=== PATIENT | male | born 1965 | race Caucasian/White ===

== ENCOUNTER 2018-01-28 21:07 | Emergency (ER) | payer OTHER, SELFPAY ==
[2018-01-28 21:07] VITALS: BP 160/81; PULSE 94; RESP 16; TEMP 36.8; O2SAT 97; BMI 34.6
--- NOTE | 2018-01-28 21:35 | CT_ITS ---
STUDY: CT ABDOMEN AND PELVIS WITHOUT CONTRAST REASON FOR EXAM: Male, 53 years old. RIGHT GROIN PAIN RADIATES TO BACK X 2 DAYS, PAINFUL URINATION, PT HAS NERVE STIMULATOR, HX MUSCLE REMOVED FROM ABDOMEN TO PLACE IN LEG RADIATION DOSAGE (If Supplied By Facility): CTDIvol = ( 15.16 ) mGy, DLP = ( 783.99 ) mGycm TECHNIQUE: Transaxial images were obtained from the dome of the diaphragm to the symphysis pubis without oral contrast, and without intravenous contrast. Sagittal and coronal images were reconstructed. Individualized dose optimization techniques were used for this CT. COMPARISON: 03.12.09. FINDINGS: The visualized lung bases are unremarkable. The visualized portions of the heart are within normal limits. There is decreased attenuation of the liver consistent with steatosis. There are multiple gallstones. Normal spleen. There is diffuse atrophy of the pancreas. Normal bilateral adrenal glands. Normal right kidney. Normal left kidney. Normal visualized stomach. Normal small intestine. Stool throughout the colon. The appendix is visualized and appears normal. Normal abdominal aorta. Normal inferior vena cava. Normal retroperitoneum. Normal urinary bladder. There are prostatic calcifications. There is a left sided subcutaneous implanted electronic device with leads extending into the spinal canal. This is likely an SCS (spinal cord stimulator). Normal osseous structures. There is an umbilical hernia containing fat. There is no bowel involvement. There is no incarceration. There is no findings suggesting that this is causing a bowel obstruction. CT/Abdomen/Pelvis without Cont IMPRESSION: There are multiple gallstones. FATTY LIVER. Constipation Electronically Signed: Tommie Schulz MD at 22:32 EDT , Service support ,
[2018-01-28 21:48] LABS: Bacteria 0 SEEN /hpf (None Seen); Color, Urine Yellow (Yellow); Glucose, Dipstick 1000 mg/dl (Normal); Ketone-Dipstick Negative (Negative); Leukocyte Esterase-Dipstick Negative /ul (Negative); Mucous, Urine 0 SEEN /hpf (<or=2+); Nitrite-Dipstick Positive (Negative); Occult Blood-Urine Negative /ul (Negative); Protein-Dipstick 15 mg/dl (Negative); Red Blood Cells-Urine 0 SEEN /hpf (0-5); Specific Gravity, Urine 1.015 (1.002-1.030); Squamous Epithelial Cells - UA 0 SEEN /hpf (0-5); Urine Bilirubin Dipstick Negative (Negative); Urine Clarity Clear (Clear); Urine Urobilinogen Normal (Normal); Urine pH 6.5 (5.0 - 8.0); White Blood Cells 0 SEEN /hpf (0-5)
[2018-01-28 21:59] LABS: Absolute Lymphocyte Count 2.53 X10^3/ul (0.83-4.51); Absolute Neutrophil Count 8.3 X10^3/uL (2.0-7.7); Basophil# 0.05 X10^3/uL; Basophil% 0.4 % (0-1); Eosinophil# 0.13 X10^3/uL; Eosinophils% 1.1 % (0-5); Hematocrit 47.3 % (40-54); Hemoglobin 16.1 g/dl (13.0-16.5); Lymphocyte # 2.53 X10^3/ul (4.0); Lymphocyte % 21.2 % (19-41); Mean Corpuscular Hgb 28.9 pg (27.0-32.0); Mean Corpuscular Volume 84.8 fL (80-94); Mean Platelet Vol. 9.9 fl (6.2-12.0); Monocyte# 0.92 X10^3/uL; Monocyte% 7.7 % (0-10); Neutrophil # 8.29 X10^3/uL (2.7-7.7); Neutrophil % 69.3 % (47-70); Platelet Count 384 K/mm3 (150-450); RBC Distribution Width SD 39.9 fl (35.1-43.9); Red Blood Count 5.58 M/mm3 (4.6-6.2)
[2018-01-28 22:02] LABS: POSITIVE COUNT NO; POSITIVE DIFFERENTIAL NO; POSITIVE MORPHOLOGY NO
[2018-01-28 22:15] LABS: ALB/GLOB Ratio 0.8 RATIO (0.9-2.4); AST(SGOT) 33 U/L (15-37); Alanine Aminotransfer ALT/SGPT 54 U/L (16-61); Albumin, Serum 3.7 g/dL (3.2-5.0); Alkaline Phosphatase 174 U/L (45-117); Anion Gap 8 (5-15); BUN 15 mg/dL (7-18); BUN/Creat Ratio 15.6 RATIO (10-20); Calcium,Total 9.4 mg/dL (8.5-10.1); Chloride 98 mmol/L (98-107); Creatinine, Serum 0.96 mg/dL (0.70-1.30); EST Glomerular Filtration Rate 87 mL/min (>60); Est Glom Filt Rate - Afr Amer 106 mL/min (>60); Estimated Creatinine Clearance 84.16 ml/min; Globulin 4.6 g/dL (2.2-4.2); Glucose 449 mg/dL (74-106); Lipase 104 U/L (73-393); Potassium 4.6 mmol/L (3.5-5.1); Protein, Total 8.3 g/dL (6.4-8.2); Sodium Level 133 mmol/L (136-145)
--- NOTE | 2018-01-28 23:06 | ED.DCSUM_ITS ---
- ER Visit Summary Date of Service: 01/28/18 Chief Complaint: Abdominal pain and back pain History of Present Illness: The patient is a 53 M presenting for evaluation secondary to back pain and abdominal pain. Patient states that he had a gradual onset of right-sided abdomen, right-sided groin, and back pain that goes around his back in a bandlike fashion. Patient states that there was no inciting factor no recent injury, lifting pushing pulling or fall. Pain is sharp and continuous seems to be worse with movement. There is no radiation to the leg. No numbness or weakness. No bowel or bladder incontinence, but the patient does endorse that he has some dysuria and frequency. Urinary frequency is old, the dysuria is new. Patient denies any presence of fevers. Denies any nausea vomiting or diarrhea. Review of systems otherwise negative. Physical Examination: Vital signs within normal limits. Well-nourished obese male no acute distress. Head normocephalic. Moist mucous membranes. No JVD. Heart regular rate and rhythm, lungs sounds clear to auscultation bilaterally. Abdomen was tender in the right lower quadrant with some voluntary guarding. No evidence of masses, hernia, no evidence of pulsatile mass and no rebound tenderness. Patient does have some extension of his pain up into his right upper quadrant. He also has some reproducible pain going around his back in the paraspinal region on the right as well as on the left. 5 out of 5 strength of the patient's right lower extremity. 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 2+ patellar and Achilles reflexes negative clonus and Babinski. Test Results: CBC shows leukocytosis of 12, chemistry unremarkable, liver panel shows mildly elevated alkaline phosphatase of 170 negative lipase urinalysis normal. CT abdomen and pelvis shows gallstones and constipation no evidence of kidney stones, diverticulitis, appendicitis. Emergency Department Course and Treatment: Patient presented for evaluation secondary to abdominal pain and back pain. Physical exam was relatively nonrevealing as the patient seems to has both diffuse abdominal and back pain so workup was obtained. Patient declined pain medication in the ER stating he took some prior to arriving. Patient's workup shows leukocytosis that was mild and likely associated with patient's level of pain. Chemistry liver lipase and urinalysis negative, CT abdomen and pelvis shows gallstones and constipation. Went back and reevaluated the patient, he does have a mild amount of right upper quadrant tenderness so I performed a bedside ultrasound which showed gallstones and a 2 mm gallbladder wall without pericholecystic fluid. Patient continues to have this reproducible pain over the right side of his abdomen that is worse with movement and palpation. He has no overlying vesicular rash. This point patient likely has an element of musculoskeletal pain. Patient was offered muscle relaxant, which she was given. He will be discharged with a course of the same. Patient was recommended signs and symptoms which to return. Disposition: Discharge Impression: 1. Abdominal wall strain This note was generated with [employer] dictation software. It may contain incorrect words, spelling, and punctuation that were not noted in review of the chart prior to signing ED Disposition - Plan for ED Patient: Disposition: Home or Assisted Living Chief Complaint: Back Diagnosis: Abdominal wall strain Instructions: ED Strain Groin Prescriptions: Cyclobenzaprine [Flexeril] 10 mg PO TID PRN #20 tab PRN Reason: Muscle Spasm Referrals: Afsaneh Krause DO [Primary Care Provider] - 1 Week if not improving
--- NOTE | 2018-01-28 23:25 | ED.RN ---
IV DC'ED, CATHETER INTACT, SMALL GAUZE DRESSING PLACED. DISCHARGE INSTRUCTIONS GIVEN TO AND REVIEWED WITH PATIENT, PATIENT DENIES QUESTIONS OR CONCERNS AND VOICES UNDERSTANDING OF DISCHARGE INSTRUCTIONS. PT AMBULATES OUT OF ROOM WITHOUT DIFFICULTY.
== END 2018-01-28 23:26 | disposition home or self-care (01) ==
PROVIDERS: Emergency Provider Emergency Medicine; Family Provider Internal Medicine; PCP Internal Medicine
DX: S39.011A Strain of muscle, fascia and tendon of abdomen, initial encounter (principal); X58.XXXA Exposure to other specified factors, initial encounter; Y93.9 Activity, unspecified; Y92.9 Unspecified place or not applicable; Y99.9 Unspecified external cause status; K80.20 Calculus of gallbladder without cholecystitis without obstruction; K59.00 Constipation, unspecified; R74.8 Abnormal levels of other serum enzymes; M54.9 Dorsalgia, unspecified; G89.29 Other chronic pain; R30.0 Dysuria; K21.9 Gastro-esophageal reflux disease without esophagitis; E66.9 Obesity, unspecified; Z79.899 Other long term (current) drug therapy; Z89.512 Acquired absence of left leg below knee
CPT/HCPCS: 74176; 80053; 81001; 83690; 85025; 99284; A4216

== ENCOUNTER 2020-05-22 11:00 | Outpatient (RCR) | payer OTHER, SELFPAY ==
--- NOTE | 2020-04-23 15:06 | HP.PTEVAL_ITS ---
Patient's Visit Information CONG STEVENS is a 55 year old M referred to Physical Therapy by Dr. Patrice aPck MD with a diagnosis of R knee pain. Date of Evaluation: 04/23/20 Physical Therapist: Tommie Moyer, PT, ATC - Visit Plan Frequency: 3x /Week Duration: 4 Weeks Plan: R LE strengthening, balance and proprio, core stab ex's, nustep, and HEP - Subjective Pt reports R knee pain for approximately one year. Pt reports he had a partial R TKA 5 years ago, and pt notes that really helped take away the pain. However, pain has returned and pt is sore today. Pt enters the clinic today with L LE BTK prosthesis from an injury that occurred in 2003. Pt reports most of his pain is on the inside of his R knee. Sleep difficulty secondary to pain. Pt reports increased pain with stair negotiation, prolonged walking, and with weather quinteros es. Pt uses a CP for pain control. No tingling or numbness in R LE with the exception of tingling from his RSD. Pt had recent xrays which revealed no significant findings. 6/10 pain at rest, 10/10 pain at worst - Pain R knee pain Pain Intensity (Out of 10): 6 Pain Intensity Range: 10 - Objective Neuro: B LE sensation is WNL where appropriate. R achilles reflex= 1/3. ROM: R knee 0-5-118 degrees; L knee 0-90. MMT: R knee is 4/5 and painful. L knee 5/5 throughout. Special testing: Pos apley compression test - Goals Goal 1:: Decrease R knee pain x 50% to aid with sleep Goal Time Frame: 4-6 Weeks Goal 2:: Increase R knee strength x 1 grade to aid stair negotiation Goal Time Frame: 4-6 Weeks Goal 3:: Increase R knee ROM x 10 degrees to aid with IADL's Goal Time Frame: 4-6 Weeks Goal 4:: I with HEP Goal Time Frame: 4-6 Weeks - Rehabilitation Potential Physical Therapy Diagnosis: Pt has R knee pain, weakness, and limited ROM secondary to deg changes in R knee Rehabilitation Potential: Good - Anticipated Interventions Patient/Client Instruction: Educate patient on: Condition, Plan of Care For the Purpose of:: To improve self management Therapeutic Exercise to Include: Strength training, Balance training, Flexibilty training, Active ROM, Dynamic Lumbar Stabilization For the Purpose of:: To decrease pain, To increase ROM, To improve muscle performance and motor function Cryotherapy (ice pack, ice massage): Yes For the Purpose of:: To decrease pain Thank you for the opportunity to evaluate your patient. For Medicare and Medicare HMO plans, please review the plan of care and approve it. It will need to be FAXED BACK to us at [phone] for Medicare purposes. For Medicare only, by signing this I certify the plan of care. Please let me know if there are questions or concerns regarding this plan of care. Physician Signature: Date:
--- NOTE | 2020-05-22 11:22 | HP.PTDCSUM ---
It has been my pleasure to treat CONG STEVENS referred by Dr. Patrice Pack MD, with the diagnosis of R knee pain for a total of 11 visit(s). Discharge Date: Please see the following information for a summary of their discharge status. Subjective: Pt reports the pain is still the same. He is very sore today R knee pain Pain Intensity (Out of 10): 10 % Improvement: 0 Objective/Function: R knee pain 10/10 today. R knee MMT: 4+/5. R knee ROM: 0-4-115. R knee girth: 39 cm Goal 1:: Decrease R knee pain x 50% to aid with sleep Goal Progress: Not Progressing Goal 2:: Increase R knee strength x 1 grade to aid stair negotiation Goal Progress: Progressing Goal 3:: Increase R knee ROM x 10 degrees to aid with IADL's Goal Progress: Not Progressing Goal 4:: I with HEP Goal Progress: Goal Met Plan: Discontinue, RTD If there are questions or concerns regarding this patient's physical therapy, please feel free to call me at [phone]. Thank you for the referral of this patient. Sincerely, Tommie Moyer, PT, ATC
== END 2020-05-22 19:00 | disposition home or self-care (01) ==
LOC: PT 11:00
PROVIDERS: PCP Internal Medicine; Referring Provider Orthopaedic Surgery; Visit Provider Orthopaedic Surgery
DX: S83.91XD Sprain of unspecified site of right knee, subsequent encounter (principal); M17.11 Unilateral primary osteoarthritis, right knee; Z96.651 Presence of right artificial knee joint
CPT/HCPCS: 97110; 97161; 97164

== ENCOUNTER 2023-09-30 07:39 | Outpatient (RCR) | payer OTHER, SELFPAY ==
--- NOTE | 2023-09-30 08:48 | HP.PTEVAL ---
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 Date of Evaluation: 09/30/23 Physical Therapist: Christophe Boston, PT, Cert MDT, OCS Visit Plan Frequency: 1 visit Plan: This patient will benefit from Power wheelchair to optimize functional [place] due to CRPS in lower extremity and along with decrease endurance with pain affects ability for the patient to walk thus PMD will be recommended Subjective Subjective: This 58 y/o male presents to physical therapy for power w/c. Patient 2003 Work injury 1800# steel roll crushed lower leg. Patient had had ORIF left ankle. Patient developed infection left had over 20 surgery to repair infection skin flaps ,wound vac and debridement's and biatric chamber wound . Patient developed complex regional syndrome. Patient eventually BKA 2010. Patient had extensive PT. Patient had training with Prothesis. Patient DR recommended Power w/c due to pain left leg and left CRS. Patient is unable to walk > 5 MINS and unable to stand < 5 mins due to pain. Patient has paresthesia/tingling legs and and hands. Patient has 1 story home 3 steps. Patient has Tub shower set up. Patient is and is currently disable from BKA and developing CRS. Patient has implant pain stimulator. Patient is on pain medication .Patient condition will warrant PMD. Pain Bilateral Knee: Pain Intensity (Out of 10): 8 Pain Intensity Range: 10 Bilateral Hand: Pain Intensity (Out of 10): 7 Pain Intensity Range: 10 Objective Objective: POSTURE: mild forward posture GAIT: reciprocal pattern with prothesis LEFT < 4mins then needs to rest from pain and endurance BALANCE: good- MMT: quads /hams 4-/5 ,hip flexion 3+/5 ,hip abduction 3+/5 ,ankle 4/5 AROM: Supine knee flexion 110 degrees ,hip flexion 100 degrres STAIRS: one step at time 3 steps, Goals Goal 1:: Patient to recommend power wheelchair to optimize functional [place] Goal Time Frame: 1 visit Rehabilitation Potential Physical Therapy Diagnosis: This patient will benefit from Power wheelchair to optimize functional [place] due to CRPS in lower extremity and along with decrease endurance with pain affects ability for the patient to walk thus PMD will be recommended Rehabilitation Potential: Good Anticipated Interventions Patient/Client Instruction: Educate patient on: Condition For the Purpose of:: Other Other: pnd Text: Thank you for the opportunity to evaluate your patient. For Medicare and Medicare HMO plans, please review the plan of care and approve it. It will need to be FAXED BACK to us at [phone] for Medicare purposes. For Medicare only, by signing this I certify the plan of care. Please let me know if there are questions or concerns regarding this plan of care. Physician Signature: Date:
== END 2023-09-30 19:00 | disposition home or self-care (01) ==
LOC: PT 07:39
PROVIDERS: PCP Internal Medicine; Referring Provider Physician Assistant; Visit Provider Physician Assistant
DX: M17.5 Other unilateral secondary osteoarthritis of knee; G90.523 Complex regional pain syndrome I of lower limb, bilateral
CPT/HCPCS: 97162

== ENCOUNTER → 2024-06-15 | Outpatient (CLI) | payer OTHER, SELFPAY ==
[2024-06-15 08:12] LABS: Absolute Lymphocyte Count 2.17 X10^3/uL (0.83-4.51); Absolute Neutrophil Count 7.4 X10^3/uL (2.0-7.7); Basophil# 0.07 X10^3/uL; Basophil% 0.7 % (0-1); Eosinophils% 0.9 % (0-5); Hematocrit 42.9 % (40-54); Hemoglobin 14.3 g/dL (13.0-16.5); Lymphocyte # 2.17 X10^3/ul (0.83-4.51); Lymphocyte % 20.6 % (19-41); Mean Corp Hgb Conc 33.3 g/dL (32-36); Mean Corpuscular Hgb 29.1 pg (27.0-32.0); Mean Corpuscular Volume 87.4 fL (80-94); Mean Platelet Vol. 9.6 fl (6.2-12.0); Monocyte# 0.72 X10^3/uL; Monocyte% 6.8 % (0-10); NRBC Flagged by Analyzer 0 % (0-5); Neutrophil # 7.43 X10^3/uL (2.7-7.7); Neutrophil % 70.6 % (47-70); Platelet Count 378 K/mm3 (150-450); RBC Distribution Width CV 12.8 % (11.6-14.6); RBC Distribution Width SD 40.5 fl (35.1-43.9); Red Blood Count 4.91 M/mm3 (4.6-6.2); White Blood Count 10.5 K/mm3 (4.4-11.0)
[2024-06-15 08:27] LABS: Hemoglobin A1c 10.5 % (3.8-5.6)
[2024-06-15 08:53] LABS: Vitamin B12 1740 pg/mL (211-911); Vitamin D,25 Hydroxy 37.4 ng/mL
[2024-06-15 09:08] LABS: ALB/GLOB Ratio 0.9 RATIO (0.9-2.4); AST(SGOT) 14 U/L (15-37); Alanine Aminotransfer ALT/SGPT 28 U/L (16-61); Albumin, Serum 3.5 g/dL (3.2-5.0); Alkaline Phosphatase 117 U/L (45-117); Anion Gap 6 (5-15); BUN 13 mg/dL (7-18); BUN/Creat Ratio 14.8 RATIO (10-20); Calcium,Total 8.8 mg/dL (8.5-10.1); Chloride 101 mmol/L (98-107); Cholesterol 134 mg/dL (200); Creatinine, Serum 0.88 mg/dL (0.70-1.30); EST Glomerular Filtration Rate 95 mL/min (>60); Est Glom Filt Rate - Afr Amer 114 mL/min (>60); Globulin 3.8 g/dL (2.2-4.2); Glucose 286 mg/dL (74-106); High Density Lipoprotein 44 mg/dL; Potassium 4.1 mmol/L (3.5-5.1); Protein, Total 7.3 g/dL (6.4-8.2); Sodium Level 135 mmol/L (136-145); Triglycerides 65 mg/dL; Very Low Density Lipoprotein 13 mg/dL (5-40)
== END | disposition home or self-care (01) ==
LOC: LAB 07:47
PROVIDERS: PCP Internal Medicine; Referring Provider Internal Medicine; Visit Provider Internal Medicine
DX: Z00.01 Encounter for general adult medical examination with abnormal findings (principal); Z51.81 Encounter for therapeutic drug level monitoring; E53.8 Deficiency of other specified B group vitamins; E55.9 Vitamin D deficiency, unspecified
CPT/HCPCS: 36415; 80053; 80061; 82306; 82607; 83036; 84443; 85025

== ENCOUNTER → 2024-12-21 | Outpatient (CLI) | payer OTHER, SELFPAY ==
[2024-12-21 08:05] LABS: Bacteria 0 SEEN /hpf (None Seen); Mucous, Urine 0 SEEN /hpf (<or=2+); Squamous Epithelial Cells - UA 0 SEEN /hpf (0-5); White Blood Cells 0 SEEN /hpf (0-5)
[2024-12-21 08:27] LABS: Absolute Lymphocyte Count 2.12 X10^3/uL (0.83-4.51); Absolute Neutrophil Count 7.3 X10^3/uL (2.0-7.7); Basophil# 0.08 X10^3/uL; Basophil% 0.8 % (0-1); Eosinophil# 0.17 X10^3/uL; Eosinophils% 1.6 % (0-5); Hematocrit 41.1 % (40-54); Hemoglobin 13.4 g/dL (13.0-16.5); Lymphocyte # 2.12 X10^3/ul (0.83-4.51); Lymphocyte % 20.4 % (19-41); Mean Corp Hgb Conc 32.6 g/dL (32-36); Mean Corpuscular Hgb 28.9 pg (27.0-32.0); Mean Corpuscular Volume 88.8 fL (80-94); Mean Platelet Vol. 9.2 fl (6.2-12.0); Monocyte# 0.71 X10^3/uL; Monocyte% 6.8 % (0-10); NRBC Flagged by Analyzer 0 % (0-5); Neutrophil # 7.26 X10^3/uL (2.7-7.7); Neutrophil % 69.8 % (47-70); Platelet Count 368 K/mm3 (150-450); RBC Distribution Width CV 12.8 % (11.6-14.6); RBC Distribution Width SD 41.6 fl (35.1-43.9); Red Blood Count 4.63 M/mm3 (4.6-6.2); White Blood Count 10.4 K/mm3 (4.4-11.0)
[2024-12-21 08:38] LABS: Color, Urine Yellow (Yellow); Glucose, Dipstick Normal (Normal); Ketone-Dipstick 5 mg/dl (Negative); Leukocyte Esterase-Dipstick 25 /ul (Negative); Nitrite-Dipstick Negative (Negative); Occult Blood-Urine Negative /ul (Negative); Protein-Dipstick 15 mg/dl (Negative); Specific Gravity, Urine 1.015 (1.002-1.030); Urine Bilirubin Dipstick Negative (Negative); Urine Clarity Clear (Clear); Urine Urobilinogen Normal (Normal)
[2024-12-21 09:01] LABS: Vitamin B12 405 pg/mL (211-911); Vitamin D,25 Hydroxy 65.4 ng/mL
[2024-12-21 09:02] LABS: Red Blood Cells-Urine 0-5 SEEN /hpf (0-5)
[2024-12-21 09:09] LABS: ALB/GLOB Ratio 0.9 RATIO (0.9-2.4); AST(SGOT) 12 U/L (15-37); Alanine Aminotransfer ALT/SGPT 34 U/L (16-61); Albumin, Serum 3.7 g/dL (3.2-5.0); Alkaline Phosphatase 70 U/L (45-117); Anion Gap 5 (5-15); BUN 16 mg/dL (7-18); Calcium,Total 9.8 mg/dL (8.5-10.1); Chloride 105 mmol/L (98-107); Cholesterol 145 mg/dL (200); Creatinine, Serum 0.84 mg/dL (0.70-1.30); EST Glomerular Filtration Rate 99 mL/min (>60); Est Glom Filt Rate - Afr Amer 120 mL/min (>60); Globulin 3.9 g/dL (2.2-4.2); Glucose 111 mg/dL (74-106); High Density Lipoprotein 50 mg/dL; Potassium 4.1 mmol/L (3.5-5.1); Protein, Total 7.6 g/dL (6.4-8.2); Sodium Level 139 mmol/L (136-145); Triglycerides 69 mg/dL; Very Low Density Lipoprotein 14 mg/dL (5-40)
== END | disposition home or self-care (01) ==
LOC: LAB 07:56
PROVIDERS: PCP Internal Medicine; Referring Provider Internal Medicine; Visit Provider Internal Medicine
DX: E11.65 Type 2 diabetes mellitus with hyperglycemia (principal); E55.9 Vitamin D deficiency, unspecified; E53.8 Deficiency of other specified B group vitamins
CPT/HCPCS: 36415; 80053; 80061; 81001; 82043; 82306; 82570; 82607; 84443; 85025

== ENCOUNTER → 2025-04-17 | Outpatient (CLI) | payer OTHER, SELFPAY ==
[2025-04-17 11:04] LABS: Amphetamine Urine NEGATIVE (<1000 ng/mL); Barbiturate Urine NEGATIVE (< 200 ng/mL); Benzodiazepine Urine NEGATIVE (< 200 ng/mL); Buprenorphine Urine NEGATIVE (< 200 ng/mL); Cocaine Urine NEGATIVE (< 300 ng/mL); Fentanyl, Urine NEGATIVE; Methadone Urine NEGATIVE (< 300 ng/mL); Opiates Urine NEGATIVE (< 300 ng/mL); Oxycodone, Urine NEGATIVE (< 100 ng/mL); PCP Urine NEGATIVE (< 25 ng/mL); THC Urine NEGATIVE (< 50 ng/mL)
== END | disposition home or self-care (01) ==
PROVIDERS: PCP Internal Medicine; Referring Provider Anesthesiology; Visit Provider Anesthesiology
DX: F11.20 Opioid dependence, uncomplicated (principal)
CPT/HCPCS: 80307

== ENCOUNTER → 2025-06-10 | Outpatient (CLI) | payer OTHER, SELFPAY ==
--- OUTSIDE RECORDS SUMMARY | 2025-06-10 07:22 | XMS RPT_ITS | CCD ---
Author Organization [facility] Care Team Providers Care Flatwork Assembler Name Role Phone Afsaneh Green Unavailable Afsaneh Green Unavailable Patricia Ash Unavailable Unavailable Josette Hoffman Unavailable Unavailable Burnisher, System Unavailable Unavailable Unavailable Unavailable Unavailable Primary Care Provider UnavailDanna Basilio Primary Care Provider Danna Barrera Primary Care Provider [phone] Danna Barrera Primary Care Provider Danna Barrera Primary Care Provider [phone] Danna Barrera Primary Care Provider [phone] ASHUTOSH HENNESSY Referring Unavailable DANNA BARRERA Primary Care Unavailable DANNA BARRERA Primary Care Unavailable Afsaneh Green DO Primary Care Provider [phone] AFSANEH GREEN Referring Unavailable AFSANEH GREEN Primary Care Unavailable ESTELA DAY Attending Unavailable ARIAN, ESTELA Montiel Referring Unavailable DANNA BARRERA Primary Care Unavailable ESTELA DAY Attending Unavailable ARIAN, ESTELA R Referring Unavailable DANNA BARRERA Primary Care Unavailable ESTELA DAY Attending Unavailable DAY, ESTELA R Referring Unavailable DANNA BARRERA Primary Care Unavailable ARIAN, ESTELA Montiel Attending Unavailable ARIAN, ESTELA Montiel Referring Unavailable DANNA BARRERA Primary Care Unavailable DAWIT HERNANDEZ Attending Unavail able ESTELA DAY Referring Unavailable DANNA BARRERA Primary Care Unavailable ESTELA DAY Attending Unavailable ARIAN, ESTELA Montiel Referring Unavailable DANNA BARRERA Primary Care Unavailable Dr. Afsaneh Green DO Primary Care Provider Bethany ROLLINS, Dr. Valadez Attending Provider [phone] Dr. Rory Sims MD Referring Provider [phone] Nelida, Afsaneh Attending Unavailable Nelida, Afsaneh Referring Unavailable Nelida, Afsaneh Primary Care Unavailable Nelida, Afsaneh Referring Unavailable Nelida, Afsaneh Primary Care Unavailable Nelida, Afsaneh Attending Unavailable Nelida, Afsaneh Referring Unavailable Nelida, Afsaneh Primary Care Unavailable Nelida, Afsaneh Attending Unavailable Nelida, Afsaneh Primary Care Unavailable Prayson, Rory Attending Unavailable Prayson, Rory Referring Unavailable Allergies Allergy Classification Reported Allergen(s) Allergy Type Date of Onset Reaction(s) Facility Adhesive Tape (2 sources) Adhesive Tape Substance Allergy 8 [facility] Work Phone: (2 sources) Adhesive Tape allergy to substance [facility] Work Phone: Comment on above: blisters (20 sources) Adhesive Tape; Translations: [ADHESIVE TAPE (ROSINS)] Propensity to adverse reactions 8 [facility] Work Phone: (1 source) ALLERGIES NOT ON FILE; Translations: [ALLERGIES NOT ON FILE] Propensity to adverse reactions (disorder) [facility] 2 Repository (1 source) Adhesive Tape Drug allergy (disorder) 4 [facility] Repository Medications Current Medications Medication Drug Class(es) Dates Sig (Normalized) Sig (Original) ALPRAZolam 0.5 mg oral tablet (14 sources) Benzodiazepine Start: 10-11-2016 End: 06-28-2022 take 1 tablet by mouth once daily Alprazolam 0.5 MG tablet Active 0.5 mg PO DAILY January 28, 2018 12:00am Comment on above: Take 0.5 mg by mouth once daily as needed. ascorbic acid 1000 mg oral tablet (20 sources) Vitamin C Start: 01-28-2018 take 1 tablet by mouth once daily Ascorbic Acid (Vitamin C) (Vitamin C) 1,000 MG tablet Active 1000 mg PO DAILY January 28, 2018 12:00am take 1 tablet by mouth once aguilar y Ascorbic Acid 100 mg chew Take 1 tablet by mouth once daily. Active Comment on above: Take 1 tablet by nash th once daily. benzonatate 100 mg oral capsule (20 sources) Non-narcotic Antitussive Start: 4 End: 4 take 1 capsule by mouth every eight hours as needed benzonatate (TESSALON PERLES) 100 mg capsule Take 1 capsule by mouth three times a day as needed for cough. 12 capsule 05/02/2024 Active Start: 11-18-2017 End: 06-28-2022 take 2 capsules by mouth every eight hours as needed benzonatate (TESSALON PERLES) 100 mg capsule Take 2 capsules by mouth three times daily as needed for Cough. 30 capsule 0 11/18/2017 06/28/2022 Discontinued (Duplicate Entry) Start: 11-09-2016 End: 06-28-2022 take 1 capsule by mouth three times daily as needed benzonatate (TESSALON PERLE) 100 mg capsule Indications: Acute bronchitis, unspecified organism Take 1 capsule by mouth three times daily as needed. 30 capsule 0 11/09/2016 06/28/2022 Discontinued Comment on above: Take 1 capsule by mo uth three times daily as needed. Take 2 capsules by m outh three times daily as needed for Cough. citalopram 10 mg oral tablet (12 sources) Serotonin Reuptake Inhibitor Start: 11-17-2007 End: 06-28-2022 CITALOPRAM 10 MG TAB Take by mouth. 0 11/17/2007 06/28/2022 Discontinued Start: 11-17-2007 CITALOPRAM 10 MG TAB 30mg bid 0 11/17/2007 Active Start: 08-16-2007 End: 03-10-2011 take 1 tablet by mouth twice daily CELEXA, 20MG (Oral Tablet) 1 Tablet bid for 0 days Refills: 0 Ordered: 10-Mar-2011 Patricia Ash RN Start : 16-Aug-2007 End : 10-Mar-2011 Inactive Comment on above: 30mg bid Take by mouth. cyclobenzaprine hydrochloride 10 mg oral tablet (2 sources) Muscle Relaxant Start: 01-29-20 take 1 tablet by mouth three times daily as needed for muscle spasms Cyclobenzaprine 10 MG tablet Active 10 mg PO THREE TIMES A DAY as needed for Muscle Spasm January 28, 2018 12:00am doxycycline hyclate 100 mg oral tablet (9 sources) Tetracycline-cla ss Drug Start: 05-02-20 End: 05-09-20 take 1 tablet by mouth twice daily doxycycline (VIBRA-TABS) 100 mg tablet Take 1 tablet by mouth two times a day for 7 days. 14 tablet 0 05/02/2024 05/09/2024 Active Start: 09-15-2007 End: 12-21-2007 take 1 capsule by mouth twice daily DOXYCYCLINE HYCLATE, 100MG (Oral Capsule) 1 (one) Capsule Twice daily for 0 days Refills: 0 Ordered: 15-Sep-2007 Patricia Ash RN Start : 15-Sep-2007 End : 21-Dec-2007 Inactive Start: 04-22-2007 End: 07-24-2007 take 1 tablet by mouth twice daily DOXYCYCLINE MONOHYDRATE, 100MG (Oral Tablet) 1 (one) Tablet BID for 0 days Quantity: 60 {Tablet} Refills: 0 Ordered: 22-Apr-2007 Danna Miller Start : 22-Apr-2007 End : 24-Jul-2007 Inactive Start: 04-21-2007 End: 07-24-2007 take 1 tablet by mouth twice daily DOXYCYCLINE HYCLATE, 100MG (Oral Tablet) 1 (one) Tablet Twice daily for 0 days Refills: 0 Ordered: 15-Sep-2007 Danna Miller Start : 21-Apr-2007 End : 24-Jul-2007 Inactive DULoxetine 60 mg delayed release oral capsule (20 sources) Serotonin and Norepinephrine Reuptake Inhibitor Start: 11-03-2016 End: 10-23-2024 take 1 capsule by mouth twice daily Duloxetine 60 MG capsule,delayed release(DR/EC) Active 60 mg PO TWICE A DAY January 28, 2018 12:00am Comment on above: Take 60 mg by mouth twice daily. Take 1 capsule by mo ut twice daily. Take 1 capsule by mo [facility] two times a day. eszopiclone 3 mg oral tablet (20 sources) Start: 11-03-2016 take 1 tablet by mouth at bedtime Eszopiclone 3 MG tablet Active 3 mg PO AT BEDTIME January 28, 2018 12:00am Comment on above: Take 3 mg by mouth a t bedtime as needed. 24 hr morphine sulfate 60 mg extended release oral capsule (12 sources) Opioid Agonist Start: 09-06-2007 End: 06-28-2022 morphine sulfate(AVINZA 60 MG 24 HR CAP) Take by mouth. 0 11/17/2007 06/28/2022 Discontinued (Other) Comment on above: Take one(1) tablet d aily at bedtime. Take by mouth. Multivitamin (Daily Multiple Vitamin) 1 EACH tablet (2 sources) Start: 01-28-2018 take 1 tablet by mouth once daily Multivitamin (Daily Multiple Vitamin) 1 EACH tablet Active 1 NMA PO DAILY January 28, 2018 12:00am Start: 01-28-2018 take 1 tablet by nash th once daily Multivitamin (Daily Multiple Vitamin) 1 EACH tablet Active 1 EACH PO DAILY January 28, 2018 12:00am MULTIVITAMIN ORAL (20 sources) take 1 tablet by nash th once daily MULTIVITAMIN ORAL Take 1 tablet by mouth once daily. Active take 1 tablet by mouth once aguilar y MULTIVITAMIN ORAL Take 1 tablet by mouth once daily. 0 Active Comment on above: Take 1 tablet by nash th once daily. naloxegol 25 mg oral tablet (20 sources) Opioid Antagonist Start: 10-19-20 End: 10-24-20 24 take 1 tablet by mouth once daily as needed for constipation Naloxegol (Movantik) 25 MG tablet Active 25 mg PO DAILY as needed for Constipation January 28, 2018 12:00am Comment on above: Take 25 mg by mouth once daily as needed. Take 1 tablet by nash once daily as needed. naloxone 4 mg/actuation nasal spray (NARCAN) (13 sources) Start: 03-10-20 naloxone 4 mg/actuation nasal spray (NARCAN) Use 1 spray in one nostril as needed for overdose. May repeat every 2 to 3 min in alternating nostrils until medical assistance is available 1 Each 03/10/2023 Active Start: 03-10-2023 naloxone 4 mg/ actuation nasal spray (NARCAN) Use 1 spray in one nostril as needed for overdose. May repeat every 2 to 3 min in alternating nostrils until medical assistance is available 1 Each 0 03/10/2023 Active omeprazole 40 mg delayed release oral capsule (20 sources) Proton Pump Inhibitor Start: 11-03-2016 End: 10-23-2024 take 1 capsule by mouth twice daily Omeprazole 40 MG capsule,delayed release(DR/EC) Active 40 mg PO TWICE A DAY January 28, 2018 12:00am Comment on above: Take 40 mg by mouth twice daily. Take 1 capsule by [facility] twice daily. Take 1 capsule by [facility] two times a day. oxyCODONE hydrochloride 5 mg oral capsule (14 sources) Opioid Agonist Start: 11-17-2007 End: 06-28-2022 OXYCODONE 5 MG CAP Take by mouth. 0 11/17/2007 06/28/2022 Discontinued (Other) End: 03-10-2011 take 1 tablet by mouth twice daily OXYCONTIN, 30MG (Oral Tablet Extended Release 12 Hour) 1 bid for 0 days Refills: 0 Ordered: 10-Mar-2011 Patricia Ash RN End : 10-Mar-2011 Inactive End: 03-10-2011 OXYCODONE HCL, 5MG (Oral Cap nikolas) 1-2 q6hrs prn for 0 days Refills: 0 Ordered: 10-Mar-2011 Patricia Ash RN End : 10-Mar-2011 Inactive Comment on above: 1-2 every 8 hours Take by mouth. 12 hr oxyMORphone hydrochloride 40 mg extended release oral tablet (20 sources) Opioid Agonist Start: 7 take 1 tablet by mouth every twelve hours Oxymorphone 40 MG tablet extended release 12 hr Active 40 mg PO Q12H January 28, 2018 12:00am pregabalin 100 mg oral capsule (12 sources) Start: 8 End: 2 pregabalin(LYRICA 100 MG CAP) Take by mouth. 0 11/17/2007 06/28/2022 Discontinued (Other) Start: 11-17-2007 pregabalin(LYR ICA 100 MG CAP) take 3 cap bid 0 11/17/2007 Active Start: 05-25-2007 End: 03-10-2011 take 1 capsule by mouth twice daily LYRICA, 300MG (Oral Capsule) 1 Capsule BID for 0 days Quantity: 180 {Capsule} Refills: 3 Ordered: 10-Mar-2011 Patricia Ash RN Start : 25-May-2007 End : 10-Mar-2011 Inactive Comment on above: take 3 cap bid Take by mouth. sildenafil 50 mg oral tablet (1 source) Phosphodiesterase 5 Inhibitor Start: 10-05-20 23 End: 02-02-20 24 sildenafil (VIAGRA) 50 mg tablet Take 1 tablet by mouth as needed (30-60 minutes before sexual intercourse). TAKE 30-60 MINUTES BEFORE SEXUAL INTERCOURSE NEEDED. 10 tablet 3 10/05/2023 02/02/2024 Active Comment on above: Take 1 tablet by nash as needed (30-60 minutes before sexual intercourse). TAKE 30-60 MINUTES BEFORE SEXUAL INTERCOURSE NEEDED. tadalafil 10 mg oral tablet (20 sources) Phosphodiesterase 5 Inhibitor Start: 11-15-19 End: 03-14-20 take 1 tablet by mouth once daily as needed, then take 1 tablet by mouth every twenty-four hours as needed Tadalafil (CIALIS) 10 mg tablet Take 1 tablet by mouth once daily as needed (intercourse). No more than one pill in 24 hours 10 tablet 3 11/15/2023 Active Comment on above: Take 1 tablet by nash th once daily as needed (intercourse). No more than one pill in 24 hours tapentadol 100 mg oral tablet (20 sources) Opioid Agonist Start: 03-24-20 take 1 tablet by mouth four times daily Tapentadol (Nucynta) 100 mg tablet Active 100 mg PO 4 TIMES DAILY March 24, 2024 12:00am Start: 11-15-2023 End: 06-24-2024 take 1 tablet by mouth every six hours as needed tapentadol (NUCYNTA) 100 mg tab Indications: Complex regional pain syndrome type 1 of left lower extremity Take 1 tablet by mouth every 6 hours as needed for up to 30 days. 120 tablet 0 01/12/2024 02/11/2024 Active Start: 03-23-2023 End: 05-15-2023 take 1 tablet by mouth twice daily tapentadol (NUCYNTA ER) 250 mg tab ER 12 hr Indications: Complex regional pain syndrome type 1 of left lower extremity Take 1 tablet by mouth twice daily for 30 days. 60 tablet 0 04/15/2023 04/19/2023 Discontinued (Other) Start: 04-20-2022 End: 10-26-2023 take 1 tablet by mouth every six hours as needed tapentadol (NUCYNTA) 100 mg tab Indications: Complex regional pain syndrome type 1 of left lower extremity Take 1 tablet by mouth every 6 hours as needed for up to 30 days. 120 tablet 0 09/26/2023 10/26/2023 Active Comment on above: Take 100 mg by mouth every 6 hours as needed. Take 1 tablet by nash th every 6 hours as needed for up to 30 days. Take 1 tablet by nash th twice daily for 30 days. Do not start before March 23, 2023. Take 1 tablet by nash th twice daily for 30 days. Take 1 tablet by [facility] every 6 hours as needed for up to 30 days. Do not start before June 29, 2023. terazosin 1 mg oral capsule (20 sources) alpha-Adrenergic [place] Start: 11-03-2016 End: 07-18-2024 take 1 capsule by mouth once daily terazosin (HYTRIN) 1 mg capsule Take 1 capsule by mouth once daily. 90 capsule 1 01/20/2024 07/18/2024 Active Start: 11-17-2007 End: 06-28-2022 terazosin hcl(HYTRIN 2 MG CA P) Take by mouth. 0 11/17/2007 06/28/2022 Discontinued (Duplicate Entry) Comment on above: take 1/2 cap qd Take 1 mg by mouth o nce daily. Take by mouth. Take 1 capsule by mo [facility] once daily. traZODone (20 sources) Serotonin Reuptake Inhibitor TRA ZODONE HCL (TRAZODONE ORAL) Take by mouth. Active TRAZODONE HCL (T RAZODONE ORAL) Take by mouth. 0 Active Comment on above: Take by mouth. vitamin e 268 mg oral capsule (10 sources) Start: 11-17-2007 End: 06-28-2022 VITAMIN E 400 UNIT CAP Take one(1) daily 0 11/17/2007 06/28/2022 Discontinued Start: 11-17-2007 VITAMIN E 400 UNIT CAP Take one(1) daily 0 11/17/2007 Active Comment on above: Take one(1) daily Completed/Discontinued Medications Medication Drug Class(es) Dates Sig (Normalized) Sig (Original) amoxicillin 875 mg / clavulanate 125 mg oral tablet (3 sources) Penicillin-class Antibacterial Start: 03-24-2024 End: 03-29-2024 Amoxicillin-Pot Clavulanate 875-125 mg tablet Discontinued 1 {tbl} PO TWICE A DAY 10 March 24, 2024 12:00am March 28, 2024 12:00am March 29, 2024 12:05am Start: 03-14-2011 End: 07-19-2011 take 1 tablet by mouth twice daily AUGMENTIN, 875-125MG (Oral Tablet) 1 Tablet bid for 0 days Quantity: 20 {Tablet} Refills: 0 Ordered: 19-Jul-2011 Patricia Ash RN Start : 14-Mar-2011 End : 19-Jul-2011 Inactive azithromycin 500 mg oral tablet (2 sources) Macrolide Antimicrobial Start: 08-10-2007 End: 10-05-2007 take 1 tablet by mouth once daily AZITHROMYCIN, 500MG (Oral Tablet) 1 (one) Tablet Daily for 0 days Quantity: 5 {Tablet} Refills: 0 Ordered: 10-Aug-2007 Patricia Ash RN Start : 10-Aug-2007 End : 05-Oct-2007 Inactive betamethasone 0.5 mg/ml / clotrimazole 10 mg/ml topical cream (2 sources) Azole Antifungal, Corticosteroid Start: 2007 End: 09-25-2007 LOTRISONE, 1-0.05% (External Cream) 1 (one) Cream BID for 0 days Quantity: 1 {Cream} Refills: 0 Ordered: 23-Jan-2007 Patricia Ash RN Start : 23-Jan-2007 End : 25-Sep-2007 Inactive Comments: MED TUBE Comment on above: MED TUBE 12 hr buPROPion hydrochloride 200 mg extended release oral tablet (12 sources) Aminoketone Start: 01-16-2008 End: 03-10-2009 WELLBUTRIN SR, 200MG (Oral Tablet Extended Release 12 Hour) 1 (one) Tablet ER 12HR Twice daily for 0 days Quantity: 60 {Tablet_ER_12HR} Refills: 4 Ordered: 16-Jan-2008 Tuyet Kyle Start : 16-Jan-2008 End : 10-Mar-2009 Inactive Start: 11-17-2007 End: 06-28-2022 bupropion hcl(WELLBUTRIN 100 MG TAB) take 2 tabs bid 0 11/17/2007 06/28/2022 Discontinued Comment on above: take 2 tabs bid Clindamycin (2 sources) Lincosamide Antibacterial Clindamycin HCl 1 qi d Active ferrous sulfate 325 mg oral tablet (2 sources) Start: 03-10-20 End: 04-09-20 11 take 1 tablet by mouth once daily IRON, 325 (65 Fe)MG (Oral Tablet) 1 Tablet qd for 30 days Quantity: 30 {Tablet} Refills: 0 Ordered: 10-Mar-2011 Patricia Ash RN Start : 10-Mar-2011 End : 09-Apr-2011 Inactive gabapentin 800 mg oral tablet (2 sources) Anti-epileptic Agent End: 04-19-20 07 take 1 tablet by mouth every eight hours NEURONTIN, 800MG (Oral Tablet) 1 q8hr for 0 days Refills: 0 Ordered: 15-Sep-2007 Danna Miller End : 19-Apr-2007 Inactive HYDROmorphone hydrochloride 4 mg oral tablet (20 sources) Opioid Agonist Start: 01-29-20 18 End: 03-24-20 take 2 mg by mouth every eight hours as needed for pain Hydromorphone (Dilaudid) 4 MG tablet Discontinued 2 mg PO EVERY 8 HOURS NEEDED as needed for Pain January 28, 2018 12:00am March 24, 2024 11:12am Start: 10-04-2016 End: 04-20-2023 HYDROmorphone (DILAUDID) 2 m g tablet End: 04-20-2023 HYDROMORPHONE HCL (DILAUDID ORAL) Take by mouth. 0 04/20/2023 Discontinued HYDROMORPHONE HC L (DILAUDID ORAL) Take by mouth. 0 Active take 1 tablet by nash th every twenty-four hours EXALGO, 12MG (Oral Tablet Extended Release 24 Hour) 1 bid (12 MG) Active Comment on above: Take by mouth. lactobacillus acidophilus 16 mg oral capsule (2 sources) End: 03-10-2011 take 1 capsule by mouth once daily ACIDOPHILUS, 10MG (Oral Capsule) 1 qd for 0 days Refills: 0 Ordered: 10-Mar-2011 Patricia Ash RN End : 10-Mar-2011 Inactive methadone hydrochloride 5 mg oral tablet (6 sources) Opioid Agonist Start: 04-19-2023 End: 05-19-2023 take 1 tablet by mouth every twelve hours methadone (DOLOPHINE) 5 mg tablet Indications: Reflex sympathetic dystrophy of right leg Take 1 tablet by mouth every 12 hours for 30 days. 60 tablet 0 04/19/2023 04/21/2023 Discontinued (Clinical Decision) Start: 08-16-2007 End: 08-16-2007 METHADONE HCL, 5MG (Oral Tab let) 1 Tablet q 6 hr to 12 hr prn for 0 days Refills: 0 Ordered: 15-Sep-2007 Danna Miller Start : 16-Aug-2007 End : 16-Aug-2007 Discontinued Comments: need short term rx with rsd per og Comment on above: need short term rx w ith rsd per og Take 1 tablet by nash th every 12 hours for 30 days. metroNIDAZOLE 500 mg oral tablet (2 sources) Nitroimidazole Antimicrobial Start: 9 End: 9 take 1 tablet by mouth three times daily FLAGYL, 500MG (Oral Tablet) 1 (one) Tablet tid for 0 days Quantity: 30 {Tablet} Refills: 0 Ordered: 12-Mar-2009 Patricia Ash RN Start : 12-Mar-2009 End : 30-Jul-2009 Inactive Comments: avoid with etoh Comment on above: avoid with etoh Multivitamin preparation (2 sources) take 1 tablet by mouth once daily MULTI-VITAMIN (Oral Tablet) 1 qd for 0 days Refills: 0 Ordered: 30-Jul-2009 Patricia Ash RN Active take 1 tablet by mouth once aguilar y MULTI-VITAMIN (Oral Tablet) 1 qd for 0 days Refills: 0 Ordered: 30-Jul-2009 Patricia Ash C[employer] Active naloxone hydrochloride 40 mg/ml nasal spray (20 sources) Opioid Antagonist Start: 03-09-2023 End: 03-10-2023 naloxone 4 mg/actuation nasal spray (NARCAN) Use 1 spray in one nostril as needed for overdose. May repeat every 2 to 3 min in alternating nostrils until medical assistance is available 1 Each 0 03/10/2023 Active Comment on above: Use 1 spray in one n ostril as needed for overdose. May repeat every 2 to 3 min in alternating nostrils until medical assistance is available omeprazole 20 mg / sodium bicarbonate 1100 mg oral capsule (2 sources) Proton Pump Inhibitor take 1 capsule by mouth once daily ZEGERID, 20-1100MG (Oral Capsule) 1 cap qd for 0 days Refills: 0 Ordered: 30-Jul-2009 Patricia Ash RN Active promethazine hydrochloride 25 mg oral tablet (2 sources) Phenothiazine Start: 03-12-2009 End: 07-30-2009 take 1 tablet by mouth every six hours as needed PHENERGAN, 25MG (Oral Tablet) 1 (one) Tablet q6h prn for nause for 0 days Quantity: 15 {Tablet} Refills: 0 Ordered: 12-Mar-2009 Patricia Ahs RN Start : 12-Mar-2009 End : 30-Jul-2009 Inactive sulfamethoxazole 800 mg / trimethoprim 160 mg oral tablet (2 sources) Dihydrofolate Reductase Inhibitor Antibacterial, Sulfonamide Antimicrobial End: 03-10-2011 take 1 tablet by mouth twice daily BACTRIM DS, 800-160MG (Oral Tablet) 1 bid for 0 days Refills: 0 Ordered: 10-Mar-2011 Patricia Ash RN End : 10-Mar-2011 Inactive VANCOCIN HCL, 1GM/200ML (Intravenous Solution) (1 source) Start: 09-05-2007 End: 09-25-2007 VANCOCIN HCL, 1GM/200ML (Intravenous Solution) Solution for 0 days Refills: 0 Ordered: 05-Sep-2007 Patricia Ash [employer] Start : 05-Sep-2007 End : 25-Sep-2007 Inactive Comments: 1g mixed and given through pic line by [employer]. Lot [id number] [id number] 04-10-09 Comment on above: 1g mixed and given t hrough pic line by [employer]. Lot [id number] DDdd 04-10-09 vancomycin 1000 mg injection (2 sources) Glycopeptide Antibacterial Start: 03-13-2011 End: 03-14-2011 VANCOMYCIN HCL, 1000MG (Intravenous Solution Reconstituted) 1g For Solution qd for 1 days Quantity: 1 {For_Solution} Refills: 0 Ordered: 13-Mar-2011 Afsaneh Green DO, DO, Kathleen Start : 13-Mar-2011 End : 14-Mar-2011 Inactive Comments: lot [id number] 05/11 Start: 09-05-2007 End: 09-25-2007 VANCOCIN HCL, 1GM/200ML (Int ravenous Solution) Solution for 0 days Refills: 0 Ordered: 05-Sep-2007 Patricia Ash RN Start : 05-Sep-2007 End : 25-Sep-2007 Inactive Comments: 1g mixed and given through pic line by [employer]. Lot [id number] [id number] 04-10-09 Comment on above: 1g mixed and given t hrough pic line by [employer]. Lot [id number] DDdd 04-10-09 lot [id number] 05/11 VANCOMYCIN HCL, 1000MG (Intravenous Solution Reconstituted) (1 source) Start: 03-13-2011 End: 03-14-2011 VANCOMYCIN HCL, 1000MG (Intravenous Solution Reconstituted) 1g For Solution qd for 1 days Quantity: 1 {For_Solution} Refills: 0 Ordered: 13-Mar-2011 Afsaneh Green DO, DO, Kathleen Start : 13-Mar-2011 End : 14-Mar-2011 Inactive Comments: lot [id number] 05/11 Comment on above: lot [id number] exp 05/11 VITAMIN C CR, 1000-100MG (Oral Tablet Extended Release) (2 sources) take 1 tablet by mouth once daily VITAMIN C CR, 1000-100MG (Oral Tablet Extended Release) 1 qd (1000-100 MG) Active zolpidem tartrate 10 mg oral tablet (20 sources) gamma-Aminobutyric Acid-ergic Agonist zolpidem (AMBIEN) 10 mg Take by mouth at bedtime as needed. 0 Active take 1 tablet by nash th once daily at bedtime AMBIEN CR, 12.5MG (Oral Tablet Extended Release) 1 qhs (12.5 MG) Active Comment on above: Take by mouth at bed time as needed. Problems Active Problems Problem Classification Problem Date Documented Date Episodic/Chronic Chronic obstructive pulmonary disease and bronchiectasis (1 source) Chronic obstructive pulmonary disease and bronchiectasis Diabetes mellitus with complications (6 sources) Hyperglycemia due to type 2 diabetes mellitus; Translations: [Type 2 diabetes mellitus with hyperglycemia] Onset: 07-04-2024 08-15-2024 Chronic Esophageal disorders (1 source) Erosive esophagitis 07-19-2011 Chronic Esophageal disorders (1 source) Erosive esophagitis 07-19-2011 Episodic Fracture of lower limb (4 sources) Fracture of medial malleolus, closed; Translations: [Trimalleolar fracture, closed] 07-19-2011 Episodic Headache; including migraine (2 sources) Headache; Translations: [Headache] 08-05-2015 Episodic Infective arthritis and osteomyelitis (except that caused by tuberculosis or sexually transmitted disease) (4 sources) Unspecified osteomyelitis, ankle and foot; Translations: [Unspecified osteomyelitis, lower leg] 07-19-2011 Chronic Intestinal infection (6 sources) Diarrhea of presumed infectious origin; Translations: [Diarrhea of presumed infectious origin] Resolved: 03-27-2009 03-27-2009 Episodic Joint disorders and dislocations; trauma-related (4 sources) Closed dislocation of ankle; Translations: [Tear of medial cartilage or meniscus of knee, current] 07-19-2011 Episodic Miscellaneous mental health disorders (20 sources) Other pain disorders related to psychological factors; Translations: [PAIN, PSYCHOGENIC NEC] Onset: 03-09-2023 07-19-2011 Chronic Mood disorders (8 sources) Depressive disorder; Translations: [Depressive disorder] 08-05-2015 Chronic Nausea and vomiting (4 sources) Nausea and vomiting; Translations: [Nausea & vomiting] Resolved: 03-27-2009 10-02-2015 Episodic Open wounds of extremities (2 sources) Traumatic amputation of leg(s) (complete) (partial), unilateral, below knee, without mention of complication; Translations: [AMPUT TRAUM LEG BELOW KNEE UNILT W/O COMPL] 07-19-2011 Chronic Osteoarthritis (20 sources) Osteoarthritis of right knee joint; Translations: [Unilateral primary osteoarthritis, right knee] Onset: 05-15-2022 Chronic Other aftercare (1 source) Patient encounter status; Translations: [Other snf (current) drug therapy] Episodic Other ear and sense organ disorders (2 sources) Sensorineural hearing loss, bilateral; Translations: [LOSS, SENSORINEURAL HEARING, BILAT] 07-19-2011 Chronic Other lower respiratory disease (2 sources) Cough; Translations: [Subacute cough] 05-02-2024 Episodic Other nervous system disorders (20 sources) Reflex sympathetic dystrophy of the lower limb; Translations: [Reflex sympathetic dystrophy of the lower limb] 07-19-2011 Chronic Comment on above: B/L lower extemities now Other nervous system disorders (20 sources) Complex regional pain syndrome of lower limb; Translations: [Complex regional pain syndrome I of right lower limb] Onset: 05-15-2022 Chronic Other nervous system disorders (20 sources) Complex regional pain syndrome type I of left lower limb; Translations: [Complex regional pain syndrome I of left lower limb] Chronic Other nervous system disorders (20 sources) Complex regional pain syndrome type I of right lower limb; Translations: [Complex regional pain syndrome I of right lower limb] Onset: 05-15-2022 Chronic Other nervous system disorders (1 source) Complex regional pain syndrome I of left lower limb; Translations: [Complex regional pain syndrome type 1 of left lower extremity] Onset: 04-04-2024 Chronic Other nervous system disorders (1 source) Complex regional pain syndrome I of right lower limb; Translations: [Complex regional pain syndrome type 1 of right lower extremity] Onset: 04-04-2024 Chronic Other upper respiratory infections (1 source) Sinusitis; Translations: [Chronic sinusitis, unspecified] 03-24-2024 Chronic Residual codes; unclassified (2 sources) Insomnia; Translations: [Insomnia, unspecified] 09-17-2015 Episodic Residual codes; unclassified (2 sources) Insomnia, unspecified Episodic Skin and subcutaneous tissue infections (8 sources) Cellulitis of trunk; Translations: [Cellulitis and abscess of lower limb] Resolved: 03-27-2009 12-11-2015 Episodic Comment on above: incisional - s/p fla p prod on abdomen related to RSD R Sprains and strains (2 sources) Injury of abdominal wall; Translations: [Strain of muscle, fascia and tendon of abdomen, initial encounter] 01-29-2018 Episodic Substance-related disorders (1 source) Opioid dependence, uncomplicated; Translations: [Opioid dependence, uncomplicated] Onset: 05-15-2025 Chronic Unclassified (20 sources) CELLULITIS OF LEG, NOS, EXCEPT FOOT (682.6) Unclassified (20 sources) Unclassified (20 sources) Cellulitis and abscess of leg, except foot (682.6) Unclassified (20 sources) Leg/Lower Extremity (707.10) Unclassified (1 source) BRONCHITIS, NOT SPECIFIED ACUTE OR CHRONIC (490.) Unclassified (1 source) Subacute cough; Translations: [Subacute cough] Onset: 05-02-2024 Past or Other Problems Problem Classification Problem Date Documented Da te Episodic/Chronic Abdominal pain (2 sources) Left upper quadrant pain; Translations: [Abdominal pain, acute, left upper quadrant] Resolved: 03-27-2009 09-16-2015 Episodic Chronic obstructive pulmonary disease and bronchiectasis (2 sources) Bronchitis; Translations: [Bronchitis] Resolved: 03-27-2009 08-05-2015 Episodic Comment on above: azithromycin will co mpliment iv rocephen since still sick despite iv rochephen Chronic ulcer of skin (2 sources) Ulcer of lower limb, unspecified; Translations: [Leg/Lower Extremity] Resolved: 03-27-2009 03-27-2009 Chronic Influenza (1 source) Influenza 07-19-2011 Mood disorders (2 sources) Mood disorders Other aftercare (20 sources) Long-term current use of drug therapy; Translations: [Other ocean transportation intermediary (current) drug therapy] Onset: 07-31-2020 03-29-2022 Episodic Other skin disorders (2 sources) Eruption; Translations: [Rash] Resolved: 03-27-2009 03-27-2009 Episodic Comment on above: contact dermititis v s fungus. If does not improve will get biopsy. Unclassified (4 sources) abdominal wound drainage 07-19-2011 Unclassified (2 sources) Well Male Exam (V70.0) Unclassified (2 sources) Rash (782.1) Unclassified (1 source) Patient encounter status; Translations: [Encounter for routine history and physical exam for male] 08-05-2015 Unclassified (2 sources) FEMUR, NOS 07-19-2011 Comment on above: Surgery lt Unclassified (2 sources) Leg sx and skin graphs 07-19-2011 Comment on above: January 24 and February 28 left leg Unclassified (2 sources) plastic sx on ab wher he had the muscle flap 07-19-2011 Unclassified (6 sources) AMPUT TRAUM LEG BELOW KNEE UNILT W/O COMPL (897.0) Unclassified (2 sources) Unspecified Diagnosis Unclassified (2 sources) Abdominal Pain,LUQ (789.02) Unclassified (2 sources) ANKLE, NOS 07-19-2011 Comment on above: Reduction, Lt Unclassified (1 source) Reflux, sympathetic dystrophy 07-19-2011 Results Test Name Value Interpretation Reference Range Facility L3410.9992on 04-28-2025 [facility] Misc. COMMENT Normal . [facility] Comment on above: Order Comment: [id number] TAPENTADOL URINE Result Comment: Test Ordered: [id number] Tapentadol, Urine Tapentadol, Urine Note: ng/mL UI See Final Results Reference Range: Chgwib=749 This test was developed and its performance characteristics determined by [facility]. It has not been cleared or approved by the Food and Drug Administration. Tapentadol Positive [A ] UI Reference Range: Bhpohy=305 Tapentadol Conf, MS, UR >92564 ng/mL UI Reference Range: Vbmpgt=743 Tapentadol detected; this finding is consistent with use of medication Nucynta, or generic formulations. Performed at: [facility] [address] [place], [place] [id number] Financial Management Consultant: Nicolas Griffin PhD, Phone: [phone] Performed at: [facility] [address] [id number] Financial Management Consultant: Catrachito Armas PhD, Phone: [phone] Performed By: #### L 505.5000, L3410.9992 #### [facility] [address] [place], [place], [id number] Amphetamine detection with 1 000 ng/mL as cutoffOrdered By: Rory Sims on 04-17-2025 Amphetamines Screen method >1000 ng/mL Ql (U) Negative < 200 ng/mL [facility] No Panel InformationOrdered By: Rory Sims on 04-17-2025 Urine Buprenorphine Qualitative Negative < 200 ng/mL [facility] Urine Oxycodone Screen Negative < 100 ng/mL [facility] Quantitative urine opiates m easurementOrdered By: Rory Sims on 04-17-2025 Opiates Ql (U) Negative < 300 ng/mL [facility] Screening urine fentanyl roberth surementOrdered By: Rory Sims on 04-17-2025 fentaNYL Screen Ql (U) Negative [facility] Urine Drug Screen (VISTA)on 04-17-2025 AMPHETAMINES Negative Normal <1000 ng/mL [facility] Comment on above: Order Comment: PAIN MANAGMENT Performed By: #### L 505.5000, L3410.9992 #### [facility] [address] [place], [place], [id number] BARBITIURATES Negative Normal < 200 ng/mL [facility] Comment on above: Order Comment: PAIN MANAGMENT Performed By: #### L 505.5000, L3410.9992 #### [facility] [address] [facility] [id number] BENZODIAZIPINE Negative Normal < 200 ng/mL [facility] Comment on above: Order Comment: PAIN MANAGMENT Performed By: #### L 505.5000, L3410.9992 #### [facility] [address] [place], [place], [id number] BUP Ur Drug Scr Negative Normal < 200 ng/mL [facility] Comment on above: Order Comment: PAIN MANAGMENT Performed By: #### L 505.5000, L3410.9992 #### [facility] [address] [place], [address] COCAINE Negative Normal < 300 ng/mL [facility] Comment on above: Order Comment: PAIN MANAGMENT Performed By: #### L 505.5000, L3410.9992 #### [facility] [address] [place], [address] Fentanyl Negative Normal [facility] Comment on above: Order Comment: PAIN MANAGMENT Performed By: #### L 505.5000, L3410.9992 #### [facility] [address] [place], [address] METHADONE Negative Normal < 300 ng/mL [facility] Comment on above: Order Comment: PAIN MANAGMENT Performed By: #### L 505.5000, L3410.9992 #### [facility] [address] [place], [address] OPIATES Negative Normal < 300 ng/mL [facility] Comment on above: Order Comment: PAIN MANAGMENT Performed By: #### L 505.5000, L3410.9992 #### [facility] [address] [place], [address] OXYCODONE Negative Normal < 100 ng/mL [facility] Comment on above: Order Comment: PAIN MANAGMENT Performed By: #### L 505.5000, L3410.9992 #### [facility] [address] [place], [address] PCP Negative Normal < 25 ng/mL [facility] Comment on above: Order Comment: PAIN MANAGMENT Performed By: #### L 505.5000, L3410.9992 #### [facility] [address] [place], [address] THC Negative Normal < 50 ng/mL [facility] Comment on above: Order Comment: PAIN MANAGMENT Performed By: #### L 505.5000, L3410.9992 #### [facility] [address] [place], [place], [id number] Urine benzodiazepine levelOr dered By: Rory Sims on 04-17-2025 Benzodiazepines Ql (U) Negative < 200 ng/mL [facility] Urine cocaine levelOrdered B y: Rory Sims on 04-17-2025 Cocaine Ql (U) Negative < 300 ng/mL [facility] Urine kxzzm-1-sgzogkdbkzppad abinol (THC) measurementOrdered By: Rory Bethany on 04-17-2025 Cannabinoids Screen Ql (U) Negative < 50 ng/mL [facility] Urine phencyclidine (PCP) de tectionOrdered By: Rory Sims on 04-17-2025 Phencyclidine Ql (U) Negative < 25 ng/mL [facility] CBC W/Diff, Automatedon - Absolute Lymph 2.12 X10 3/uL Normal 0.83-4.51 [facility] Comment on above: Performed By: #### L 506.1000, L500.4050, L500.4100, L400.0001, L501.9520, L502.0250, L100.0100, L503.0105 #### [facility] [address] [place], [place], [id number] Absolute Neut 7.3 X10 3/uL Normal 2.0-7.7 [facility] Comment on above: Performed By: #### L 506.1000, L500.4050, L500.4100, L400.0001, L501.9520, L502.0250, L100.0100, L503.0105 #### [facility] [address] [place], [address] Basophils/100 WBC (Bld) 0.8 % Normal 0-1 [facility] Comment on above: Performed By: #### L 506.1000, L500.4050, L500.4100, L400.0001, L501.9520, L502.0250, L100.0100, L503.0105 #### [facility] [address] [place], [address] Eosinophils/100 WBC (Bld) 1.6 % Normal 0-5 [facility] Comment on above: Performed By: #### L 506.1000, L500.4050, L500.4100, L400.0001, L501.9520, L502.0250, L100.0100, L503.0105 #### [facility] [address] [place], [address] Erythrocyte distribution width (RBC) [Ratio] 12.8 % Normal 11.6-14.6 [facility] Comment on above: Performed By: #### L 506.1000, L500.4050, L500.4100, L400.0001, L501.9520, L502.0250, L100.0100, L503.0105 #### [facility] [address] [place], [address] Hematocrit (Bld) [Volume fraction] 41.1 % Normal 40-54 [facility] Comment on above: Performed By: #### L 506.1000, L500.4050, L500.4100, L400.0001, L501.9520, L502.0250, L100.0100, L503.0105 #### [facility] [address] [place], [address] Hemoglobin (Bld) [Mass/Vol] 13.4 g/dL Normal 13.0-16.5 [facility] Comment on above: Performed By: #### L 506.1000, L500.4050, L500.4100, L400.0001, L501.9520, L502.0250, L100.0100, L503.0105 #### [facility] [address] [place], [address] IG% 0.600 Normal 0.0-0.9 [facility] Comment on above: Result Comment: IG% - Immature Granulocytes (promyelocytes, myelocytes and metamyelocytes) > 1% indicates that a LEFT SHIFT is Present. Performed By: #### L 506.1000, L500.4050, L500.4100, L400.0001, L501.9520, L502.0250, L100.0100, L503.0105 #### [facility] [address] [place], [address] Lymphocytes/100 WBC (Bld) 20.4 % Normal 19-41 [facility] Comment on above: Performed By: #### L 506.1000, L500.4050, L500.4100, L400.0001, L501.9520, L502.0250, L100.0100, L503.0105 #### [facility] [address] [facility] [place], [address] MCH (RBC) [Entitic mass] 28.9 pg Normal 27.0-32.0 [facility] Comment on above: Performed By: #### L 506.1000, L500.4050, L500.4100, L400.0001, L501.9520, L502.0250, L100.0100, L503.0105 #### [facility] [address] [place], [address] MCHC (RBC) [Mass/Vol] 32.6 g/dL Normal 32-36 [facility] Comment on above: Performed By: #### L 506.1000, L500.4050, L500.4100, L400.0001, L501.9520, L502.0250, L100.0100, L503.0105 #### [facility] [address] [place], [address] MCV (RBC) [Entitic vol] 88.8 fL Normal 80-94 [facility] Comment on above: Performed By: #### L 506.1000, L500.4050, L500.4100, L400.0001, L501.9520, L502.0250, L100.0100, L503.0105 #### [facility] [address] [place], [address] Monocytes/100 WBC (Bld) 6.8 % Normal 0-10 [facility] Comment on above: Performed By: #### L 506.1000, L500.4050, L500.4100, L400.0001, L501.9520, L502.0250, L100.0100, L503.0105 #### [facility] [address] [place], [address] Neutrophils/100 WBC (Bld) 69.8 % Normal 47-70 [facility] Comment on above: Performed By: #### L 506.1000, L500.4050, L500.4100, L400.0001, L501.9520, L502.0250, L100.0100, L503.0105 #### [facility] [address] [place], [address] Nucleated RBC (Bld) [#/Vol] 0 10*3/uL Normal 0-5 [facility] Comment on above: Performed By: #### L 506.1000, L500.4050, L500.4100, L400.0001, L501.9520, L502.0250, L100.0100, L503.0105 #### [facility] [address] [place], [address] Platelet mean volume (Bld) [Entitic vol] 9.2 fL Normal 6.2-12.0 [facility] Comment on above: Performed By: #### L 506.1000, L500.4050, L500.4100, L400.0001, L501.9520, L502.0250, L100.0100, L503.0105 #### [facility] [address] [place], [address] Platelets (Bld) [#/Vol] 368 10*3/uL Normal 150-450 [facility] Comment on above: Performed By: #### L 506.1000, L500.4050, L500.4100, L400.0001, L501.9520, L502.0250, L100.0100, L503.0105 #### [facility] [address] [place], [address] RBC (Bld) [#/Vol] 4.63 10*6/uL Normal 4.6-6.2 [facility] Comment on above: Performed By: #### L 506.1000, L500.4050, L500.4100, L400.0001, L501.9520, L502.0250, L100.0100, L503.0105 #### [facility] [address] [place], [address] RDW SD 41.6 fl Normal 35.1-43.9 [facility] Comment on above: Performed By: #### L 506.1000, L500.4050, L500.4100, L400.0001, L501.9520, L502.0250, L100.0100, L503.0105 #### [facility] [address] [place], [address] WBC (Bld) [#/Vol] 10.4 10*3/uL Normal 4.4-11.0 [facility] Comment on above: Performed By: #### L 506.1000, L500.4050, L500.4100, L400.0001, L501.9520, L502.0250, L100.0100, L503.0105 #### [facility] [address] [place], [address] Comprehensive Metabolic Prof [facility] 12-21-2024 Albumin [Mass/Vol] 3.7 g/dL Normal 3.2-5.0 [facility] Comment on above: Performed By: #### L 505.5000, L3410.9992 #### [facility] [address] [place], [address] Albumin/Globulin [Mass ratio] 0.9 {ratio} Normal 0.9-2.4 [facility] Comment on above: Performed By: #### L 505.5000, L3410.9992 #### [facility] [address] [place], [address] ALK P 70 U/L Normal 45-117 [facility] Comment on above: Performed By: #### L 505.5000, L3410.9992 #### [facility] [address] [place], [address] ALT [Catalytic activity/Vol] 34 U/L Normal 16-61 [facility] Comment on above: Performed By: #### L 505.5000, L3410.9992 #### [facility] [address] [place], [address] AST [Catalytic activity/Vol] 12 U/L Low 15-37 [facility] Comment on above: Performed By: #### L 505.5000, L3410.9992 #### [facility] [address] [place], [address] Bilirubin [Mass/Vol] 0.50 mg/dL Normal 0.20-1.00 [facility] Comment on above: Result Comment: For patients on eltrombopag therapy, use of Dimension [place] TBIL is not recommended. Performed By: #### L 505.5000, L3410.9992 #### [facility] [address] [place], [address] BUN/CRE 19.0 RATIO Normal 10-20 [facility] Comment on above: Performed By: #### L 505.5000, L3410.9992 #### [facility] [address] [place], [address] CA,Total 9.8 mg/dL Normal 8.5-10.1 [facility] Comment on above: Performed By: #### L 505.5000, L3410.9992 #### [facility] [address] [place], [address] Chloride [Moles/Vol] 105 mmol/L Normal 98-107 [facility] Comment on above: Performed By: #### L 505.5000, L3410.9992 #### [facility] [address] [place], [address] CO2 [Moles/Vol] 29.0 mmol/L Normal 21.0-32.0 [facility] Comment on above: Performed By: #### L 505.5000, L3410.9992 #### [facility] [address] [place], [address] Creatinine [Mass/Vol] 0.84 mg/dL Normal 0.70-1.30 [facility] Comment on above: Result Comment: The validity of the calculated GFR GFRAA in patients over 70 years has not been determined. Clinical correlation is essential. Performed By: #### L 505.5000, L3410.9992 #### [facility] [address] [place], [address] EST GFR - AA 120 mL/min Normal >60 [facility] Comment on above: Result Comment: Afri can Uzbek GFR Calc Performed By: #### L 505.5000, L3410.9992 #### [facility] [address] [place], [address] GAP 5 Normal 5-15 [facility] Comment on above: Performed By: #### L 505.5000, L3410.9992 #### [facility] [address] [place], [address] GFR/1.73 sq M.predicted among non-blacks MDRD (S/P/Bld) [Vol rate/Area] 99 mL/min/{1.73_m2} Normal >60 [facility] Comment on above: Result Comment: Non- GFR Calc Performed By: #### L 505.5000, L3410.9992 #### [facility] [address] [place], [address] Globulin (S) [Mass/Vol] 3.9 g/dL Normal 2.2-4.2 [facility] Comment on above: Performed By: #### L 505.5000, L3410.9992 #### [facility] [address] [place], [address] Glucose [Mass/Vol] 111 mg/dL High 74-106 [facility] Comment on above: Result Comment: Fast ing Glucose result from 100 to 125 mg/dL suggests IMPAIRED HOMEOSTASIS per A.D.A. criteria. Performed By: #### L 505.5000, L3410.9992 #### [facility] [address] [place], [address] Potassium [Moles/Vol] 4.1 mmol/L Normal 3.5-5.1 [facility] Comment on above: Performed By: #### L 505.5000, L3410.9992 #### [facility] [address] [place], [address] Sodium [Moles/Vol] 139 mmol/L Normal 136-145 [facility] Comment on above: Performed By: #### L 505.5000, L3410.9992 #### [facility] [address] [place], [address] T PROT 7.6 g/dL Normal 6.4-8.2 [facility] Comment on above: Performed By: #### L 505.5000, L3410.9992 #### [facility] [address] [place], [address] Urea nitrogen [Mass/Vol] 16 mg/dL Normal 7-18 [facility] Comment on above: Performed By: #### L 505.5000, L3410.9992 #### [facility] [address] [place], [address] Lipid Profileon 12-21-2024 Cholesterol [Mass/Vol] 145 mg/dL Normal 200 [facility] Comment on above: Result Comment: <200 mg/dL Desirable 200-240 mg/dL Borderline >240 mg/dL High Risk Performed By: #### L 505.5000, L3410.9992 #### [facility] [address] [place], [address] Cholesterol in HDL [Mass/Vol] 50 mg/dL Normal [facility] Comment on above: Result Comment: The drugs N-Acetylcysteine and Metamizole may falsely depress this assay. Reference Range HDL <40 mg/dL Low HDL Cholesterol HDL >or= 60 mg/dL High HDL Cholesterol Performed By: #### L 505.5000, L3410.9992 #### [facility] [address] [place], [address] Cholesterol in LDL [Mass/Vol] 81 mg/dL Normal 0-130 [facility] Comment on above: Performed By: #### L 505.5000, L3410.9992 #### [facility] [address] [place], [address] Cholesterol in VLDL [Mass/Vol] 14 mg/dL Normal 5-40 [facility] Comment on above: Performed By: #### L 505.5000, L3410.9992 #### [facility] [address] [place], [address] Triglyceride [Mass/Vol] 69 mg/dL Normal [facility] Comment on above: Result Comment: The drugs N-Acetylcysteine and Metamizole may falsely depress this assay. Serum Triglycerides Reference Interval Normal <150 mg/dL Borderline high 150 - 199 mg/dL High 200 - 499 mg/dL Very High > or = 500 mg/dL Performed By: #### L 505.5000, L3410.9992 #### [facility] [address] [place], [address] Microalb:Creat Ratio,Random URon 12-21-2024 Creatinine [Mass/Vol] 108.00 mg/dL Normal NO RAN GE EST. [facility] Comment on above: Performed By: #### L 505.5000, L3410.9992 #### [facility] [address] [place], [address] MALB:CRE 13.0 mg/g CRE Normal <30 mg/g CRE [facility] Comment on above: Performed By: #### L 505.5000, L3410.9992 #### [facility] [address] [place], [address] MICROALBUMIN,UR 14.0 mg/L Normal NO RANGE EST. [facility] Comment on above: Performed By: #### L 505.5000, L3410.9992 #### [facility] [address] [place], [address] Thyroid Stim Hormone (TSH)on 12-21-2024 TSH 2.010 uIU/mL Normal 0.358-3.740 [facility] Comment on above: Performed By: #### L 505.5000, L3410.9992 #### [facility] [address] [place], [address] Urinalysis, Completeon 12-21 RBC 0-5 SEEN Normal 0-5 [facility] Comment on above: Order Comment: 11268 0 TAPENTADOL URINE Performed By: #### L 505.5000, L3410.9992 #### [facility] [address] [place], [address] BACTERIA 0 SEEN Normal None Seen [facility] Comment on above: Order Comment: [id number] 0 TAPENTADOL URINE Performed By: #### L 505.5000, L3410.9992 #### [facility] [address] [place], [address] EPI,SQUAMOUS 0 SEEN Normal 0-5 [facility] Comment on above: Order Comment: 10146 0 TAPENTADOL URINE Performed By: #### L 505.5000, L3410.9992 #### [facility] [address] [place], [address] Mucus Ql (Urine sed) 0 SEEN Normal [facility] Comment on above: Order Comment: [id number] 0 TAPENTADOL URINE Performed By: #### L 505.5000, L3410.9992 #### [facility] [address] [place], [address] WBC 0 SEEN Normal 0-5 [facility] Comment on above: Order Comment: 34153 0 TAPENTADOL URINE Performed By: #### L 505.5000, L3410.9992 #### [facility] [address] [place], [address] Vitamin B12on 12-21-2024 Cobalamin (Vitamin B12) [Mass/Vol] 405 pg/mL Normal 211-911 [facility] Comment on above: Performed By: #### L 505.5000, L3410.9992 #### [facility] [address] [place], [address] Vitamin D,25 Hydroxyon 12-21 Vitamin D 25-OH 65.4 ng/mL Normal [facility] Comment on above: Result Comment: Juliann min D 25(OH) Status Range Deficiency <20 ng/mL (50nmol/L) Insufficiency 20 - 30 ng/mL (50 - 75 nmol/L) Sufficiency 30 - 100 ng/mL (75 - 250 nmol/L) Toxicity >100 ng/mL (>250 nmol/L) Performed By: #### L 505.5000, L3410.9992 #### [facility] [address] [place], [address] [facility] Telephone (CHRISTIE) CONG HARRISON ([id number]) 1965 M Date Time Provider Department 08/23/24 ESTELA DAY During your visit today, we recorded the following information about you: Tova Juarez LPN 08/23/2024 9:30 AM Signed Stated I already had my appt with Dr Negron, so I am cx the FU for next week at . Confirmed that we will do that. Allergies As of Date: 08/23/2024 Noted Allergy Reaction ADHESIVE TAPE (ROSINS) 11/17/2007 Date Reviewed: 05/25/2024 Reviewed by: Estela Day, MONSTER - Fully Assessed Reason for Visit: Appointment [186] Cmt: Cx Prescriptions as of 08/23/2024 - MOVANTIK 25 mg tablet Take 1 tablet by mouth once daily as needed. - DULoxetine (CYMBALTA) 60 mg capsule Take 1 capsule by mouth two times a day. - omeprazole (PRILOSEC) 40 mg capsule Take 1 capsule by mouth two times a day. - tapentadol (NUCYNTA) 100 mg tab Take 1 tablet by mouth every 6 hours as needed for up to 30 days. - benzonatate (TESSALON PERLES) 100 mg capsule Take 1 capsule by mouth three times a day as needed for cough. - terazosin (HYTRIN) 1 mg capsule Take 1 capsule by mouth once daily. - Tadalafil (CIALIS) 10 mg tablet Take 1 tablet by mouth once daily as needed (intercourse). No more than one pill in 24 hours - naloxone 4 mg/actuation nasal spray (NARCAN) Use 1 spray in one nostril as needed for overdose. May repeat every 2 to 3 min in alternating nostrils until medical assistance is available - Ascorbic Acid 100 mg chew Take 1 tablet by mouth once daily. - MULTIVITAMIN ORAL Take 1 tablet by mouth once daily. - TRAZODONE HCL (TRAZODONE ORAL) Take by mouth. - eszopiclone (LUNESTA) 3 mg tab Take 3 mg by mouth at bedtime as needed. Problem List As Of Date 08/23/2024 Noted Resolved Other ocean transportation intermediary (current) drug therapy [Z79.899]07/31/2020 Reflex sympathetic dystrophy of right leg - [facility]*05/15/2022 Complex regional pain syndrome type 1 of right *05/15/2022 Osteoarthritis of right knee - [facility] [M17.11] 05/15/2022 Psychogenic pain - [facility] [F45.42] 03/09/2023 Encounter Status:Closed by TOVA JUAREZ on 08/23/24 Normal [facility] CT CARDIAC SCORING WO IV CON TRASTon 08-15-2024 CT CARDIAC SCORING WO IV CONTRAST Interpreted By: Boubacar Barrett, STUDY: CT CARDIAC SCORING WO IV CONTRAST; 08/15/2024 5:01 pm INDICATION: Signs/Symptoms:CARDIAC SCREENING HIGH RISK CAD DM 2 W/ HYPERGLYCEMIA. ,E11.65 Type 2 diabetes mellitus with hyperglycemia (Multi) COMPARISON: None. ACCESSION NUMBER(S): [id number] ORDERING CLINICIAN: AFSANEH GREEN TECHNIQUE: Using prospective ECG gating, CT scan of the coronary arteries was performed without intravenous contrast. Coronary calcium scoring was performed according to the method of Agatston. FINDINGS: The score and distribution of calcium in the coronary arteries is as follows: LM 0 LAD 0 LCx 0 RCA 0 Total 0 The visualized mid/lower ascending thoracic aorta measures 3.1 cm in diameter. The heart is normal in size. No pericardial effusion is present. No gross evidence of mediastinal or hilar lymphadenopathy or masses is identified. The visualized segments of the lungs are normally expanded. The visualized subdiaphragmatic structures appear intact. IMPRESSION: 1. Coronary artery calcium score of 0*. *Coronary artery calcium scoring may be helpful in predicting the risk for future coronary heart disease events. According to the [employer] Clinical Expert Consensus Task Force, such testing provides important prognostic information in patients with more than one coronary heart disease risk factor. The coronary artery calcium score correlates with the annual risk of a non-fatal myocardial infarction or coronary heart disease . Coronary artery score Annual Risk 0-99 0.4% 100-399 1.3% >400 2.4% These three breakpoints correspond to lower, intermediate and high risk states for future coronary events. Such information should be used, along with appropriate clinical judgment, to make decisions regarding the intensity of risk factor management strategies to treat blood lipids and to modify other non-lipid coronary risk factors. Reference: Ángela P et al. Circulation. 2007; 115:402-426 MACRO: None Signed by: Boubacar Barrett 08/20/2024 1:54 PM Dictation workstation: [id number] [facility] CNPNon 07-20-2024 CNPN Telephone (CHRISTIE) CONG HARRISON ([id number]) 1965 M Date Time Provider Department 07/20/24 ESTELA DAY During your visit today, we recorded the following information about you: Tova Juarez LPN 07/20/2024 2:30 PM Signed Spoke with pt re: need for new Pain Management Dr that will provide POR status and stated he would like to go to Dr. Roblero - Pain Management [facility]. Referral created and sent to [facility] ([facility]) team. Allergies As of Date: 07/20/2024 Noted Allergy Reaction ADHESIVE TAPE (ROSINS) 11/17/2007 Date Reviewed: 05/25/2024 Reviewed by: Estela Day PA-C - Fully Assessed Reason for Visit: New POR referral [Other] Prescriptions as of 07/20/2024 - MOVANTIK 25 mg tablet Take 1 tablet by mouth once daily as needed. - DULoxetine (CYMBALTA) 60 mg capsule Take 1 capsule by mouth two times a day. - omeprazole (PRILOSEC) 40 mg capsule Take 1 capsule by mouth two times a day. - tapentadol (NUCYNTA) 100 mg tab Take 1 tablet by mouth every 6 hours as needed for up to 30 days. - benzonatate (TESSALON PERLES) 100 mg capsule Take 1 capsule by mouth three times a day as needed for cough. - terazosin (HYTRIN) 1 mg capsule Take 1 capsule by mouth once daily. - Tadalafil (CIALIS) 10 mg tablet Take 1 tablet by mouth once daily as needed (intercourse). No more than one pill in 24 hours - naloxone 4 mg/actuation nasal spray (NARCAN) Use 1 spray in one nostril as needed for overdose. May repeat every 2 to 3 min in alternating nostrils until medical assistance is available - Ascorbic Acid 100 mg chew Take 1 tablet by mouth once daily. - MULTIVITAMIN ORAL Take 1 tablet by mouth once daily. - TRAZODONE HCL (TRAZODONE ORAL) Take by mouth. - eszopiclone (LUNESTA) 3 mg tab Take 3 mg by mouth at bedtime as needed. Problem List As Of Date 07/20/2024 Noted Resolved Other ocean transportation intermediary (current) drug therapy [Z79.899]07/31/2020 Reflex sympathetic dystrophy of right leg - [facility]*05/15/2022 Complex regional pain syndrome type 1 of right *05/15/2022 Osteoarthritis of right knee - [facility] [M17.11] 05/15/2022 Psychogenic pain - [facility] [F45.42] 03/09/2023 Encounter Status:Closed by TOVA JUAREZ on 07/20/24 [facility] 06-28-2024 GARTH Telephone (CHRISTIE) CONG HARRISON ([id number]) 1965 M Date Time Provider Department 06/28/24 ESTELA DAY During your visit today, we recorded the following information about you: Tova Juarez LPN 06/28/2024 10:41 AM Signed Renewal PA for cynthiaantik submitted on CMM to [facility] . Tova Juarez LPN 06/28/2024 3:30 PM Signed Movantik approved, pt and pharmacy were informed. Allergies As of Date: 06/28/2024 Noted Allergy Reaction ADHESIVE TAPE (ROSINS) 11/17/2007 Date Reviewed: 05/25/2024 Reviewed by: Estela Day PA-C - Fully Assessed Reason for Visit: Kendrick PEPE [Other] Prescriptions as of 06/28/2024 - MOVANTIK 25 mg tablet Take 1 tablet by mouth once daily as needed. - DULoxetine (CYMBALTA) 60 mg capsule Take 1 capsule by mouth two times a day. - omeprazole (PRILOSEC) 40 mg capsule Take 1 capsule by mouth two times a day. - tapentadol (NUCYNTA) 100 mg tab Take 1 tablet by mouth every 6 hours as needed for up to 30 days. - benzonatate (TESSALON PERLES) 100 mg capsule Take 1 capsule by mouth three times a day as needed for cough. - terazosin (HYTRIN) 1 mg capsule Take 1 capsule by mouth once daily. - Tadalafil (CIALIS) 10 mg tablet Take 1 tablet by mouth once daily as needed (intercourse). No more than one pill in 24 hours - naloxone 4 mg/actuation nasal spray (NARCAN) Use 1 spray in one nostril as needed for overdose. May repeat every 2 to 3 min in alternating nostrils until medical assistance is available - Ascorbic Acid 100 mg chew Take 1 tablet by mouth once daily. - MULTIVITAMIN ORAL Take 1 tablet by mouth once daily. - TRAZODONE HCL (TRAZODONE ORAL) Take by mouth. - eszopiclone (LUNESTA) 3 mg tab Take 3 mg by mouth at bedtime as needed. Problem List As Of Date 06/28/2024 Noted Resolved Other snf (current) drug therapy [Z79.899]07/31/2020 Reflex sympathetic dystrophy of right leg - [facility]*05/15/2022 Complex regional pain syndrome type 1 of right *05/15/2022 Osteoarthritis of right knee - [facility] [M17.11] 05/15/2022 Psychogenic pain - [facility] [F45.42] 03/09/2023 Encounter Status:Closed by TOVA JUAREZ on 06/28/24 [facility] 06-25-2024 GARTH Telephone (PAIMER) CONG HARRISON ([id number]) 1965 M Date Time Provider Department 06/25/24 RORY SCHULTZ During your visit today, we recorded the following information about you: Fred Jean RN 06/25/2024 11:13 AM Signed LM on regarding form being mailed out to change POR with [facility]. Fred Jean RN June 25, 2024 11:13 AM Allergies As of Date: 06/25/2024 Noted Allergy Reaction ADHESIVE TAPE (ROSINS) 11/17/2007 Date Reviewed: 05/25/2024 Reviewed by: Estela Day PA-C - Fully Assessed Reason for Visit: Change in POR for [facility] [Other] Prescriptions as of 06/25/2024 - tapentadol (NUCYNTA) 100 mg tab Take 1 tablet by mouth every 6 hours as needed for up to 30 days. - benzonatate (TESSALON PERLES) 100 mg capsule Take 1 capsule by mouth three times a day as needed for cough. - DULoxetine (CYMBALTA) 60 mg capsule Take 1 capsule by mouth two times a day. - omeprazole (PRILOSEC) 40 mg capsule Take 1 capsule by mouth two times a day. - MOVANTIK 25 mg tablet Take 1 tablet by mouth once daily as needed. - terazosin (HYTRIN) 1 mg capsule Take 1 capsule by mouth once daily. - Tadalafil (CIALIS) 10 mg tablet Take 1 tablet by mouth once daily as needed (intercourse). No more than one pill in 24 hours - naloxone 4 mg/actuation nasal spray (NARCAN) Use 1 spray in one nostril as needed for overdose. May repeat every 2 to 3 min in alternating nostrils until medical assistance is available - Ascorbic Acid 100 mg chew Take 1 tablet by mouth once daily. - MULTIVITAMIN ORAL Take 1 tablet by mouth once daily. - TRAZODONE HCL (TRAZODONE ORAL) Take by mouth. - eszopiclone (LUNESTA) 3 mg tab Take 3 mg by mouth at bedtime as needed. Problem List As Of Date 06/25/2024 Noted Resolved Other ocean transportation intermediary (current) drug therapy [Z79.899]07/31/2020 Reflex sympathetic dystrophy of right leg - [facility]*05/15/2022 Complex regional pain syndrome type 1 of right *05/15/2022 Osteoarthritis of right knee - [facility] [M17.11] 05/15/2022 Psychogenic pain - [facility] [F45.42] 03/09/2023 Encounter Status:Closed by FRED JEAN on 06/25/24 Normal [facility] CBC W/Diff, Automatedon 05-31 Absolute Lymph 2.17 X10 3/uL Normal 0.83-4.51 [facility] Comment on above: Performed By: #### L 503.0105, L501.9520, L500.4100, L500.4050, L501.9985, L506.1000, L100.0100 #### [facility] [address] [place], [address] Absolute Neut 7.4 X10 3/uL Normal 2.0-7.7 [facility] Comment on above: Performed By: #### L 503.0105, L501.9520, L500.4100, L500.4050, L501.9985, L506.1000, L100.0100 #### [facility] [address] [place], [address] Basophils/100 WBC (Bld) 0.7 % Normal 0-1 [facility] Comment on above: Performed By: #### L 503.0105, L501.9520, L500.4100, L500.4050, L501.9985, L506.1000, L100.0100 #### [facility] [address] [place], [address] Eosinophils/100 WBC (Bld) 0.9 % Normal 0-5 [facility] Comment on above: Performed By: #### L 503.0105, L501.9520, L500.4100, L500.4050, L501.9985, L506.1000, L100.0100 #### [facility] [address] [place], [address] Erythrocyte distribution width (RBC) [Ratio] 12.8 % Normal 11.6-14.6 [facility] Comment on above: Performed By: #### L 503.0105, L501.9520, L500.4100, L500.4050, L501.9985, L506.1000, L100.0100 #### [facility] [address] [place], [address] Hematocrit (Bld) [Volume fraction] 42.9 % Normal 40-54 [facility] Comment on above: Performed By: #### L 503.0105, L501.9520, L500.4100, L500.4050, L501.9985, L506.1000, L100.0100 #### [facility] [address] [place], [address] Hemoglobin (Bld) [Mass/Vol] 14.3 g/dL Normal 13.0-16.5 [facility] Comment on above: Performed By: #### L 503.0105, L501.9520, L500.4100, L500.4050, L501.9985, L506.1000, L100.0100 #### [facility] [address] [place], [address] IG% 0.400 Normal 0.0-0.9 [facility] Comment on above: Result Comment: IG% - Immature Granulocytes (promyelocytes, myelocytes and metamyelocytes) > 1% indicates that a LEFT SHIFT is Present. Performed By: #### L 503.0105, L501.9520, L500.4100, L500.4050, L501.9985, L506.1000, L100.0100 #### [facility] [address] [place], [address] Lymphocytes/100 WBC (Bld) 20.6 % Normal 19-41 [facility] Comment on above: Performed By: #### L 503.0105, L501.9520, L500.4100, L500.4050, L501.9985, L506.1000, L100.0100 #### [facility] [address] [place], [address] MCH (RBC) [Entitic mass] 29.1 pg Normal 27.0-32.0 [facility] Comment on above: Performed By: #### L 503.0105, L501.9520, L500.4100, L500.4050, L501.9985, L506.1000, L100.0100 #### [facility] [address] [place], [address] MCHC (RBC) [Mass/Vol] 33.3 g/dL Normal 32-36 [facility] Comment on above: Performed By: #### L 503.0105, L501.9520, L500.4100, L500.4050, L501.9985, L506.1000, L100.0100 #### [facility] [address] [place], [address] MCV (RBC) [Entitic vol] 87.4 fL Normal 80-94 [facility] Comment on above: Performed By: #### L 503.0105, L501.9520, L500.4100, L500.4050, L501.9985, L506.1000, L100.0100 #### [facility] [address] [place], [address] Monocytes/100 WBC (Bld) 6.8 % Normal 0-10 [facility] Comment on above: Performed By: #### L 503.0105, L501.9520, L500.4100, L500.4050, L501.9985, L506.1000, L100.0100 #### [facility] [address] [place], [address] Neutrophils/100 WBC (Bld) 70.6 % High 47-70 [facility] Comment on above: Performed By: #### L 503.0105, L501.9520, L500.4100, L500.4050, L501.9985, L506.1000, L100.0100 #### [facility] [address] [place], [address] Nucleated RBC (Bld) [#/Vol] 0 10*3/uL Normal 0-5 [facility] Comment on above: Performed By: #### L 503.0105, L501.9520, L500.4100, L500.4050, L501.9985, L506.1000, L100.0100 #### [facility] [address] [place], [address] Platelet mean volume (Bld) [Entitic vol] 9.6 fL Normal 6.2-12.0 [facility] Comment on above: Performed By: #### L 503.0105, L501.9520, L500.4100, L500.4050, L501.9985, L506.1000, L100.0100 #### [facility] [address] [place], [address] Platelets (Bld) [#/Vol] 378 10*3/uL Normal 150-450 [facility] Comment on above: Performed By: #### L 503.0105, L501.9520, L500.4100, L500.4050, L501.9985, L506.1000, L100.0100 #### [facility] [address] [place], [address] RBC (Bld) [#/Vol] 4.91 10*6/uL Normal 4.6-6.2 [facility] Comment on above: Performed By: #### L 503.0105, L501.9520, L500.4100, L500.4050, L501.9985, L506.1000, L100.0100 #### [facility] [address] [place], [address] RDW SD 40.5 fl Normal 35.1-43.9 [facility] Comment on above: Performed By: #### L 503.0105, L501.9520, L500.4100, L500.4050, L501.9985, L506.1000, L100.0100 #### [facility] [address] [place], [address] WBC (Bld) [#/Vol] 10.5 10*3/uL Normal 4.4-11.0 [facility] Comment on above: Performed By: #### L 503.0105, L501.9520, L500.4100, L500.4050, L501.9985, L506.1000, L100.0100 #### [facility] [address] [place], [address] Comprehensive Metabolic Prof [facility] 06-15-2024 Albumin [Mass/Vol] 3.5 g/dL Normal 3.2-5.0 [facility] Comment on above: Performed By: #### L 503.0105, L501.9520, L500.4100, L500.4050, L501.9985, L506.1000, L100.0100 #### [facility] [address] [place], [address] Albumin/Globulin [Mass ratio] 0.9 {ratio} Normal 0.9-2.4 [facility] Comment on above: Performed By: #### L 503.0105, L501.9520, L500.4100, L500.4050, L501.9985, L506.1000, L100.0100 #### [facility] [address] [place], [address] ALK P 117 U/L Normal 45-117 [facility] Comment on above: Performed By: #### L 503.0105, L501.9520, L500.4100, L500.4050, L501.9985, L506.1000, L100.0100 #### [facility] [address] [place], [address] ALT [Catalytic activity/Vol] 28 U/L Normal 16-61 [facility] Comment on above: Performed By: #### L 503.0105, L501.9520, L500.4100, L500.4050, L501.9985, L506.1000, L100.0100 #### [facility] [address] [place], [address] AST [Catalytic activity/Vol] 14 U/L Low 15-37 [facility] Comment on above: Performed By: #### L 503.0105, L501.9520, L500.4100, L500.4050, L501.9985, L506.1000, L100.0100 #### [facility] [address] [place], [address] Bilirubin [Mass/Vol] 0.60 mg/dL Normal 0.20-1.00 [facility] Comment on above: Result Comment: For patients on eltrombopag therapy, use of Dimension [place] TBIL is not recommended. Performed By: #### L 503.0105, L501.9520, L500.4100, L500.4050, L501.9985, L506.1000, L100.0100 #### [facility] [address] [place], [address] BUN/CRE 14.8 RATIO Normal 10-20 [facility] Comment on above: Performed By: #### L 503.0105, L501.9520, L500.4100, L500.4050, L501.9985, L506.1000, L100.0100 #### [facility] [address] [place], [address] CA,Total 8.8 mg/dL Normal 8.5-10.1 [facility] Comment on above: Performed By: #### L 503.0105, L501.9520, L500.4100, L500.4050, L501.9985, L506.1000, L100.0100 #### [facility] [address] [place], [address] Chloride [Moles/Vol] 101 mmol/L Normal 98-107 [facility] Comment on above: Performed By: #### L 503.0105, L501.9520, L500.4100, L500.4050, L501.9985, L506.1000, L100.0100 #### [facility] [address] [place], [address] CO2 [Moles/Vol] 28.0 mmol/L Normal 21.0-32.0 [facility] Comment on above: Performed By: #### L 503.0105, L501.9520, L500.4100, L500.4050, L501.9985, L506.1000, L100.0100 #### [facility] [address] [place], [address] Creatinine [Mass/Vol] 0.88 mg/dL Normal 0.70-1.30 [facility] Comment on above: Result Comment: The validity of the calculated GFR GFRAA in patients over 70 years has not been determined. Clinical correlation is essential. Performed By: #### L 503.0105, L501.9520, L500.4100, L500.4050, L501.9985, L506.1000, L100.0100 #### [facility] [address] [place], [address] EST GFR - AA 114 mL/min Normal >60 [facility] Comment on above: Result Comment: Afri can [employer] GFR Calc Performed By: #### L 503.0105, L501.9520, L500.4100, L500.4050, L501.9985, L506.1000, L100.0100 #### [facility] [address] [place], [address] GAP 6 Normal 5-15 [facility] Comment on above: Performed By: #### L 503.0105, L501.9520, L500.4100, L500.4050, L501.9985, L506.1000, L100.0100 #### [facility] [address] [place], [address] GFR/1.73 sq M.predicted among non-blacks MDRD (S/P/Bld) [Vol rate/Area] 95 mL/min/{1.73_m2} Normal >60 [facility] Comment on above: Result Comment: Non- GFR Calc Performed By: #### L 503.0105, L501.9520, L500.4100, L500.4050, L501.9985, L506.1000, L100.0100 #### [facility] [address] [place], [address] Globulin (S) [Mass/Vol] 3.8 g/dL Normal 2.2-4.2 [facility] Comment on above: Performed By: #### L 503.0105, L501.9520, L500.4100, L500.4050, L501.9985, L506.1000, L100.0100 #### [facility] [address] [place], [address] Glucose [Mass/Vol] 286 mg/dL High 74-106 [facility] Comment on above: Result Comment: Gluc ose result greater than or equal to 200 mg/dL suggests DIABETES MELLITUS per A.D.A. criteria. Performed By: #### L 503.0105, L501.9520, L500.4100, L500.4050, L501.9985, L506.1000, L100.0100 #### [facility] [address] [place], [address] Potassium [Moles/Vol] 4.1 mmol/L Normal 3.5-5.1 [facility] Comment on above: Performed By: #### L 503.0105, L501.9520, L500.4100, L500.4050, L501.9985, L506.1000, L100.0100 #### [facility] [address] [place], [address] Sodium [Moles/Vol] 135 mmol/L Low 136-145 [facility] Comment on above: Performed By: #### L 503.0105, L501.9520, L500.4100, L500.4050, L501.9985, L506.1000, L100.0100 #### [facility] [address] [place], [address] T PROT 7.3 g/dL Normal 6.4-8.2 [facility] Comment on above: Performed By: #### L 503.0105, L501.9520, L500.4100, L500.4050, L501.9985, L506.1000, L100.0100 #### [facility] [address] [place], [address] Urea nitrogen [Mass/Vol] 13 mg/dL Normal 7-18 [facility] Comment on above: Performed By: #### L 503.0105, L501.9520, L500.4100, L500.4050, L501.9985, L506.1000, L100.0100 #### [facility] [address] [place], [address] Hemoglobin A1con 06-15-2024 HbA1c (Bld) [Mass fraction] 10.5 % High 3.8-5.6 [facility] Comment on above: Result Comment: Norm al < 5.7 % Prediabetic 5.7 - 6.4 % Diabetic >or= 6.5 % Please note range changes. Performed By: #### L 503.0105, L501.9520, L500.4100, L500.4050, L501.9985, L506.1000, L100.0100 #### [facility] [address] [place], [address] Lipid Profileon 06-15-2024 Cholesterol [Mass/Vol] 134 mg/dL Normal 200 [facility] Comment on above: Result Comment: <200 mg/dL Desirable 200-240 mg/dL Borderline >240 mg/dL High Risk Performed By: #### L 503.0105, L501.9520, L500.4100, L500.4050, L501.9985, L506.1000, L100.0100 #### [facility] [address] [place], [address] Cholesterol in HDL [Mass/Vol] 44 mg/dL Normal [facility] Comment on above: Result Comment: The drugs N-Acetylcysteine and Metamizole may falsely depress this assay. Reference Range HDL <40 mg/dL Low HDL Cholesterol HDL >or= 60 mg/dL High HDL Cholesterol Performed By: #### L 503.0105, L501.9520, L500.4100, L500.4050, L501.9985, L506.1000, L100.0100 #### [facility] [address] [place], [address] Cholesterol in LDL [Mass/Vol] 77 mg/dL Normal 0-130 [facility] Comment on above: Performed By: #### L 503.0105, L501.9520, L500.4100, L500.4050, L501.9985, L506.1000, L100.0100 #### [facility] [address] [place], [address] Cholesterol in VLDL [Mass/Vol] 13 mg/dL Normal 5-40 [facility] Comment on above: Performed By: #### L 503.0105, L501.9520, L500.4100, L500.4050, L501.9985, L506.1000, L100.0100 #### [facility] [address] [place], [address] Triglyceride [Mass/Vol] 65 mg/dL Normal [facility] Comment on above: Result Comment: The drugs N-Acetylcysteine and Metamizole may falsely depress this assay. Serum Triglycerides Reference Interval Normal <150 mg/dL Borderline high 150 - 199 mg/dL High 200 - 499 mg/dL Very High > or = 500 mg/dL Performed By: #### L 503.0105, L501.9520, L500.4100, L500.4050, L501.9985, L506.1000, L100.0100 #### [facility] [address] [place], [place], [id number] (263) Thyroid Stim Hormone (TSH)on 06-15-2024 TSH 1.610 uIU/mL Normal 0.358-3.740 [facility] Comment on above: Performed By: #### L 503.0105, L501.9520, L500.4100, L500.4050, L501.9985, L506.1000, L100.0100 #### [facility] [address] [place], [address] Vitamin B12on 06-15-2024 Cobalamin (Vitamin B12) [Mass/Vol] 1740 pg/mL High 211-911 [facility] Comment on above: Performed By: #### L 503.0105, L501.9520, L500.4100, L500.4050, L501.9985, L506.1000, L100.0100 #### [facility] [address] [place], [address] Vitamin D,25 Hydroxyon 06-15 Vitamin D 25-OH 37.4 ng/mL Normal [facility] Comment on above: Result Comment: Juliann min D 25(OH) Status Range Deficiency <20 ng/mL (50nmol/L) Insufficiency 20 - 30 ng/mL (50 - 75 nmol/L) Sufficiency 30 - 100 ng/mL (75 - 250 nmol/L) Toxicity >100 ng/mL (>250 nmol/L) Performed By: #### L 503.0105, L501.9520, L500.4100, L500.4050, L501.9985, L506.1000, L100.0100 #### [facility] [address] [place], [address] CNOVon 05-25-2024 CNOV Office Visit (CHRISTIE ) CONG HARRISON ([id number]) 1965 M Date Time Provider Department 05/25/24 8:00 AM ESTELA DAY During your visit today, we recorded the following information about you: Pulse Respiration Blood pressure Weight 101/minute 18/minute 123/70 88 kg Brenden Tena RN 05/25/2024 8:11 AM Signed Nucynta this am/ Cymbalta this am/ Prilosec this am/ Hytrin last pm/ Movantik am Meds help pain Denies side effects SCS, 23/05-helpful Last uds-04/04/24 Estela Day PA-C 05/25/2024 8:26 AM Signed This note was created using NoteWriter. Subjective Cong Harrison is a 59 year old male. The patient primarily being seen for left leg pain - [facility] Patient was last seen on: 04/04/24 At that time, the treatment plan was: see notes Current Meds: nucynta - am, duloxetine - am, prilosec - am, hytrin - pm, movantik - am Efficacy: help Side effects: constipation TENS unit: SCS How often used: 23/05 Benefit: helps Physical Therapy: years ago Last UDS: 04/04/24 Last injection: OARRS reviewed At the present time, the patient reports benefit with his present analgesic therapy. He uses movantik for his constipation. Since his previous visit, he denies any hospitalizations or ER visits. He states that the spinal cord stimulator helps and covers his areas of pain. The last couple weeks his pain has been elevated. Next week he is having his prosthesis checked to make sure it is still fitting correctly. 05/02/2024 05/25/2024 INTAKE PAIN ASSESSMENT Are you having pain associated with your visit today? No Yes, Provider notified Pain Scales Verbal (Numeric Rating or Visual Analog Scale) Pain Level 10 Pain Location Leg-Left Description Burning;Aching;Stabbing Frequency Continuous Intervention/Comfort measure Medication;Relaxation;S wm Cord Stimulator Leg Pain Pertinent negatives include no fever. PAST MEDICAL HISTORY Diagnosis Date Amputated left leg (HCC) 2003 GERD (gastroesophageal reflux disease) PAST SURGICAL HISTORY Procedure Laterality Date ARTHROPLASTY HEMIARTHROPLASTY total knee ORTHOPEDICS SURGERY HX N/A 20 srg on left leg PRQ IMPLTJ NSTIM ELECTRODE ARRAY EPIDURAL SCS WRIST SURGERY HX right Social History Tobacco Use Smoking status: Never Smokeless tobacco: Never Substance Use Topics Alcohol use: Not Currently Drug use: Never Review of Systems Constitutional: Negative for fever and unexpected weight change. Gastrointestinal: Positive for constipation. Musculoskeletal: + back pain, joint pain/swelling, numbness, tingling, muscle cramps/weakness, stiffness, arthritis, sciatica, restless legs, leg pain at night and leg pain with exertion. Objective BP 123/70 (BP Site: Left Arm, BP Position: Sitting, BP Cuff Size: Regular Adult) Pulse 101 Resp 18 Wt 88 kg (194 lb) SpO2 99% BMI 30.38 kg/m? Physical Exam Vitals and nursing note reviewed. Constitutional: Appearance: Normal appearance. He is well-developed and well-groomed. He is obese. HENT: Head: Normocephalic and atraumatic. Right Ear: Decreased hearing noted. Left Ear: Decreased hearing noted. Ears: Comments: Wearing hearing aids. Eyes: Conjunctiva/sclera: Conjunctivae normal. Comments: Wearing glasses Musculoskeletal: Comments: He walks with a limp but is not using any assistive devices. The patient has tenderness to palpation in the thoracic and lumbar region with spasms noted in the paraspinal muscles. There is allodynia and hyperpathia noted in the BLE, right > left. Strength is 5/5 throughout. SLR is negative. He has tenderness to palpation in his right knee with crepitus noted. There is decreased hair growth and a reddish discoloration noted in the distal RLE. He has a prosthetic device noted in the distal LLE. There is allodynia noted in the left hand. Neurological: Mental Status: He is alert and oriented to person, place, and time. Psychiatric: Attention and Perception: Attention and perception normal. Mood and Affect: Mood and affect normal. Speech: Speech normal. Behavior: Behavior normal. Behavior is cooperative. Thought Content: Thought content normal. Judgment: Judgment normal. Assessment and Plan ASSESSMENT/PLAN: 1. Complex regional pain syndrome type 1 of left lower extremity - [facility] - ICD9: 337.22, ICD10: G90.522 (primary diagnosis) The OARRS report has been reviewed and is consistent with the patients medical history and medication intake. The patient's most recent drug screen has been reviewed and is appropriate and consistent with current therapy. He will continue with Nucynta, duloxetine, terazosin, omeprazole, eszopiclone, Movantik, tadalafil, and MiraLAX. Patient was encouraged to increase fluid and fiber intake. He will continue using his spinal cord stimulator. Call Maggy if you need to have this reprogrammed (more content not included)... [facility] CONG HARRISON ([id number]) 1965 M Date Time Provider Department 05/02/24 5:30 PM ASHUTOSH HENNESSY [facility] During your visit today, we recorded the following information about you: Temperature Pulse Respiration Blood pressure 97.6 degrees 96/minute 18/minute 160/88 Weight 87.4 kg Ashutosh Hennessy, DAVION.ENGINEER FIRST ASSISTANT 05/02/2024 6:50 PM Signed Subjective HPI Nontoxic-appearing male presents urgent care chief complaint runny nose cough. Duration of symptoms 1 month. Associated symptoms listed above. States was seen at a [facility] placed on amoxicillin. This did not help. States cough is becoming more productive. No OTC medications. Denies any fever body aches chills productive cough chest pain shortness of breath pleuritic pain hemoptysis nausea vomiting abdominal pain change in bowel or bladder habits. Past medical history prescription medication use and allergies reviewed. .Patient presents with: Cough: Runny nose x1 mth PAST MEDICAL HISTORY Diagnosis Date Amputated left leg (HCC) 2003 GERD (gastroesophageal reflux disease) PAST SURGICAL HISTORY Procedure Laterality Date ARTHROPLASTY HEMIARTHROPLASTY total knee ORTHOPEDICS SURGERY HX N/A 20 srg on left leg PRQ IMPLTJ NSTIM ELECTRODE ARRAY EPIDURAL SCS WRIST SURGERY HX right ALLERGIES Adhesive Tape (Rosins) MEDICATIONS DULoxetine (CYMBALTA) 60 mg capsule Take 1 capsule by mouth two times a day. omeprazole (PRILOSEC) 40 mg capsule Take 1 capsule by mouth two times a day. MOVANTIK 25 mg tablet Take 1 tablet by mouth once daily as needed. terazosin (HYTRIN) 1 mg capsule Take 1 capsule by mouth once daily. naloxone 4 mg/actuation nasal spray (NARCAN) Use 1 spray in one nostril as needed for overdose. May repeat every 2 to 3 min in alternating nostrils until medical assistance is available Ascorbic Acid 100 mg chew Take 1 tablet by mouth once daily. MULTIVITAMIN ORAL Take 1 tablet by mouth once daily. TRAZODONE HCL (TRAZODONE ORAL) Take by mouth. eszopiclone (LUNESTA) 3 mg tab Take 3 mg by mouth at bedtime as needed. tapentadol (NUCYNTA) 100 mg tab Take 1 tablet by mouth every 6 hours as needed for up to 30 days. Tadalafil (CIALIS) 10 mg tablet Take 1 tablet by mouth once daily as needed (intercourse). No more than one pill in 24 hours FAMILY HISTORY Problem Relation Age of Onset Heart disease Father Hypertension Father Stroke Father Diabetes Mother Hypertension Mother Uterine Cancer Mother Social History Tobacco Use Smoking status: Never Smokeless tobacco: Never Substance Use Topics Alcohol use: Not Currently Drug use: Never BP 160/88 Pulse 96 Temp 36.4 ?C (97.6 ?F) Resp 18 Wt 87.4 kg (192 lb 10.9 oz) SpO2 98% BMI 30.18 kg/m? Review of Systems Constitutional: Negative for chills, fever and malaise/fatigue. HENT: Positive for congestion. Negative for ear discharge, ear pain, sinus pain and sore throat. Eyes: Negative for blurred vision, pain, discharge and redness. Respiratory: Positive for cough and sputum production. Negative for hemoptysis, shortness of breath, wheezing and stridor. Cardiovascular: Negative for chest pain. Gastrointestinal: Negative for abdominal pain, diarrhea, nausea and vomiting. Musculoskeletal: Negative for myalgias. Skin: Negative for itching and rash. Neurological: Negative for dizziness and headaches. Objective Physical Exam Constitutional: General: He is not in acute distress. Appearance: He is not diaphoretic. HENT: Head: Normocephalic. Jaw: No trismus, tenderness, swelling or pain on movement. Nose: Congestion present. Mouth/Throat: Mouth: Mucous membranes are moist. Pharynx: Oropharynx is clear. Uvula midline. No pharyngeal swelling, oropharyngeal exudate, posterior oropharyngeal erythema or uvula swelling. Eyes: Conjunctiva/sclera: Conjunctivae normal. Pupils: Pupils are equal, round, and reactive to light. Cardiovascular: Rate and Rhythm: Normal rate and regular rhythm. Heart sounds: Normal heart sounds. Pulmonary: Effort: Pulmonary effort is normal. No tachypnea, accessory muscle usage or respiratory distress. Breath sounds: Normal breath sounds. No stridor. No wheezing, rhonchi or rales. Abdominal: General: There is no distension. Palpations: Abdomen is soft. Tenderness: There is no abdominal tenderness. There is no guarding or rebound. Musculoskeletal: Cervical back: Normal range of motion and neck supple. No edema, erythema, rigidity or tenderness. No pain with movement. Normal range of motion. Lymphadenopathy: Cervical: No cervical adenopathy. Skin: General: Skin is warm and dry. Neurological: Mental Status: He is alert and oriented to person, place, and time. ASSESSMENT/PLAN: 1. Subacute cough - ICD9: 786.2, ICD10: R05.2 - XR CHEST 2V FRONTAL/LAT Diagnosis subacute cough. Due (more content not included)... Normal [facility] Keith 05-02-2024 [facility] ([id number]) 1965 M Date Time Provider Department 05/02/24 ASHUTOSH HENNESSY [facility] During your visit today, we recorded the following information about you: Ashutosh Hennessy APRN.CNP 05/02/2024 6:09 PM Signed Please inform patient that chest x-ray is unremarkable. Prescription sent to [facility]. Ashutosh Hennessy APRN.Joselito Lugo 05/02/2024 6:43 PM Signed Talked to patient and he verbally understands his chest xray was remarkable. Joselito Ruffin Allergies As of Date: 05/02/2024 Noted Allergy Reaction ADHESIVE TAPE (ROSINS) 11/17/2007 Date Reviewed: 05/02/2024 Reviewed by: Ashutosh Hennessy APRN.BRET - Fully Assessed Reason for Visit: Results [95] Prescriptions as of 05/02/2024 - doxycycline (VIBRA-TABS) 100 mg tablet Take 1 tablet by mouth two times a day for 7 days. - benzonatate (TESSALON PERLES) 100 mg capsule Take 1 capsule by mouth three times a day as needed for cough. - tapentadol (NUCYNTA) 100 mg tab Take 1 tablet by mouth every 6 hours as needed for up to 30 days. - DULoxetine (CYMBALTA) 60 mg capsule Take 1 capsule by mouth two times a day. - omeprazole (PRILOSEC) 40 mg capsule Take 1 capsule by mouth two times a day. - MOVANTIK 25 mg tablet Take 1 tablet by mouth once daily as needed. - terazosin (HYTRIN) 1 mg capsule Take 1 capsule by mouth once daily. - Tadalafil (CIALIS) 10 mg tablet Take 1 tablet by mouth once daily as needed (intercourse). No more than one pill in 24 hours - naloxone 4 mg/actuation nasal spray (NARCAN) Use 1 spray in one nostril as needed for overdose. May repeat every 2 to 3 min in alternating nostrils until medical assistance is available - Ascorbic Acid 100 mg chew Take 1 tablet by mouth once daily. - MULTIVITAMIN ORAL Take 1 tablet by mouth once daily. - TRAZODONE HCL (TRAZODONE ORAL) Take by mouth. - eszopiclone (LUNESTA) 3 mg tab Take 3 mg by mouth at bedtime as needed. Problem List As Of Date 05/02/2024 Noted Resolved Other snf (current) drug therapy [Z79.899]07/31/2020 Reflex sympathetic dystrophy of right leg - [facility]*05/15/2022 Complex regional pain syndrome type 1 of right *05/15/2022 Osteoarthritis of right knee - [facility] [M17.11] 05/15/2022 Psychogenic pain - [facility] [F45.42] 03/09/2023 Encounter Status:Closed by JOSELITO RUFFIN on 05/02/24 Normal [facility] XR CHEST 2V FRONTAL/LATon XR CHEST 2V FRONTAL/LAT * * *Final Report* * * DATE OF EXAM: May 02 2024 6:02PM WOX [id number] - XR CHEST 2V FRONTAL/LAT / PROCEDURE REASON: Subacute cough * * * * Physician Interpretation * * * * EXAMINATION: CHEST RADIOGRAPH (2 VIEW FRONTAL and LATERAL) CLINICAL HISTORY: Subacute cough MQ: XC2_6 EXAM DATE/TIME: 05/02/2024 6:02 PM COMPARISON: No relevant prior studies available. RESULT: Lines, tubes, and devices: None. Lungs and pleura: No consolidation. No lung mass. No pleural effusion. No pneumothorax. Cardiomediastinal silhouette: Normal cardiomediastinal silhouette. Bones and soft tissues: Neural stimulator wires overlie the lower thoracic/upper lumbar region. Multilevel degenerative change throughout the thoracic spine.. IMPRESSION: No acute radiographic abnormality. Napkin Machine Operator: HARJIT Transcribe Date/Time: May 02 2024 6:02P Dictated by : SIDNEY RUSSO MD This examination was interpreted and the report reviewed and electronically signed by: SIDNEY RUSSO MD on May 02 2024 6:03PM EST [id number] Normal [facility] XR Chest PA and Lateralon IMPRESSION: No acute radiographic abnormality. Napkin Machine Operator: HARJIT Transcribe Date/Time: May 02 2024 6:02P Dictated by : SIDNEY RUSSO MD This examination was interpreted and the report reviewed and electronically signed by: SIDNEY RUSSO MD on May 02 2024 6:03PM [facility] DIVISION OF RADIOLOGY * * *Final Report* * * DATE OF EXAM: May 02 2024 6:02PM WOX [id number] - XR CHEST 2V FRONTAL/LAT / PROCEDURE REASON: Subacute cough * * * * Physician Interpretation * * * * EXAMINATION: CHEST RADIOGRAPH (2 VIEW FRONTAL & LATERAL) CLINICAL HISTORY: Subacute cough MQ: XC2_6 EXAM DATE/TIME: 05/02/2024 6:02 PM COMPARISON: No relevant prior studies available. RESULT: Lines, tubes, and devices: None. Lungs and pleura: No consolidation. No lung mass. No pleural effusion. No pneumothorax. Cardiomediastinal silhouette: Normal cardiomediastinal silhouette. Bones and soft tissues: Neural stimulator wires overlie the lower thoracic/upper lumbar region. Multilevel degenerative change throughout the thoracic spine.. DIVISION OF RADIOLOGY Provider, [facility] Johanna eflix [place] - 05/02/2024 * * *Final Report* * * DATE OF EXAM: May 02 2024 6:02PM WOX [id number] - XR CHEST 2V FRONTAL/LAT / PROCEDURE REASON: Subacute cough * * * * Physician Interpretation * * * * EXAMINATION: CHEST RADIOGRAPH (2 VIEW FRONTAL & LATERAL) CLINICAL HISTORY: Subacute cough MQ: XC2_6 EXAM DATE/TIME: 05/02/2024 6:02 PM COMPARISON: No relevant prior studies available. RESULT: Lines, tubes, and devices: None. Lungs and pleura: No consolidation. No lung mass. No pleural effusion. No pneumothorax. Cardiomediastinal silhouette: Normal cardiomediastinal silhouette. Bones and soft tissues: Neural stimulator wires overlie the lower thoracic/upper lumbar region. Multilevel degenerative change throughout the thoracic spine.. IMPRESSION IMPRESSION: No acute radiographic abnormality. Napkin Machine Operator: HARJIT Transcribe Date/Time: May 02 2024 6:02P Dictated by : SIDNEY RUSSO MD This examination was interpreted and the report reviewed and electronically signed by: SIDNEY RUSSO MD on May 02 2024 6:03PM EST [facility] Radiology Study observation (narrative) [facility] XR Chest PA and LateralOrder ed By: [facility] Provider on 05-02-2024 [facility] 04-26-2024 CNPN Telephone (CHRISTIE) CONG HARRISON ([id number]) 1965 M Date Time Provider Department 04/26/24 ESTELA DAY During your visit today, we recorded the following information about you: Tova Juarez LPN 04/26/2024 11:16 AM Signed VM received from pt requesting a C9 for the (approved) scooter carrier and cover. Spoke with Juanis Morton who suggested calling [employer] for actual equipment code. Called [employer], left message for Rep to send the codes or call back with information to fill out C9. Tova Juarez LPN 05/08/2024 5:28 PM Signed Spoke with @ [employer] after not hearing from them, asked if there was a decision made on what car carrier and cover were needed for the scooter, stated they were not sure, will look into this and return the call. Direct number given. Tova Juarez LPN 05/23/2024 11:16 AM Signed No response from [employer] or pt to proceed with C9 for car carrier for scooter. Spoke with pt who stated I haven't heard anything from them either Called and spoke with [employer] Burgess, stated pt told us he is almost done with the lease on his car and will be getting another one soon, so we didn't want to proceed until this until pt has his next car, to make sure of getting the correct carrier. Explained pt never told us this was the holdup. Discussed that [employer] will generate a C9 and send it to us when he has his new car. Spoke with pt and updated on process of getting the carrier. Stated I understand. Allergies As of Date: 04/26/2024 Noted Allergy Reaction ADHESIVE TAPE (ROSINS) 11/17/2007 Date Reviewed: 04/04/2024 Reviewed by: Dawit Hernandez MD - Fully Assessed Reason for Visit: Request for C9 - scooter left AND cover [Other] Prescriptions as of 05/23/2024 - benzonatate (TESSALON PERLES) 100 mg capsule Take 1 capsule by mouth three times a day as needed for cough. - tapentadol (NUCYNTA) 100 mg tab Take 1 tablet by mouth every 6 hours as needed for up to 30 days. - DULoxetine (CYMBALTA) 60 mg capsule Take 1 capsule by mouth two times a day. - omeprazole (PRILOSEC) 40 mg capsule Take 1 capsule by mouth two times a day. - MOVANTIK 25 mg tablet Take 1 tablet by mouth once daily as needed. - terazosin (HYTRIN) 1 mg capsule Take 1 capsule by mouth once daily. - Tadalafil (CIALIS) 10 mg tablet Take 1 tablet by mouth once daily as needed (intercourse). No more than one pill in 24 hours - naloxone 4 mg/actuation nasal spray (NARCAN) Use 1 spray in one nostril as needed for overdose. May repeat every 2 to 3 min in alternating nostrils until medical assistance is available - Ascorbic Acid 100 mg chew Take 1 tablet by mouth once daily. - MULTIVITAMIN ORAL Take 1 tablet by mouth once daily. - TRAZODONE HCL (TRAZODONE ORAL) Take by mouth. - eszopiclone (LUNESTA) 3 mg tab Take 3 mg by mouth at bedtime as needed. Problem List As Of Date 04/26/2024 Noted Resolved Other ocean transportation intermediary (current) drug therapy [Z79.899]07/31/2020 Reflex sympathetic dystrophy of right leg - [facility]*05/15/2022 Complex regional pain syndrome type 1 of right *05/15/2022 Osteoarthritis of right knee - [facility] [M17.11] 05/15/2022 [facility] [facility] [F45.42] 03/09/2023 Encounter Status:Closed by TOVA JUAREZ on 05/23/24 [facility] CNOVon 04-04-2024 CNOV Office Visit (PAMMJK ) CONG HARRISON ([id number]) 1965 M Date Time Provider Department 04/04/24 8:15 AM DAWIT HERNANDEZ During your visit today, we recorded the following information about you: Temperature Pulse Respiration Blood pressure 97.4 degrees 101/minute 20/minute 124/74 Weight Height 88.5 kg 1.702 m Dawit Hernandez MD 04/05/2024 7:43 AM Signed This note was created using NoteWriter. Subjective Cong Harrison is a 59 year old male. The patient primarily being seen for left leg pain - [facility] Patient was last seen on: 02/07/24 At that time, the treatment plan was: see notes Current Meds: Nucynta - last dose this am, Cymbalta - this am, Prilosec - this am, Hytrin - last pm, Movantik - this am Efficacy: help to a certain degree Side effects: none TENS unit: has SCS How often used: 23/05 Benefit: helps Physical Therapy: years ago Last UDS: 04/04/24 Last injection: none OARRS reviewed 02/07/2024 04/04/2024 INTAKE PAIN ASSESSMENT Are you having pain associated with your visit today? Yes, Provider notified Yes, Provider notified Pain Scales Verbal (Numeric Rating or Visual Analog Scale) Verbal (Numeric Rating or Visual Analog Scale) Pain Level 7 9 Pain Location Leg-Left Leg-Right Description Aching;Dull;Burning;Num bness;Sharp;Stabbing Aching;Dull;Sharp;Stabb ing;Tingling Frequency Continuous Continuous Intervention/Comfort measure Medication Medication HPI Patient is getting adequate relief from the present regimen and denies any side effect from it except for constipation that is relieved by Movantik and MiraLAX. This has improved the patient?s level of functionality and has been able to perform activities of daily living. The patient exhibits no aberrant behavior. The PDMP report and last UDS are both consistent with prescribed medications and are unremarkable. Patient is no longer taking Lunesta and Cialis Review of Systems Constitutional: Negative for fever and unexpected weight change. Gastrointestinal: Positive for constipation. Musculoskeletal: + back pain, joint pain/swelling, numbness, tingling, muscle cramps/weakness, stiffness, arthritis, sciatica, restless legs, leg pain at night and leg pain with exertion. Objective BP 124/74 (BP Site: Left Arm, BP Position: Sitting, BP Cuff Size: Large Adult) Pulse 101 Temp 36.3 ?C (97.4 ?F) (Temporal) Resp 20 Ht 170.2 cm (5' 7) Wt 88.5 kg (195 lb) SpO2 99% BMI 30.54 kg/m? Physical Exam Vitals and nursing note reviewed. Constitutional: General: He is not in acute distress. Appearance: Normal appearance. He is well-developed and well-groomed. He is obese. HENT: Head: Normocephalic and atraumatic. Right Ear: External ear normal. Decreased hearing noted. Left Ear: External ear normal. Decreased hearing noted. Ears: Comments: Wearing hearing aids. Nose: Nose normal. Eyes: General: No scleral icterus. Extraocular Movements: Extraocular movements intact. Conjunctiva/sclera: Conjunctivae normal. Comments: Wearing glasses Musculoskeletal: Comments: He walks with a limp but is not using any assistive devices. The patient has tenderness to palpation in the thoracic and lumbar region with spasms noted in the paraspinal muscles. There is allodynia and hyperpathia noted in the BLE, right > left. Strength is 5/5 throughout. SLR is negative. He has tenderness to palpation in his right knee with crepitus noted. There is decreased hair growth and a reddish discoloration noted in the distal RLE. He has a prosthetic device noted in the distal LLE. There is allodynia noted in the left hand. Skin: General: Skin is warm and dry. Neurological: Mental Status: He is alert and oriented to person, place, and time. Psychiatric: Attention and Perception: Attention and perception normal. Mood and Affect: Mood and affect normal. Speech: Speech normal. Behavior: Behavior normal. Behavior is cooperative. Thought Content: Thought content normal. Judgment: Judgment normal. Assessment and Plan ASSESSMENT/PLAN: 1. Complex regional pain syndrome type 1 of left lower extremity - C - ICD9: 337.22, ICD10: G90.522 (primary diagnosis) - TOXASSURE? FLEX 23, URINE 2. Complex regional pain syndrome type 1 of right lower extremity - BWC - ICD9: 337.22, ICD10: G90.521 3. Osteoarthritis of right knee, unspecified osteoarthritis type - BWC - ICD9: 715.96, ICD10: M17.11 4. Psychogenic pain - C - ICD9: 307.80, ICD10: F45.42 PLAN: Repeat urine drug screen this visit. The patient will continue with Nucynta, duloxetine, terazosin, omeprazole, Movantik, and MiraLAX. He was encouraged to increase fluid and fiber intake. He will continue using his spinal cord stimulator. Patient will continue with core strengthening and range of motion exercises. He was encouraged to lose weight. F (more content not included)... [facility] Keith 04-04-2024 GARTH Telephone (CHRISTIE) CONG HARRISON ([id number]) 1965 M Date Time Provider Department 04/04/24 DAWIT HERNANDEZ During your visit today, we recorded the following information about you: Tova Juarez LPN 04/04/2024 9:38 AM Sigrid Frank here today for FUOV asking if we heard from [employer] or the [employer] about his WC. Spoke with Juanis ([facility]) who stated we are trying to come to an agreement with the [employer] on the correct type of chair for him, so I am waiting to hear back from them (some of this was delayed due to her time off and the holiday), and then I will give him a call. Spoke with pt and informed of update. Allergies As of Date: 04/04/2024 Noted Allergy Reaction ADHESIVE TAPE (ROSINS) 11/17/2007 Date Reviewed: 04/04/2024 Reviewed by: Dawit Hernandez MD - Fully Assessed Reason for Visit: Update on [facility] [Other] Prescriptions as of 04/04/2024 - tapentadol (NUCYNTA) 100 mg tab Take 1 tablet by mouth every 6 hours as needed for up to 30 days. - DULoxetine (CYMBALTA) 60 mg capsule Take 1 capsule by mouth two times a day. - omeprazole (PRILOSEC) 40 mg capsule Take 1 capsule by mouth two times a day. - MOVANTIK 25 mg tablet Take 1 tablet by mouth once daily as needed. - terazosin (HYTRIN) 1 mg capsule Take 1 capsule by mouth once daily. - Tadalafil (CIALIS) 10 mg tablet Take 1 tablet by mouth once daily as needed (intercourse). No more than one pill in 24 hours - naloxone 4 mg/actuation nasal spray (NARCAN) Use 1 spray in one nostril as needed for overdose. May repeat every 2 to 3 min in alternating nostrils until medical assistance is available - Ascorbic Acid 100 mg chew Take 1 tablet by mouth once daily. - MULTIVITAMIN ORAL Take 1 tablet by mouth once daily. - TRAZODONE HCL (TRAZODONE ORAL) Take by mouth. - eszopiclone (LUNESTA) 3 mg tab Take 3 mg by mouth at bedtime as needed. Problem List As Of Date 04/04/2024 Noted Resolved Other ocean transportation intermediary (current) drug therapy [Z79.899]07/31/2020 Reflex sympathetic dystrophy of right leg - [facility]*05/15/2022 Complex regional pain syndrome type 1 of right *05/15/2022 Osteoarthritis of right knee - [facility] [M17.11] 05/15/2022 Psychogenic pain - [facility] [F45.42] 03/09/2023 Encounter Status:Closed by TOVA JUAREZ on 04/04/24 [facility] Keith 03-19-2024 BRETN Telephone (VICENTE) CONG HARRISON ([id number]) 1965 M Date Time Provider Department 03/19/24 ESTELA DAY During your visit today, we recorded the following information about you: Tuyet Randolph RN 03/19/2024 1:13 PM Signed Patient called and stated that nucynta script was sent to the wrong pharmacy. Called and cancelled script [facility] pharmacy. New script attached to go to [facility]. SANKET Billy Michael R, PA-C 03/19/2024 1:38 PM Signed The following approved medication requests have been transmitted electronically. Requested Prescriptions Signed Prescriptions Disp Refills tapentadol (NUCYNTA) 100 mg tab 120 tablet 0 Sig: Take 1 tablet by mouth every 6 hours as needed for up to 30 days. Authorizing Provider: ESTELA DAY PA-C Allergies As of Date: 03/19/2024 Noted Allergy Reaction ADHESIVE TAPE (ROSINS) 11/17/2007 Date Reviewed: 02/07/2024 Reviewed by: Estela Day PA-C - Fully Assessed Reason for Visit: Medication Problem [65] Visit Diagnosis:Complex regional pain syndrome type 1 of left lower extremity [G90.522] Order(s):tapentadol (NUCYNTA) 100 mg tabTake 1 tablet by mouth every 6 hours as needed for up to 30 days.Disp: 120 tabletRfl: 0 Prescriptions as of 03/19/2024 - tapentadol (NUCYNTA) 100 mg tab Take 1 tablet by mouth every 6 hours as needed for up to 30 days. - DULoxetine (CYMBALTA) 60 mg capsule Take 1 capsule by mouth two times a day. - omeprazole (PRILOSEC) 40 mg capsule Take 1 capsule by mouth two times a day. - MOVANTIK 25 mg tablet Take 1 tablet by mouth once daily as needed. - terazosin (HYTRIN) 1 mg capsule Take 1 capsule by mouth once daily. - Tadalafil (CIALIS) 10 mg tablet Take 1 tablet by mouth once daily as needed (intercourse). No more than one pill in 24 hours - naloxone 4 mg/actuation nasal spray (NARCAN) Use 1 spray in one nostril as needed for overdose. May repeat every 2 to 3 min in alternating nostrils until medical assistance is available - Ascorbic Acid 100 mg chew Take 1 tablet by mouth once daily. - MULTIVITAMIN ORAL Take 1 tablet by mouth once daily. - TRAZODONE HCL (TRAZODONE ORAL) Take by mouth. - eszopiclone (LUNESTA) 3 mg tab Take 3 mg by mouth at bedtime as needed. Problem List As Of Date 03/19/2024 Noted Resolved Other snf (current) drug therapy [Z79.899]07/31/2020 Reflex sympathetic dystrophy of right leg - [facility]*05/15/2022 Complex regional pain syndrome of left lower ex*05/15/2022 Osteoarthritis of right knee - [facility] [M17.11] 05/15/2022 Psychogenic pain - [facility] [F45.42] 03/09/2023 Prescriptions ordered this encounter Disp Refills Start End TAPENTADOL 100 MG TABLET 120 * 0 03/19/2024 04/18/2024 Cmt: [id number] Route: ORAL Sig: Take 1 tablet by mouth every 6 hours as needed for up to 30 days. Medications Discontinued During This Encounter Prescriptions - tapentadol (NUCYNTA) 100 mg tab (Discontinued) Take 1 tablet by mouth every 6 hours as needed for up to 30 days. Encounter Status:Closed by ESTELA DAY on 03/19/24 [facility] Zachary 02-07-2024 [facility] Office Visit (CHRISTIE ) CONG HARRISON ([id number]) 1965 M Date Time Provider Department 02/07/24 8:30 AM ESTELA DAY During your visit today, we recorded the following information about you: Temperature Pulse Respiration Blood pressure 97.3 degrees 84/minute 20/minute 139/73 Weight Height 88.9 kg 1.702 m Estela Day PA-C 02/07/2024 8:41 AM Signed This note was created using Q-Senseiriter. Subjective Cong Harrison is a 59 year old male. The patient primarily being seen for left leg pain - [facility] Patient was last seen on: 12/27/23 At that time, the treatment plan was: see notes Current Meds: Nucynta - last dose this am, Cymbalta - this am, Prilosec - this am, Hytrin - last pm, Movantik- this am Efficacy: help somewhat Side effects: constipation - relieved with Miralax and Movantik TENS unit: has SCS How often used: 23/05 Benefit: helps Physical Therapy: years ago Last UDS: 10/05/23 Last injection: none OARRS reviewed At the present time, the patient reports some benefit with his present analgesic therapy. He is using movantik and miralax for his constipation. Since his previous visit, he denies any hospitalizations or ER visits. He states that the spinal cord stimulator helps and covers his areas of pain. 12/27/2023 02/07/2024 INTAKE PAIN ASSESSMENT Are you having pain associated with your visit today? Yes, Provider notified Yes, Provider notified Pain Scales Verbal (Numeric Rating or Visual Analog Scale) Verbal (Numeric Rating or Visual Analog Scale) Pain Level 7 7 Pain Location Leg-Left Leg-Left Description Aching;Dull;Burning;Sha rp;Shooting Aching;Dull;Burning;Num bness;Sharp;Stabbing Frequency Continuous Continuous Intervention/Comfort measure Medication Medication HPI PAST MEDICAL HISTORY Diagnosis Date Amputated left leg (HCC) 2003 GERD (gastroesophageal reflux disease) PAST SURGICAL HISTORY Procedure Laterality Date ARTHROPLASTY HEMIARTHROPLASTY total knee ORTHOPEDICS SURGERY HX N/A 20 srg on left leg PRQ IMPLTJ NSTIM ELECTRODE ARRAY EPIDURAL SCS WRIST SURGERY HX right Social History Tobacco Use Smoking status: Never Smokeless tobacco: Never Substance Use Topics Alcohol use: Not Currently Drug use: Never Review of Systems Constitutional: Negative for fever and unexpected weight change. Gastrointestinal: Positive for constipation. Musculoskeletal: + back pain, joint pain/swelling, numbness, tingling, muscle cramps/weakness, stiffness, arthritis, sciatica, restless legs, leg pain at night and leg pain with exertion. Objective BP 139/73 (BP Site: Left Arm, BP Position: Sitting, BP Cuff Size: Large Adult) Pulse 84 Temp 36.3 ?C (97.3 ?F) (Temporal) Resp 20 Ht 170.2 cm (5' 7) Wt 88.9 kg (196 lb) SpO2 99% BMI 30.70 kg/m? Physical Exam Vitals and nursing note reviewed. Constitutional: Appearance: Normal appearance. He is well-developed and well-groomed. He is obese. HENT: Head: Normocephalic and atraumatic. Right Ear: Decreased hearing noted. Left Ear: Decreased hearing noted. Ears: Comments: Wearing hearing aids. Eyes: Conjunctiva/sclera: Conjunctivae normal. Comments: Wearing glasses Musculoskeletal: Comments: He walks with a limp but is not using any assistive devices. The patient has tenderness to palpation in the thoracic and lumbar region with spasms noted in the paraspinal muscles. There is allodynia and hyperpathia noted in the BLE, right > left. Strength is 5/5 throughout. SLR is negative. He has tenderness to palpation in his right knee with crepitus noted. There is decreased hair growth and a reddish discoloration noted in the distal RLE. He has a prosthetic device noted in the distal LLE. There is allodynia noted in the left hand. Neurological: Mental Status: He is alert and oriented to person, place, and time. Psychiatric: Attention and Perception: Attention and perception normal. Mood and Affect: Mood and affect normal. Speech: Speech normal. Behavior: Behavior normal. Behavior is cooperative. Thought Content: Thought content normal. Judgment: Judgment normal. Assessment and Plan ASSESSMENT/PLAN: 1. Complex regional pain syndrome type 1 of left lower extremity - ICD9: 337.22, ICD10: G90.522 (primary diagnosis) The OARRS report has been reviewed and is consistent with the patients medical history and medication intake. He will continue with Nucynta, duloxetine, terazosin, omeprazole, eszopiclone, Movantik, tadalafil, and MiraLAX. Patient was encouraged to increase fluid and fiber intake. He will continue using his spinal cord stimulator. Call Maggy if you need to have this reprogrammed [phone]. He will continue with core strengthening and range of motion exercises. Follow-up in the office in [address] Hernandez 2. Complex regional pain syndrome type 1 (more content not included)... [facility] CNOVon 12-27-2023 CNOV Office Visit (PAMMJK ) CONG HARRISON ([id number]) 1965 M Date Time Provider Department 12/27/23 8:30 AM ESTELA DAY During your visit today, we recorded the following information about you: Temperature Pulse Respiration Blood pressure 97.5 degrees 93/minute 20/minute 125/76 Weight Height 88.9 kg 1.702 m Estela Day PA-C 12/27/2023 8:56 AM Signed This note was created using Q-Senseiriter. Subjective Cong Harrison is a 58 year old male. The patient primarily being seen for left leg pain - [facility] Patient was last seen on: 11/15/23 At that time, the treatment plan was: see notes Current Meds: Nucynta - last dose this am, Cymbalta - this am, Prilosec - this am, Hytrin - last pm, Movantik - this am Efficacy: help Side effects: none TENS unit: has SCS How often used: 23/05 Benefit: helps Physical Therapy: years ago Last UDS: 10/05/23 Last injection: none OARRS reviewed At the present time, the patient reports benefit with his present analgesic therapy. He uses movantik for his constipation. He is worried about his medications because [facility]'s payment system is currently down and he can not afford to pay reyes for his movantik or nucynta and then get reimbursed. Since his previous visit, he denies any hospitalizations or ER visits. He states that the spinal cord stimulator helps and covers his areas of pain. He is working on getting a motorized wheelchair for when he wants to go to places that would require him to cover longer distances. He states he does not need a walker or cane when coming in to our office for his appointments due to it being a shorter distance. When he walks for longer distances he uses a cane but even with the cane he is limited in how long he can walk before he has to stop to rest. He also has issues with the leg giving out when he is on it for longer periods of time. He is worried that he would not have the arm strength to use a manual wheelchair all day which would limit him to only going out when he has someone else to assist him, which limits his independence. INTAKE PAIN ASSESSMENT 11/15/2023 12/27/2023 Are you having pain associated with your visit today? Yes, Provider notified Yes, Provider notified Pain Scales Verbal (Numeric Rating or Visual Analog Scale) Verbal (Numeric Rating or Visual Analog Scale) Pain Level 7 7 Pain Location Leg-Left Leg-Left Description Stabbing;Aching;Burning Aching;Dull;Burning;Sha rp;Shooting Duration Amount of Time - - Duration Units - - Frequency Continuous Continuous Intervention/Comfort measure Medication;Other: See comment Medication Comments - - HPI PAST MEDICAL HISTORY Diagnosis Date Amputated left leg (HCC) 2003 GERD (gastroesophageal reflux disease) PAST SURGICAL HISTORY Procedure Laterality Date ARTHROPLASTY HEMIARTHROPLASTY total knee ORTHOPEDICS SURGERY HX N/A 20 srg on left leg PRQ IMPLTJ NSTIM ELECTRODE ARRAY EPIDURAL SCS WRIST SURGERY HX right Social History Tobacco Use Smoking status: Never Smokeless tobacco: Never Substance Use Topics Alcohol use: Not Currently Drug use: Never Review of Systems Constitutional: Negative for fever and unexpected weight change. Gastrointestinal: Positive for constipation. Musculoskeletal: + back pain, joint pain/swelling, numbness, tingling, muscle cramps/weakness, stiffness, arthritis, sciatica, restless legs, leg pain at night and leg pain with exertion. Objective BP 125/76 (BP Site: Left Arm, BP Position: Sitting, BP Cuff Size: Large Adult) Pulse 93 Temp 36.4 ?C (97.5 ?F) (Temporal) Resp 20 Ht 170.2 cm (5' 7) Wt 88.9 kg (196 lb) SpO2 97% BMI 30.70 kg/m? Physical Exam Vitals and nursing note reviewed. Constitutional: Appearance: Normal appearance. He is well-developed and well-groomed. He is obese. HENT: Head: Normocephalic and atraumatic. Right Ear: Hearing normal. Left Ear: Hearing normal. Eyes: Conjunctiva/sclera: Conjunctivae normal. Comments: Wearing glasses Musculoskeletal: Comments: He walks with a limp but is not using any assistive devices. The patient has tenderness to palpation in the thoracic and lumbar region with spasms noted in the paraspinal muscles. There is allodynia and hyperpathia noted in the BLE, right > left. Strength is 5/5 throughout. SLR is negative. He has tenderness to palpation in his right knee with crepitus noted. There is decreased hair growth and a reddish discoloration noted in the distal RLE. He has a prosthetic device noted in the distal LLE. There is allodynia noted in the left hand. Neurological: Mental Status: He is alert and oriented to person, place, and time. Psychiatric: Attention and Perception: Attention and perception normal. Mood and Affect: Mood and affect normal. Speech: Speech normal. Behavior: Behavior normal. Behavior is cooperati (more content not included)... [facility] CNOVon 11-15-2023 [facility] Office Visit (CHRISTIE ) CONG HARRISON ([id number]) 1965 M Date Time Provider Department 11/15/23 8:30 AM ESTELA DAY During your visit today, we recorded the following information about you: Temperature Pulse Respiration Blood pressure 97.6 degrees 108/minute 18/minute 135/84 Estela Day PA-C 11/15/2023 9:00 AM Signed This note was created using Q-Senseiriter. Subjective Cong Harrison is a 58 year old male. The patient primarily being seen for left leg pain [facility] Patient was last seen on: 10/05/23 At that time, the treatment plan was: see notes Current Meds: Nucynta last dose this am,Cymbalta last dose this am, Prilosec last dose this am, hytrin last dose last pm, Movantik last dose this am Efficacy: med help somewhat Side effects: constipation TENS unit: SCS How often used: Benefit: Physical Therapy: Last UDS: 04/22 Last injection:none OARRS reviewed yes At the present time, the patient reports some benefit with his present analgesic therapy. He uses movantik for his constipation. He tried the sildenafil but states this was not effective and he would like to try something different. Since his previous visit, he denies any hospitalizations or ER visits. He states that the spinal cord stimulator helps and covers his areas of pain. INTAKE PAIN ASSESSMENT 10/05/2023 11/15/2023 Are you having pain associated with your visit today? Yes, Provider notified Yes, Provider notified Pain Scales Verbal (Numeric Rating or Visual Analog Scale) Verbal (Numeric Rating or Visual Analog Scale) Pain Level 7 7 Pain Location Leg-Left Leg-Left Description Burning;Aching;Stabbing Stabbing;Aching;Burning Duration Amount of Time - - Duration Units - - Frequency Continuous Continuous Intervention/Comfort measure Medication;Relaxation;S wm Cord Stimulator Medication;Other: See comment Comments - - HPI PAST MEDICAL HISTORY Diagnosis Date Amputated left leg (HCC) 2003 GERD (gastroesophageal reflux disease) PAST SURGICAL HISTORY Procedure Laterality Date ARTHROPLASTY HEMIARTHROPLASTY total knee ORTHOPEDICS SURGERY HX N/A 20 srg on left leg PRQ IMPLTJ NSTIM ELECTRODE ARRAY EPIDURAL SCS WRIST SURGERY HX right Social History Tobacco Use Smoking status: Never Smokeless tobacco: Never Substance Use Topics Alcohol use: Not Currently Drug use: Never Review of Systems Constitutional: Negative for fever and unexpected weight change. Gastrointestinal: Positive for constipation. Musculoskeletal: + back pain, joint pain/swelling, numbness, tingling, muscle cramps/weakness, stiffness, arthritis, sciatica, restless legs, leg pain at night and leg pain with exertion. Objective BP 135/84 (BP Site: Left Arm, BP Position: Sitting, BP Cuff Size: Large Adult) Pulse 108 Temp 36.4 ?C (97.6 ?F) Resp 18 SpO2 100% Physical Exam Vitals and nursing note reviewed. Constitutional: Appearance: Normal appearance. He is well-developed and well-groomed. He is obese. HENT: Head: Normocephalic and atraumatic. Right Ear: Hearing normal. Left Ear: Hearing normal. Eyes: Conjunctiva/sclera: Conjunctivae normal. Comments: Wearing glasses Musculoskeletal: Comments: He walks with a limp but is not using any assistive devices. The patient has tenderness to palpation in the thoracic and lumbar region with spasms noted in the paraspinal muscles. There is allodynia and hyperpathia noted in the BLE, right > left. Strength is 5/5 throughout. SLR is negative. He has tenderness to palpation in his right knee with crepitus noted. There is decreased hair growth and a reddish discoloration noted in the distal RLE. He has a prosthetic device noted in the distal LLE. There is allodynia noted in the left hand. Neurological: Mental Status: He is alert and oriented to person, place, and time. Psychiatric: Attention and Perception: Attention and perception normal. Mood and Affect: Mood and affect normal. Speech: Speech normal. Behavior: Behavior normal. Behavior is cooperative. Thought Content: Thought content normal. Judgment: Judgment normal. Assessment and Plan ASSESSMENT/PLAN: 1. Complex regional pain syndrome type 1 of left lower extremity - ICD9: 337.22, ICD10: G90.522 (primary diagnosis) The OARRS report has been reviewed and is consistent with the patients medical history and medication intake. The patient underwent a random drug screen at today's office visit. He will continue with Nucynta, duloxetine, terazosin, omeprazole, eszopiclone, Movantik, and MiraLAX. Stop the sildenafil and start tadalafil 10 mg once every 24 hours as needed before activity. Patient was encouraged to increase fluid and fiber intake. He will continue using his spinal cord stimulator. Call Maggy if you need to have this reprogrammed [phone]. He will continue with (more content not included)... [facility] (PAMMJK ) CONG HARRISON ([id number]) 1965 M Date Time Provider Department 10/05/23 8:15 AM ESTELA DAY During your visit today, we recorded the following information about you: Temperature Pulse Respiration Blood pressure 97.2 degrees 120/minute 18/minute 120/77 Estela Day, KALIC 10/05/2023 8:25 AM Signed This note was created using Q-Senseiriter. Subjective Cong Harrison is a 58 year old male. The patient primarily being seen for left leg pain-[facility] Patient was last seen on: 08/24/23 At that time, the treatment plan was: see notes Current Meds: Nucynta am/ Cymbalta am/ Prilosec am/ Hytrin last pm/ Movantik am Efficacy: helpful Side effects: constipation, ED TENS unit: SCS How often used: 23/05 Benefit: helpful Physical Therapy: Last UDS: 10/05/23 Last injection: OARRS reviewed At the present time, the patient reports benefit with his present analgesic therapy. He uses movantik for his constipation. He has been having issues with ED and believes this is related to the medication. Since his previous visit, he denies any hospitalizations or ER visits. He states that the spinal cord stimulator helps and covers his areas of pain. He had a wheelchair evaluation done last week regarding getting a power wheelchair to help him with getting around longer distances. INTAKE PAIN ASSESSMENT 08/24/2023 10/05/2023 Are you having pain associated with your visit today? Yes, Provider notified Yes, Provider notified Pain Scales Verbal (Numeric Rating or Visual Analog Scale) Verbal (Numeric Rating or Visual Analog Scale) Pain Level 7 7 Pain Location Leg-Left Leg-Left Description Stabbing;Numbness;Tingl ing Burning;Aching;Stabbing Duration Amount of Time - - Duration Units - - Frequency Continuous Continuous Intervention/Comfort measure Medication;Relaxation;S wm Cord Stimulator Medication;Relaxation;S wm Cord Stimulator Comments - - OPIOID RISK TOOL Family History of Substance Abuse None 0 Personal History of Substance Abuse None 0 Age ([place] if 16-45) No 0 History of Preadolescent Sexual Abuse No 0 Psychological Disease None 0 TOTAL 0 Total Score Risk Category Low Risk 0 - 3 Moderate Risk 4 - 7 High Risk > or = 8 HPI PAST MEDICAL HISTORY Diagnosis Date Amputated left leg (HCC) 2003 GERD (gastroesophageal reflux disease) PAST SURGICAL HISTORY Procedure Laterality Date ARTHROPLASTY HEMIARTHROPLASTY total knee ORTHOPEDICS SURGERY HX N/A 20 srg on left leg PRQ IMPLTJ NSTIM ELECTRODE ARRAY EPIDURAL SCS WRIST SURGERY HX right Social History Tobacco Use Smoking status: Never Smokeless tobacco: Never Substance Use Topics Alcohol use: Not Currently Drug use: Never Review of Systems Constitutional: Negative for fever and unexpected weight change. Gastrointestinal: Positive for constipation. Musculoskeletal: + back pain, joint pain/swelling, numbness, tingling, muscle cramps/weakness, stiffness, arthritis, sciatica, restless legs, leg pain at night and leg pain with exertion. Objective BP 120/77 (BP Site: Left Arm, BP Position: Sitting, BP Cuff Size: Large Adult) Pulse 120 Temp 36.2 ?C (97.2 ?F) (Temporal) Resp 18 SpO2 98% Physical Exam Vitals and nursing note reviewed. Constitutional: Appearance: Normal appearance. He is well-developed and well-groomed. He is obese. HENT: Head: Normocephalic and atraumatic. Right Ear: Hearing normal. Left Ear: Hearing normal. Eyes: Conjunctiva/sclera: Conjunctivae normal. Comments: Wearing glasses Musculoskeletal: Comments: He walks with a limp but is not using any assistive devices. The patient has tenderness to palpation in the thoracic and lumbar region with spasms noted in the paraspinal muscles. There is allodynia and hyperpathia noted in the BLE, right > left. Strength is 5/5 throughout. SLR is negative. He has tenderness to palpation in his right knee with crepitus noted. There is decreased hair growth and a reddish discoloration noted in the distal RLE. He has a prosthetic device noted in the distal LLE. There is allodynia noted in the left hand. Neurological: Mental Status: He is alert and oriented to person, place, and time. Psychiatric: Attention and Perception: Attention and perception normal. Mood and Affect: Mood and affect normal. Speech: Speech normal. Behavior: Behavior normal. Behavior is cooperative. Thought Content: Thought content normal. Judgment: Judgment normal. Assessment and Plan ASSESSMENT/PLAN: 1. Complex regional pain syndrome type 1 of left lower extremity - ICD9: 337.22, ICD10: G90.522 (primary diagnosis) The OARRS report has been reviewed and is consistent with the patients medical history and medication intake. The patient underwent a random drug screen at today's office visit. He will continue with (more content not included)... [facility] Keith 09-16-2023 CNPN Telephone (CHRISTIE) CONG HARRISON ([id number]) 1965 M Date Time Provider Department 09/16/23 ESTELA DAY During your visit today, we recorded the following information about you: Tova Juarez LPN 09/16/2023 2:14 PM Signed Process for [facility] coverage of powerchair request started and per [facility], needs a OT Eval 1st before request can be made for powerchair. Also stated [facility] will decide on powerchair company once request is made. Explained to pt who requested OT Eval be done at [facility] (fax for order [phone]). Just needs order signed. Estela Day PA-C 09/16/2023 2:22 PM Signed Noted, and signed. Tova Juarez LPN 09/20/2023 11:11 AM Signed Order with approval was faxed to [facility] per pt request, 09/16/23 @ 1552. Pt informed. Estela Day PA-C 09/20/2023 12:41 PM Signed Call was received from [facility] that they need an order for PT for the wheelchair evaluation, not OT. The order was changed and faxed to [phone]. 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 - terazosin (HYTRIN) 1 mg capsule Take 1 capsule by mouth once daily. - DULoxetine (CYMBALTA) 60 mg capsule Take 1 capsule by mouth twice daily. - omeprazole (PRILOSEC) 40 mg capsule Take 1 capsule by mouth twice daily. - MOVANTIK 25 mg tablet Take 1 tablet by mouth once daily as needed. - naloxone 4 mg/actuation nasal spray (NARCAN) Use 1 spray in one nostril as needed for overdose. May repeat every 2 to 3 min in alternating nostrils until medical assistance is available - Ascorbic Acid 100 mg chew Take 1 tablet by mouth once daily. - MULTIVITAMIN ORAL Take 1 tablet by mouth once daily. - OPANA ER 40 mg TR12 - TRAZODONE HCL (TRAZODONE ORAL) Take by mouth. - zolpidem (AMBIEN) 10 mg Take by mouth at bedtime as needed. - eszopiclone (LUNESTA) 3 mg tab Take 3 mg by mouth at bedtime as needed. Problem List As Of Date 09/16/2023 Noted Resolved Other ocean transportation intermediary (current) drug therapy [Z79.899]07/31/2020 Reflex sympathetic dystrophy of right leg - [facility]*05/15/2022 Complex regional pain syndrome of left lower ex*05/15/2022 Osteoarthritis of right knee - [facility] [M17.11] 05/15/2022 Psychogenic pain - [facility] [F45.42] 03/09/2023 Encounter Status:Closed by TOVA JUAREZ on 09/20/23 Normal [facility] FLUOROSCOPY IN OR/PAIN MGTon 12-24-2019 FLUOROSCOPY IN OR/PAIN MGT FLUOROSCOPY IN OR/PAIN MGT Ordering Physician: Ashutosh Hopkins DO 12/24/2019 9:30 AM SPINAL FLUOROSCOPY Clinical Statement: Reflex sympathetic dystrophy lower extremities FINDINGS: Four seconds fluoroscopy time was utilized by Dr. Hopkins. Three C-arm images of the spine were obtained. IMPRESSION: Four seconds fluoroscopy time utilized by Dr. Hopkins. ---- Electronic Signature on File ---- Signed By: Clark De Los Santos MD FACR [email or web address] Dictated: 12/24/2019 11:05 AM Signed: 12/24/2019 11:06 AM Reported By: CLARK DE LOS SANTOS M.D. Signed By: CLARK DE LOS SANTOS M.D. Normal [facility] MRSA PCRon 12-24-2019 MRSA PCR Negative Normal NEGATIVE [facility] Comment on above: Order Comment: Campu s: M Result Comment: PLEA SE NOTE: TESTING DONE BY PCR TECHNOLOGY. Performed By: #### L [id number] #### [facility] [address] [place] [address] SA PCR Negative Normal NEGATIVE [facility] Comment on above: Order Comment: Ibrahimau s: M Result Comment: PLEA SE NOTE: TESTING DONE BY [employer]CHN[employer]. Performed By: #### L [id number] #### [facility] [address] [place] [address] OR.OPRPTon 12-24-2019 Operative Report Normal [facility] OR.OPRPT [facility] Patient Name: CONG HARRISON [address] [place] [address] Date of : [address] [address] Unit Number: [id number] Operative Report Patient Status: [facility] Attending Doctor: Ashutosh Hopkins DO Service Date: 12/24/19 1228 Operative Report Procedure Date: 12/24/19 Attending Physician: Ashutosh Hopkins DO Procedure: Preoperative Diagnosis: 1. Nonfunctioning spinal cord stimulator system 2. Reflect sympathetic dystrophy Postoperative Diagnosis: Same Procedure Type: 1. T12 partial laminectomy for removal of spinal cord stimulator lead 2. Implant Tripole 16 spinal cord stimulator lead ([employer]) 3. Program and activate spinal cord stimulator system 4. Fluoroscopic guidance and interpretation Anesthesia: Local with sedation Estimated Blood Loss: 10 mL IV Fluids: See anesthesia record Urine Output: Not measured Complications: None apparent Findings/Specimens: The preoperative elevated impedance were found when I tested the lead interoperatively. This confirmed my decision to replace the lead with a new Tripole 16- lead. Procedure Details: This is a 54-year-old male who is well-known to me. He has RSD status post lower extremity amputation. He has had a spinal cord stimulator system for many years. In May 2019 he had a new generator implanted. He did well for period of time until approximately 2 months ago when the stimulator stopped working completely. Interrogation of the system demonstrated elevated impedances in all contexts except 1. In an effort to restore function of the spinal cord stimulator system he was brought to surgery today for exploration and repair or replacement of the spinal cord stimulator lead. Informed consent was obtained prior to the procedure. Surgical site was identified and marked in the preop holding area. The patient was brought to the operating room and placed in the prone position on the operating table with bony prominences well-padded. The skin in the lumbar region and left flank were then prepped using ChloraPrep and draped in a sterile fashion. The skin subcutaneous tissue and the paraspinal musculature in the region of the previous thoracic incision was anesthetized with a local anesthetic solution containing equal parts of 0.5% bupivacaine with epinephrine and 1% Xylocaine without epinephrine. The surgical scar overlying the extension lead connection in the left flank was also anesthetized with the same local anesthetic solution. Once satisfactory local anesthetic had been obtained, the left flank incision was opened. I dissected down and identified the extension lead. This old lead was a single lead and therefore had a single extension. I released the suture and the set screw that connected the 2 segments. The spinal segment was then connected to the testing extension. The system was tested and the impedances were noted to be elevated through all contacts except 1. At this point and made the decision that the lead needed to be replaced. The skin was incised through the old surgical scar in the thoracic region. Preprocedure x -ray showed the lead was inserted from the top down at the T12 level. I dissected along the lead down to the level of the lamina. I performed a partial superior T12 laminectomy in order to gain access to the lead and remove it from the epidural space. It was indeed removed intact. With the patient fully awake and talking to me I then inserted a new Tripole 16 lead into the dorsal epidural space. It was connected to the testing extensions and we confirmed that we were able to stimulate down both legs and get good coverage of his painful areas. #2 Ethibond sutures were then passed through the T11 spinous process. Silastic lead anchors were passed over the leads down to the level of the T11 spinous process. The sutures were then used to secure the lead and lead anchors to the T11 spinous process. I then retested again and found continued good coverage of his painful areas down the legs. This wound was then copiously irrigated with saline solution. It was a subsequently irrigated with Irrisept that was left in the wound for a full minute. It was then reirrigated with saline solution. Approximately 1/2 g of vancomycin powder was placed in the wound. The deep fascia was closed with #1 Vicryl suture. The tunneling device was then passed from the flank incision and delivered out through the thoracic incision and subcutaneous plane. The lead was passed down through the tunneling device and delivered out through the flank incision. A stress relief loop was left in the thoracic region. 0 Vicryl suture was used to close the subcutaneous tissue followed by final skin approximation with 3-0 nylon sutures. A sterile compression dressing was applied to this incision. The flank wound was closed with 0 Vicryl suture and covered with a Bioclusive dressing. The sterile drapes were then removed. The patient was then rolled up into the right lateral decubitus position with bony prominences well-padded. The left flank and left abdominal region was then prepped using ChloraPrep and draped in a sterile fashion. The subcutaneous tissue and the skin overlying the generator and left abdominal region was then anesthetized with the same local anesthetic solution. A subcutaneous pathway between the flank incision of the abdominal incision was also anesthetized with the same local anesthetic solution. Once satisfactory local anesthetic had been obtained, the skin was incised to the surgical scar overlying the generator. I dissected down through the subcutaneous tissue and opened the pseudocapsule around the generator. The extension lead was then pulled out through the abdominal incision. The tunneling device was passed from the abdominal incision out through the flank incision. The new leads were then delivered through the tunneling device out through the abdominal incision. The leads were thoroughly dried and placed in the receptacles on the generator and the setscrews were tightened. The impedance of the system was tested and found to be within normal limits. The abdominal incision was then irrigated with Irricept which was left in the wound for a full minute. I then removed it and irrigated with saline solution. The generator was delivered back into the wound. Vancomycin powder was placed in the generator pocket. The pseudocapsule surrounding the generator was then closed with 0 Vicryl suture followed by final skin approximation with 3 -0 nylon suture in a vertical mattress technique. The flank incision was irrigated with the Irrricept which was left in place for a minute and then irrigated. A small amount of vancomycin powder was placed in this wound. 0 Vicryl suture was used to close the subcutaneous tissue followed by final skin approximation with vertical mattress nylon sutures. Sterile dressings were applied to both incisions. The patient was then carefully rolled off the operating table onto the transfer cart. He was taken to postanesthetic care unit. He was transferred to the outpatient surgery department. He was at this point that the spinal cord stimulator system was programmed and activated. Discharge summary: Following recovery in the PACU he was taken to the outpatient surgery department. Upon meeting the criteria for discharge she was discharged home in the care of his family. They were instructed to change the dressing daily with a dry sterile dressing. He may shower in 4 days if there is no drainage from the incisions. I will see him back in my office January 08, 2020 at 8 AM. He will use Nucynta which has been prescribed by pain management for his postoperative pain. His condition on discharge is stable. His prognosis is good. Disclaimer This dictation was created using voice recognition software. Phonetic and/or minor grammatical errors may exist. eSign Date and Time Ashutosh Hopkins DO Verified/Reviewed by 12/24/19 1245 [facility] AMYLASE ([id number])Ordered By: Chavez Sultana on 03-12-2009 Amylase [Catalytic activity/Vol] 49 U/L Normal 31-124 [facility] Work Phone: Comment on above: Please note refere nce interval change PATIENT NOT FASTINGP ERFORMED BY: [facility] HospitalZuzeav2198 [facility] [id number] CBC with manual diff ([id number]) Ordered By: Hollie Macdonaldstephani on 03-12-2009 Basophils (Bld) [#/Vol] 0.1 {x10E3/uL} Normal 0.0-0.2 [facility] Work Phone: Comment on above: PATIENT NOT FASTINGC linical Information: ADD DRAW FEE [id number] ADD J 72619 PERFORMED BY: MINE LabChrist[place] [id number] [facility] [id number] Basophils (Bld) [#/Vol] 0.1 10*3/uL Normal 0.0-0.2 [facility]; [facility] Work Phone: Comment on above: PATIENT NOT FASTINGC linical Information: ADD DRAW FEE [id number] ADD J 43299 PERFORMED BY: [facility]6370 [facility] [id number] Basophils/100 WBC (Bld) 1 % Normal 0-3 [facility] Work Phone: Comment on above: PATIENT NOT FASTINGC linical Information: ADD DRAW FEE [id number] ADD J 64320 PERFORMED BY: [facility] [id number] Eosinophils (Bld) [#/Vol] 0.0 {x10E3/uL} Normal 0.0-0.4 [facility] Work Phone: Comment on above: PATIENT NOT FASTINGC linical Information: ADD DRAW FEE [id number] ADD J 42208 PERFORMED BY: [facility] [id number] Eosinophils (Bld) [#/Vol] 0.0 10*3/uL Normal 0.0-0.4 [facility]; [facility] Work Phone: Comment on above: PATIENT NOT FASTINGC linical Information: ADD DRAW FEE [id number] ADD J 97449 PERFORMED BY: [facility] [id number] Eosinophils/100 WBC (Bld) 0 % Normal 0-7 [facility] Work Phone: Comment on above: PATIENT NOT FASTINGC linical Information: ADD DRAW FEE 636195 ADD J 04493 PERFORMED BY: [address] [id number] Erythrocyte distribution width (RBC) [Ratio] 15.9 % Abnormal 11.7-15.0 [facility] Work Phone: Comment on above: PATIENT NOT FASTINGC linical Information: ADD DRAW FEE [id number] ADD J 18410 PERFORMED BY: [address] [id number] Hematocrit (Bld) [Volume fraction] 42.3 % Normal 36.0-50.0 [facility] Work Phone: Comment on above: PATIENT NOT FASTINGC linical Information: ADD DRAW FEE [id number] ADD J 77774 PERFORMED BY: [place] [id number] [facility] [id number] Hemoglobin (Bld) [Mass/Vol] 14.4 g/dL Normal 12.5-17.0 [facility] Work Phone: Comment on above: PATIENT NOT FASTINGC linical Information: ADD DRAW FEE [id number] ADD J 77924 PERFORMED BY: [place] [id number] [facility] [id number] Lymphocytes (Bld) [#/Vol] 1.6 {x10E3/uL} Normal 0.7-4.5 [facility] Work Phone: Comment on above: PATIENT NOT FASTINGC linical Information: ADD DRAW FEE [id number] [place] J 74405 PERFORMED BY: [address] [id number] Lymphocytes (Bld) [#/Vol] 1.6 10*3/uL Normal 0.7-4.5 [facility]; [facility] Work Phone: Comment on above: PATIENT NOT FASTINGC linical Information: ADD DRAW FEE [id number] ADD J 67306 PERFORMED BY: MINE [place] [id number] [facility] [id number] Lymphocytes/100 WBC (Bld) 14 % Normal 14-46 [facility] Work Phone: Comment on above: PATIENT NOT FASTINGC linical Information: ADD DRAW FEE 274434 ADD J 60364 PERFORMED BY: MINE [address] [id number] MCH (RBC) [Entitic mass] 28.3 pg Normal 27.0-34.0 [facility] Work Phone: Comment on above: PATIENT NOT FASTINGC linical Information: ADD DRAW FEE [id number] ADD J 58326 PERFORMED BY: MINE [address] [id number] MCHC (RBC) [Mass/Vol] 34.1 g/dL Normal 32.0-36.0 [facility] Work Phone: Comment on above: PATIENT NOT FASTINGC linical Information: ADD DRAW FEE [id number] ADD J 21710 PERFORMED BY: MINE [address] [id number] MCV (RBC) [Entitic vol] 83 fL Normal 80-98 [facility] Work Phone: Comment on above: PATIENT NOT FASTINGC linical Information: ADD DRAW FEE [id number] ADD J 67457 PERFORMED BY: MINE [address] [id number] Monocytes (Bld) [#/Vol] 0.9 {x10E3/uL} Normal 0.1-1.0 [facility] Work Phone: Comment on above: PATIENT NOT FASTINGC linical Information: ADD DRAW FEE 120910 ADD J 99602 PERFORMED BY: [address] [id number] Monocytes (Bld) [#/Vol] 0.9 10*3/uL Normal 0.1-1.0 [facility]; [facility] Work Phone: Comment on above: PATIENT NOT FASTINGC linical Information: ADD DRAW FEE 315390 ADD J 19176 PERFORMED BY: [facility]6370 [facility] [id number] Monocytes/100 WBC (Bld) 8 % Normal 4-13 [facility] Work Phone: Comment on above: PATIENT NOT FASTINGC linical Information: ADD DRAW FEE [id number] ADD J 27996 PERFORMED BY: [place] [id number] [facility] [id number] Neutrophils (Bld) [#/Vol] 8.7 {x10E3/uL} Abnormal 1.8-7.8 [facility] Work Phone: Comment on above: PATIENT NOT FASTINGC linical Information: ADD DRAW FEE 228084 ADD J 20427 PERFORMED BY: [place] [id number] [facility] [id number] Neutrophils (Bld) [#/Vol] 8.7 10*3/uL Abnormal 1.8-7.8 [facility]; [facility] Work Phone: Comment on above: PATIENT NOT FASTINGC linical Information: ADD DRAW FEE 158355 ADD J [id number] PERFORMED BY: [place] [id number] [facility] [id number] Neutrophils/100 WBC (Bld) 77 % Abnormal 40-74 [facility] Work Phone: Comment on above: PATIENT NOT FASTINGC linical Information: ADD DRAW FEE [id number] ADD J [id number] PERFORMED BY: [facility] [id number] Platelets (Bld) [#/Vol] 342 {x10E3/uL} Normal 140-415 [facility] Work Phone: Comment on above: Effective March 17, 2009, the reference interval for Platelet Count, will be changing to: . 0 - 7 days 150 - 381 8 - 30 days 150 - 477 31- 90 days 150 - 579 91 days - up 1 year 150 - 496 1 - 7 years 150 - 440 8 - 17 years 150 - 349 Adult 140 - 415 PATIENT NOT FASTINGC linical Information: ADD DRAW FEE [id number] ADD J [id number] PERFORMED BY: [facility]6[address] [facility] [id number] Platelets (Bld) [#/Vol] 342 10*3/uL Normal 140-415 [facility]; [facility] Work Phone: Comment on above: Effective March 17, 2009, the reference interval for Platelet Count, will be changing to: . 0 - 7 days 150 - 381 8 - 30 days 150 - 477 31- 90 days 150 - 579 91 days - up 1 year 150 - 496 1 - 7 years 150 - 440 8 - 17 years 150 - 349 Adult 140 - 415 PATIENT NOT FASTINGC linical Information: ADD DRAW FEE [id number] ADD J [id number] PERFORMED BY: [facility]6[address] [facility] [id number] RBC (Bld) [#/Vol] 5.11 {x10E6/uL} Normal 4.10-5.60 [facility] Internal Medicine Work Phone: Comment on above: PATIENT NOT FASTINGC linical Information: ADD DRAW FEE [id number] ADD J [id number] PERFORMED BY: [facility]6370 [facility] [id number] RBC (Bld) [#/Vol] 5.11 10*6/uL Normal 4.10-5.60 [facility] Internal Medicine; [facility] Work Phone: Comment on above: PATIENT NOT FASTINGC linical Information: ADD DRAW FEE [id number] ADD J [id number] PERFORMED BY: [facility]6[address] [facility] [id number] WBC (Bld) [#/Vol] 11.3 {x10E3/uL} Abnormal 4.0-10.5 [facility] Internal Medicine Work Phone: Comment on above: PATIENT NOT FASTINGC linical Information: ADD DRAW FEE [id number] ADD J [id number] PERFORMED BY: [facility]6[address] [facility] [id number] WBC (Bld) [#/Vol] 11.3 10*3/uL Abnormal 4.0-10.5 [facility] ensive Internal Medicine; [facility] Work Phone: Comment on above: PATIENT NOT FASTINGC linical Information: ADD DRAW FEE [id number] ADD J 30064 PERFORMED BY: MINE Mac[address]Dublin [place] [id number] LIPASE (10006)Ordered By: Jaclyn Sultana on 03-12-2009 Lipase [Catalytic activity/Vol] 30 U/L Normal 0-59 [facility] Work Phone: Comment on above: PATIENT NOT FASTINGP ERFORMED BY: MINE LabKelsi OrrTyfkum5324 [address] Roadblin [place] [id number] Metabolic Panel, Comprehensi ve (97997)Ordered By: Hollie Sultana on 03-12-2009 Albumin [Mass/Vol] 4.5 g/dL Normal 3.5-5.5 [facility] Internal Medicine Work Phone: Comment on above: PATIENT NOT FASTINGP ERFORMED BY: MINE Orrlin[address] [facility] [id number] Albumin/Globulin [Mass ratio] 1.5 {ratio} Normal 1.1-2.5 [facility] Work Phone: Comment on above: PATIENT NOT FASTINGP ERFORMED BY: MINE Orrlin[address] [facility] [place] [id number] ALP [Catalytic activity/Vol] 102 [iU]/L Normal 25-150 [facility] Work Phone: Comment on above: PATIENT NOT FASTINGP ERFORMED BY: MINE LabKelsi OrrSuwvkj[address] [facility] [id number] ALP [Catalytic activity/Vol] 102 U/L Normal 25-150 [facility]; [facility] Work Phone: Comment on above: PATIENT NOT FASTINGP ERFORMED BY: MINE LabKelsi OrrOpaftu[address] [facility] [place] [id number] ALT [Catalytic activity/Vol] 39 [iU]/L Normal 0-55 [facility] Work Phone: Comment on above: PATIENT NOT FASTINGP ERFORMED BY: MINE Orrlin[address] RoadDublin [place] [id number] ALT [Catalytic activity/Vol] 39 U/L Normal 0-55 [facility]; [facility] Work Phone: Comment on above: PATIENT NOT FASTINGP ERFORMED BY: CB [facility] Ncquxk1057 [address] RoadDublin [place] [id number] AST [Catalytic activity/Vol] 23 [iU]/L Normal 0-40 [facility] Work Phone: Comment on above: PATIENT NOT FASTINGP ERFORMED BY: CB [facility] Unorib4477 [address] RoadDublin [place] [id number] AST [Catalytic activity/Vol] 23 U/L Normal 0-40 [facility]; [facility] Work Phone: Comment on above: PATIENT NOT FASTINGP ERFORMED BY: Lab[facility] Fuiaky58[address] RoadDublin [place] [id number] Bilirubin [Mass/Vol] 0.5 mg/dL Normal 0.1-1.2 Comp rehensive Internal Medicine Work Phone: Comment on above: PATIENT NOT FASTINGP ERFORMED BY: [facility] Mkrlxk6745 [address] RoadDublin [place] [id number] Calcium [Mass/Vol] 10.5 mg/dL Normal 8.5-10.6 [facility] Internal Medicine Work Phone: Comment on above: PATIENT NOT FASTINGP ERFORMED BY: [facility] Rpcbze6541 [address] RoadDublin [place] [id number] Chloride [Moles/Vol] 101 mmol/L Normal 97-108 [facility] Work Phone: Comment on above: PATIENT NOT FASTINGP ERFORMED BY: CB [facility] Cmezsd2993 [address] RoadDublin [place] [id number] CO2 [Moles/Vol] 26 mmol/L Normal 20-32 Comprehen [facility] Internal Medicine Work Phone: Comment on above: PATIENT NOT FASTINGP ERFORMED BY: CB [facility] Ktwlgs0911 [address] RoadDublin [place] [id number] Creatinine [Mass/Vol] 0.90 mg/dL Normal 0.76-1.27 [facility] Work Phone: Comment on above: PATIENT NOT FASTINGP ERFORMED BY: MINE Patrick Mac6370 [facility] [id number] GFR/1.73 sq M predicted among blacks MDRD (S/P/Bld) [Vol rate/Area] mL/min/{1.73_m2} Normal [facility] Work Phone: Comment on above: Note: Persistent red uction for 3 months or more in an eGFR<60 mL/min/1.73 m2 defines CKD. Patients with eGFR values>/=60 mL/min/1.73 m2 may also have CKD if evidence of persistentproteinuria is present. Additional information may be found [email or web address]. PATIENT NOT FASTINGP ERFORMED BY: MINE Maryam Ddhuyc6652 [facility] [id number] GFR/1.73 sq M.predicted MDRD (S/P/Bld) [Vol rate/Area] mL/min/{1.73_m2} Normal [facility] Work Phone: Comment on above: PATIENT NOT FASTINGP ERFORMED BY: MINE Maryamdayton Hlnunp9219 [facility] [id number] Globulin (S) [Mass/Vol] 3.1 g/dL Normal 1.5-4.5 [facility] Internal Medicine Work Phone: Comment on above: PATIENT NOT FASTINGP ERFORMED BY: MINE LabCo Toxzol0455 [facility] [id number] Glucose [Mass/Vol] 94 mg/dL Normal 65-99 [facility] Internal Medicine Work Phone: Comment on above: PATIENT NOT FASTINGP ERFORMED BY: MINE [facility] Jxipsf9049 [facility] [id number] Potassium [Moles/Vol] 4.0 mmol/L Normal 3.5-5.2 [facility] Internal Medicine Work Phone: Comment on above: PATIENT NOT FASTINGP ERFORMED BY: MINE [facility] [id number] [address] RoadDublin [place] [id number] Protein [Mass/Vol] 7.6 g/dL Normal 6.0-8.5 [facility] Internal Medicine Work Phone: Comment on above: PATIENT NOT FASTINGP ERFORMED BY: CB [facility] Uosplv4886 [address] RoadDublin [place] [id number] Sodium [Moles/Vol] 139 mmol/L Normal 135-145 [facility] Internal Medicine Work Phone: Comment on above: PATIENT NOT FASTINGP ERFORMED BY: CB [facility] Fabgwm0409 [address] RoadDublin [place] [id number] Urea nitrogen [Mass/Vol] 13 mg/dL Normal 5- [facility] Work Phone: Comment on above: PATIENT NOT FASTINGP ERFORMED BY: CB [facility] Ecgctl6103 [address] RoadDublin [place] [id number] Urea nitrogen/Creatinine [Mass ratio] 14 mg/mg Normal 8- [facility] Work Phone: Comment on above: PATIENT NOT FASTINGP ERFORMED BY: CB [facility] Rmdlxm5891 [address] RoadDublin [place] [id number] Urinalysis, Office ([id number])Or dered By: Danna Miller on 03-12-2009 Bilirubin Ql (U) Small Normal Comprehe nsive Internal Medicine Work Phone: Glucose Test strip (U) [Mass/Vol] Negative Normal [facility] Work Phone: Glucose Test strip (U) [Mass/Vol] Negative Normal [facility]; [facility] Work Phone: Hemoglobin Ql (U) Negative Normal Compreh ensive Internal Medicine Work Phone: Hemoglobin Ql (U) Negative Normal Compreh ensive Internal Medicine; [facility] Work Phone: Ketones Ql (U) Small Normal Comprehens [facility] Work Phone: Leukocyte esterase Test strip Ql (U) Trace Normal [facility] Work Phone: Comment on above: aw Nitrite Ql (U) Negative Normal Comprehens [facility] Work Phone: Nitrite Ql (U) Negative Normal Comprehens [facility]; [facility] Work Phone: pH (U) 6.0 [pH] Normal [facility] Work Phone: Protein Ql (U) 30 mg/dL Normal Comprehens [facility] Work Phone: Specific gravity (U) [Rel density] 1.025 1 Normal [facility] Work Phone: Urobilinogen (24H U) [Mass/Time] Normal Normal [facility] Work Phone: Rapid Flu (16544 x 2)Ordered By: Tuyet Kyle on 03-10-2009 FLUAV Ag IA Ql (Throat) Negative Normal [facility] Work Phone: FLUAV Ag IA Ql (Throat) Negative Normal [facility]; [facility] Work Phone: Vital Signs Date Time Vital Sign Value Performing Clinician Facility 05-25-2024 08:09-0400 Body mass index (BMI) [Ratio] 30.38 kg/m2 Estela Day PA-C Work Phone: [facility] 05-25-2024 08:09-0400 Body weight 88 kg Estela Day PA-C Work Phone: [facility] 05-25-2024 08:09-0400 Diastolic blood pressure 70 mm[Hg] Estela Day PA-C Work Phone: [facility] 05-25-2024 08:09-0400 Heart rate 101 /min Estela Day PA-C Work Phone: [facility] 05-25-2024 08:09-0400 Respiratory rate 18 /min Estela Day PA-C Work Phone: [facility] 05-25-2024 08:09-0400 SaO2% (BldA) [Mass fraction] 99 % Estela Day PA-C Work Phone: [facility] 05-25-2024 08:09-0400 Systolic blood pressure 123 mm[Hg] Estela Day PA-C Work Phone: [facility] 05-02-2024 17:37-0400 Body mass index (BMI) [Ratio] 30.18 kg/m2 [facility] SANDBLASTING SUPERVISOR.ENGINEER FIRST ASSISTANT Work Phone: [facility] 05-02-2024 17:37-0400 Body temperature 97.59 [degF] [facility] SANDBLASTING SUPERVISOR.ENGINEER FIRST ASSISTANT Work Phone: [facility] 05-02-2024 17:37-0400 Body weight 87.4 kg [facility] SANDBLASTING SUPERVISOR.ENGINEER FIRST ASSISTANT Work Phone: [facility] 05-02-2024 17:37-0400 Diastolic blood pressure 88 mm[Hg] [facility] SANDBLASTING SUPERVISOR.ENGINEER FIRST ASSISTANT Work Phone: [facility] 05-02-2024 17:37-0400 Heart rate 96 /min [facility] SANDBLASTING SUPERVISOR.ENGINEER FIRST ASSISTANT Work Phone: [facility] 05-02-2024 17:37-0400 Respiratory rate 18 /min [facility] SANDBLASTING SUPERVISOR.ENGINEER FIRST ASSISTANT Work Phone: [facility] 05-02-2024 17:37-0400 SaO2% (BldA) [Mass fraction] 98 % [facility] SANDBLASTING SUPERVISOR.ENGINEER FIRST ASSISTANT Work Phone: [facility] 05-02-2024 17:37-0400 Systolic blood pressure 160 mm[Hg] [facility] SANDBLASTING SUPERVISOR.ENGINEER FIRST ASSISTANT Work Phone: [facility] 04-04-2024 08:05-0400 Body height 170.2 cm Dawit Hernandez MD Work Phone: [facility] 04-04-2024 08:05-0400 Body mass index (BMI) [Ratio] 30.54 kg/m2 Dawit Hernandez MD Work Phone: [facility] 04-04-2024 08:05-0400 Body temperature 97.39 [degF] Dawit Hernandez MD Work Phone: [facility] 04-04-2024 08:05-0400 Body weight 88.45 kg Dawit Hernandez MD Work Phone: [facility] 04-04-2024 08:05-0400 Diastolic blood pressure 74 mm[Hg] Dawit Hernandez MD Work Phone: [facility] 04-04-2024 08:05-0400 Heart rate 101 /min Dawit Hernandez MD Work Phone: [facility] 04-04-2024 08:05-0400 Respiratory rate 20 /min Dawit Hernandez MD Work Phone: [facility] 04-04-2024 08:05-0400 SaO2% (BldA) [Mass fraction] 99 % Dawit Hernandez MD Work Phone: [facility] 04-04-2024 08:05-0400 Systolic blood pressure 124 mm[Hg] Dawit Hernandez MD Work Phone: [facility] 02-07-2024 08:17-0400 Body height 170.2 cm Estela PEPE-C Work Phone: [facility] 02-07-2024 08:17-0400 Body temperature 97.3 [degF] Estela Day PA-C Work Phone: [facility] 02-07-2024 08:17-0400 Body weight 88.91 kg Estela PEPE-C Work Phone: [facility] 02-07-2024 08:17-0400 Diastolic blood pressure 73 mm[Hg] Estela Day PA-C Work Phone: [facility] 02-07-2024 08:17-0400 Heart rate 84 /min Estela Day PA-C Work Phone: [facility] 02-07-2024 08:17-0400 Respiratory rate 20 /min Estela Day PA-C Work Phone: [facility] 02-07-2024 08:17-0400 SaO2% (BldA) [Mass fraction] 99 % Estela Day PA-C Work Phone: [facility] 02-07-2024 08:17-0400 Systolic blood pressure 139 mm[Hg] Estela Day PA-C Work Phone: [facility] 12-27-2023 08:26-0500 Body height 170.2 cm Estela PEPE-C Work Phone: [facility] 12-27-2023 08:26-0500 Body temperature 97.5 [degF] Estela Day PA-C Work Phone: [facility] 12-27-2023 08:26-0500 Body weight 88.91 kg Estela Day PA-C Work Phone: [facility] 12-27-2023 08:26-0500 Diastolic blood pressure 76 mm[Hg] Estela Day PA-C Work Phone: [facility] 12-27-2023 08:26-0500 Heart rate 93 /min Estela Day PA-C Work Phone: [facility] 12-27-2023 08:26-0500 Respiratory rate 20 /min Estela Day PA-C Work Phone: [facility] 12-27-2023 08:26-0500 SaO2% (BldA) [Mass fraction] 97 % Estela Day PA-C Work Phone: [facility] 12-27-2023 08:26-0500 Systolic blood pressure 125 mm[Hg] Estela Day PA-C Work Phone: [facility] 10-05-2023 08:03-0500 Body temperature 97.2 [degF] Estela Day PA-C Work Phone: [facility] 10-05-2023 08:03-0500 Diastolic blood pressure 77 mm[Hg] Estela Day PA-C Work Phone: [facility] 10-05-2023 08:03-0500 Heart rate 120 /min Estela Day PA-C Work Phone: [facility] 10-05-2023 08:03-0500 Respiratory rate 18 /min Estela Day PA-C Work Phone: [facility] 10-05-2023 08:03-0500 SaO2% (BldA) [Mass fraction] 98 % Estela Day PA-C Work Phone: [facility] 10-05-2023 08:03-0500 Systolic blood pressure 120 mm[Hg] Estela Day PA-C Work Phone: [facility] 07-13-2023 08:23-0400 Body temperature 97.81 [degF] Estela Day PA-C Work Phone: [facility] 07-13-2023 08:23-0400 Diastolic blood pressure 79 mm[Hg] Estela Day PA-C Work Phone: [facility] 07-13-2023 08:23-0400 Heart rate 108 /min Estela Day PA-C Work Phone: [facility] 07-13-2023 08:23-0400 Respiratory rate 18 /min Estela Day PA-C Work Phone: [facility] 07-13-2023 08:23-0400 SaO2% (BldA) [Mass fraction] 98 % Estela Day PA-C Work Phone: [facility] 07-13-2023 08:23-0400 Systolic blood pressure 114 mm[Hg] Estela Day PA-C Work Phone: [facility] 06-01-2023 08:10-0400 Body temperature 96.6 [degF] Estela Day PA-C Work Phone: [facility] 06-01-2023 08:10-0400 Diastolic blood pressure 74 mm[Hg] Estela Day PA-C Work Phone: [facility] 06-01-2023 08:10-0400 Heart rate 90 /min Estela Day PA-C Work Phone: [facility] 06-01-2023 08:10-0400 Respiratory rate 18 /min Estela Day PA-C Work Phone: [facility] 06-01-2023 08:10-0400 SaO2% (BldA) [Mass fraction] 98 % Estela Day PA-C Work Phone: [facility] 06-01-2023 08:10-0400 Systolic blood pressure 121 mm[Hg] Estela Day PA-C Work Phone: [facility] 04-20-2023 08:33-0400 Body height 170.2 cm Dawit Hernandez MD Work Phone: [facility] 04-20-2023 08:33-0400 Body temperature 97.11 [degF] Dawit Hernandez MD Work Phone: [facility] 04-20-2023 08:33-0400 Body weight 85.28 kg Dawit Hernandez MD Work Phone: [facility] 04-20-2023 08:33-0400 Diastolic blood pressure 69 mm[Hg] Dawit Henrandez MD Work Phone: [facility] 04-20-2023 08:33-0400 Heart rate 98 /min Dawit Hernandez MD Work Phone: [facility] 04-20-2023 08:33-0400 SaO2% (BldA) [Mass fraction] 98 % Dawit Hernandez MD Work Phone: [facility] 04-20-2023 08:33-0400 Systolic blood pressure 104 mm[Hg] Dawit Hernandez MD Work Phone: [facility] 03-09-2023 08:07-0400 Body height 170.2 cm Dawit Hernandez MD Work Phone: [facility] 03-09-2023 08:07-0400 Body temperature 97.81 [degF] Dawit Hernandez MD Work Phone: [facility] 03-09-2023 08:07-0400 Body weight 85.28 kg Dawit Hernandez MD Work Phone: [facility] 03-09-2023 08:07-0400 Diastolic blood pressure 70 mm[Hg] Dawit Hernandez MD Work Phone: [facility] 03-09-2023 08:07-0400 Heart rate 98 /min Dawit Hernandez MD Work Phone: [facility] 03-09-2023 08:07-0400 Respiratory rate 20 /min Dawit Hernandez MD Work Phone: [facility] 03-09-2023 08:07-0400 SaO2% (BldA) [Mass fraction] 99 % Dawit Hernandez MD Work Phone: [facility] 03-09-2023 08:07-0400 Systolic blood pressure 117 mm[Hg] Dawit Hernandez MD Work Phone: [facility] 01-26-2023 08:04-0400 Diastolic blood pressure 68 mm[Hg] Dawit Hernandez MD Work Phone: [facility] 01-26-2023 08:04-0400 Heart rate 116 /min Dawit Hernandez MD Work Phone: [facility] 01-26-2023 08:04-0400 Systolic blood pressure 121 mm[Hg] Dawit Hernandez MD Work Phone: [facility] 01-26-2023 08:01-0400 Body height 170.2 cm Dawit Hernandez MD Work Phone: [facility] 01-26-2023 08:01-0400 Body temperature 97.2 [degF] Dawit Hernandez MD Work Phone: [facility] 01-26-2023 08:01-0400 Body weight 89.36 kg Dawit Hernandez MD Work Phone: [facility] 01-26-2023 08:01-0400 Respiratory rate 20 /min Dawit Hernandez MD Work Phone: [facility] 01-26-2023 08:01-0400 SaO2% (BldA) [Mass fraction] 97 % Dawit Hernandez MD Work Phone: [facility] 12-14-2022 08:14-0500 Body height 170.2 cm Estela Day PA-C Work Phone: [facility] 12-14-2022 08:14-0500 Body temperature 97 [degF] Estela Day PA-C Work Phone: [facility] 12-14-2022 08:14-0500 Body weight 89.81 kg Estela Day PA-C Work Phone: [facility] 12-14-2022 08:14-0500 Diastolic blood pressure 75 mm[Hg] Estela Day PA-C Work Phone: [facility] 12-14-2022 08:14-0500 Heart rate 128 /min Estela Day PA-C Work Phone: [facility] 12-14-2022 08:14-0500 Respiratory rate 20 /min Estela Day PA-C Work Phone: [facility] 12-14-2022 08:14-0500 SaO2% (BldA) [Mass fraction] 97 % Estela Day PA-C Work Phone: [facility] 12-14-2022 08:14-0500 Systolic blood pressure 126 mm[Hg] Estela Day PA-C Work Phone: [facility] 11-02-2022 08:01-0500 Body height 170.2 cm Estela Day PA-C Work Phone: [facility] 11-02-2022 08:01-0500 Body temperature 97.7 [degF] Estela Day PA-C Work Phone: [facility] 11-02-2022 08:01-0500 Body weight 89.36 kg Estela Day PA-C Work Phone: [facility] 11-02-2022 08:01-0500 Diastolic blood pressure 75 mm[Hg] Estela Day PA-C Work Phone: [facility] 11-02-2022 08:01-0500 Heart rate 103 /min Estela Day PA-C Work Phone: [facility] 11-02-2022 08:01-0500 Respiratory rate 20 /min Estela Day PA-C Work Phone: [facility] 11-02-2022 08:01-0500 SaO2% (BldA) [Mass fraction] 98 % Estela Day PA-C Work Phone: [facility] 11-02-2022 08:01-0500 Systolic blood pressure 127 mm[Hg] Estela Day PA-C Work Phone: [facility] 06-28-2022 08:22-0400 Body height 170.2 cm Estela Day PA-C Work Phone: [facility] 06-28-2022 08:22-0400 Body temperature 97.3 [degF] Estela Day PA-C Work Phone: [facility] 06-28-2022 08:22-0400 Body weight 90.27 kg Estela Day PA-C Work Phone: [facility] 06-28-2022 08:22-0400 Diastolic blood pressure 73 mm[Hg] Estela Day PA-C Work Phone: [facility] 06-28-2022 08:22-0400 Heart rate 109 /min Estela Day PA-C Work Phone: [facility] 06-28-2022 08:22-0400 Respiratory rate 20 /min Estela Day PA-C Work Phone: [facility] 06-28-2022 08:22-0400 SaO2% (BldA) [Mass fraction] 96 % Estela Day PA-C Work Phone: [facility] 06-28-2022 08:22-0400 Systolic blood pressure 112 mm[Hg] Estela Day PA-C Work Phone: [facility] 05-17-2022 08:52-0400 Body height 170.2 cm Estela Day PA-C Work Phone: [facility] 05-17-2022 08:52-0400 Body temperature 97.3 [degF] Estela Day PA-C Work Phone: [facility] 05-17-2022 08:52-0400 Body weight 89.81 kg Estela Day PA-C Work Phone: [facility] 05-17-2022 08:52-0400 Diastolic blood pressure 81 mm[Hg] Estela Day PA-C Work Phone: [facility] 05-17-2022 08:52-0400 Heart rate 96 /min Estela Day PA-C Work Phone: [facility] 05-17-2022 08:52-0400 Respiratory rate 20 /min Estela Day PA-C Work Phone: [facility] 05-17-2022 08:52-0400 SaO2% (BldA) [Mass fraction] 97 % Estela Day PA-C Work Phone: [facility] 05-17-2022 08:52-0400 Systolic blood pressure 128 mm[Hg] Estela Day PA-C Work Phone: [facility] 03-08-2022 08:20-0400 Body height 170.2 cm Dawit Hernandez MD Work Phone: [facility] 03-08-2022 08:20-0400 Body temperature 97.7 [degF] Dawit Hernandez MD Work Phone: [facility] 03-08-2022 08:20-0400 Body weight 88.45 kg Dawit Hernandez MD Work Phone: [facility] 03-08-2022 08:20-0400 Diastolic blood pressure 71 mm[Hg] Dawit Hernandez MD Work Phone: [facility] 03-08-2022 08:20-0400 Heart rate 100 /min Dawit Hernandez MD Work Phone: [facility] 03-08-2022 08:20-0400 Respiratory rate 18 /min Dawit Hernandez MD Work Phone: [facility] 03-08-2022 08:20-0400 Systolic blood pressure 129 mm[Hg] Dawit Hernandez MD Work Phone: [facility] 07-19-2011 11:55-0400 BMI (Body Mass Index) 33.56 kg/m2 Patricia Ash RN [facility] Work Phone: 07-19-2011 11:55-0400 Body Temperature 97.8 [degF] Patricia Ash RN [facility] Work Phone: Comment on above: Method: Oral 07-19-2011 11:55-0400 Body weight 98.66 kg Patricia Ash RN [facility] Work Phone: 07-19-2011 11:55-0400 BP Diastolic 80 mm[Hg] Patricia Ash RN [facility] Work Phone: Comment on above: Patient Position: Sitting; Cuff Location : Left Arm; Cuff Size: Large 07-19-2011 11:55-0400 BP Systolic 120 mm[Hg] Patricia Ash RN [facility] Work Phone: Comment on above: Patient Position: Sitting; Cuff Location : Left Arm; Cuff Size: Large 07-19-2011 11:55-0400 BSA (Body Surface Area) 2.11 m2 Patricia Ash RN [facility] Work Phone: 07-19-2011 11:55-0400 Height 171.45 cm Patricia Ash RN [facility] Work Phone: 07-19-2011 11:55-0400 Pulse (Heart Rate) 80 /min Patricia sAh RN [facility] Work Phone: Comment on above: Pattern: Regular 07-19-2011 11:55-0400 Respiratory Rate 20 /min Patricia Ash RN [facility] Work Phone: Comment on above: Pattern: Unlabored 03-14-2011 09:20-0400 BMI (Body Mass Index) 34.16 kg/m2 Manisha iRbera RN [facility] Work Phone: 03-14-2011 09:20-0400 Body Temperature 97.8 [degF] Manisha Ribera RN [facility] Work Phone: Comment on above: Method: Oral 03-14-2011 09:20-0400 Body weight 100.42 kg Manisha Ribera RN [facility] Work Phone: 03-14-2011 09:20-0400 BP Diastolic 72 mm[Hg] Manisha Ribera RN [facility] Work Phone: Comment on above: Patient Position: Sitting; Cuff Location : Left Arm; Cuff Size: Standard 03-14-2011 09:20-0400 BP Systolic 114 mm[Hg] Manisha Ribera RN [facility] Work Phone: Comment on above: Patient Position: Sitting; Cuff Location : Left Arm; Cuff Size: Standard 03-14-2011 09:20-0400 BSA (Body Surface Area) 2.12 m2 Manisha Ribera RN [facility] Work Phone: 03-14-2011 09:20-0400 Height 171.45 cm Manisha Ribera RN [facility] Work Phone: 03-14-2011 09:20-0400 Pulse (Heart Rate) 68 /min Manisha Ribera RN [facility] Work Phone: Comment on above: Pattern: Regular 03-14-2011 09:20-0400 Respiratory Rate 16 /min Manisha Ribera RN [facility] Work Phone: Comment on above: Pattern: Unlabored 03-13-2011 13:43-0400 BMI (Body Mass Index) 34.16 kg/m2 Afsaneh Nelida DO Work Phone: [facility] Work Phone: 03-13-2011 13:43-0400 Body Temperature 98 [degF] Afsaneh Nelida DO Work Phone: [facility] Work Phone: Comment on above: Method: Oral 03-13-2011 13:43-0400 Body weight 100.42 kg Afsaneh Nelida DO Work Phone: [facility] Work Phone: 03-13-2011 13:43-0400 BP Diastolic 84 mm[Hg] Afsaneh Nelida DO Work Phone: [facility] Work Phone: Comment on above: Patient Position: Sitting 03-13-2011 13:43-0400 BP Systolic 116 mm[Hg] Afsaneh Nelida DO Work Phone: [facility] Work Phone: Comment on above: Patient Position: Sitting 03-13-2011 13:43-0400 BSA (Body Surface Area) 2.12 m2 Afsaneh Nelida DO Work Phone: [facility] Work Phone: 03-13-2011 13:43-0400 Height 171.45 cm Afsaneh Nelida DO Work Phone: [facility] Work Phone: 03-13-2011 13:43-0400 Pulse (Heart Rate) 72 /min Afsaneh Nelida DO Work Phone: [facility] Work Phone: Comment on above: Pattern: Regular 03-13-2011 13:43-0400 Respiratory Rate 15 /min Afsaneh Nelida DO Work Phone: [facility] Work Phone: Comment on above: Pattern: Unlabored 03-12-2011 09:27-0400 BMI (Body Mass Index) 34.16 kg/m2 Patricia Ash RN [facility] Work Phone: 03-12-2011 09:27-0400 Body weight 100.42 kg Patricia Ash RN [facility] Work Phone: 03-12-2011 09:27-0400 BP Diastolic 78 mm[Hg] Patricia Ash RN [facility] Work Phone: Comment on above: Patient Position: Sitting; Cuff Location : Left Arm; Cuff Size: Large 03-12-2011 09:27-0400 BP Systolic 122 mm[Hg] Patricia Ash RN [facility] Work Phone: Comment on above: Patient Position: Sitting; Cuff Location : Left Arm; Cuff Size: Large 03-12-2011 09:27-0400 BSA (Body Surface Area) 2.12 m2 Patricia Ash RN [facility] Work Phone: 03-12-2011 09:27-0400 Height 171.45 cm Patricia Ash RN [facility] Work Phone: 03-12-2011 09:27-0400 Pulse (Heart Rate) 64 /min Patricia Ash RN [facility] Work Phone: Comment on above: Pattern: Regular 03-12-2011 09:27-0400 Respiratory Rate 20 /min Patricia Ash RN [facility] Work Phone: Comment on above: Pattern: Unlabored 03-11-2011 09:48-0400 BMI (Body Mass Index) 34.16 kg/m2 Patricia Ash RN [facility] Work Phone: 03-11-2011 09:48-0400 Body weight 100.42 kg Patricia Ash RN [facility] Work Phone: 03-11-2011 09:48-0400 BP Diastolic 78 mm[Hg] Patricia Ash RN [facility] Work Phone: Comment on above: Patient Position: Sitting; Cuff Location : Left Arm; Cuff Size: Large 03-11-2011 09:48-0400 BP Systolic 122 mm[Hg] Patricia Ash RN [facility] Work Phone: Comment on above: Patient Position: Sitting; Cuff Location : Left Arm; Cuff Size: Large 03-11-2011 09:48-0400 BSA (Body Surface Area) 2.12 m2 Patricia Ash RN [facility] Work Phone: 03-11-2011 09:48-0400 Height 171.45 cm Patricia Ash RN [facility] Work Phone: 03-11-2011 09:48-0400 Pulse (Heart Rate) 68 /min Patricia Ash RN [facility] Work Phone: Comment on above: Pattern: Regular 03-11-2011 09:48-0400 Respiratory Rate 20 /min Patricia Ash RN [facility] Work Phone: Comment on above: Pattern: Unlabored 03-10-2011 12:02-0400 BMI (Body Mass Index) 34.16 kg/m2 Patricia Ash RN [facility] Work Phone: 03-10-2011 12:02-0400 Body weight 100.42 kg Patricia Ash RN [facility] Work Phone: 03-10-2011 12:02-0400 BP Diastolic 72 mm[Hg] Patricia Ash RN [facility] Work Phone: Comment on above: Patient Position: Sitting; Cuff Location : Left Arm; Cuff Size: Standard 03-10-2011 12:02-0400 BP Systolic 122 mm[Hg] Patricia Ash RN [facility] Work Phone: Comment on above: Patient Position: Sitting; Cuff Location : Left Arm; Cuff Size: Standard 03-10-2011 12:02-0400 BSA (Body Surface Area) 2.12 m2 Patricia Ash RN [facility] Work Phone: 03-10-2011 12:02-0400 Height 171.45 cm Patricia Ash RN [facility] Work Phone: 03-10-2011 12:02-0400 Pulse (Heart Rate) 68 /min Patricia Ash RN [facility] Work Phone: Comment on above: Pattern: Regular 03-10-2011 12:02-0400 Respiratory Rate 20 /min Patricia Ash RN [facility] Work Phone: Comment on above: Pattern: Unlabored 07-30-2009 15:27-0400 BMI (Body Mass Index) 33.79 kg/m2 Patricia Ash RN [facility] Work Phone: 07-30-2009 15:27-0400 Body weight 99.34 kg Patricia Ash RN [facility] Work Phone: 07-30-2009 15:27-0400 BP Diastolic 86 mm[Hg] Patricia Ash RN [facility] Work Phone: Comment on above: Patient Position: Sitting; Cuff Location : Left Arm; Cuff Size: Large 07-30-2009 15:27-0400 BP Systolic 138 mm[Hg] Patricia Ash RN [facility] Work Phone: Comment on above: Patient Position: Sitting; Cuff Location : Left Arm; Cuff Size: Large 07-30-2009 15:27-0400 BSA (Body Surface Area) 2.11 m2 Patricia Ash RN [facility] Work Phone: 07-30-2009 15:27-0400 Head Circumference 0 cm Afsaneh Green [facility] Work Phone: 07-30-2009 15:27-0400 Head Occipital-frontal circumference 0 cm Patricia Ash RN [facility]; [facility] Work Phone: 07-30-2009 15:27-0400 Height 171.45 cm Patricia Ash RN [facility] Work Phone: 07-30-2009 15:27-0400 Pulse (Heart Rate) 72 /min Patricia Ash RN [facility] Work Phone: Comment on above: Pattern: Regular 07-30-2009 15:27-0400 Respiratory Rate 20 /min Patricia Ash RN [facility] Work Phone: Comment on above: Pattern: Unlabored 03-12-2009 15:06-0400 BMI (Body Mass Index) 33.79 kg/m2 Fred Karlosyoselin [facility] Work Phone: 03-12-2009 15:06-0400 Body Temperature 98.2 [degF] [facility] Work Phone: Comment on above: Method: Oral 03-12-2009 15:06-0400 Body weight 99.34 kg Fred [facility] Work Phone: 03-12-2009 15:06-0400 BP Diastolic 78 mm[Hg] Fred [facility] Work Phone: Comment on above: Patient Position: Sitting; Cuff Location : Left Arm; Cuff Size: Standard 03-12-2009 15:06-0400 BP Systolic 112 mm[Hg] Fred [facility] Work Phone: Comment on above: Patient Position: Sitting; Cuff Location : Left Arm; Cuff Size: Standard 03-12-2009 15:06-0400 BSA (Body Surface Area) 2.11 m2 Fred [facility] Work Phone: 03-12-2009 15:06-0400 Head Circumference 0 cm Afsaneh Green [facility] Work Phone: 03-12-2009 15:06-0400 Head Occipital-frontal circumference 0 cm Fred [facility]; [facility] Work Phone: 03-12-2009 15:06-0400 Height 171.45 cm Fred [facility] Work Phone: 03-12-2009 15:06-0400 Pulse (Heart Rate) 82 /min [facility] Work Phone: Comment on above: Pattern: Regular 03-12-2009 15:06-0400 Respiratory Rate 18 /min [facility] Work Phone: Comment on above: Pattern: Unlabored 03-10-2009 08:10-0400 Body Temperature 98.5 [degF] Tuyet [facility] Work Phone: Comment on above: Method: Undefined 03-10-2009 08:10-0400 Body weight 0 kg Tuyet [facility] Work Phone: 03-10-2009 08:10-0400 BP Diastolic 76 mm[Hg] Tuyet [facility] Work Phone: Comment on above: Patient Position: Sitting; Cuff Location : Left Arm; Cuff Size: Large 03-10-2009 08:10-0400 BP Systolic 114 mm[Hg] Tuyet [facility] Work Phone: Comment on above: Patient Position: Sitting; Cuff Location : Left Arm; Cuff Size: Large 03-10-2009 08:10-0400 Head Circumference 0 cm Afsaneh Green [facility] Work Phone: 03-10-2009 08:10-0400 Head Occipital-frontal circumference 0 cm Tuyet Saroj [facility]; [facility] Work Phone: 03-10-2009 08:10-0400 Height 0 cm Tuyet Kyle [facility] Work Phone: 03-10-2009 08:10-0400 Pulse (Heart Rate) 88 /min Tuyet [facility] Work Phone: Comment on above: Pattern: Regular 03-10-2009 08:10-0400 Respiratory Rate 18 /min Tuyet Torresedmund [facility] Work Phone: Comment on above: Pattern: Undefined 03-20-2008 15:47-0400 BMI (Body Mass Index) 33.79 kg/m2 Patricia Ash RN [facility] Work Phone: 03-20-2008 15:47-0400 Body weight 99.34 kg Patricia Ash RN [facility] Work Phone: 03-20-2008 15:47-0400 BP Diastolic 76 mm[Hg] Patricia Ash RN [facility] Work Phone: Comment on above: Patient Position: Sitting; Cuff Location : Right Arm; Cuff Size: Standard 03-20-2008 15:47-0400 BP Systolic 132 mm[Hg] Patricia Ash RN [facility] Work Phone: Comment on above: Patient Position: Sitting; Cuff Location : Right Arm; Cuff Size: Standard 03-20-2008 15:47-0400 BSA (Body Surface Area) 2.11 m2 Patricia Ash RN [facility] Work Phone: 03-20-2008 15:47-0400 Head Circumference 0 cm Afsaneh Green [facility] Work Phone: 03-20-2008 15:47-0400 Head Occipital-frontal circumference 0 cm Patricia Ash RN [facility]; [facility] Work Phone: 03-20-2008 15:47-0400 Height 171.45 cm Patricia Ash RN [facility] Work Phone: 03-20-2008 15:47-0400 Pulse (Heart Rate) 80 /min Patricia Ash RN [facility] Work Phone: Comment on above: Pattern: Regular 03-20-2008 15:47-0400 Respiratory Rate 20 /min Patricia Ash RN [facility] Work Phone: Comment on above: Pattern: Unlabored 12-21-2007 15:42-0500 BMI (Body Mass Index) 33.79 kg/m2 Patricia Ash RN [facility] Work Phone: 12-21-2007 15:42-0500 Body weight 99.34 kg Patricia Ash RN [facility] Work Phone: 12-21-2007 15:42-0500 BP Diastolic 68 mm[Hg] Patricia Ash RN [facility] Work Phone: Comment on above: Patient Position: Sitting; Cuff Location : Left Arm; Cuff Size: Large 12-21-2007 15:42-0500 BP Systolic 118 mm[Hg] Patricia Ash RN [facility] Work Phone: Comment on above: Patient Position: Sitting; Cuff Location : Left Arm; Cuff Size: Large 12-21-2007 15:42-0500 BSA (Body Surface Area) 2.11 m2 Patricia Ash RN [facility] Work Phone: 12-21-2007 15:42-0500 Head Circumference 0 cm Afsaneh Green [facility] Work Phone: 12-21-2007 15:42-0500 Head Occipital-frontal circumference 0 cm Patricia Ash RN [facility]; [facility] Work Phone: 12-21-2007 15:42-0500 Height 171.45 cm Patricia Ash RN [facility] Work Phone: 12-21-2007 15:42-0500 Pulse (Heart Rate) 72 /min Patricia Ash RN [facility] Work Phone: Comment on above: Pattern: Regular 12-21-2007 15:42-0500 Respiratory Rate 20 /min Patricia Ash RN [facility] Work Phone: Comment on above: Pattern: Unlabored 11-15-2007 16:12-0500 BMI (Body Mass Index) 32.47 kg/m2 Patricia Ash RN [facility] Work Phone: 11-15-2007 16:12-0500 Body Temperature 97.3 [degF] Patricia Ash RN [facility] Work Phone: Comment on above: Method: Oral 11-15-2007 16:12-0500 Body weight 95.45 kg Patricia Ash RN [facility] Work Phone: 11-15-2007 16:12-0500 BP Diastolic 82 mm[Hg] Patricia Ash RN [facility] Work Phone: Comment on above: Patient Position: Sitting; Cuff Location : Left Arm; Cuff Size: Standard 11-15-2007 16:12-0500 BP Systolic 120 mm[Hg] Patricia Ash RN [facility] Work Phone: Comment on above: Patient Position: Sitting; Cuff Location : Left Arm; Cuff Size: Standard 11-15-2007 16:12-0500 BSA (Body Surface Area) 2.08 m2 Patricia Ash RN [facility] Work Phone: 11-15-2007 16:12-0500 Head Circumference 0 cm Afsaneh Green [facility] Work Phone: 11-15-2007 16:12-0500 Head Occipital-frontal circumference 0 cm Patricia Ash RN [facility]; [facility] Work Phone: 11-15-2007 16:12-0500 Height 171.45 cm Patricia Ash RN [facility] Work Phone: 11-15-2007 16:12-0500 Pulse (Heart Rate) 74 /min Patricia Ash RN [facility] Work Phone: Comment on above: Pattern: Regular 11-15-2007 16:12-0500 Respiratory Rate 16 /min Patricia Ash RN [facility] Work Phone: Comment on above: Pattern: Unlabored 10-18-2007 15:34-0500 BMI (Body Mass Index) 32.47 kg/m2 Patricia Ash RN [facility] Work Phone: 10-18-2007 15:34-0500 Body weight 95.45 kg Patricia Ash RN [facility] Work Phone: 10-18-2007 15:34-0500 BP Diastolic 62 mm[Hg] Patricia Ash RN [facility] Work Phone: Comment on above: Patient Position: Sitting; Cuff Location : Left Arm; Cuff Size: Standard 10-18-2007 15:34-0500 BP Systolic 118 mm[Hg] Patricia Ash RN [facility] Work Phone: Comment on above: Patient Position: Sitting; Cuff Location : Left Arm; Cuff Size: Standard 10-18-2007 15:34-0500 BSA (Body Surface Area) 2.08 m2 Patricia Ash RN [facility] Work Phone: 10-18-2007 15:34-0500 Head Circumference 0 cm Afsaneh Green [facility] Work Phone: 10-18-2007 15:34-0500 Head Occipital-frontal circumference 0 cm Patricia Ash RN [facility]; [facility] Work Phone: 10-18-2007 15:34-0500 Height 171.45 cm Patricia Ash RN [facility] Work Phone: 10-18-2007 15:34-0500 Pulse (Heart Rate) 80 /min Patricia Ash RN [facility] Work Phone: Comment on above: Pattern: Regular 10-18-2007 15:34-0500 Respiratory Rate 20 /min Patricia Ash RN [facility] Work Phone: Comment on above: Pattern: Unlabored 10-05-2007 11:34-0500 BMI (Body Mass Index) 32.64 kg/m2 Patricia Ash RN [facility] Work Phone: 10-05-2007 11:34-0500 Body weight 95.94 kg Patricia Ash RN [facility] Work Phone: 10-05-2007 11:34-0500 BP Diastolic 78 mm[Hg] Patricia Ash RN [facility] Work Phone: Comment on above: Patient Position: Sitting; Cuff Location : Left Arm; Cuff Size: Standard 10-05-2007 11:34-0500 BP Systolic 118 mm[Hg] Patricia Ash RN [facility] Work Phone: Comment on above: Patient Position: Sitting; Cuff Location : Left Arm; Cuff Size: Standard 10-05-2007 11:34-0500 BSA (Body Surface Area) 2.08 m2 Patricia Ash RN [facility] Work Phone: 10-05-2007 11:34-0500 Head Circumference 0 cm Afsaneh Green [facility] Work Phone: 10-05-2007 11:34-0500 Head Occipital-frontal circumference 0 cm Patricia Ash RN [facility]; [facility] Work Phone: 10-05-2007 11:34-0500 Height 171.45 cm Patricia Ash RN [facility] Work Phone: 10-05-2007 11:34-0500 Pulse (Heart Rate) 80 /min Patricia Ash RN [facility] Work Phone: Comment on above: Pattern: Regular 10-05-2007 11:34-0500 Respiratory Rate 20 /min Patricia Ash RN [facility] Work Phone: Comment on above: Pattern: Unlabored 09-25-2007 12:20-0500 BMI (Body Mass Index) 31.82 kg/m2 Patricia Ash RN [facility] Work Phone: 09-25-2007 12:20-0500 Body weight 93.53 kg Patricia Ash RN [facility] Work Phone: 09-25-2007 12:20-0500 BP Diastolic 62 mm[Hg] Patricia Ash RN [facility] Work Phone: Comment on above: Patient Position: Sitting; Cuff Location : Right Arm; Cuff Size: Standard 09-25-2007 12:20-0500 BP Systolic 118 mm[Hg] Patricia Ash RN [facility] Work Phone: Comment on above: Patient Position: Sitting; Cuff Location : Right Arm; Cuff Size: Standard 09-25-2007 12:20-0500 BSA (Body Surface Area) 2.06 m2 Patricia Ash RN [facility] Work Phone: 09-25-2007 12:20-0500 Head Circumference 0 cm Afsaneh Green [facility] Work Phone: 09-25-2007 12:20-0500 Head Occipital-frontal circumference 0 cm Patricia Ash RN [facility]; [facility] Work Phone: 09-25-2007 12:20-0500 Height 171.45 cm Patricia Ash RN [facility] Work Phone: 09-25-2007 12:20-0500 Pulse (Heart Rate) 80 /min Patricia Ash RN [facility] Work Phone: Comment on above: Pattern: Regular 09-25-2007 12:20-0500 Respiratory Rate 20 /min Patricia Ash RN [facility] Work Phone: Comment on above: Pattern: Unlabored 09-15-2007 09:16-0500 BMI (Body Mass Index) 32.1 kg/m2 [facility] Work Phone: 09-15-2007 09:16-0500 Body Temperature 98.9 [degF] [facility] Work Phone: Comment on above: Method: Oral 09-15-2007 09:16-0500 Body weight 94.35 kg [facility] Work Phone: 09-15-2007 09:16-0500 BP Diastolic 68 mm[Hg] [facility] Work Phone: Comment on above: Patient Position: Sitting; Cuff Location : Right Arm; Cuff Size: Standard 09-15-2007 09:16-0500 BP Systolic 130 mm[Hg] [facility] Work Phone: Comment on above: Patient Position: Sitting; Cuff Location : Right Arm; Cuff Size: Standard 09-15-2007 09:16-0500 BSA (Body Surface Area) 2.07 m2 [facility] Work Phone: 09-15-2007 09:16-0500 Head [facility]umference 0 [facility]: 09-15-2007 09:16-0500 Head Occipital-frontal circumference 0 cm [facility]; [facility] Work Phone: 09-15-2007 09:16-0500 Height 171.45 cm [facility] Work Phone: 09-15-2007 09:16-0500 Pulse (Heart Rate) 84 /min [facility] Work Phone: Comment on above: Pattern: Regular 09-15-2007 09:16-0500 Respiratory Rate 18 /min [facility] Work Phone: Comment on above: Pattern: Unlabored 09-14-2007 11:51-0500 BMI (Body Mass Index) 32.1 kg/m2 Patricia Ash RN [facility] Work Phone: 09-14-2007 11:51-0500 Body weight 94.35 kg Patricia Ash RN [facility] Work Phone: 09-14-2007 11:51-0500 BP Diastolic 70 mm[Hg] Patricia Ash RN [facility] Work Phone: Comment on above: Patient Position: Sitting; Cuff Location : Right Arm; Cuff Size: Standard 09-14-2007 11:51-0500 BP Systolic 118 mm[Hg] Patricia Ash RN [facility] Work Phone: Comment on above: Patient Position: Sitting; Cuff Location : Right Arm; Cuff Size: Standard 09-14-2007 11:51-0500 BSA (Body Surface Area) 2.07 m2 Patricia Ash RN [facility] Work Phone: 09-14-2007 11:51-0500 Head Circumference 0 cm Afsaneh Nelida [facility] Work Phone: 09-14-2007 11:51-0500 Head Occipital-frontal circumference 0 cm Patricia Ash RN [facility]; [facility] Work Phone: 09-14-2007 11:51-0500 Height 171.45 cm Patricia Ash RN [facility] Work Phone: 09-14-2007 11:51-0500 Pulse (Heart Rate) 88 /min Patricia Ash RN [facility] Work Phone: Comment on above: Pattern: Regular 09-14-2007 11:51-0500 Respiratory Rate 16 /min Patricia Ash RN [facility] Work Phone: Comment on above: Pattern: Unlabored 09-13-2007 11:45-0500 Body Temperature 98.2 [degF] [facility] Comment on above: Method: Oral 09-13-2007 11:45-0500 Body weight 0 kg Patti Ambrocio [facility] Work Phone: 09-13-2007 11:45-0500 BP Diastolic 76 mm[Hg] Patti Ambrocio [facility] Work Phone: Comment on above: Patient Position: Sitting; Cuff Location : Right Arm; Cuff Size: Standard 09-13-2007 11:45-0500 BP Systolic 104 mm[Hg] [facility]: Comment on above: Patient Position: Sitting; Cuff Location : Right Arm; Cuff Size: Standard 09-13-2007 11:45-0500 Head Circumference 0 cm Afsaneh Green [facility] Work Phone: 09-13-2007 11:45-0500 Head Occipital-frontal circumference 0 cm Patti Ambrocio [facility]; [facility] Work Phone: 09-13-2007 11:45-0500 Height 0 cm Patti Ambrocio [facility] Work Phone: 09-13-2007 11:45-0500 Pulse (Heart Rate) 84 /min [facility] Comment on above: Pattern: Regular 09-13-2007 11:45-0500 Respiratory Rate 18 /min Patti Ambrocio [facility] Work Phone: Comment on above: Pattern: Unlabored 09-12-2007 12:04-0500 BMI (Body Mass Index) 32.1 kg/m2 Danna Miller [facility] Work Phone: 09-12-2007 12:04-0500 Body Temperature 98.1 [degF] Danna Miller [facility] Work Phone: Comment on above: Method: Oral 09-12-2007 12:04-0500 Body weight 94.35 kg [facility] Medicine Work Phone: 09-12-2007 12:04-0500 BP Diastolic 60 mm[Hg] [facility] Work Phone: Comment on above: Patient Position: Sitting; Cuff Location : Right Arm; Cuff Size: Standard 09-12-2007 12:04-0500 BP Systolic 110 mm[Hg] [facility] Work Phone: Comment on above: Patient Position: Sitting; Cuff Location : Right Arm; Cuff Size: Standard 09-12-2007 12:04-0500 BSA (Body Surface Area) 2.07 m2 [facility] Work Phone: 09-12-2007 12:04-0500 Head Circumference 0 cm Afsaneh Green [facility] Work Phone: 09-12-2007 12:04-0500 Head Occipital-frontal circumference 0 cm [facility]; [facility] Work Phone: 09-12-2007 12:04-0500 Height 171.45 cm [facility] Work Phone: 09-12-2007 12:04-0500 Pulse (Heart Rate) 112 /min [facility] Work Phone: Comment on above: Pattern: Regular 09-12-2007 12:04-0500 Respiratory Rate 18 /min [facility] Work Phone: Comment on above: Pattern: Unlabored 09-11-2007 10:16-0500 BMI (Body Mass Index) 32.1 kg/m2 Patricia Ash RN [facility] Work Phone: 09-11-2007 10:16-0500 Body weight 94.35 kg Patricia Ash RN [facility] Work Phone: 09-11-2007 10:16-0500 BP Diastolic 60 mm[Hg] Patricia Ash RN [facility] Work Phone: Comment on above: Patient Position: Sitting; Cuff Location : Left Arm; Cuff Size: Standard 09-11-2007 10:16-0500 BP Systolic 108 mm[Hg] Patricia Ash RN [facility] Work Phone: Comment on above: Patient Position: Sitting; Cuff Location : Left Arm; Cuff Size: Standard 09-11-2007 10:16-0500 BSA (Body Surface Area) 2.07 m2 Patricia Ash RN [facility] Work Phone: 09-11-2007 10:16-0500 Head Circumference 0 cm Afsaneh Green [facility] Work Phone: 09-11-2007 10:16-0500 Head Occipital-frontal circumference 0 cm Patricia Ash RN [facility]; [facility] Work Phone: 09-11-2007 10:16-0500 Height 171.45 cm Patricia Ash RN [facility] Work Phone: 09-11-2007 10:16-0500 Pulse (Heart Rate) 64 /min Patricia Ash RN [facility] Work Phone: Comment on above: Pattern: Regular 09-11-2007 10:16-0500 Respiratory Rate 16 /min Patricia Ash RN [facility] Work Phone: Comment on above: Pattern: Unlabored 09-08-2007 08:59-0500 BMI (Body Mass Index) 32.1 kg/m2 Patricia Ash RN [facility] Work Phone: 09-08-2007 08:59-0500 Body weight 94.35 kg Patricia Ash RN [facility] Work Phone: 09-08-2007 08:59-0500 BP Diastolic 60 mm[Hg] Patricia Ash RN [facility] Work Phone: Comment on above: Patient Position: Sitting; Cuff Location : Left Arm; Cuff Size: Standard 09-08-2007 08:59-0500 BP Systolic 110 mm[Hg] Patricia Ash RN [facility] Work Phone: Comment on above: Patient Position: Sitting; Cuff Location : Left Arm; Cuff Size: Standard 09-08-2007 08:59-0500 BSA (Body Surface Area) 2.07 m2 Patricia Ash RN [facility] Work Phone: 09-08-2007 08:59-0500 Head Circumference 0 cm Afsaneh Green [facility] Work Phone: 09-08-2007 08:59-0500 Head Occipital-frontal circumference 0 cm Patricia Ash RN [facility]; [facility] Work Phone: 09-08-2007 08:59-0500 Height 171.45 cm Patricia Ash RN [facility] Work Phone: 09-08-2007 08:59-0500 Pulse (Heart Rate) 68 /min Patricia Ash RN [facility] Work Phone: Comment on above: Pattern: Regular 09-08-2007 08:59-0500 Respiratory Rate 16 /min Patricia Ash RN [facility] Work Phone: Comment on above: Pattern: Unlabored 09-07-2007 09:44-0500 BMI (Body Mass Index) 32.1 kg/m2 Patricia Ash RN [facility] Work Phone: 09-07-2007 09:44-0500 Body Temperature 98.3 [degF] Patricia Ash RN [facility] Work Phone: Comment on above: Method: Oral 09-07-2007 09:44-0500 Body weight 94.35 kg Patricia Ash RN [facility] Work Phone: 09-07-2007 09:44-0500 BP Diastolic 58 mm[Hg] Patricia Ash RN [facility] Work Phone: Comment on above: Patient Position: Sitting; Cuff Location : Left Arm; Cuff Size: Standard 09-07-2007 09:44-0500 BP Systolic 110 mm[Hg] Patricia Ash RN [facility] Work Phone: Comment on above: Patient Position: Sitting; Cuff Location : Left Arm; Cuff Size: Standard 09-07-2007 09:44-0500 BSA (Body Surface Area) 2.07 m2 Patricia Ash RN [facility] Work Phone: 09-07-2007 09:44-0500 Head Circumference 0 cm Afsaneh Nelida [facility] Work Phone: 09-07-2007 09:44-0500 Head Occipital-frontal circumference 0 cm Patricia Ash RN [facility]; [facility] Work Phone: 09-07-2007 09:44-0500 Height 171.45 cm Patricia Ash RN [facility] Work Phone: 09-07-2007 09:44-0500 Pulse (Heart Rate) 68 /min Patricia Ash RN [facility] Work Phone: Comment on above: Pattern: Regular 09-07-2007 09:44-0500 Respiratory Rate 16 /min Patricia Ash RN [facility] Work Phone: Comment on above: Pattern: Unlabored 09-06-2007 08:23-0500 BMI (Body Mass Index) 32.1 kg/m2 Patricia Ash RN [facility] Work Phone: 09-06-2007 08:23-0500 Body weight 94.35 kg Patricia Ash RN [facility] Work Phone: 09-06-2007 08:23-0500 BP Diastolic 62 mm[Hg] Patricia Ash RN [facility] Work Phone: Comment on above: Patient Position: Sitting; Cuff Location : Left Arm; Cuff Size: Standard 09-06-2007 08:23-0500 BP Systolic 128 mm[Hg] Patricia Ash RN [facility] Work Phone: Comment on above: Patient Position: Sitting; Cuff Location : Left Arm; Cuff Size: Standard 09-06-2007 08:23-0500 BSA (Body Surface Area) 2.07 m2 Patricia Ash RN [facility] Work Phone: 09-06-2007 08:23-0500 Head Circumference 0 cm Afsaneh Green [facility] Work Phone: 09-06-2007 08:23-0500 Head Occipital-frontal circumference 0 cm Patricia Ash RN [facility]; [facility] Work Phone: 09-06-2007 08:23-0500 Height 171.45 cm Patricia Ash RN [facility] Work Phone: 09-06-2007 08:23-0500 Pulse (Heart Rate) 80 /min Patricia Ash RN [facility] Work Phone: Comment on above: Pattern: Regular 09-06-2007 08:23-0500 Respiratory Rate 16 /min Patricia Ash RN [facility] Work Phone: Comment on above: Pattern: Unlabored 09-05-2007 11:44-0500 Body Temperature 98.4 [degF] Patti Ambrocio [facility] Work Phone: Comment on above: Method: Oral 09-05-2007 11:44-0500 Body weight 0 kg Patti Ambrocio [facility] Work Phone: 09-05-2007 11:44-0500 BP Diastolic 62 mm[Hg] [facility]: Comment on above: Patient Position: Sitting; Cuff Location : Left Arm; Cuff Size: Standard 09-05-2007 11:44-0500 BP Systolic 100 mm[Hg] [facility]: Comment on above: Patient Position: Sitting; Cuff Location : Left Arm; Cuff Size: Standard 09-05-2007 11:44-0500 Head Circumference 0 cm Afsaneh Green [facility] Work Phone: 09-05-2007 11:44-0500 Head Occipital-frontal circumference 0 cm Patti Ambrocio [facility]; [facility] Work Phone: 09-05-2007 11:44-0500 Height 0 [facility]: 09-05-2007 11:44-0500 Pulse (Heart Rate) 64 /min [facility]: Comment on above: Pattern: Regular 09-05-2007 11:44-0500 Respiratory Rate 18 /[facility]: Comment on above: Pattern: Unlabored 09-04-2007 09:27-0500 BMI (Body Mass Index) 32.1 kg/m2 Patricia Ash RN [facility] Work Phone: 09-04-2007 09:27-0500 Body weight 94.35 kg Patricia Ash RN [facility] Work Phone: 09-04-2007 09:27-0500 BP Diastolic 60 mm[Hg] Patricia Ash RN [facility] Work Phone: Comment on above: Patient Position: Sitting; Cuff Location : Left Arm; Cuff Size: Standard 09-04-2007 09:27-0500 BP Systolic 122 mm[Hg] Patricia Ash RN [facility] Work Phone: Comment on above: Patient Position: Sitting; Cuff Location : Left Arm; Cuff Size: Standard 09-04-2007 09:27-0500 BSA (Body Surface Area) 2.07 m2 Patricia Ash RN [facility] Work Phone: 09-04-2007 09:27-0500 Head Circumference 0 cm Afsaneh Green [facility] Work Phone: 09-04-2007 09:27-0500 Head Occipital-frontal circumference 0 cm Patricia Ash RN [facility]; [facility] Work Phone: 09-04-2007 09:27-0500 Height 171.45 cm Patricia Ash RN [facility] Work Phone: 09-04-2007 09:27-0500 Pulse (Heart Rate) 80 /min Patricia Ash RN [facility] Work Phone: Comment on above: Pattern: Regular 09-04-2007 09:27-0500 Respiratory Rate 16 /min Patricia Ash RN [facility] Work Phone: Comment on above: Pattern: Unlabored 09-01-2007 09:38-0400 BMI (Body Mass Index) 32.1 kg/m2 Patricia Ash RN [facility] Work Phone: 09-01-2007 09:38-0400 Body weight 94.35 kg Patricia Ash RN [facility] Work Phone: 09-01-2007 09:38-0400 BP Diastolic 78 mm[Hg] Patricia Ash RN [facility] Work Phone: Comment on above: Patient Position: Sitting; Cuff Location : Left Arm; Cuff Size: Standard 09-01-2007 09:38-0400 BP Systolic 118 mm[Hg] Patricia Ash RN [facility] Work Phone: Comment on above: Patient Position: Sitting; Cuff Location : Left Arm; Cuff Size: Standard 09-01-2007 09:38-0400 BSA (Body Surface Area) 2.07 m2 Patricia Ash RN [facility] Work Phone: 09-01-2007 09:38-0400 Head Circumference 0 cm Afsaneh Green [facility] Work Phone: 09-01-2007 09:38-0400 Head Occipital-frontal circumference 0 cm Patricia Ash RN [facility]; [facility] Work Phone: 09-01-2007 09:38-0400 Height 171.45 cm Patricia Ash RN [facility] Work Phone: 09-01-2007 09:38-0400 Pulse (Heart Rate) 72 /min Patricia Ash RN [facility] Work Phone: Comment on above: Pattern: Regular 09-01-2007 09:38-0400 Respiratory Rate 16 /min Patricia Ash RN [facility] Work Phone: Comment on above: Pattern: Unlabored 08-31-2007 09:58-0400 BMI (Body Mass Index) 32.1 kg/m2 Patricia Ash RN [facility] Work Phone: 08-31-2007 09:58-0400 Body weight 94.35 kg Patricia Ash RN [facility] Work Phone: 08-31-2007 09:58-0400 BP Diastolic 60 mm[Hg] Patricia Ash RN [facility] Work Phone: Comment on above: Patient Position: Sitting; Cuff Location : Left Arm; Cuff Size: Standard 08-31-2007 09:58-0400 BP Systolic 122 mm[Hg] Patricia Ash RN [facility] Work Phone: Comment on above: Patient Position: Sitting; Cuff Location : Left Arm; Cuff Size: Standard 08-31-2007 09:58-0400 BSA (Body Surface Area) 2.07 m2 Patricia Ash RN [facility] Work Phone: 08-31-2007 09:58-0400 Head Circumference 0 cm Afsaneh Green [facility] Work Phone: 08-31-2007 09:58-0400 Head Occipital-frontal circumference 0 cm Patricia Ash RN [facility]; [facility] Work Phone: 08-31-2007 09:58-0400 Height 171.45 cm Patricia Ash RN [facility] Work Phone: 08-31-2007 09:58-0400 Pulse (Heart Rate) 64 /min Patricia Ash RN [facility] Work Phone: Comment on above: Pattern: Regular 08-31-2007 09:58-0400 Respiratory Rate 20 /min Patricia Ash RN [facility] Work Phone: Comment on above: Pattern: Unlabored 08-30-2007 15:39-0400 BMI (Body Mass Index) 32.1 kg/m2 Patricia Ash RN [facility] Work Phone: 08-30-2007 15:39-0400 Body weight 94.35 kg Patricia Ash RN [facility] Work Phone: 08-30-2007 15:39-0400 BP Diastolic 70 mm[Hg] Patricia Ash RN [facility] Work Phone: Comment on above: Patient Position: Sitting; Cuff Location : Left Arm; Cuff Size: Standard 08-30-2007 15:39-0400 BP Systolic 118 mm[Hg] Patricia Ash RN [facility] Work Phone: Comment on above: Patient Position: Sitting; Cuff Location : Left Arm; Cuff Size: Standard 08-30-2007 15:39-0400 BSA (Body Surface Area) 2.07 m2 Patricia Ash RN [facility] Work Phone: 08-30-2007 15:39-0400 Head Circumference 0 cm Afsaneh Green [facility] Work Phone: 08-30-2007 15:39-0400 Head Occipital-frontal circumference 0 cm Patricia Ash RN [facility]; [facility] Work Phone: 08-30-2007 15:39-0400 Height 171.45 cm Patricia Ash RN [facility] Work Phone: 08-30-2007 15:39-0400 Pulse (Heart Rate) 64 /min Patricia Ash RN [facility] Work Phone: Comment on above: Pattern: Regular 08-30-2007 15:39-0400 Respiratory Rate 20 /min Patricia Ash RN [facility] Work Phone: Comment on above: Pattern: Unlabored 08-29-2007 09:59-0400 BMI (Body Mass Index) 32.1 kg/m2 Patricia Ash RN [facility] Work Phone: 08-29-2007 09:59-0400 Body weight 94.35 kg Patricia Ash RN [facility] Work Phone: 08-29-2007 09:59-0400 BP Diastolic 68 mm[Hg] Patricia Ash RN [facility] Work Phone: Comment on above: Patient Position: Sitting; Cuff Location : Left Arm; Cuff Size: Large 08-29-2007 09:59-0400 BP Systolic 110 mm[Hg] Patricia Ash RN [facility] Work Phone: Comment on above: Patient Position: Sitting; Cuff Location : Left Arm; Cuff Size: Large 08-29-2007 09:59-0400 BSA (Body Surface Area) 2.07 m2 Patricia Ash RN [facility] Work Phone: 08-29-2007 09:59-0400 Head Circumference 0 cm Afsaneh Green [facility] Work Phone: 08-29-2007 09:59-0400 Head Occipital-frontal circumference 0 cm Patricia Ash RN [facility]; [facility] Work Phone: 08-29-2007 09:59-0400 Height 171.45 cm Patricia Ash RN [facility] Work Phone: 08-29-2007 09:59-0400 Pulse (Heart Rate) 64 /min Patricia Ash RN [facility] Work Phone: Comment on above: Pattern: Regular 08-29-2007 09:59-0400 Respiratory Rate 16 /min Patricia Ash RN [facility] Work Phone: Comment on above: Pattern: Unlabored 08-28-2007 10:05-0400 BMI (Body Mass Index) 32.1 kg/m2 Patricia Ash RN [facility] Work Phone: 08-28-2007 10:05-0400 Body weight 94.35 kg Patricia Ash RN [facility] Work Phone: 08-28-2007 10:05-0400 BP Diastolic 68 mm[Hg] Patricia Ash RN [facility] Work Phone: Comment on above: Patient Position: Sitting; Cuff Location : Right Arm; Cuff Size: Standard 08-28-2007 10:05-0400 BP Systolic 118 mm[Hg] Patricia Ash RN [facility] Work Phone: Comment on above: Patient Position: Sitting; Cuff Location : Right Arm; Cuff Size: Standard 08-28-2007 10:05-0400 BSA (Body Surface Area) 2.07 m2 Patricia Ash RN [facility] Work Phone: 08-28-2007 10:05-0400 Head Circumference 0 cm Afsaneh Green [facility] Work Phone: 08-28-2007 10:05-0400 Head Occipital-frontal circumference 0 cm Patricia Ash RN [facility]; [facility] Work Phone: 08-28-2007 10:05-0400 Height 171.45 cm Patricia Ash RN [facility] Work Phone: 08-28-2007 10:05-0400 Pulse (Heart Rate) 64 /min Patricia Ash RN [facility] Work Phone: Comment on above: Pattern: Regular 08-28-2007 10:05-0400 Respiratory Rate 20 /min Patricia Ash RN [facility] Work Phone: Comment on above: Pattern: Unlabored 08-25-2007 09:29-0400 BMI (Body Mass Index) 32.1 kg/m2 Patricia Ash RN [facility] Work Phone: 08-25-2007 09:29-0400 Body weight 94.35 kg Patricia Ash RN [facility] Work Phone: 08-25-2007 09:29-0400 BP Diastolic 62 mm[Hg] Patricia Ash RN [facility] Work Phone: Comment on above: Patient Position: Sitting; Cuff Location : Left Arm; Cuff Size: Standard 08-25-2007 09:29-0400 BP Systolic 118 mm[Hg] Patricia Ash RN [facility] Work Phone: Comment on above: Patient Position: Sitting; Cuff Location : Left Arm; Cuff Size: Standard 08-25-2007 09:29-0400 BSA (Body Surface Area) 2.07 m2 Patricia Ash RN [facility] Work Phone: 08-25-2007 09:29-0400 Head Circumference 0 cm Afsaneh Green [facility] Work Phone: 08-25-2007 09:29-0400 Head Occipital-frontal circumference 0 cm Patricia Ash RN [facility]; [facility] Work Phone: 08-25-2007 09:29-0400 Height 171.45 cm Patricia Ash RN [facility] Work Phone: 08-25-2007 09:29-0400 Pulse (Heart Rate) 68 /min Patricia Ash RN [facility] Work Phone: Comment on above: Pattern: Regular 08-25-2007 09:29-0400 Respiratory Rate 20 /min Patricia Ash RN [facility] Work Phone: Comment on above: Pattern: Unlabored 08-24-2007 10:12-0400 BMI (Body Mass Index) 32.1 kg/m2 Patricia Ash RN [facility] Work Phone: 08-24-2007 10:12-0400 Body weight 94.35 kg Patricia Ash RN [facility] Work Phone: 08-24-2007 10:12-0400 BP Diastolic 60 mm[Hg] Patricia Ash RN [facility] Work Phone: Comment on above: Patient Position: Sitting; Cuff Location : Left Arm; Cuff Size: Large 08-24-2007 10:12-0400 BP Systolic 120 mm[Hg] Patricia Ash RN [facility] Work Phone: Comment on above: Patient Position: Sitting; Cuff Location : Left Arm; Cuff Size: Large 08-24-2007 10:12-0400 BSA (Body Surface Area) 2.07 m2 Patricia Ash RN [facility] Work Phone: 08-24-2007 10:120400 Head Circumference 0 cm Afsaneh Nelida [facility] Work Phone: 08-24-2007 10:120400 Head Occipital-frontal circumference 0 cm Patricia Ash RN [facility]; [facility] Work Phone: 08-24-2007 10:12-0400 Height 171.45 cm Patricia Ash RN [facility] Work Phone: 08-24-2007 10:12-0400 Pulse (Heart Rate) 64 /min Patricia Ash RN [facility] Work Phone: Comment on above: Pattern: Regular 08-24-2007 10:12-0400 Respiratory Rate 20 /min Patricia Ash RN [facility] Work Phone: Comment on above: Pattern: Unlabored 08-23-2007 11:56-0400 BMI (Body Mass Index) 32.1 kg/m2 Patricia Ash RN [facility] Work Phone: 08-23-2007 11:56-0400 Body Temperature 98.5 [degF] Patricia Ash RN [facility] Work Phone: Comment on above: Method: Oral 08-23-2007 11:56-0400 Body weight 94.35 kg Patricia Ash RN [facility] Work Phone: 08-23-2007 11:56-0400 BP Diastolic 68 mm[Hg] Patricia Ash RN [facility] Work Phone: Comment on above: Patient Position: Sitting; Cuff Location : Left Arm; Cuff Size: Standard 08-23-2007 11:56-0400 BP Systolic 114 mm[Hg] Patricia Ash RN [facility] Work Phone: Comment on above: Patient Position: Sitting; Cuff Location : Left Arm; Cuff Size: Standard 08-23-2007 11:56-0400 BSA (Body Surface Area) 2.07 m2 Patricia Ash RN [facility] Work Phone: 08-23-2007 11:56-0400 Head Circumference 0 cm Afsaneh Green [facility] Work Phone: 08-23-2007 11:56-0400 Head Occipital-frontal circumference 0 cm Patricia Ash RN [facility]; [facility] Work Phone: 08-23-2007 11:56-0400 Height 171.45 cm Patricia Ash RN [facility] Work Phone: 08-23-2007 11:56-0400 Pulse (Heart Rate) 72 /min Patricia Ash RN [facility] Work Phone: Comment on above: Pattern: Regular 08-23-2007 11:56-0400 Respiratory Rate 16 /min Patricia Ash RN [facility] Work Phone: Comment on above: Pattern: Unlabored 08-22-2007 09:01-0400 BMI (Body Mass Index) 32.1 kg/m2 Carey [facility] Work Phone: 08-22-2007 09:01-0400 Body Temperature 98.8 [degF] Carey Neff [facility] Work Phone: Comment on above: Method: Oral 08-22-2007 09:01-0400 Body weight 94.35 kg Carey Neff [employer] [facility] Work Phone: 08-22-2007 09:01-0400 BP Diastolic 80 mm[Hg] Carey Neff [facility] Work Phone: Comment on above: Patient Position: Sitting; Cuff Location : Left Arm; Cuff Size: Standard 08-22-2007 09:01-0400 BP Systolic 120 mm[Hg] Carey Neff [facility] Work Phone: Comment on above: Patient Position: Sitting; Cuff Location : Left Arm; Cuff Size: Standard 08-22-2007 09:01-0400 BSA (Body Surface Area) 2.07 m2 Carey Neff [facility] Work Phone: 08-22-2007 09:01-0400 Head Circumference 0 cm Afsaneh Green [facility] Work Phone: 08-22-2007 09:01-0400 Head Occipital-frontal circumference 0 cm Carey Neff [facility]; [facility] Work Phone: 08-22-2007 09:0400 Height 171.45 cm Carey Neff [facility] Work Phone: 08-22-2007 09:01-0400 Pulse (Heart Rate) 70 /min Carey Neff [facility] Work Phone: Comment on above: Pattern: Regular 08-22-2007 09:01-0400 Respiratory Rate 17 /min Carey Neff [facility] Work Phone: Comment on above: Pattern: Unlabored 08-21-2007 16:10-0400 BMI (Body Mass Index) 32.1 kg/m2 Patricia Ash RN [facility] Work Phone: 08-21-2007 16:10-0400 Body weight 94.35 kg Patricia Ash RN [facility] Work Phone: 08-21-2007 16:10-0400 BP Diastolic 78 mm[Hg] Patricia Ash RN [facility] Work Phone: Comment on above: Patient Position: Sitting; Cuff Location : Left Arm; Cuff Size: Standard 08-21-2007 16:10-0400 BP Systolic 118 mm[Hg] Patricia Ash RN [facility] Work Phone: Comment on above: Patient Position: Sitting; Cuff Location : Left Arm; Cuff Size: Standard 08-21-2007 16:10-0400 BSA (Body Surface Area) 2.07 m2 Patricia Ash RN [facility] Work Phone: 08-21-2007 16:10-0400 Head Circumference 0 cm Afsaneh Green [facility] Work Phone: 08-21-2007 16:10-0400 Head Occipital-frontal circumference 0 cm Patricia Ash RN [facility]; [facility] Work Phone: 08-21-2007 16:10-0400 Height 171.45 cm Patricia Ash RN [facility] Work Phone: 08-21-2007 16:10-0400 Pulse (Heart Rate) 64 /min Patricia Ash RN [facility] Work Phone: Comment on above: Pattern: Regular 08-21-2007 16:10-0400 Respiratory Rate 20 /min Patricia Ash RN [facility] Work Phone: Comment on above: Pattern: Unlabored 08-18-2007 09:42-0400 Body Temperature 98.8 [degF] Afsaneh Green [facility] Work Phone: Comment on above: Method: Oral 08-18-2007 09:42-0400 Body weight 0 kg Afsaneh Green [facility] Work Phone: 08-18-2007 09:42-0400 BP Diastolic 58 mm[Hg] Afsaneh Green [facility] Work Phone: Comment on above: Patient Position: Sitting; Cuff Location : Right Arm; Cuff Size: Standard 08-18-2007 09:42-0400 BP Systolic 102 mm[Hg] Afsaneh Green [facility] Work Phone: Comment on above: Patient Position: Sitting; Cuff Location : Right Arm; Cuff Size: Standard 08-18-2007 09:42-0400 Head Circumference 0 cm Afsaneh Green [facility] Work Phone: 08-18-2007 09:42-0400 Head Occipital-frontal circumference 0 cm Afsaneh Green DO Work Phone: [facility]; [facility] Work Phone: 08-18-2007 09:42-0400 Height 0 cm Afsaneh Green [facility] Work Phone: 08-18-2007 09:42-0400 Pulse (Heart Rate) 68 /min Afsaneh Green [facility] Work Phone: Comment on above: Pattern: Regular 08-18-2007 09:42-0400 Respiratory Rate 16 /min Afsaneh Green [facility] Work Phone: Comment on above: Pattern: Unlabored 08-17-2007 10:57-0400 Body Temperature 97.8 [degF] Patti Ambrocio [facility] Work Phone: Comment on above: Method: Oral 08-17-2007 10:57-0400 Body weight 0 kg Patti Ambrocio [facility] Work Phone: 08-17-2007 10:57-0400 BP Diastolic 76 mm[Hg] [facility] Work [facility]: Comment on above: Patient Position: Sitting; Cuff Location : Right Arm; Cuff Size: Standard 08-17-2007 10:57-0400 BP Systolic 124 mm[Hg] [facility] Work Phone: Comment on above: Patient Position: Sitting; Cuff Location : Right Arm; Cuff Size: Standard 08-17-2007 10:57-0400 Head Circumference 0 cm Afsaneh Green [facility] Work Phone: 08-17-2007 10:57-0400 Head Occipital-frontal circumference 0 cm Patti Ambrocio [facility]; [facility] Work Phone: 08-17-2007 10:57-0400 Height 0 cm Patti Ambrocio [facility] Work Phone: 08-17-2007 10:57-0400 Pulse (Heart Rate) 78 /min [facility] Work [facility]: Comment on above: Pattern: Regular 08-17-2007 10:57-0400 Respiratory Rate 18 /min [facility] Work Phone: Comment on above: Pattern: Unlabored 08-16-2007 10:09-0400 Body Temperature 98.6 [degF] SOFIE Zamora LPN [facility] Work Phone: Comment on above: Method: Oral 08-16-2007 10:09-0400 Body weight 0 kg SOFIE Zamora [employer] [facility] Work Phone: 08-16-2007 10:09-0400 BP Diastolic 78 mm[Hg] SOFIE Zamora [employer] [facility] Work Phone: Comment on above: Patient Position: Sitting; Cuff Location : Left Arm; Cuff Size: Standard 08-16-2007 10:09-0400 BP Systolic 122 mm[Hg] SOFIE Zamora [employer] [facility] Work Phone: Comment on above: Patient Position: Sitting; Cuff Location : Left Arm; Cuff Size: Standard 08-16-2007 10:09-0400 Head Circumference 0 cm Afsaneh Green [facility] Work Phone: 08-16-2007 10:09-0400 Head Occipital-frontal circumference 0 cm SOFIE Zamora [facility]; [facility] Work Phone: 08-16-2007 10:-0400 Height 0 cm SOFIE Zamora [employer] [facility] Work Phone: 08-16-2007 10:09-0400 Pulse (Heart Rate) 70 /min SOFIE Zamora [employer] [facility] Work Phone: Comment on above: Pattern: Regular 08-16-2007 10:-0400 Respiratory Rate 18 /min SOFIE Zamora [employer] [facility] Work Phone: Comment on above: Pattern: Unlabored 08-15-2007 11:26-0400 BMI (Body Mass Index) 32.1 kg/m2 Carey Neff [facility] Work Phone: 08-15-2007 11:26-0400 Body weight 94.35 kg Carey Neff [facility] Work Phone: 08-15-2007 11:26-0400 BP Diastolic 72 mm[Hg] Carey Neff [facility] Work Phone: Comment on above: Patient Position: Sitting; Cuff Location : Left Arm; Cuff Size: Standard 08-15-2007 11:26-0400 BP Systolic 122 mm[Hg] Carey Neff [facility] Work Phone: Comment on above: Patient Position: Sitting; Cuff Location : Left Arm; Cuff Size: Standard 08-15-2007 11:26-0400 BSA (Body Surface Area) 2.07 m2 Carey Neff [facility] Work Phone: 08-15-2007 11:26-0400 Head Circumference 0 cm Afsaneh Green [facility] Work Phone: 08-15-2007 11:26-0400 Head Occipital-frontal circumference 0 cm Carey Tyler DENIA [facility]; [facility] Work Phone: 08-15-2007 11:26-0400 Height 171.45 cm Carey Neff DENIA [facility] Work Phone: 08-15-2007 11:26-0400 Pulse (Heart Rate) 82 /min Carey Neff LPN [facility] Work Phone: Comment on above: Pattern: Regular 08-15-2007 11:26-0400 Respiratory Rate 17 /min Carey Neff DENIA [facility] Work Phone: Comment on above: Pattern: Unlabored 08-14-2007 16:07-0400 BMI (Body Mass Index) 32.1 kg/m2 Patricia Ash RN [facility] Work Phone: 08-14-2007 16:07-0400 Body weight 94.35 kg Patricia Ash RN [facility] Work Phone: 08-14-2007 16:07-0400 BP Diastolic 70 mm[Hg] Patricia Ash RN [facility] Work Phone: Comment on above: Patient Position: Sitting; Cuff Location : Right Arm; Cuff Size: Standard 08-14-2007 16:07-0400 BP Systolic 118 mm[Hg] Patricia Ash RN [facility] Work Phone: Comment on above: Patient Position: Sitting; Cuff Location : Right Arm; Cuff Size: Standard 08-14-2007 16:07-0400 BSA (Body Surface Area) 2.07 m2 Patricia Ash RN [facility] Work Phone: 08-14-2007 16:07-0400 Head Circumference 0 cm Afsaneh Renaeon [facility] Work Phone: 08-14-2007 16:07-0400 Head Occipital-frontal circumference 0 cm Patricia Ash RN [facility]; [facility] Work Phone: 08-14-2007 16:07-0400 Height 171.45 cm Patricia Ash RN [facility] Work Phone: 08-14-2007 16:07-0400 Pulse (Heart Rate) 80 /min Patricia Ash RN [facility] Work Phone: Comment on above: Pattern: Regular 08-14-2007 16:07-0400 Respiratory Rate 16 /min Patricia Ash RN [facility] Work Phone: Comment on above: Pattern: Unlabored 08-11-2007 09:58-0400 BMI (Body Mass Index) 32.1 kg/m2 Patricia Ash RN [facility] Work Phone: 08-11-2007 09:58-0400 Body Temperature 98 [degF] Patricia Ash RN [facility] Work Phone: Comment on above: Method: Oral 08-11-2007 09:58-0400 Body weight 94.35 kg Patricia Ash RN [facility] Work Phone: 08-11-2007 09:58-0400 BP Diastolic 62 mm[Hg] Patricia Ash RN [facility] Work Phone: Comment on above: Patient Position: Sitting; Cuff Location : Left Arm; Cuff Size: Standard 08-11-2007 09:58-0400 BP Systolic 98 mm[Hg] Patricia Ash RN [facility] Work Phone: Comment on above: Patient Position: Sitting; Cuff Location : Left Arm; Cuff Size: Standard 08-11-2007 09:58-0400 BSA (Body Surface Area) 2.07 m2 Patricia Ash RN [facility] Work Phone: 08-11-2007 09:58-0400 Head Circumference 0 cm Afsaneh Green [facility] Work Phone: 08-11-2007 09:58-0400 Head Occipital-frontal circumference 0 cm Patricia Ash RN [facility]; [facility] Work Phone: 08-11-2007 09:58-0400 Height 171.45 cm Patricia Ash RN [facility] Work Phone: 08-11-2007 09:58-0400 Pulse (Heart Rate) 60 /min Patricia Ash RN [facility] Work Phone: Comment on above: Pattern: Regular 08-11-2007 09:58-0400 Respiratory Rate 16 /min Patricia Ash RN [facility] Work Phone: Comment on above: Pattern: Unlabored 08-10-2007 12:19-0400 BMI (Body Mass Index) 32.1 kg/m2 Patricia Ash RN [facility] Work Phone: 08-10-2007 12:19-0400 Body weight 94.35 kg Patricia Ash RN [facility] Work Phone: 08-10-2007 12:19-0400 BP Diastolic 60 mm[Hg] Patricia Ash RN [facility] Work Phone: Comment on above: Patient Position: Sitting; Cuff Location : Right Arm; Cuff Size: Standard 08-10-2007 12:19-0400 BP Systolic 110 mm[Hg] Patricia Ash RN [facility] Work Phone: Comment on above: Patient Position: Sitting; Cuff Location : Right Arm; Cuff Size: Standard 08-10-2007 12:19-0400 BSA (Body Surface Area) 2.07 m2 Patricia Ash RN [facility] Work Phone: 08-10-2007 12:19-0400 Head Circumference 0 cm Afsaneh Green [facility] Work Phone: 08-10-2007 12:19-0400 Head Occipital-frontal circumference 0 cm Patricia Ash RN [facility]; [facility] Work Phone: 08-10-2007 12:19-0400 Height 171.45 cm Patricia Ash RN [facility] Work Phone: 08-10-2007 12:19-0400 Pulse (Heart Rate) 88 /min Patricia Ash RN [facility] Work Phone: Comment on above: Pattern: Regular 08-10-2007 12:19-0400 Respiratory Rate 20 /min Patricia Ash RN [facility] Work Phone: Comment on above: Pattern: Unlabored 08-09-2007 09:33-0400 BMI (Body Mass Index) 32.1 kg/m2 Patricia Ash RN [facility] Work Phone: 08-09-2007 09:33-0400 Body Temperature 97.7 [degF] Patricia Ash RN [facility] Work Phone: Comment on above: Method: Oral 08-09-2007 09:33-0400 Body weight 94.35 kg Patricia Ash RN [facility] Work Phone: 08-09-2007 09:33-0400 BP Diastolic 70 mm[Hg] Patricia Ash RN [facility] Work Phone: Comment on above: Patient Position: Sitting; Cuff Location : Left Arm; Cuff Size: Standard 08-09-2007 09:33-0400 BP Systolic 118 mm[Hg] Patricia Ash RN [facility] Work Phone: Comment on above: Patient Position: Sitting; Cuff Location : Left Arm; Cuff Size: Standard 08-09-2007 09:33-0400 BSA (Body Surface Area) 2.07 m2 Patricia Ash RN [facility] Work Phone: 08-09-2007 09:33-0400 Head Circumference 0 cm Afsaneh Green [facility] Work Phone: 08-09-2007 09:33-0400 Head Occipital-frontal circumference 0 cm Patricia Ash RN [facility]; [facility] Work Phone: 08-09-2007 09:33-0400 Height 171.45 cm Patricia Ash RN [facility] Work Phone: 08-09-2007 09:33-0400 Pulse (Heart Rate) 72 /min Patricia Ash RN [facility] Work Phone: Comment on above: Pattern: Regular 08-09-2007 09:33-0400 Respiratory Rate 18 /min Patricia Ash RN [facility] Work Phone: Comment on above: Pattern: Unlabored 08-08-2007 10:27-0400 BMI (Body Mass Index) 32.1 kg/m2 Carey Neff LPN [facility] Work Phone: 08-08-2007 10:27-0400 Body Temperature 98.2 [degF] Carey Neff LPN [facility] Work Phone: Comment on above: Method: Oral 08-08-2007 10:27-0400 Body weight 94.35 kg Carey Neff LPN [facility] Work Phone: 08-08-2007 10:27-0400 BP Diastolic 68 mm[Hg] Carey Neff LPN [facility] Work Phone: Comment on above: Patient Position: Sitting; Cuff Location : Left Arm; Cuff Size: Standard 08-08-2007 10:27-0400 BP Systolic 110 mm[Hg] Carey Neff LPN [facility] Work Phone: Comment on above: Patient Position: Sitting; Cuff Location : Left Arm; Cuff Size: Standard 08-08-2007 10:27-0400 BSA (Body Surface Area) 2.07 m2 Carey Neff LPN [facility] Work Phone: 08-08-2007 10:27-0400 Head Circumference 0 cm Afsaneh Green [facility] Work Phone: 08-08-2007 10:27-0400 Head Occipital-frontal circumference 0 cm Carey Neff LPN [facility]; [facility] Work Phone: 08-08-2007 10:27-0400 Height 171.45 cm Carey Neff LPN [facility] Work Phone: 08-08-2007 10:27-0400 Pulse (Heart Rate) 78 /min Carey Neff LPN [facility] Work Phone: Comment on above: Pattern: Regular 08-08-2007 10:27-0400 Respiratory Rate 17 /min Carey Neff LPN [facility] Work Phone: Comment on above: Pattern: Unlabored 08-07-2007 09:28-0400 Body Temperature 99.2 [degF] Afsaneh Green [facility] Work Phone: Comment on above: Method: Oral 08-07-2007 09:28-0400 Body weight 0 kg Afsaneh Green [facility] Work Phone: 08-07-2007 09:28-0400 BP Diastolic 68 mm[Hg] Afsaneh Green [facility] Work Phone: Comment on above: Patient Position: Sitting; Cuff Location : Left Arm; Cuff Size: Standard 08-07-2007 09:28-0400 BP Systolic 112 mm[Hg] Afsaneh Green [facility] Work Phone: Comment on above: Patient Position: Sitting; Cuff Location : Left Arm; Cuff Size: Standard 08-07-2007 09:28-0400 Head Circumference 0 cm Afsaneh Green [facility] Work Phone: 08-07-2007 09:28-0400 Head Occipital-frontal circumference 0 cm Afsaneh Green DO Work Phone: [facility]; [facility] Work Phone: 08-07-2007 09:28-0400 Height 0 cm Afsaneh Green [facility] Work Phone: 08-07-2007 09:28-0400 Pulse (Heart Rate) 76 /min Afsaneh Green [facility] Work Phone: Comment on above: Pattern: Regular 08-07-2007 09:28-0400 Respiratory Rate 16 /min Afsaneh Green [facility] Work Phone: Comment on above: Pattern: Unlabored 08-06-2007 12:33-0400 Body Temperature 97.1 [degF] Afsaneh Green DO Work Phone: [facility] Work Phone: Comment on above: Method: Oral 08-06-2007 12:33-0400 Body weight 0 kg Afsaneh Green DO Work Phone: [facility] Work Phone: 08-06-2007 12:33-0400 BP Diastolic 70 mm[Hg] Afsaneh Green DO Work Phone: [facility] Work Phone: Comment on above: Patient Position: Sitting; Cuff Location : Undefined; Cuff Size: Undefined 08-06-2007 12:33-0400 BP Systolic 118 mm[Hg] Afsaneh Nelida DO Work Phone: [facility] Work Phone: Comment on above: Patient Position: Sitting; Cuff Location : Undefined; Cuff Size: Undefined 08-06-2007 12:33-0400 Head Circumference 0 cm Afsaneh Renaeon [facility] Work Phone: 08-06-2007 12:33-0400 Head Occipital-frontal circumference 0 cm Afsaneh Nelida DO Work Phone: [facility]; [facility] Work Phone: 08-06-2007 12:33-0400 Height 0 cm Afsaneh Nelida DO Work Phone: [facility] Work Phone: 08-06-2007 12:33-0400 Pulse (Heart Rate) 72 /min Afsaneh Nelida DO Work Phone: [facility] Work Phone: Comment on above: Pattern: Regular 08-06-2007 12:33-0400 Respiratory Rate 12 /min Afsaneh Nelida DO Work Phone: [facility] Work Phone: Comment on above: Pattern: Unlabored 08-05-2007 09:25-0400 Body Temperature 97.9 [degF] ALLAN SUN CNP Work Phone: [facility] Work Phone: Comment on above: Method: Oral 08-05-2007 09:25-0400 Body weight 0 kg ALLAN SUN [employer] Work Phone: [facility] Work Phone: 08-05-2007 09:25-0400 BP Diastolic 72 mm[Hg] ALLAN SUN [employer] Work Phone: [facility] Work Phone: Comment on above: Patient Position: Sitting; Cuff Location : Undefined; Cuff Size: Undefined 08-05-2007 09:25-0400 BP Systolic 122 mm[Hg] ALLAN SUN [employer] Work Phone: [facility] Work Phone: Comment on above: Patient Position: Sitting; Cuff Location : Undefined; Cuff Size: Undefined 08-05-2007 09:25-0400 Head Circumference 0 cm Afsaneh Green [facility] Work Phone: 08-05-2007 09:25-0400 Head Occipital-frontal circumference 0 cm ALLAN SUN [employer] Work Phone: [facility]; [facility] Work Phone: 08-05-2007 09:25-0400 Height 0 cm ALLAN SUN [employer] Work Phone: [facility] Work Phone: 08-04-2007 11:35-0400 BMI (Body Mass Index) 32.1 kg/m2 Patricia Ash RN [facility] Work Phone: 08-04-2007 11:35-0400 Body weight 94.35 kg Patricia Ash RN [facility] Work Phone: 08-04-2007 11:35-0400 BP Diastolic 62 mm[Hg] Patricia Ash RN [facility] Work Phone: Comment on above: Patient Position: Sitting; Cuff Location : Left Arm; Cuff Size: Standard 08-04-2007 11:35-0400 BP Systolic 106 mm[Hg] Patricia Ash RN [facility] Work Phone: Comment on above: Patient Position: Sitting; Cuff Location : Left Arm; Cuff Size: Standard 08-04-2007 11:35-0400 BSA (Body Surface Area) 2.07 m2 Patricia Ash RN [facility] Work Phone: 08-04-2007 11:35-0400 Head Circumference 0 cm Afsaneh Green [facility] Work Phone: 08-04-2007 11:35-0400 Head Occipital-frontal circumference 0 cm Patricia Ash RN [facility]; [facility] Work Phone: 08-04-2007 11:35-0400 Height 171.45 cm Patricia Ash RN [facility] Work Phone: 08-04-2007 11:35-0400 Pulse (Heart Rate) 64 /min Patricia Ash RN [facility] Work Phone: Comment on above: Pattern: Regular 08-04-2007 11:35-0400 Respiratory Rate 16 /min Patricia Ash RN [facility] Work Phone: Comment on above: Pattern: Unlabored 08-03-2007 11:54-0400 Body Temperature 97.1 [degF] [facility] Work [facility]: Comment on above: Method: Oral 08-03-2007 11:54-0400 Body weight 0 kg Patti Ambrocio [facility] Work Phone: 08-03-2007 11:54-0400 BP Diastolic 70 mm[Hg] [facility] Work Phone: Comment on above: Patient Position: Sitting; Cuff Location : Left Arm; Cuff Size: Standard 08-03-2007 11:54-0400 BP Systolic 122 mm[Hg] [facility] Work Phone: Comment on above: Patient Position: Sitting; Cuff Location : Left Arm; Cuff Size: Standard 08-03-2007 11:54-0400 Head Circumference 0 cm Afsaneh Green [facility] Work Phone: 08-03-2007 11:54-0400 Head Occipital-frontal circumference 0 cm [facility] Work Phone: 08-03-2007 11:54-0400 Height 0 cm [facility] Work Phone: 08-03-2007 11:54-0400 Pulse (Heart Rate) 74 /min [facility] Work Phone: Comment on above: Pattern: Regular 08-03-2007 11:54-0400 Respiratory Rate 16 /min [facility] Work Phone: Comment on above: Pattern: Unlabored 08-02-2007 12:44-0400 BMI (Body Mass Index) 32.1 kg/m2 Carey Neff LPN [facility] Work Phone: 08-02-2007 12:44-0400 Body weight 94.35 kg Carey Neff LPN [facility] Work Phone: 08-02-2007 12:44-0400 BP Diastolic 66 mm[Hg] Carey Neff LPN [facility] Work Phone: Comment on above: Patient Position: Sitting; Cuff Location : Left Arm; Cuff Size: Standard 08-02-2007 12:44-0400 BP Systolic 120 mm[Hg] Carey Neff LPN [facility] Work Phone: Comment on above: Patient Position: Sitting; Cuff Location : Left Arm; Cuff Size: Standard 08-02-2007 12:44-0400 BSA (Body Surface Area) 2.07 m2 Carey Neff LPN [facility] Work Phone: 08-02-2007 12:44-0400 Head Circumference 0 cm Afsaneh Nelida [facility] Work Phone: 08-02-2007 12:44-0400 Head Occipital-frontal circumference 0 cm Carey Neff LPN [facility]; [facility] Work Phone: 08-02-2007 12:44-0400 Height 171.45 cm Craey Neff LPN [facility] Work Phone: 08-02-2007 12:44-0400 Pulse (Heart Rate) 76 /min Carey Neff LPN [facility] Work Phone: Comment on above: Pattern: Regular 08-02-2007 12:44-0400 Respiratory Rate 16 /min Carey Neff LPN [facility] Work Phone: Comment on above: Pattern: Unlabored 08-01-2007 11:21-0400 BMI (Body Mass Index) 32.1 kg/m2 Carey Neff LPN [facility] Work Phone: 08-01-2007 11:21-0400 Body Temperature 98.4 [degF] Carey Neff LPN [facility] Work Phone: Comment on above: Method: Oral 08-01-2007 11:21-0400 Body weight 94.35 kg Carey Neff LPN [facility] Work Phone: 08-01-2007 11:21-0400 BP Diastolic 68 mm[Hg] Carey Neff LPN [facility] Work Phone: Comment on above: Patient Position: Sitting; Cuff Location : Left Arm; Cuff Size: Standard 08-01-2007 11:21-0400 BP Systolic 120 mm[Hg] Carey Neff LPN [facility] Work Phone: Comment on above: Patient Position: Sitting; Cuff Location : Left Arm; Cuff Size: Standard 08-01-2007 11:21-0400 BSA (Body Surface Area) 2.07 m2 Carey Neff LPN [facility] Work Phone: 08-01-2007 11:21-0400 Head Circumference 0 cm Afsaneh Green [facility] Work Phone: 08-01-2007 11:21-0400 Head Occipital-frontal circumference 0 cm Carey Neff LPN [facility]; [facility] Work Phone: 08-01-2007 11:21-0400 Height 171.45 cm Carey Neff LPN [facility] Work Phone: 08-01-2007 11:21-0400 Pulse (Heart Rate) 78 /min Carey Neff LPN [facility] Work Phone: Comment on above: Pattern: Regular 08-01-2007 11:21-0400 Respiratory Rate 17 /min Carey Neff LPN [facility] Work Phone: Comment on above: Pattern: Unlabored 07-31-2007 16:52-0400 BMI (Body Mass Index) 32.1 kg/m2 Patricia Ash RN [facility] Work Phone: 07-31-2007 16:52-0400 Body weight 94.35 kg Patricia Ash RN [facility] Work Phone: 07-31-2007 16:52-0400 BP Diastolic 62 mm[Hg] Patricia Ash RN [facility] Work Phone: Comment on above: Patient Position: Sitting; Cuff Location : Right Arm; Cuff Size: Standard 07-31-2007 16:52-0400 BP Systolic 124 mm[Hg] Patricia Ash RN [facility] Work Phone: Comment on above: Patient Position: Sitting; Cuff Location : Right Arm; Cuff Size: Standard 07-31-2007 16:52-0400 BSA (Body Surface Area) 2.07 m2 Patricia Ash RN [facility] Work Phone: 07-31-2007 16:52-0400 Head Circumference 0 cm Afsaneh Green [facility] Work Phone: 07-31-2007 16:52-0400 Head Occipital-frontal circumference 0 cm Patricia Ash RN [facility]; [facility] Work Phone: 07-31-2007 16:52-0400 Height 171.45 cm Patricia Ash RN [facility] Work Phone: 07-31-2007 16:52-0400 Pulse (Heart Rate) 80 /min Patricia Ash RN [facility] Work Phone: Comment on above: Pattern: Regular 07-31-2007 16:52-0400 Respiratory Rate 20 /min Patricia Ash RN [facility] Work Phone: Comment on above: Pattern: Unlabored 07-27-2007 09:33-0400 BMI (Body Mass Index) 32.1 kg/m2 Patricia Ash RN [facility] Work Phone: 07-27-2007 09:33-0400 Body Temperature 98.3 [degF] Patricia Ash RN [facility] Work Phone: Comment on above: Method: Oral 07-27-2007 09:33-0400 Body weight 94.35 kg Patricia Ash RN [facility] Work Phone: 07-27-2007 09:33-0400 BP Diastolic 50 mm[Hg] Patricia Ash RN [facility] Work Phone: Comment on above: Patient Position: Sitting; Cuff Location : Right Arm; Cuff Size: Standard 07-27-2007 09:33-0400 BP Systolic 98 mm[Hg] Patricia Ash RN [facility] Work Phone: Comment on above: Patient Position: Sitting; Cuff Location : Right Arm; Cuff Size: Standard 07-27-2007 09:33-0400 BSA (Body Surface Area) 2.07 m2 Patricia Ash RN [facility] Work Phone: 07-27-2007 09:33-0400 Head Circumference 0 cm Afsaneh Green [facility] Work Phone: 07-27-2007 09:33-0400 Head Occipital-frontal circumference 0 cm Patricia Ash RN [facility]; [facility] Work Phone: 07-27-2007 09:33-0400 Height 171.45 cm Patricia Ash RN [facility] Work Phone: 07-27-2007 09:33-0400 Pulse (Heart Rate) 76 /min Patricia Ash RN [facility] Work Phone: Comment on above: Pattern: Regular 07-27-2007 09:33-0400 Respiratory Rate 18 /min Patricia Ash RN [facility] Work Phone: Comment on above: Pattern: Unlabored 07-26-2007 14:24-0400 BMI (Body Mass Index) 32.1 kg/m2 Patricia Ash RN [facility] Work Phone: 07-26-2007 14:24-0400 Body Temperature 98.3 [degF] Patricia Ash RN [facility] Work Phone: Comment on above: Method: Oral 07-26-2007 14:24-0400 Body weight 94.35 kg Patricia Ash RN [facility] Work Phone: 07-26-2007 14:24-0400 BP Diastolic 68 mm[Hg] Patricia Ash RN [facility] Work Phone: Comment on above: Patient Position: Sitting; Cuff Location : Right Arm; Cuff Size: Standard 07-26-2007 14:24-0400 BP Systolic 116 mm[Hg] Patricia Ash RN [facility] Work Phone: Comment on above: Patient Position: Sitting; Cuff Location : Right Arm; Cuff Size: Standard 07-26-2007 14:24-0400 BSA (Body Surface Area) 2.07 m2 Patricia Ash RN [facility] Work Phone: 07-26-2007 14:24-0400 Head Circumference 0 cm Afsaneh Green [facility] Work Phone: 07-26-2007 14:24-0400 Head Occipital-frontal circumference 0 cm Patricia Ash RN [facility]; [facility] Work Phone: 07-26-2007 14:24-0400 Height 171.45 cm Patricia Ash RN [facility] Work Phone: 07-26-2007 14:24-0400 Pulse (Heart Rate) 72 /min Patricia Ash RN [facility] Work Phone: Comment on above: Pattern: Regular 07-26-2007 14:24-0400 Respiratory Rate 16 /min Patricia Ash RN [facility] Work Phone: Comment on above: Pattern: Unlabored 07-25-2007 10:54-0400 BMI (Body Mass Index) 32.1 kg/m2 Carey Tawanda LOZA [facility] Work Phone: 07-25-2007 10:54-0400 Body Temperature 98.4 [degF] Carey Tawanda LOZA [facility] Work Phone: Comment on above: Method: Oral 07-25-2007 10:54-0400 Body weight 94.35 kg Carey Tawanda LOZA [facility] Work Phone: 07-25-2007 10:54-0400 BP Diastolic 68 mm[Hg] Carey Tawanda LOZA [facility] Work Phone: Comment on above: Patient Position: Sitting; Cuff Location : Left Arm; Cuff Size: Standard 07-25-2007 10:54-0400 BP Systolic 116 mm[Hg] Carey Tawanda DENIA [facility] Work Phone: Comment on above: Patient Position: Sitting; Cuff Location : Left Arm; Cuff Size: Standard 07-25-2007 10:54-0400 BSA (Body Surface Area) 2.07 m2 Carey Tawanda LOZA [facility] Work Phone: 07-25-2007 10:54-0400 Head Circumference 0 cm Afsaneh Green [facility] Work Phone: 07-25-2007 10:54-0400 Head Occipital-frontal circumference 0 cm Carey Neff LPN [facility]; [facility] Work Phone: 07-25-2007 10:54-0400 Height 171.45 cm Carey Neff LPN [facility] Work Phone: 07-25-2007 10:54-0400 Pulse (Heart Rate) 66 /min Carey Neff LPN [facility] Work Phone: Comment on above: Pattern: Regular 07-25-2007 10:54-0400 Respiratory Rate 16 /min Carey Neff LPN [facility] Work Phone: Comment on above: Pattern: Unlabored 07-24-2007 14:23-0400 BMI (Body Mass Index) 32.1 kg/m2 Patricia Ash RN [facility] Work Phone: 07-24-2007 14:23-0400 Body Temperature 98.2 [degF] Patricia Ash RN [facility] Work Phone: Comment on above: Method: Oral 07-24-2007 14:23-0400 Body weight 94.35 kg Patricia Ash RN [facility] Work Phone: 07-24-2007 14:23-0400 BP Diastolic 66 mm[Hg] Patricia Ash RN [facility] Work Phone: Comment on above: Patient Position: Sitting; Cuff Location : Left Arm; Cuff Size: Standard 07-24-2007 14:23-0400 BP Systolic 118 mm[Hg] Patricia Ash RN [facility] Work Phone: Comment on above: Patient Position: Sitting; Cuff Location : Left Arm; Cuff Size: Standard 07-24-2007 14:23-0400 BSA (Body Surface Area) 2.07 m2 Patricia Ash RN [facility] Work Phone: 07-24-2007 14:23-0400 Head Circumference 0 cm Afsaneh Green [facility] Work Phone: 07-24-2007 14:23-0400 Head Occipital-frontal circumference 0 cm Patricia Ash RN [facility]; [facility] Work Phone: 07-24-2007 14:23-0400 Height 171.45 cm Patricia Ash RN [facility] Work Phone: 07-24-2007 14:23-0400 Pulse (Heart Rate) 64 /min Patricia Ash RN [facility] Work Phone: Comment on above: Pattern: Regular 07-24-2007 14:23-0400 Respiratory Rate 16 /min Patricia Ash RN [facility] Work Phone: Comment on above: Pattern: Unlabored 07-20-2007 09:24-0400 BMI (Body Mass Index) 32.1 kg/m2 [facility] Work Phone: 07-20-2007 09:24-0400 Body Temperature 97.3 [degF] [facility] Work Phone: Comment on above: Method: Oral 07-20-2007 09:24-0400 Body weight 94.35 kg [facility] Work Phone: 07-20-2007 09:24-0400 BP Diastolic 80 mm[Hg] [facility] Work Phone: Comment on above: Patient Position: Sitting; Cuff Location : Left Arm; Cuff Size: Standard 07-20-2007 09:24-0400 BP Systolic 130 mm[Hg] [facility] Work Phone: Comment on above: Patient Position: Sitting; Cuff Location : Left Arm; Cuff Size: Standard 07-20-2007 09:24-0400 BSA (Body Surface Area) 2.07 m2 [facility] Work Phone: 07-20-2007 09:24-0400 [facility]um[facility]: 07-20-2007 09:24-0400 Head Occipital-frontal circumference 0 cm [facility]; [facility] Work Phone: 07-20-2007 09:24-0400 Height 171.45 cm [facility] Work Phone: 07-20-2007 09:24-0400 Pulse (Heart Rate) 80 /min [facility] Work Phone: Comment on above: Pattern: Regular 07-20-2007 09:24-0400 Respiratory Rate 18 /min [facility] Work Phone: Comment on above: Pattern: Unlabored 07-19-2007 09:29-0400 Body Temperature 97.6 [degF] SOFIE Zamora [facility] Work Phone: Comment on above: Method: Oral 07-19-2007 09:29-0400 Body weight 0 kg SOFIE Zamora DENIA [facility] Work Phone: 07-19-2007 09:29-0400 BP Diastolic 78 mm[Hg] SOFIEGEOFFREY Zamora [facility] Work Phone: Comment on above: Patient Position: Sitting; Cuff Location : Left Arm; Cuff Size: Standard 07-19-2007 09:29-0400 BP Systolic 116 mm[Hg] SOFIE Noah [facility] Work Phone: Comment on above: Patient Position: Sitting; Cuff Location : Left Arm; Cuff Size: Standard 07-19-2007 09:29-0400 Head Circumference 0 cm Afsaneh Renaeon [facility] Work Phone: 07-19-2007 09:29-0400 Head Occipital-frontal circumference 0 cm SOFIE Zamora LPN [facility]; [facility] Work Phone: 07-19-2007 09:29-0400 Height 0 cm SOFIEGEOFFREY Zamora [employer] [facility] Work Phone: 07-19-2007 09:29-0400 Pulse (Heart Rate) 70 /min SOFIE Noah [employer] [facility] Work Phone: Comment on above: Pattern: Regular 07-19-2007 09:29-0400 Respiratory Rate 20 /min SOFIE Noah [facility] Work Phone: Comment on above: Pattern: Unlabored 07-18-2007 09:44-0400 Body Temperature 98.8 [degF] SOFIE Zamora LPN [facility] Work Phone: Comment on above: Method: Oral 07-18-2007 09:44-0400 Body weight 0 kg SOFIE Zamora LPN [facility] Work Phone: 07-18-2007 09:44-0400 BP Diastolic 74 mm[Hg] SOFIE Zamora [employer] [facility] Work Phone: Comment on above: Patient Position: Sitting; Cuff Location : Left Arm; Cuff Size: Standard 07-18-2007 09:44-0400 BP Systolic 118 mm[Hg] SOFIE Zamora LPN [facility] Work Phone: Comment on above: Patient Position: Sitting; Cuff Location : Left Arm; Cuff Size: Standard 07-18-2007 09:44-0400 Head Circumference 0 cm Afsaneh Green [facility] Work Phone: 07-18-2007 09:44-0400 Head Occipital-frontal circumference 0 cm SOFIE Zamora [employer] [facility]; [facility] Work Phone: 07-18-2007 09:44-0400 Height 0 cm SOFIE Zamora [employer] [facility] Work Phone: 07-18-2007 09:44-0400 Pulse (Heart Rate) 74 /min SOFIE Zamora [employer] [facility] Work Phone: Comment on above: Pattern: Regular 07-18-2007 09:44-0400 Respiratory Rate 20 /min SOFIE Zamora LPN [facility] Work Phone: Comment on above: Pattern: Unlabored 07-17-2007 16:03-0400 BMI (Body Mass Index) 32.1 kg/m2 Carey Neff [facility] Work Phone: 07-17-2007 16:03-0400 Body Temperature 98.5 [degF] Carey Neff [facility] Work Phone: Comment on above: Method: Oral 07-17-2007 16:03-0400 Body weight 94.35 kg Carey Neff LPN [facility] Work Phone: 07-17-2007 16:03-0400 BP Diastolic 72 mm[Hg] Carey Neff LPN [facility] Work Phone: Comment on above: Patient Position: Sitting; Cuff Location : Left Arm; Cuff Size: Standard 07-17-2007 16:03-0400 BP Systolic 115 mm[Hg] Carey Neff LPN [facility] Work Phone: Comment on above: Patient Position: Sitting; Cuff Location : Left Arm; Cuff Size: Standard 07-17-2007 16:03-0400 BSA (Body Surface Area) 2.07 m2 Carey Neff LPN [facility] Work Phone: 07-17-2007 16:03-0400 Head Circumference 0 cm Afsaneh Green [facility] Work Phone: 07-17-2007 16:03-0400 Head Occipital-frontal circumference 0 cm Carey Neff LPN [facility]; [facility] Work Phone: 07-17-2007 16:03-0400 Height 171.45 cm Carey Neff LPN [facility] Work Phone: 07-17-2007 16:03-0400 Pulse (Heart Rate) 76 /min Carey Neff LPN [facility] Work Phone: Comment on above: Pattern: Regular 07-17-2007 16:03-0400 Respiratory Rate 20 /min Carey Neff LPN [facility] Work Phone: Comment on above: Pattern: Unlabored 04-28-2007 07:54-0400 Body Temperature 98.1 [degF] Leticia Navarro [facility] Work Phone: Comment on above: Method: Oral 04-28-2007 07:54-0400 Body weight 0 kg Leticia Navarro [facility] Work Phone: 04-28-2007 07:54-0400 Head Circumference 0 cm Afsanehomari Green [facility] Work Phone: 04-28-2007 07:54-0400 Head Occipital-frontal circumference 0 cm Leticia Navarro [facility]; [facility] Work Phone: 04-28-2007 07:54-0400 Height 0 cm Leticia Navarro [facility] Work Phone: 04-28-2007 07:54-0400 Pulse (Heart Rate) 78 /min Leticia Navarro [facility] Work Phone: Comment on above: Pattern: Regular 04-28-2007 07:54-0400 Respiratory Rate 16 /min Leticia Navarro [facility] Work Phone: Comment on above: Pattern: Unlabored 04-27-2007 08:41-0400 Body Temperature 98.3 [degF] Patricia Ash [facility] Work Phone: Comment on above: Method: Oral 04-27-2007 08:41-0400 Body weight 0 kg Patricia Ash [facility] Work Phone: 04-27-2007 08:41-0400 BP Diastolic 64 mm[Hg] Patricia Ash [facility] Work Phone: Comment on above: Patient Position: Sitting; Cuff Location : Right Arm; Cuff Size: Standard 04-27-2007 08:41-0400 BP Systolic 118 mm[Hg] Patricia Ash [facility] Work Phone: Comment on above: Patient Position: Sitting; Cuff Location : Right Arm; Cuff Size: Standard 04-27-2007 08:41-0400 Head Circumference 0 cm Afsaneh Green [facility] Work Phone: 04-27-2007 08:41-0400 Head Occipital-frontal circumference 0 cm Patricia Ash [facility]; [facility] Work Phone: 04-27-2007 08:41-0400 Height 0 cm Patricia Ash [facility] Work Phone: 04-27-2007 08:41-0400 Pulse (Heart Rate) 72 /min Patricia Ash [facility] Work Phone: Comment on above: Pattern: Regular 04-27-2007 08:41-0400 Respiratory Rate 20 /min Patricia Ash [facility] Work Phone: Comment on above: Pattern: Unlabored 04-26-2007 08:22-0400 Body Temperature 97.9 [degF] Patricia Ash [facility] Work Phone: Comment on above: Method: Oral 04-26-2007 08:22-0400 Body weight 0 kg Patricia Ash [facility] Work Phone: 04-26-2007 08:22-0400 BP Diastolic 70 mm[Hg] Patricia Ash [facility] Work Phone: Comment on above: Patient Position: Sitting; Cuff Location : Right Arm; Cuff Size: Standard 04-26-2007 08:22-0400 BP Systolic 124 mm[Hg] Patricia Ash [facility] Work Phone: Comment on above: Patient Position: Sitting; Cuff Location : Right Arm; Cuff Size: Standard 04-26-2007 08:22-0400 Head Circumference 0 cm Afsaneh Nelida [facility] Work Phone: 04-26-2007 08:22-0400 Head Occipital-frontal circumference 0 cm Patricia Ash [facility]; [facility] Work Phone: 04-26-2007 08:22-0400 Height 0 cm Patricia Ash [facility] Work Phone: 04-26-2007 08:22-0400 Pulse (Heart Rate) 84 /min Patricia Ash [facility] Work Phone: Comment on above: Pattern: Regular 04-26-2007 08:22-0400 Respiratory Rate 20 /min Patricia Ash [facility] Work Phone: Comment on above: Pattern: Unlabored 04-25-2007 08:27-0400 Body Temperature 98.1 [degF] Leticia Navarro [facility] Work Phone: Comment on above: Method: Oral 04-25-2007 08:27-0400 Body weight 0 kg Leticia Navarro [facility] Work Phone: 04-25-2007 08:27-0400 BP Diastolic 60 mm[Hg] Leticia Navarro [facility] Work Phone: Comment on above: Patient Position: Sitting; Cuff Location : Left Arm; Cuff Size: Standard 04-25-2007 08:27-0400 BP Systolic 124 mm[Hg] Leticia [facility] Work Phone: Comment on above: Patient Position: Sitting; Cuff Location : Left Arm; Cuff Size: Standard 04-25-2007 08:27-0400 Head Circumference 0 cm Afsaneh Green [facility] Work Phone: 04-25-2007 08:27-0400 Head Occipital-frontal circumference 0 cm Leticia Navarro [facility]; [facility] Work Phone: 04-25-2007 08:27-0400 Height 0 cm Leticia [facility] Work Phone: 04-25-2007 08:27-0400 Pulse (Heart Rate) 80 /min Leticia [facility] Work Phone: Comment on above: Pattern: Regular 04-25-2007 08:27-0400 Respiratory Rate 16 /min Leticia [facility] Work Phone: Comment on above: Pattern: Unlabored 04-24-2007 10:39-0400 Body Temperature 97.5 [degF] Leticia [facility] Work Phone: Comment on above: Method: Oral 04-24-2007 10:39-0400 Body weight 0 kg Leticia [facility] Work Phone: 04-24-2007 10:39-0400 Head Circumference 0 cm Afsaneh [facility] Work Phone: 04-24-2007 10:39-0400 Head Occipital-frontal circumference 0 cm Leticia [facility]; [facility] Work Phone: 04-24-2007 10:39-0400 Height 0 cm Leticia [facility] Work Phone: 04-24-2007 10:39-0400 Pulse (Heart Rate) 68 /min Leticia [facility] Work Phone: Comment on above: Pattern: Regular 04-24-2007 10:39-0400 Respiratory Rate 16 /min Leticia [facility] Work Phone: Comment on above: Pattern: Unlabored 04-23-2007 08:56-0400 Body weight 0 kg Afsaneh Nelida DO Work Phone: [facility] Work Phone: 04-23-2007 08:56-0400 BP Diastolic 72 mm[Hg] Afsaneh Nelida DO Work Phone: [facility] Work Phone: Comment on above: Patient Position: Sitting; Cuff Location : Undefined; Cuff Size: Undefined 04-23-2007 08:56-0400 BP Systolic 122 mm[Hg] Afsaneh Nelida DO Work Phone: [facility] Work Phone: Comment on above: Patient Position: Sitting; Cuff Location : Undefined; Cuff Size: Undefined 04-23-2007 08:56-0400 Head Circumference 0 cm Afsaneh Nelida [facility] Work Phone: 04-23-2007 08:56-0400 Head Occipital-frontal circumference 0 cm Afsaneh Nelida DO Work Phone: [facility]; [facility] Work Phone: 04-23-2007 08:56-0400 Height 0 cm Afsaneh Nelida DO Work Phone: [facility] Work Phone: 04-23-2007 08:56-0400 Pulse (Heart Rate) 74 /min Afsaneh Nelida DO Work Phone: [facility] Work Phone: Comment on above: Pattern: Regular 04-23-2007 08:56-0400 Respiratory Rate 12 /min Afsaneh Nelida DO Work Phone: [facility] Work Phone: Comment on above: Pattern: Unlabored 04-22-2007 08:47-0400 Body weight 0 kg Afsaneh Nelida DO Work Phone: [facility] Work Phone: 04-22-2007 08:47-0400 BP Diastolic 76 mm[Hg] Afsaneh Nelida DO Work Phone: [facility] Work Phone: Comment on above: Patient Position: Sitting; Cuff Location : Undefined; Cuff Size: Undefined 04-22-2007 08:47-0400 BP Systolic 128 mm[Hg] Afsaneh Nelida DO Work Phone: [facility] Work Phone: Comment on above: Patient Position: Sitting; Cuff Location : Undefined; Cuff Size: Undefined 04-22-2007 08:47-0400 Head Circumference 0 cm Afsaneh Nelida [facility] Work Phone: 04-22-2007 08:47-0400 Head Occipital-frontal circumference 0 cm Afsaneh Nelida DO Work Phone: [facility]; [facility] Work Phone: 04-22-2007 08:47-0400 Height 0 cm Afsaneh Nelida DO Work Phone: [facility] Work Phone: 04-22-2007 08:47-0400 Pulse (Heart Rate) 77 /min Afsaneh Nelida DO Work Phone: [facility] Work Phone: Comment on above: Pattern: Regular 04-22-2007 08:47-0400 Respiratory Rate 10 /min Afsaneh Nelida DO Work Phone: [facility] Work Phone: Comment on above: Pattern: Unlabored 04-21-2007 08:18-0400 Body Temperature 97 [degF] Leticia Navarro [facility] Work Phone: Comment on above: Method: Oral 04-21-2007 08:18-0400 Body weight 0 kg Leticia Navarro [facility] Work Phone: 04-21-2007 08:18-0400 BP Diastolic 62 mm[Hg] Leticia Navarro [facility] Work Phone: Comment on above: Patient Position: Sitting; Cuff Location : Right Arm; Cuff Size: Standard 04-21-2007 08:18-0400 BP Systolic 110 mm[Hg] Leticia Navarro [facility] Work Phone: Comment on above: Patient Position: Sitting; Cuff Location : Right Arm; Cuff Size: Standard 04-21-2007 08:18-0400 Head Circumference 0 cm Afsanehomari Green [facility] Work Phone: 04-21-2007 08:18-0400 Head Occipital-frontal circumference 0 cm Leticia Navarro [facility]; [facility] Work Phone: 04-21-2007 08:18-0400 Height 0 cm Leticia [facility] Work Phone: 04-21-2007 08:18-0400 Pulse (Heart Rate) 64 /min Leticia [facility] Work Phone: Comment on above: Pattern: Regular 04-21-2007 08:18-0400 Respiratory Rate 16 /min Leticia [facility] Work Phone: Comment on above: Pattern: Unlabored 04-20-2007 09:16-0400 BMI (Body Mass Index) 32.1 kg/m2 Patricia Ash [facility] Work Phone: 04-20-2007 09:16-0400 Body Temperature 98.5 [degF] Patricia Ash [facility] Work Phone: Comment on above: Method: Oral 04-20-2007 09:16-0400 Body weight 94.35 kg Patricia Ash [facility] Work Phone: 04-20-2007 09:16-0400 BP Diastolic 60 mm[Hg] Patricia Ash [facility] Work Phone: Comment on above: Patient Position: Sitting; Cuff Location : Left Arm; Cuff Size: Standard 04-20-2007 09:16-0400 BP Systolic 120 mm[Hg] Patricia Ash [facility] Work Phone: Comment on above: Patient Position: Sitting; Cuff Location : Left Arm; Cuff Size: Standard 04-20-2007 09:16-0400 BSA (Body Surface Area) 2.07 m2 Patricia Ash [facility] Work Phone: 04-20-2007 09:16-0400 Head Circumference 0 cm Afsanehomari Green [facility] Work Phone: 04-20-2007 09:16-0400 Head Occipital-frontal circumference 0 cm Patricia Ash [facility]; [facility] Work Phone: 04-20-2007 09:16-0400 Height 171.45 cm Patricia Ash [facility] Work Phone: 04-20-2007 09:16-0400 Pulse (Heart Rate) 64 /min Patricia Ash [facility] Work Phone: Comment on above: Pattern: Regular 04-20-2007 09:16-0400 Respiratory Rate 16 /min Patricia Ash [facility] Work Phone: Comment on above: Pattern: Unlabored 04-19-2007 08:13-0400 BMI (Body Mass Index) 33.33 kg/m2 Carey Neff DENIA [facility] Work Phone: 04-19-2007 08:13-0400 Body Temperature 98.6 [degF] Carey Tawanda LOZA [facility] Work Phone: Comment on above: Method: Oral 04-19-2007 08:13-0400 Body weight 97.98 kg Carey Neff DENIA [facility] Work Phone: 04-19-2007 08:13-0400 BP Diastolic 74 mm[Hg] Carey Tawanda [facility] Work Phone: Comment on above: Patient Position: Sitting; Cuff Location : Left Arm; Cuff Size: Standard 04-19-2007 08:13-0400 BP Systolic 122 mm[Hg] Carey Neff DENIA [facility] Work Phone: Comment on above: Patient Position: Sitting; Cuff Location : Left Arm; Cuff Size: Standard 04-19-2007 08:13-0400 BSA (Body Surface Area) 2.1 m2 Carey Neff DENIA [facility] Work Phone: 04-19-2007 08:13-0400 Head Circumference 0 cm Afsaneh Green [facility] Work Phone: 04-19-2007 08:13-0400 Head Occipital-frontal circumference 0 cm Carey Neff LPN [facility]; [facility] Work Phone: 04-19-2007 08:13-0400 Height 171.45 cm Carey Neff LPN [facility] Work Phone: 04-19-2007 08:13-0400 Pulse (Heart Rate) 74 /min Carey Neff LPN [facility] Work Phone: Comment on above: Pattern: Regular 04-19-2007 08:13-0400 Respiratory Rate 19 /min Carey Neff LPN [facility] Work Phone: Comment on above: Pattern: Unlabored 01-31-2007 10:11-0400 Body Temperature 97.6 [degF] SOFIE Zamora LPN [facility] Work Phone: Comment on above: Method: Oral 01-31-2007 [id number]:[id number] Body weight 0 kg SOFIE Zamora LPN [facility] Work Phone: 01-31-2007 10:11-0400 BP Diastolic 74 mm[Hg] SOFIE Zamora [employer] [facility] Work Phone: Comment on above: Patient Position: Sitting; Cuff Location : Left Arm; Cuff Size: Standard 01-31-2007 10:11-0400 BP Systolic 124 mm[Hg] SOFIE Zamora LPN [facility] Work Phone: Comment on above: Patient Position: Sitting; Cuff Location : Left Arm; Cuff Size: Standard 01-31-2007 10:110400 Head Circumference 0 cm Afsaneh Green [facility] Work Phone: 01-31-2007 10:11-0400 Head Occipital-frontal circumference 0 cm SOFIE Zamora [employer] [facility] Work Phone: 01-31-2007 10:110400 Height 0 cm SOFIE Zamora LPN [facility] Work Phone: 01-31-2007 10:11-0400 Pulse (Heart Rate) 76 /min SOFIE Zamora [employer] [facility] Work Phone: Comment on above: Pattern: Regular 01-31-2007 10:11-0400 Respiratory Rate 20 /min SOFIE Zamora LPN [facility] Work Phone: Comment on above: Pattern: Unlabored 01-30-2007 09:44-0400 Body Temperature 97.7 [degF] SOFIE Zamora LPN [facility] Work Phone: Comment on above: Method: Oral 01-30-2007 09:44-0400 Body weight 0 kg SOFIE Zamora LPN [facility] Work Phone: 01-30-2007 09:44-0400 BP Diastolic 78 mm[Hg] SOFIE Zamora LPN [facility] Work Phone: Comment on above: Patient Position: Sitting; Cuff Location : Left Arm; Cuff Size: Standard 01-30-2007 09:44-0400 BP Systolic 118 mm[Hg] SOFIE Zamora LPN [facility] Work Phone: Comment on above: Patient Position: Sitting; Cuff Location : Left Arm; Cuff Size: Standard 01-30-2007 09:44-0400 Head Circumference 0 cm Afsaneh Green [facility] Work Phone: 01-30-2007 09:44-0400 Head Occipital-frontal circumference 0 cm SOFIE Zamora LPN [facility] Work Phone: 01-30-2007 09:44-0400 Height 0 cm SOFIE Zamora LPN [facility] Work Phone: 01-30-2007 09:44-0400 Pulse (Heart Rate) 70 /min SOFIE Zamora LPN [facility] Work Phone: Comment on above: Pattern: Regular 01-30-2007 09:44-0400 Respiratory Rate 20 /min SOFIE Zamora LPN [facility] Work Phone: Comment on above: Pattern: Unlabored 01-29-2007 09:05-0400 Body weight 0 kg Afsaneh Renaeon DO Work Phone: [facility] Work Phone: 01-29-2007 09:05-0400 BP Diastolic 70 mm[Hg] Afsaneh Nelida DO Work Phone: [facility] Work Phone: Comment on above: Patient Position: Sitting; Cuff Location : Undefined; Cuff Size: Undefined 01-29-2007 09:05-0400 BP Systolic 126 mm[Hg] Afsaneh Nelida DO Work Phone: [facility] Work Phone: Comment on above: Patient Position: Sitting; Cuff Location : Undefined; Cuff Size: Undefined 01-29-2007 09:05-0400 Head Circumference 0 cm Afsaneh Nelida [facility] Work Phone: 01-29-2007 09:05-0400 Head Occipital-frontal circumference 0 cm Afsaneh Nelida DO Work Phone: [facility]; [facility] Work Phone: 01-29-2007 09:05-0400 Height 0 cm Afsaneh Nelida DO Work Phone: [facility] Work Phone: 01-29-2007 09:05-0400 Pulse (Heart Rate) 72 /min Afsaneh Nelida DO Work Phone: [facility] Work Phone: Comment on above: Pattern: Regular 01-29-2007 09:05-0400 Respiratory Rate 10 /min Afsaneh Nelida DO Work Phone: [facility] Work Phone: Comment on above: Pattern: Unlabored 01-28-2007 09:33-0400 Body weight 0 kg Afsaneh Nelida DO Work Phone: [facility] Work Phone: 01-28-2007 09:33-0400 BP Diastolic 82 mm[Hg] Afsaneh Nelida DO Work Phone: [facility] Work Phone: Comment on above: Patient Position: Sitting; Cuff Location : Undefined; Cuff Size: Undefined 01-28-2007 09:33-0400 BP Systolic 119 mm[Hg] Afsaneh Nelida DO Work Phone: [facility] Work Phone: Comment on above: Patient Position: Sitting; Cuff Location : Undefined; Cuff Size: Undefined 01-28-2007 09:33-0400 Head Circumference 0 cm Afsaneh Green [facility] Work Phone: 01-28-2007 09:33-0400 Head Occipital-frontal circumference 0 cm Afsaneh Nelida DO Work Phone: [facility]; [facility] Work Phone: 01-28-2007 09:33-0400 Height 0 cm Afsaneh Renaeon DO Work Phone: [facility] Work Phone: 01-28-2007 09:33-0400 Pulse (Heart Rate) 76 /min Afsaneh Renaeon DO Work Phone: [facility] Work Phone: Comment on above: Pattern: Regular 01-28-2007 09:33-0400 Respiratory Rate 10 /min Afsaneh Green DO Work Phone: [facility] Work Phone: Comment on above: Pattern: Undefined 01-27-2007 09:41-0400 Body Temperature 97.7 [degF] SOFIE Zamora LPN [facility] Work Phone: Comment on above: Method: Oral 01-27-2007 09:41-0400 Body weight 0 kg SOFIE Zamora LPN [facility] Work Phone: 01-27-2007 09:41-0400 BP Diastolic 80 mm[Hg] SOFIE Zamora [employer] [facility] Work Phone: Comment on above: Patient Position: Sitting; Cuff Location : Left Arm; Cuff Size: Standard 01-27-2007 09:41-0400 BP Systolic 120 mm[Hg] SOFIE Zamora LPN [facility] Work Phone: Comment on above: Patient Position: Sitting; Cuff Location : Left Arm; Cuff Size: Standard 01-27-2007 09:41-0400 Head Circumference 0 cm Afsaneh Green [facility] Work Phone: 01-27-2007 09:41-0400 Head Occipital-frontal circumference 0 cm SOFIE Zamora LPN [facility]; [facility] Work Phone: 01-27-2007 09:41-0400 Height 0 cm SOFIE Zamora LPN [facility] Work Phone: 01-27-2007 09:41-0400 Pulse (Heart Rate) 80 /min SOFIE Zamora LPN [facility] Work Phone: Comment on above: Pattern: Regular 01-27-2007 09:41-0400 Respiratory Rate 20 /min SOFIE Zamora LPN [facility] Work Phone: Comment on above: Pattern: Unlabored 01-26-2007 09:43-0400 Body Temperature 97.7 [degF] SOFIE Zamora LPN [facility] Work Phone: Comment on above: Method: Oral 01-26-2007 09:43-0400 Body weight 0 kg SOFIE Zamora LPN [facility] Work Phone: 01-26-2007 09:43-0400 BP Diastolic 82 mm[Hg] SOFIE Zamora [employer] [facility] Work Phone: Comment on above: Patient Position: Sitting; Cuff Location : Left Arm; Cuff Size: Standard 01-26-2007 09:43-0400 BP Systolic 124 mm[Hg] SOFIE Zamora LPN [facility] Work Phone: Comment on above: Patient Position: Sitting; Cuff Location : Left Arm; Cuff Size: Standard 01-26-2007 09:43-0400 Head Circumference 0 cm Afsaneh Green [facility] Work Phone: 01-26-2007 09:43-0400 Head Occipital-frontal circumference 0 cm SOFIE Zamora [employer] [facility]; [facility] Work Phone: 01-26-2007 09:43-0400 Height 0 cm SOFIE Zamora LPN [facility] Work Phone: 01-26-2007 09:43-0400 Pulse (Heart Rate) 88 /min SOFIE Zamora [employer] [facility] Work Phone: Comment on above: Pattern: Regular 01-26-2007 09:43-0400 Respiratory Rate 20 /min SOFIE Zamora [facility] Work Phone: Comment on above: Pattern: Unlabored 01-25-2007 09:27-0400 BMI (Body Mass Index) 33.33 kg/m2 Carey Neff LPN [facility] Work Phone: 01-25-2007 09:27-0400 Body Temperature 97.5 [degF] Carey Neff [employer] [facility] Work Phone: Comment on above: Method: Oral 01-25-2007 09:27-0400 Body weight 97.98 kg Carey Neff LPN [facility] Work Phone: 01-25-2007 09:27-0400 BP Diastolic 74 mm[Hg] Carey Neff [employer] [facility] Work Phone: Comment on above: Patient Position: Sitting; Cuff Location : Left Arm; Cuff Size: Standard 01-25-2007 09:27-0400 BP Systolic 124 mm[Hg] Carey Neff LPN [facility] Work Phone: Comment on above: Patient Position: Sitting; Cuff Location : Left Arm; Cuff Size: Standard 01-25-2007 09:27-0400 BSA (Body Surface Area) 2.1 m2 Carey Neff LPN [facility] Work Phone: 01-25-2007 09:27-0400 Head Circumference 0 cm Afsaneh Green [facility] Work Phone: 01-25-2007 09:27-0400 Head Occipital-frontal circumference 0 cm Carey Neff [employer] [facility]; [facility] Work Phone: 01-25-2007 09:27-0400 Height 171.45 cm Carey Neff [employer] [facility] Work Phone: 01-25-2007 09:27-0400 Pulse (Heart Rate) 66 /min Carey Neff [employer] [facility] Work Phone: Comment on above: Pattern: Regular 01-25-2007 09:27-0400 Respiratory Rate 16 /min Carey Neff LPN [facility] Work Phone: Comment on above: Pattern: Unlabored 01-24-2007 09:28-0400 BMI (Body Mass Index) 33.33 kg/m2 Carey Neff LPN [facility] Work Phone: 01-24-2007 09:28-0400 Body Temperature 98.2 [degF] Carey Neff LPN [facility] Work Phone: Comment on above: Method: Oral 01-24-2007 09:280400 Body weight 97.98 kg Carey Neff LPN [facility] Work Phone: 01-24-2007 09:28-0400 BP Diastolic 72 mm[Hg] Carey Neff LPN [facility] Work Phone: Comment on above: Patient Position: Sitting; Cuff Location : Left Arm; Cuff Size: Standard 01-24-2007 09:28-0400 BP Systolic 122 mm[Hg] Carey Neff LPN [facility] Work Phone: Comment on above: Patient Position: Sitting; Cuff Location : Left Arm; Cuff Size: Standard 01-24-2007 09:280400 BSA (Body Surface Area) 2.1 m2 Carey Neff LPN [facility] Work Phone: 01-24-2007 09:28-0400 Head Circumference 0 cm Afsaneh Green [facility] Work Phone: 01-24-2007 09:28-0400 Head Occipital-frontal circumference 0 cm Carey Neff LPN [facility]; [facility] Work Phone: 01-24-2007 09:28-0400 Height 171.45 cm Carey Neff LPN [facility] Work Phone: 01-24-2007 09:28-0400 Pulse (Heart Rate) 62 /min Carey Neff LPN [facility] Work Phone: Comment on above: Pattern: Regular 01-24-2007 09:28-0400 Respiratory Rate 17 /min Carey Neff DENIA [facility] Work Phone: Comment on above: Pattern: Unlabored 2007 11:34-0400 Body Temperature 97.9 [degF] Afsaneh Green [facility] Work Phone: Comment on above: Method: Undefined 2007 11:34-0400 Body weight 0 kg Afsaneh Green [facility] Work Phone: 2007 11:34-0400 BP Diastolic 70 mm[Hg] Afsaneh Green [facility] Work Phone: Comment on above: Patient Position: Sitting; Cuff Location : Left Arm; Cuff Size: Standard 2007 11:34-0400 BP Systolic 112 mm[Hg] Afsaneh Green [facility] Work Phone: Comment on above: Patient Position: Sitting; Cuff Location : Left Arm; Cuff Size: Standard 2007 11:34-0400 Head Circumference 0 cm Afsaneh Green [facility] Work Phone: 2007 11:34-0400 Head Occipital-frontal circumference 0 cm Afsaneh Green DO Work Phone: [facility]; [facility] Work Phone: 2007 11:34-0400 Height 0 cm Afsaneh Green [facility] Work Phone: 2007 11:34-0400 Pulse (Heart Rate) 60 /min Afsaneh Green [facility] Work Phone: Comment on above: Pattern: Regular 2007 11:34-0400 Respiratory Rate 20 /min Afsaneh Green [facility] Work Phone: Comment on above: Pattern: Undefined 01-12-2007 13:05-0400 BMI (Body Mass Index) 33.33 kg/m2 Afsaneh Green [facility] Work Phone: 01-12-2007 13:05-0400 Body Temperature 98.6 [degF] Afsaneh Green [facility] Work Phone: Comment on above: Method: Undefined 01-12-2007 13:05-0400 Body weight 97.98 kg Afsaneh Green [facility] Work Phone: 01-12-2007 13:05-0400 BP Diastolic 76 mm[Hg] Afsaneh Green [facility] Work Phone: Comment on above: Patient Position: Sitting; Cuff Location : Left Arm; Cuff Size: Standard 01-12-2007 13:05-0400 BP Systolic 114 mm[Hg] Afsaneh Green [facility] Work Phone: Comment on above: Patient Position: Sitting; Cuff Location : Left Arm; Cuff Size: Standard 01-12-2007 13:05-0400 BSA (Body Surface Area) 2.1 m2 Afsaneh Renaeon [facility] Work Phone: 01-12-2007 13:05-0400 Head Circumference 0 cm Afsaneh Renaeon [facility] Work Phone: 01-12-2007 13:05-0400 Head Occipital-frontal circumference 0 cm Afsaneh Green DO Work Phone: [facility]; [facility] Work Phone: 01-12-2007 13:05-0400 Height 171.45 cm Afsaneh Nelida [facility] Work Phone: 01-12-2007 13:05-0400 Pulse (Heart Rate) 72 /min Afsaneh Green [facility] Work Phone: Comment on above: Pattern: Regular 01-12-2007 13:05-0400 Respiratory Rate 16 /min Afsaneh Green [facility] Work Phone: Comment on above: Pattern: Undefined Encounters Encounter Date Encounter Type Care Provider Facility Start: 04-17-2025 End: 04-17-[address] Afsaneh Green DO Work Phone: [facility] Work Phone: Start: 04-17-2025 End: 04-17-[address] Rory Sims MD -Laboratory Work Phone: Start: 04-17-2025 End: 04-17-2025 ambulatory Afsaneh Green Facility:[facility] Start: 12-21-2024 End: 12-21-2024 ambulatory Afsaneh Green Facility:[facility] Start: 08-23-2024 End: 08-23-2024 Telephone encounter Estela Day PA-C Work Phone: [facility] Comment on above: Appointment (Cx) Start: 08-15-2024 End: 08-15-2024 Subsequent hospital visit by physician [address] Comment on above: Type 2 diabetes antony itus with hyperglycemia (Multi) Start: 08-15-2024 End: 08-15-2024 ambulatory ALBION Mann [facility] Start: 08-09-2024 End: 08-09-2024 Patient encounter procedure [facility] Provider [facility] Start: 07-20-2024 End: 07-20-2024 Telephone encounter Estela Day PA-C Work Phone: Pain Management Comment on above: New POR referral Start: 07-16-2024 ambulatory Afsaneh Green Facilit y:[facility] Start: 07-10-2024 Encounter for genera l adult medical examination with abnormal findings Afsaneh Green [facility] Start: 06-28-2024 End: 06-28-2024 Telephone encounter Estela Day PA-C Work Phone: Pain Management Comment on above: [employer] PA Start: 06-26-2024 End: 06-26-2024 Refill Rory Schultz MD Work Phone: Pain Management Comment on above: Refill Request Start: 06-25-2024 End: 06-25-2024 Telephone encounter Rory Schultz MD Work Phone: [facility] Management Comment on above: Change in POR for BW C Refill Request Start: 06-15-2024 End: 06-15-2024 ambulatory Afsaneh Green Facility:[facility] Start: 06-06-2024 Patient encounter procedure [facility] Provider [facility] Start: 05-25-2024 End: 05-25-2024 ambulatory ESTELA Dinesh DAY Facility:[id number] Start: 05-25-2024 End: 05-25-2024 Patient encounter procedure Estela Day PA-C Work Phone: Pain Management Comment on above: 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 2] Start: 05-02-2024 End: 05-02-2024 ambulatory DANNA Chavez BARRERA Facility:[facility] Start: 05-02-2024 End: 05-02-2024 Office outpatient visit 25 minutes Ashutosh Hennessy APRN.[employer] Work Phone: [facility] Comment on above: Subacute cough (Prim arian Dx) Start: 05-02-2024 Telephone encounter Ashutosh garcia APRN.[employer] Work Phone: [facility] Comment on above: Results Start: 04-26-2024 Telephone encounter Estela Day PA-C Work Phone: Pain Management Comment on above: Request for C9 - sco oter left & cover Start: 04-04-2024 Telephone encounter Dawit Hernandez MD Work Phone: Pain Management Comment on above: Update on powerWC Start: 04-04-2024 End: 04-04-2024 Office outpatient visit 25 minutes Dawit Hernandez MD Work Phone: Pain Management Comment on above: 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); Complex regional pain syndrome type 1 of right lower extremity - BWC; Osteoarthritis of right knee, unspecified osteoarthritis type - BWC; Psychogenic pain - BWC Start: 04-04-2024 End: 04-04-2024 ambulatory DAWIT HERNANDEZ Facility:[id number] Start: 03-19-2024 Refill Estela christina PA-C Work Phone: Pain Management Comment on above: Refill Request Medication Problem Start: 02-27-2024 Refill Estela christina PA-C Work Phone: Pain Management Comment on above: Refill Request Start: 02-07-2024 End: 02-07-2024 Patient encounter procedure Estela Day PA-C Work Phone: Pain Management Comment on above: 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); Complex regional pain syndrome type 1 of right lower extremity; Osteoarthritis of right knee, unspecified osteoarthritis type - BWC; Psychogenic pain - BWC Start: 02-07-2024 End: 02-07-2024 ambulatory ESTELA DAY Facility:[id number] Start: 01-20-2024 Refill Estela christina PA-C Work Phone: Pain Management Comment on above: Refill Request Start: 01-12-2024 Refill Estela christina PA-C Work Phone: Pain Management Comment on above: Refill Request Start: 12-27-2023 End: 12-27-2023 Patient encounter procedure Estela Day PA-C Work Phone: Pain Management Comment on above: 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); Complex regional pain syndrome type 1 of right lower extremity; Osteoarthritis of right knee, unspecified osteoarthritis type - BWC; Psychogenic pain - BWC Start: 12-27-2023 End: 12-27-2023 ambulatory ESTELA DAY Facility:[id number] Start: 11-15-2023 End: 11-15-2023 ambulatory ESTELA DAY Facility:[id number] Start: 10-05-2023 End: 10-05-2023 Patient encounter procedure Estela PEPE-C Work Phone: Pain Management Comment on above: 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); Complex regional pain syndrome type 1 of right lower extremity; Osteoarthritis of right knee, unspecified osteoarthritis type - BWC; Psychogenic pain - BWC Start: 10-05-2023 End: 10-05-2023 ambulatory ESTELA DAY Facility:[id number] Start: 09-26-2023 Refill Estela christina PA-C Work Phone: Pain Management Comment on above: Refill Request Start: 09-16-2023 Telephone encounter Estela Day PA-C Work Phone: Pain Management Comment on above: Request for OT Eval Start: 07-19-2023 Refill Estela christina PA-C Work Phone: Pain Management Comment on above: Refill Request Start: 07-13-2023 End: 07-13-2023 Patient encounter procedure Estela Day PA-C Work Phone: Pain Management Comment on above: 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); Complex regional pain syndrome type 1 of right lower extremity - BWC; Osteoarthritis of right knee, unspecified osteoarthritis type - BWC; Psychogenic pain - BWC Start: 06-01-2023 End: 06-01-2023 Patient encounter procedure Estela Day PA-C Work Phone: Pain Management Comment on above: 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); Complex regional pain syndrome type 1 of right lower extremity - BWC; Osteoarthritis of right knee, unspecified osteoarthritis type - BWC; Psychogenic pain - BWC Start: 05-30-2023 Refill Estela christina PA-C Work Phone: Pain Management Comment on above: Refill Request Start: 04-22-2023 Refill Estela christina PA-C Work Phone: Pain Management Comment on above: Refill Request Start: 04-21-2023 Telephone encounter Dawit Hernandez MD Work Phone: Pain Management Comment on above: Methadone needs PA / contraindicated Refill Request Start: 04-20-2023 End: 04-20-2023 Office outpatient visit 25 minutes Dawit Hernandez MD Work Phone: Pain Management Comment on above: 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); Osteoarthritis of right knee, unspecified osteoarthritis type - BWC; Psychogenic pain - BWC Start: 04-19-2023 Telephone encounter Dawit Hernandez MD Work Phone: Pain Management Comment on above: Nucynta denied - BWC Start: 04-15-2023 Refill Estela christina PA-C Work Phone: Pain Management Comment on above: Refill Request Start: 03-10-2023 Refill Estela christina PA-C Work Phone: Pain Management Comment on above: Refill Request Start: 03-09-2023 End: 03-09-2023 Office outpatient visit 25 minutes Dawit Hernandez MD Work Phone: Pain Management Comment on above: 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); Osteoarthritis of right knee, unspecified osteoarthritis type - BWC; Psychogenic pain - BWC Start: 02-21-2023 Refill Estela christina PA-C Work Phone: Pain Management Comment on above: Refill Request Start: 01-26-2023 End: 01-26-2023 Office outpatient visit 25 minutes Dawit Hernandez MD Work Phone: Pain Management Comment on above: Reflex sympathetic d ystrophy of right leg - BWC (Primary Dx); Complex regional pain syndrome type 1 of left lower extremity - BWC; Osteoarthritis of right knee, unspecified osteoarthritis type - BWC Start: 01-12-2023 Refill Estela christina PA-C Work Phone: Pain Management Comment on above: Refill Request Start: 12-21-2022 Refill Estela christina PA-C Work Phone: Pain Management Comment on above: Refill Request Start: 12-14-2022 End: 12-14-2022 Patient encounter procedure Estela Day PA-C Work Phone: Pain Management Comment on above: 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); Reflex sympathetic dystrophy of right leg; Osteoarthritis of right knee, unspecified osteoarthritis type Start: 11-02-2022 End: 11-02-2022 Patient encounter procedure Estela Dinesh PEPE-C Work Phone: Pain Management Comment on above: 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); Reflex sympathetic dystrophy of right leg; Osteoarthritis of right knee, unspecified osteoarthritis type Start: 10-26-2022 Refill Estela christina PA-C Work Phone: Pain Management Comment on above: Refill Request Start: 10-18-2022 Refill Estela PEPE-C Work Phone: Pain Management Comment on above: Refill Request Start: 08-24-2022 Refill Estela PEPE-C Work Phone: Pain Management Comment on above: Refill Request Start: 07-12-2022 Refill Estela christina PA-C Work Phone: Pain Management Comment on above: Refill Request Start: 07-01-2022 Refill Estela christina PA-C Work Phone: Pain Management Comment on above: Refill Request Start: 06-30-2022 Refill Estela christina PA-C Work Phone: Pain Management Comment on above: Refill Request Start: 06-28-2022 End: 06-28-2022 Patient encounter procedure Estela PEPE-C Work Phone: Pain Management Comment on above: 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); Osteoarthritis of right knee, unspecified osteoarthritis type Start: 06-22-2022 Refill Estela christina PA-C Work Phone: Pain Management Comment on above: Refill Request Start: 05-17-2022 Telephone encounter Estela BASSC Work Phone: Pain Management Comment on above: Orders Start: 05-17-2022 End: 05-17-2022 Patient encounter procedure Estela Day PA-C Work Phone: Pain Management Comment on above: Reflex sympathetic d ystrophy of right leg - BWC (Primary Dx); Complex regional pain syndrome type 1 of left lower extremity; Osteoarthritis of right knee, unspecified osteoarthritis type Start: 04-27-2022 Patient encounter procedure [facility] Provider [facility] Department Start: 04-20-2022 Refill Estela christina PA-C Work Phone: Pain Management Comment on above: Refill Request Start: 03-29-2022 Chart abstracting Dawit Hernandez MD Work Phone: Pain Management Start: 03-08-2022 End: 03-08-2022 Subsequent hospital visit by physician Estela Day PA-C Work Phone: [facility] Comment on above: FOLLOW UP Start: 01-25-2022 End: 01-25-2022 Subsequent hospital visit by physician Dawit Hernandez MD Work Phone: [facility] Comment on above: FOLLOW UP Start: 12-14-2021 End: 12-14-2021 Subsequent hospital visit by physician Dawit Hernandez Work Phone: [facility] Comment on above: FOLLOW UP Start: 07-19-2011 End: 07-19-2011 Patient encounter procedure Afsaneh [facility] Start: 03-14-2011 End: 03-14-2011 Patient encounter procedure Afsaneh [facility] Start: 03-13-2011 End: 03-13-2011 Patient encounter procedure Afsaneh [facility] Start: 03-12-2011 End: 03-12-2011 Patient encounter procedure Afsaneh Green [facility] Start: 03-11-2011 End: 03-11-2011 Patient encounter procedure Afsaneh [facility] Start: 03-10-2011 End: 03-10-2011 Patient encounter procedure Afsaneh [facility] Start: 07-30-2009 End: 07-30-2009 Patient encounter procedure Afsaneh Green [facility] Start: 03-13-2009 End: 03-13-2009 Annotation/Addendum Afsaneh Green [facility] Start: 03-12-2009 End: 03-12-2009 Office outpatient visit 25 minutes Afsanehavis Green [facility] Start: 03-10-2009 End: 03-12-2009 Patient encounter procedure Afsaneh Green [facility] Start: 07-16-2008 End: 07-16-2008 Historical Summary Afsaneh Green [facility] Start: 03-20-2008 End: 03-20-2008 Patient encounter procedure Afsaneh Green [facility] Start: 12-21-2007 End: 12-21-2007 Patient encounter procedure Afsanehavis Green [facility] Start: 11-15-2007 End: 11-15-2007 Patient encounter procedure Afsanehavis Renaeon [facility] Start: 10-18-2007 End: 10-18-2007 Patient encounter procedure Afsaneh Nelida [facility] Start: 10-05-2007 End: 10-05-2007 Patient encounter procedure Afsaneh Nelida [facility] Start: 09-25-2007 End: 09-25-2007 Patient encounter procedure Afsanehavis Renaeon [facility] Start: 09-15-2007 End: 09-15-2007 Patient encounter procedure Afsanehavis Renaeon [facility] Start: 09-14-2007 End: 09-14-2007 Patient encounter procedure Afsanehavis Green [facility] Start: 09-13-2007 End: 09-13-2007 Patient encounter procedure Afsaneh Nelida [facility] Start: 09-12-2007 End: 09-13-2007 Office outpatient visit 10 minutes Afsaneh Nelida [facility] Start: 09-11-2007 End: 09-11-2007 Patient encounter procedure Afsaneh Nelida [facility] Start: 09-08-2007 End: 09-08-2007 Patient encounter procedure Afsaneh Nelida [facility] Start: 09-07-2007 End: 09-07-2007 Patient encounter procedure Afsanehavis Renaeon [facility] Start: 09-06-2007 End: 09-06-2007 Patient encounter procedure Afsaneh Nelida [facility] Start: 09-05-2007 End: 09-05-2007 Office outpatient visit 15 minutes Afsaneh Green [facility] Start: 09-04-2007 End: 09-04-2007 Patient encounter procedure Afsaneh Green [facility] Start: 09-01-2007 End: 09-01-2007 Patient encounter procedure Afsaneh Green [facility] Start: 08-31-2007 End: 08-31-2007 Office outpatient visit 15 minutes Afsaneh Green [facility] Start: 08-30-2007 End: 08-30-2007 Patient encounter procedure Afsaneh Green [facility] Start: 08-29-2007 End: 08-29-2007 Patient encounter procedure Afsaneh Green [facility] Start: 08-28-2007 End: 08-28-2007 Patient encounter procedure Afsaneh Green [facility] Start: 08-25-2007 End: 08-28-2007 Patient encounter procedure Afsaneh Green [facility] Start: 08-24-2007 End: 08-24-2007 Patient encounter procedure Afsaneh Renaeon [facility] Start: 08-23-2007 End: 08-23-2007 Patient encounter procedure Afsaneh Renaeon [facility] Start: 08-22-2007 End: 08-22-2007 Patient encounter procedure Afsaneh Renaeon [facility] Start: 08-21-2007 End: 08-21-2007 Patient encounter procedure Afsaneh Renaeon [facility] Start: 08-18-2007 End: 08-18-2007 Patient encounter procedure Afsaneh Renaeon [facility] Start: 08-17-2007 End: 08-17-2007 Patient encounter procedure Afsaneh Green [facility] Start: 08-16-2007 End: 08-16-2007 Patient encounter procedure Afsanehavis Renaeon [facility] Start: 08-15-2007 End: 08-15-2007 Patient encounter procedure Afsaneh Renaeon [facility] Start: 08-14-2007 End: 08-14-2007 Patient encounter procedure Afsaneh Green [facility] Start: 08-11-2007 End: 08-14-2007 Patient encounter procedure Afsanehavis Renaeon [facility] Start: 08-10-2007 End: 08-10-2007 Patient encounter procedure Afsaneh Green [facility] Start: 08-10-2007 End: 08-10-2007 Historical Summary Afsaneh Green [facility] Start: 08-09-2007 End: 08-09-2007 Patient encounter procedure Afsanehavis Renaeon [facility] Start: 08-08-2007 End: 08-08-2007 Patient encounter procedure Afsaneh Green [facility] Start: 08-07-2007 End: 08-07-2007 Patient encounter procedure Afsaneh Green [facility] Start: 08-06-2007 End: 08-06-2007 Patient encounter procedure Afsaneh Green [facility] Start: 08-05-2007 End: 08-06-2007 Patient encounter procedure Afsaneh Green [facility] Start: 08-04-2007 End: 08-04-2007 Patient encounter procedure Afsaneh Green [facility] Start: 08-03-2007 End: 08-03-2007 Office outpatient visit 15 minutes Afsanehavis Green [facility] Start: 08-02-2007 End: 08-02-2007 Patient encounter procedure Afsaneh Green [facility] Start: 08-01-2007 End: 08-01-2007 Patient encounter procedure Afsaneh Green [facility] Start: 07-31-2007 End: 07-31-2007 Patient encounter procedure Afsaneh Renaeon [facility] Start: 07-27-2007 End: 07-27-2007 Patient encounter procedure Afsaneh Green [facility] Start: 07-26-2007 End: 07-26-2007 Patient encounter procedure Afsaneh Green [facility] Start: 07-25-2007 End: 07-25-2007 Patient encounter procedure Afsaneh Green [facility] Start: 07-24-2007 End: 07-24-2007 Office outpatient visit 25 minutes Afsanehomari Green [facility] Start: 07-20-2007 End: 07-20-2007 Patient encounter procedure Afsaneh Green [facility] Start: 07-19-2007 End: 07-19-2007 Patient encounter procedure Afsaneh Green [facility] Start: 07-18-2007 End: 07-18-2007 Patient encounter procedure Afsaneh Green [facility] Start: 07-17-2007 End: 07-17-2007 Office outpatient visit 25 minutes Afsaneh Nelida [facility] Start: 05-25-2007 End: 05-25-2007 Historical Summary Afsaneh Green [facility] Start: 05-25-2007 End: 05-25-2007 Historical Summary Afsaneh Green [facility] Start: 04-28-2007 End: 04-28-2007 Patient encounter procedure Afsanehomari Green [facility] Start: 04-27-2007 End: 04-28-2007 Patient encounter procedure Afsaneh Green [facility] Start: 04-26-2007 End: 04-26-2007 Patient encounter procedure Afsaneh Green [facility] Start: 04-25-2007 End: 04-25-2007 Patient encounter procedure Afsaneh Green [facility] Start: 04-24-2007 End: 04-24-2007 Patient encounter procedure Afsaneh Green [facility] Start: 04-23-2007 End: 04-23-2007 Patient encounter procedure Afsaneh Green [facility] Start: 04-22-2007 End: 04-22-2007 Patient encounter procedure Afsaneh Green [facility] Start: 04-21-2007 End: 04-21-2007 Patient encounter procedure Afsaneh Green [facility] Start: 04-20-2007 End: 04-20-2007 Patient encounter procedure Afsaneh Green [facility] Start: 04-19-2007 End: 04-19-2007 Patient encounter procedure Afsaneh Green [facility] Start: 01-31-2007 End: 01-31-2007 Patient encounter procedure Afsaneh Green [facility] Start: 01-30-2007 End: 01-30-2007 Patient encounter procedure Afsaneh Green [facility] Start: 01-29-2007 End: 01-29-2007 Patient encounter procedure Afsaneh Green [facility] Start: 01-28-2007 End: 01-28-2007 Patient encounter procedure Afsaneh Green [facility] Start: 01-27-2007 End: 01-27-2007 Patient encounter procedure Afsaneh Green [facility] Start: 01-26-2007 End: 01-26-2007 Office outpatient visit 15 minutes Afsaneh Green [facility] Start: 01-25-2007 End: 01-25-2007 Patient encounter procedure Afsaneh Green [facility] Start: 01-24-2007 End: 01-24-2007 Patient encounter procedure Afsaneh Green [facility] Start: 2007 End: 01-24-2007 Patient encounter procedure Afsaneh Green [facility] Start: 01-12-2007 End: 01-12-2007 Patient encounter procedure Afsanehavis Green [facility] Physical examination Hairspring Vibrator [facility]; [facility] Work Phone: Procedures Date Procedure Procedure Detail Performing Clinician Start: 04-17-2025 Methadone measurement, urine Dr. Afsaneh Green DO Work Phone: Start: 05-02-2024 Radiologic exam chest 2 views Ashutosh Gerhard AMORENGINEER FIRST ASSISTANT Work Phone: Start: 08-27-2015 End: 08-27-2015 Echocardiogram Complete Comments: See Note; NOTES: [facility] Cardiovascular Services [address] [place] [address] Echo Complete 08/27/15 1307 MR#: [id number] Acct: [id number] Name: CONG HARRISON Rep #: [id number] : 1965 50 From: García Burger MD Attending Dr: OUT OF TOWN DOCTOR Status: REG I Ordering Dr: TIM CURRAN Date: 08/27/15 Location: [facility] Sex: M C Admitted: Procedure This was a 2D Doppler, Color Flow transthoracic echocardiogram. The study was technically difficult. Due to body habitus. Exam performed in department. Left Ventricle Normal size and thickness. The estimated ejection fraction is 65 %. Normal diastology for age. No regional wall motion abnormalities noted. Right Ventricle Normal size and thickness. Normal systolic function. Atria Normal left atrium. Normal right atrium. Normal atrial septum. Mitral Valve The mitral valve is structurally normal. No prolapse or stenosis seen. Tricuspid Valve Normal tricuspid valve. Trivial tricuspid valve insufficiency. Right ventricular systolic pressure estimated to be 22 mmHg. Aortic Valve Normal aortic valve. Trisinus/trileaflet aortic valve. Pulmonic Valve The pulmonic valve is not well visualized. Great Vessels Normal aortic root. Normal arch. Pericardium/Pleural No pericardial effusion. MMode/2D Measurements AND Calculations LVIDd: 4.4 cm IVSd: 1.3 cm Ao root diam: 3.1 cm LAV(MOD-bp): 54.6 ml LVIDs: 2.7 cm LVPWd: 1.1 cm Ao root area: 7.7 cm2 LAV(MOD-bp) Indexed: 24.6 ml /m2 RVDd: 3.2 cm FS: 38.3 % LA dimension: 4.1 cm LAV(MOD-sp2): 65.1 ml LAV(MOD-sp4): 39.7 ml LA A4 area: 17.0 cm2 RA A4 area: 17.8 cm2 Doppler Measurements AND Calculations MV E max shannan: Lat Peak E' Shannan: Med Peak E' Hsannan: Ao V2 max: 81.3 cm/sec 9.8 cm/sec 11.8 cm/sec 118.3 cm/sec MV A max shannan: Ao max P.6 mmHg 58.5 cm/sec MV E/A: 1.4 LV V1 max: 96.1 cm/sec PA V2 max: 115.2 cm/sec TR max shannan: 204.1 cm/sec E/E' lat: 8.3 LV V1 max P.7 mmHg PA max P.4 mmHg TR max P.7 mmHg E/E' med: 6.9 Interpretation Summary The study was technically difficult. The estimated ejection fraction is 65 %. Normal diastology for age. Right ventricular systolic pressure estimated to be 22 mmHg. There is no comparison study available. Ordering Physician: Tim Curran Referring Physician: OTD Performed By: Michelle Car, ANTONIO, RVT 08/27/15 1418 Date García Burger MD CC: Afsaneh Green DO; TIM CURRAN Date Dictated: 08/27/15 1307 Date Transcribed: 08/27/15 141 Napkin Machine Operator: Signed Afsaneh Green Start: 07-30-2015 End: 07-30-2015 Emergency Department Summary Comments: See Note; NOTES: [facility] Medical Records Department [address] [place] [address] Emergency Department Summary MR#: [id number] Acct: [id number] Name: CONG HARRISON Rep #: [id number] : 1965 50 From: Alvino Mcpherson MD PCP: Afsaneh Green DO Status: [facility] DATE OF SERVICE: 07/27/2015 CHIEF COMPLAINT: Kicks blackout. HISTORY OF PRESENT ILLNESS: This is a 50-year-old male, generally in good health, who states that a cow had jumped over a fence and he is kicked. He states the foot grazed the right side of his face and chest, but mostly hit his right elbow and wrist. He is most concerned with the pain in his elbow and wrist. There was no loss of consciousness or amnesia. He has been able to ambulate without difficulty. He has no chest pain or shortness of breath. No headache or vomiting. PHYSICAL EXAMINATION: VITAL SIGNS: Afebrile, slightly tachycardic at 112 on auscultation; however. HEART: Regular rate and rhythm. LUNGS: Clear. ABDOMEN: Soft. EXTREMITIES: He has active full range of motion x4 extremities. Neurovascularly intact with strong pulses. Normal distal sensation. Brisk capillary refill, but he does have some pain with active and passive range of motion in the elbow and wrist. There is no bony deformity. HEENT: He has no signs of skull fracture such as hemotympanum, mcghee sign, or raccoon eyes. There are no signs of any trauma to the face, neck or chest such as lacerations, contusions, hematomas or abrasions. EMERGENCY DEPARTMENT COURSE: It sounds like the patient's head, neck and chest injury was a very minor. He is not really concerned with this. Mostly, he is concerned about the bulk of the kick was to his elbow and wrist. X-rays of the elbow and wrist were obtained, which show no acute bony abnormalities, no fractures or dislocations. He was reassured. He was advised to rest, use ice, compression and elevation as well as anti-inflammatories and he was discharged home. IMPRESSION: 1. Right elbow contusion. 2. Right wrist contusion. DISPOSITION: Discharge. Dr. Alvino Mcpherson MD T: N[facility] JOB: [id number] 07/30/151 <Electronically signed by Alvino Mcpherson MD> Date Alvino Mcpherson MD Cosigner Signature (If Indicated): Date CC: Afsaneh Green DO Date Dictated: 07/27/152146 Date Transcribed: 07/27/152146 Napkin Machine Operator: Signed Afsaneh Green Start: 07-27-2015 End: 07-27-2015 Discharge Instruction Comments: See Note; NOTES: [facility] Medical Records Department [address] [place] [address] Discharge Instruction 07/27/152149 MR#: [id number] Acct: [id number] Name: CONG HARRISON Rep #: [id number] : 1965 50 From: Alvino Mcpherson MD PCP: Afsaneh Green DO: [facility] ER ED Disposition - Plan for ED Patient: Chief Complaint: Trauma Instructions: Contusions (Bruises) What to do if you have Problems For any increased pain, shortness of breath, bleeding, nausea or vomiting, chest pain, or any unexpected problems, contact your doctor. Call [facility] ([phone]) or report to the closest Emergency Room. Call 911 if necessary. 07/27/15 2150 <Electronically signed by Alvino Mcpherson MD> Date Alvino Mcpherson MD Cosigner Signature (If Indicated): Date CC: Afsaneh Coronado Start: 07-27-2015 End: 07-28-2015 Elbow min 3 Views Comments: See Note; NOTES: [facility] Imaging Services [address] [place] [address] Radiology Report MR#: [id number] Acct: [id number] Name: CONG HARRISON Rep #: [id number] : 1965 M 50 From: Siddharth Choudhary MD PCP: Afsaneh Green DO Status: [facility] ER Study: Elbow min 3 Views Date of Exam: 07/27/15 Exam# [id number] Ordering Dr: Alvino Mcpherson MD STUDY: X-RAY - RIGHT ELBOW REASON FOR EXAM: Male, 50 years old. Pain following injury. TECHNIQUE: 3 view(s) of the elbow. COMPARISON: None. FINDINGS: There is evidence of the degenerative spurs seen along the posterior aspect of the olecranon. There is a 1.2 cm sclerotic focus involving the radial head. This may represent a small bone island. Normal radiocapitellar and ulnotrochlear articulations. The soft tissue structures are unremarkable. IMPRESSION: The spur is seen at the level of the olecranon process of the proximal ulna. Electronically Signed: Siddharth Choudhary MD at 8:37 EDT Tel [phone], Service support [phone], RAD/Elbow min 3 Views IMPRESSION: The spur is seen at the level of the olecranon process of the proximal ulna. Electronically Signed: Siddharth Chuodhary MD at 8:37 EDT Tel [phone], Service support [phone], CC: Alvino Mcpherson MD; Afsaneh Green DO Napkin Machine Operator: Signed Afsaneh Green Start: 07-27-2015 End: 07-28-2015 Wrist min 3 Views Comments: See Note; NOTES: [facility] Imaging Services [address] [place] [address] Radiology Report MR#: [id number] Acct: [id number] Name: CONG HARRISON Rep #: [id number] : 1965 M 50 From: Siddharth Choudhary MD PCP: Afsaneh Green DO Status: [facility] Study: Wrist min 3 Views Date of Exam: 07/27/15 Exam# [id number] Ordering Dr: Alvino Mcpherson MD STUDY: X-RAY - RIGHT WRIST REASON FOR EXAM: Male, 50 years old. Pain following injury. TECHNIQUE: 3 view(s) of the wrist were obtained. COMPARISON: None. FINDINGS: Normal visualized distal radius and ulna. Normal radiocarpal articulation. Normal distal radioulnar articulation. Normal carpal bones. Normal carpal articulations. Normal carpometacarpal articulation of the thumb. Normal second through fifth carpometacarpal articulations. Normal visualized metacarpal bones. The soft tissue structures are unremarkable. IMPRESSION: Normal x-ray examination of the wrist. Electronically Signed: Siddharth Choudhary MD at 8:38 EDT Tel [phone], Service support [phone], RAD/Wrist min 3 Views IMPRESSION: Normal x-ray examination of the wrist. Electronically Signed: Siddharth Choudhary MD at 8:38 EDT Tel [phone], Service support [phone], CC: Alvino Mcpherson MD; Afsaneh Green DO Napkin Machine Operator: Signed Afsanhe Green Start: 11-05-2014 End: 11-05-2014 Emergency Department Summary Comments: See Note; NOTES: [facility] Medical Records Department [address] [place] [address] Emergency Department Summary MR#: [id number] Acct: [id number] Name: CONG HARRISON Rep #: [id number] : 1965 49 From: Estela Romero MD PCP: Afsaneh Green DO Status: [facility] ER DATE OF SERVICE: 10/31/2014 METHOD OF ARRIVAL: Private car. CHIEF COMPLAINT: Pain, right knee. PRIMARY CARE: Dr. Green. HISTORY OF PRESENT ILLNESS: A 49-year-old male with history of reflux sympathetic dystrophy, has had multiple surgeries, he has got a nerve stimulator, has had a left BKA. The patient comes in with right knee pain. States it started yesterday; however, he has had pain since 2003, but he also has had a right ACL meniscus injury in 2010 where he had surgery. The patient is in pain management. He is not aware of any new injury, denies any fever, chills, cough or otherwise symptoms. PHYSICAL EXAMINATION: VITAL SIGNS: Stable. Afebrile. HEENT: Unremarkable. NECK: Supple. LUNGS: Clear. HEART: Regular. ABDOMEN: Soft. EXTREMITIES: Left lower extremity remarkable for the left BKA. Right lower extremity, he has got some nonspecific tenderness about his knee. There is no erythema, no warmth, no effusion. His extensor mechanism is intact. I do not appreciate any laxity in the joint. He is able to move his joint well with no signs of any septic joint. Remainder of exam unremarkable. TESTS: Right knee films obtained, 5 views, does show some degenerative changes. EMERGENCY DEPARTMENT COURSE: The patient was given IM injection of Dilaudid. At this time, plan will be home. He would like to see Dr. Pickett locally. He will be referred to him. Return with any problems. CLINICAL IMPRESSION: 1. Right knee pain. 2. History of reflex sympathetic dystrophy. DISPOSITION: Home. MD Scotty Belcher C: Afsaneh Mann T: [facility] JOB: [id number] 11/05/14 0803 <Electronically signed by Estela Romero MD> Date Estela Romero MD CC: Afsaneh Green DO; Estela Pickett Date Dictated: 10/31/14 1331 Date Transcribed: 10/31/141330 Napkin Machine Operator: Signed Afsaneh Green Start: 10-31-2014 End: 10-31-2014 Discharge Instruction Comments: See Note; NOTES: [facility] Medical Records Department [address] [place] [address] Discharge Instruction 10/31/14 1328 MR#: [id number] Acct: [id number] Name: CONG HARRISON Rep #: [id number] : 1965 49 From: Estela Romero MD PCP: Afsaneh Green DO Status: REG ER ED Disposition - Plan for ED Patient: Disposition: Home Chief Complaint: Lower Extremity Injury Instructions: ED Knee Pain, Uncertain Cause Referrals: Afsaneh Green DO [Primary Care Provider] - Estela Pickett DO [STAFF PHYSICIAN] - 5-7 Days Additional Instructions: try to follow up with Dr Pickett. watch for new symptoms. What to do if you have Problems For any increased pain, shortness of breath, bleeding, nausea or vomiting, chest pain, or any unexpected problems, contact your doctor. Call [facility] ( [phone]) or report to the closest Emergency Room. Call 911 if necessary. 10/31/14 1329 <Electronically signed by Estela Romero MD> Date Estela Romero MD Cosigner Signature (If Indicated): Date CC: Afsaneh Coronado Start: 10-31-2014 End: 11-01-2014 Knee 4 or More Views Comments: See Note; NOTES: [facility] Imaging Services [address] [place] [address] Radiology Report MR#: [id number] Acct: [id number] Name: CONG HARRISON Rep #: [id number] : 1965 49 From: Susan Shaw MD PCP: Afsaneh Green DO Status: DEP ER Study: Knee 4 or More Views Date of Exam: 10/31/14 Exam# [id number] Ordering Dr: Estela Romero MD STUDY: X-RAY - RIGHT KNEE REASON FOR EXAM: Male, 49 years old. Trauma. Pain TECHNIQUE: 5 view(s) of the knee. COMPARISON: None. FINDINGS: Normal visualized distal femur. Normal visualized proximal tibia and fibula. Normal proximal tibiofibular articulation. There is severe degenerative arthrosis of the medial femorotibial compartment with severe joint space narrowing. Normal lateral femorotibial compartment. There is severe degenerative arthrosis of the patellofemoral articulation. The soft tissue structures are unremarkable. IMPRESSION: Degenerative arthrosis. Electronically Signed: Anai Shaw MD at 11:20 EST Tel , Service support [phone], CC: Afsaneh Green DO; Estela Romero MD Napkin Machine Operator: Signed Afsaneh Green Plan of Treatment Date Care Activity Detail Author Start: 04-07-2028 DTaP/Tdap/Td Vaccine s (2 - Td or Tdap) DTaP/Tdap/Td Vaccines (2 - Td or Tdap) [facility] Start: 04-07-2028 Urine microalbumin profile DTaP,Tdap,Td Vaccine (2 - Td or Tdap) [facility] Start: 04-17-[address] [facility] Start: 08-28-2024 End: 08-28-2024 Patient encounter procedure 08/28/2024 8:30 AM EDT Office Visit Pain Management [address] [place] [address] Estela Day PA-C [address] [place] [address] FU Pain Management Comment on above: FU Start: 07-01-2024 Covid-19 Vaccine ( season) Covid-19 Vaccine ( season) [facility] Start: 07-01-2024 Covid-19 Vaccine ( season) Covid-19 Vaccine ( season) [facility] Start: 07-01-2024 Influenza vaccination Influenza Vacc ine (#1) [facility] Start: 05-25-2024 End: 05-25-2024 Patient encounter procedure 05/25/2024 8:00 AM EDT Office Visit Pain Management [address] [place] [address] Estela Day, PA-C [address] [place] [address] FOLLOW UP Pain Management Comment on above: FOLLOW UP Start: 04-04-2024 End: 07-04-2024 TOXASSURE FLEX 23, URINE TOXASSURE FLEX 23, URINE Lab Routine Complex regional pain syndrome type 1 of left lower extremity - [facility] Expected: 04/04/2024, Expires: 07/04/2024 [facility] Work Phone: Comment on above: Expected: 04/04/2024 , Expires: 07/04/2024 Start: 04-04-2024 End: 04-04-2024 Patient encounter procedure 04/04/2024 8:15 AM EDT Office Visit Pain Management [address] [place] [address] Dawit Hernandez MD [address] [place] [address] FOLLOW UP Pain Management Comment on above: FOLLOW UP Start: 10-31-2023 Behavioral Health Screening Behavioral Health Screening [facility] Start: 10-31-2023 Depression Assessment Depression Ass essment [facility] Start: 10-05-2023 End: 01-04-2024 TOXASSURE FLEX 23, URINE TOXASSURE FLEX 23, URINE Lab Routine Complex regional pain syndrome type 1 of left lower extremity Complex regional pain syndrome type 1 of right lower extremity Expected: 10/05/2023, Expires: 01/04/2024 [facility] Work Phone: Comment on above: Expected: 10/05/2023 , Expires: 01/04/2024 Start: 07-01-2023 Covid-19 Vaccine () Covid-19 Vaccine () [facility] Start: 07-01-2023 Influenza vaccination [facility] Start: 04-19-2023 End: 04-19-2024 ECG COMPLETE ECG COMPLETE ECG Routine Drug therapy Expected: 04/19/2023, Expires: 04/19/2024 [facility] Work Phone: Comment on above: Expected: 04/19/2023 , Expires: 04/19/2024 Start: 03-09-2023 End: 05-09-2023 TOXASSURE FLEX 23, URINE TOXASSURE FLEX 23, URINE Lab Routine Expected: 03/09/2023, Expires: 05/09/2023 [facility] Work Phone: Comment on above: Expected: 03/09/2023 , Expires: 05/09/2023 Start: 10-31-2022 DEPRESSION ASSESSMENT DEPRESSION ASS ESSMENT [facility] Start: 07-01-2022 Influenza vaccination [facility] Start: 01-07-2022 COVID-19 VACCINE (3 - Booster for Omar series) COVID-19 VACCINE (3 - Booster for Omar series) [facility] Start: 11-04-2021 COVID-19 VACCINE (3 - Booster for Omar series) COVID-19 VACCINE (3 - Booster for Omar series) [facility] Start: 10-31-2021 DEPRESSION ASSESSMENT DEPRESSION ASS ESSMENT [facility] Start: 07-01-2021 Influenza vaccination INFLUENZA (#1) [facility] Start: 2021 PROSTATE CANCER SCREENING DISCUSSION PROSTATE CANCER SCREENING DISCUSSION [facility] Start: 2021 Prostate specific antigen measurement Prostate Cancer Screening Discussion [facility] Start: 01-24-2016 SHINGRIX VACCINE (1 of 2) SHINGRIX VACCINE (1 of 2) [facility] Start: 01-24-2016 Zoster Vaccines (1 o f 2) Zoster Vaccines (1 of 2) [facility] Start: 07-19-2011 Provider Instruction s for Treatment Continue Current Prescription(s) [facility] Work Phone: Start: 03-12-2011 Provider Instruction s for Treatment FOLLOW UP TOMORROW [facility] Work Phone: Start: 03-11-2011 Provider Instruction s for Treatment FOLLOW UP TOMORROW [facility] Work Phone: Start: 03-10-2011 Provider Instruction s for Treatment FOLLOW UP TOMORROW [facility] Work Phone: Start: 2011 COLOGUARD (FIT-DNA) COLOGUARD (FIT-D NA) [facility] Start: 2011 Colonoscopy COLONOSCOPY [facility] Start: 2011 COLORECTAL CANCER SCREENING COLORECTAL CANCER SCREENING [facility] Start: [address] COLONOGRAPHY [facility] Start: 2011 DIABETES SCREEN DIABETES SCREEN [facility] Start: 2011 Diabetes Screening Diabetes Screenin g [facility] Start: 2011 FECAL OCCULT BLOOD FECAL OCCULT BLOO D [facility] Start: 2011 Screening for malign ant neoplasm of colon [facility] Start: 2011 SIGMOIDOSCOPY SIGMOIDOSCOPY [facility] Start: 03-13-2009 Urnls dip stick/tabl et rgnt non-auto w/o micrscp Urinalysis, Office (58798) [facility] Work Phone: Start: 03-10-2009 Comprehensive metabo lic panel METABOLIC PANEL, COMPREHENSIVE (79176) [facility] Work Phone: Start: 03-10-2009 Blood count manual c ell count each CBC WITH MANUAL DIFF (88359) [facility] Work Phone: Start: 03-10-2009 Cul bact xcpt urine blood/stool aerobic isol COLIN CULTURE-OTHER (88506) [facility] Work Phone: Start: 03-10-2009 Cul bact stool aerob ic isol salmonella&shigell COLIN CULTURE-STOOL (03518) [facility] Work Phone: Start: 03-10-2009 Leukocyte assmt feca l qual/semiquantitative LEUKOCYTE COUNT, FECAL (94858) [facility] Work Phone: Start: 03-10-2009 Ova&parasites direct smears concentration & id OVA & PARASITE DIR SMEAR (59168) [facility] Work Phone: Start: 03-10-2009 Culture bacterial an y source anaerobic iso&id [facility] Work Phone: Start: 12-21-2007 Lipid panel LIPID PANEL (54146) [facility] Work Phone: Comment on above: screening Start: 11-15-2007 Provider Instruction s for Treatment CAFFEINE AVOIDANCE [facility] Work Phone: Start: 09-25-2007 Provider Instruction s for Treatment FOLLOW UP IN 1 WEEK [facility] Work Phone: Start: 08-30-2007 Provider Instruction s for Treatment FOLLOW UP TOMORROW [facility] Work Phone: Start: 08-24-2007 Blood count complete automated CBC (Auto) (20312) [facility] Work Phone: Comment on above: dx drug monitor Start: 08-24-2007 Assay of creatine Creatine (60119) [facility]; [facility] Work Phone: Comment on above: dx drug monitor Start: 08-24-2007 Creatinine [Mass/Vol] Creatine (8254 0) [facility] Work Phone: Comment on above: dx drug monitor Start: 08-16-2007 Provider Instruction s for Treatment FOLLOW UP TOMORROW [facility] Work Phone: Start: 08-14-2007 Glucose [Mass/Vol] Glucose, PP /2 Hour (28391) [facility] Work Phone: Start: 08-14-2007 Glucose quantitative blood xcpt reagent strip Glucose, PP/2 Hour (39375) [facility]; [facility] Work Phone: Start: 08-10-2007 Provider Instruction s for Treatment [facility] Work Phone: Start: 08-06-2007 Provider Instruction s for Treatment FOLLOW UP TOMORROW [facility] Work Phone: Start: 08-04-2007 Provider Instruction s for Treatment FOLLOW UP TOMORROW [facility] Work Phone: Start: 08-02-2007 Provider Instruction s for Treatment FOLLOW UP TOMORROW [facility] Work Phone: Start: 07-31-2007 Provider Instruction s for Treatment FOLLOW UP TOMORROW [facility] Work Phone: Start: 07-27-2007 Provider Instruction s for Treatment FOLLOW UP TOMORROW [facility] Work Phone: Start: 07-26-2007 Provider Instruction s for Treatment FOLLOW UP TOMORROW [facility] Work Phone: Start: 07-24-2007 Culture bacterial an y source anaerobic iso&id BACT CULTURE ANY-ANAEROBIC (25432) [facility] Work Phone: Start: 07-24-2007 Cul bact xcpt urine blood/stool aerobic isol COLIN CULTURE-OTHER (02184) [facility] Work Phone: Start: 07-18-2007 Provider Instruction s for Treatment FOLLOW UP TOMORROW [facility] Work Phone: Start: 01-28-2007 Nursing Care Education IV [facility] Work Phone: Start: 2001 Lipid 1996 panel - Serum or Plasma Lipid Screening [facility] Start: 2001 Lipid panel Lipid Screening [facility] Start: 2001 LIPID SCREEN LIPID SCREEN [facility] Start: 1985 Hepatitis B Vaccine (1 of 3 - 19+ 3-dose series) Hepatitis B Vaccine (1 of 3 - 19+ 3-dose series) [facility] Start: 1985 Hepatitis B Vaccines (1 of 3 - 19+ 3-dose series) Hepatitis B Vaccines (1 of 3 - 19+ 3-dose series) [facility] Start: 1985 Urine microalbumin profile [facility] Start: 1985 Urine screening for protein Diabetes: Urine Protein Screening [facility] Start: 01-24-1984 Anxiety Screening Anxiety Screening [facility] Start: 01-24-1984 Depression Screening Depression Scre ening [facility] Start: 01-24-1984 HEPATITIS C SCREENING HEPATITIS C [facility] Start: 01-24-1984 Hepatitis C screening Hepatitis C [facility] Start: 01-24-1984 HIV SCREENING HIV SCREENING [facility] Start: 01-24-1984 HIV screening HIV Screening [facility] Start: 1978 Adult depression screening assessment DEPRESSION SCREENING [facility] Start: 01-24-1976 Glaucoma screening Diabetes: R etinopathy Screening [facility] Start: 01-24-1972 Pneumococcal Vaccine : Pediatrics (0 to 5 Years) and At-Risk Patients (6 to 64 Years) (1 of 2 - PCV) Pneumococcal Vaccine: Pediatrics (0 to 5 Years) and At-Risk Patients (6 to 64 Years) (1 of 2 - PCV) [facility] Start: 1971 COVID-19 VACCINE (#1) COVID-19 VACCI NE (#1) [facility] Start: 1971 COVID-19 VACCINE (1) COVID-19 VACCIN E (1) [facility] Start: 1967 MMR Vaccines (1 of 1 - Standard series) MMR Vaccines (1 of 1 - Standard series) [facility] Start: 1966 Hemoglobin A1c measurement Diabetes: Hemoglobin A1C [facility] Start: 1966 HEPATITIS B (1 of 3 - 3-dose series) HEPATITIS B (1 of 3 - 3-dose series) [facility] Start: 1966 Hepatitis B Vaccine (1 of 3 - 3-dose series) Hepatitis B Vaccine (1 of 3 - 3-dose series) [facility] Start: 1966 HIV screening HIV Screening [facility] Start: 1966 Lipid panel Lipid Panel [facility] Start: 1966 Screening for malign ant neoplasm of colon [facility] Start: 1966 Yearly Adult Physical Yearly Adult P hysical [facility] End: 08-15-2024 CT for calcium scoring WO contrast and CTA W contrast IV Heart and coronary arteries [facility] Service Area Work Phone: Comment on above: Once for 1 Occurrenc es starting 08/15/2024 until 08/15/2024 [facility] Work Phone: [facility] Work Phone: [facility] Work Phone: [facility] Work Phone: [facility] Work Phone: [facility] Work Phone[facility] Work Phone: [facility] Work Phone: [facility] Work Phone: [facility] Work Phone: [facility] Work Phone: [facility] Work Phone: [facility] Work Phone: [facility] Work Phone: [facility] Work Phone: [facility] Work Phone: [facility] Work Phone: [facility] Work Phone: [facility] Work Phone: [facility] Work Phone: [facility] Work Phone: [facility] Work Phone: [facility] Work Phone: [facility] Work Phone: [facility] Work Phone: [facility] Work Phone: [facility] Work Phone: [facility] Work Phone: [facility] Work Phone: [facility] Work Phone: [facility] Work Phone: [facility] Work Phone: [facility] Work Phone: [facility] Work Phone: [facility] Work Phone: [facility] Work Phone: [facility] Work Phone: [facility] Work Phone: [facility] Work Phone: [facility] Work Phone: [facility] Work Phone[facility] Work Phone: [facility] Work Phone: [facility] Work Phone: [facility] Work Phone: [facility] Work Phone: [facility] Work Phone: [facility] Work Phone: [facility] Work Phone: [facility] Work Phone: [facility] Work Phone: [facility] Work Phone: [facility] Work Phone: [facility] Work Phone: [facility] Work Phone: [facility] Work Phone: [facility] Work Phone: [facility] Work Phone: [facility] Work Phone: [facility] Work Phone: [facility] Work Phone: [facility] Work Phone: [facility] Work Phone: [facility] Work Phone: [facility] Work Phone: [facility] Work Phone: [facility] Work Phone: [facility] Work Phone: [facility] Work Phone: [facility] Work Phone: [facility] Work Phone: [facility] Work Phone: [facility] Immunizations Immunization Date Immunization Notes Care Provider Merlin rodriguez 09-06-2023 influenza virus vaccine, unspecified formulation Ashutosh Hennessy APRN.CNP Work Phone: [facility] 08-18-2022 influenza virus vaccine, unspecified formulation Estela Day PA-C Work Phone: [facility] Payers Date Payer Category Payer Self-pay [id number] 2023 Managed Care (Private) [facility] [employer] [id number] 2023 Private Health Insurance [id number] 2021 Private Health Insurance [id number] 2011 Private Health Insurance [employer] A [employer]NA CHOICE POS II [id number] 2011-Present [phone] [address] [place] [address] POS [id number] [address] [facility] AULTCOMP O [id number] 2004-Present [facility] [id number] 03-06-2004 Unknown [id number] 1966 Unknown [id number] Private Health Insurance [employer] [id number] Unknown [facility] AULTCOMP [id number] Unknown [id number] Unknown [id number] Unknown [id number] Unknown 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 Tobacco use: Tobacco use: [facility] Work Phone: Tobacco use: Tobacco use: [facility]; [facility] Work Phone: Start: 11-09-2016 End: 01-28-2018 Tobacco smoking status NHIS Never smoked tobacco [facility] Work Phone: Start: 11-09-2016 End: 12-14-2022 Tobacco use and exposure Smokeless tobacco non-user [facility] Work Phone: Start: 1965 Sex Assigned At Not on file [facility] Start: 03-29-2022 End: 02-07-2024 Alcohol intake Ex-drinker (finding) [facility] Start: 03-29-2022 History SDOH Alcohol Frequency 1 [facility] Start: 04-10-2022 End: 08-15-2024 Exposure to SARS-CoV-2 (event) Not sure [facility] Start: 04-20-2023 End: 02-07-2024 Tobacco use panel [facility] National Score (1-100), lower number is lower risk 54 [facility] Start: 1965 Sex Assigned At Male [facility] Tobacco smoking status NCIS Tobacco smoking consumption unknown [facility] Work Phone: Clinical Notes 04-20-2022 to 08-23-2024 Telephone Encounter - Tova Juarez LPN - 08/23/2024 9:15 AM EDTTelephone Encounter - Tova Juarez LPN - 08/23/2024 9:15 AM EDTTelephone Encounter - Tova Juarez LPN - 07/20/2024 2:28 PM EDT Note Date & Type Note Facility 08-23-2024 Miscellaneous Notes Stated I already had my appt with Dr Negron, so I am cx the FU for next week at . Confirmed that we will do that. documented in this encounter [facility] 08-23-2024 Telephone encounter Note Stated I already had my appt with Dr Negron, so I am cx the FU for next week at . Confirmed that we will do that. [facility] 07-20-2024 Telephone encounter Note Spoke with pt re: need for new Pain Management Dr that will provide POR status and stated he would like to go to Dr. Roblero - [facility] [place]. Referral created and sent to [facility] ([facility]) team. [facility] 07-20-2024 Miscellaneous Notes Spoke with pt re: need for new Pain Management Dr that will provide POR status and stated he would like to go to Dr. Roblero - [facility] [place]. Referral created and sent to [facility] ([place]) team. documented in this encounter [facility] 06-28-2024 Telephone encounter Note [employer] approved, pt and pharmacy were informed. [facility] 06-28-2024 Miscellaneous Notes Movantim[employer] approved, pt and pharmacy were informed. Renewal PA for movantik submitted on CMM to [facility] . documented in this encounter [facility] 06-28-2024 Telephone encounter Note Renewal PA for movantik submitted on CMM to [facility] . [facility] 06-26-2024 Telephone encounter Note Script went to the wrong pharmacy, updated script attached, please review and send Josette Wong RN June 26, 2024 9:24 AM [facility] 06-26-2024 Miscellaneous Notes Script went to the wrong pharmacy, updated script attached, please review and send Josette Wong RN June 26, 2024 9:24 AM documented in this encounter [facility] 06-25-2024 Telephone encounter Note LM on VM regarding form being mailed out to change POR with [facility]. Fred Jean RN June 25, 2024 11:13 AM [facility] 06-25-2024 Miscellaneous Notes CARMINE on VM regarding form being mailed out to change POR with [facility]. Fred Jean RN June 25, 2024 11:13 AM documented in this encounter [facility] 06-25-2024 Telephone encounter Note Patient phones requesting refills as follows: Requested Prescriptions Pending Prescriptions Disp Refills DULoxetine (CYMBALTA) 60 mg capsule 60 capsule 3 Sig: Take 1 capsule by mouth two times a day. MOVANTIK 25 mg tablet 30 tablet 3 Sig: Take 1 tablet by mouth once daily as needed. omeprazole (PRILOSEC) 40 mg capsule 60 capsule 3 Sig: Take 1 capsule by mouth two times a day. Last UDS: Opioid/non opioid Agreement signed 11/15/23 [facility] DX 01/25/23 03/09/2023 change nucynta to er 250 mg bid due 03/23/2023 04/11/24- Outside approved (Court approved), [facility] may get through [employer] [facility] No results found for: SUMM, PREGAB No results found for: UQNOTE, OPIATEPNMGT, DRUGSCRPAIN Urine Panel: No results found for: UQCANN, UQBNZL, JWA2YUL, UQAMPH, UQMAMP, UQBUPRE, UQNORBUP, UQMTHD, UQEDDP, UQTRAM, UQDTRM, UQFNTL, UQNFTL, UQCODE, UQMORP, UQDCDN, UQHCOD, UQOXYC, UQHMOR, UQOXYM, UQCREA, UQPH, UQSPGR, UQOXID, UQSPQ @FLOW([id number])@ No results found for: SUMM Summary Report (Summary) Date Value Ref Range Status 08/11/2022 FINAL Final Comment: ==== TOXASSURE COMP DRUG ANALYSIS,UR ==== Test Result Flag Units Drug Present and Declared for Prescription Verification Tapentadol >69241 EXPECTED ng/mg creat Source of tapentadol is a scheduled prescription medication. Duloxetine PRESENT EXPECTED Drug Present not Declared for Prescription Verification Alcohol, Ethyl 0.053 UNEXPECTED g/dL Sources of ethyl alcohol include alcoholic beverages or as a fermentation product of glucose; glucose is present in this specimen. Interpret result with caution, as the presence of ethyl alcohol is likely due, at least in part, to fermentation of glucose. ==== Test Result Flag Units Ref Range Creatinine 96 mg/dL >=20 ==== Declared Medications: The flagging and interpretation on this report are based on the following declared medications. Unexpected results may arise from inaccuracies in the declared medications. Note: The testing scope of this panel includes these medications: Duloxetine (Cymbalta) Tapentadol (Nucynta) ==== For clinical consultation, please call . ==== Last Opioid agreement effective date: 11/15/2023 Please review and advise. Pam Nguyen RN [facility] 06-25-2024 Miscellaneous Notes Patient phones requesting refills as follows: Requested Prescriptions Pending Prescriptions Disp Refills DULoxetine (CYMBALTA) 60 mg capsule 60 capsule 3 Sig: Take 1 capsule by mouth two times a day. MOVANTIK 25 mg tablet 30 tablet 3 Sig: Take 1 tablet by mouth once daily as needed. omeprazole (PRILOSEC) 40 mg capsule 60 capsule 3 Sig: Take 1 capsule by mouth two times a day. Last UDS: Opioid/non opioid Agreement signed 11/15/23 [facility] DX 01/25/23 03/09/2023 change nucynta to er 250 mg bid due 03/23/2023 04/11/24- Outside approved (Court approved), per Selene, may get through [employer] [facility] SCS No results found for: SUMM, PREGAB No results found for: UQNOTE, OPIATEPNMGT, DRUGSCRPAIN Urine Panel: No results found for: UQCANN, UQBNZL, QWE5QOR, UQAMPH, UQMAMP, UQBUPRE, UQNORBUP, UQMTHD, UQEDDP, UQTRAM, UQDTRM, UQFNTL, UQNFTL, UQCODE, UQMORP, UQDCDN, UQHCOD, UQOXYC, UQHMOR, UQOXYM, UQCREA, UQPH, UQSPGR, UQOXID, UQSPQ @FLOW([id number])@ No results found for: SUMM Summary Report (Summary) Date Value Ref Range Status 08/11/2022 FINAL Final Comment: ==== TOXASSURE COMP DRUG ANALYSIS,UR ==== Test Result Flag Units Drug Present and Declared for Prescription Verification Tapentadol >47916 EXPECTED ng/mg creat Source of tapentadol is a scheduled prescription medication. Duloxetine PRESENT EXPECTED Drug Present not Declared for Prescription Verification Alcohol, Ethyl 0.053 UNEXPECTED g/dL Sources of ethyl alcohol include alcoholic beverages or as a fermentation product of glucose; glucose is present in this specimen. Interpret result with caution, as the presence of ethyl alcohol is likely due, at least in part, to fermentation of glucose. ==== Test Result Flag Units Ref Range Creatinine 96 mg/dL >=20 ==== Declared Medications: The flagging and interpretation on this report are based on the following declared medications. Unexpected results may arise from inaccuracies in the declared medications. Note: The testing scope of this panel includes these medications: Duloxetine (Cymbalta) Tapentadol (Nucynta) ==== For clinical consultation, please call . ==== Last Opioid agreement effective date: 11/15/2023 Please review and advise. Pam Nguyen RN documented in this encounter [facility] 05-25-2024 Instructions Estela Day PA-C - 05/25/2024 8:18 AM EDT The OARRS report has been reviewed and is consistent with the patients medical history and medication intake. The patient's most recent drug screen has been reviewed and is appropriate and consistent with current therapy. He will continue with Nucynta, duloxetine, terazosin, omeprazole, eszopiclone, Movantik, tadalafil, and MiraLAX. Patient was encouraged to increase fluid and fiber intake. He will continue using his spinal cord stimulator. Call Maggy if you need to have this reprogrammed [phone]. He will continue with core strengthening and range of motion exercises. Follow-up in the office in 3 months Supervising Physiciain - Dr. Rory Schultz MD documented in this encounter [facility] 05-25-2024 Note HNO ID: [id number] Author: ESTELA DAY PA-C Service: ? Author Type: Physician Freelance Designer Type: Progress Notes Filed: 05/25/2024 08:26 Note Text: This note was created using Q-Senseiriter. Subjective Cong Harrison is a 59 year old male. The patient primarily being seen for left leg pain - [facility] Patient was last seen on: 04/04/24 At that time, the treatment plan was: see notes Current Meds: nucynta - am, duloxetine - am, prilosec - am, hytrin - pm, movantik - am Efficacy: help Side effects: constipation TENS unit: SCS How often used: 23/05 Benefit: helps Physical Therapy: years ago Last UDS: 04/04/24 Last injection: OARRS reviewed At the present time, the patient reports benefit with his present analgesic therapy. He uses movantik for his constipation. Since his previous visit, he denies any hospitalizations or ER visits. He states that the spinal cord stimulator helps and covers his areas of pain. The last couple weeks his pain has been elevated. Next week he is having his prosthesis checked to make sure it is still fitting correctly. 05/02/2024 05/25/2024 INTAKE PAIN ASSESSMENT Are you having pain associated with your visit today? No Yes, Provider notified Pain Scales Verbal (Numeric Rating or Visual Analog Scale) Pain Level 10 Pain Location Leg-Left Description Burning;Aching;Stabbing Frequency Continuous Intervention/Comfort measure Medication;Relaxation;Spinal Cord Stimulator Leg Pain Pertinent negatives include no fever. PAST MEDICAL HISTORY Diagnosis Date Amputated left leg (HCC) 2003 GERD (gastroesophageal reflux disease) PAST SURGICAL HISTORY Procedure Laterality Date ARTHROPLASTY HEMIARTHROPLASTY total knee ORTHOPEDICS SURGERY HX N/A 20 srg on left leg PRQ IMPLTJ NSTIM ELECTRODE ARRAY EPIDURAL SCS WRIST SURGERY HX right Social History Tobacco Use Smoking status: Never Smokeless tobacco: Never Substance Use Topics Alcohol use: Not Currently Drug use: Never Review of Systems Constitutional: Negative for fever and unexpected weight change. Gastrointestinal: Positive for constipation. Musculoskeletal: + back pain, joint pain/swelling, numbness, tingling, muscle cramps/weakness, stiffness, arthritis, sciatica, restless legs, leg pain at night and leg pain with exertion. Objective BP 123/70 (BP Site: Left Arm, BP Position: Sitting, BP Cuff Size: Regular Adult) Pulse 101 Resp 18 Wt 88 kg (194 lb) SpO2 99% BMI 30.38 kg/m? Physical Exam Vitals and nursing note reviewed. Constitutional: Appearance: Normal appearance. He is well-developed and well-groomed. He is obese. HENT: Head: Normocephalic and atraumatic. Right Ear: Decreased hearing noted. Left Ear: Decreased hearing noted. Ears: Comments: Wearing hearing aids. Eyes: Conjunctiva/sclera: Conjunctivae normal. Comments: Wearing glasses Musculoskeletal: Comments: He walks with a limp but is not using any assistive devices. The patient has tenderness to palpation in the thoracic and lumbar region with spasms noted in the paraspinal muscles. There is allodynia and hyperpathia noted in the BLE, right > left. Strength is 5/5 throughout. SLR is negative. He has tenderness to palpation in his right knee with crepitus noted. There is decreased hair growth and a reddish discoloration noted in the distal RLE. He has a prosthetic device noted in the distal LLE. There is allodynia noted in the left hand. Neurological: Mental Status: He is alert and oriented to person, place, and time. Psychiatric: Attention and Perception: Attention and perception normal. Mood and Affect: Mood and affect normal. Speech: Speech normal. Behavior: Behavior normal. Behavior is cooperative. Thought Content: Thought content normal. Judgment: Judgment normal. Assessment and Plan ASSESSMENT/PLAN: 1. Complex regional pain syndrome type 1 of left lower extremity - BWC - ICD9: 337.22, ICD10: G90.522 (primary diagnosis) The OARRS report has been reviewed and is consistent with the patients medical history and medication intake. The patient's most recent drug screen has been reviewed and is appropriate and consistent with current therapy. He will continue with Nucynta, duloxetine, terazosin, omeprazole, eszopiclone, Movantik, tadalafil, and MiraLAX. Patient was encouraged to increase fluid and fiber intake. He will continue using his spinal cord stimulator. Call Maggy if you need to have this reprogrammed [phone]. He will continue with core strengthening and range of motion exercises. Follow-up in the office in 3 months - TAPENTADOL 100 MG TABLET (Two stable chronic illnesses/prescription drug management) 2. Complex regional pain syndrome type 1 of right lower extremity - BWC - ICD9: 337.22, ICD10: G90.521 3. Osteoarthritis of right knee, unspecified osteoarthritis type - [facility] - ICD9: 715.96, ICD10: M17.11 4. Psychogenic pain - [facility] - ICD9: 307.80, (more content not included)... [facility] 05-25-2024 History of Presen t illness Narrative This note was created using Q-Senseiriter. Subjective Cong Harrison is a 59 year old male. The patient primarily being seen for left leg pain - [facility] Patient was last seen on: 04/04/24 At that time, the treatment plan was: see notes Current Meds: nucynta - am, duloxetine - am, prilosec - am, hytrin - pm, movantik - am Efficacy: help Side effects: constipation TENS unit: SCS How often used: 23/05 Benefit: helps Physical Therapy: years ago Last UDS: 04/04/24 Last injection: OARRS reviewed At the present time, the patient reports benefit with his present analgesic therapy. He uses movantik for his constipation. Since his previous visit, he denies any hospitalizations or ER visits. He states that the spinal cord stimulator helps and covers his areas of pain. The last couple weeks his pain has been elevated. Next week he is having his prosthesis checked to make sure it is still fitting correctly. 05/02/2024 05/25/2024 INTAKE PAIN ASSESSMENT Are you having pain associated with your visit today? No Yes, Provider notified Pain Scales Verbal (Numeric Rating or Visual Analog Scale) Pain Level 10 Pain Location Leg-Left Description Burning;Aching;Stabbing Frequency Continuous Intervention/Comfort measure Medication;Relaxation;Spinal Cord Stimulator Leg Pain Pertinent negatives include no fever. PAST MEDICAL HISTORY Diagnosis Date Amputated left leg (HCC) 2003 GERD (gastroesophageal reflux disease) PAST SURGICAL HISTORY Procedure Laterality Date ARTHROPLASTY HEMIARTHROPLASTY total knee ORTHOPEDICS SURGERY HX N/A 20 srg on left leg PRQ IMPLTJ NSTIM ELECTRODE ARRAY EPIDURAL SCS WRIST SURGERY HX right Social History Tobacco Use Smoking status: Never Smokeless tobacco: Never Substance Use Topics Alcohol use: Not Currently Drug use: Never Review of Systems Constitutional: Negative for fever and unexpected weight change. Gastrointestinal: Positive for constipation. Musculoskeletal: + back pain, joint pain/swelling, numbness, tingling, muscle cramps/weakness, stiffness, arthritis, sciatica, restless legs, leg pain at night and leg pain with exertion. Objective BP 123/70 (BP Site: Left Arm, BP Position: Sitting, BP Cuff Size: Regular Adult) Pulse 101 Resp 18 Wt 88 kg (194 lb) SpO2 99% BMI 30.38 kg/m Physical Exam Vitals and nursing note reviewed. Constitutional: Appearance: Normal appearance. He is well-developed and well-groomed. He is obese. HENT: Head: Normocephalic and atraumatic. Right Ear: Decreased hearing noted. Left Ear: Decreased hearing noted. Ears: Comments: Wearing hearing aids. Eyes: Conjunctiva/sclera: Conjunctivae normal. Comments: Wearing glasses Musculoskeletal: Comments: He walks with a limp but is not using any assistive devices. The patient has tenderness to palpation in the thoracic and lumbar region with spasms noted in the paraspinal muscles. There is allodynia and hyperpathia noted in the BLE, right > left. Strength is 5/5 throughout. SLR is negative. He has tenderness to palpation in his right knee with crepitus noted. There is decreased hair growth and a reddish discoloration noted in the distal RLE. He has a prosthetic device noted in the distal LLE. There is allodynia noted in the left hand. Neurological: Mental Status: He is alert and oriented to person, place, and time. Psychiatric: Attention and Perception: Attention and perception normal. Mood and Affect: Mood and affect normal. Speech: Speech normal. Behavior: Behavior normal. Behavior is cooperative. Thought Content: Thought content normal. Judgment: Judgment normal. Assessment and Plan ASSESSMENT/PLAN: 1. Complex regional pain syndrome type 1 of left lower extremity - [facility] - ICD9: 337.22, ICD10: G90.522 (primary diagnosis) The OARRS report has been reviewed and is consistent with the patients medical history and medication intake. The patient's most recent drug screen has been reviewed and is appropriate and consistent with current therapy. He will continue with Nucynta, duloxetine, terazosin, omeprazole, eszopiclone, Movantik, tadalafil, and MiraLAX. Patient was encouraged to increase fluid and fiber intake. He will continue using his spinal cord stimulator. Call Maggy if you need to have this reprogrammed [phone]. He will continue with core strengthening and range of motion exercises. Follow-up in the office in 3 months - TAPENTADOL 100 MG TABLET (Two stable chronic illnesses/prescription drug management) 2. Complex regional pain syndrome type 1 of right lower extremity - C - ICD9: 337.22, ICD10: G90.521 3. Osteoarthritis of right knee, unspecified osteoarthritis type - [facility] - ICD9: 715.96, ICD10: M17.11 4. Psychogenic pain - [facility] - ICD9: 307.80, ICD10: F45.42 Estela Day PA-C documented in this encounter [facility] 05-25-2024 Nurse Note Nucynta this am/ Cymbalta this am/ Prilosec this am/ Hytrin last pm/ Movantik am Meds help pain Denies side effects SCS, 23/05-helpful Last uds-04/04/24 [facility] 05-25-2024 Nurse Note Nucynta this am/ Cymbalta this am/ Prilosec this am/ Hytrin last pm/ Movantik am Meds help pain Denies side effects SCS, 23/05-helpful Last uds-04/04/24 documented in this encounter [facility] 05-23-2024 Telephone encounter Note No response from [employer] or pt to proceed with C9 for car carrier for scooter. Spoke with pt who stated I haven't heard anything from them either Called and spoke with Dina- Affiliate Marketing Specialist, stated pt told us he is almost done with the lease on his car and will be getting another one soon, so we didn't want to proceed until this until pt has his next car, to make sure of getting the correct carrier. Explained pt never told us this was the holdup. Discussed that [employer] will generate a C9 and send it to us when he has his new car. Spoke with pt and updated on process of getting the carrier. Stated I understand. [facility] 05-23-2024 Miscellaneous Notes No response from [employer] or pt to proceed with C9 for car carrier for scooter. Spoke with pt who stated I haven't heard anything from them either Called and spoke with Karla Rosas Rep, stated pt told us he is almost done with the lease on his car and will be getting another one soon, so we didn't want to proceed until this until pt has his next car, to make sure of getting the correct carrier. Explained pt never told us this was the holdup. Discussed that [employer] will generate a C9 and send it to us when he has his new car. Spoke with pt and updated on process of getting the carrier. Stated I understand. Spoke with @ [employer] after not hearing from them, asked if there was a decision made on what car carrier and cover were needed for the scooter, stated they were not sure, will look into this and return the call. Direct number given. VM received from pt requesting a C9 for the (approved) scooter carrier and cover. Spoke with Juanis Morton who suggested calling [employer] for actual equipment code. Called [employer], left message for Rep to send the codes or call back with information to fill out C9. documented in this encounter [facility] 05-08-2024 Telephone encounter Note Spoke with @ [employer] after not hearing from them, asked if there was a decision made on what car carrier and cover were needed for the scooter, stated they were not sure, will look into this and return the call. Direct number given. [facility] 05-02-2024 Telephone encounter Note Talked to patient and he verbally understands his chest xray was remarkable. Joselito Ruffin [facility] 05-02-2024 Miscellaneous Notes Talked to patient and he verbally understands his chest xray was remarkable. Joselito Ruffin Please inform patient that chest x-ray is unremarkable. Prescription sent to [facility]. Ashutosh Hennessy APRN.BRET documented in this encounter [facility] 05-02-2024 Telephone encounter Note Please inform patient that chest x-ray is unremarkable. Prescription sent to [facility]. Ashutosh Hennessy APRN.CNP [facility] 05-02-2024 History of Presen t illness Narrative Radiology Service Progress Note PATIENT NAME: Cong Harrison DATE OF SERVICE: May 02, 2024 TIME: 5:53 PM PATIENT IDENTITY VERIFICATION COMPLETED USING TWO (2) IDENTIFIERS: Name and Date of confirmed by patient verbally. FALL SCREENING: Has the patient had 2 falls in the last year or 1 fall with injury or currently using an Ambulatory Assistive Device (Walker, Cane, Wheelchair, Crutches, etc.)? No PATIENT GENDER DATA: Male PATIENT RELEVANT IMPLANT DATA REVIEWED: Yes PATIENT PRESENTS WITH AN IMPLANTABLE OR ATTACHED MERCHANDISING TEAM LEAD: No RADIOLOGY DEPARTMENT: General X-ray: Exam(s) Completed: Chest X-Ray PERIPHERAL IV DATA: Not applicable SIGNED BY: RT Radha(Dinesh) May 02, 2024 5:53 PM documented in this encounter [facility] 05-02-2024 Note HNO ID: [id number] Author: BANDAR DUPREE RT(R) Service: ? Author Type: Platform Material Handling Supervisor Type: Progress Notes Filed: 05/02/2024 18:01 Note Text: Radiology Service Progress Note PATIENT NAME: Cong Harrison DATE OF SERVICE: May 02, 2024 TIME: 5:53 PM PATIENT IDENTITY VERIFICATION COMPLETED USING TWO (2) IDENTIFIERS: Name and Date of confirmed by patient verbally. FALL SCREENING: Has the patient had 2 falls in the last year or 1 fall with injury or currently using an Ambulatory Assistive Device (Walker, Cane, Wheelchair, Crutches, etc.)? No PATIENT GENDER DATA: Male PATIENT RELEVANT IMPLANT DATA REVIEWED: Yes PATIENT PRESENTS WITH AN IMPLANTABLE OR ATTACHED MERCHANDISING TEAM LEAD: No RADIOLOGY DEPARTMENT: General X-ray: Exam(s) Completed: Chest X-Ray PERIPHERAL IV DATA: Not applicable SIGNED BY: RT Radha(Dinesh) May 02, 2024 5:53 PM [facility] 05-02-2024 Note HNO ID: [id number] Author: ASHUTOSH HENNESSY APRN.ENGINEER FIRST ASSISTANT Service: ? Author Type: Nurse Practitioner Type: Progress Notes Filed: 05/02/2024 18:50 Note Text: Subjective HPI Nontoxic-appearing male presents urgent care chief complaint runny nose cough. Duration of symptoms 1 month. Associated symptoms listed above. States was seen at a [facility] placed on amoxicillin. This did not help. States cough is becoming more productive. No OTC medications. Denies any fever body aches chills productive cough chest pain shortness of breath pleuritic pain hemoptysis nausea vomiting abdominal pain change in bowel or bladder habits. Past medical history prescription medication use and allergies reviewed. .Patient presents with: Cough: Runny nose x1 mth PAST MEDICAL HISTORY Diagnosis Date Amputated left leg (HCC) 2003 GERD (gastroesophageal reflux disease) PAST SURGICAL HISTORY Procedure Laterality Date ARTHROPLASTY HEMIARTHROPLASTY total knee ORTHOPEDICS SURGERY HX N/A 20 srg on left leg PRQ IMPLTJ NSTIM ELECTRODE ARRAY EPIDURAL SCS WRIST SURGERY HX right ALLERGIES Adhesive Tape (Rosins) MEDICATIONS DULoxetine (CYMBALTA) 60 mg capsule Take 1 capsule by mouth two times a day. omeprazole (PRILOSEC) 40 mg capsule Take 1 capsule by mouth two times a day. MOVANTIK 25 mg tablet Take 1 tablet by mouth once daily as needed. terazosin (HYTRIN) 1 mg capsule Take 1 capsule by mouth once daily. naloxone 4 mg/actuation nasal spray (NARCAN) Use 1 spray in one nostril as needed for overdose. May repeat every 2 to 3 min in alternating nostrils until medical assistance is available Ascorbic Acid 100 mg chew Take 1 tablet by mouth once daily. MULTIVITAMIN ORAL Take 1 tablet by mouth once daily. TRAZODONE HCL (TRAZODONE ORAL) Take by mouth. eszopiclone (LUNESTA) 3 mg tab Take 3 mg by mouth at bedtime as needed. tapentadol (NUCYNTA) 100 mg tab Take 1 tablet by mouth every 6 hours as needed for up to 30 days. Tadalafil (CIALIS) 10 mg tablet Take 1 tablet by mouth once daily as needed (intercourse). No more than one pill in 24 hours FAMILY HISTORY Problem Relation Age of Onset Heart disease Father Hypertension Father Stroke Father Diabetes Mother Hypertension Mother Uterine Cancer Mother Social History Tobacco Use Smoking status: Never Smokeless tobacco: Never Substance Use Topics Alcohol use: Not Currently Drug use: Never BP 160/88 Pulse 96 Temp 36.4 ?C (97.6 ?F) Resp 18 Wt 87.4 kg (192 lb 10.9 oz) SpO2 98% BMI 30.18 kg/m? Review of Systems Constitutional: Negative for chills, fever and malaise/fatigue. HENT: Positive for congestion. Negative for ear discharge, ear pain, sinus pain and sore throat. Eyes: Negative for blurred vision, pain, discharge and redness. Respiratory: Positive for cough and sputum production. Negative for hemoptysis, shortness of breath, wheezing and stridor. Cardiovascular: Negative for chest pain. Gastrointestinal: Negative for abdominal pain, diarrhea, nausea and vomiting. Musculoskeletal: Negative for myalgias. Skin: Negative for itching and rash. Neurological: Negative for dizziness and headaches. Objective Physical Exam Constitutional: General: He is not in acute distress. Appearance: He is not diaphoretic. HENT: Head: Normocephalic. Jaw: No trismus, tenderness, swelling or pain on movement. Nose: Congestion present. Mouth/Throat: Mouth: Mucous membranes are moist. Pharynx: Oropharynx is clear. Uvula midline. No pharyngeal swelling, oropharyngeal exudate, posterior oropharyngeal erythema or uvula swelling. Eyes: Conjunctiva/sclera: Conjunctivae normal. Pupils: Pupils are equal, round, and reactive to light. Cardiovascular: Rate and Rhythm: Normal rate and regular rhythm. Heart sounds: Normal heart sounds. Pulmonary: Effort: Pulmonary effort is normal. No tachypnea, accessory muscle usage or respiratory distress. Breath sounds: Normal breath sounds. No stridor. No wheezing, rhonchi or rales. Abdominal: General: There is no distension. Palpations: Abdomen is soft. Tenderness: There is no abdominal tenderness. There is no guarding or rebound. Musculoskeletal: Cervical back: Normal range of motion and neck supple. No edema, erythema, rigidity or tenderness. No pain with movement. Normal range of motion. Lymphadenopathy: Cervical: No cervical adenopathy. Skin: General: Skin is warm and dry. Neurological: Mental Status: He is alert and oriented to person, place, and time. ASSESSMENT/PLAN: 1. Subacute cough - ICD9: 786.2, ICD10: R05.2 - XR CHEST 2V FRONTAL/LAT Diagnosis subacute cough. Due to duration of cough we will try doxycycline. Cough suppressant sent to pharmacy. Symptoms do not improve in 3 to 5 days follow-up with PCP. Patient was educated on supportive therapies. Patient was instructed to immediately proceed to emergency room for any new, worsening, or sympt (more content not included)... [facility] 05-02-2024 History of Presen t illness Narrative Subjective HPI Nontoxic-appearing male presents urgent care chief complaint runny nose cough. Duration of symptoms 1 month. Associated symptoms listed above. States was seen at a [facility] placed on amoxicillin. This did not help. States cough is becoming more productive. No OTC medications. Denies any fever body aches chills productive cough chest pain shortness of breath pleuritic pain hemoptysis nausea vomiting abdominal pain change in bowel or bladder habits. Past medical history prescription medication use and allergies reviewed. .Patient presents with: Cough: Runny nose x1 mth PAST MEDICAL HISTORY Diagnosis Date Amputated left leg (HCC) 2003 GERD (gastroesophageal reflux disease) PAST SURGICAL HISTORY Procedure Laterality Date ARTHROPLASTY HEMIARTHROPLASTY total knee ORTHOPEDICS SURGERY HX N/A 20 srg on left leg PRQ IMPLTJ NSTIM ELECTRODE ARRAY EPIDURAL SCS WRIST SURGERY HX right ALLERGIES Adhesive Tape (Rosins) MEDICATIONS DULoxetine (CYMBALTA) 60 mg capsule Take 1 capsule by mouth two times a day. omeprazole (PRILOSEC) 40 mg capsule Take 1 capsule by mouth two times a day. MOVANTIK 25 mg tablet Take 1 tablet by mouth once daily as needed. terazosin (HYTRIN) 1 mg capsule Take 1 capsule by mouth once daily. naloxone 4 mg/actuation nasal spray (NARCAN) Use 1 spray in one nostril as needed for overdose. May repeat every 2 to 3 min in alternating nostrils until medical assistance is available Ascorbic Acid 100 mg chew Take 1 tablet by mouth once daily. MULTIVITAMIN ORAL Take 1 tablet by mouth once daily. TRAZODONE HCL (TRAZODONE ORAL) Take by mouth. eszopiclone (LUNESTA) 3 mg tab Take 3 mg by mouth at bedtime as needed. tapentadol (NUCYNTA) 100 mg tab Take 1 tablet by mouth every 6 hours as needed for up to 30 days. Tadalafil (CIALIS) 10 mg tablet Take 1 tablet by mouth once daily as needed (intercourse). No more than one pill in 24 hours FAMILY HISTORY Problem Relation Age of Onset Heart disease Father Hypertension Father Stroke Father Diabetes Mother Hypertension Mother Uterine Cancer Mother Social History Tobacco Use Smoking status: Never Smokeless tobacco: Never Substance Use Topics Alcohol use: Not Currently Drug use: Never BP 160/88 Pulse 96 Temp 36.4 C (97.6 F) Resp 18 Wt 87.4 kg (192 lb 10.9 oz) SpO2 98% BMI 30.18 kg/m Review of Systems Constitutional: Negative for chills, fever and malaise/fatigue. HENT: Positive for congestion. Negative for ear discharge, ear pain, sinus pain and sore throat. Eyes: Negative for blurred vision, pain, discharge and redness. Respiratory: Positive for cough and sputum production. Negative for hemoptysis, shortness of breath, wheezing and stridor. Cardiovascular: Negative for chest pain. Gastrointestinal: Negative for abdominal pain, diarrhea, nausea and vomiting. Musculoskeletal: Negative for myalgias. Skin: Negative for itching and rash. Neurological: Negative for dizziness and headaches. Objective Physical Exam Constitutional: General: He is not in acute distress. Appearance: He is not diaphoretic. HENT: Head: Normocephalic. Jaw: No trismus, tenderness, swelling or pain on movement. Nose: Congestion present. Mouth/Throat: Mouth: Mucous membranes are moist. Pharynx: Oropharynx is clear. Uvula midline. No pharyngeal swelling, oropharyngeal exudate, posterior oropharyngeal erythema or uvula swelling. Eyes: Conjunctiva/sclera: Conjunctivae normal. Pupils: Pupils are equal, round, and reactive to light. Cardiovascular: Rate and Rhythm: Normal rate and regular rhythm. Heart sounds: Normal heart sounds. Pulmonary: Effort: Pulmonary effort is normal. No tachypnea, accessory muscle usage or respiratory distress. Breath sounds: Normal breath sounds. No stridor. No wheezing, rhonchi or rales. Abdominal: General: There is no distension. Palpations: Abdomen is soft. Tenderness: There is no abdominal tenderness. There is no guarding or rebound. Musculoskeletal: Cervical back: Normal range of motion and neck supple. No edema, erythema, rigidity or tenderness. No pain with movement. Normal range of motion. Lymphadenopathy: Cervical: No cervical adenopathy. Skin: General: Skin is warm and dry. Neurological: Mental Status: He is alert and oriented to person, place, and time. ASSESSMENT/PLAN: 1. Subacute cough - ICD9: 786.2, ICD10: R05.2 - XR CHEST 2V FRONTAL/LAT Diagnosis subacute cough. Due to duration of cough we will try doxycycline. Cough suppressant sent to pharmacy. Symptoms do not improve in 3 to 5 days follow-up with PCP. Patient was educated on supportive therapies. Patient was instructed to immediately proceed to emergency room for any new, worsening, or symptoms lasting longer than anticipated. The patient's clinical presentation is otherwise unremarkable at this time. Based on exam and clinical finding, the patient is stable for discharge. Plan of care was discussed with patient. Patient verbalizes understanding and agrees to plan of care. This note was generated using [employer] software. It may contain errors in wording, punctuation, or spelling. Ashutosh Hennessy APRN.BRET documented in this encounter [facility] 04-26-2024 Telephone encounter Note VM received from pt requesting a C9 for the (approved) scooter carrier and cover. Spoke with Juanis / Selene who suggested calling [employer] for actual equipment code. Called [employer], left message for Rep to send the codes or call back with information to fill out C9. [facility] 04-04-2024 Telephone encounter Note Cong here today for FUOV asking if we heard from [employer] or the [employer] company about his WC. Spoke with Juanis ANDERSON) who stated we are trying to come to an agreement with the [employer]ME Co[employer] on the correct type of chair for him, so I am waiting to hear back from them (some of this was delayed due to her time off and the holiday), and then I will give him a call. Spoke with pt and informed of update. [facility] 04-04-2024 Miscellaneous Notes Cong here today for FUOV asking if we heard from [employer] or the [employer] company about his WC. Spoke with Juanis ANDERSON) who stated we are trying to come to an agreement with the DME Co[employer] on the correct type of chair for him, so I am waiting to hear back from them (some of this was delayed due to her time off and the holiday), and then I will give him a call. Spoke with pt and informed of update. documented in this encounter [facility] 04-04-2024 Dawit Regalado MD - 04/04/2024 8:19 AM EDT Repeat urine drug screen this visit. The patient will continue with Nucynta, duloxetine, terazosin, omeprazole, Movantik, and MiraLAX. He was encouraged to increase fluid and fiber intake. He will continue using his spinal cord stimulator. Patient will continue with core strengthening and range of motion exercises. He was encouraged to lose weight. Follow-up in office in 6 weeks time. documented in this encounter [facility] 04-04-2024 History of Presen t illness Narrative This note was created using [employer]. Subjective Cong Harrison is a 59 year old male. The patient primarily being seen for left leg pain - [facility] Patient was last seen on: 02/07/24 At that time, the treatment plan was: see notes Current Meds: Nucynta - last dose this am, Cymbalta - this am, Prilosec - this am, Hytrin - last pm, Movantik - this am Efficacy: help to a certain degree Side effects: none TENS unit: has SCS How often used: 23/05 Benefit: helps Physical Therapy: years ago Last UDS: 04/04/24 Last injection: none OARRS reviewed 02/07/2024 04/04/2024 INTAKE PAIN ASSESSMENT Are you having pain associated with your visit today? Yes, Provider notified Yes, Provider notified Pain Scales Verbal (Numeric Rating or Visual Analog Scale) Verbal (Numeric Rating or Visual Analog Scale) Pain Level 7 9 Pain Location Leg-Left Leg-Right Description Aching;Dull;Burning;Numbness;Sha rp;Stabbing Aching;Dull;Sharp;Stabbing;Tingl ing Frequency Continuous Continuous Intervention/Comfort measure Medication Medication HPI Patient is getting adequate relief from the present regimen and denies any side effect from it except for constipation that is relieved by Movantik and MiraLAX. This has improved the patient s level of functionality and has been able to perform activities of daily living. The patient exhibits no aberrant behavior. The PDMP report and last UDS are both consistent with prescribed medications and are unremarkable. Patient is no longer taking Lunesta and Cialis Review of Systems Constitutional: Negative for fever and unexpected weight change. Gastrointestinal: Positive for constipation. Musculoskeletal: + back pain, joint pain/swelling, numbness, tingling, muscle cramps/weakness, stiffness, arthritis, sciatica, restless legs, leg pain at night and leg pain with exertion. Objective BP 124/74 (BP Site: Left Arm, BP Position: Sitting, BP Cuff Size: Large Adult) Pulse 101 Temp 36.3 C (97.4 F) (Temporal) Resp 20 Ht 170.2 cm (5' 7) Wt 88.5 kg (195 lb) SpO2 99% BMI 30.54 kg/m Physical Exam Vitals and nursing note reviewed. Constitutional: General: He is not in acute distress. Appearance: Normal appearance. He is well-developed and well-groomed. He is obese. HENT: Head: Normocephalic and atraumatic. Right Ear: External ear normal. Decreased hearing noted. Left Ear: External ear normal. Decreased hearing noted. Ears: Comments: Wearing hearing aids. Nose: Nose normal. Eyes: General: No scleral icterus. Extraocular Movements: Extraocular movements intact. Conjunctiva/sclera: Conjunctivae normal. Comments: Wearing glasses Musculoskeletal: Comments: He walks with a limp but is not using any assistive devices. The patient has tenderness to palpation in the thoracic and lumbar region with spasms noted in the paraspinal muscles. There is allodynia and hyperpathia noted in the BLE, right > left. Strength is 5/5 throughout. SLR is negative. He has tenderness to palpation in his right knee with crepitus noted. There is decreased hair growth and a reddish discoloration noted in the distal RLE. He has a prosthetic device noted in the distal LLE. There is allodynia noted in the left hand. Skin: General: Skin is warm and dry. Neurological: Mental Status: He is alert and oriented to person, place, and time. Psychiatric: Attention and Perception: Attention and perception normal. Mood and Affect: Mood and affect normal. Speech: Speech normal. Behavior: Behavior normal. Behavior is cooperative. Thought Content: Thought content normal. Judgment: Judgment normal. Assessment and Plan ASSESSMENT/PLAN: 1. Complex regional pain syndrome type 1 of left lower extremity - [facility] - ICD9: 337.22, ICD10: G90.522 (primary diagnosis) - TOXASSURE FLEX 23, URINE 2. Complex regional pain syndrome type 1 of right lower extremity - [facility] - ICD9: 337.22, ICD10: G90.521 3. Osteoarthritis of right knee, unspecified osteoarthritis type - [facility] - ICD9: 715.96, ICD10: M17.11 4. Psychogenic pain - [facility] - ICD9: 307.80, ICD10: F45.42 PLAN: Repeat urine drug screen this visit. The patient will continue with Nucynta, duloxetine, terazosin, omeprazole, Movantik, and MiraLAX. He was encouraged to increase fluid and fiber intake. He will continue using his spinal cord stimulator. Patient will continue with core strengthening and range of motion exercises. He was encouraged to lose weight. Follow-up in office in 6 weeks time. 30 minutes spent for chronic pain management distinct from evaluation and management Two or more stable chronic illness and prescription medication management This document was transcribed using a voice recognition software and may contain minor errors. Dawit Hernandez MD documented in this encounter [facility] 04-04-2024 Note HNO ID: [id number] Author: DAWIT HERNANDEZ MD Service: ? Author Type: Anesthesiologist Type: Progress Notes Filed: 04/05/2024 07:43 Note Text: This note was created using [employer]. Subjective Cong Harrison is a 59 year old male. The patient primarily being seen for left leg pain - [facility] Patient was last seen on: 02/07/24 At that time, the treatment plan was: see notes Current Meds: Nucynta - last dose this am, Cymbalta - this am, Prilosec - this am, Hytrin - last pm, Movantik - this am Efficacy: help to a certain degree Side effects: none TENS unit: has SCS How often used: 23/05 Benefit: helps Physical Therapy: years ago Last UDS: 04/04/24 Last injection: none OARRS reviewed 02/07/2024 04/04/2024 INTAKE PAIN ASSESSMENT Are you having pain associated with your visit today? Yes, Provider notified Yes, Provider notified Pain Scales Verbal (Numeric Rating or Visual Analog Scale) Verbal (Numeric Rating or Visual Analog Scale) Pain Level 7 9 Pain Location Leg-Left Leg-Right Description Aching;Dull;Burning;Numbness;Sha rp;Stabbing Aching;Dull;Sharp;Stabbing;Tingl ing Frequency Continuous Continuous Intervention/Comfort measure Medication Medication HPI Patient is getting adequate relief from the present regimen and denies any side effect from it except for constipation that is relieved by Movantik and MiraLAX. This has improved the patient?s level of functionality and has been able to perform activities of daily living. The patient exhibits no aberrant behavior. The PDMP report and last UDS are both consistent with prescribed medications and are unremarkable. Patient is no longer taking Lunesta and Cialis Review of Systems Constitutional: Negative for fever and unexpected weight change. Gastrointestinal: Positive for constipation. Musculoskeletal: + back pain, joint pain/swelling, numbness, tingling, muscle cramps/weakness, stiffness, arthritis, sciatica, restless legs, leg pain at night and leg pain with exertion. Objective BP 124/74 (BP Site: Left Arm, BP Position: Sitting, BP Cuff Size: Large Adult) Pulse 101 Temp 36.3 ?C (97.4 ?F) (Temporal) Resp 20 Ht 170.2 cm (5' 7) Wt 88.5 kg (195 lb) SpO2 99% BMI 30.54 kg/m? Physical Exam Vitals and nursing note reviewed. Constitutional: General: He is not in acute distress. Appearance: Normal appearance. He is well-developed and well-groomed. He is obese. HENT: Head: Normocephalic and atraumatic. Right Ear: External ear normal. Decreased hearing noted. Left Ear: External ear normal. Decreased hearing noted. Ears: Comments: Wearing hearing aids. Nose: Nose normal. Eyes: General: No scleral icterus. Extraocular Movements: Extraocular movements intact. Conjunctiva/sclera: Conjunctivae normal. Comments: Wearing glasses Musculoskeletal: Comments: He walks with a limp but is not using any assistive devices. The patient has tenderness to palpation in the thoracic and lumbar region with spasms noted in the paraspinal muscles. There is allodynia and hyperpathia noted in the BLE, right > left. Strength is 5/5 throughout. SLR is negative. He has tenderness to palpation in his right knee with crepitus noted. There is decreased hair growth and a reddish discoloration noted in the distal RLE. He has a prosthetic device noted in the distal LLE. There is allodynia noted in the left hand. Skin: General: Skin is warm and dry. Neurological: Mental Status: He is alert and oriented to person, place, and time. Psychiatric: Attention and Perception: Attention and perception normal. Mood and Affect: Mood and affect normal. Speech: Speech normal. Behavior: Behavior normal. Behavior is cooperative. Thought Content: Thought content normal. Judgment: Judgment normal. Assessment and Plan ASSESSMENT/PLAN: 1. Complex regional pain syndrome type 1 of left lower extremity - [facility] - ICD9: 337.22, ICD10: G90.522 (primary diagnosis) - TOXASSURE? FLEX 23, URINE 2. Complex regional pain syndrome type 1 of right lower extremity - [facility] - ICD9: 337.22, ICD10: G90.521 3. Osteoarthritis of right knee, unspecified osteoarthritis type - [facility] - ICD9: 715.96, ICD10: M17.11 4. Psychogenic pain - C - ICD9: 307.80, ICD10: F45.42 PLAN: Repeat urine drug screen this visit. The patient will continue with Nucynta, duloxetine, terazosin, omeprazole, Movantik, and MiraLAX. He was encouraged to increase fluid and fiber intake. He will continue using his spinal cord stimulator. Patient will continue with core strengthening and range of motion exercises. He was encouraged to lose weight. Follow-up in office in 6 weeks time. 30 minutes spent for chronic pain management distinct from evaluation and management Two or more stable chronic illness and prescription medication management This document was transcribed using a voice recognition software and may contain minor errors. Chavez Stinson (more content not included)... [facility] 03-19-2024 Telephone encounter Note The following approved medication requests have been transmitted electronically. Requested Prescriptions Signed Prescriptions Disp Refills tapentadol (NUCYNTA) 100 mg tab 120 tablet 0 Sig: Take 1 tablet by mouth every 6 hours as needed for up to 30 days. Authorizing Provider: ESTELA DAY PA-C [facility] 03-19-2024 Miscellaneous Notes The following approved medication requests have been transmitted electronically. Requested Prescriptions Signed Prescriptions Disp Refills tapentadol (NUCYNTA) 100 mg tab 120 tablet 0 Sig: Take 1 tablet by mouth every 6 hours as needed for up to 30 days. Authorizing Provider: ESTELA DAY PA-C Patient called and stated that nucynta script was sent to the wrong pharmacy. Called and cancelled script t [facility] pharmacy. New script attached to go to [facility]. Tuyet Randolph RN documented in this encounter [facility] 03-19-2024 Telephone encounter Note Patient called and stated that nucynta script was sent to the wrong pharmacy. Called and cancelled script aqt [facility] pharmacy. New script attached to go to [facility]. Tuyet Randolph RN [facility] 03-19-2024 Telephone encounter Note The following approved medication requests have been transmitted electronically. Requested Prescriptions Signed Prescriptions Disp Refills tapentadol (NUCYNTA) 100 mg tab 120 tablet 0 Sig: Take 1 tablet by mouth every 6 hours as needed for up to 30 days. Authorizing Provider: ESTELA DAY PA-C [facility] 03-19-2024 Miscellaneous Notes The following approved medication requests have been transmitted electronically. Requested Prescriptions Signed Prescriptions Disp Refills tapentadol (NUCYNTA) 100 mg tab 120 tablet 0 Sig: Take 1 tablet by mouth every 6 hours as needed for up to 30 days. Authorizing Provider: ESTELA DAY PA-C Patient phones requesting refills as follows: Requested Prescriptions Pending Prescriptions Disp Refills tapentadol (NUCYNTA) 100 mg tab 120 tablet 0 Sig: Take 1 tablet by mouth every 6 hours as needed for up to 30 days. Last UDS: Opioid/non opioid Agreement signed 11/15/23 BWC DX 01/25/23 03/09/2023 change nucynta to er 250 mg bid due 03/23/2023 12/27/23 - See tree doctor letter (imported 12/26) for support of power WC 01/25/24 Power wheelchair was denied. No results found for: SUMM, PREGAB No results found for: UQNOTE, OPIATEPNMGT, DRUGSCRPAIN Urine Panel: No results found for: UQCANN, UQBNZL, JAV9MQK, UQAMPH, UQMAMP, UQBUPRE, UQNORBUP, UQMTHD, UQEDDP, UQTRAM, UQDTRM, UQFNTL, UQNFTL, UQCODE, UQMORP, UQDCDN, UQHCOD, UQOXYC, UQHMOR, UQOXYM, UQCREA, UQPH, UQSPGR, UQOXID, UQSPQ @FLOW([id number])@ No results found for: SUMM Summary Report (Summary) Date Value Ref Range Status 08/11/2022 FINAL Final Comment: ==== TOXASSURE COMP DRUG ANALYSIS,UR ==== Test Result Flag Units Drug Present and Declared for Prescription Verification Tapentadol >43794 EXPECTED ng/mg creat Source of tapentadol is a scheduled prescription medication. Duloxetine PRESENT EXPECTED Drug Present not Declared for Prescription Verification Alcohol, Ethyl 0.053 UNEXPECTED g/dL Sources of ethyl alcohol include alcoholic beverages or as a fermentation product of glucose; glucose is present in this specimen. Interpret result with caution, as the presence of ethyl alcohol is likely due, at least in part, to fermentation of glucose. ==== Test Result Flag Units Ref Range Creatinine 96 mg/dL >=20 ==== Declared Medications: The flagging and interpretation on this report are based on the following declared medications. Unexpected results may arise from inaccuracies in the declared medications. Note: The testing scope of this panel includes these medications: Duloxetine (Cymbalta) Tapentadol (Nucynta) ==== For clinical consultation, please call . ==== Last Opioid agreement effective date: 11/15/2023 Please review and advise. Tuyet Randolph RN documented in this encounter [facility] 03-19-2024 Telephone encounter Note Patient phones requesting refills as follows: Requested Prescriptions Pending Prescriptions Disp Refills tapentadol (NUCYNTA) 100 mg tab 120 tablet 0 Sig: Take 1 tablet by mouth every 6 hours as needed for up to 30 days. Last UDS: Opioid/non opioid Agreement signed 11/15/23 BWC DX 01/25/23 03/09/2023 change nucynta to er 250 mg bid due 03/23/2023 12/27/23 - See tree doctor letter (imported 12/26) for support of power WC 01/25/24 Power wheelchair was denied. No results found for: SUMM, PREGAB No results found for: UQNOTE, OPIATEPNMGT, DRUGSCRPAIN Urine Panel: No results found for: UQCANN, UQBNZL, BAH8HOC, UQAMPH, UQMAMP, UQBUPRE, UQNORBUP, UQMTHD, UQEDDP, UQTRAM, UQDTRM, UQFNTL, UQNFTL, UQCODE, UQMORP, UQDCDN, UQHCOD, UQOXYC, UQHMOR, UQOXYM, UQCREA, UQPH, UQSPGR, UQOXID, UQSPQ @FLOW([id number])@ No results found for: SUMM Summary Report (Summary) Date Value Ref Range Status 08/11/2022 FINAL Final Comment: ==== TOXASSURE COMP DRUG ANALYSIS,UR ==== Test Result Flag Units Drug Present and Declared for Prescription Verification Tapentadol >32222 EXPECTED ng/mg creat Source of tapentadol is a scheduled prescription medication. Duloxetine PRESENT EXPECTED Drug Present not Declared for Prescription Verification Alcohol, Ethyl 0.053 UNEXPECTED g/dL Sources of ethyl alcohol include alcoholic beverages or as a fermentation product of glucose; glucose is present in this specimen. Interpret result with caution, as the presence of ethyl alcohol is likely due, at least in part, to fermentation of glucose. ==== Test Result Flag Units Ref Range Creatinine 96 mg/dL >=20 ==== Declared Medications: The flagging and interpretation on this report are based on the following declared medications. Unexpected results may arise from inaccuracies in the declared medications. Note: The testing scope of this panel includes these medications: Duloxetine (Cymbalta) Tapentadol (Nucynta) ==== For clinical consultation, please call . ==== Last Opioid agreement effective date: 11/15/2023 Please review and advise. Tuyet Randolph RN [facility] 02-27-2024 Telephone encounter Note The following approved medication requests have been transmitted electronically. Requested Prescriptions Pending Prescriptions Disp Refills DULoxetine (CYMBALTA) 60 mg capsule 60 capsule 3 Sig: Take 1 capsule by mouth two times a day. omeprazole (PRILOSEC) 40 mg capsule 60 capsule 3 Sig: Take 1 capsule by mouth two times a day. MOVANTIK 25 mg tablet 30 tablet 3 Sig: Take 1 tablet by mouth once daily as needed. Estela Day PA-C [facility] 02-27-2024 Miscellaneous Notes The following approved medication requests have been transmitted electronically. Requested Prescriptions Pending Prescriptions Disp Refills DULoxetine (CYMBALTA) 60 mg capsule 60 capsule 3 Sig: Take 1 capsule by mouth two times a day. omeprazole (PRILOSEC) 40 mg capsule 60 capsule 3 Sig: Take 1 capsule by mouth two times a day. MOVANTIK 25 mg tablet 30 tablet 3 Sig: Take 1 tablet by mouth once daily as needed. Estela Day PA-C Patient phones requesting refills as follows: Requested Prescriptions Pending Prescriptions Disp Refills DULoxetine (CYMBALTA) 60 mg capsule 60 capsule 3 Sig: Take 1 capsule by mouth two times a day. omeprazole (PRILOSEC) 40 mg capsule 60 capsule 3 Sig: Take 1 capsule by mouth two times a day. MOVANTIK 25 mg tablet 30 tablet 3 Sig: Take 1 tablet by mouth once daily as needed. Last UDS: Opioid/non opioid Agreement signed 11/15/23 BWC DX 01/25/23 03/09/2023 change nucynta to er 250 mg bid due 03/23/2023 12/27/23 - See tree doctor letter (imported 12/26) for support of power WC 01/25/24 Power wheelchair was denied. No results found for: SUMM, PREGAB No results found for: UQNOTE, OPIATEPNMGT, DRUGSCRPAIN Urine Panel: No results found for: UQCANN, UQBNZL, OAB4NIE, UQAMPH, UQMAMP, UQBUPRE, UQNORBUP, UQMTHD, UQEDDP, UQTRAM, UQDTRM, UQFNTL, UQNFTL, UQCODE, UQMORP, UQDCDN, UQHCOD, UQOXYC, UQHMOR, UQOXYM, UQCREA, UQPH, UQSPGR, UQOXID, UQSPQ @FLOW([id number])@ No results found for: SUMM Summary Report (Summary) Date Value Ref Range Status 08/11/2022 FINAL Final Comment: ==== TOXASSURE COMP DRUG ANALYSIS,UR ==== Test Result Flag Units Drug Present and Declared for Prescription Verification Tapentadol >23420 EXPECTED ng/mg creat Source of tapentadol is a scheduled prescription medication. Duloxetine PRESENT EXPECTED Drug Present not Declared for Prescription Verification Alcohol, Ethyl 0.053 UNEXPECTED g/dL Sources of ethyl alcohol include alcoholic beverages or as a fermentation product of glucose; glucose is present in this specimen. Interpret result with caution, as the presence of ethyl alcohol is likely due, at least in part, to fermentation of glucose. ==== Test Result Flag Units Ref Range Creatinine 96 mg/dL >=20 ==== Declared Medications: The flagging and interpretation on this report are based on the following declared medications. Unexpected results may arise from inaccuracies in the declared medications. Note: The testing scope of this panel includes these medications: Duloxetine (Cymbalta) Tapentadol (Nucynta) ==== For clinical consultation, please call . ==== Last Opioid agreement effective date: 11/15/2023 Please review and advise. Pam Nguyen RN documented in this encounter [facility] 02-27-2024 Telephone encounter Note Patient phones requesting refills as follows: Requested Prescriptions Pending Prescriptions Disp Refills DULoxetine (CYMBALTA) 60 mg capsule 60 capsule 3 Sig: Take 1 capsule by mouth two times a day. omeprazole (PRILOSEC) 40 mg capsule 60 capsule 3 Sig: Take 1 capsule by mouth two times a day. MOVANTIK 25 mg tablet 30 tablet 3 Sig: Take 1 tablet by mouth once daily as needed. Last UDS: Opioid/non opioid Agreement signed 11/15/23 BWC DX 01/25/23 03/09/2023 change nucynta to er 250 mg bid due 03/23/2023 2/27/24 - See tree doctor letter (imported 12/26) for support of power WC 01/25/24 Power wheelchair was denied. No results found for: SUMM, PREGAB No results found for: UQNOTE, OPIATEPNMGT, DRUGSCRPAIN Urine Panel: No results found for: UQCANN, UQBNZL, HBL1MTE, UQAMPH, UQMAMP, UQBUPRE, UQNORBUP, UQMTHD, UQEDDP, UQTRAM, UQDTRM, UQFNTL, UQNFTL, UQCODE, UQMORP, UQDCDN, UQHCOD, UQOXYC, UQHMOR, UQOXYM, UQCREA, UQPH, UQSPGR, UQOXID, UQSPQ @FLOW([id number])@ No results found for: SUMM Summary Report (Summary) Date Value Ref Range Status 08/11/2022 FINAL Final Comment: ==== TOXASSURE COMP DRUG ANALYSIS,UR ==== Test Result Flag Units Drug Present and Declared for Prescription Verification Tapentadol >02391 EXPECTED ng/mg creat Source of tapentadol is a scheduled prescription medication. Duloxetine PRESENT EXPECTED Drug Present not Declared for Prescription Verification Alcohol, Ethyl 0.053 UNEXPECTED g/dL Sources of ethyl alcohol include alcoholic beverages or as a fermentation product of glucose; glucose is present in this specimen. Interpret result with caution, as the presence of ethyl alcohol is likely due, at least in part, to fermentation of glucose. ==== Test Result Flag Units Ref Range Creatinine 96 mg/dL >=20 ==== Declared Medications: The flagging and interpretation on this report are based on the following declared medications. Unexpected results may arise from inaccuracies in the declared medications. Note: The testing scope of this panel includes these medications: Duloxetine (Cymbalta) Tapentadol (Nucynta) ==== For clinical consultation, please call . ==== Last Opioid agreement effective date: 11/15/2023 Please review and advise. Pam Nguyen RN [facility] 02-07-2024 Instructions Estela Day PA-C - 02/07/2024 8:31 AM EDT The OARRS report has been reviewed and is consistent with the patients medical history and medication intake. He will continue with Nucynta, duloxetine, terazosin, omeprazole, eszopiclone, Movantik, tadalafil, and MiraLAX. Patient was encouraged to increase fluid and fiber intake. He will continue using his spinal cord stimulator. Call Maggy if you need to have this reprogrammed [phone]. He will continue with core strengthening and range of motion exercises. Follow-up in the office in [address] Hernandez I discussed the patient with Dr. Hernandez who agrees with my assessment and plan. All of the above is to improve functionality and quality of life. No evidence of drug abuse or diversion is seen at this time. documented in this encounter [facility] 02-07-2024 History of Presen t illness Narrative This note was created using Promote[employer]. Subjective Cong Harrison is a 59 year old male. The patient primarily being seen for left leg pain - [facility] Patient was last seen on: 12/27/23 At that time, the treatment plan was: see notes Current Meds: Nucynta - last dose this am, Cymbalta - this am, Prilosec - this am, Hytrin - last pm, Movantik- this am Efficacy: help somewhat Side effects: constipation - relieved with Miralax and Movantik TENS unit: has SCS How often used: 23/05 Benefit: helps Physical Therapy: years ago Last UDS: 10/05/23 Last injection: none OARRS reviewed At the present time, the patient reports some benefit with his present analgesic therapy. He is using movantik and miralax for his constipation. Since his previous visit, he denies any hospitalizations or ER visits. He states that the spinal cord stimulator helps and covers his areas of pain. 12/27/2023 02/07/2024 INTAKE PAIN ASSESSMENT Are you having pain associated with your visit today? Yes, Provider notified Yes, Provider notified Pain Scales Verbal (Numeric Rating or Visual Analog Scale) Verbal (Numeric Rating or Visual Analog Scale) Pain Level 7 7 Pain Location Leg-Left Leg-Left Description Aching;Dull;Burning;Sharp;Shooti ng Aching;Dull;Burning;Numbness;Sha rp;Stabbing Frequency Continuous Continuous Intervention/Comfort measure Medication Medication HPI PAST MEDICAL HISTORY Diagnosis Date Amputated left leg (HCC) 2004 GERD (gastroesophageal reflux disease) PAST SURGICAL HISTORY Procedure Laterality Date ARTHROPLASTY HEMIARTHROPLASTY total knee ORTHOPEDICS SURGERY HX N/A 20 srg on left leg PRQ IMPLTJ NSTIM ELECTRODE ARRAY EPIDURAL SCS WRIST SURGERY HX right Social History Tobacco Use Smoking status: Never Smokeless tobacco: Never Substance Use Topics Alcohol use: Not Currently Drug use: Never Review of Systems Constitutional: Negative for fever and unexpected weight change. Gastrointestinal: Positive for constipation. Musculoskeletal: + back pain, joint pain/swelling, numbness, tingling, muscle cramps/weakness, stiffness, arthritis, sciatica, restless legs, leg pain at night and leg pain with exertion. Objective BP 139/73 (BP Site: Left Arm, BP Position: Sitting, BP Cuff Size: Large Adult) Pulse 84 Temp 36.3 C (97.3 F) (Temporal) Resp 20 Ht 170.2 cm (5' 7) Wt 88.9 kg (196 lb) SpO2 99% BMI 30.70 kg/m Physical Exam Vitals and nursing note reviewed. Constitutional: Appearance: Normal appearance. He is well-developed and well-groomed. He is obese. HENT: Head: Normocephalic and atraumatic. Right Ear: Decreased hearing noted. Left Ear: Decreased hearing noted. Ears: Comments: Wearing hearing aids. Eyes: Conjunctiva/sclera: Conjunctivae normal. Comments: Wearing glasses Musculoskeletal: Comments: He walks with a limp but is not using any assistive devices. The patient has tenderness to palpation in the thoracic and lumbar region with spasms noted in the paraspinal muscles. There is allodynia and hyperpathia noted in the BLE, right > left. Strength is 5/5 throughout. SLR is negative. He has tenderness to palpation in his right knee with crepitus noted. There is decreased hair growth and a reddish discoloration noted in the distal RLE. He has a prosthetic device noted in the distal LLE. There is allodynia noted in the left hand. Neurological: Mental Status: He is alert and oriented to person, place, and time. Psychiatric: Attention and Perception: Attention and perception normal. Mood and Affect: Mood and affect normal. Speech: Speech normal. Behavior: Behavior normal. Behavior is cooperative. Thought Content: Thought content normal. Judgment: Judgment normal. Assessment and Plan ASSESSMENT/PLAN: 1. Complex regional pain syndrome type 1 of left lower extremity - ICD9: 337.22, ICD10: G90.522 (primary diagnosis) The OARRS report has been reviewed and is consistent with the patients medical history and medication intake. He will continue with Nucynta, duloxetine, terazosin, omeprazole, eszopiclone, Movantik, tadalafil, and MiraLAX. Patient was encouraged to increase fluid and fiber intake. He will continue using his spinal cord stimulator. Call Maggy if you need to have this reprogrammed [phone]. He will continue with core strengthening and range of motion exercises. Follow-up in the office in [address] Hernandez 2. Complex regional pain syndrome type 1 of right lower extremity - ICD9: 337.22, ICD10: G90.521 3. Osteoarthritis of right knee, unspecified osteoarthritis type - [facility] - ICD9: 715.96, ICD10: M17.11 4. Psychogenic pain - [facility] - ICD9: 307.80, ICD10: F45.42 Estela Day PA-C documented in this encounter [facility] 02-07-2024 Note HNO ID: [id number] Author: ESTELA DAY PA-C Service: ? Author Type: Physician Freelance Designer Type: Progress Notes Filed: 02/07/2024 08:41 Note Text: This note was created using NoteWriter. Subjective Cong Harrison is a 59 year old male. The patient primarily being seen for left leg pain - [facility] Patient was last seen on: 12/27/23 At that time, the treatment plan was: see notes Current Meds: Nucynta - last dose this am, Cymbalta - this am, Prilosec - this am, Hytrin - last pm, Movantik- this am Efficacy: help somewhat Side effects: constipation - relieved with Miralax and Movantik TENS unit: has SCS How often used: 23/05 Benefit: helps Physical Therapy: years ago Last UDS: 10/05/23 Last injection: none OARRS reviewed At the present time, the patient reports some benefit with his present analgesic therapy. He is using movantik and miralax for his constipation. Since his previous visit, he denies any hospitalizations or ER visits. He states that the spinal cord stimulator helps and covers his areas of pain. 12/27/2023 02/07/2024 INTAKE PAIN ASSESSMENT Are you having pain associated with your visit today? Yes, Provider notified Yes, Provider notified Pain Scales Verbal (Numeric Rating or Visual Analog Scale) Verbal (Numeric Rating or Visual Analog Scale) Pain Level 7 7 Pain Location Leg-Left Leg-Left Description Aching;Dull;Burning;Sharp;Shooti ng Aching;Dull;Burning;Numbness;Sha rp;Stabbing Frequency Continuous Continuous Intervention/Comfort measure Medication Medication HPI PAST MEDICAL HISTORY Diagnosis Date Amputated left leg (HCC) 2003 GERD (gastroesophageal reflux disease) PAST SURGICAL HISTORY Procedure Laterality Date ARTHROPLASTY HEMIARTHROPLASTY total knee ORTHOPEDICS SURGERY HX N/A 20 srg on left leg PRQ IMPLTJ NSTIM ELECTRODE ARRAY EPIDURAL SCS WRIST SURGERY HX right Social History Tobacco Use Smoking status: Never Smokeless tobacco: Never Substance Use Topics Alcohol use: Not Currently Drug use: Never Review of Systems Constitutional: Negative for fever and unexpected weight change. Gastrointestinal: Positive for constipation. Musculoskeletal: + back pain, joint pain/swelling, numbness, tingling, muscle cramps/weakness, stiffness, arthritis, sciatica, restless legs, leg pain at night and leg pain with exertion. Objective BP 139/73 (BP Site: Left Arm, BP Position: Sitting, BP Cuff Size: Large Adult) Pulse 84 Temp 36.3 ?C (97.3 ?F) (Temporal) Resp 20 Ht 170.2 cm (5' 7) Wt 88.9 kg (196 lb) SpO2 99% BMI 30.70 kg/m? Physical Exam Vitals and nursing note reviewed. Constitutional: Appearance: Normal appearance. He is well-developed and well-groomed. He is obese. HENT: Head: Normocephalic and atraumatic. Right Ear: Decreased hearing noted. Left Ear: Decreased hearing noted. Ears: Comments: Wearing hearing aids. Eyes: Conjunctiva/sclera: Conjunctivae normal. Comments: Wearing glasses Musculoskeletal: Comments: He walks with a limp but is not using any assistive devices. The patient has tenderness to palpation in the thoracic and lumbar region with spasms noted in the paraspinal muscles. There is allodynia and hyperpathia noted in the BLE, right > left. Strength is 5/5 throughout. SLR is negative. He has tenderness to palpation in his right knee with crepitus noted. There is decreased hair growth and a reddish discoloration noted in the distal RLE. He has a prosthetic device noted in the distal LLE. There is allodynia noted in the left hand. Neurological: Mental Status: He is alert and oriented to person, place, and time. Psychiatric: Attention and Perception: Attention and perception normal. Mood and Affect: Mood and affect normal. Speech: Speech normal. Behavior: Behavior normal. Behavior is cooperative. Thought Content: Thought content normal. Judgment: Judgment normal. Assessment and Plan ASSESSMENT/PLAN: 1. Complex regional pain syndrome type 1 of left lower extremity - ICD9: 337.22, ICD10: G90.522 (primary diagnosis) The OARRS report has been reviewed and is consistent with the patients medical history and medication intake. He will continue with Nucynta, duloxetine, terazosin, omeprazole, eszopiclone, Movantik, tadalafil, and MiraLAX. Patient was encouraged to increase fluid and fiber intake. He will continue using his spinal cord stimulator. Call Maggy if you need to have this reprogrammed [phone]. He will continue with core strengthening and range of motion exercises. Follow-up in the office in [address] Hernandez 2. Complex regional pain syndrome type 1 of right lower extremity - ICD9: 337.22, ICD10: G90.521 3. Osteoarthritis of right knee, unspecified osteoarthritis type - [facility] - ICD9: 715.96, ICD10: M17.11 4. Psychogenic pain - [facility] - ICD9: 307.80, ICD10: F45.42 Estela Day PA-C [facility] 01-20-2024 Miscellaneous Notes The following approved medication requests have been transmitted electronically. Requested Prescriptions Pending Prescriptions Disp Refills terazosin (HYTRIN) 1 mg capsule 90 capsule 1 Sig: Take 1 capsule by mouth once daily. Estela Day PA-C Patient phones requesting refills as follows: Requested Prescriptions No prescriptions requested or ordered in this encounter Last UDS: Opioid/non opioid Agreement signed 11/15/23 BWC DX 01/25/23 03/09/2023 change nucynta to er 250 mg bid due 03/23/2023 12/27/23 - See tree doctor letter (imported 12/26) for support of power WC No results found for: SUMM, PREGAB No results found for: UQNOTE, OPIATEPNMGT, DRUGSCRPAIN Urine Panel: No results found for: UQCANN, UQBNZL, CQD4GOH, UQAMPH, UQMAMP, UQBUPRE, UQNORBUP, UQMTHD, UQEDDP, UQTRAM, UQDTRM, UQFNTL, UQNFTL, UQCODE, UQMORP, UQDCDN, UQHCOD, UQOXYC, UQHMOR, UQOXYM, UQCREA, UQPH, UQSPGR, UQOXID, UQSPQ @FLOW([id number])@ No results found for: SUMM Summary Report (Summary) Date Value Ref Range Status 08/11/2022 FINAL Final Comment: ==== TOXASSURE COMP DRUG ANALYSIS,UR ==== Test Result Flag Units Drug Present and Declared for Prescription Verification Tapentadol >53399 EXPECTED ng/mg creat Source of tapentadol is a scheduled prescription medication. Duloxetine PRESENT EXPECTED Drug Present not Declared for Prescription Verification Alcohol, Ethyl 0.053 UNEXPECTED g/dL Sources of ethyl alcohol include alcoholic beverages or as a fermentation product of glucose; glucose is present in this specimen. Interpret result with caution, as the presence of ethyl alcohol is likely due, at least in part, to fermentation of glucose. ==== Test Result Flag Units Ref Range Creatinine 96 mg/dL >=20 ==== Declared Medications: The flagging and interpretation on this report are based on the following declared medications. Unexpected results may arise from inaccuracies in the declared medications. Note: The testing scope of this panel includes these medications: Duloxetine (Cymbalta) Tapentadol (Nucynta) ==== For clinical consultation, please call . ==== Last Opioid agreement effective date: 11/15/2023 Please review and advise. Tuyet Randolph RN documented in this encounter [facility] 01-12-2024 Miscellaneous Notes The following approved medication requests have been transmitted electronically. Requested Prescriptions Signed Prescriptions Disp Refills tapentadol (NUCYNTA) 100 mg tab 120 tablet 0 Sig: Take 1 tablet by mouth every 6 hours as needed for up to 30 days. Authorizing Provider: ESTELA DAY PA-C Patient phones requesting refills as follows: Requested Prescriptions Pending Prescriptions Disp Refills tapentadol (NUCYNTA) 100 mg tab 120 tablet 0 Sig: Take 1 tablet by mouth every 6 hours as needed for up to 30 days. Last UDS: Opioid/non opioid Agreement signed 11/15/23 BWC DX 01/25/23 03/09/2023 change nucynta to er 250 mg bid due 03/23/2023 12/27/23 - See tree doctor letter (imported 12/26) for support of power WC No results found for: SUMM, PREGAB No results found for: UQNOTE, OPIATEPNMGT, DRUGSCRPAIN Urine Panel: No results found for: UQCANN, UQBNZL, ITG5EAJ, UQAMPH, UQMAMP, UQBUPRE, UQNORBUP, UQMTHD, UQEDDP, UQTRAM, UQDTRM, UQFNTL, UQNFTL, UQCODE, UQMORP, UQDCDN, UQHCOD, UQOXYC, UQHMOR, UQOXYM, UQCREA, UQPH, UQSPGR, UQOXID, UQSPQ @FLOW([id number])@ No results found for: SUMM Summary Report (Summary) Date Value Ref Range Status 08/11/2022 FINAL Final Comment: ==== TOXASSURE COMP DRUG ANALYSIS,UR ==== Test Result Flag Units Drug Present and Declared for Prescription Verification Tapentadol >10168 EXPECTED ng/mg creat Source of tapentadol is a scheduled prescription medication. Duloxetine PRESENT EXPECTED Drug Present not Declared for Prescription Verification Alcohol, Ethyl 0.053 UNEXPECTED g/dL Sources of ethyl alcohol include alcoholic beverages or as a fermentation product of glucose; glucose is present in this specimen. Interpret result with caution, as the presence of ethyl alcohol is likely due, at least in part, to fermentation of glucose. ==== Test Result Flag Units Ref Range Creatinine 96 mg/dL >=20 ==== Declared Medications: The flagging and interpretation on this report are based on the following declared medications. Unexpected results may arise from inaccuracies in the declared medications. Note: The testing scope of this panel includes these medications: Duloxetine (Cymbalta) Tapentadol (Nucynta) ==== For clinical consultation, please call . ==== Last Opioid agreement effective date: 11/15/2023 Please review and advise. Josette Wong RN documented in this encounter [facility] 12-27-2023 Instructions Estela Day PA-C - 12/27/2023 8:35 AM EST The OARRS report has been reviewed and is consistent with the patients medical history and medication intake. The patient underwent a random drug screen at today's office visit. He will continue with Nucynta, duloxetine, terazosin, omeprazole, eszopiclone, Movantik, tadalafil, and MiraLAX. Patient was encouraged to increase fluid and fiber intake. He will continue using his spinal cord stimulator. Call Maggy if you need to have this reprogrammed [phone]. He will continue with core strengthening and range of motion exercises. Follow-up in office in 6 weeks time. We will continue to work on getting a power wheelchair to assist him when he has to walk longer distances. I discussed the patient with Dr. Hernandez who agrees with my assessment and plan. All of the above is to improve functionality and quality of life. No evidence of drug abuse or diversion is seen at this time. documented in this encounter [facility] 12-27-2023 Note HNO ID: [id number] Author: ESTELA DAY PA-C Service: ? Author Type: Physician Freelance Designer Type: Progress Notes Filed: 12/27/2023 08:56 Note Text: This note was created using NoteWriter. Subjective Cong Harrison is a 58 year old male. The patient primarily being seen for left leg pain - [facility] Patient was last seen on: 11/15/23 At that time, the treatment plan was: see notes Current Meds: Nucynta - last dose this am, Cymbalta - this am, Prilosec - this am, Hytrin - last pm, Movantik - this am Efficacy: help Side effects: none TENS unit: has SCS How often used: 23/05 Benefit: helps Physical Therapy: years ago Last UDS: 10/05/23 Last injection: none OARRS reviewed At the present time, the patient reports benefit with his present analgesic therapy. He uses movantik for his constipation. He is worried about his medications because [facility]'s payment system is currently down and he can not afford to pay reyes for his movantik or nucynta and then get reimbursed. Since his previous visit, he denies any hospitalizations or ER visits. He states that the spinal cord stimulator helps and covers his areas of pain. He is working on getting a motorized wheelchair for when he wants to go to places that would require him to cover longer distances. He states he does not need a walker or cane when coming in to our office for his appointments due to it being a shorter distance. When he walks for longer distances he uses a cane but even with the cane he is limited in how long he can walk before he has to stop to rest. He also has issues with the leg giving out when he is on it for longer periods oftime. He is worried that he would not have the arm strength to use a manual wheelchair all day which would limit him to only going out when he has someone else to assist him, which limits his independence. INTAKE PAIN ASSESSMENT 11/15/2023 12/27/2023 Are you having pain associated with your visit today? Yes, Provider notified Yes, Provider notified Pain Scales Verbal (Numeric Rating or Visual Analog Scale) Verbal (Numeric Rating or Visual Analog Scale) Pain Level 7 7 Pain Location Leg-Left Leg-Left Description Stabbing;Aching;Burning Aching;Dull;Burning;Sharp;Shooti ng Duration Amount of Time - - Duration Units - - Frequency Continuous Continuous Intervention/Comfort measure Medication;Other: See comment Medication Comments - - HPI PAST MEDICAL HISTORY Diagnosis Date Amputated left leg (HCC) 2003 GERD (gastroesophageal reflux disease) PAST SURGICAL HISTORY Procedure Laterality Date ARTHROPLASTY HEMIARTHROPLASTY total knee ORTHOPEDICS SURGERY HX N/A 20 srg on left leg PRQ IMPLTJ NSTIM ELECTRODE ARRAY EPIDURAL SCS WRIST SURGERY HX right Social History Tobacco Use Smoking status: Never Smokeless tobacco: Never Substance Use Topics Alcohol use: Not Currently Drug use: Never Review of Systems Constitutional: Negative for fever and unexpected weight change. Gastrointestinal: Positive for constipation. Musculoskeletal: + back pain, joint pain/swelling, numbness, tingling, muscle cramps/weakness, stiffness, arthritis, sciatica, restless legs, leg pain at night and leg pain with exertion. Objective BP 125/76 (BP Site: Left Arm, BP Position: Sitting, BP Cuff Size: Large Adult) Pulse 93 Temp 36.4 ?C (97.5 ?F) (Temporal) Resp 20 Ht 170.2 cm (5' 7) Wt 88.9 kg (196 lb) SpO2 97% BMI 30.70 kg/m? Physical Exam Vitals and nursing note reviewed. Constitutional: Appearance: Normal appearance. He is well-developed and well-groomed. He is obese. HENT: Head: Normocephalic and atraumatic. Right Ear: Hearing normal. Left Ear: Hearing normal. Eyes: Conjunctiva/sclera: Conjunctivae normal. Comments: Wearing glasses Musculoskeletal: Comments: He walks with a limp but is not using any assistive devices. The patient has tenderness to palpation in the thoracic and lumbar region with spasms noted in the paraspinal muscles. There is allodynia and hyperpathia noted in the BLE, right > left. Strength is 5/5 throughout. SLR is negative. He has tenderness to palpation in his right knee with crepitus noted. There is decreased hair growth and a reddish discoloration noted in the distal RLE. He has a prosthetic device noted in the distal LLE. There is allodynia noted in the left hand. Neurological: Mental Status: He is alert and oriented to person, place, and time. Psychiatric: Attention and Perception: Attention and perception normal. Mood and Affect: Mood and affect normal. Speech: Speech normal. Behavior: Behavior normal. Behavior is cooperative. Thought Content: Thought content normal. Judgment: Judgment normal. Assessment and Plan ASSESSMENT/PLAN: 1. Complex regional pain syndrome type 1 of left lower extremity - ICD9: 337.22, ICD10: G90.522 (primary diagnosis) The OARRS report has been reviewed and is consistent with the patien (more content not included)... [facility] 12-27-2023 History of Presen t illness Narrative This note was created using NoteWriter. Subjective Cong Harrison is a 58 year old male. The patient primarily being seen for left leg pain - [facility] Patient was last seen on: 11/15/23 At that time, the treatment plan was: see notes Current Meds: Nucynta - last dose this am, Cymbalta - this am, Prilosec - this am, Hytrin - last pm, Movantik - this am Efficacy: help Side effects: none TENS unit: has SCS How often used: 23/05 Benefit: helps Physical Therapy: years ago Last UDS: 10/05/23 Last injection: none OARRS reviewed At the present time, the patient reports benefit with his present analgesic therapy. He uses movantik for his constipation. He is worried about his medications because [facility]'s payment system is currently down and he can not afford to pay reyes for his movantik or nucynta and then get reimbursed. Since his previous visit, he denies any hospitalizations or ER visits. He states that the spinal cord stimulator helps and covers his areas of pain. He is working on getting a motorized wheelchair for when he wants to go to places that would require him to cover longer distances. He states he does not need a walker or cane when coming in to our office for his appointments due to it being a shorter distance. When he walks for longer distances he uses a cane but even with the cane he is limited in how long he can walk before he has to stop to rest. He also has issues with the leg giving out when he is on it for longer periods of time. He is worried that he would not have the arm strength to use a manual wheelchair all day which would limit him to only going out when he has someone else to assist him, which limits his independence. INTAKE PAIN ASSESSMENT 11/15/2023 12/27/2023 Are you having pain associated with your visit today? Yes, Provider notified Yes, Provider notified Pain Scales Verbal (Numeric Rating or Visual Analog Scale) Verbal (Numeric Rating or Visual Analog Scale) Pain Level 7 7 Pain Location Leg-Left Leg-Left Description Stabbing;Aching;Burning Aching;Dull;Burning;Sharp;Shooti ng Duration Amount of Time - - Duration Units - - Frequency Continuous Continuous Intervention/Comfort measure Medication;Other: See comment Medication Comments - - HPI PAST MEDICAL HISTORY Diagnosis Date Amputated left leg (HCC) 2003 GERD (gastroesophageal reflux disease) PAST SURGICAL HISTORY Procedure Laterality Date ARTHROPLASTY HEMIARTHROPLASTY total knee ORTHOPEDICS SURGERY HX N/A 20 srg on left leg PRQ IMPLTJ NSTIM ELECTRODE ARRAY EPIDURAL SCS WRIST SURGERY HX right Social History Tobacco Use Smoking status: Never Smokeless tobacco: Never Substance Use Topics Alcohol use: Not Currently Drug use: Never Review of Systems Constitutional: Negative for fever and unexpected weight change. Gastrointestinal: Positive for constipation. Musculoskeletal: + back pain, joint pain/swelling, numbness, tingling, muscle cramps/weakness, stiffness, arthritis, sciatica, restless legs, leg pain at night and leg pain with exertion. Objective BP 125/76 (BP Site: Left Arm, BP Position: Sitting, BP Cuff Size: Large Adult) Pulse 93 Temp 36.4 C (97.5 F) (Temporal) Resp 20 Ht 170.2 cm (5' 7) Wt 88.9 kg (196 lb) SpO2 97% BMI 30.70 kg/m Physical Exam Vitals and nursing note reviewed. Constitutional: Appearance: Normal appearance. He is well-developed and well-groomed. He is obese. HENT: Head: Normocephalic and atraumatic. Right Ear: Hearing normal. Left Ear: Hearing normal. Eyes: Conjunctiva/sclera: Conjunctivae normal. Comments: Wearing glasses Musculoskeletal: Comments: He walks with a limp but is not using any assistive devices. The patient has tenderness to palpation in the thoracic and lumbar region with spasms noted in the paraspinal muscles. There is allodynia and hyperpathia noted in the BLE, right > left. Strength is 5/5 throughout. SLR is negative. He has tenderness to palpation in his right knee with crepitus noted. There is decreased hair growth and a reddish discoloration noted in the distal RLE. He has a prosthetic device noted in the distal LLE. There is allodynia noted in the left hand. Neurological: Mental Status: He is alert and oriented to person, place, and time. Psychiatric: Attention and Perception: Attention and perception normal. Mood and Affect: Mood and affect normal. Speech: Speech normal. Behavior: Behavior normal. Behavior is cooperative. Thought Content: Thought content normal. Judgment: Judgment normal. Assessment and Plan ASSESSMENT/PLAN: 1. Complex regional pain syndrome type 1 of left lower extremity - ICD9: 337.22, ICD10: G90.522 (primary diagnosis) The OARRS report has been reviewed and is consistent with the patients medical history and medication intake. The patient underwent a random drug screen at today's office visit. He will continue with Nucynta, duloxetine, terazosin, omeprazole, eszopiclone, Movantik, tadalafil, and MiraLAX. Patient was encouraged to increase fluid and fiber intake. He will continue using his spinal cord stimulator. Call Maggy if you need to have this reprogrammed [phone]. He will continue with core strengthening and range of motion exercises. Follow-up in office in 6 weeks time. We will continue to work on getting a power wheelchair to assist him when he has to walk longer distances. 2. Complex regional pain syndrome type 1 of right lower extremity - ICD9: 337.22, ICD10: G90.521 3. Osteoarthritis of right knee, unspecified osteoarthritis type - [facility] - ICD9: 715.96, ICD10: M17.11 4. Psychogenic pain - [facility] - ICD9: 307.80, ICD10: F45.42 Estela Day PA-C documented in this encounter [facility] 11-15-2023 Note HNO ID: [id number] Author: ESTELA DAY PA-C Service: ? Author Type: Physician Freelance Designer Type: Progress Notes Filed: 11/15/2023 09:00 Note Text: This note was created using Q-Senseiriter. Subjective Cong Harrison is a 58 year old male. The patient primarily being seen for left leg pain [facility] Patient was last seen on: 10/05/23 At that time, the treatment plan was: see notes Current Meds: Nucynta last dose this am,Cymbalta last dose this am, Prilosec last dose this am, hytrin last dose last pm, Movantik last dose this am Efficacy: med help somewhat Side effects: constipation TENS unit: SCS How often used: Benefit: Physical Therapy: Last UDS: 04/22 Last injection:none OARRS reviewed yes At the present time, the patient reports some benefit with his present analgesic therapy. He uses movantik for his constipation. He tried the sildenafil but states this was not effective and he would like to try something different. Since his previous visit, he denies any hospitalizations or ER visits. He states that the spinal cord stimulator helps and covers his areas of pain. INTAKE PAIN ASSESSMENT 10/05/2023 11/15/2023 Are you having pain associated with your visit today? Yes, Provider notified Yes, Provider notified Pain Scales Verbal (Numeric Rating or Visual Analog Scale) Verbal (Numeric Rating or Visual Analog Scale) Pain Level 7 7 Pain Location Leg-Left Leg-Left Description Burning;Aching;Stabbing Stabbing;Aching;Burning Duration Amount of Time - - Duration Units - - Frequency Continuous Continuous Intervention/Comfort measure Medication;Relaxation;Spinal Cord Stimulator Medication;Other: See comment Comments - - HPI PAST MEDICAL HISTORY Diagnosis Date Amputated left leg (HCC) 2003 GERD (gastroesophageal reflux disease) PAST SURGICAL HISTORY Procedure Laterality Date ARTHROPLASTY HEMIARTHROPLASTY total knee ORTHOPEDICS SURGERY HX N/A 20 srg on left leg PRQ IMPLTJ NSTIM ELECTRODE ARRAY EPIDURAL SCS WRIST SURGERY HX right Social History Tobacco Use Smoking status: Never Smokeless tobacco: Never Substance Use Topics Alcohol use: Not Currently Drug use: Never Review of Systems Constitutional: Negative for fever and unexpected weight change. Gastrointestinal: Positive for constipation. Musculoskeletal: + back pain, joint pain/swelling, numbness, tingling, muscle cramps/weakness, stiffness, arthritis, sciatica, restless legs, leg pain at night and leg pain with exertion. Objective BP 135/84 (BP Site: Left Arm, BP Position: Sitting, BP Cuff Size: Large Adult) Pulse 108 Temp 36.4 ?C (97.6 ?F) Resp 18 SpO2 100% Physical Exam Vitals and nursing note reviewed. Constitutional: Appearance: Normal appearance. He is well-developed and well-groomed. He is obese. HENT: Head: Normocephalic and atraumatic. Right Ear: Hearing normal. Left Ear: Hearing normal. Eyes: Conjunctiva/sclera: Conjunctivae normal. Comments: Wearing glasses Musculoskeletal: Comments: He walks with a limp but is not using any assistive devices. The patient has tenderness to palpation in the thoracic and lumbar region with spasms noted in the paraspinal muscles. There is allodynia and hyperpathia noted in the BLE, right > left. Strength is 5/5 throughout. SLR is negative. He has tenderness to palpation in his right knee with crepitus noted. There is decreased hair growth and a reddish discoloration noted in the distal RLE. He has a prosthetic device noted in the distal LLE. There is allodynia noted in the left hand. Neurological: Mental Status: He is alert and oriented to person, place, and time. Psychiatric: Attention and Perception: Attention and perception normal. Mood and Affect: Mood and affect normal. Speech: Speech normal. Behavior: Behavior normal. Behavior is cooperative. Thought Content: Thought content normal. Judgment: Judgment normal. Assessment and Plan ASSESSMENT/PLAN: 1. Complex regional pain syndrome type 1 of left lower extremity - ICD9: 337.22, ICD10: G90.522 (primary diagnosis) The OARRS report has been reviewed and is consistent with the patients medical history and medication intake. The patient underwent a random drug screen at today's office visit. He will continue with Nucynta, duloxetine, terazosin, omeprazole, eszopiclone, Movantik, and MiraLAX. Stop the sildenafil and start tadalafil 10 mg once every 24 hours as needed before activity. Patient was encouraged to increase fluid and fiber intake. He will continue using his spinal cord stimulator. Call Maggy if you need to have this reprogrammed [phone]. He will continue with core strengthening and range of motion exercises. Follow-up in office in 6 weeks time. We will continue to work on getting a power wheelchair to assist him when he has to walk longer distances. - TAPENTADOL 100 MG TABLET (Two stable chronic illnesses/prescription d (more content not included)... [facility] 10-05-2023 Instructions Estela Day PA-C - 10/05/2023 8:08 AM EST The OARRS report has been reviewed and is consistent with the patients medical history and medication intake. The patient underwent a random drug screen at today's office visit. He will continue with Nucynta, duloxetine, terazosin, omeprazole, eszopiclone, Movantik, and MiraLAX. Start sildenafil 50 mg one .5 - 4 hours before activity. Patient was encouraged to increase fluid and fiber intake. He will continue using his spinal cord stimulator. Call Maggy if you need to have this reprogrammed [phone]. He will continue with core strengthening and range of motion exercises. Follow-up in office in 6 weeks time. We will continue to work on getting a power wheelchair to assist him when he has to walk longer distances. I discussed the patient with Dr. Hernandez who agrees with my assessment and plan. All of the above is to improve functionality and quality of life. No evidence of drug abuse or diversion is seen at this time. documented in this encounter [facility] 10-05-2023 Note HNO ID: [id number] Author: Estela Day PA-C Service: ? Author Type: Physician Freelance Designer Type: Progress Notes Filed: 10/05/2023 8:25 AM Note Text: This note was created using Q-Senseiriter. Subjective Cong Harrison is a 58 year old male. The patient primarily being seen for left leg pain-catholic health Patient was last seen on: 08/24/23 At that time, the treatment plan was: see notes Current Meds: Nucynta am/ Cymbalta am/ Prilosec am/ Hytrin last pm/ Movantik am Efficacy: helpful Side effects: constipation, ED TENS unit: SCS How often used: 23/05 Benefit: helpful Physical Therapy: Last UDS: 10/05/23 Last injection: OARRS reviewed At the present time, the patient reports benefit with his present analgesic therapy. He uses movantik for his constipation. He has been having issues with ED and believes this is related to the medication. Since his previous visit, he denies any hospitalizations or ER visits. He states that the spinal cord stimulator helps and covers his areas of pain. He had a wheelchair evaluation done last week regarding getting a power wheelchair to help him with getting around longer distances. INTAKE PAIN ASSESSMENT 08/24/2023 10/05/2023 Are you having pain associated with your visit today? Yes, Provider notified Yes, Provider notified Pain Scales Verbal (Numeric Rating or Visual Analog Scale) Verbal (Numeric Rating or Visual Analog Scale) Pain Level 7 7 Pain Location Leg-Left Leg-Left Description Stabbing;Numbness;Tingling Burning;Aching;Stabbing Duration Amount of Time - - Duration Units - - Frequency Continuous Continuous Intervention/Comfort measure Medication;Relaxation;Spinal Cord Stimulator Medication;Relaxation;Spinal Cord Stimulator Comments - - OPIOID RISK TOOL Family History of Substance Abuse None 0 Personal History of Substance Abuse None 0 Age ([place] if 16-45) No 0 History of Preadolescent Sexual Abuse No 0 Psychological Disease None 0 TOTAL 0 Total Score Risk Category Low Risk 0 - 3 Moderate Risk 4 - 7 High Risk > or = 8 HPI PAST MEDICAL HISTORY Diagnosis Date Amputated left leg (HCC) 2003 GERD (gastroesophageal reflux disease) PAST SURGICAL HISTORY Procedure Laterality Date ARTHROPLASTY HEMIARTHROPLASTY total knee ORTHOPEDICS SURGERY HX N/A 20 srg on left leg PRQ IMPLTJ NSTIM ELECTRODE ARRAY EPIDURAL SCS WRIST SURGERY HX right Social History Tobacco Use Smoking status: Never Smokeless tobacco: Never Substance Use Topics Alcohol use: Not Currently Drug use: Never Review of Systems Constitutional: Negative for fever and unexpected weight change. Gastrointestinal: Positive for constipation. Musculoskeletal: + back pain, joint pain/swelling, numbness, tingling, muscle cramps/weakness, stiffness, arthritis, sciatica, restless legs, leg pain at night and leg pain with exertion. Objective BP 120/77 (BP Site: Left Arm, BP Position: Sitting, BP Cuff Size: Large Adult) Pulse 120 Temp 36.2 ?C (97.2 ?F) (Temporal) Resp 18 SpO2 98% Physical Exam Vitals and nursing note reviewed. Constitutional: Appearance: Normal appearance. He is well-developed and well-groomed. He is obese. HENT: Head: Normocephalic and atraumatic. Right Ear: Hearing normal. Left Ear: Hearing normal. Eyes: Conjunctiva/sclera: Conjunctivae normal. Comments: Wearing glasses Musculoskeletal: Comments: He walks with a limp but is not using any assistive devices. The patient has tenderness to palpation in the thoracic and lumbar region with spasms noted in the paraspinal muscles. There is allodynia and hyperpathia noted in the BLE, right > left. Strength is 5/5 throughout. SLR is negative. He has tenderness to palpation in his right knee with crepitus noted. There is decreased hair growth and a reddish discoloration noted in the distal RLE. He has a prosthetic device noted in the distal LLE. There is allodynia noted in the left hand. Neurological: Mental Status: He is alert and oriented to person, place, and time. Psychiatric: Attention and Perception: Attention and perception normal. Mood and Affect: Mood and affect normal. Speech: Speech normal. Behavior: Behavior normal. Behavior is cooperative. Thought Content: Thought content normal. Judgment: Judgment normal. Assessment and Plan ASSESSMENT/PLAN: 1. Complex regional pain syndrome type 1 of left lower extremity - ICD9: 337.22, ICD10: G90.522 (primary diagnosis) The OARRS report has been reviewed and is consistent with the patients medical history and medication intake. The patient underwent a random drug screen at today's office visit. He will continue with Nucynta, duloxetine, terazosin, omeprazole, eszopiclone, Movantik, and MiraLAX. Patient was encouraged to increase fluid and fiber intake. He will continue using his spinal cord stimulator. Call Maggy if you need to have this reprogrammed [phone]. He w (more content not included)... [facility] 10-05-2023 History of Presen t illness Narrative This note was created using Q-Senseiriter. Subjective Cong Harrison is a 58 year old male. The patient primarily being seen for left leg pain-catholic health Patient was last seen on: 08/24/23 At that time, the treatment plan was: see notes Current Meds: Nucynta am/ Cymbalta am/ Prilosec am/ Hytrin last pm/ Movantik am Efficacy: helpful Side effects: constipation, ED TENS unit: SCS How often used: 23/05 Benefit: helpful Physical Therapy: Last UDS: 10/05/23 Last injection: OARRS reviewed At the present time, the patient reports benefit with his present analgesic therapy. He uses movantik for his constipation. He has been having issues with ED and believes this is related to the medication. Since his previous visit, he denies any hospitalizations or ER visits. He states that the spinal cord stimulator helps and covers his areas of pain. He had a wheelchair evaluation done last week regarding getting a power wheelchair to help him with getting around longer distances. INTAKE PAIN ASSESSMENT 08/24/2023 10/05/2023 Are you having pain associated with your visit today? Yes, Provider notified Yes, Provider notified Pain Scales Verbal (Numeric Rating or Visual Analog Scale) Verbal (Numeric Rating or Visual Analog Scale) Pain Level 7 7 Pain Location Leg-Left Leg-Left Description Stabbing;Numbness;Tingling Burning;Aching;Stabbing Duration Amount of Time - - Duration Units - - Frequency Continuous Continuous Intervention/Comfort measure Medication;Relaxation;Spinal Cord Stimulator Medication;Relaxation;Spinal Cord Stimulator Comments - - OPIOID RISK TOOL Family History of Substance Abuse None 0 Personal History of Substance Abuse None 0 Age ([place] if 16-45) No 0 History of Preadolescent Sexual Abuse No 0 Psychological Disease None 0 TOTAL 0 Total Score Risk Category Low Risk 0 - 3 Moderate Risk 4 - 7 High Risk > or = 8 HPI PAST MEDICAL HISTORY Diagnosis Date Amputated left leg (HCC) 2003 GERD (gastroesophageal reflux disease) PAST SURGICAL HISTORY Procedure Laterality Date ARTHROPLASTY HEMIARTHROPLASTY total knee ORTHOPEDICS SURGERY HX N/A 20 srg on left leg PRQ IMPLTJ NSTIM ELECTRODE ARRAY EPIDURAL SCS WRIST SURGERY HX right Social History Tobacco Use Smoking status: Never Smokeless tobacco: Never Substance Use Topics Alcohol use: Not Currently Drug use: Never Review of Systems Constitutional: Negative for fever and unexpected weight change. Gastrointestinal: Positive for constipation. Musculoskeletal: + back pain, joint pain/swelling, numbness, tingling, muscle cramps/weakness, stiffness, arthritis, sciatica, restless legs, leg pain at night and leg pain with exertion. Objective BP 120/77 (BP Site: Left Arm, BP Position: Sitting, BP Cuff Size: Large Adult) Pulse 120 Temp 36.2 C (97.2 F) (Temporal) Resp 18 SpO2 98% Physical Exam Vitals and nursing note reviewed. Constitutional: Appearance: Normal appearance. He is well-developed and well-groomed. He is obese. HENT: Head: Normocephalic and atraumatic. Right Ear: Hearing normal. Left Ear: Hearing normal. Eyes: Conjunctiva/sclera: Conjunctivae normal. Comments: Wearing glasses Musculoskeletal: Comments: He walks with a limp but is not using any assistive devices. The patient has tenderness to palpation in the thoracic and lumbar region with spasms noted in the paraspinal muscles. There is allodynia and hyperpathia noted in the BLE, right > left. Strength is 5/5 throughout. SLR is negative. He has tenderness to palpation in his right knee with crepitus noted. There is decreased hair growth and a reddish discoloration noted in the distal RLE. He has a prosthetic device noted in the distal LLE. There is allodynia noted in the left hand. Neurological: Mental Status: He is alert and oriented to person, place, and time. Psychiatric: Attention and Perception: Attention and perception normal. Mood and Affect: Mood and affect normal. Speech: Speech normal. Behavior: Behavior normal. Behavior is cooperative. Thought Content: Thought content normal. Judgment: Judgment normal. Assessment and Plan ASSESSMENT/PLAN: 1. Complex regional pain syndrome type 1 of left lower extremity - ICD9: 337.22, ICD10: G90.522 (primary diagnosis) The OARRS report has been reviewed and is consistent with the patients medical history and medication intake. The patient underwent a random drug screen at today's office visit. He will continue with Nucynta, duloxetine, terazosin, omeprazole, eszopiclone, Movantik, and MiraLAX. Patient was encouraged to increase fluid and fiber intake. He will continue using his spinal cord stimulator. Call Maggy if you need to have this reprogrammed [phone]. He will continue with core strengthening and range of motion exercises. Follow-up in office in 6 weeks time. We will continue to work on getting a power wheelchair to assist him when he has to walk longer distances. - TOXASSURE FLEX 23, URINE 2. Complex regional pain syndrome type 1 of right lower extremity - ICD9: 337.22, ICD10: G90.521 - TOXASSURE FLEX 23, URINE 3. Osteoarthritis of right knee, unspecified osteoarthritis type - C - ICD9: 715.96, ICD10: M17.11 4. Psychogenic pain - [facility] - ICD9: 307.80, ICD10: F45.42 Estela Day PA-C documented in this encounter [facility] 09-26-2023 Miscellaneous Notes The following approved medication requests have been transmitted electronically. Requested Prescriptions Pending Prescriptions Disp Refills tapentadol (NUCYNTA) 100 mg tab 120 tablet 0 Sig: Take 1 tablet by mouth every 6 hours as needed for up to 30 days. Estela Day PA-C Patient phones requesting refills as follows: Requested Prescriptions Pending Prescriptions Disp Refills tapentadol (NUCYNTA) 100 mg tab 120 tablet 0 Sig: Take 1 tablet by mouth every 6 hours as needed for up to 30 days. Norma Sharma RN documented in this encounter [facility] 09-20-2023 Miscellaneous Notes Addended by: ESTELA DAY on: 09/20/2023 12:41 PM Modules accepted: Orders Call was received from [facility] that they need an order for PT for the wheelchair evaluation, not OT. The order was changed and faxed to [phone]. Order with approval was faxed to [facility] per pt request, 09/16/23 @ 9019. Pt informed. Noted, and signed. Process for [facility] coverage of powerchair request started and per [facility], needs a OT Eval 1st before request can be made for powerchair. Also stated [facility] will decide on powerchair company once request is made. Explained to pt who requested OT Eval be done at [facility] (fax for order [phone]). Just needs order signed. documented in this encounter [facility] 07-19-2023 Miscellaneous Notes The following approved medication requests have been transmitted electronically. Requested Prescriptions Pending Prescriptions Disp Refills terazosin (HYTRIN) 1 mg capsule 90 capsule 1 Sig: Take 1 capsule by mouth once daily. Estela Day PA-C Patient phones requesting refills as follows: Requested Prescriptions Pending Prescriptions Disp Refills terazosin (HYTRIN) 1 mg capsule 90 capsule 1 Sig: Take 1 capsule by mouth once daily. Please review and advise. Ashley Stratton RN documented in this encounter [facility] 07-13-2023 Instructions Estela Day PA-C - 07/13/2023 8:34 AM EDT The OARRS report has been reviewed and is consistent with the patients medical history and medication intake. He will continue with Nucynta, duloxetine, terazosin, omeprazole, eszopiclone, Movantik, and MiraLAX. Patient was encouraged to increase fluid and fiber intake. He will continue using his spinal cord stimulator. Call Maggy if you need to have this reprogrammed [phone]. He will continue with core strengthening and range of motion exercises. Follow-up in office in 6 weeks time. Find out where you can go and what the script needs to say for a power chair to use when he goes longer distances outdoors. We will submit a C-9 for this. I discussed the patient with Dr. Hernandez who agrees with my assessment and plan. All of the above is to improve functionality and quality of life. No evidence of drug abuse or diversion is seen at this time. documented in this encounter [facility] 07-13-2023 History of Presen t illness Narrative This note was created using Q-Senseiriter. Subjective Cong Harrison is a 58 year old male. The patient primarily being seen for left leg pain-[facility] Patient was last seen on: 06/01/23 At that time, the treatment plan was: see notes Current Meds: Nucynta am/ Cymbalta am/ Prilosec am/ Hytrin last pm/ Movantik am Efficacy: helpful Side effects: constipation TENS unit: SCS How often used: 23/05 Benefit: helpful Physical Therapy: Last UDS: 03/09/23 Last injection: OARRS reviewed At the present time, the patient reports benefit with his present analgesic therapy. He is using movantik for his constipation. Since his previous visit, he denies any hospitalizations or ER visits. He states that the spinal cord stimulator helps and covers his areas of pain. INTAKE PAIN ASSESSMENT 06/01/2023 07/13/2023 Are you having pain associated with your visit today? Yes, Provider notified Yes, Provider notified Pain Scales Verbal (Numeric Rating or Visual Analog Scale) Verbal (Numeric Rating or Visual Analog Scale) Pain Level 7 7 Pain Location Leg-Left Leg-Left Description Aching;Numbness;Tingling Aching;Dull;Numbness;Sharp;Burni ng Duration Amount of Time - - Duration Units - - Frequency Continuous Continuous Intervention/Comfort measure Medication;Relaxation;Spinal Cord Stimulator Medication;Relaxation;Spinal Cord Stimulator Comments - - HPI PAST MEDICAL HISTORY Diagnosis Date Amputated left leg (HCC) 2003 GERD (gastroesophageal reflux disease) PAST SURGICAL HISTORY Procedure Laterality Date ARTHROPLASTY HEMIARTHROPLASTY total knee ORTHOPEDICS SURGERY HX N/A 20 srg on left leg PRQ IMPLTJ NSTIM ELECTRODE ARRAY EPIDURAL SCS WRIST SURGERY HX right Social History Tobacco Use Smoking status: Never Smokeless tobacco: Never Substance Use Topics Alcohol use: Not Currently Drug use: Never Review of Systems Constitutional: Negative for fever and unexpected weight change. Gastrointestinal: Positive for constipation. Musculoskeletal: + back pain, joint pain/swelling, numbness, tingling, muscle cramps/weakness, stiffness, arthritis, sciatica, restless legs, leg pain at night and leg pain with exertion. Objective BP 114/79 (BP Site: Right Arm, BP Position: Sitting, BP Cuff Size: Large Adult) Pulse 108 Temp 36.6 C (97.8 F) (Temporal) Resp 18 SpO2 98% Physical Exam Vitals and nursing note reviewed. Constitutional: Appearance: Normal appearance. He is well-developed and well-groomed. He is obese. HENT: Head: Normocephalic and atraumatic. Right Ear: Hearing normal. Left Ear: Hearing normal. Eyes: Conjunctiva/sclera: Conjunctivae normal. Comments: Wearing glasses Musculoskeletal: Comments: He walks with a limp but is not using any assistive devices. The patient has tenderness to palpation in the thoracic and lumbar region with spasms noted in the paraspinal muscles. There is allodynia and hyperpathia noted in the BLE, right > left. Strength is 5/5 throughout. SLR is negative. He has tenderness to palpation in his right knee with crepitus noted. There is decreased hair growth and a reddish discoloration noted in the distal RLE. He has a prosthetic device noted in the distal LLE. There is allodynia noted in the left hand. Neurological: Mental Status: He is alert and oriented to person, place, and time. Psychiatric: Attention and Perception: Attention and perception normal. Mood and Affect: Mood and affect normal. Speech: Speech normal. Behavior: Behavior normal. Behavior is cooperative. Thought Content: Thought content normal. Judgment: Judgment normal. Assessment and Plan ASSESSMENT/PLAN: 1. Complex regional pain syndrome type 1 of left lower extremity - ICD9: 337.22, ICD10: G90.522 (primary diagnosis) The OARRS report has been reviewed and is consistent with the patients medical history and medication intake. He will continue with Nucynta, duloxetine, terazosin, omeprazole, eszopiclone, Movantik, and MiraLAX. Patient was encouraged to increase fluid and fiber intake. He will continue using his spinal cord stimulator. Call Maggy if you need to have this reprogrammed [phone]. He will continue with core strengthening and range of motion exercises. Follow-up in office in 6 weeks time. Find out where you can go and what the script needs to say for a power chair to use when he goes longer distances outdoors. We will submit a C-9 for this. 2. Complex regional pain syndrome type 1 of right lower extremity - [facility] - ICD9: 337.22, ICD10: G90.521 3. Osteoarthritis of right knee, unspecified osteoarthritis type - [facility] - ICD9: 715.96, ICD10: M17.11 4. Psychogenic pain - C - ICD9: 307.80, ICD10: F45.42 Estela Day PA-C documented in this encounter [facility] 06-01-2023 Instructions Estela Day PA-C - 06/01/2023 8:17 AM EDT The OARRS report has been reviewed and is consistent with the patients medical history and medication intake. He will continue with Nucynta, duloxetine, terazosin, omeprazole, eszopiclone, Movantik, and MiraLAX. Patient was encouraged to increase fluid and fiber intake. He will continue using his spinal cord stimulator. Call Maggy if you need to have this reprogrammed [phone]. He will continue with core strengthening and range of motion exercises. Follow-up in office in 6 weeks time. I discussed the patient with Dr. Hernandez who agrees with my assessment and plan. All of the above is to improve functionality and quality of life. No evidence of drug abuse or diversion is seen at this time. documented in this encounter [facility] 06-01-2023 History of Presen t illness Narrative This note was created using BearTailter. Subjective Cong Harrison is a 58 year old male. The patient primarily being seen for left leg pain-c[facility] health Patient was last seen on: 04/20/23 At that time, the treatment plan was: see notes Current Meds: Nucynta am/ Cymbalta am/ Prilosec am/ Hytrin last pm/ Movantik am Efficacy: helpful Side effects: constipation TENS unit: SCS How often used: 23/05 Benefit: helpful Physical Therapy: Last UDS: 03/09/23 Last injection: OARRS reviewed At the present time, the patient reports benefit with his present analgesic therapy. He is using movantik, and miralax as needed for his constipation. Since his previous visit, he denies any hospitalizations or ER visits. He states that the spinal cord stimulator helps and covers his areas of pain. INTAKE PAIN ASSESSMENT 04/20/2023 06/01/2023 Are you having pain associated with your visit today? Yes, Provider notified Yes, Provider notified Pain Scales Verbal (Numeric Rating or Visual Analog Scale) Verbal (Numeric Rating or Visual Analog Scale) Pain Level 9 7 Pain Location Leg-Left Leg-Left Description Aching;Dull;Sharp;Stabbing;Burni ng Aching;Numbness;Tingling Duration Amount of Time - - Duration Units Years - Frequency Continuous Continuous Intervention/Comfort measure Medication Medication;Relaxation;Spinal Cord Stimulator Comments - - HPI PAST MEDICAL HISTORY Diagnosis Date Amputated left leg (HCC) 2003 GERD (gastroesophageal reflux disease) PAST SURGICAL HISTORY Procedure Laterality Date ARTHROPLASTY HEMIARTHROPLASTY total knee ORTHOPEDICS SURGERY HX N/A 20 srg on left leg PRQ IMPLTJ NSTIM ELECTRODE ARRAY EPIDURAL SCS WRIST SURGERY HX right Social History Tobacco Use Smoking status: Never Smokeless tobacco: Never Substance Use Topics Alcohol use: Not Currently Drug use: Never Review of Systems Constitutional: Negative for fever and unexpected weight change. Gastrointestinal: Positive for constipation. Musculoskeletal: + back pain, joint pain/swelling, numbness, tingling, muscle cramps/weakness, stiffness, arthritis, sciatica, restless legs, leg pain at night and leg pain with exertion. Objective BP 121/74 (BP Site: Left Arm, BP Position: Sitting, BP Cuff Size: Large Adult) Pulse 90 Temp (!) 35.9 C (96.6 F) (Temporal) Resp 18 SpO2 98% Physical Exam Vitals and nursing note reviewed. Constitutional: Appearance: Normal appearance. He is well-developed and well-groomed. He is obese. HENT: Head: Normocephalic and atraumatic. Right Ear: Hearing normal. Left Ear: Hearing normal. Eyes: Conjunctiva/sclera: Conjunctivae normal. Comments: Wearing glasses Musculoskeletal: Comments: He walks with a limp but is not using any assistive devices. The patient has tenderness to palpation in the thoracic and lumbar region with spasms noted in the paraspinal muscles. There is allodynia and hyperpathia noted in the BLE, right > left. Strength is 5/5 throughout. SLR is negative. He has tenderness to palpation in his right knee with crepitus noted. There is decreased hair growth and a reddish discoloration noted in the distal RLE. He has a prosthetic device noted in the distal LLE. There is allodynia noted in the left hand. Neurological: Mental Status: He is alert and oriented to person, place, and time. Psychiatric: Attention and Perception: Attention and perception normal. Mood and Affect: Mood and affect normal. Speech: Speech normal. Behavior: Behavior normal. Behavior is cooperative. Thought Content: Thought content normal. Judgment: Judgment normal. Assessment and Plan ASSESSMENT/PLAN: 1. Complex regional pain syndrome type 1 of left lower extremity - [facility] - ICD9: 337.22, ICD10: G90.522 (primary diagnosis) The OARRS report has been reviewed and is consistent with the patients medical history and medication intake. He will continue with Nucynta, duloxetine, terazosin, omeprazole, eszopiclone, Movantik, and MiraLAX. Patient was encouraged to increase fluid and fiber intake. He will continue using his spinal cord stimulator. Call Maggy if you need to have this reprogrammed [phone]. He will continue with core strengthening and range of motion exercises. Follow-up in office in 6 weeks time. 2. Complex regional pain syndrome type 1 of right lower extremity - [facility] - ICD9: 337.22, ICD10: G90.521 3. Osteoarthritis of right knee, unspecified osteoarthritis type - [facility] - ICD9: 715.96, ICD10: M17.11 4. Psychogenic pain - [facility] - ICD9: 307.80, ICD10: F45.42 Estela Day PA-C documented in this encounter [facility] 05-30-2023 Miscellaneous Notes The following approved medication requests have been transmitted electronically. Requested Prescriptions Pending Prescriptions Disp Refills tapentadol (NUCYNTA) 100 mg tab 120 tablet 0 Sig: Take 1 tablet by mouth every 6 hours as needed for up to 30 days. Estela Day PA-C Patient phones requesting refills as follows: Requested Prescriptions Pending Prescriptions Disp Refills tapentadol (NUCYNTA) 100 mg tab 120 tablet 0 Sig: Take 1 tablet by mouth every 6 hours as needed for up to 30 days. Norma Sharma, RN documented in this encounter [facility] 04-22-2023 Miscellaneous Notes The following approved medication requests have been transmitted electronically. Requested Prescriptions Pending Prescriptions Disp Refills tapentadol (NUCYNTA) 100 mg tab 120 tablet 0 Sig: Take 1 tablet by mouth every 6 hours as needed for up to 30 days. Estela Day PA-C Med should be at [facility] documented in this encounter [facility] 04-21-2023 Miscellaneous Notes Pt informed methadone should not be filled, switched back to nucynta IR documented in this encounter [facility] 04-21-2023 Miscellaneous Notes The following approved medication requests have been transmitted electronically. Signed Prescriptions: Disp Refills tapentadol (NUCYNTA) 100 mg tab 120 ta*0 Sig: Take 1 tablet by mouth every 6 hours as needed for up to 30 days. Authorizing Provider: ESTELA DAY PA-C Spoke with pt and informed that new nucynta order would be placed - will go back to previous dosing, and that [facility] said the nucynta ER denial would need appealed with the tree doctor, stated ok. Go back to nucynta 100 mg q 6 VM received stating I need a PA for my methadone. Explained per EKG, is now contraindicated (prolonged Q wave), cannot take this. Called [facility] pharmacy and explained this and 4 other preferred medications were tried and failed you can try the tramadol er or hysingla, per Pharmacy. Explained tramadol would not be strong enough and with Hysingla, per [facility] Pharmacist, the maufacturer only has a limited supply, is getting harder to get. Discussed this with [facility] who stated we are seeing this too, we need proof that he was on norco (this was over 10 years ago, records no longer available, this should be in their billing records) and norco didn't help him in the past, the ER would most likely not help either, who then stated he can appeal the nucynta ER with his tree doctor, the nucynta IR is still available. What should he be on next? documented in this encounter [facility] 04-20-2023 Instructions Dawit Hernandez MD - 04/20/2023 8:54 AM EDT Patient will be switched to methadone 5 mg twice daily. We are awaiting his baseline EKG report. He understands that we may need to make adjustment with methadone dosage as needed. He will continue with duloxetine, terazosin, omeprazole, eszopiclone, Movantik, and MiraLAX. Patient was encouraged to increase fluid and fiber intake. He will continue using his spinal cord stimulator. He will continue with core strengthening and range of motion exercises. Follow-up in office in 6 weeks time. documented in this encounter [facility] 04-20-2023 History of Presen t illness Narrative This note was created using Q-Senseiriter. Subjective Cong Harrison is a 58 year old male. The patient primarily being seen for left leg pain - [facility] Patient was last seen on: 03/09/23 At that time, the treatment plan was: see notes Current Meds: Nucynta - last dose 4 days ago - [facility] wants med switched to Methadone - he had EKG done this am, Cymbalta - this am, Prilosec - this am, Hytrin - last pm, Movantik - this am Efficacy: help Side effects: constipation - relieved with Movantik and Miralax TENS unit: has SCS - has increased since didn't have Nucynta How often used: Benefit: helps Physical Therapy: years ago Last UDS: 03/09/23 Last injection: none OARRS reviewed INTAKE PAIN ASSESSMENT 03/09/2023 04/20/2023 Are you having pain associated with your visit today? Yes, Provider notified Yes, Provider notified Pain Scales Verbal (Numeric Rating or Visual Analog Scale) Verbal (Numeric Rating or Visual Analog Scale) Pain Level 7 9 Pain Location Leg-Left Leg-Left Description Aching;Dull;Stabbing;Numbness;Bu rning Aching;Dull;Sharp;Stabbing;Burni ng Duration Amount of Time - - Duration Units Years Years Frequency Continuous Continuous Intervention/Comfort measure Medication Medication Comments - - HPI Patient is getting adequate relief from the present regimen and denies any side effect from it except for constipation that is relieved by Movantik and MiraLAX. This has improved the patient s level of functionality and has been able to perform activities of daily living. The patient exhibits no aberrant behavior. The PDMP report and last UDS are both consistent with prescribed medications and are unremarkable. Worker's Comp. would no longer pay for Nucynta. Review of Systems Constitutional: Negative for fever and unexpected weight change. Gastrointestinal: Positive for constipation. Musculoskeletal: +back pain, joint pain/swelling, numbness, tingling, muscle cramps/weakness, stiffness, arthritis, sciatica, restless legs, leg pain at night and leg pain with exertion. Objective BP 104/69 (BP Site: Left Arm, BP Position: Sitting, BP Cuff Size: Large Adult) Pulse 98 Temp 36.2 C (97.1 F) (Temporal) Ht 170.2 cm (5' 7) Wt 85.3 kg (188 lb) SpO2 98% BMI 29.44 kg/m Physical Exam Vitals and nursing note reviewed. Constitutional: General: He is not in acute distress. Appearance: Normal appearance. He is well-developed and well-groomed. HENT: Head: Normocephalic and atraumatic. Right Ear: Hearing and external ear normal. Left Ear: Hearing and external ear normal. Nose: Nose normal. Eyes: General: No scleral icterus. Extraocular Movements: Extraocular movements intact. Conjunctiva/sclera: Conjunctivae normal. Comments: Wearing glasses Musculoskeletal: Comments: He walks with a limp. The patient has tenderness to palpation in the thoracic and lumbar region with spasms noted in the paraspinal muscles. There is allodynia and hyperpathia noted in the BLE, right > left. Strength is 5/5 throughout. SLR is negative. He has tenderness to palpation in his right knee with crepitus noted. There is decreased hair growth and a reddish discoloration noted in the distal RLE. He has a prosthetic device on his LLE. There is allodynia noted in the left hand. Skin: General: Skin is warm and dry. Neurological: Mental Status: He is alert and oriented to person, place, and time. Psychiatric: Attention and Perception: Attention and perception normal. Mood and Affect: Mood and affect normal. Speech: Speech normal. Behavior: Behavior normal. Behavior is cooperative. Thought Content: Thought content normal. Judgment: Judgment normal. Assessment and Plan ASSESSMENT/PLAN: 1. Complex regional pain syndrome type 1 of left lower extremity - [facility] - ICD9: 337.22, ICD10: G90.522 (primary diagnosis) 2. Osteoarthritis of right knee, unspecified osteoarthritis type - [facility] - ICD9: 715.96, ICD10: M17.11 3. Psychogenic pain - [facility] - ICD9: 307.80, ICD10: F45.42 PLAN: Patient will be switched to methadone 5 mg twice daily. We are awaiting his baseline EKG report. He understands that we may need to make adjustment with methadone dosage as needed. He will continue with duloxetine, terazosin, omeprazole, eszopiclone, Movantik, and MiraLAX. Patient was encouraged to increase fluid and fiber intake. He will continue using his spinal cord stimulator. He will continue with core strengthening and range of motion exercises. Follow-up in office in 6 weeks time. 30 minutes spent for chronic pain management distinct from evaluation and management Two or more stable chronic illness and prescription medication management This document was transcribed using a voice recognition software and may contain minor errors. Dawit Hernandez MD documented in this encounter [facility] 04-19-2023 Miscellaneous Notes Pt went to [facility] to have EKG done but EKG person not there after 2pm. Suggested having it done at [facility] in the am when here for FU, stated he would do that. Spoke with pt and explained medication switch to methadone, and that EKG is needed 1st (requesting to have done @ [facility]), will send order over today, to have done 1st before starting medication. Stated I am in a lot of pain. C9 to be submitted for EKG also. May try methadone 5 mg twice daily after obtaining baseline EKG We are only able to help him as much as his insurance would allow us to Nucynta ER required a PA, sent 04/14, denied (for tried and failed medications needed), resent 04/15, no reply until today ([facility] closed 04/18), pt has been out of this med since Sat.. [facility] is still denying it saying he has to try Tramadol ER or Hysingla (after it was explained these don't have neurolytic qualities, has been on nucynta er for 5 years, tramadol or hysingla would not be strong enough. Has already tried and failed ms contin, opana, fentanyl patch). I called his pharamcy, stated Tramadol ER 100 are on backorder in general, hard to get, has 200mg in stock, 300mg would need ordered. Hysingla is not in stock (would need a day to get in), and the customer professional has a very low inventory of the 100 and 120mg). What can he be switched to? documented in this encounter [facility] 04-15-2023 Miscellaneous Notes The following approved medication requests have been transmitted electronically. Requested Prescriptions Pending Prescriptions Disp Refills tapentadol (NUCYNTA ER) 250 mg tab ER 12 hr 60 tablet 0 Sig: Take 1 tablet by mouth twice daily for 30 days. Estela Day PA-C Patient phones requesting refills as follows: Requested Prescriptions Pending Prescriptions Disp Refills tapentadol (NUCYNTA ER) 250 mg tab ER 12 hr 60 tablet 0 Sig: Take 1 tablet by mouth twice daily for 30 days. Norma Sharma RN documented in this encounter [facility] 03-10-2023 Miscellaneous Notes The following approved medication requests have been transmitted electronically. Requested Prescriptions Pending Prescriptions Disp Refills naloxone 4 mg/actuation nasal spray (NARCAN) 1 Each 0 Sig: Use 1 spray in one nostril as needed for overdose. May repeat every 2 to 3 min in alternating nostrils until medical assistance is available Estela Day PA-C Sent to [facility] pharmacy Patient phones requesting refills as follows: Requested Prescriptions Pending Prescriptions Disp Refills naloxone 4 mg/actuation nasal spray (NARCAN) 1 Each 0 Sig: Use 1 spray in one nostril as needed for overdose. May repeat every 2 to 3 min in alternating nostrils until medical assistance is available Please review and advise. Ashley Stratton RN documented in this encounter [facility] 03-09-2023 Instructions Dawit Hernandez MD - 03/09/2023 8:24 AM EDT Repeat urine drug screen this visit Nucynta will be increased to Nucynta ER to 50 mg every 12 hours on his next refill. Patient understands that this is the maximal dose of Nucynta. He will continue with duloxetine, terazosin, omeprazole, eszopiclone, and Movantik. He will continue using his spinal cord stimulator. Continue with core strengthening and range of motion exercises. Weight reduction. Follow-up in office in 6 weeks time. documented in this encounter [facility] 03-09-2023 History of Presen t illness Narrative This note was created using [employer]ote[employer]. Subjective Cong Harrison is a 58 year old male. The patient primarily being seen for left leg pain - [facility] Patient was last seen on: 01/26/23 At that time, the treatment plan was: see notes Current Meds: Nucynta - last dose this am, Cymbalta - this am, Prilosec - this am, Hytrin - last pm, Movantik - this am Efficacy: help to a degree Side effects: constipation - relieved with Movantik and Miralax TENS unit: SCS - working well How often used: 23/05 Benefit: Physical Therapy: years ago Last UDS: 03/09/23 Last injection: non OARRS reviewed INTAKE PAIN ASSESSMENT 01/26/2023 03/09/2023 Are you having pain associated with your visit today? Yes, Provider notified Yes, Provider notified Pain Scales Verbal (Numeric Rating or Visual Analog Scale) Verbal (Numeric Rating or Visual Analog Scale) Pain Level 7 7 Pain Location Leg-Left Leg-Left Description Aching;Dull;Burning;Sharp;Stabbi ng Aching;Dull;Stabbing;Numbness;Bu rning Duration Amount of Time - - Duration Units Years Years Frequency Continuous Continuous Intervention/Comfort measure - Medication Comments nothing is helping pain - HPI Patient is not getting as much relief from the present regimen and denies any side effect from it except for constipation that is relieved by Movantik and MiraLAX. This has improved the patient s level of functionality and has been able to perform activities of daily living. The patient exhibits no aberrant behavior. The PDMP report and last UDS are both consistent with prescribed medications and are unremarkable. Patient had a spinal cord stimulator reprogrammed which has helped however he is still not getting as much relief as he wanted to. Review of Systems Constitutional: Negative for fever and unexpected weight change. Gastrointestinal: Positive for constipation. Musculoskeletal: +back pain, joint pain/swelling, numbness, tingling, muscle cramps/weakness, stiffness, arthritis, sciatica, restless legs, leg pain at night and leg pain with exertion. Objective BP 117/70 (BP Site: Left Arm, BP Position: Sitting, BP Cuff Size: Large Adult) Pulse 98 Temp 36.6 C (97.8 F) (Temporal) Resp 20 Ht 170.2 cm (5' 7) Wt 85.3 kg (188 lb) SpO2 99% BMI 29.44 kg/m Physical Exam Vitals and nursing note reviewed. Constitutional: General: He is not in acute distress. Appearance: Normal appearance. He is well-developed and well-groomed. He is obese. HENT: Head: Normocephalic and atraumatic. Right Ear: Hearing and external ear normal. Left Ear: Hearing and external ear normal. Nose: Nose normal. Eyes: General: No scleral icterus. Extraocular Movements: Extraocular movements intact. Conjunctiva/sclera: Conjunctivae normal. Comments: Wearing glasses Musculoskeletal: Comments: He walks with a limp. The patient has tenderness to palpation in the thoracic and lumbar region with spasms noted in the paraspinal muscles. There is allodynia and hyperpathia noted in the BLE, right > left. Strength is 5/5 throughout. SLR is negative. He has tenderness to palpation in his right knee with crepitus noted. There is decreased hair growth and a reddish discoloration noted in the distal RLE. He has a prosthetic device on his LLE. There is allodynia noted in the left hand. Skin: General: Skin is warm and dry. Neurological: Mental Status: He is alert and oriented to person, place, and time. Psychiatric: Attention and Perception: Attention and perception normal. Mood and Affect: Mood and affect normal. Speech: Speech normal. Behavior: Behavior normal. Behavior is cooperative. Thought Content: Thought content normal. Judgment: Judgment normal. Assessment and Plan ASSESSMENT/PLAN: 1. Complex regional pain syndrome type 1 of left lower extremity - [facility] - ICD9: 337.22, ICD10: G90.522 (primary diagnosis) 2. Osteoarthritis of right knee, unspecified osteoarthritis type - [facility] - ICD9: 715.96, ICD10: M17.11 3. Psychogenic pain - [facility] - ICD9: 307.80, ICD10: F45.42 PLAN: Repeat urine drug screen this visit Nucynta will be increased to Nucynta ER to 250 mg every 12 hours on his next refill. Patient understands that this is the maximal dose of Nucynta. He will continue with duloxetine, terazosin, omeprazole, eszopiclone, and Movantik. He will continue using his spinal cord stimulator. Continue with core strengthening and range of motion exercises. Weight reduction. Follow-up in office in 6 weeks time. 30 minutes spent for chronic pain management distinct from evaluation and management Two or more stable chronic illness and prescription medication management This document was transcribed using a voice recognition software and may contain minor errors. Dawit Hernandez MD documented in this encounter [facility] 02-21-2023 Miscellaneous Notes The following approved medication requests have been transmitted electronically. Requested Prescriptions Pending Prescriptions Disp Refills tapentadol (NUCYNTA) 100 mg tab 120 tablet 0 Sig: Take 1 tablet by mouth every 6 hours as needed for up to 30 days. MOVANTIK 25 mg tablet 30 tablet 3 Sig: Take 1 tablet by mouth once daily as needed. omeprazole (PRILOSEC) 40 mg capsule 60 capsule 3 Sig: Take 1 capsule by mouth twice daily. DULoxetine (CYMBALTA) 60 mg capsule 60 capsule 3 Sig: Take 1 capsule by mouth twice daily. Estela Day PA-C Patient phones requesting refills as follows: Requested Prescriptions Pending Prescriptions Disp Refills tapentadol (NUCYNTA) 100 mg tab 120 tablet 0 Sig: Take 1 tablet by mouth every 6 hours as needed for up to 30 days. MOVANTIK 25 mg tablet 30 tablet 3 Sig: Take 1 tablet by mouth once daily as needed. omeprazole (PRILOSEC) 40 mg capsule 60 capsule 3 Sig: Take 1 capsule by mouth twice daily. DULoxetine (CYMBALTA) 60 mg capsule 60 capsule 3 Sig: Take 1 capsule by mouth twice daily. Norma Sharma RN documented in this encounter [facility] 01-26-2023 Instructions Dawit Hernandez MD - 01/26/2023 8:24 AM EDT The patient will continue with Nucynta, Cymbalta, terazosin, omeprazole, Lunesta, and Movantik. He was encouraged to increase fluid and fiber intake. Continue with core strengthening and range of motion exercises. Weight reduction. We will arrange reprogramming with [employer] representative. He would like to have his spinal cord stimulator therapy optimized before we make any changes on his medications. Follow-up in office in 6 weeks time. documented in this encounter [facility] 01-26-2023 History of Presen t illness Narrative This note was created using Q-Senseiriter. Subjective Cong Harrison is a 58 year old male. The patient primarily being seen for left leg pain - [facility] Patient was last seen on: 12/14/22 At that time, the treatment plan was: see notes Current Meds: Nucynta - last dose this am, Cymbalta - this am, Prilosec - this am, Hytrin - last pm, Movantik - this am Efficacy: not really helping Side effects: TENS unit: has SCS - keeps shutting off - is meeting rep from [employer] here today How often used: Benefit: Physical Therapy: years ago Last UDS: 08/09/22 Last injection: none OARRS reviewed INTAKE PAIN ASSESSMENT 12/14/2022 01/26/2023 Are you having pain associated with your visit today? Yes, Provider notified Yes, Provider notified Pain Scales Verbal (Numeric Rating or Visual Analog Scale) Verbal (Numeric Rating or Visual Analog Scale) Pain Level 7 7 Pain Location Leg-Left Leg-Left Description Aching;Burning;Stabbing Aching;Dull;Burning;Sharp;Stabbi ng Duration Amount of Time - - Duration Units - Years Frequency Continuous Continuous Intervention/Comfort measure Medication;Other: See comment - Comments SCS nothing is helping pain HPI Patient is not getting as much relief from the present regimen and denies any side effect from it except for constipation. This has improved the patient s level of functionality and has been able to perform activities of daily living. The patient exhibits no aberrant behavior. The PDMP report and last UDS are both consistent with prescribed medications and are unremarkable. His spinal cord stimulator has been turning off on its own. He is supposed to meet [employer] automobile rental representative for reprogramming Review of Systems Constitutional: Negative for fever and unexpected weight change. Musculoskeletal: +back pain, joint pain/swelling, numbness, tingling, muscle cramps/weakness, stiffness, arthritis, sciatica, restless legs, leg pain at night and leg pain with exertion. Objective BP 121/68 (BP Site: Left Arm, BP Position: Sitting, BP Cuff Size: Large Adult) Pulse 116 Temp 36.2 C (97.2 F) (Temporal) Resp 20 Ht 170.2 cm (5' 7) Wt 89.4 kg (197 lb) SpO2 97% BMI 30.85 kg/m Physical Exam Vitals and nursing note reviewed. Constitutional: General: He is not in acute distress. Appearance: Normal appearance. He is well-developed and well-groomed. He is obese. HENT: Head: Normocephalic and atraumatic. Right Ear: Hearing and external ear normal. Left Ear: Hearing and external ear normal. Nose: Nose normal. Eyes: General: No scleral icterus. Extraocular Movements: Extraocular movements intact. Conjunctiva/sclera: Conjunctivae normal. Comments: Wearing glasses Musculoskeletal: Comments: He walks with a limp. The patient has tenderness to palpation in the thoracic and lumbar region with spasms noted in the paraspinal muscles. There is allodynia and hyperpathia noted in the BLE, right > left. Strength is 5/5 throughout. SLR is negative. He has tenderness to palpation in his right knee with crepitus noted. There is decreased hair growth and a reddish discoloration noted in the distal RLE. He has a prosthetic device on his LLE. There is allodynia noted in the left hand. Skin: General: Skin is warm and dry. Neurological: Mental Status: He is alert and oriented to person, place, and time. Psychiatric: Attention and Perception: Attention and perception normal. Mood and Affect: Mood and affect normal. Speech: Speech normal. Behavior: Behavior normal. Behavior is cooperative. Thought Content: Thought content normal. Judgment: Judgment normal. Assessment and Plan ASSESSMENT/PLAN: 1. Reflex sympathetic dystrophy of right leg - [facility] - ICD9: 337.22, ICD10: G90.521 (primary diagnosis) The patient will continue with Nucynta, Cymbalta, terazosin, omeprazole, Lunesta, and Movantik. He was encouraged to increase fluid and fiber intake. Continue with core strengthening and range of motion exercises. Weight reduction. We will arrange reprogramming with [employer] representative. He would like to have his spinal cord stimulator therapy optimized before we make any changes on his medications. Follow-up in office in 6 weeks time. 2. Complex regional pain syndrome type 1 of left lower extremity - [facility] - ICD9: 337.22, ICD10: G90.522 3. Osteoarthritis of right knee, unspecified osteoarthritis type - [facility] - ICD9: 715.96, ICD10: M17.11 31 minute visit Greater than two stable chronic illness and prescription medication management. This document was transcribed using a voice recognition software and may contain minor errors. Dawit Hernandez MD documented in this encounter [facility] 01-12-2023 Miscellaneous Notes The following approved medication requests have been transmitted electronically. Requested Prescriptions Pending Prescriptions Disp Refills terazosin (HYTRIN) 1 mg capsule 90 capsule 1 Sig: Take 1 capsule by mouth once daily. Estela Day PA-C Patient phones requesting refills as follows: Requested Prescriptions Pending Prescriptions Disp Refills terazosin (HYTRIN) 1 mg capsule 90 capsule 1 Sig: Take 1 capsule by mouth once daily. Please review and advise. Ashley Stratton RN documented in this encounter [facility] 12-21-2022 Miscellaneous Notes The following approved medication requests have been transmitted electronically. Requested Prescriptions Pending Prescriptions Disp Refills tapentadol (NUCYNTA) 100 mg tab 120 tablet 0 Sig: Take 1 tablet by mouth every 6 hours as needed for up to 30 days. Estela Day PA-C Patient phones requesting refills as follows: Requested Prescriptions Pending Prescriptions Disp Refills tapentadol (NUCYNTA) 100 mg tab 120 tablet 0 Sig: Take 1 tablet by mouth every 6 hours as needed for up to 30 days. Please review and advise. Ashley Stratton RN documented in this encounter [facility] 12-14-2022 Instructions Estela Day PA-C - 12/14/2022 8:23 AM EST The OARRS report has been reviewed and is consistent with the patients medical history and medication intake. Continue with the nucynta, cymbalta, hytrin, prilosec, movantik, and lunesta. Continue with the spinal cord stimulator as programmed. Patient was encouraged to increase fluid and fiber intake and to take over the counter stool softeners as needed for opioid-induced constipation. Continue with core strengthening and range of motion exercises FU in the office in [address] Hernandez. I discussed the patient with Dr. Hernandez who agrees with my assessment and plan. All of the above is to improve functionality and quality of life. No evidence of drug abuse or diversion is seen at this time. documented in this encounter [facility] 12-14-2022 History of Presen t illness Narrative This note was created using Q-Senseiriter. Subjective Cong Harrison is a 57 year old male. The patient primarily being seen for [facility] left leg pain Patient was last seen on: 11/02/22 At that time, the treatment plan was: see notes Current Meds: Nucynta last dose this am,Cymbalta last dose this am,Prilosec last dose this am,Hytrin last dose last pm, Movantik last dose this am Efficacy: Helps to a certain degree Side effects:constipation relieved with Miralex and Movantik TENS unit: SCS How often used: Benefit: Physical Therapy: Last UDS: 08/09/22 Last injection:none OARRS reviewed yes At the present time, the patient reports benefit with his present analgesic therapy. He uses movantik and miralax as needed for his constipation. Since his previous visit, he denies any hospitalizations or ER visits. He states that the spinal cord stimulator helps and covers his areas of pain. INTAKE PAIN ASSESSMENT 11/02/2022 12/14/2022 Are you having pain associated with your visit today? Yes, Provider notified Yes, Provider notified Pain Scales Verbal (Numeric Rating or Visual Analog Scale) Verbal (Numeric Rating or Visual Analog Scale) Pain Level 9 7 Pain Location Leg-Left Leg-Left Description Sharp;Stabbing;Burning;Aching Aching;Burning;Stabbing Duration Amount of Time - - Duration Units Years - Frequency Continuous Continuous Intervention/Comfort measure Medication Medication;Other: See comment Comments - SCS PAST MEDICAL HISTORY Diagnosis Date Amputated left leg (HCC) 2003 GERD (gastroesophageal reflux disease) PAST SURGICAL HISTORY Procedure Laterality Date ARTHROPLASTY HEMIARTHROPLASTY total knee ORTHOPEDICS SURGERY HX N/A 20 srg on left leg PRQ IMPLTJ NSTIM ELECTRODE ARRAY EPIDURAL SCS WRIST SURGERY HX right Social History Tobacco Use Smoking status: Never Smokeless tobacco: Never Substance Use Topics Alcohol use: Not Currently Drug use: Never HPI Review of Systems Objective BP 126/75 (BP Site: Left Arm, BP Position: Sitting, BP Cuff Size: Large Adult) Pulse (!) 128 Temp 36.1 C (97 F) Resp 20 Ht 170.2 cm (5' 7) Wt 89.8 kg (198 lb) SpO2 97% BMI 31.01 kg/m Physical Exam Assessment and Plan ASSESSMENT/PLAN: 1. Complex regional pain syndrome type 1 of left lower extremity - ICD9: 337.22, ICD10: G90.522 (primary diagnosis) The OARRS report has been reviewed and is consistent with the patients medical history and medication intake. Continue with the nucynta, cymbalta, hytrin, prilosec, movantik, and lunesta. Continue with the spinal cord stimulator as programmed. Patient was encouraged to increase fluid and fiber intake and to take over the counter stool softeners as needed for opioid-induced constipation. Continue with core strengthening and range of motion exercises FU in the office in [address] Hernandez. (Two stable chronic illnesses/prescription drug management) 2. Reflex sympathetic dystrophy of right leg - ICD9: 337.22, ICD10: G90.521 3. Osteoarthritis of right knee, unspecified osteoarthritis type - ICD9: 715.96, ICD10: M17.11 Estela Day PA-C documented in this encounter [facility] 11-02-2022 Instructions Estela Day PA-C - 11/02/2022 8:11 AM EST The OARRS report has been reviewed and is consistent with the patients medical history and medication intake. Continue with the nucynta, cymbalta, hytrin, prilosec, movantik, and lunesta. Continue with the spinal cord stimulator as programmed. Patient was encouraged to increase fluid and fiber intake and to take over the counter stool softeners as needed for opioid-induced constipation. Continue with core strengthening and range of motion exercises FU in the office in 6 weeks. I discussed the patient with Dr. Hernandez who agrees with my assessment and plan. All of the above is to improve functionality and quality of life. No evidence of drug abuse or diversion is seen at this time. documented in this encounter [facility] 11-02-2022 History of Presen t illness Narrative This note was created using NoteWriter. Subjective Cong E Harrison is a 57 year old male. The patient primarily being seen for left leg pain - [facility] Patient was last seen on: At that time, the treatment plan was: see notes Current Meds: Nucynta - last dose this am, Cymbalta - this anm Prilosec - this am, Hytrin - last pm, Movantik - this am Efficacy: help to a certain degree Side effects: constipation - relieved with Miralax and Movantik TENS unit: SCS How often used: Benefit: Physical Therapy: year ago Last UDS: 08/09/22 Last injection: none OARRS reviewed At the present time, the patient reports benefit with his present analgesic therapy. He is using miralax and movantik for his constipation. Since his previous visit, he denies any hospitalizations or ER visits. He states that the spinal cord stimulator helps and covers his areas of pain. INTAKE PAIN ASSESSMENT 09/20/2022 11/02/2022 Are you having pain associated with your visit today? Yes, Provider notified Yes, Provider notified Pain Scales Verbal (Numeric Rating or Visual Analog Scale) Verbal (Numeric Rating or Visual Analog Scale) Pain Level 8 9 Pain Location Leg-Left Leg-Left Description Stabbing/Not Incision;Aching;Burning Sharp;Stabbing;Burning;Aching Duration Amount of Time - - Duration Units - Years Frequency Continuous Continuous Intervention/Comfort measure Medication;Relaxation;Spinal Cord Stimulator Medication PAST MEDICAL HISTORY Diagnosis Date Amputated left leg (HCC) 2003 GERD (gastroesophageal reflux disease) PAST SURGICAL HISTORY Procedure Laterality Date ARTHROPLASTY HEMIARTHROPLASTY total knee ORTHOPEDICS SURGERY HX N/A 20 srg on left leg PRQ IMPLTJ NSTIM ELECTRODE ARRAY EPIDURAL SCS WRIST SURGERY HX right Social History Tobacco Use Smoking status: Never Smokeless tobacco: Never Substance Use Topics Alcohol use: Not Currently Drug use: Never HPI Review of Systems Constitutional: Negative for fever and unexpected weight change. Musculoskeletal: +back pain, joint pain/swelling, numbness, tingling, muscle cramps/weakness, stiffness, arthritis, sciatica, restless legs, leg pain at night and leg pain with exertion. Objective BP 127/75 (BP Site: Left Arm, BP Position: Sitting, BP Cuff Size: Large Adult) Pulse 103 Temp 36.5 C (97.7 F) (Temporal) Resp 20 Ht 170.2 cm (5' 7) Wt 89.4 kg (197 lb) SpO2 98% BMI 30.85 kg/m Physical Exam Vitals and nursing note reviewed. Constitutional: Appearance: Normal appearance. He is well-developed and well-groomed. He is obese. HENT: Head: Normocephalic and atraumatic. Right Ear: Hearing normal. Left Ear: Hearing normal. Eyes: Conjunctiva/sclera: Conjunctivae normal. Comments: Wearing glasses Musculoskeletal: Comments: He walks with a limp. The patient has tenderness to palpation in the thoracic and lumbar region with spasms noted in the paraspinal muscles. There is allodynia and hyperpathia noted in the BLE, right > left. Strength is 5/5 throughout. SLR is negative. He has tenderness to palpation in his right knee with crepitus noted. There is decreased hair growth and a reddish discoloration noted in the distal RLE. He has a prosthetic device noted in the distal LLE. There is allodynia noted in the left hand. Neurological: Mental Status: He is alert and oriented to person, place, and time. Psychiatric: Attention and Perception: Attention and perception normal. Mood and Affect: Mood and affect normal. Speech: Speech normal. Behavior: Behavior normal. Behavior is cooperative. Thought Content: Thought content normal. Judgment: Judgment normal. Assessment and Plan ASSESSMENT/PLAN: 1. Complex regional pain syndrome type 1 of left lower extremity - ICD9: 337.22, ICD10: G90.522 (primary diagnosis) The OARRS report has been reviewed and is consistent with the patients medical history and medication intake. Continue with the nucynta, cymbalta, hytrin, prilosec, movantik, and lunesta. Continue with the spinal cord stimulator as programmed. Patient was encouraged to increase fluid and fiber intake and to take over the counter stool softeners as needed for opioid-induced constipation. Continue with core strengthening and range of motion exercises FU in the office in 6 weeks. 2. Reflex sympathetic dystrophy of right leg - ICD9: 337.22, ICD10: G90.521 3. Osteoarthritis of right knee, unspecified osteoarthritis type - ICD9: 715.96, ICD10: M17.11 Estela Day PA-C documented in this encounter [facility] 10-26-2022 Miscellaneous Notes The following approved medication requests have been transmitted electronically. Requested Prescriptions Pending Prescriptions Disp Refills omeprazole (PRILOSEC) 40 mg capsule 60 capsule 3 Sig: Take 1 capsule by mouth twice daily. DULoxetine (CYMBALTA) 60 mg capsule 60 capsule 3 Sig: Take 1 capsule by mouth twice daily. MOVANTIK 25 mg tablet 30 tablet 3 Sig: Take 1 tablet by mouth once daily as needed. Estela Day PA-C Patient phones requesting refills as follows: Requested Prescriptions Pending Prescriptions Disp Refills omeprazole (PRILOSEC) 40 mg capsule 60 capsule 3 Sig: Take 1 capsule by mouth twice daily. DULoxetine (CYMBALTA) 60 mg capsule 60 capsule 3 Sig: Take 1 capsule by mouth twice daily. MOVANTIK 25 mg tablet 30 tablet 3 Sig: Take 1 tablet by mouth once daily as needed. Norma Sharma RN documented in this encounter [facility] 10-18-2022 Miscellaneous Notes The following approved medication requests have been transmitted electronically. Requested Prescriptions Pending Prescriptions Disp Refills tapentadol (NUCYNTA) 100 mg tab 120 tablet 0 Sig: Take 1 tablet by mouth every 6 hours as needed for up to 30 days. Estela Day PA-C Patient phones requesting refills as follows: Requested Prescriptions Pending Prescriptions Disp Refills tapentadol (NUCYNTA) 100 mg tab 120 tablet 0 Sig: Take 1 tablet by mouth every 6 hours as needed for up to 30 days. Please review and advise. Ashley Stratton RN documented in this encounter [facility] 08-24-2022 Miscellaneous Notes The following approved medication requests have been transmitted electronically. Requested Prescriptions Pending Prescriptions Disp Refills tapentadol (NUCYNTA) 100 mg tab 120 tablet 0 Sig: Take 1 tablet by mouth every 6 hours as needed for up to 30 days. Estela Day PA-C Patient phones requesting refills as follows: Requested Prescriptions Pending Prescriptions Disp Refills tapentadol (NUCYNTA) 100 mg tab 120 tablet 0 Sig: Take 1 tablet by mouth every 6 hours as needed for up to 30 days. Please review and advise. Ashley Stratton RN documented in this encounter [facility] 07-12-2022 Miscellaneous Notes The following approved medication requests have been transmitted electronically. Requested Prescriptions Pending Prescriptions Disp Refills terazosin (HYTRIN) 1 mg capsule 90 capsule 1 Sig: Take 1 capsule by mouth once daily. Estela Day PA-C Patient phones requesting refills as follows: Requested Prescriptions Pending Prescriptions Disp Refills terazosin (HYTRIN) 1 mg capsule 90 capsule 1 Sig: Take 1 capsule by mouth once daily. Ashley Stratton RN documented in this encounter [facility] 07-01-2022 Miscellaneous Notes The following approved medication requests have been transmitted electronically. Requested Prescriptions Pending Prescriptions Disp Refills DULoxetine (CYMBALTA) 60 mg capsule 60 capsule 3 Sig: Take 1 capsule by mouth twice daily. omeprazole (PRILOSEC) 40 mg capsule 60 capsule 3 Sig: Take 1 capsule by mouth twice daily. MOVANTIK 25 mg tablet 30 tablet 3 Sig: Take 1 tablet by mouth once daily as needed. Estela Day PA-C Sent to [facility] 06/30/22 Requested Prescriptions Pending Prescriptions Disp Refills DULoxetine (CYMBALTA) 60 mg capsule 60 capsule 3 Sig: Take 1 capsule by mouth twice daily. omeprazole (PRILOSEC) 40 mg capsule 60 capsule 3 Sig: Take 1 capsule by mouth twice daily. MOVANTIK 25 mg tablet 30 tablet 3 Sig: Take 1 tablet by mouth once daily as needed. Ashley Stratton RN documented in this encounter [facility] 06-30-2022 Miscellaneous Notes The following approved medication requests have been transmitted electronically. Requested Prescriptions Pending Prescriptions Disp Refills DULoxetine (CYMBALTA) 60 mg capsule 60 capsule 3 Sig: Take 1 capsule by mouth twice daily. MOVANTIK 25 mg tablet 30 tablet 3 Sig: Take 1 tablet by mouth once daily as needed. omeprazole (PRILOSEC) 40 mg capsule 60 capsule 3 Sig: Take 1 capsule by mouth twice daily. Estela Day PA-C Requested Prescriptions Pending Prescriptions Disp Refills DULoxetine (CYMBALTA) 60 mg capsule 60 capsule 3 Sig: Take 1 capsule by mouth twice daily. MOVANTIK 25 mg tablet 30 tablet 3 Sig: Take 1 tablet by mouth once daily as needed. omeprazole (PRILOSEC) 40 mg capsule 60 capsule 3 Sig: Take 1 capsule by mouth twice daily. Ashley Stratton RN documented in this encounter [facility] 06-28-2022 Instructions Estela Day PA-C - 06/28/2022 8:32 AM EDT The OARRS report has been reviewed and is consistent with the patients medical history and medication intake. Continue with the nucynta, cymbalta, hytrin, prilosec, movantik, and lunesta. Continue with the spinal cord stimulator as programmed. Patient was encouraged to increase fluid and fiber intake and to take over the counter stool softeners as needed for opioid-induced constipation. Continue with core strengthening and range of motion exercises FU in the office in 6 weeks. I discussed the patient with Dr. Hernandez who agrees with my assessment and plan. All of the above is to improve functionality and quality of life. No evidence of drug abuse or diversion is seen at this time. documented in this encounter [facility] 06-28-2022 History of Presen t illness Narrative This note was created using Promote[employer]. Subjective Cong Harrison is a 57 year old male. The patient primarily being seen for left leg pain - [facility] Patient was last seen on: 05/17/22 At that time, the treatment plan was: see notes Current Meds: Nucynta - last dose this am, Cymbalta - this am, Prilosec - this am, Hytrin last pm, Movantik - this am Efficacy: help Side effects: none TENS unit: SCS How often used: Benefit: Physical Therapy: years ago Last UDS: 01/25/22 Last injection: 09/20/19 - Right knee Synvisc One injection OARRS reviewed At the present time, the patient reports benefit with his present analgesic therapy. He denies any adverse effects. Since his previous visit, he denies any hospitalizations or ER visits. Otherwise, he has nothing further to discuss at this time. INTAKE PAIN ASSESSMENT 05/17/2022 06/28/2022 Are you having pain associated with your visit today? Yes, Provider notified Yes, Provider notified Pain Scales Verbal (Numeric Rating or Visual Analog Scale) Verbal (Numeric Rating or Visual Analog Scale) Pain Level 7 7 Pain Location Leg-Left Leg-Left Description Numbness;Tingling;Aching;Burning Aching;Dull;Sharp;Stabbing/Not Incision;Burning Duration Amount of Time - - Duration Units Years Years Frequency Continuous Continuous Intervention/Comfort measure Medication;Relaxation Medication HPI Review of Systems Constitutional: Negative for fever and unexpected weight change. Musculoskeletal: +back pain, joint pain/swelling, numbness, tingling, muscle cramps/weakness, stiffness, arthritis, sciatica, restless legs, leg pain at night and leg pain with exertion. PAST MEDICAL HISTORY Diagnosis Date Amputated left leg (HCC) 2003 GERD (gastroesophageal reflux disease) PAST SURGICAL HISTORY Procedure Laterality Date ARTHROPLASTY HEMIARTHROPLASTY total knee ORTHOPEDICS SURGERY HX N/A 20 srg on left leg PRQ IMPLTJ NSTIM ELECTRODE ARRAY EPIDURAL SCS WRIST SURGERY HX right Social History Tobacco Use Smoking status: Never Smokeless tobacco: Never Substance Use Topics Alcohol use: Not Currently Drug use: Never Objective BP 112/73 (BP Site: Right Arm, BP Position: Sitting, BP Cuff Size: Large Adult) Pulse 109 Temp 36.3 C (97.3 F) (Temporal) Resp 20 Ht 170.2 cm (5' 7) Wt 90.3 kg (199 lb) SpO2 96% BMI 31.17 kg/m Physical Exam Vitals and nursing note reviewed. Constitutional: Appearance: Normal appearance. He is well-developed and well-groomed. He is obese. HENT: Head: Normocephalic and atraumatic. Right Ear: Hearing normal. Left Ear: Hearing normal. Eyes: Conjunctiva/sclera: Conjunctivae normal. Comments: Wearing glasses Musculoskeletal: Comments: He walks with a limp. The patient has tenderness to palpation in the thoracic and lumbar region with spasms noted in the paraspinal muscles. There is allodynia and hyperpathia noted in the BLE, right > left. Strength is 5/5 throughout. SLR is negative. He has tenderness to palpation in his right knee with crepitus noted. There is decreased hair growth and a reddish discoloration noted in the distal RLE. He has a prosthetic device noted in the distal LLE. There is allodynia noted in the left hand. Neurological: Mental Status: He is alert and oriented to person, place, and time. Psychiatric: Attention and Perception: Attention and perception normal. Mood and Affect: Mood and affect normal. Speech: Speech normal. Behavior: Behavior normal. Behavior is cooperative. Thought Content: Thought content normal. Judgment: Judgment normal. Assessment and Plan ASSESSMENT/PLAN: 1. Complex regional pain syndrome type 1 of left lower extremity - ICD9: 337.22, ICD10: G90.522 (primary diagnosis) The OARRS report has been reviewed and is consistent with the patients medical history and medication intake. Continue with the nucynta, cymbalta, hytrin, prilosec, movantik, and lunesta. Continue with the spinal cord stimulator as programmed. Patient was encouraged to increase fluid and fiber intake and to take over the counter stool softeners as needed for opioid-induced constipation. Continue with core strengthening and range of motion exercises FU in the office in 6 weeks. 2. Osteoarthritis of right knee, unspecified osteoarthritis type - ICD9: 715.96, ICD10: M17.11 Estela Day PA-C documented in this encounter [facility] 06-22-2022 Miscellaneous Notes The following approved medication requests have been transmitted electronically. Requested Prescriptions Pending Prescriptions Disp Refills tapentadol (NUCYNTA) 100 mg tab 120 tablet 0 Sig: Take 1 tablet by mouth every 6 hours as needed for up to 30 days. Estela Day PA-C Patient phones requesting refills as follows: Requested Prescriptions Pending Prescriptions Disp Refills tapentadol (NUCYNTA) 100 mg tab 120 tablet 0 Sig: Take 1 tablet by mouth every 6 hours as needed for up to 30 days. Ashley Stratton RN documented in this encounter [facility] 05-17-2022 Miscellaneous Notes Summary: handicap placard An order was sent for a handicap placard for the patient. Pt request order for handicap placard mailed to him Please review and advise. Ashley Stratton RN documented in this encounter [facility] 05-17-2022 Instructions Estela Day PA-C - 05/17/2022 9:07 AM EDT The OARRS report has been reviewed and is consistent with the patients medical history and medication intake. Continue with the nucynta, cymbalta, hytrin, prilosec, movantik, and lunesta. Continue with the spinal cord stimulator as programmed. Patient was encouraged to increase fluid and fiber intake and to take over the counter stool softeners as needed for opioid-induced constipation. Continue with core strengthening and range of motion exercises FU in the office in 6 weeks. I discussed the patient with Dr. Hernandez who agrees with my assessment and plan. All of the above is to improve functionality and quality of life. No evidence of drug abuse or diversion is seen at this time. documented in this encounter [facility] 05-17-2022 History of Presen t illness Narrative This note was created using Q-Senseiriter. Subjective Cong Harrison is a 57 year old male. The patient primarily being seen for left leg pain - [facility] Patient was last seen on: 03/08/22 At that time, the treatment plan was: see notes Current Meds: Nucynta - last dose this am, Cymbalta - this am, Prilosec- this am Efficacy: helps Side effects: none TENS unit: SCS How often used: Benefit: Physical Therapy: Years ago Last UDS: 01/25/22 Last injection: 09/20/19 - Right knee Synvisc One OARRS reviewed At the present time, the patient reports benefit with his present analgesic therapy. He uses movantik and diet as needed for his constipation. Since his previous visit, he denies any hospitalizations or ER visits. The spinal cord stimulator helps and covers his areas of pain. His right foot has been getting a little tingly recently. HPI Review of Systems Constitutional: Negative for fever and unexpected weight change. Musculoskeletal: +back pain, joint pain/swelling, numbness, tingling, muscle cramps/weakness, stiffness, arthritis, sciatica, restless legs, leg pain at night and leg pain with exertion. PAST MEDICAL HISTORY Diagnosis Date Amputated left leg (HCC) 2003 GERD (gastroesophageal reflux disease) PAST SURGICAL HISTORY Procedure Laterality Date ARTHROPLASTY HEMIARTHROPLASTY total knee ORTHOPEDICS SURGERY HX N/A 20 srg on left leg PRQ IMPLTJ NSTIM ELECTRODE ARRAY EPIDURAL SCS WRIST SURGERY HX right Social History Tobacco Use Smoking status: Never Smoker Smokeless tobacco: Never Used Substance Use Topics Alcohol use: Not Currently Drug use: Never Objective BP 128/81 (BP Site: Right Arm, BP Position: Sitting, BP Cuff Size: Large Adult) Pulse 96 Temp 36.3 C (97.3 F) (Temporal) Resp 20 Ht 170.2 cm (5' 7) Wt 89.8 kg (198 lb) SpO2 97% BMI 31.01 kg/m Physical Exam Vitals and nursing note reviewed. Constitutional: Appearance: Normal appearance. He is well-developed and well-groomed. He is obese. HENT: Head: Normocephalic and atraumatic. Right Ear: Hearing normal. Left Ear: Hearing normal. Eyes: Conjunctiva/sclera: Conjunctivae normal. Comments: Wearing glasses Musculoskeletal: Comments: He walks with a limp. The patient has tenderness to palpation in the thoracic and lumbar region with spasms noted in the paraspinal muscles. There is allodynia and hyperpathia noted in the BLE, right > left. Strength is 5/5 throughout. SLR is negative. He has tenderness to palpation in his right knee with crepitus noted. There is decreased hair growth and a reddish discoloration noted in the distal RLE. He has a prosthetic device noted in the distal LLE. There is allodynia noted in the left hand. Neurological: Mental Status: He is alert and oriented to person, place, and time. Psychiatric: Attention and Perception: Attention and perception normal. Mood and Affect: Mood and affect normal. Speech: Speech normal. Behavior: Behavior normal. Behavior is cooperative. Thought Content: Thought content normal. Cognition and Memory: Cognition and memory normal. Judgment: Judgment normal. Assessment and Plan ASSESSMENT/PLAN: 1. Reflex sympathetic dystrophy of right leg - [facility] - ICD9: 337.22, ICD10: G90.521 (primary diagnosis) The OARRS report has been reviewed and is consistent with the patients medical history and medication intake. Continue with the nucynta, cymbalta, hytrin, prilosec, movantik, and lunesta. Continue with the spinal cord stimulator as programmed. Patient was encouraged to increase fluid and fiber intake and to take over the counter stool softeners as needed for opioid-induced constipation. Continue with core strengthening and range of motion exercises FU in the office in 6 weeks. 2. Complex regional pain syndrome type 1 of left lower extremity - ICD9: 337.22, ICD10: G90.522 3. Osteoarthritis of right knee, unspecified osteoarthritis type - ICD9: 715.96, ICD10: M17.11 Estela Day PA-C documented in this encounter [facility] 04-20-2022 Miscellaneous Notes The following approved medication requests have been transmitted electronically. Pending Prescriptions Disp Refills TAPENTADOL 100 MG TABLET 120 tablet 0 Sig: Take 1 tablet by mouth every 6 hours as needed for up to 30 days. LYNETTE Class: C-II LYNNETTE: No Estela Day PA-C Patient phones requesting refills as follows: Pending Prescriptions Disp Refills TAPENTADOL 100 MG TABLET 120 tablet 0 Sig: Take 1 tablet by mouth every 6 hours as needed for up to 30 days. LYNETTE Class: C-II LYNNETTE: No Please review and advise. Ashley Stratton RN documented in this encounter [facility] Evaluation note Diagnosis Reflex sympathetic dystrophy of right leg- Primary Reflex sympathetic dystrophy of the lower limb [facility] Reflex sympathetic dystrophy of right leg - [facility]- Primary Reflex sympathetic dystrophy of the lower limb Complex regional pain syndrome type 1 of left lower extremity Osteoarthritis of right knee, unspecified osteoarthritis type [facility] Diagnosis Reflex sympathetic dystrophy of right leg- Primary Reflex sympathetic dystrophy of the lower limb [facility] Reflex sympathetic dystrophy of right leg Reflex sympathetic dystrophy of the lower limb [facility] Diagnosis Complex regional pain syndrome type 1 of left lower extremity- Primary Osteoarthritis of right knee, unspecified osteoarthritis type [facility] Diagnosis Reflex sympathetic dystrophy of right leg Reflex sympathetic dystrophy of the lower limb [facility] Diagnosis Complex regional pain syndrome type 1 of left lower extremity- Primary Reflex sympathetic dystrophy of right leg Reflex sympathetic dystrophy of the lower limb Osteoarthritis of right knee, unspecified osteoarthritis type [facility] Diagnosis Reflex sympathetic dystrophy of right leg Reflex sympathetic dystrophy of the lower limb [facility] Diagnosis Reflex sympathetic dystrophy of right leg - [facility]- Primary Reflex sympathetic dystrophy of the lower limb Complex regional pain syndrome type 1 of left lower extremity - [facility] Osteoarthritis of right knee, unspecified osteoarthritis type - [facility] Diagnosis Reflex sympathetic dystrophy of right leg Reflex sympathetic dystrophy of the lower limb [facility] Diagnosis Complex regional pain syndrome type 1 of left lower extremity - [facility]- Primary Osteoarthritis of right knee, unspecified osteoarthritis type - [facility] Psychogenic pain - [facility] Psychogenic pain, site unspecified [facility] Diagnosis Complex regional pain syndrome type 1 of left lower extremity- Primary Reflex sympathetic dystrophy of right leg Reflex sympathetic dystrophy of the lower limb [facility] Diagnosis Drug therapy- Primary Encounter for long-term (current) use of other medications Reflex sympathetic dystrophy of right leg Reflex sympathetic dystrophy of the lower limb [facility] Diagnosis Complex regional pain syndrome type 1 of left lower extremity - [facility]- Primary Osteoarthritis of right knee, unspecified osteoarthritis type - [facility] Psychogenic pain - [facility] Psychogenic pain, site unspecified [facility] Diagnosis Complex regional pain syndrome type 1 of right lower extremity- Primary [facility] Diagnosis Complex regional pain syndrome type 1 of right lower extremity [facility] Diagnosis Complex regional pain syndrome type 1 of left lower extremity- Primary [facility] Diagnosis Complex regional pain syndrome type 1 of left lower extremity - [facility]- Primary Complex regional pain syndrome type 1 of right lower extremity - [facility] Osteoarthritis of right knee, unspecified osteoarthritis type - [facility] Psychogenic pain - [facility] Psychogenic pain, site unspecified [facility] Diagnosis Complex regional pain syndrome type 1 of left lower extremity- Primary Complex regional pain syndrome type 1 of right lower extremity - [facility] Osteoarthritis of right knee, unspecified osteoarthritis type - [facility] Psychogenic pain - [facility] Psychogenic pain, site unspecified [facility]* Diagnosis Complex regional pain syndrome type 1 of right lower extremity- Primary Complex regional pain syndrome type 1 of left lower extremity Other secondary osteoarthritis of right knee [facility]* Diagnosis Complex regional pain syndrome type 1 of left lower extremity [facility]* Diagnosis Complex regional pain syndrome type 1 of left lower extremity- Primary Complex regional pain syndrome type 1 of right lower extremity Osteoarthritis of right knee, unspecified osteoarthritis type - [facility] Psychogenic pain - [facility] Psychogenic pain, site unspecified [facility]* Diagnosis Complex regional pain syndrome type 1 of left lower extremity- Primary Complex regional pain syndrome type 1 of right lower extremity Osteoarthritis of right knee, unspecified osteoarthritis type - [facility] Psychogenic pain - [facility] Psychogenic pain, site unspecified [facility]* Diagnosis Complex regional pain syndrome type 1 of left lower extremity documented in this encounter [facility] noteNo assessment information availableWMarion Hospital Work Phone: Evaluation note* Diagnosis Subacute cough- Primary Cough Subacute cough Cough documented in this encounter [facility] note* Diagnosis Complex regional pain syndrome type 1 of left lower extremity - [facility]- Primary Complex regional pain syndrome type 1 of right lower extremity - [facility] Osteoarthritis of right knee, unspecified osteoarthritis type - [facility] Psychogenic pain - [facility] Psychogenic pain, site unspecified [facility]* Diagnosis Subacute cough Cough documented in this encounter [facility] note* Diagnosis Type 2 diabetes mellitus with hyperglycemia (Multi) documented in this encounter [facility] Work Phone: Reason for referral (narrative)* Outpatient Procedure (Routine) - Pending Review Specialty Diagnoses / Procedures Referred By Iris carson Referred To [facility] Diagnoses Drug therapy Procedures ECG COMPLETE ECG ROUTINE ECG W/LEAST 12 LDS W/I&R Dawit Hernandez MD [address] [place] [address] [facility] [address] [place] [address] Referral ID Status Reason Start Date Expiration Date Visits Requested Visits Authorized [id number] Pending Review Auto-Generat ed Referral 04/19/2023 04/18/2024 1 1 * Medication Prior Authorization - Closed Specialty Diagnoses / Procedures Referred By Iris carson Referred To Contact Diagnoses Reflex sympathetic dystrophy of right leg Dawit Hernandez MD [address] [place] [address] Referral ID Status Reason Start Date Expiration Date Visits Re quested Visits Authorized [id number] Closed 1 1 [facility] for referral (narrative)No reason for referral information availableWMarion Hospital Work Phone: Reason for visit Narrative* Imaging (Routine) - Pending Review Specialty Diagnoses / Procedures Referred By Iris carson Referred To Contact Radiology Diagnoses Type 2 diabetes mellitus with hyperglycemia (Multi) Procedures CT cardiac scoring wo IV contrast Afsaneh Green, DO [address] [address] Phone: tel: fax: Referral ID Status Reason Start Date Expiration Date Visits Requested Visits Authorized [id number] Pending Review Perform Procedure 07/11/2024 07/11/2025 1 1 [facility] Work Phone: Family History No Family History Records FoundUnknown Family Member Name Dates Details First Degree Relatives Comments:DM, Heart/Lung, HBP , high cholesterol Status:Active Unknown Family Member Name Dates Details First Degree Relatives Comments:DM, Heart/Lung, HBP , high cholesterol Status:Active Summary Purpose Advance Directives No Advanced Directives Records FoundNo Advanced Directives Records FoundNo Advanced Directives Records FoundNo Advanced Directives Records FoundNo Advanced Directives Records Found Reason for Referral Specialty Diagnoses / Procedures Referred By Iris carson Referred To Contact Diagnoses Reflex sympathetic dystrophy of right leg Estela Day PA-C [address] [place] [address] Referral ID Status Reason Start Date Expiration Date V isits Requested Visits Authorized [id number] Pending Review 1 1 Referral ID Status Reason Start Date Expiration Date V isits Requested Visits Authorized [id number] Pending Review 1 1 Referral ID Status Reason Start Date Expiration Date V isits Requested Visits Authorized [id number] Pending Review 1 1 Referral ID Status Reason Start Date Expiration Date V isits Requested Visits Authorized [id number] Pending Review 1 1 Specialty Diagnoses / Procedures Referred By Iris t Referred To Contact [facility] Diagnoses Complex regional pain syndrome type 1 of right lower extremity Complex regional pain syndrome type 1 of left lower extremity Other secondary osteoarthritis of right knee Procedures CONSULT TO PHYSICAL THERAPY PHYSICAL THERAPY EVALUATION HIGH COMPLEX 45 MINS Estela Day PA-C [address] [place] [address] [facility] [address] [place] [id number] Referral ID Status Reason Start Date Expiration Date Visits Requested Visits Authorized [id number] Pending Review Auto-Generat ed Referral 3 09/19/2024 1 1 Specialty Diagnoses / Procedures Referred By Iris carson Referred To Contact Occupational Therapy Diagnoses Complex regional pain syndrome type 1 of right lower extremity Complex regional pain syndrome type 1 of left lower extremity Other secondary osteoarthritis of right knee Procedures CONSULT TO CONVEYOR MONITOR Estela Day PA-C [address] [place] [address] Referral ID Status Reason Start Date Expiration Date Visits Requested Visits Authorized [id number] Ref Not Required PCP Requested Referral 3 09/15/2024 1 1 Chief Complaint and Reason for Visit Chief Complaint Admit Date URINE April 17, 2025 9:52 am Additional Source Comments (unrecognized sect ion and content) No Status Records FoundNo Status Records FoundNo Status Records FoundNo Status Records FoundNo Status Records Found INFORMATION SOURCE (unrecogn ized section and content) DATE CREATED AUTHOR 12/03/2020 [facility] DATE CREATED AUTHOR AUTHOR'S ORGANIZ ATION 05/04/2024 [facility] DATE CREATED AUTHOR AUTHOR'S ORGANIZ ATION 08/22/2024 [facility] DATE CREATED AUTHOR AUTHOR'S ORGANIZ ATION 08/24/2024 [facility] DATE CREATED AUTHOR AUTHOR'S ORGANIZ ATION 05/18/2025 [facility] Source Comments (unrecognize d section and content) In the event this informatio n is protected by the Federal Confidentiality of Alcohol and Drug Abuse Patient Records regulations: The Federal rules restrict any use of the information to criminally investigate or prosecute any alcohol or drug abuse patient.[facility] the event this information is protected by the Federal Confidentiality of Alcohol and Drug Abuse Patient Records regulations: The Federal rules restrict any use of the information to criminally investigate or prosecute any alcohol or drug abuse patient.[facility] the event this information is protected by the Federal Confidentiality of Alcohol and Drug Abuse Patient Records regulations: The Federal rules restrict any use of the information to criminally investigate or prosecute any alcohol or drug abuse patient.[facility] HospitalIn the event this information is protected by the Federal Confidentiality of Alcohol and Drug Abuse Patient Records regulations: The Federal rules restrict any use of the information to criminally investigate or prosecute any alcohol or drug abuse patient.[facility] HospitalIn the event this information is protected by the Federal Confidentiality of Alcohol and Drug Abuse Patient Records regulations: The Federal rules restrict any use of the information to criminally investigate or prosecute any alcohol or drug abuse patient.[facility] HospitalIn the event this information is protected by the Federal Confidentiality of Alcohol and Drug Abuse Patient Records regulations: The Federal rules restrict any use of the information to criminally investigate or prosecute any alcohol or drug abuse patient.[facility] HospitalIn the event this information is protected by the Federal Confidentiality of Alcohol and Drug Abuse Patient Records regulations: The Federal rules restrict any use of the information to criminally investigate or prosecute any alcohol or drug abuse patient.[facility] HospitalIn the event this information is protected by the Federal Confidentiality of Alcohol and Drug Abuse Patient Records regulations: The Federal rules restrict any use of the information to criminally investigate or prosecute any alcohol or drug abuse patient.[facility] HospitalIn the event this information is protected by the Federal Confidentiality of Alcohol and Drug Abuse Patient Records regulations: The Federal rules restrict any use of the information to criminally investigate or prosecute any alcohol or drug abuse patient.[facility] HospitalIn the event this information is protected by the Federal Confidentiality of Alcohol and Drug Abuse Patient Records regulations: The Federal rules restrict any use of the information to criminally investigate or prosecute any alcohol or drug abuse patient.[facility] HospitalIn the event this information is protected by the Federal Confidentiality of Alcohol and Drug Abuse Patient Records regulations: The Federal rules restrict any use of the information to criminally investigate or prosecute any alcohol or drug abuse patient.[facility] HospitalIn the event this information is protected by the Federal Confidentiality of Alcohol and Drug Abuse Patient Records regulations: The Federal rules restrict any use of the information to criminally investigate or prosecute any alcohol or drug abuse patient.[facility] HospitalIn the event this information is protected by the Federal Confidentiality of Alcohol and Drug Abuse Patient Records regulations: The Federal rules restrict any use of the information to criminally investigate or prosecute any alcohol or drug abuse patient.[facility] HospitalIn the event this information is protected by the Federal Confidentiality of Alcohol and Drug Abuse Patient Records regulations: The Federal rules restrict any use of the information to criminally investigate or prosecute any alcohol or drug abuse patient.[facility] HospitalIn the event this information is protected by the Federal Confidentiality of Alcohol and Drug Abuse Patient Records regulations: The Federal rules restrict any use of the information to criminally investigate or prosecute any alcohol or drug abuse patient.[facility] HospitalIn the event this information is protected by the Federal Confidentiality of Alcohol and Drug Abuse Patient Records regulations: The Federal rules restrict any use of the information to criminally investigate or prosecute any alcohol or drug abuse patient.[facility] HospitalIn the event this information is protected by the Federal Confidentiality of Alcohol and Drug Abuse Patient Records regulations: The Federal rules restrict any use of the information to criminally investigate or prosecute any alcohol or drug abuse patient.[facility] HospitalIn the event this information is protected by the Federal Confidentiality of Alcohol and Drug Abuse Patient Records regulations: The Federal rules restrict any use of the information to criminally investigate or prosecute any alcohol or drug abuse patient.[facility] HospitalIn the event this information is protected by the Federal Confidentiality of Alcohol and Drug Abuse Patient Records regulations: The Federal rules restrict any use of the information to criminally investigate or prosecute any alcohol or drug abuse patient.[facility] HospitalIn the event this information is protected by the Federal Confidentiality of Alcohol and Drug Abuse Patient Records regulations: The Federal rules restrict any use of the information to criminally investigate or prosecute any alcohol or drug abuse patient.[facility] HospitalIn the event this information is protected by the Federal Confidentiality of Alcohol and Drug Abuse Patient Records regulations: The Federal rules restrict any use of the information to criminally investigate or prosecute any alcohol or drug abuse patient.[facility] HospitalIn the event this information is protected by the Federal Confidentiality of Alcohol and Drug Abuse Patient Records regulations: The Federal rules restrict any use of the information to criminally investigate or prosecute any alcohol or drug abuse patient.[facility] HospitalIn the event this information is protected by the Federal Confidentiality of Alcohol and Drug Abuse Patient Records regulations: The Federal rules restrict any use of the information to criminally investigate or prosecute any alcohol or drug abuse patient.[facility] HospitalIn the event this information is protected by the Federal Confidentiality of Alcohol and Drug Abuse Patient Records regulations: The Federal rules restrict any use of the information to criminally investigate or prosecute any alcohol or drug abuse patient.[facility] HospitalIn the event this information is protected by the Federal Confidentiality of Alcohol and Drug Abuse Patient Records regulations: The Federal rules restrict any use of the information to criminally investigate or prosecute any alcohol or drug abuse patient.[facility] HospitalIn the event this information is protected by the Federal Confidentiality of Alcohol and Drug Abuse Patient Records regulations: The Federal rules restrict any use of the information to criminally investigate or prosecute any alcohol or drug abuse patient.[facility] HospitalIn the event this information is protected by the Federal Confidentiality of Alcohol and Drug Abuse Patient Records regulations: The Federal rules restrict any use of the information to criminally investigate or prosecute any alcohol or drug abuse patient.[facility] HospitalIn the event this information is protected by the Federal Confidentiality of Alcohol and Drug Abuse Patient Records regulations: The Federal rules restrict any use of the information to criminally investigate or prosecute any alcohol or drug abuse patient.[facility] HospitalIn the event this information is protected by the Federal Confidentiality of Alcohol and Drug Abuse Patient Records regulations: The Federal rules restrict any use of the information to criminally investigate or prosecute any alcohol or drug abuse patient.[facility] HospitalIn the event this information is protected by the Federal Confidentiality of Alcohol and Drug Abuse Patient Records regulations: The Federal rules restrict any use of the information to criminally investigate or prosecute any alcohol or drug abuse patient.[facility] HospitalIn the event this information is protected by the Federal Confidentiality of Alcohol and Drug Abuse Patient Records regulations: The Federal rules restrict any use of the information to criminally investigate or prosecute any alcohol or drug abuse patient.[facility] HospitalIn the event this information is protected by the Federal Confidentiality of Alcohol and Drug Abuse Patient Records regulations: The Federal rules restrict any use of the information to criminally investigate or prosecute any alcohol or drug abuse patient.[facility] HospitalIn the event this information is protected by the Federal Confidentiality of Alcohol and Drug Abuse Patient Records regulations: The Federal rules restrict any use of the information to criminally investigate or prosecute any alcohol or drug abuse patient.[facility] HospitalIn the event this information is protected by the Federal Confidentiality of Alcohol and Drug Abuse Patient Records regulations: The Federal rules restrict any use of the information to criminally investigate or prosecute any alcohol or drug abuse patient.[facility] HospitalIn the event this information is protected by the Federal Confidentiality of Alcohol and Drug Abuse Patient Records regulations: The Federal rules restrict any use of the information to criminally investigate or prosecute any alcohol or drug abuse patient.[facility] HospitalIn the event this information is protected by the Federal Confidentiality of Alcohol and Drug Abuse Patient Records regulations: The Federal rules restrict any use of the information to criminally investigate or prosecute any alcohol or drug abuse patient.[facility] HospitalIn the event this information is protected by the Federal Confidentiality of Alcohol and Drug Abuse Patient Records regulations: The Federal rules restrict any use of the information to criminally investigate or prosecute any alcohol or drug abuse patient.[facility] HospitalIn the event this information is protected by the Federal Confidentiality of Alcohol and Drug Abuse Patient Records regulations: The Federal rules restrict any use of the information to criminally investigate or prosecute any alcohol or drug abuse patient.[facility] HospitalIn the event this information is protected by the Federal Confidentiality of Alcohol and Drug Abuse Patient Records regulations: The Federal rules restrict any use of the information to criminally investigate or prosecute any alcohol or drug abuse patient.[facility] HospitalIn the event this information is protected by the Federal Confidentiality of Alcohol and Drug Abuse Patient Records regulations: The Federal rules restrict any use of the information to criminally investigate or prosecute any alcohol or drug abuse patient.[facility] HospitalIn the event this information is protected by the Federal Confidentiality of Alcohol and Drug Abuse Patient Records regulations: The Federal rules restrict any use of the information to criminally investigate or prosecute any alcohol or drug abuse patient.[facility] HospitalIn the event this information is protected by the Federal Confidentiality of Alcohol and Drug Abuse Patient Records regulations: The Federal rules restrict any use of the information to criminally investigate or prosecute any alcohol or drug abuse patient.[facility] HospitalIn the event this information is protected by the Federal Confidentiality of Alcohol and Drug Abuse Patient Records regulations: The Federal rules restrict any use of the information to criminally investigate or prosecute any alcohol or drug abuse patient.[facility] HospitalIn the event this information is protected by the Federal Confidentiality of Alcohol and Drug Abuse Patient Records regulations: The Federal rules restrict any use of the information to criminally investigate or prosecute any alcohol or drug abuse patient.[facility] HospitalIn the event this information is protected by the Federal Confidentiality of Alcohol and Drug Abuse Patient Records regulations: The Federal rules restrict any use of the information to criminally investigate or prosecute any alcohol or drug abuse patient.[facility] HospitalIn the event this information is protected by the Federal Confidentiality of Alcohol and Drug Abuse Patient Records regulations: The Federal rules restrict any use of the information to criminally investigate or prosecute any alcohol or drug abuse patient.[facility] HospitalIn the event this information is protected by the Federal Confidentiality of Alcohol and Drug Abuse Patient Records regulations: The Federal rules restrict any use of the information to criminally investigate or prosecute any alcohol or drug abuse patient.[facility] HospitalIn the event this information is protected by the Federal Confidentiality of Alcohol and Drug Abuse Patient Records regulations: The Federal rules restrict any use of the information to criminally investigate or prosecute any alcohol or drug abuse patient.[facility] HospitalIn the event this information is protected by the Federal Confidentiality of Alcohol and Drug Abuse Patient Records regulations: The Federal rules restrict any use of the information to criminally investigate or prosecute any alcohol or drug abuse patient.[facility] HospitalIn the event this information is protected by the Federal Confidentiality of Alcohol and Drug Abuse Patient Records regulations: The Federal rules restrict any use of the information to criminally investigate or prosecute any alcohol or drug abuse patient.[facility] HospitalIn the event this information is protected by the Federal Confidentiality of Alcohol and Drug Abuse Patient Records regulations: The Federal rules restrict any use of the information to criminally investigate or prosecute any alcohol or drug abuse patient.[facility] HospitalIn the event this information is protected by the Federal Confidentiality of Alcohol and Drug Abuse Patient Records regulations: The Federal rules restrict any use of the information to criminally investigate or prosecute any alcohol or drug abuse patient.[facility] HospitalIn the event this information is protected by the Federal Confidentiality of Alcohol and Drug Abuse Patient Records regulations: The Federal rules restrict any use of the information to criminally investigate or prosecute any alcohol or drug abuse patient.[facility] HospitalIn the event this information is protected by the Federal Confidentiality of Alcohol and Drug Abuse Patient Records regulations: The Federal rules restrict any use of the information to criminally investigate or prosecute any alcohol or drug abuse patient.[facility] HospitalIn the event this information is protected by the Federal Confidentiality of Alcohol and Drug Abuse Patient Records regulations: The Federal rules restrict any use of the information to criminally investigate or prosecute any alcohol or drug abuse patient.[facility] HospitalIn the event this information is protected by the Federal Confidentiality of Alcohol and Drug Abuse Patient Records regulations: The Federal rules restrict any use of the information to criminally investigate or prosecute any alcohol or drug abuse patient.[facility] HospitalIn the event this information is protected by the Federal Confidentiality of Alcohol and Drug Abuse Patient Records regulations: The Federal rules restrict any use of the information to criminally investigate or prosecute any alcohol or drug abuse patient.[facility] HospitalIn the event this information is protected by the Federal Confidentiality of Alcohol and Drug Abuse Patient Records regulations: The Federal rules restrict any use of the information to criminally investigate or prosecute any alcohol or drug abuse patient.[facility] HospitalIn the event this information is protected by the Federal Confidentiality of Alcohol and Drug Abuse Patient Records regulations: The Federal rules restrict any use of the information to criminally investigate or prosecute any alcohol or drug abuse patient.[facility] Care Teams (unrecognized sec tion and content) Flatwork Assembler Relationship Specialty Start Date End Date Danna Barrera [facility] [address] [place] [address] [address] [place], [place] [id number] PCP - General Optometry 03/29/22 Flatwork Assembler Relationship Specialty Start Date End Date Danna Barrera [facility] [address] [place] [address] [address] [place], [place] [id number] PCP - General Optometry 03/29/22 Flatwork Assembler Relationship Specialty Start Date End Date Danna Barrera [facility] [facility] [address] [place], [place] [id number] PCP - General Optometry 03/29/22 Flatwork Assembler Relationship Specialty Start Date End Date Danna Barrera [facility] [facility] [place] [address] PCP - General Optometry 03/29/22 Flatwork Assembler Relationship Specialty Start Date End Date Danna Barrera [facility] [facility] [place] [address] PCP - General Optometry 03/29/22 Flatwork Assembler Relationship Specialty Start Date End Date Danna Barrera [facility] [facility] [place] [address] PCP - General Optometry 03/29/22 Flatwork Assembler Relationship Specialty Start Date End Date Danna Barrera [facility] [facility] [place] [address] PCP - General Optometry 03/29/22 Flatwork Assembler Relationship Specialty Start Date End Date Danna Barrera [facility] [facility] [place] [address] PCP - General Optometry 03/29/22 Flatwork Assembler Relationship Specialty Start Date End Date Danna Barrera [facility] [facility] [place] [address] PCP - General Optometry 03/29/22 Flatwork Assembler Relationship Specialty Start Date End Date Danna Barrera [facility] [facility] [place] [address] PCP - General Optometry 03/29/22 Flatwork Assembler Relationship Specialty Start Date End Date Danna Barrera [facility] [facility] [place] [address] PCP - General Optometry 03/29/22 Flatwork Assembler Relationship Specialty Start Date End Date Danna Barrera [facility] [address] [place] [address] [place] [address] PCP - General Optometry 03/29/22 Flatwork Assembler Relationship Specialty Start Date End Date Danna Barrera [facility] [address] [place] [address] [place] [address] PCP - General Optometry 03/29/22 Flatwork Assembler Relationship Specialty Start Date End Date Danna Barrera [facility] [address] [place] [address] [place] [address] PCP - General Optometry 03/29/22 Flatwork Assembler Relationship Specialty Start Date End Date Danna Barrera NPI: [facility] [address] [place] [address] [place] [address] PCP - General Optometry 03/29/22 Flatwork Assembler Relationship Specialty Start Date End Date Danna Barrera NPI: [facility] [address] [place] [address] [place] [address] PCP - General Optometry 03/29/22 Flatwork Assembler Relationship Specialty Start Date End Date Danna Barrera NPI: [facility] [address] [place] [address] [place] [address] PCP - General Optometry 03/29/22 Flatwork Assembler Relationship Specialty Start Date End Date Danna Barrera NPI: [facility] [address] [place] [address] [place] [address] PCP - General Optometry 03/29/22 Flatwork Assembler Relationship Specialty Start Date End Date Danna Barrera NPI: [facility] [address] [place] [address] [place] [address] PCP - General Optometry 03/29/22 Flatwork Assembler Relationship Specialty Start Date End Date Danna Barrera NPI: [facility] [facility] [place] [address] PCP - General Optometry 03/29/22 Flatwork Assembler Relationship Specialty Start Date End Date Danna Barrera NPI: [facility] [facility] [place] [address] PCP - General Optometry 03/29/22 Flatwork Assembler Relationship Specialty Start Date End Date Danna Barrera NPI: [facility] [facility] [place] [address] PCP - General Optometry 03/29/22 Flatwork Assembler Relationship Specialty Start Date End Date Danna Barrera NPI: [facility] [facility] [place] [address] PCP - General Optometry 03/29/22 Flatwork Assembler Relationship Specialty Start Date End Date Danna Barrera NPI: [facility] [facility] [place] [address] PCP - General Optometry 03/29/22 Flatwork Assembler Relationship Specialty Start Date End Date Danna Barrera NPI: [facility] [facility] [place] [address] PCP - General Optometry 03/29/22 Flatwork Assembler Relationship Specialty Start Date End Date Danna Barrera NPI: [facility] [facility] [place] [address] PCP - General Optometry 03/29/22 Flatwork Assembler Relationship Specialty Start Date End Date Danna Barrera NPI: [facility] [facility] [place] [address] PCP - General Optometry 03/29/22 Flatwork Assembler Relationship Specialty Start Date End Date Afsaneh Green DO [address] [address] PCP - General Internal Medicine 08/15/24 Team Status: Active Member Role Status Dates Dr. Afsaneh Green DO Family Provider Active Dr. Afsaneh Green DO Primary Care Provider Active Team Status: Inactive Member Role Status Dates Dr. Afsaneh Green DO Primary Care Provider Active Start: April 17, 2025 End: April 17, 2025 Dr. Rory Sims MD Attending Provider Active Start: April 17, 2025 End: April 17, 2025 Dr. Rory Sims MD Referring Provider Active Start: April 17, 2025 End: April 17, 2025 Reason for Visit (unrecogniz ed section and content) Reason Comments Pain Left leg pain Specialty Diagnoses / Procedures Referred By Irsi carson Referred To Contact PAIN MANAGEMENT Diagnoses S82.52XA, S82.852A, S93.05XA, F45.42, F43.23,G90.522, L03.116, T81.31XA, L97.929, T70.0XXA, T81.89XA, A49.01, A49.02, M86.8X7, H90.3, M86.8X6, S88.112A, S83.241A, L90.5, M17.11, G90.521, M23.41, M23.91 Procedures REFERRAL TO [facility] Estela Day PA-C [address] [place] [address] [facility] [address] [place] [address] Referral ID Status Reason Start Date Expiration Date Visits Re quested Visits Authorized [id number] Closed 12/27/2023 12/27/2023 1 1 Reason Comments Leg Pain Left-catholic health Specialty Diagnoses / Procedures Referred By Contac t Referred To Contact Pain Management / PAIN MANAGEMENT Diagnoses FOLLOW UP [facility] Procedures REFERRAL TO [facility] EST PATIENT Danna Barrera [facility] [address] [place] [address] DR [place] [address] Estela Day PA-C [address] [place] [address] Referral ID Status Reason Start Date Expiration Date Visits Re quested Visits Authorized [id number] Closed 06/01/2023 06/01/2023 1 1 Specialty Diagnoses / Procedures Referred By Contact Referred To Contact Anesthesiology / PAIN MANAGEMENT Diagnoses FOLLOW UP Procedures EST PATIENT Dawit Hernandez MD [address] [place] [address] Dawit Hernandez MD [address] [place] [address] Referral ID Status Reason Start Date Expiration Date V isits Requested Visits Authorized [id number] Closed Patient Cleared - Admin/Chairm an/Director advise to proceed 01/26/2023 01/26/2023 1 1 Reason Onset Date Comments Refill Request 04/20/2022 Reason Comments Pain Specialty Diagnoses / Procedures Referred By Contac t Referred To Contact Pain Management / PAIN MANAGEMENT Diagnoses follow up Procedures FOLLOW-UP/REASSESSMENT EST PATIENT Danna Barrera [facility] [address] [place] [address] [place] [address] Estela Day, PAAziza [address] [place] [address] Referral ID Status Reason Start Date Expiration Date Visits Requested Visits Authorized [id number] Pending Review OON/Self Pay Override Patient Cleared - Admin/Chair man/Directo r advise to proceed 05/17/2022 08/15/2022 1 1 Reason Comments Orders Reason Onset Date Comments Refill Request 06/22/2022 Referral ID Status Reason Start Date Expiration Date Visits Re quested Visits Authorized [id number] Closed 06/28/2022 08/27/2022 1 1 Reason Onset Date Comments Refill Request 06/30/2022 Reason Onset Date Comments Refill Request 07/01/2022 Reason Onset Date Comments Refill Request 07/12/2022 Reason Onset Date Comments Refill Request 08/24/2022 Reason Onset Date Comments Refill Request 10/18/2022 Reason Onset Date Comments Refill Request 10/26/2022 Specialty Diagnoses / Procedures Referred By Contac t Referred To Contact Pain Management / PAIN MANAGEMENT Diagnoses FOLLOW UP [facility] Procedures EST PATIENT Dawit Hernandez MD [address] [place] [address] Estela Day PA-C [address] [place] [address] Referral ID Status Reason Start Date Expiration Date Visits Re quested Visits Authorized [id number] Closed 11/02/2022 11/02/2022 1 1 Reason Comments Pain Left leg [facility] Specialty Diagnoses / Procedures Referred By Contac t Referred To Contact Pain Management / PAIN MANAGEMENT Diagnoses FOLLOW UP Procedures EST PATIENT Estela Day PA-C [address] [place] [address] Estela Day PA-C [address] [place] [address] Referral ID Status Reason Start Date Expiration Date Visits Requested Visits Authorized [id number] Pending Review Patient Cleared - Admin/Chair man/Directo r advise to proceed 12/14/2022 03/14/2023 1 1 Reason Onset Date Comments Refill Request 12/21/2022 Reason Onset Date Comments Refill Request 01/12/2023 Reason Onset Date Comments Refill Request 02/21/2023 Referral ID Status Reason Start Date Expiration Date Visits Requested Visits Authorized [id number] Pending Review Patient Cleared - Admin/Chair man/Directo r advise to proceed 01/26/2023 04/26/2023 1 1 Reason Onset Date Comments Refill Request 03/10/2023 Reason Onset Date Comments Refill Request 04/15/2023 Reason Comments Nucynta denied - [facility] Referral ID Status Reason Start Date Expiration Date V isits Requested Visits Authorized [id number] Closed Patient Cleared - Admin/Chairm an/Director advise to proceed or did not respond 04/20/2023 04/20/2023 1 1 Reason Comments Methadone needs PA / contraindicated Reason Onset Date Comments Refill Request 04/21/2023 Reason Onset Date Comments Refill Request 04/22/2023 Reason Onset Date Comments Refill Request 05/30/2023 Specialty Diagnoses / Procedures Referred By Contac t Referred To Contact Pain Management / PAIN MANAGEMENT Diagnoses FOLLOW UP [facility] Procedures EST PATIENT Estela Day PA-C [address] [place] [address] Estela Day PA-C [address] [place] [address] Referral ID Status Reason Start Date Expiration Date V isits Requested Visits Authorized [id number] Closed Patient Cleared - Admin/Chairm an/Director advise to proceed or did not respond 07/13/2023 10/11/2023 1 1 Reason Onset Date Comments Refill Request 07/19/2023 Reason Comments Request for OT Eval Reason Onset Date Comments Refill Request 09/26/2023 Specialty Diagnoses / Procedures Referred By Contac t Referred To Contact PAIN MANAGEMENT Diagnoses Follow-up exam Procedures FOLLOW-UP/REASSESSMENT Estela Day PA-C [address] [place] [address] [facility] [address] [place] [address] Referral ID Status Reason Start Date Expiration Date Visits Re quested Visits Authorized [id number] Closed 10/05/2023 10/05/2023 1 1 Reason Onset Date Comments Refill Request 01/12/2024 Reason Onset Date Comments Refill Request 01/20/2024 Reason Onset Date Comments Refill Request 02/27/2024 Reason Onset Date Comments Refill Request 03/19/2024 Reason Comments Medication Problem Reason Comments Update on powerW Reason Comments Pain Right leg pain Specialty Diagnoses / Procedures Referred By Contac t Referred To Contact PAIN MANAGEMENT Diagnoses M17.11 G90.521 F45.42 Procedures REFERRAL TO [facility] Estela Day PA-C [address] [place] [address] [address] Referral ID Status Reason Start Date Expiration Date Visits Re quested Visits Authorized [id number] Closed 04/04/2024 04/04/2024 1 1 Reason Comments Results Reason Comments Cough Runny nose x1 mth Reason Comments Request for C9 - scooter left & cover Specialty Diagnoses / Procedures Referred By Contac t Referred To Contact PAIN MANAGEMENT Diagnoses G90.522 G90.521 M17.11 F45.42 Procedures REFERRAL TO [facility] Estela Day PA-C [address] [place] [address] [address] Referral ID Status Reason Start Date Expiration Date Visits Re quested Visits Authorized [id number] Closed 05/25/2024 05/25/2024 1 1 Reason Comments Change in POR for BWC Reason Onset Date Comments Refill Request 06/25/2024 Reason Onset Date Comments Refill Request 06/26/2024 Reason Comments [employer] PA Reason Comments New POR referral Reason Comments Appointment Cx Specialty Diagnoses / Procedures Referred By Contac t Referred To Contact Pain Management / PAIN MANAGEMENT Diagnoses FOLLOW UP Procedures EST PATIENT Estela Day PA-C [address] [place] [address] Estela Day PA-C [address] [place] [address] Referral ID Status Reason Start Date Expiration Date Visits Re quested Visits Authorized [id number] Closed 02/07/2024 02/07/2024 1 1 Goals (unrecognized section and content) Goals may be documented in a n alternate sectionGoals may be documented in an alternate section FOR RECORDS PERTAINING TO PATIENTS WHO ARE OR HAVE BEEN ENROLLED IN A CHEMICAL DEPENDENCY/SUBSTANCEABUSE PROGRAM, SOME INFORMATION MAY BE OMITTED. This clinical summary was aggregated from multiple sources. Caution should be exercised in using it in the provision of clinical care. This summary normalizes information from multiple sources, and as a consequence, information in this document may materially change the coding, format and clinical context of patient data. In addition, data may be omitted in some cases. CLINICAL DECISIONS SHOULD BE BASED ON THE PRIMARY CLINICAL RECORDS. [facility] [facility]. provides no warranty or guarantee of the accuracy or completeness of information in this document.
--- OUTSIDE RECORDS SUMMARY | 2025-06-10 07:22 | XMS RPT_ITS | CCD ---
Author Organization [facility] CliniSyde Care Team Providers Care Stripper Machine Operator Name Role Phone Afsaneh Green Unavailable Afsaneh Green Unavailable Patricia Ash Unavailable Unavailable Josette Hoffman Unavailable Unavailable Contact Person, System Unavailable Unavailable Unavailable Unavailable Unavailable Primary Care Provider UnavailDanna Basilio Primary Care Provider [phone] Danna Barrera Primary Care Provider Danna Barrera Primary Care Provider [phone] Danna Barrera Primary Care Provider [phone] Danna Barrera Primary Care Provider ASHUTOSH HENNESSY Referring Unavailable DANNA BARRERA Primary Care Unavailable DANNA BARRERA Primary Care Unavailable Afsaneh Green DO Primary Care Provider [phone] AFSANEH GREEN Referring Unavailable AFSANEH GREEN Primary [...] Bethany ROLLINS, Dr. Valadez Attending Provider [phone] Dr. Rory Sims MD Referring Provider [phone] Nelida, Afsaneh Attending Unavailable Nelida, Afsaneh Referring [...] (2 sources) Adhesive Tape Substance Allergy 8 [facility] Work Phone: (2 sources) Adhesive Tape allergy to substance [facility] Work Phone: Comment on above: blisters (20 sources) Adhesive Tape; Translations: [ADHESIVE TAPE (ROSINS)] Propensity to adverse reactions 8 [facility] Work Phone: (1 source) ALLERGIES NOT ON FILE; Translations: [ALLERGIES NOT ON FILE] Propensity to adverse reactions (disorder) [facility] 2 Repository (1 source) Adhesive Tape Drug allergy (disorder) 4 [facility] Repository Medications Current Medications Medication Drug Class(es) [...] twice daily. Take 1 capsule by mo [facility] two times a day. eszopiclone 3 mg [...] mouth twice daily. Take 1 capsule by [facility] twice daily. Take 1 capsule by [facility] two times a day. oxyCODONE [...] for 30 days. Take 1 tablet by [facility] every 6 hours as needed for up [...] by mouth. Take 1 capsule by mo [facility] once daily. traZODone (20 sources) Serotonin Reuptake [...] days Refills: 0 Ordered: 30-Jul-2009 Patricia Ash [employer] Active naloxone hydrochloride 40 mg/ml nasal spray [...] 15 {Tablet} Refills: 0 Ordered: 12-Mar-2009 Patricia Ash [...] days Refills: 0 Ordered: 05-Sep-2007 Patricia Ash [employer] Start : 05-Sep-2007 End : 25-Sep-2007 Inactive Comments: 1g mixed and given through pic line by Chavez Sultana. Lot [id number] DDdd 04-10-09 Comment on above: 1g mixed and given t hrough pic line by [employer] Sultana. Lot [id number] DDdd 04-10-09 vancomycin 1000 mg injection (2 sources) Glycopeptide Antibacterial Start: 03-13-2011 End: 03-14-2011 VANCOMYCIN HCL, 1000MG (Intravenous Solution Reconstituted) 1g For Solution qd for 1 days Quantity: 1 {For_Solution} Refills: 0 Ordered: 13-Mar-2011 Afsaneh Green DO, DO, Kathleen Start : 13-Mar-2011 End : 14-Mar-2011 Inactive Comments: lot [id number] 05/11 Start: 09-05-2007 End: 09-25-2007 VANCOCIN HCL, 1GM/200ML (Int ravenous Solution) Solution for 0 days Refills: 0 Ordered: 05-Sep-2007 Patricia Ash RN Start : 05-Sep-2007 End : 25-Sep-2007 Inactive Comments: 1g mixed and given through pic line by Chavez Sultana. Lot [id number] DDdd 04-10-09 Comment on above: 1g mixed and given t hrough pic line by Chavez Sultana. Lot [id number] DDdd 04-10-09 lot [id number] 05/11 VANCOMYCIN HCL, 1000MG (Intravenous Solution Reconstituted) (1 source) Start: 03-13-2011 End: 03-14-2011 VANCOMYCIN HCL, 1000MG (Intravenous Solution Reconstituted) 1g For Solution qd for 1 days Quantity: 1 {For_Solution} Refills: 0 Ordered: 13-Mar-2011 Afsaneh Green DO, DO, Kathleen Start : 13-Mar-2011 End : 14-Mar-2011 Inactive Comments: lot [id number] exp 05/11 Comment on above: lot [id number] exp 05/11 VITAMIN C CR, 1000-100MG (Oral [...] (1 source) Patient encounter status; Translations: [Other custodial (current) drug therapy] Episodic Other ear and [...] current use of drug therapy; Translations: [Other emergency department manager (current) drug therapy] Onset: 07-31-2020 03-29-2022 Episodic [...] L3410.9992on 04-28-2025 [facility] Misc. COMMENT Normal . [facility] Comment on above: Order Comment: [id number] TAPENTADOL URINE Result Comment: Test Ordered: [id number] Tapentadol, Urine Tapentadol, Urine Note: ng/mL UI See Final Results Reference Range: Abkkjz=467 This test was developed and its performance characteristics determined by [facility]. It has not been cleared or approved by the Food and Drug Administration. Tapentadol Positive [A ] UI Reference Range: Ykpmrp=986 Tapentadol Conf, [place], [place] >[address] ng/mL UI Reference Range: Jphwzk=771 Tapentadol detected; this finding is consistent with use of medication Nucynta, or generic formulations. Performed at: [facility] [address] [place], [place] [id number] Music Therapist: Nicolas Griffin PhD, Phone: [phone] Performed at: [facility] [address] [id number] Music Therapist: Catrachito Armas PhD, Phone: [phone] Performed By: #### L 505.5000, L3410.9992 #### [facility] [address] [place], [place], [id number] Amphetamine detection with 1 000 ng/mL as cutoffOrdered By: Rory Sims on 04-17-2025 Amphetamines Screen method >1000 ng/mL Ql (U) Negative < 200 ng/mL [facility] No Panel InformationOrdered By: Rory Sims on 04-17-2025 Urine Buprenorphine Qualitative Negative < 200 ng/mL [facility] Urine Oxycodone Screen Negative < 100 ng/mL [facility] Quantitative urine opiates m easurementOrdered By: Rory Sims on 04-17-2025 Opiates Ql (U) Negative < 300 ng/mL [facility] Screening urine fentanyl roberth surementOrdered By: Rory Sims on 04-17-2025 fentaNYL Screen Ql (U) Negative [facility] Urine Drug Screen (VISTA)on 04-17-2025 AMPHETAMINES Negative Normal <1000 ng/mL [facility] Comment on above: Order Comment: PAIN MANAGMENT Performed By: #### L 505.5000, L3410.9992 #### [facility] [address] [place], [place], [id number] BARBITIURATES Negative Normal < 200 ng/mL [facility] Comment on above: Order Comment: PAIN MANAGMENT Performed By: #### L 505.5000, L3410.9992 #### [facility] [address] [facility] [id number] BENZODIAZIPINE Negative Normal < 200 ng/mL [facility] Comment on above: Order Comment: PAIN MANAGMENT Performed By: #### L 505.5000, L3410.9992 #### [facility] [address] [place], [place], [id number] BUP Ur Drug Scr Negative Normal < 200 ng/mL [facility] Comment on above: Order Comment: PAIN MANAGMENT Performed By: #### L 505.5000, L3410.9992 #### [facility] [address] [place], [address] COCAINE Negative Normal < 300 ng/mL [facility] Comment on above: Order Comment: PAIN MANAGMENT Performed By: #### L 505.5000, L3410.9992 #### [facility] [address] [place], [address] Fentanyl Negative Normal [facility] Comment on above: Order Comment: PAIN MANAGMENT Performed By: #### L 505.5000, L3410.9992 #### [facility] [address] [place], [address] METHADONE Negative Normal < 300 ng/mL [facility] Comment on above: Order Comment: PAIN MANAGMENT Performed By: #### L 505.5000, L3410.9992 #### [facility] [address] [place], [address] OPIATES Negative Normal < 300 ng/mL [facility] Comment on above: Order Comment: PAIN MANAGMENT Performed By: #### L 505.5000, L3410.9992 #### [facility] [address] [place], [address] OXYCODONE Negative Normal < 100 ng/mL [facility] Comment on above: Order Comment: PAIN MANAGMENT Performed By: #### L 505.5000, L3410.9992 #### [facility] [address] [place], [address] PCP Negative Normal < 25 ng/mL [facility] Comment on above: Order Comment: PAIN MANAGMENT Performed By: #### L 505.5000, L3410.9992 #### [facility] [address] [place], [address] THC Negative Normal < 50 ng/mL [facility] Comment on above: Order Comment: PAIN MANAGMENT Performed By: #### L 505.5000, L3410.9992 #### [facility] [address] [place], [place], [id number] Urine benzodiazepine levelOr dered By: Rory Sims on 04-17-2025 Benzodiazepines Ql (U) Negative < 200 ng/mL [facility] Urine cocaine levelOrdered B y: Rory Sims on 04-17-2025 Cocaine Ql (U) Negative < 300 ng/mL [facility] Urine nfqlw-2-qfgjjjajbbibvd abinol (THC) measurementOrdered By: Rory Bethany on 04-17-2025 Cannabinoids Screen Ql (U) Negative < 50 ng/mL [facility] Urine phencyclidine (PCP) de tectionOrdered By: Rory Sims on 04-17-2025 Phencyclidine Ql (U) Negative < 25 ng/mL [facility] CBC W/Diff, Automatedon - Absolute Lymph 2.12 X10 3/uL Normal 0.83-4.51 [facility] Comment on above: Performed By: #### L 506.1000, L500.4050, L500.4100, L400.0001, L501.9520, L502.0250, L100.0100, L503.0105 #### [facility] [address] [place], [place], [id number] Absolute Neut 7.3 X10 3/uL Normal 2.0-7.7 [facility] Comment on above: Performed By: #### L 506.1000, L500.4050, L500.4100, L400.0001, L501.9520, L502.0250, L100.0100, L503.0105 #### [facility] [address] [place], [address] Basophils/100 WBC (Bld) 0.8 % Normal 0-1 [facility] Comment on above: Performed By: #### L 506.1000, L500.4050, L500.4100, L400.0001, L501.9520, L502.0250, L100.0100, L503.0105 #### [facility] [address] [place], [address] Eosinophils/100 WBC (Bld) 1.6 % Normal 0-5 [facility] Comment on above: Performed By: #### L 506.1000, L500.4050, L500.4100, L400.0001, L501.9520, L502.0250, L100.0100, L503.0105 #### [facility] [address] [place], [address] Erythrocyte distribution width (RBC) [Ratio] 12.8 % Normal 11.6-14.6 [facility] Comment on above: Performed By: #### L 506.1000, L500.4050, L500.4100, L400.0001, L501.9520, L502.0250, L100.0100, L503.0105 #### [facility] [address] [place], [address] Hematocrit (Bld) [Volume fraction] 41.1 % Normal 40-54 [facility] Comment on above: Performed By: #### L 506.1000, L500.4050, L500.4100, L400.0001, L501.9520, L502.0250, L100.0100, L503.0105 #### [facility] [address] [place], [address] Hemoglobin (Bld) [Mass/Vol] 13.4 g/dL Normal 13.0-16.5 [facility] Comment on above: Performed By: #### L 506.1000, L500.4050, L500.4100, L400.0001, L501.9520, L502.0250, L100.0100, L503.0105 #### [facility] [address] [place], [address] IG% 0.600 Normal 0.0-0.9 [facility] Comment on above: Result Comment: IG% - Immature Granulocytes (promyelocytes, myelocytes and metamyelocytes) > 1% indicates that a LEFT SHIFT is Present. Performed By: #### L 506.1000, L500.4050, L500.4100, L400.0001, L501.9520, L502.0250, L100.0100, L503.0105 #### [facility] [address] [place], [address] Lymphocytes/100 WBC (Bld) 20.4 % Normal 19-41 [facility] Comment on above: Performed By: #### L 506.1000, L500.4050, L500.4100, L400.0001, L501.9520, L502.0250, L100.0100, L503.0105 #### [facility] [address] [facility] [place], [address] MCH (RBC) [Entitic mass] 28.9 pg Normal 27.0-32.0 [facility] Comment on above: Performed By: #### L 506.1000, L500.4050, L500.4100, L400.0001, L501.9520, L502.0250, L100.0100, L503.0105 #### [facility] [address] [place], [address] MCHC (RBC) [Mass/Vol] 32.6 g/dL Normal 32-36 [facility] Comment on above: Performed By: #### L 506.1000, L500.4050, L500.4100, L400.0001, L501.9520, L502.0250, L100.0100, L503.0105 #### [facility] [address] [place], [address] MCV (RBC) [Entitic vol] 88.8 fL Normal 80-94 [facility] Comment on above: Performed By: #### L 506.1000, L500.4050, L500.4100, L400.0001, L501.9520, L502.0250, L100.0100, L503.0105 #### [facility] [address] [place], [address] Monocytes/100 WBC (Bld) 6.8 % Normal 0-10 [facility] Comment on above: Performed By: #### L 506.1000, L500.4050, L500.4100, L400.0001, L501.9520, L502.0250, L100.0100, L503.0105 #### [facility] [address] [place], [address] Neutrophils/100 WBC (Bld) 69.8 % Normal 47-70 [facility] Comment on above: Performed By: #### L 506.1000, L500.4050, L500.4100, L400.0001, L501.9520, L502.0250, L100.0100, L503.0105 #### [facility] [address] [place], [address] Nucleated RBC (Bld) [#/Vol] 0 10*3/uL Normal 0-5 [facility] Comment on above: Performed By: #### L 506.1000, L500.4050, L500.4100, L400.0001, L501.9520, L502.0250, L100.0100, L503.0105 #### [facility] [address] [place], [address] Platelet mean volume (Bld) [Entitic vol] 9.2 fL Normal 6.2-12.0 [facility] Comment on above: Performed By: #### L 506.1000, L500.4050, L500.4100, L400.0001, L501.9520, L502.0250, L100.0100, L503.0105 #### [facility] [address] [place], [address] Platelets (Bld) [#/Vol] 368 10*3/uL Normal 150-450 [facility] Comment on above: Performed By: #### L 506.1000, L500.4050, L500.4100, L400.0001, L501.9520, L502.0250, L100.0100, L503.0105 #### [facility] [address] [place], [address] RBC (Bld) [#/Vol] 4.63 10*6/uL Normal 4.6-6.2 [facility] Comment on above: Performed By: #### L 506.1000, L500.4050, L500.4100, L400.0001, L501.9520, L502.0250, L100.0100, L503.0105 #### [facility] [address] [place], [address] RDW SD 41.6 fl Normal 35.1-43.9 [facility] Comment on above: Performed By: #### L 506.1000, L500.4050, L500.4100, L400.0001, L501.9520, L502.0250, L100.0100, L503.0105 #### [facility] [address] [place], [address] WBC (Bld) [#/Vol] 10.4 10*3/uL Normal 4.4-11.0 [facility] Comment on above: Performed By: #### L 506.1000, L500.4050, L500.4100, L400.0001, L501.9520, L502.0250, L100.0100, L503.0105 #### [facility] [address] [place], [address] [facility] 12-21-2024 Albumin [Mass/Vol] 3.7 g/dL Normal 3.2-5.0 [facility] Comment on above: Performed By: #### L 505.5000, L3410.9992 #### [facility] [address] [place], [address] Albumin/Globulin [Mass ratio] 0.9 {ratio} Normal 0.9-2.4 [facility] Comment on above: Performed By: #### L 505.5000, L3410.9992 #### [facility] [address] [place], [address] ALK P 70 U/L Normal 45-117 [facility] Comment on above: Performed By: #### L 505.5000, L3410.9992 #### [facility] [address] [place], [address] ALT [Catalytic activity/Vol] 34 U/L Normal 16-61 [facility] Comment on above: Performed By: #### L 505.5000, L3410.9992 #### [facility] [address] [place], [address] AST [Catalytic activity/Vol] 12 U/L Low 15-37 [facility] Comment on above: Performed By: #### L 505.5000, L3410.9992 #### [facility] [address] [place], [address] Bilirubin [Mass/Vol] 0.50 mg/dL Normal 0.20-1.00 [facility] Comment on above: Result Comment: For patients on eltrombopag therapy, use of Dimension [place] TBIL is not recommended. Performed By: #### L 505.5000, L3410.9992 #### [facility] [address] [place], [address] BUN/CRE 19.0 RATIO Normal 10-20 [facility] Comment on above: Performed By: #### L 505.5000, L3410.9992 #### [facility] [address] [place], [address] CA,Total 9.8 mg/dL Normal 8.5-10.1 [facility] Comment on above: Performed By: #### L 505.5000, L3410.9992 #### [facility] [address] [place], [address] Chloride [Moles/Vol] 105 mmol/L Normal 98-107 [facility] Comment on above: Performed By: #### L 505.5000, L3410.9992 #### [facility] [address] [place], [address] CO2 [Moles/Vol] 29.0 mmol/L Normal 21.0-32.0 [facility] Comment on above: Performed By: #### L 505.5000, L3410.9992 #### [facility] [address] [place], [address] Creatinine [Mass/Vol] 0.84 mg/dL Normal 0.70-1.30 [facility] Comment on above: Result Comment: The validity of the calculated GFR GFRAA in patients over 70 years has not been determined. Clinical correlation is essential. Performed By: #### L 505.5000, L3410.9992 #### [facility] [address] [place], [address] EST GFR - AA 120 mL/min Normal >60 [facility] Comment on above: Result Comment: Afri can Ivorian GFR Calc Performed By: #### L 505.5000, L3410.9992 #### [facility] [address] [place], [address] GAP 5 Normal 5-15 [facility] Comment on above: Performed By: #### L 505.5000, L3410.9992 #### [facility] [address] [place], [address] GFR/1.73 sq M.predicted among non-blacks MDRD (S/P/Bld) [Vol rate/Area] 99 mL/min/{1.73_m2} Normal >60 [facility] Comment on above: Result Comment: Non- GFR Calc Performed By: #### L 505.5000, L3410.9992 #### [facility] [address] [place], [address] Globulin (S) [Mass/Vol] 3.9 g/dL Normal 2.2-4.2 [facility] Comment on above: Performed By: #### L 505.5000, L3410.9992 #### [facility] [address] [place], [address] Glucose [Mass/Vol] 111 mg/dL High 74-106 [facility] Comment on above: Result Comment: Fast ing Glucose result from 100 to 125 mg/dL suggests IMPAIRED HOMEOSTASIS per A.D.A. criteria. Performed By: #### L 505.5000, L3410.9992 #### [facility] [address] [place], [address] Potassium [Moles/Vol] 4.1 mmol/L Normal 3.5-5.1 [facility] Comment on above: Performed By: #### L 505.5000, L3410.9992 #### [facility] [address] [place], [address] Sodium [Moles/Vol] 139 mmol/L Normal 136-145 [facility] Comment on above: Performed By: #### L 505.5000, L3410.9992 #### [facility] [address] [place], [address] T PROT 7.6 g/dL Normal 6.4-8.2 [facility] Comment on above: Performed By: #### L 505.5000, L3410.9992 #### [facility] [address] [place], [address] Urea nitrogen [Mass/Vol] 16 mg/dL Normal 7-18 [facility] Comment on above: Performed By: #### L 505.5000, L3410.9992 #### [facility] [address] [place], [address] Lipid Profileon 12-21-2024 Cholesterol [Mass/Vol] 145 mg/dL Normal 200 [facility] Comment on above: Result Comment: <200 mg/dL Desirable 200-240 mg/dL Borderline >240 mg/dL High Risk Performed By: #### L 505.5000, L3410.9992 #### [facility] [address] [place], [address] Cholesterol in HDL [Mass/Vol] 50 mg/dL Normal [facility] Comment on above: Result Comment: The drugs N-Acetylcysteine and Metamizole may falsely depress this assay. Reference Range HDL <40 mg/dL Low HDL Cholesterol HDL >or= 60 mg/dL High HDL Cholesterol Performed By: #### L 505.5000, L3410.9992 #### [facility] [address] [place], [address] Cholesterol in LDL [Mass/Vol] 81 mg/dL Normal 0-130 [facility] Comment on above: Performed By: #### L 505.5000, L3410.9992 #### [facility] [address] [place], [address] Cholesterol in VLDL [Mass/Vol] 14 mg/dL Normal 5-40 [facility] Comment on above: Performed By: #### L 505.5000, L3410.9992 #### [facility] [address] [place], [address] Triglyceride [Mass/Vol] 69 mg/dL Normal [facility] Comment on above: Result Comment: The drugs N-Acetylcysteine and Metamizole may falsely depress this assay. Serum Triglycerides Reference Interval Normal <150 mg/dL Borderline high 150 - 199 mg/dL High 200 - 499 mg/dL Very High > or = 500 mg/dL Performed By: #### L 505.5000, L3410.9992 #### [facility] [address] [place], [address] Microalb:Creat Ratio,Random URon 12-21-2024 Creatinine [Mass/Vol] 108.00 mg/dL Normal NO RAN GE EST. [facility] Comment on above: Performed By: #### L 505.5000, L3410.9992 #### [facility] [address] [place], [address] MALB:CRE 13.0 mg/g CRE Normal <30 mg/g CRE [facility] Comment on above: Performed By: #### L 505.5000, L3410.9992 #### [facility] [address] [place], [address] MICROALBUMIN,UR 14.0 mg/L Normal NO RANGE EST. [facility] Comment on above: Performed By: #### L 505.5000, L3410.9992 #### [facility] [address] [place], [address] Thyroid Stim Hormone (TSH)on 12-21-2024 TSH 2.010 uIU/mL Normal 0.358-3.740 [facility] Comment on above: Performed By: #### L 505.5000, L3410.9992 #### [facility] [address] [place], [address] Urinalysis, Completeon 12-21 RBC 0-5 SEEN Normal 0-5 [facility] Comment on above: Order Comment: 08825 0 TAPENTADOL URINE Performed By: #### L 505.5000, L3410.9992 #### [facility] [address] [place], [address] BACTERIA 0 SEEN Normal None Seen [facility] Comment on above: Order Comment: 91748 0 TAPENTADOL URINE Performed By: #### L 505.5000, L3410.9992 #### [facility] [address] [place], [address] EPI,SQUAMOUS 0 SEEN Normal 0-5 [facility] Comment on above: Order Comment: 90392 0 TAPENTADOL URINE Performed By: #### L 505.5000, L3410.9992 #### [facility] [address] [place], [address] Mucus Ql (Urine sed) 0 SEEN Normal [facility] Comment on above: Order Comment: 35346 0 TAPENTADOL URINE Performed By: #### L 505.5000, L3410.9992 #### [facility] [address] [place], [address] WBC 0 SEEN Normal 0-5 [facility] Comment on above: Order Comment: 22764 0 TAPENTADOL URINE Performed By: #### L 505.5000, L3410.9992 #### [facility] [address] [place], [address] Vitamin B12on 12-21-2024 Cobalamin (Vitamin B12) [Mass/Vol] 405 pg/mL Normal 211-911 [facility] Comment on above: Performed By: #### L 505.5000, L3410.9992 #### [facility] [address] [place], [address] Vitamin D,25 Hydroxyon 12-21 Vitamin D 25-OH 65.4 ng/mL Normal [facility] Comment on above: Result Comment: Juliann min D 25(OH) Status Range Deficiency <20 ng/mL (50nmol/L) Insufficiency 20 - 30 ng/mL (50 - 75 nmol/L) Sufficiency 30 - 100 ng/mL (75 - 250 nmol/L) Toxicity >100 ng/mL (>250 nmol/L) Performed By: #### L 505.5000, L3410.9992 #### [facility] [address] [place], [address] [facility] CNPN Telephone (CHRISTIE) CONG HARRISON ([id number]) 1965 M Date Time Provider Department 08/23/24 [...] As Of Date 08/23/2024 Noted Resolved Other emergency department manager (current) drug therapy [Z79.899]07/31/2020 Reflex sympathetic dystrophy of right leg - [facility]*05/15/2022 Complex regional pain syndrome type 1 of right *05/15/2022 Osteoarthritis of right knee - [facility] [M17.11] 05/15/2022 Psychogenic pain - [facility] [F45.42] 03/09/2023 Encounter Status:Closed by TOVA JUAREZ on 08/23/24 Normal [facility] CT CARDIAC SCORING WO IV CON TRASTon 08-15-2024 CT CARDIAC SCORING WO IV CONTRAST Interpreted By: Boubacar Barrett, STUDY: CT CARDIAC SCORING WO IV CONTRAST; 08/15/2024 5:01 pm INDICATION: Signs/Symptoms:CARDIAC SCREENING HIGH RISK CAD DM 2 W/ HYPERGLYCEMIA. ,E11.65 Type 2 diabetes mellitus with hyperglycemia (Multi) COMPARISON: None. ACCESSION NUMBER(S): [id number] ORDERING CLINICIAN: AFSANEH GREEN TECHNIQUE: Using prospective [...] coronary heart disease events. According to the [employer] Clinical Expert Consensus [...] Boubacar Barrett 08/20/2024 1:54 PM Dictation workstation: [id number] [facility] CNPNon 07-20-2024 CNPN Telephone (CHRISTIE) CONG HARRISON ([id number]) 1965 M Date Time Provider Department 07/20/24 ESTELA DAY During your visit today, we recorded the following information about you: Tova Juarez LPN 07/20/2024 2:30 PM Signed Spoke with pt re: need for new Pain Management Dr that will provide POR status and stated he would like to go to Dr. Roblero - [facility] [place] [facility]. Referral created and sent to [facility] (AFSHIN) team. Allergies As of Date: 07/20/2024 [...] As Of Date 07/20/2024 Noted Resolved Other emergency department manager (current) drug therapy [Z79.899]07/31/2020 Reflex sympathetic dystrophy of right leg - [facility]*05/15/2022 Complex regional pain syndrome type 1 of right *05/15/2022 Osteoarthritis of right knee - [facility] [M17.11] 05/15/2022 Psychogenic pain - [facility] [F45.42] 03/09/2023 Encounter Status:Closed by TOVA JUAREZ on 07/20/24 [facility] Keith 06-28-2024 GARTH Telephone (CHRISTIE) CONG HARRISON ([id number]) 1965 M Date Time Provider Department 06/28/24 ESTELA DAY During your visit today, we recorded the following information about you: Tova Juarez LPN 06/28/2024 10:41 AM Signed Renewal PA for cynthiaantik submitted on CMM to [facility] . Tova Juarez LPN 06/28/2024 3:30 PM [...] As Of Date 06/28/2024 Noted Resolved Other custodial (current) drug therapy [Z79.899]07/31/2020 Reflex sympathetic dystrophy of right leg - [facility]*05/15/2022 Complex regional pain syndrome type 1 of right *05/15/2022 Osteoarthritis of right knee - [facility] [M17.11] 05/15/2022 Psychogenic pain - [facility] [F45.42] 03/09/2023 Encounter Status:Closed by TOVA JUAREZ on 06/28/24 [facility] Keith 06-25-2024 GARTH Telephone (PAIMER) CONG HARRISON ([id number]) 1965 M Date Time Provider Department 06/25/24 RORY CSHULTZ During your visit today, we recorded the following information about you: Fred Jean RN 06/25/2024 11:13 AM Signed LM on regarding form being mailed out to change POR with [facility]. 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 [Z79.899]07/31/2020 Reflex sympathetic dystrophy of right leg - [facility]*05/15/2022 Complex regional pain syndrome type 1 of right *05/15/2022 Osteoarthritis of right knee - [facility] [M17.11] 05/15/2022 Psychogenic pain - [facility] [F45.42] 03/09/2023 Encounter Status:Closed by FRED JEAN on 06/25/24 Normal [facility] CBC W/Diff, Automatedon 05-31 Absolute Lymph 2.17 X10 3/uL Normal 0.83-4.51 [facility] Comment on above: Performed By: #### L 503.0105, L501.9520, L500.4100, L500.4050, L501.9985, L506.1000, L100.0100 #### [facility] [address] [place], [address] Absolute Neut 7.4 X10 3/uL Normal 2.0-7.7 [facility] Comment on above: Performed By: #### L 503.0105, L501.9520, L500.4100, L500.4050, L501.9985, L506.1000, L100.0100 #### [facility] [address] [place], [address] Basophils/100 WBC (Bld) 0.7 % Normal 0-1 [facility] Comment on above: Performed By: #### L 503.0105, L501.9520, L500.4100, L500.4050, L501.9985, L506.1000, L100.0100 #### [facility] [address] [place], [address] Eosinophils/100 WBC (Bld) 0.9 % Normal 0-5 [facility] Comment on above: Performed By: #### L 503.0105, L501.9520, L500.4100, L500.4050, L501.9985, L506.1000, L100.0100 #### [facility] [address] [place], [address] Erythrocyte distribution width (RBC) [Ratio] 12.8 % Normal 11.6-14.6 [facility] Comment on above: Performed By: #### L 503.0105, L501.9520, L500.4100, L500.4050, L501.9985, L506.1000, L100.0100 #### [facility] [address] [place], [address] Hematocrit (Bld) [Volume fraction] 42.9 % Normal 40-54 [facility] Comment on above: Performed By: #### L 503.0105, L501.9520, L500.4100, L500.4050, L501.9985, L506.1000, L100.0100 #### [facility] [address] [place], [address] Hemoglobin (Bld) [Mass/Vol] 14.3 g/dL Normal 13.0-16.5 [facility] Comment on above: Performed By: #### L 503.0105, L501.9520, L500.4100, L500.4050, L501.9985, L506.1000, L100.0100 #### [facility] [address] [place], [address] IG% 0.400 Normal 0.0-0.9 [facility] Comment on above: Result Comment: IG% - Immature Granulocytes (promyelocytes, myelocytes and metamyelocytes) > 1% indicates that a LEFT SHIFT is Present. Performed By: #### L 503.0105, L501.9520, L500.4100, L500.4050, L501.9985, L506.1000, L100.0100 #### [facility] [address] [place], [address] Lymphocytes/100 WBC (Bld) 20.6 % Normal 19-41 [facility] Comment on above: Performed By: #### L 503.0105, L501.9520, L500.4100, L500.4050, L501.9985, L506.1000, L100.0100 #### [facility] [address] [place], [address] MCH (RBC) [Entitic mass] 29.1 pg Normal 27.0-32.0 [facility] Comment on above: Performed By: #### L 503.0105, L501.9520, L500.4100, L500.4050, L501.9985, L506.1000, L100.0100 #### [facility] [address] [place], [address] MCHC (RBC) [Mass/Vol] 33.3 g/dL Normal 32-36 [facility] Comment on above: Performed By: #### L 503.0105, L501.9520, L500.4100, L500.4050, L501.9985, L506.1000, L100.0100 #### [facility] [address] [place], [address] MCV (RBC) [Entitic vol] 87.4 fL Normal 80-94 [facility] Comment on above: Performed By: #### L 503.0105, L501.9520, L500.4100, L500.4050, L501.9985, L506.1000, L100.0100 #### [facility] [address] [place], [address] Monocytes/100 WBC (Bld) 6.8 % Normal 0-10 [facility] Comment on above: Performed By: #### L 503.0105, L501.9520, L500.4100, L500.4050, L501.9985, L506.1000, L100.0100 #### [facility] [address] [place], [address] Neutrophils/100 WBC (Bld) 70.6 % High 47-70 [facility] Comment on above: Performed By: #### L 503.0105, L501.9520, L500.4100, L500.4050, L501.9985, L506.1000, L100.0100 #### [facility] [address] [place], [address] Nucleated RBC (Bld) [#/Vol] 0 10*3/uL Normal 0-5 [facility] Comment on above: Performed By: #### L 503.0105, L501.9520, L500.4100, L500.4050, L501.9985, L506.1000, L100.0100 #### [facility] [address] [place], [address] Platelet mean volume (Bld) [Entitic vol] 9.6 fL Normal 6.2-12.0 [facility] Comment on above: Performed By: #### L 503.0105, L501.9520, L500.4100, L500.4050, L501.9985, L506.1000, L100.0100 #### [facility] [address] [place], [address] Platelets (Bld) [#/Vol] 378 10*3/uL Normal 150-450 [facility] Comment on above: Performed By: #### L 503.0105, L501.9520, L500.4100, L500.4050, L501.9985, L506.1000, L100.0100 #### [facility] [address] [place], [address] RBC (Bld) [#/Vol] 4.91 10*6/uL Normal 4.6-6.2 [facility] Comment on above: Performed By: #### L 503.0105, L501.9520, L500.4100, L500.4050, L501.9985, L506.1000, L100.0100 #### [facility] [address] [place], [address] RDW SD 40.5 fl Normal 35.1-43.9 [facility] Comment on above: Performed By: #### L 503.0105, L501.9520, L500.4100, L500.4050, L501.9985, L506.1000, L100.0100 #### [facility] [address] [place], [address] WBC (Bld) [#/Vol] 10.5 10*3/uL Normal 4.4-11.0 [facility] Comment on above: Performed By: #### L 503.0105, L501.9520, L500.4100, L500.4050, L501.9985, L506.1000, L100.0100 #### [facility] [address] [place], [address] [facility] 06-15-2024 Albumin [Mass/Vol] 3.5 g/dL Normal 3.2-5.0 [facility] Comment on above: Performed By: #### L 503.0105, L501.9520, L500.4100, L500.4050, L501.9985, L506.1000, L100.0100 #### [facility] [address] [place], [address] Albumin/Globulin [Mass ratio] 0.9 {ratio} Normal 0.9-2.4 [facility] Comment on above: Performed By: #### L 503.0105, L501.9520, L500.4100, L500.4050, L501.9985, L506.1000, L100.0100 #### [facility] [address] [place], [address] ALK P 117 U/L Normal 45-117 [facility] Comment on above: Performed By: #### L 503.0105, L501.9520, L500.4100, L500.4050, L501.9985, L506.1000, L100.0100 #### [facility] [address] [place], [address] ALT [Catalytic activity/Vol] 28 U/L Normal 16-61 [facility] Comment on above: Performed By: #### L 503.0105, L501.9520, L500.4100, L500.4050, L501.9985, L506.1000, L100.0100 #### [facility] [address] [place], [address] AST [Catalytic activity/Vol] 14 U/L Low 15-37 [facility] Comment on above: Performed By: #### L 503.0105, L501.9520, L500.4100, L500.4050, L501.9985, L506.1000, L100.0100 #### [facility] [address] [place], [address] Bilirubin [Mass/Vol] 0.60 mg/dL Normal 0.20-1.00 [facility] Comment on above: Result Comment: For patients on eltrombopag therapy, use of Dimension [place] TBIL is not recommended. Performed By: #### L 503.0105, L501.9520, L500.4100, L500.4050, L501.9985, L506.1000, L100.0100 #### [facility] [address] [place], [address] BUN/CRE 14.8 RATIO Normal 10-20 [facility] Comment on above: Performed By: #### L 503.0105, L501.9520, L500.4100, L500.4050, L501.9985, L506.1000, L100.0100 #### [facility] [address] [place], [address] CA,Total 8.8 mg/dL Normal 8.5-10.1 [facility] Comment on above: Performed By: #### L 503.0105, L501.9520, L500.4100, L500.4050, L501.9985, L506.1000, L100.0100 #### [facility] [address] [place], [address] Chloride [Moles/Vol] 101 mmol/L Normal 98-107 [facility] Comment on above: Performed By: #### L 503.0105, L501.9520, L500.4100, L500.4050, L501.9985, L506.1000, L100.0100 #### [facility] [address] [place], [address] CO2 [Moles/Vol] 28.0 mmol/L Normal 21.0-32.0 [facility] Comment on above: Performed By: #### L 503.0105, L501.9520, L500.4100, L500.4050, L501.9985, L506.1000, L100.0100 #### [facility] [address] [place], [address] Creatinine [Mass/Vol] 0.88 mg/dL Normal 0.70-1.30 [facility] Comment on above: Result Comment: The validity of the calculated GFR GFRAA in patients over 70 years has not been determined. Clinical correlation is essential. Performed By: #### L 503.0105, L501.9520, L500.4100, L500.4050, L501.9985, L506.1000, L100.0100 #### [facility] [address] [place], [address] EST GFR - AA 114 mL/min Normal >60 [facility] Comment on above: Result Comment: Afri can Ivorian GFR Calc Performed By: #### L 503.0105, L501.9520, L500.4100, L500.4050, L501.9985, L506.1000, L100.0100 #### [facility] [address] [place], [address] GAP 6 Normal 5-15 [facility] Comment on above: Performed By: #### L 503.0105, L501.9520, L500.4100, L500.4050, L501.9985, L506.1000, L100.0100 #### [facility] [address] [place], [address] GFR/1.73 sq M.predicted among non-blacks MDRD (S/P/Bld) [Vol rate/Area] 95 mL/min/{1.73_m2} Normal >60 [facility] Comment on above: Result Comment: Non- GFR Calc Performed By: #### L 503.0105, L501.9520, L500.4100, L500.4050, L501.9985, L506.1000, L100.0100 #### [facility] [address] [place], [address] Globulin (S) [Mass/Vol] 3.8 g/dL Normal 2.2-4.2 [facility] Comment on above: Performed By: #### L 503.0105, L501.9520, L500.4100, L500.4050, L501.9985, L506.1000, L100.0100 #### [facility] [address] [place], [address] Glucose [Mass/Vol] 286 mg/dL High 74-106 [facility] Comment on above: Result Comment: Gluc ose result greater than or equal to 200 mg/dL suggests DIABETES MELLITUS per A.D.A. criteria. Performed By: #### L 503.0105, L501.9520, L500.4100, L500.4050, L501.9985, L506.1000, L100.0100 #### [facility] [address] [place], [address] Potassium [Moles/Vol] 4.1 mmol/L Normal 3.5-5.1 [facility] Comment on above: Performed By: #### L 503.0105, L501.9520, L500.4100, L500.4050, L501.9985, L506.1000, L100.0100 #### [facility] [address] [place], [address] Sodium [Moles/Vol] 135 mmol/L Low 136-145 [facility] Comment on above: Performed By: #### L 503.0105, L501.9520, L500.4100, L500.4050, L501.9985, L506.1000, L100.0100 #### [facility] [address] [place], [address] T PROT 7.3 g/dL Normal 6.4-8.2 [facility] Comment on above: Performed By: #### L 503.0105, L501.9520, L500.4100, L500.4050, L501.9985, L506.1000, L100.0100 #### [facility] [address] [place], [address] Urea nitrogen [Mass/Vol] 13 mg/dL Normal 7-18 [facility] Comment on above: Performed By: #### L 503.0105, L501.9520, L500.4100, L500.4050, L501.9985, L506.1000, L100.0100 #### [facility] [address] [place], [address] Hemoglobin A1con 06-15-2024 HbA1c (Bld) [Mass fraction] 10.5 % High 3.8-5.6 [facility] Comment on above: Result Comment: Norm al < 5.7 % Prediabetic 5.7 - 6.4 % Diabetic >or= 6.5 % Please note range changes. Performed By: #### L 503.0105, L501.9520, L500.4100, L500.4050, L501.9985, L506.1000, L100.0100 #### [facility] [address] [place], [address] Lipid Profileon 06-15-2024 Cholesterol [Mass/Vol] 134 mg/dL Normal 200 [facility] Comment on above: Result Comment: <200 mg/dL Desirable 200-240 mg/dL Borderline >240 mg/dL High Risk Performed By: #### L 503.0105, L501.9520, L500.4100, L500.4050, L501.9985, L506.1000, L100.0100 #### [facility] [address] [place], [address] Cholesterol in HDL [Mass/Vol] 44 mg/dL Normal [facility] Comment on above: Result Comment: The drugs N-Acetylcysteine and Metamizole may falsely depress this assay. Reference Range HDL <40 mg/dL Low HDL Cholesterol HDL >or= 60 mg/dL High HDL Cholesterol Performed By: #### L 503.0105, L501.9520, L500.4100, L500.4050, L501.9985, L506.1000, L100.0100 #### [facility] [address] [place], [address] Cholesterol in LDL [Mass/Vol] 77 mg/dL Normal 0-130 [facility] Comment on above: Performed By: #### L 503.0105, L501.9520, L500.4100, L500.4050, L501.9985, L506.1000, L100.0100 #### [facility] [address] [place], [address] Cholesterol in VLDL [Mass/Vol] 13 mg/dL Normal 5-40 [facility] Comment on above: Performed By: #### L 503.0105, L501.9520, L500.4100, L500.4050, L501.9985, L506.1000, L100.0100 #### [facility] [address] [place], [address] Triglyceride [Mass/Vol] 65 mg/dL Normal [facility] Comment on above: Result Comment: The drugs N-Acetylcysteine and Metamizole may falsely depress this assay. Serum Triglycerides Reference Interval Normal <150 mg/dL Borderline high 150 - 199 mg/dL High 200 - 499 mg/dL Very High > or = 500 mg/dL Performed By: #### L 503.0105, L501.9520, L500.4100, L500.4050, L501.9985, L506.1000, L100.0100 #### [facility] [address] [place], [place], [id number] (749) Thyroid Stim Hormone (TSH)on 06-15-2024 TSH 1.610 uIU/mL Normal 0.358-3.740 [facility] Comment on above: Performed By: #### L 503.0105, L501.9520, L500.4100, L500.4050, L501.9985, L506.1000, L100.0100 #### [facility] [address] [place], [address] Vitamin B12on 06-15-2024 Cobalamin (Vitamin B12) [Mass/Vol] 1740 pg/mL High 211-911 [facility] Comment on above: Performed By: #### L 503.0105, L501.9520, L500.4100, L500.4050, L501.9985, L506.1000, L100.0100 #### [facility] [address] [place], [address] Vitamin D,25 Hydroxyon 06-15 Vitamin D 25-OH 37.4 ng/mL Normal [facility] Comment on above: Result Comment: Juliann min D 25(OH) Status Range Deficiency <20 ng/mL (50nmol/L) Insufficiency 20 - 30 ng/mL (50 - 75 nmol/L) Sufficiency 30 - 100 ng/mL (75 - 250 nmol/L) Toxicity >100 ng/mL (>250 nmol/L) Performed By: #### L 503.0105, L501.9520, L500.4100, L500.4050, L501.9985, L506.1000, L100.0100 #### [facility] [address] [place], [address] CNOVon 05-25-2024 CNOV Office Visit (CHRISTIE ) CONG HARRISON ([id number]) 1965 M Date Time Provider Department 05/25/24 [...] being seen for left leg pain - [facility] Patient was last seen on: 04/04/24 At [...] type 1 of left lower extremity - [facility] - ICD9: 337.22, ICD10: G90.522 (primary diagnosis) [...] have this reprogrammed (more content not included)... [facility] CONG HARRISON ([id number]) 1965 M Date Time Provider Department 05/02/24 5:30 PM ASHUTOSH HENNESSY WSTR During your visit today, we recorded the following information about you: Temperature Pulse Respiration Blood pressure 97.6 degrees 96/minute 18/minute 160/88 Weight 87.4 kg Ashutosh Hennessy, DAVION.NUTRITION WORKER 05/02/2024 6:50 PM Signed Subjective HPI Nontoxic-appearing [...] cough. Due (more content not included)... Normal [facility] Keith 05-02-2024 [facility] ([id number]) 1965 M Date Time Provider Department 05/02/24 ASHUTOSH HENNESSY [facility] During your visit today, we recorded the following information about you: Ashutosh Hennessy APRN.CNP 05/02/2024 6:09 PM Signed Please inform patient that chest x-ray is unremarkable. Prescription sent to [facility] pharmacy. Ashutosh Hennessy APRN.Joselito Lugo 05/02/2024 6:43 [...] As Of Date 05/02/2024 Noted Resolved Other custodial (current) drug therapy [Z79.899]07/31/2020 Reflex sympathetic dystrophy of right leg - [facility]*05/15/2022 Complex regional pain syndrome type 1 of right *05/15/2022 Osteoarthritis of right knee - [facility] [M17.11] 05/15/2022 Psychogenic pain - [facility] [F45.42] 03/09/2023 Encounter Status:Closed by JOSELITO RUFFIN on 05/02/24 Normal [facility] XR CHEST 2V FRONTAL/LATon XR CHEST 2V [...] thoracic spine.. IMPRESSION: No acute radiographic abnormality. Dominatrix: HARJIT Transcribe Date/Time: May 02 2024 6:02P Dictated by : SIDNEY RUSSO MD This examination was interpreted and the report reviewed and electronically signed by: SIDNEY RUSSO MD on May 02 2024 6:03PM EST [id number] Normal [facility] XR Chest PA and Lateralon IMPRESSION: No acute radiographic abnormality. Dominatrix: HARJIT Transcribe Date/Time: May 02 2024 6:02P Dictated by : SIDNEY RUSSO MD This examination was interpreted and the report reviewed and electronically signed by: SIDNEY RUSSO MD on May 02 2024 6:03PM [facility] DIVISION OF RADIOLOGY * * *Final Report* [...] the thoracic spine.. DIVISION OF RADIOLOGY Provider, [facility] Johanna felix [place] - 05/02/2024 * * *Final Report* * [...] spine.. IMPRESSION IMPRESSION: No acute radiographic abnormality. Dominatrix: HARJIT Transcribe Date/Time: May 02 2024 6:02P Dictated by : SIDNEY RUSSO MD This examination was interpreted and the report reviewed and electronically signed by: SIDNEY RUSSO MD on May 02 2024 6:03PM EST [facility] Radiology Study observation (narrative) [facility] XR Chest PA and LateralOrder ed By: Ccf Provider on 05-02-2024 [facility] 04-26-2024 CNPN Telephone (CHRISTIE) CONG HARRISON ([id number]) 1965 M Date Time Provider Department 04/26/24 ESTELA DAY During your visit today, we recorded the following information about you: Tova Juarez LPN 04/26/2024 11:16 AM Signed VM received from pt requesting a C9 for the (approved) scooter carrier and cover. Spoke with Juanis Morton who suggested calling [employer] for actual equipment code. Called [employer], left message for Rep to send the codes or call back with information to fill out C9. Tova Juarez LPN 05/08/2024 5:28 PM Signed Spoke with @ [employer] after not hearing from them, asked if there was a decision made on what car carrier and cover were needed for the scooter, stated they were not sure, will look into this and return the call. Direct number given. Tova Juarez LPN 05/23/2024 11:16 AM Signed No response from [employer] or pt to proceed with C9 for car carrier for scooter. Spoke with pt who stated I haven't heard anything from them either Called and spoke with [employer] Ralph Burgess, stated pt told us he is almost done with the lease on his car and will be getting another one soon, so we didn't want to proceed until this until pt has his next car, to make sure of getting the correct carrier. Explained pt never told us this was the holdup. Discussed that [employer] will generate a C9 and send it [...] As Of Date 04/26/2024 Noted Resolved Other emergency department manager (current) drug therapy [Z79.899]07/31/2020 Reflex sympathetic dystrophy of right leg - [facility]*05/15/2022 Complex regional pain syndrome type 1 of right *05/15/2022 Osteoarthritis of right knee - [facility] [M17.11] 05/15/2022 Psychogenic pain - [facility] [F45.42] 03/09/2023 Encounter Status:Closed by TOVA JUAREZ on 05/23/24 [facility] CNOVon 04-04-2024 CNOV Office Visit (PAMMJK ) CONG HARRISON ([id number]) 1965 M Date Time Provider Department 04/04/24 [...] being seen for left leg pain - [facility] Patient was last seen on: 02/07/24 At [...] lose weight. F (more content not included)... [facility] Keith 04-04-2024 GARTH Telephone (CHRISTIE) CONG HARRISON ([id number]) 1965 M Date Time Provider Department 04/04/24 DAWIT HERNANDEZ During your visit today, we recorded the following information about you: Tova Juarez LPN 04/04/2024 9:38 AM Sigrid Frank here today for FUOV asking if we heard from [employer] or the [employer] about his WC. Spoke with Juanis ([facility]) who stated we are trying to come to an agreement with the [employer] [place] on the correct type of chair [...] As Of Date 04/04/2024 Noted Resolved Other emergency department manager (current) drug therapy [Z79.899]07/31/2020 Reflex sympathetic dystrophy of right leg - [facility]*05/15/2022 Complex regional pain syndrome type 1 of right *05/15/2022 Osteoarthritis of right knee - [facility] [M17.11] 05/15/2022 Psychogenic pain - [facility] [F45.42] 03/09/2023 Encounter Status:Closed by TOVA JUAREZ on 04/04/24 [facility] Keith 03-19-2024 BRETN Telephone (VICENTE) CONG HARRISON ([id number]) 1965 M Date Time Provider Department 03/19/24 ESTELA DAY During your visit today, we recorded the following information about you: Tuyet Randolph RN 03/19/2024 1:13 PM Signed Patient called and stated that nucynta script was sent to the wrong pharmacy. Called and cancelled script [facility] pharmacy. New script attached to go to [facility]. SANKET Billy Michael R, PA-C 03/19/2024 [...] As Of Date 03/19/2024 Noted Resolved Other custodial (current) drug therapy [Z79.899]07/31/2020 Reflex sympathetic dystrophy of right leg - [facility]*05/15/2022 Complex regional pain syndrome of left lower ex*05/15/2022 Osteoarthritis of right knee - [facility] [M17.11] 05/15/2022 Psychogenic pain - [facility] [F45.42] 03/09/2023 Prescriptions ordered this encounter Disp Refills Start End TAPENTADOL 100 MG TABLET 120 * 0 03/19/2024 04/18/2024 Cmt: [id number] Route: ORAL Sig: Take 1 tablet by mouth every 6 hours as needed for up to 30 days. Medications Discontinued During This Encounter Prescriptions - tapentadol (NUCYNTA) 100 mg tab (Discontinued) Take 1 tablet by mouth every 6 hours as needed for up to 30 days. Encounter Status:Closed by ESTELA DAY on 03/19/24 [facility] Zachary 02-07-2024 [facility] Office Visit (CHRISTIE ) CONG HARRISON ([id number]) 1965 M Date Time Provider Department 02/07/24 8:30 AM ESTELA DAY During your visit today, we recorded the following information about you: Temperature Pulse Respiration Blood pressure 97.3 degrees 84/minute 20/minute 139/73 Weight Height 88.9 kg 1.702 m Estela Day PA-C 02/07/2024 8:41 AM Signed This note was created using [employer]. Subjective Cong Harrison is a 59 year old male. The patient primarily being seen for left leg pain - [facility] Patient was last seen on: 12/27/23 At [...] if you need to have this reprogrammed [phone]. He will continue with core strengthening and range of motion exercises. Follow-up in the office in [address] Hernandez 2. Complex regional pain syndrome type 1 (more content not included)... [facility] CNOVon 12-27-2023 CNOV Office Visit (PAMMJK ) CONG HARRISON ([id number]) 1965 M Date Time Provider Department 12/27/23 8:30 AM ESTELA DAY During your visit today, we recorded the following information about you: Temperature Pulse Respiration Blood pressure 97.5 degrees 93/minute 20/minute 125/76 Weight Height 88.9 kg 1.702 m Estela Day PA-C 12/27/2023 8:56 AM Signed This note was created using [employer]. Subjective Cong Harrison is a 58 year old male. The patient primarily being seen for left leg pain - [facility] Patient was last seen on: 11/15/23 At [...] He is worried about his medications because [facility]'s payment system is currently down and he [...] is cooperati (more content not included)... Normal [facility] CNOVon 11-15-2023 [facility] Office Visit (CHRISTIE ) CONG HARRISON ([id number]) 1965 M Date Time Provider Department 11/15/23 8:30 AM ESTELA DAY During your visit today, we recorded the following information about you: Temperature Pulse Respiration Blood pressure 97.6 degrees 108/minute 18/minute 135/84 Estela Day PA-C 11/15/2023 9:00 AM Signed This note was created using [employer]. Subjective Cong Harrison is a 58 year old male. The patient primarily being seen for left leg pain [facility] Patient was last seen on: 10/05/23 At [...] if you need to have this reprogrammed [phone]. He will continue with (more content not included)... [facility] Office Visit (PAMMJK ) CONG HARRISON ([id number]) 1965 M Date Time Provider Department 10/05/23 8:15 AM ESTELA DAY During your visit today, we recorded the following information about you: Temperature Pulse Respiration Blood pressure 97.2 degrees 120/minute 18/minute 120/77 Estela Day, KALIC 10/05/2023 8:25 AM Signed This note was created using [employer]. Subjective Cong Harrison is a 58 year old male. The patient primarily being seen for left leg pain-[facility] Patient was last seen on: 08/24/23 [...] will continue with (more content not included)... [facility] Keith 09-16-2023 CNPN Telephone (CHRISTIE) CONG HARRISON ([id number]) 1965 M Date Time Provider Department 09/16/23 ESTELA DAY During your visit today, we recorded the following information about you: Tova Juarez LPN 09/16/2023 2:14 PM Signed Process for [facility] coverage of powerchair request started and per [facility], needs a OT Eval 1st before request can be made for powerchair. Also stated [facility] will decide on powerchair company once request is made. Explained to pt who requested OT Eval be done at [facility] (fax for order [phone]). Just needs order signed. Estela Day PA-C 09/16/2023 2:22 PM Signed Noted, and signed. Tova Juarez LPN 09/20/2023 11:11 AM Signed Order with approval was faxed to [facility] per pt request, 09/16/23 @ 1552. Pt informed. Estela Day PA-C 09/20/2023 12:41 PM Signed Call was received from [facility] that they need an order for PT for the wheelchair evaluation, not OT. The order was changed and faxed to [phone]. Estela Day PA-C 09/20/2023 12:41 PM Signed [...] osteoarthritis of right knee [M17.5] Order(s):CONSULT TO WALLPAPER HANGER [19991108] Order #: [id number]: 1 FUTURE CONSULT TO PHYSICAL THERAPY [9032] Order #: [id number]: 1 FUTURE Prescriptions as of 09/28/2023 - [...] As Of Date 09/16/2023 Noted Resolved Other emergency department manager (current) drug therapy [Z79.899]07/31/2020 Reflex sympathetic dystrophy of right leg - [facility]*05/15/2022 Complex regional pain syndrome of left lower ex*05/15/2022 Osteoarthritis of right knee - [facility] [M17.11] 05/15/2022 Psychogenic pain - [facility] [F45.42] 03/09/2023 Encounter Status:Closed by TOVA JUAREZ on 09/20/23 Normal [facility] FLUOROSCOPY IN OR/PAIN MGTon 12-24-2019 FLUOROSCOPY IN [...] By: CLARK DE LOS SANTOS M.D. Normal [facility] MRSA PCRon 12-24-2019 MRSA PCR Negative Normal NEGATIVE [facility] Comment on above: Order Comment: Campu s: M Result Comment: PLEA SE NOTE: TESTING DONE BY PCR TECHNOLOGY. Performed By: #### L [id number] #### [facility] [address] [place] [address] SA PCR Negative Normal NEGATIVE [facility] Comment on above: Order Comment: Ibrahimau s: M Result Comment: PLEA SE NOTE: TESTING DONE BY PCR TECHNOLOG[employer]. Performed By: #### L [id number] #### [facility] [address] [place] [address] OR.OPRPTon 12-24-2019 Operative Report Normal [facility] OR.OPRPT [facility] Patient Name: CONG HARRISON [address] [place] [address] Date of : [address] [address] Unit Number: [id number] Operative Report Patient Status: REG [place] Attending Doctor: Ashutosh Hopkins DO Service Date: 12/24/19 1228 Operative Report Procedure Date: 12/24/19 Attending Physician: Ashutosh Hopkins DO Procedure: Preoperative Diagnosis: 1. Nonfunctioning spinal cord stimulator system 2. Reflect sympathetic dystrophy Postoperative Diagnosis: Same Procedure Type: 1. T12 partial laminectomy for removal of spinal cord stimulator lead 2. Implant Tripole 16 spinal cord stimulator lead ([employer]) 3. Program and activate spinal cord stimulator [...] Ashutosh Hopkins DO Verified/Reviewed by 12/24/19 1245 [facility] [place]ridge AMYLASE ([id number])Ordered By: Chavez Sultana on 03-12-2009 Amylase [Catalytic activity/Vol] 49 U/L Normal 31-124 [facility] Work Phone: Comment on above: Please note refere nce interval change PATIENT NOT FASTINGP ERFORMED BY: [facility] Center[facility]izxnb4997 [facility] [id number] CBC with manual diff ([id number]) Ordered By: Hollie Macdonaldstephani on 03-12-2009 Basophils (Bld) [#/Vol] 0.1 {x10E3/uL} Normal 0.0-0.2 [facility] Work Phone: Comment on above: PATIENT NOT FASTINGC linical Information: ADD DRAW FEE 584129 ADD J 31913 PERFORMED BY: MINE LabSean [place] [id number] [facility] [id number] Basophils (Bld) [#/Vol] 0.1 10*3/uL Normal 0.0-0.2 [facility]; [facility] Work Phone: Comment on above: PATIENT NOT FASTINGC linical Information: ADD DRAW FEE 036636 ADD J 91730 PERFORMED BY: [facility]6[address] [facility] [id number] Basophils/100 WBC (Bld) 1 % Normal 0-3 [facility] Work Phone: Comment on above: PATIENT NOT FASTINGC linical Information: ADD DRAW FEE 763048 ADD J 11435 PERFORMED BY: [facility]6[address] [facility] [id number] Eosinophils (Bld) [#/Vol] 0.0 {x10E3/uL} Normal 0.0-0.4 [facility] Work Phone: Comment on above: PATIENT NOT FASTINGC linical Information: ADD DRAW FEE 101659 ADD J 09111 PERFORMED BY: [facility]6[address] [facility] [id number] Eosinophils (Bld) [#/Vol] 0.0 10*3/uL Normal 0.0-0.4 [facility]; [facility] Work Phone: Comment on above: PATIENT NOT FASTINGC linical Information: ADD DRAW FEE 244222 ADD J 52549 PERFORMED BY: [facility]6[address] [facility] [id number] Eosinophils/100 WBC (Bld) 0 % Normal 0-7 [facility] Work Phone: Comment on above: PATIENT NOT FASTINGC linical Information: ADD DRAW FEE 095103 ADD J 55086 PERFORMED BY: [address] [id number] Erythrocyte distribution width (RBC) [Ratio] 15.9 % Abnormal 11.7-15.0 [facility] Work Phone: Comment on above: PATIENT NOT FASTINGC linical Information: ADD DRAW FEE 217643 ADD J 46405 PERFORMED BY: [address] [id number] Hematocrit (Bld) [Volume fraction] 42.3 % Normal 36.0-50.0 [facility] Work Phone: Comment on above: PATIENT NOT FASTINGC linical Information: ADD DRAW FEE 885970 ADD J 87804 PERFORMED BY: [place] [id number] [facility] [id number] Hemoglobin (Bld) [Mass/Vol] 14.4 g/dL Normal 12.5-17.0 [facility] Work Phone: Comment on above: PATIENT NOT FASTINGC linical Information: ADD DRAW FEE 317599 ADD J 36869 PERFORMED BY: [place] [id number] [facility] [id number] Lymphocytes (Bld) [#/Vol] 1.6 {x10E3/uL} Normal 0.7-4.5 [facility] Work Phone: Comment on above: PATIENT NOT FASTINGC linical Information: ADD DRAW FEE 518330 ADD J 74845 PERFORMED BY: [address] [id number] Lymphocytes (Bld) [#/Vol] 1.6 10*3/uL Normal 0.7-4.5 [facility]; [facility] Work Phone: Comment on above: PATIENT NOT FASTINGC linical Information: ADD DRAW FEE 706963 ADD J 27520 PERFORMED BY: M[place] [id number] [facility] [id number] Lymphocytes/100 WBC (Bld) 14 % Normal 14-46 [facility] Work Phone: Comment on above: PATIENT NOT FASTINGC linical Information: ADD DRAW FEE 133230 [place] 91987 PERFORMED BY: MINE [address] [id number] MCH (RBC) [Entitic mass] 28.3 pg Normal 27.0-34.0 [facility] Work Phone: Comment on above: PATIENT NOT FASTINGC linical Information: ADD DRAW FEE 889706 ADD J 53406 PERFORMED BY: MINE [address] [id number] MCHC (RBC) [Mass/Vol] 34.1 g/dL Normal 32.0-36.0 [facility] Work Phone: Comment on above: PATIENT NOT FASTINGC linical Information: ADD DRAW FEE 326452 ADD J 15916 PERFORMED BY: MINE [address] [id number] MCV (RBC) [Entitic vol] 83 fL Normal 80-98 [facility] Work Phone: Comment on above: PATIENT NOT FASTINGC linical Information: ADD DRAW FEE 536688 ADD J 86509 PERFORMED BY: MINE [address] [id number] Monocytes (Bld) [#/Vol] 0.9 {x10E3/uL} Normal 0.1-1.0 [facility] Work Phone: Comment on above: PATIENT NOT FASTINGC linical Information: ADD DRAW FEE 402845 ADD J 40003 PERFORMED BY: [address] [id number] Monocytes (Bld) [#/Vol] 0.9 10*3/uL Normal 0.1-1.0 [facility]; [facility] Work Phone: Comment on above: PATIENT NOT FASTINGC linical Information: ADD DRAW FEE 438471 ADD J 27748 PERFORMED BY: [facility]6[address] [facility] [id number] Monocytes/100 WBC (Bld) 8 % Normal 4-13 [facility] Work Phone: Comment on above: PATIENT NOT FASTINGC linical Information: ADD DRAW FEE 481653 ADD J 34831 PERFORMED BY: [place] [id number] [facility] [id number] Neutrophils (Bld) [#/Vol] 8.7 {x10E3/uL} Abnormal 1.8-7.8 [facility] Work Phone: Comment on above: PATIENT NOT FASTINGC linical Information: ADD DRAW FEE 386062 ADD J 40406 PERFORMED BY: [place] [id number] [facility] [id number] Neutrophils (Bld) [#/Vol] 8.7 10*3/uL Abnormal 1.8-7.8 [facility]; [facility] Work Phone: Comment on above: PATIENT NOT FASTINGC linical Information: ADD DRAW FEE 800340 ADD J 98768 PERFORMED BY: [place] [id number] [facility] [id number] Neutrophils/100 WBC (Bld) 77 % Abnormal 40-74 [facility] Work Phone: Comment on above: PATIENT NOT FASTINGC linical Information: ADD DRAW FEE 915313 ADD J 66093 PERFORMED BY: Onzo[address] [id number] Platelets (Bld) [#/Vol] 342 {x10E3/uL} Normal 140-415 [...] NOT FASTINGC linical Information: ADD DRAW FEE 087034 ADD J 20216 PERFORMED BY: [facility]6[address] [facility] [id number] Platelets (Bld) [#/Vol] 342 10*3/uL Normal 140-415 [facility] Internal [facility]; [facility] Work Phone: Comment on [...] NOT FASTINGC linical Information: ADD DRAW FEE 535079 ADD J 28096 PERFORMED BY: [facility]6[address] [facility] [id number] RBC (Bld) [#/Vol] 5.11 {x10E6/uL} Normal 4.10-5.60 [facility] Work Phone: Comment on above: PATIENT NOT FASTINGC linical Information: ADD DRAW FEE 510885 ADD J 18895 PERFORMED BY: [facility]6[address] [facility] [id number] RBC (Bld) [#/Vol] 5.11 10*6/uL Normal 4.10-5.60 [facility] Internal Medicine; [facility] Work Phone: Comment on above: PATIENT NOT FASTINGC linical Information: ADD DRAW FEE 620179 ADD J 75099 PERFORMED BY: [facility]6[address] [facility] [id number] WBC (Bld) [#/Vol] 11.3 {x10E3/uL} Abnormal 4.0-10.5 [facility] Internal Medicine Work Phone: Comment on above: PATIENT NOT FASTINGC linical Information: ADD DRAW FEE 270397 ADD J 07216 PERFORMED BY: [facility]6[address] [facility] [id number] WBC (Bld) [#/Vol] 11.3 10*3/uL Abnormal 4.0-10.5 [facility] ensive Internal Medicine; [facility] Work Phone: Comment on above: PATIENT NOT FASTINGC linical Information: ADD DRAW FEE 698674 ADD J 07779 PERFORMED BY: MINE Mac6370 [address] RoadDublin [place] [id number] LIPASE (83113)Ordered By: Jaclyn Sultana on 03-12-2009 Lipase [Catalytic activity/Vol] 30 U/L Normal 0-59 [facility] Work Phone: Comment on above: PATIENT NOT FASTINGP ERFORMED BY: MINE LabKelsi OrrCzmyce2303 Rodas Roadblin [place] [id number] Metabolic Panel, Comprehensi ve (36437)Ordered By: Hollie Sultana on 03-12-2009 Albumin [Mass/Vol] 4.5 g/dL Normal 3.5-5.5 [facility] Work Phone: Comment on above: PATIENT NOT FASTINGP ERFORMED BY: MINE Orrlin[address] [facility] [id number] Albumin/Globulin [Mass ratio] 1.5 {ratio} Normal 1.1-2.5 [facility] Work Phone: Comment on above: PATIENT NOT FASTINGP ERFORMED BY: MINE Orrlin[address] [facility] [place] [id number] ALP [Catalytic activity/Vol] 102 [iU]/L Normal 25-150 [facility] Work Phone: Comment on above: PATIENT NOT FASTINGP ERFORMED BY: MINE LabKelsi OrrGmeksm[address] [facility] [id number] ALP [Catalytic activity/Vol] 102 U/L Normal 25-150 [facility]; [facility] Work Phone: Comment on above: PATIENT NOT FASTINGP ERFORMED BY: MINE LabKelsi OrrOgucqu[address] [facility] [place] [id number] ALT [Catalytic activity/Vol] 39 [iU]/L Normal 0-55 [facility] Work Phone: Comment on above: PATIENT NOT FASTINGP ERFORMED BY: MINE Orrlin6370 [address] RoadDublin [place] [id number] ALT [Catalytic activity/Vol] 39 U/L Normal 0-55 [facility]; [facility] Work Phone: Comment on above: PATIENT NOT FASTINGP ERFORMED BY: CB [facility] Gthjjm2654 [address] RoadDublin [place] [id number] AST [Catalytic activity/Vol] 23 [iU]/L Normal 0-40 [facility] Work Phone: Comment on above: PATIENT NOT FASTINGP ERFORMED BY: CB [facility] Rgzotq8517 [address] RoadDublin [place] [id number] AST [Catalytic activity/Vol] 23 U/L Normal 0-40 [facility]; [facility] Work Phone: Comment on above: PATIENT NOT FASTINGP ERFORMED BY: LabCo Uwaulj6908 [address] RoadDublin [place] [id number] Bilirubin [Mass/Vol] 0.5 mg/dL Normal 0.1-1.2 Comp rehensive Internal Medicine Work Phone: Comment on above: PATIENT NOT FASTINGP ERFORMED BY: LabCo Jnhhog1146 [address] RoadDublin [place] [id number] Calcium [Mass/Vol] 10.5 mg/dL Normal 8.5-10.6 [facility] Work Phone: Comment on above: PATIENT NOT FASTINGP ERFORMED BY: LabCo Lcpfpm5600 [address] RoadDublin [place] [id number] Chloride [Moles/Vol] 101 mmol/L Normal 97-108 Comp [facility] Work Phone: Comment on above: PATIENT NOT FASTINGP ERFORMED BY: CB [facility] Pssdhl7079 [address] RoadDublin [place] [id number] CO2 [Moles/Vol] 26 mmol/L Normal 20-32 [facility] Work Phone: Comment on above: PATIENT NOT FASTINGP ERFORMED BY: CB [facility] Heeuwm0325 [address] RoadDublin [place] [id number] Creatinine [Mass/Vol] 0.90 mg/dL Normal 0.76-1.27 [facility] Work Phone: Comment on above: PATIENT NOT FASTINGP ERFORMED BY: MINE Patrick Mac[address] [facility] [id number] GFR/1.73 sq M predicted among blacks MDRD [...] PATIENT NOT FASTINGP ERFORMED BY: MINE Maryam Cvyxpp9887 [facility] [id number] GFR/1.73 sq M.predicted MDRD (S/P/Bld) [Vol rate/Area] mL/min/{1.73_m2} Normal [facility] Work Phone: Comment on above: PATIENT NOT FASTINGP ERFORMED BY: MINE Maryamdayton Krokqq1554 [facility] [id number] Globulin (S) [Mass/Vol] 3.1 g/dL Normal 1.5-4.5 [facility] Work Phone: Comment on above: PATIENT NOT FASTINGP ERFORMED BY: MINE LabCo Dspnbu6805 [facility] [id number] Glucose [Mass/Vol] 94 mg/dL Normal 65-99 [facility] Work Phone: Comment on above: PATIENT NOT FASTINGP ERFORMED BY: MINE [facility] Wmtrni2758 [facility] [id number] Potassium [Moles/Vol] 4.0 mmol/L Normal 3.5-5.2 [facility] Internal [facility] Work Phone: Comment on above: PATIENT NOT FASTINGP ERFORMED BY: MINE [facility] Ivptmo1584 [address] RoadDublin [place] [id number] Protein [Mass/Vol] 7.6 g/dL Normal 6.0-8.5 [facility] Work Phone: Comment on above: PATIENT NOT FASTINGP ERFORMED BY: CB [facility] Vgofds6620 [address] RoadDublin [place] [id number] Sodium [Moles/Vol] 139 mmol/L Normal 135-145 [facility] Work Phone: Comment on above: PATIENT NOT FASTINGP ERFORMED BY: CB [facility] Izoeiv5881 [address] RoadDublin [place] [id number] Urea nitrogen [Mass/Vol] 13 mg/dL Normal 5- [facility] Work Phone: Comment on above: PATIENT NOT FASTINGP ERFORMED BY: CB [facility] Lqofaq4254 [address] RoadDublin [place] [id number] Urea nitrogen/Creatinine [Mass ratio] 14 mg/mg Normal 8- [facility] Work Phone: Comment on above: PATIENT NOT FASTINGP ERFORMED BY: CB [facility] Zpgldt7905 Rod[address] RoadDublin [place] [id number] Urinalysis, Office ([id number])Or dered By: Danna Miller on 03-12-2009 Bilirubin [...] [facility] Work Phone: Rapid Flu (13299 x 2)Ordered By: Tuyet Kyle on 03-10-2009 FLUAV Ag IA Ql (Throat) Negative Normal [facility] Work Phone: FLUAV Ag IA Ql (Throat) Negative Normal [facility]; [facility] Work Phone: Vital Signs Date Time Vital Sign Value Performing Clinician Facility 05-25-2024 08:09-0400 Body mass index (BMI) [Ratio] 30.38 kg/m2 Estela Day PA-C Work Phone: [facility] 05-25-2024 08:09-0400 Body weight 88 kg Estela Day PA-C Work Phone: [facility] 05-25-2024 08:09-0400 Diastolic blood pressure 70 mm[Hg] Estela Day PA-C Work Phone: [facility] 05-25-2024 08:09-0400 Heart rate 101 /min Estela Day PA-C Work Phone: [facility] 05-25-2024 08:09-0400 Respiratory rate 18 /min Estela Day PA-C Work Phone: [facility] 05-25-2024 08:09-0400 SaO2% (BldA) [Mass fraction] 99 % Estela Day PA-C Work Phone: [facility] 05-25-2024 08:09-0400 Systolic blood pressure 123 mm[Hg] Estela Day PA-C Work Phone: [facility] 05-02-2024 17:37-0400 Body mass index (BMI) [Ratio] 30.18 kg/m2 [facility] TEN PIN BOWLING CENTRE MANAGER.NUTRITION WORKER Work Phone: [facility] 05-02-2024 17:37-0400 Body temperature 97.59 [degF] [facility] TEN [employer] BOWL[employer] CENTRE MANAGER.NUTRITION WORKER Work Phone: [facility] 05-02-2024 17:37-0400 Body weight 87.[address] [facility] TEN PIN BOWLING CENTRE MANAGER.NUTRITION WORKER Work Phone: [facility] 05-02-2024 17:37-0400 Diastolic blood pressure 88 mm[Hg] [facility] TEN PIN BOWLING CENTRE MANAGER.NUTRITION WORKER Work Phone: [facility] 05-02-2024 17:37-0400 Heart rate 96 /min [facility] TEN PIN BOWLING CENTRE MANAGER.NUTRITION WORKER Work Phone: [facility] 05-02-2024 17:37-0400 Respiratory rate 18 /min [facility] TEN PIN BOWLING CENTRE MANAGER.NUTRITION WORKER Work Phone: [facility] 05-02-2024 17:37-0400 SaO2% (BldA) [Mass fraction] 98 % [facility] TEN PIN BOWLING CENTRE MANAGER.NUTRITION WORKER Work Phone: [facility] 05-02-2024 17:37-0400 Systolic blood pressure 160 mm[Hg] [facility] TEN PIN BOWLING CENTRE MANAGER.NUTRITION WORKER Work Phone: [facility] 04-04-2024 08:05-0400 Body height 170.2 cm Dawit Hernandez MD Work Phone: [facility] 04-04-2024 08:05-0400 Body mass index (BMI) [Ratio] 30.54 kg/m2 Dawit Hernandez MD Work Phone: [facility] 04-04-2024 08:05-0400 Body temperature 97.39 [degF] Dawit Hernandez MD Work Phone: [facility] 04-04-2024 08:05-0400 Body weight 88.45 kg Dawit Hernandez MD Work Phone: [facility] 04-04-2024 08:05-0400 Diastolic blood pressure 74 mm[Hg] Dawit Hernandez MD Work Phone: [facility] 04-04-2024 08:05-0400 Heart rate 101 /min Dawit Hernandez MD Work Phone: [facility] 04-04-2024 08:05-0400 Respiratory rate 20 /min Dawit Hernandez MD Work Phone: [facility] 04-04-2024 08:05-0400 SaO2% (BldA) [Mass fraction] 99 % Dawit Hernandez MD Work Phone: [facility] 04-04-2024 08:05-0400 Systolic blood pressure 124 mm[Hg] Dawit Hernandez MD Work Phone: [facility] 02-07-2024 08:17-0400 Body height 170.2 cm Estela PEPE-C Work Phone: [facility] 02-07-2024 08:17-0400 Body temperature 97.3 [degF] sEtela Day PA-C Work Phone: [facility] 02-07-2024 08:17-0400 Body weight 88.91 kg Estela PEPE-C Work Phone: [facility] 02-07-2024 08:17-0400 Diastolic blood pressure 73 mm[Hg] Estela Day PA-C Work Phone: [facility] 02-07-2024 08:17-0400 Heart rate 84 /min Estela Day PA-C Work Phone: [facility] 02-07-2024 08:17-0400 Respiratory rate 20 /min Estela Day PA-C Work Phone: [facility] 02-07-2024 08:17-0400 SaO2% (BldA) [Mass fraction] 99 % Estela Day PA-C Work Phone: [facility] 02-07-2024 08:17-0400 Systolic blood pressure 139 mm[Hg] Estela Day PA-C Work Phone: [facility] 12-27-2023 08:26-0500 Body height 170.2 cm Estela PEPE-C Work Phone: [facility] 12-27-2023 08:26-0500 Body temperature 97.5 [degF] Estela Day PA-C Work Phone: [facility] 12-27-2023 08:26-0500 Body weight 88.91 kg Estela Day PA-C Work Phone: [facility] 12-27-2023 08:26-0500 Diastolic blood pressure 76 mm[Hg] Estela Day PA-C Work Phone: [facility] 12-27-2023 08:26-0500 Heart rate 93 /min Estela Day PA-C Work Phone: [facility] 12-27-2023 08:26-0500 Respiratory rate 20 /min Estela Day PA-C Work Phone: [facility] 12-27-2023 08:26-0500 SaO2% (BldA) [Mass fraction] 97 % Estela Day PA-C Work Phone: [facility] 12-27-2023 08:26-0500 Systolic blood pressure 125 mm[Hg] Estela Day PA-C Work Phone: [facility] 10-05-2023 08:03-0500 Body temperature 97.2 [degF] Estela Day PA-C Work Phone: [facility] 10-05-2023 08:03-0500 Diastolic blood pressure 77 mm[Hg] Estela Day PA-C Work Phone: [facility] 10-05-2023 08:03-0500 Heart rate 120 /min Estela Day PA-C Work Phone: [facility] 10-05-2023 08:03-0500 Respiratory rate 18 /min Estela Day PA-C Work Phone: [facility] 10-05-2023 08:03-0500 SaO2% (BldA) [Mass fraction] 98 % Estela Day PA-C Work Phone: [facility] 10-05-2023 08:03-0500 Systolic blood pressure 120 mm[Hg] Estela Day PA-C Work Phone: [facility] 07-13-2023 08:23-0400 Body temperature 97.81 [degF] Estela Day PA-C Work Phone: [facility] 07-13-2023 08:23-0400 Diastolic blood pressure 79 mm[Hg] Estela Day PA-C Work Phone: [facility] 07-13-2023 08:23-0400 Heart rate 108 /min Estela Day PA-C Work Phone: [facility] 07-13-2023 08:23-0400 Respiratory rate 18 /min Estela Day PA-C Work Phone: [facility] 07-13-2023 08:23-0400 SaO2% (BldA) [Mass fraction] 98 % Estela Day PA-C Work Phone: [facility] 07-13-2023 08:23-0400 Systolic blood pressure 114 mm[Hg] Estela Day PA-C Work Phone: [facility] 06-01-2023 08:10-0400 Body temperature 96.6 [degF] Estela Day PA-C Work Phone: [facility] 06-01-2023 08:10-0400 Diastolic blood pressure 74 mm[Hg] Estela Day PA-C Work Phone: [facility] 06-01-2023 08:10-0400 Heart rate 90 /min Estela Day PA-C Work Phone: [facility] 06-01-2023 08:10-0400 Respiratory rate 18 /min Estela Day PA-C Work Phone: [facility] 06-01-2023 08:10-0400 SaO2% (BldA) [Mass fraction] 98 % Estela Day PA-C Work Phone: [facility] 06-01-2023 08:10-0400 Systolic blood pressure 121 mm[Hg] Estela Day PA-C Work Phone: [facility] 04-20-2023 08:33-0400 Body height 170.2 cm Dawit Hernandez MD Work Phone: [facility] 04-20-2023 08:33-0400 Body temperature 97.11 [degF] Dawit Hernandez MD Work Phone: [facility] 04-20-2023 08:33-0400 Body weight 85.28 kg Dawit Hernandez MD Work Phone: [facility] 04-20-2023 08:33-0400 Diastolic blood pressure 69 mm[Hg] Dawit Hernandez MD Work Phone: [facility] 04-20-2023 08:33-0400 Heart rate 98 /min Dawit Hernandez MD Work Phone: [facility] 04-20-2023 08:33-0400 SaO2% (BldA) [Mass fraction] 98 % Dawit Hernandez MD Work Phone: [facility] 04-20-2023 08:33-0400 Systolic blood pressure 104 mm[Hg] Dawit Hernandez MD Work Phone: [facility] 03-09-2023 08:07-0400 Body height 170.2 cm Dawit Hernandez MD Work Phone: [facility] 03-09-2023 08:07-0400 Body temperature 97.81 [degF] Dawit Hernandez MD Work Phone: [facility] 03-09-2023 08:07-0400 Body weight 85.28 kg Dawit Hernandez MD Work Phone: [facility] 03-09-2023 08:07-0400 Diastolic blood pressure 70 mm[Hg] Dawit Hernandez MD Work Phone: [facility] 03-09-2023 08:07-0400 Heart rate 98 /min Dawit Hernandez MD Work Phone: [facility] 03-09-2023 08:07-0400 Respiratory rate 20 /min Dawit Hernandez MD Work Phone: [facility] 03-09-2023 08:07-0400 SaO2% (BldA) [Mass fraction] 99 % Dawit Hernandez MD Work Phone: [facility] 03-09-2023 08:07-0400 Systolic blood pressure 117 mm[Hg] Dawit Hernandez MD Work Phone: [facility] 01-26-2023 08:04-0400 Diastolic blood pressure 68 mm[Hg] Dawit Hernandez MD Work Phone: [facility] 01-26-2023 08:04-0400 Heart rate 116 /min Dawit Hernandez MD Work Phone: [facility] 01-26-2023 08:04-0400 Systolic blood pressure 121 mm[Hg] Dawit Hernandez MD Work Phone: [facility] 01-26-2023 08:01-0400 Body height 170.2 cm Dawit Hernandez MD Work Phone: [facility] 01-26-2023 08:01-0400 Body temperature 97.2 [degF] Dawit Hernandez MD Work Phone: [facility] 01-26-2023 08:01-0400 Body weight 89.36 kg Dawit Hernandez MD Work Phone: [facility] 01-26-2023 08:01-0400 Respiratory rate 20 /min Dawit Hernandez MD Work Phone: [facility] 01-26-2023 08:01-0400 SaO2% (BldA) [Mass fraction] 97 % Dawit Hernandez MD Work Phone: [facility] 12-14-2022 08:14-0500 Body height 170.2 cm Estela Day PA-C Work Phone: [facility] 12-14-2022 08:14-0500 Body temperature 97 [degF] Estela Day PA-C Work Phone: [facility] 12-14-2022 08:14-0500 Body weight 89.81 kg Estela Day PA-C Work Phone: [facility] 12-14-2022 08:14-0500 Diastolic blood pressure 75 mm[Hg] Estela Day PA-C Work Phone: [facility] 12-14-2022 08:14-0500 Heart rate 128 /min Estela Day PA-C Work Phone: [facility] 12-14-2022 08:14-0500 Respiratory rate 20 /min Estela Day PA-C Work Phone: [facility] 12-14-2022 08:14-0500 SaO2% (BldA) [Mass fraction] 97 % Estela Day PA-C Work Phone: [facility] 12-14-2022 08:14-0500 Systolic blood pressure 126 mm[Hg] Estela Day PA-C Work Phone: [facility] 11-02-2022 08:01-0500 Body height 170.2 cm Estela Day PA-C Work Phone: [facility] 11-02-2022 08:01-0500 Body temperature 97.7 [degF] Estela Day PA-C Work Phone: [facility] 11-02-2022 08:01-0500 Body weight 89.36 kg Estela Day PA-C Work Phone: [facility] 11-02-2022 08:01-0500 Diastolic blood pressure 75 mm[Hg] Estela Day PA-C Work Phone: [facility] 11-02-2022 08:01-0500 Heart rate 103 /min Estela Day PA-C Work Phone: [facility] 11-02-2022 08:01-0500 Respiratory rate 20 /min Estela Day PA-C Work Phone: [facility] 11-02-2022 08:01-0500 SaO2% (BldA) [Mass fraction] 98 % Estela Day PA-C Work Phone: [facility] 11-02-2022 08:01-0500 Systolic blood pressure 127 mm[Hg] Estela Day PA-C Work Phone: [facility] 06-28-2022 08:22-0400 Body height 170.2 cm Estela Day PA-C Work Phone: [facility] 06-28-2022 08:22-0400 Body temperature 97.3 [degF] Estela Day PA-C Work Phone: [facility] 06-28-2022 08:22-0400 Body weight 90.27 kg Estela Day PA-C Work Phone: [facility] 06-28-2022 08:22-0400 Diastolic blood pressure 73 mm[Hg] Estela Day PA-C Work Phone: [facility] 06-28-2022 08:22-0400 Heart rate 109 /min Estela Day PA-C Work Phone: [facility] 06-28-2022 08:22-0400 Respiratory rate 20 /min Estela Day PA-C Work Phone: [facility] 06-28-2022 08:22-0400 SaO2% (BldA) [Mass fraction] 96 % Estela Day PA-C Work Phone: [facility] 06-28-2022 08:22-0400 Systolic blood pressure 112 mm[Hg] Estela Day PA-C Work Phone: [facility] 05-17-2022 08:52-0400 Body height 170.2 cm Estela Day PA-C Work Phone: [facility] 05-17-2022 08:52-0400 Body temperature 97.3 [degF] Estela Day PA-C Work Phone: [facility] 05-17-2022 08:52-0400 Body weight 89.81 kg Estela Day PA-C Work Phone: [facility] 05-17-2022 08:52-0400 Diastolic blood pressure 81 mm[Hg] Estela Day PA-C Work Phone: [facility] 05-17-2022 08:52-0400 Heart rate 96 /min Estela Day PA-C Work Phone: [facility] 05-17-2022 08:52-0400 Respiratory rate 20 /min Estela Day PA-C Work Phone: [facility] 05-17-2022 08:52-0400 SaO2% (BldA) [Mass fraction] 97 % Estela Day PA-C Work Phone: [facility] 05-17-2022 08:52-0400 Systolic blood pressure 128 mm[Hg] Estela Day PA-C Work Phone: [facility] 03-08-2022 08:20-0400 Body height 170.2 cm Dawit Hernandez MD Work Phone: [facility] 03-08-2022 08:20-0400 Body temperature 97.7 [degF] Dawit Hernandez MD Work Phone: [facility] 03-08-2022 08:20-0400 Body weight 88.45 kg Dawit Hernandez MD Work Phone: [facility] 03-08-2022 08:20-0400 Diastolic blood pressure 71 mm[Hg] Dawit Hernandez MD Work Phone: [facility] 03-08-2022 08:20-0400 Heart rate 100 /min Dawit Hernandez MD Work Phone: [facility] 03-08-2022 08:20-0400 Respiratory rate 18 /min Dawit Hernandez MD Work Phone: [facility] 03-08-2022 08:20-0400 Systolic blood pressure 129 mm[Hg] Dawit Hernandez MD Work Phone: [facility] 07-19-2011 11:55-0400 BMI (Body Mass Index) [...] 11:55-0400 Pulse (Heart Rate) 80 /min Patricia Ash RN [facility] Work Phone: Comment on above: Pattern: Regular 07-19-2011 11:55-0400 Respiratory Rate 20 /min Patricia Ash RN [facility] Work Phone: Comment on above: Pattern: Unlabored 03-14-2011 09:20-0400 BMI (Body Mass Index) 34.16 kg/m2 Manisha Ribera RN [facility] Internal Medicine Work Phone: 03-14-2011 09:20-0400 Body [...] Respiratory Rate 20 /min Patricia Ash RN [facility] Internal Medicine Work Phone: Comment on above: Pattern: Unlabored 03-12-2009 15:06-0400 BMI (Body Mass Index) 33.79 kg/m2 Fred Karlosyoselin [facility] Internal Medicine Work Phone: 03-12-2009 15:06-0400 Body Temperature 98.2 [degF] [facility] Work Phone: Comment on above: Method: Oral 03-12-2009 15:06-0400 Body weight 99.[address] [facility] Internal Medicine Work Phone: 03-12-2009 15:06-0400 BP Diastolic 78 mm[Hg] Fred [facility] Work Phone: Comment on above: Patient Position: Sitting; Cuff Location : Left Arm; Cuff Size: Standard 03-12-2009 15:06-0400 BP Systolic 112 mm[Hg] Fred [facility] Work Phone: Comment on above: Patient Position: Sitting; Cuff Location : Left Arm; Cuff Size: Standard 03-12-2009 15:06-0400 BSA (Body Surface Area) 2.[address] [facility] Internal Medicine Work Phone: 03-12-2009 15:06-0400 Head Circumference 0 cm Afsaneh Green [facility] Internal Medicine Work Phone: 03-12-2009 15:06-0400 Head Occipital-frontal circumference [address] [facility]; [facility] Work Phone: 03-12-2009 15:06-0400 Height 171.[address] [facility] Work Phone: 03-12-2009 15:06-0400 Pulse (Heart Rate) 82 /min [facility] Medicine Work Phone: Comment on above: Pattern: Regular 03-12-2009 15:06-0400 Respiratory Rate 18 /min [facility] Medicine Work Phone: Comment on above: Pattern: Unlabored 03-10-2009 08:10-0400 Body Temperature 98.5 [degF] Tuyet [facility] Work Phone: Comment on above: Method: Undefined 03-10-2009 08:10-0400 Body weight 0 kg Tuyet [facility] Work Phone: 03-10-2009 08:10-0400 BP Diastolic 76 mm[Hg] Tuyet [facility] Work Phone: Comment on above: Patient Position: Sitting; Cuff Location : Left Arm; Cuff Size: Large 03-10-2009 08:10-0400 BP Systolic 114 mm[Hg] Tuyet [facility] Work Phone: Comment on above: Patient Position: Sitting; Cuff Location : Left Arm; Cuff Size: Large 03-10-2009 08:10-0400 Head Circumference 0 cm Afsaneh Green [facility] Internal Medicine Work Phone: 03-10-2009 08:10-0400 Head Occipital-frontal circumference 0 cm Tuyet Saroj [facility]; [facility] Work [...] 03-20-2008 15:47-0400 BP Diastolic 76 mm[Hg] Patricia Ahs RN [facility] Work Phone: Comment [...] 09:16-0500 BMI (Body Mass Index) 32.1 kg/m2 [facility] Medicine Work Phone: 09-15-2007 09:16-0500 Body Temperature 98.9 [degF] [facility] Work Phone: Comment on above: Method: Oral 09-15-2007 09:16-0500 Body weight 94.35 kg [facility] Work Phone: 09-15-2007 09:16-0500 BP Diastolic 68 mm[Hg] [facility] Work Phone: Comment on above: Patient Position: Sitting; Cuff Location : Right Arm; Cuff Size: Standard 09-15-2007 09:16-0500 BP Systolic 130 mm[Hg] [facility] Work Phone: Comment on above: Patient Position: Sitting; Cuff Location : Right Arm; Cuff Size: Standard 09-15-2007 09:16-0500 BSA (Body Surface Area) 2.07 m2 [facility] Work Phone: 09-15-2007 09:16-0500 Head Circumference 0 [facility] Work Phone: 09-15-2007 09:16-0500 Head Occipital-frontal circumference 0 cm [facility]; [facility] Work Phone: 09-15-2007 09:16-0500 Height 171.45 cm [facility] Work Phone: 09-15-2007 09:16-0500 Pulse (Heart Rate) 84 /min [facility] Work Phone: Comment on above: Pattern: Regular 09-15-2007 09:16-0500 Respiratory Rate 18 /min [facility] Work Phone: Comment on above: [...] 09-13-2007 11:45-0500 Body Temperature 98.2 [degF] [facility] Work Phone: Comment on above: Method: Oral 09-13-2007 11:45-0500 Body weight 0 kg Patti Ambrocio [facility] Internal Medicine Work Phone: 09-13-2007 11:45-0500 BP Diastolic 76 mm[Hg] Patti Ambrocio [facility] Medicine Work Phone: Comment on above: Patient Position: Sitting; Cuff Location : Right Arm; Cuff Size: Standard 09-13-2007 11:45-0500 BP Systolic 104 mm[Hg] [facility] Work Phone: Comment on above: Patient Position: Sitting; Cuff Location : Right Arm; Cuff Size: Standard 09-13-2007 11:45-0500 Head Circumference 0 cm Afsaneh Green [facility] Internal Medicine Work Phone: 09-13-2007 11:45-0500 Head Occipital-frontal circumference 0 cm Patti Ambrocio [facility]; [facility] Work Phone: 09-13-2007 11:45-0500 Height 0 cm Patti Ambrocio [facility] Work Phone: 09-13-2007 11:45-0500 Pulse (Heart Rate) 84 /min [facility] Work Phone: Comment on above: Pattern: Regular 09-13-2007 11:45-0500 Respiratory Rate 18 /min Patti Ambrocio [facility] Medicine Work Phone: Comment on above: Pattern: Unlabored 09-12-2007 12:04-0500 BMI (Body Mass Index) 32.1 kg/m2 Danna Miller [facility] Internal Medicine Work Phone: 09-12-2007 12:04-0500 Body Temperature 98.1 [degF] Danna Miller [facility] Medicine Work Phone: Comment on above: Method: Oral 09-12-2007 12:04-0500 Body weight 94.35 kg [facility] Work Phone: 09-12-2007 12:04-0500 BP Diastolic 60 mm[Hg] [facility] Work Phone: Comment on above: Patient Position: Sitting; Cuff Location : Right Arm; Cuff Size: Standard 09-12-2007 12:04-0500 BP Systolic 110 mm[Hg] [facility] Work Phone: Comment on above: Patient Position: Sitting; Cuff Location : Right Arm; Cuff Size: Standard 09-12-2007 12:04-0500 BSA (Body Surface Area) 2.07 m2 [facility] Work Phone: 09-12-2007 12:04-0500 Head Circumference 0 cm Afsaneh Green [facility] Medicine Work Phone: 09-12-2007 12:04-0500 Head Occipital-frontal circumference 0 cm [facility]; [facility] Work Phone: 09-12-2007 12:04-0500 Height 171.45 cm [facility] Work Phone: 09-12-2007 12:04-0500 Pulse (Heart Rate) 112 /min [facility] Work Phone: Comment on above: Pattern: Regular 09-12-2007 12:04-0500 Respiratory Rate 18 /min [facility] Work Phone: Comment on above: [...] 11:44-0500 Body Temperature 98.4 [degF] Patti Ambrocio [facility] Medicine Work Phone: Comment on above: Method: Oral 09-05-2007 11:44-0500 Body weight 0 kg Patti Ambrocio [facility] Medicine Work Phone: 09-05-2007 11:44-0500 BP Diastolic 62 mm[Hg] [facility] Work Phone: Comment on above: Patient Position: Sitting; Cuff Location : Left Arm; Cuff Size: Standard 09-05-2007 11:44-0500 BP Systolic 100 mm[Hg] [facility] Work Phone: Comment on above: Patient Position: Sitting; Cuff Location : Left Arm; Cuff Size: Standard 09-05-2007 11:44-0500 Head Circumference 0 cm Afsaneh Green [facility] Medicine Work Phone: 09-05-2007 11:44-0500 Head Occipital-frontal circumference 0 cm Patti Ambrocio [facility]; [facility] Work Phone: 09-05-2007 11:44-0500 Height 0 cm [facility] Work Phone: 09-05-2007 11:44-0500 Pulse (Heart Rate) 64 /min [facility] Work Phone: Comment on above: Pattern: Regular 09-05-2007 11:44-0500 Respiratory Rate 18 /min [facility] Work Phone: Comment [...] Phone: 08-25-2007 09:29-0400 Body weight 94.35 kg Patrciia Ash RN [facility] Work Phone: [...] (Body Mass Index) 32.1 kg/m2 Carey Neff [facility] Work Phone: 08-22-2007 09:01-0400 Body Temperature 98.8 [degF] Carey Neff [facility] Work Phone: Comment on above: Method: Oral 08-22-2007 09:01-0400 Body weight 94.35 kg Carey Neff [employer] [facility] Work Phone: 08-22-2007 09:01-0400 BP Diastolic 80 mm[Hg] Carey Neff [facility] Work Phone: Comment on above: Patient Position: Sitting; Cuff Location : Left Arm; Cuff Size: Standard 08-22-2007 09:01-0400 BP Systolic 120 mm[Hg] Carey Neff [facility] Work Phone: Comment on above: Patient Position: Sitting; Cuff Location : Left Arm; Cuff Size: Standard 08-22-2007 09:01-0400 BSA (Body Surface Area) 2.07 m2 Carey Neff [facility] Work Phone: 08-22-2007 09:01-0400 [...] 10:57-0400 Body weight 0 kg Patti Ambrocio [facility] Work Phone: 08-17-2007 10:57-0400 BP Diastolic 76 mm[Hg] [facility] Work Phone: Comment on above: Patient Position: Sitting; Cuff Location : Right Arm; Cuff Size: Standard 08-17-2007 10:57-0400 BP Systolic 124 mm[Hg] [facility] Work Phone: Comment on above: Patient Position: Sitting; Cuff Location : Right Arm; Cuff Size: Standard 08-17-2007 10:57-0400 Head Circumference 0 cm Afsaneh Green [facility] Work Phone: 08-17-2007 10:57-0400 Head Occipital-frontal circumference 0 cm Patti Ambrocio [facility]; [facility] Work Phone: 08-17-2007 10:57-0400 Height 0 cm Patti Ambrocio [facility] Work Phone: 08-17-2007 10:57-0400 Pulse (Heart Rate) 78 /min [facility] Work Phone: Comment on above: Pattern: Regular 08-17-2007 10:57-0400 Respiratory Rate 18 /min [facility] Work Phone: Comment on above: Pattern: Unlabored 08-16-2007 10:09-0400 Body Temperature 98.6 [degF] SOFIE Zamora LPN [facility] Work Phone: Comment on above: Method: Oral 08-16-2007 10:09-0400 Body weight 0 kg SOFIE Zamora [employer] [facility] Work Phone: 08-16-2007 10:09-0400 BP Diastolic 78 mm[Hg] SOFIE Zamora [employer] [facility] Work Phone: Comment on above: Patient Position: Sitting; Cuff Location : Left Arm; Cuff Size: Standard 08-16-2007 10:09-0400 BP Systolic 122 mm[Hg] SOFIE Zamora [employer] [facility] Work Phone: Comment on above: Patient Position: Sitting; Cuff Location : Left Arm; Cuff Size: Standard 08-16-2007 10:09-0400 Head Circumference 0 cm Afsaneh Grene [facility] Work Phone: 08-16-2007 10:09-0400 Head Occipital-frontal circumference 0 cm SOFIE Zamora [facility]; [facility] Work Phone: 08-16-2007 10:-0400 Height 0 cm SOFIE Zamora [employer] [facility] Work Phone: 08-16-2007 10:09-0400 Pulse (Heart Rate) 70 /min SOFIE Zamora [employer] [facility] Work Phone: Comment on above: Pattern: Regular 08-16-2007 10:-0400 Respiratory Rate 18 /min SOFIE Zamora [employer] [facility] Work Phone: Comment on above: Pattern: Unlabored 08-15-2007 11:26-0400 BMI (Body Mass Index) 32.1 kg/m2 Carey Neff [facility] Work Phone: 08-15-2007 11:26-0400 Body weight 94.35 kg Carey Neff [facility] Work Phone: 08-15-2007 11:26-0400 BP Diastolic 72 mm[Hg] Carey Neff [facility] Work Phone: Comment on above: Patient Position: Sitting; Cuff Location : Left Arm; Cuff Size: Standard 08-15-2007 11:26-0400 BP Systolic 122 mm[Hg] Carey Neff [facility] Work Phone: Comment on above: Patient Position: Sitting; Cuff Location : Left Arm; Cuff Size: Standard 08-15-2007 11:26-0400 BSA (Body Surface Area) 2.07 m2 Carey Neff [facility] Work Phone: 08-15-2007 11:26-0400 [...] 09:28-0400 Body Temperature 99.2 [degF] Afsaneh Green [facility] [facility] Work Phone: Comment on above: Method: Oral 08-07-2007 09:28-0400 Body weight 0 kg Afsaneh Green [facility] Internal Medicine Work Phone: 08-07-2007 09:28-0400 [...] 09:25-0400 Body weight 0 kg ALLAN SUN [employer] Work Phone: [facility] Work Phone: 08-05-2007 09:25-0400 BP Diastolic 72 mm[Hg] ALLAN [employer] Work Phone: [facility] Work Phone: Comment on above: Patient Position: Sitting; Cuff Location : Undefined; Cuff Size: Undefined 08-05-2007 09:25-0400 BP Systolic 122 mm[Hg] ALLAN [employer] Work Phone: [facility] Work Phone: Comment on above: Patient Position: Sitting; Cuff Location : Undefined; Cuff Size: Undefined 08-05-2007 09:25-0400 Head Circumference 0 cm Afsaneh Green [facility] Work Phone: 08-05-2007 09:25-0400 Head Occipital-frontal circumference 0 cm ALLAN [employer] Work Phone: [facility]; [facility] Work Phone: 08-05-2007 09:25-0400 Height 0 cm ALLAN [employer] WORK[employer] Work Phone: [facility] Work Phone: [...] 08-03-2007 11:54-0400 Body Temperature 97.1 [degF] [facility] Work Phone: Comment on above: Method: Oral 08-03-2007 11:54-0400 Body weight 0 kg Patti Ambrocio [facility] Internal Medicine Work Phone: 08-03-2007 11:54-0400 BP Diastolic 70 mm[Hg] [facility] Work Phone: Comment on above: Patient Position: Sitting; Cuff Location : Left Arm; Cuff Size: Standard 08-03-2007 11:54-0400 BP Systolic 122 mm[Hg] [facility] Work Phone: Comment on above: Patient Position: Sitting; Cuff Location : Left Arm; Cuff Size: Standard 08-03-2007 11:54-0400 Head Circumference 0 cm Afsaneh Green [facility] Work Phone: 08-03-2007 11:54-0400 Head Occipital-frontal circumference 0 cm [facility]; [facility] Work Phone: 08-03-2007 11:54-0400 Height 0 cm [facility] Work Phone: 08-03-2007 11:54-0400 Pulse (Heart Rate) 74 /min [facility] Work Phone: Comment on above: Pattern: Regular 08-03-2007 11:54-0400 Respiratory Rate 16 /min [facility] Work Phone: Comment [...] Work Phone: 08-02-2007 12:44-0400 Height 171.45 cm Carey Neff LPN [facility] [...] 09:24-0400 BMI (Body Mass Index) 32.1 kg/m2 [facility] Internal Medicine Work Phone: 07-20-2007 09:24-0400 Body Temperature 97.3 [degF] [facility] Internal Medicine Work Phone: Comment on above: Method: Oral 07-20-2007 09:24-0400 Body weight 94.35 kg [facility] Internal Medicine Work Phone: 07-20-2007 09:24-0400 BP Diastolic 80 mm[Hg] [facility] Internal Medicine Work Phone: Comment on above: Patient Position: Sitting; Cuff Location : Left Arm; Cuff Size: Standard 07-20-2007 09:24-0400 BP Systolic 130 mm[Hg] [facility] Internal Medicine Work Phone: Comment on above: Patient Position: Sitting; Cuff Location : Left Arm; Cuff Size: Standard 07-20-2007 09:24-0400 BSA (Body Surface Area) 2.07 m2 [facility] Internal Medicine Work Phone: 07-20-2007 09:24-0400 Head Circumference 0 [facility] Work Phone: 07-20-2007 09:24-0400 Head Occipital-frontal circumference 0 cm [facility]; [facility] Work Phone: 07-20-2007 09:24-0400 Height 171.45 cm [facility] Internal Medicine Work Phone: 07-20-2007 09:24-0400 Pulse (Heart Rate) 80 /min [facility] Internal Medicine Work Phone: Comment on above: Pattern: Regular 07-20-2007 09:24-0400 Respiratory Rate 18 /min [facility] Internal Medicine Work Phone: Comment on above: Pattern: Unlabored 07-19-2007 09:29-0400 Body Temperature 97.6 [degF] SOFIE Zamora [facility] Internal Medicine Work Phone: Comment on above: Method: Oral 07-19-2007 09:29-0400 Body weight 0 kg SOFIE Zamora DENIA [facility] Internal Medicine Work Phone: 07-19-2007 09:29-0400 BP Diastolic 78 mm[Hg] SOFIEGEOFFREY Zamora [facility] Internal Medicine Work Phone: Comment on above: Patient Position: Sitting; Cuff Location : Left Arm; Cuff Size: Standard 07-19-2007 09:29-0400 BP Systolic 116 mm[Hg] SOFIE Noah [facility] Internal Medicine Work Phone: Comment on above: Patient Position: Sitting; Cuff Location : Left Arm; Cuff Size: Standard 07-19-2007 09:29-0400 Head Circumference 0 cm Afsaneh Renaeon [facility] Internal Medicine Work Phone: 07-19-2007 09:29-0400 Head Occipital-frontal circumference 0 cm SOFIE Zamora LPN [facility] Internal Medicine; [facility] Work Phone: 07-19-2007 09:29-0400 Height 0 cm SOFIEGEOFFREY Zamora [employer] [facility] Internal Medicine Work Phone: 07-19-2007 09:29-0400 Pulse (Heart Rate) 70 /min SOFIE Noah [employer] [facility] Internal Medicine Work Phone: Comment on above: Pattern: Regular 07-19-2007 09:29-0400 Respiratory Rate 20 /min SOFIE Noah [facility] Internal Medicine Work Phone: Comment on above: Pattern: Unlabored 07-18-2007 09:44-0400 Body Temperature 98.8 [degF] SOFIE Zamora LPN [facility] Work Phone: Comment on above: Method: Oral 07-18-2007 09:44-0400 Body weight 0 kg SOFIE Zamora LPN [facility] Work Phone: 07-18-2007 09:44-0400 BP Diastolic 74 mm[Hg] SOFIE Zamora [employer] [facility] Work Phone: Comment on [...] Head Occipital-frontal circumference 0 cm SOFIE Zamora [employer] [facility]; [facility] Work Phone: 07-18-2007 09:44-0400 Height 0 cm SOFIE Zamora [employer] [facility] Work Phone: 07-18-2007 09:44-0400 Pulse (Heart Rate) 74 /min SOFIE Zamora [employer] [facility] Work Phone: Comment on above: Pattern: Regular 07-18-2007 09:44-0400 Respiratory Rate 20 /min SOFIE Zamora LPN [facility] Work Phone: Comment on above: Pattern: Unlabored 07-17-2007 16:03-0400 BMI (Body Mass Index) 32.1 kg/m2 Carey Neff [facility] Work Phone: 07-17-2007 16:03-0400 Body Temperature 98.5 [degF] Carey Neff [facility] Work Phone: Comment on [...] 07:54-0400 Body Temperature 98.1 [degF] Leticia Navarro [facility] Internal Medicine Work Phone: Comment on above: Method: Oral 04-28-2007 07:54-0400 Body weight 0 kg Leticia Navarro [facility] Internal Medicine Work Phone: 04-28-2007 07:54-0400 Head Circumference 0 cm Afsanehomari Green [facility] Internal Medicine Work Phone: 04-28-2007 07:54-0400 Head Occipital-frontal circumference 0 cm Leticia Navarro [facility]; [facility] Work Phone: 04-28-2007 07:54-0400 Height 0 cm Leticia Navarro [facility] Internal Medicine Work Phone: 04-28-2007 07:54-0400 Pulse (Heart Rate) 78 /min Leticia Navarro [facility] Internal Medicine Work Phone: Comment on above: Pattern: Regular 04-28-2007 07:54-0400 Respiratory Rate 16 /min Leticia Navarro [facility] Internal Medicine Work Phone: Comment on above: Pattern: Unlabored 04-27-2007 08:41-0400 Body Temperature 98.3 [degF] Patricia Ash [facility] Work Phone: Comment on above: Method: Oral 04-27-2007 08:41-0400 Body weight 0 kg Patricia Ash [facility] Work Phone: 04-27-2007 08:41-0400 BP Diastolic 64 mm[Hg] Patricia Ash [facility] Internal Medicine Work Phone: Comment on above: Patient Position: Sitting; Cuff Location : Right Arm; Cuff Size: Standard 04-27-2007 08:41-0400 BP Systolic 118 mm[Hg] Patricia Ash [facility] Internal Medicine Work Phone: Comment on above: Patient Position: Sitting; Cuff Location : Right Arm; Cuff Size: Standard 04-27-2007 08:41-0400 Head Circumference 0 cm Afsaneh Green [facility] Work Phone: 04-27-2007 08:41-0400 Head Occipital-frontal circumference 0 cm Patricia Ash [facility]; [facility] Work Phone: 04-27-2007 08:41-0400 Height 0 cm Patricia Ash [facility] Internal Medicine Work Phone: 04-27-2007 08:41-0400 Pulse (Heart Rate) 72 /min Patricia Ash [facility] Internal Medicine Work Phone: Comment on above: Pattern: Regular 04-27-2007 08:41-0400 Respiratory Rate 20 /min Patricia Ash [facility] Work Phone: Comment on above: Pattern: Unlabored 04-26-2007 08:22-0400 Body Temperature 97.9 [degF] Patricia Ash [facility] Internal Medicine Work Phone: Comment on above: Method: Oral 04-26-2007 08:22-0400 Body weight 0 kg Patricia Ash [facility] Internal Medicine Work Phone: 04-26-2007 08:22-0400 BP Diastolic 70 mm[Hg] Patricia Ash [facility] Internal Medicine Work Phone: Comment on above: Patient Position: Sitting; Cuff Location : Right Arm; Cuff Size: Standard 04-26-2007 08:22-0400 BP Systolic 124 mm[Hg] Patricia Ash [facility] Internal Medicine Work Phone: Comment on above: Patient Position: Sitting; Cuff Location : Right Arm; Cuff Size: Standard 04-26-2007 08:22-0400 Head Circumference 0 cm Afsaneh Nelida [facility] Internal Medicine Work Phone: 04-26-2007 08:22-0400 Head Occipital-frontal circumference 0 cm Patricia Ash [facility]; [facility] Work Phone: 04-26-2007 08:22-0400 Height 0 cm Patricia Ash [facility] Internal Medicine Work Phone: 04-26-2007 08:22-0400 Pulse (Heart Rate) 84 /min Patricia Ash [facility] Internal Medicine Work Phone: Comment on above: Pattern: Regular 04-26-2007 08:22-0400 Respiratory Rate 20 /min Patricia Ash [facility] Internal Medicine Work Phone: Comment on above: Pattern: Unlabored 04-25-2007 08:27-0400 Body Temperature 98.1 [degF] Leticia Navarro [facility] Internal Medicine Work Phone: Comment on above: Method: Oral 04-25-2007 08:27-0400 Body weight 0 kg Leticia Navarro [facility] Internal Medicine Work Phone: 04-25-2007 08:27-0400 BP Diastolic 60 mm[Hg] Leticia Navarro [facility] Internal Medicine Work Phone: Comment on above: Patient Position: Sitting; Cuff Location : Left Arm; Cuff Size: Standard 04-25-2007 08:27-0400 BP Systolic 124 mm[Hg] Leticia [facility] Internal Medicine Work Phone: Comment on above: Patient Position: Sitting; Cuff Location : Left Arm; Cuff Size: Standard 04-25-2007 08:27-0400 Head Circumference 0 cm Afsaneh Green [facility] Internal Medicine Work Phone: 04-25-2007 08:27-0400 Head Occipital-frontal circumference 0 cm Leticia Navarro [facility] Internal Medicine; [facility] Medicine Work Phone: 04-25-2007 08:27-0400 Height 0 cm Leticia [facility] Internal Medicine Work Phone: 04-25-2007 08:27-0400 Pulse (Heart Rate) 80 /min Leticia [facility] Internal Medicine Work Phone: Comment on above: Pattern: Regular 04-25-2007 08:27-0400 Respiratory Rate 16 /min Leticia [facility] Internal Medicine Work Phone: Comment on above: Pattern: Unlabored 04-24-2007 10:39-0400 Body Temperature 97.5 [degF] Leticia [facility] Internal Medicine Work Phone: Comment on above: Method: Oral 04-24-2007 10:39-0400 Body weight 0 kg Leticia [facility] Internal Medicine Work Phone: 04-24-2007 10:39-0400 Head Circumference 0 cm Afsaneh [facility] Internal Medicine Work Phone: 04-24-2007 10:39-0400 Head Occipital-frontal circumference 0 cm Leticia [facility] Internal Medicine; [facility] Internal Medicine Work Phone: 04-24-2007 10:39-0400 Height 0 cm Leticia [facility] Internal Medicine Work Phone: 04-24-2007 10:39-0400 Pulse (Heart Rate) 68 /min Leticia [facility] Internal Medicine Work Phone: Comment on above: Pattern: Regular 04-24-2007 10:39-0400 Respiratory Rate 16 /min Leticia [facility] Internal Medicine Work Phone: Comment [...] 08:18-0400 Body Temperature 97 [degF] Leticia Navarro [facility] Internal Medicine Work Phone: Comment on above: Method: Oral 04-21-2007 08:18-0400 Body weight 0 kg Leticia Navarro [facility] Internal Medicine Work Phone: 04-21-2007 08:18-0400 BP Diastolic 62 mm[Hg] Leticia Navarro [facility] Internal Medicine Work Phone: Comment on above: Patient Position: Sitting; Cuff Location : Right Arm; Cuff Size: Standard 04-21-2007 08:18-0400 BP Systolic 110 mm[Hg] Leticia Navarro [facility] Internal Medicine Work Phone: Comment on above: Patient Position: Sitting; Cuff Location : Right Arm; Cuff Size: Standard 04-21-2007 08:18-0400 Head Circumference 0 cm Afsanehomari Green [facility] Internal Medicine Work Phone: 04-21-2007 08:18-0400 Head Occipital-frontal circumference 0 cm Leticia Navarro [facility]; [facility] Work Phone: 04-21-2007 08:18-0400 Height 0 cm Leticia [facility] Internal Medicine Work Phone: 04-21-2007 08:18-0400 Pulse (Heart Rate) 64 /min Leticia [facility] Internal Medicine Work Phone: Comment on above: Pattern: Regular 04-21-2007 08:18-0400 Respiratory Rate 16 /min Leticia [facility] Internal Medicine Work Phone: Comment on above: Pattern: Unlabored 04-20-2007 09:16-0400 BMI (Body Mass Index) 32.1 kg/m2 Patricia Ash [facility] Internal Medicine Work Phone: 04-20-2007 09:16-0400 Body Temperature 98.5 [degF] Patricia Ash [facility] Internal Medicine Work Phone: Comment on above: Method: Oral 04-20-2007 09:16-0400 Body weight 94.35 kg Patricia Ash [facility] Internal Medicine Work Phone: 04-20-2007 09:16-0400 BP Diastolic 60 mm[Hg] Patricia Ash [facility] Internal Medicine Work Phone: Comment on above: Patient Position: Sitting; Cuff Location : Left Arm; Cuff Size: Standard 04-20-2007 09:16-0400 BP Systolic 120 mm[Hg] Patricia Ash [facility] Internal Medicine Work Phone: Comment on above: Patient Position: Sitting; Cuff Location : Left Arm; Cuff Size: Standard 04-20-2007 09:16-0400 BSA (Body Surface Area) 2.07 m2 Patricia Ash [facility] Internal Medicine Work Phone: 04-20-2007 09:16-0400 Head Circumference 0 cm Afsanehomari Green [facility] Internal Medicine Work Phone: 04-20-2007 09:16-0400 Head Occipital-frontal circumference 0 cm Patricia Ash [facility]; [facility] Work Phone: 04-20-2007 09:16-0400 Height 171.45 cm Patricia Ash [facility] Internal Medicine Work Phone: 04-20-2007 09:16-0400 Pulse (Heart Rate) 64 /min Patricia Ash [facility] Internal Medicine Work Phone: Comment on above: Pattern: Regular 04-20-2007 09:16-0400 Respiratory Rate 16 /min Patricia Ash [facility] Internal Medicine Work Phone: Comment on above: Pattern: Unlabored 04-19-2007 08:13-0400 BMI (Body Mass Index) 33.33 kg/m2 Carey Neff DENIA [facility] Internal Medicine Work Phone: 04-19-2007 08:13-0400 Body Temperature 98.6 [degF] Carey Tawanda LOZA [facility] Internal Medicine Work Phone: Comment on above: Method: Oral 04-19-2007 08:13-0400 Body weight 97.98 kg Carey Neff DENIA [facility] Internal Medicine Work Phone: 04-19-2007 08:13-0400 BP Diastolic 74 mm[Hg] Carey Tawanda [facility] Internal Medicine Work Phone: Comment on above: Patient Position: Sitting; Cuff Location : Left Arm; Cuff Size: Standard 04-19-2007 08:13-0400 BP Systolic 122 mm[Hg] Carey Neff DENIA [facility] Internal Medicine Work Phone: Comment on above: Patient Position: Sitting; Cuff Location : Left Arm; Cuff Size: Standard 04-19-2007 08:13-0400 BSA (Body Surface Area) 2.1 m2 Carey Neff DENIA [facility] Internal Medicine Work Phone: 04-19-2007 08:13-0400 Head Circumference 0 cm Afsaneh Green [facility] Internal Medicine Work Phone: 04-19-2007 08:13-0400 [...] 10:11-0400 BP Diastolic 74 mm[Hg] SOFIE Zamora [employer] [facility] Work Phone: Comment on [...] Head Occipital-frontal circumference 0 cm SOFIE Zamora [employer] [facility]; [facility] Work Phone: 01-31-2007 [id number] Height 0 cm SOFIE Zamora LPN [facility] Work Phone: 01-31-2007 10:11-0400 Pulse (Heart Rate) 76 /min SOFIE Zamora [employer] [facility] Work Phone: Comment on [...] Body Temperature 97.7 [degF] SOFIE Zamora LPN [facility] Internal Medicine Work Phone: Comment on above: Method: Oral 01-27-2007 09:41-0400 Body weight 0 kg SOFIE Zamora LPN [facility] Internal Medicine Work Phone: 01-27-2007 09:41-0400 BP Diastolic 80 mm[Hg] SOFIE Zamora [employer] [facility] Internal Medicine Work Phone: Comment on above: Patient Position: Sitting; Cuff Location : Left Arm; Cuff Size: Standard 01-27-2007 09:41-0400 BP Systolic 120 mm[Hg] SOFIE Zamora LPN [facility] Internal Medicine Work Phone: Comment on above: Patient Position: Sitting; Cuff Location : Left Arm; Cuff Size: Standard 01-27-2007 09:41-0400 Head Circumference 0 cm Afsaneh Green [facility] Internal Medicine Work Phone: 01-27-2007 09:41-0400 [...] 09:43-0400 BP Diastolic 82 mm[Hg] SOFIE Zamora [employer] [facility] Work Phone: Comment on [...] Head Occipital-frontal circumference 0 cm SOFIE Zamora [employer] [facility]; [facility] Work Phone: 01-26-2007 09:43-0400 Height 0 cm SOFIE Zamora LPN [facility] Work Phone: 01-26-2007 09:43-0400 Pulse (Heart Rate) 88 /min SOFIE Zamora [employer] [facility] Work Phone: Comment on above: Pattern: Regular 01-26-2007 09:43-0400 Respiratory Rate 20 /min SOFIE Zamora [facility] Work Phone: Comment on above: Pattern: Unlabored 01-25-2007 09:27-0400 BMI (Body Mass Index) 33.33 kg/m2 Carey Neff LPN [facility] Work Phone: 01-25-2007 09:27-0400 Body Temperature 97.5 [degF] Carey Neff [employer] [facility] Work Phone: Comment on above: Method: Oral 01-25-2007 09:27-0400 Body weight 97.98 kg Carey Neff LPN [facility] Work Phone: 01-25-2007 09:27-0400 BP Diastolic 74 mm[Hg] Carey Neff [employer] [facility] Work Phone: Comment on [...] Head Occipital-frontal circumference 0 cm Carey Neff [employer] [facility]; [facility] Work Phone: 01-25-2007 09:27-0400 Height 171.45 cm Carey Neff [employer] [facility] Work Phone: 01-25-2007 09:27-0400 Pulse (Heart Rate) 66 /min Carey Neff [employer] [facility] Work Phone: Comment on [...] 2007 11:34-0400 Height 0 cm Afsaneh Green [facility] Internal Medicine Work Phone: 2007 11:34-0400 Pulse (Heart Rate) 60 /min Afsaneh Green [facility] Work Phone: Comment on above: Pattern: Regular 2007 11:34-0400 Respiratory Rate 20 /min Afsaneh Green [facility] Internal Medicine Work Phone: Comment on above: Pattern: Undefined 01-12-2007 13:05-0400 BMI (Body Mass Index) 33.33 kg/m2 Afsaneh Green [facility] Internal Medicine Work Phone: 01-12-2007 13:05-0400 Body [...] ambulatory Dr. Afsaneh Green DO Work Phone: [facility] Work Phone: Start: 04-17-2025 End: 04-17-[address] Rory Sims MD -Laboratory Work Phone: Start: 04-17-2025 End: 04-17-2025 ambulatory Afsaneh Green Facility:[facility] Start: 12-21-2024 End: 12-21-2024 ambulatory Afsaneh Green Facility:[facility] Start: 08-23-2024 End: 08-23-2024 Telephone encounter Estela Day PA-C Work Phone: Pain Management Comment on above: Appointment (Cx) Start: 08-15-2024 End: 08-15-2024 Subsequent hospital visit by physician [address] Comment on above: Type 2 diabetes antony itus with hyperglycemia (Multi) Start: 08-15-2024 End: 08-15-2024 ambulatory [place] [facility] Start: 08-09-2024 End: 08-09-2024 Patient encounter procedure [facility] Provider [facility] Department Start: 07-20-2024 End: 07-20-2024 Telephone encounter Estela Day PA-C Work Phone: Pain Management Comment on above: New POR referral Start: 07-16-2024 ambulatory Afsaneh Green Facilit y:[facility] Start: 07-10-2024 Encounter for genera l adult medical examination with abnormal findings Afsaneh Green [facility] Start: 06-28-2024 End: 06-28-2024 Telephone encounter Estela [...] Start: 06-15-2024 End: 06-15-2024 ambulatory Afsaneh Green Facility:[facility] Start: 06-06-2024 Patient encounter procedure [facility] Provider [facility] Start: 05-25-2024 End: 05-25-2024 ambulatory ESTELA Dinesh DAY Facility:[id number] Start: 05-25-2024 End: 05-25-2024 Patient encounter procedure [...] End: 05-02-2024 Subsequent hospital visit by physician [facility] Sonali Work Phone: Radiology Comment on above: Subacute cough [R05. 2] Start: 05-02-2024 End: 05-02-2024 ambulatory DANNA Chavez BARRERA Facility:[facility] Start: 05-02-2024 End: 05-02-2024 Office outpatient visit 25 minutes Ashutosh Hennessy APRN.NUTRITION WORKER Work Phone: [facility] Comment on above: Subacute cough (Prim arian Dx) Start: 05-02-2024 Telephone encounter Ashutosh garcia APRN.NUTRITION WORKER Work Phone: [facility] Comment on above: Results Start: [...] Start: 04-04-2024 End: 04-04-2024 ambulatory DAWIT HERNANDEZ Facility:[id number] Start: 03-19-2024 Refill Estela christina PA-C Work [...] Start: 02-07-2024 End: 02-07-2024 ambulatory ESTELA DAY Facility:[id number] Start: 01-20-2024 Refill Estela christina PA-C Work [...] Start: 12-27-2023 End: 12-27-2023 ambulatory ESTELA DAY Facility:[id number] Start: 11-15-2023 End: 11-15-2023 ambulatory ESTELA DAY Facility:[id number] Start: 10-05-2023 End: 10-05-2023 Patient encounter procedure Estela PEPE-C Work Phone: Pain Management Comment on above: 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); Complex regional pain syndrome type 1 of right lower extremity; Osteoarthritis of right knee, unspecified osteoarthritis type - BWC; Psychogenic pain - BWC Start: 10-05-2023 End: 10-05-2023 ambulatory ESTELA DAY Facility:[id number] Start: 09-26-2023 Refill Estela christina PA-C Work [...] Start: 04-27-2022 Patient encounter procedure [facility] Provider [facility] Department Start: 04-20-2022 Refill Estela christina PA-C Work Phone: Pain Management Comment on above: Refill Request Start: 03-29-2022 Chart abstracting Dawit Hernandez MD Work Phone: Pain Management Start: 03-08-2022 End: 03-08-2022 Subsequent hospital visit by physician Estela Day PA-C Work Phone: [facility]OD[facility] Comment on [...] End: 03-12-2011 Patient encounter procedure Afsaneh Green [facility] Start: 03-11-2011 End: 03-11-2011 Patient encounter procedure Afsaneh Green [facility] Start: 03-10-2011 End: 03-10-2011 Patient encounter procedure Afsaneh Green [facility] Start: 07-30-2009 End: 07-30-2009 Patient encounter procedure Afsaneh Green [facility] Start: 03-13-2009 End: 03-13-2009 Annotation/Addendum Afsaneh Green [facility] Director Transportation al Medicine Start: 03-12-2009 End: 03-12-2009 Office outpatient visit 25 minutes Afsanehavis Green [facility] Start: 03-10-2009 End: 03-12-2009 Patient encounter procedure Afsaneh Green [facility] Start: 07-16-2008 End: 07-16-2008 Historical Summary Afsaneh Green [facility] Director Transportation al Medicine Start: 03-20-2008 End: 03-20-2008 Patient encounter procedure Afsaneh Green [facility] Start: 12-21-2007 End: 12-21-2007 Patient encounter procedure Afsanehavis Green [facility] Start: 11-15-2007 End: 11-15-2007 Patient encounter procedure Afsanehavis Renaeon [facility] Start: 10-18-2007 End: 10-18-2007 Patient encounter procedure Afsaneh Nelida [facility] Start: 10-05-2007 End: 10-05-2007 Patient encounter procedure Afsaneh Nelida [facility] Start: 09-25-2007 End: 09-25-2007 Patient encounter procedure Afsanehavis Renaeon [facility] Start: 09-15-2007 End: 09-15-2007 Patient encounter procedure Afsanehavis Renaeon [facility] Start: 09-14-2007 End: 09-14-2007 Patient encounter procedure Afsanehavis Green [facility] Start: 09-13-2007 End: 09-13-2007 Patient encounter procedure Afsaneh Nelida [facility] Start: 09-12-2007 End: 09-13-2007 Office outpatient visit 10 minutes Afsaneh Nelida [facility] Start: 09-11-2007 End: 09-11-2007 Patient encounter procedure Afsaneh Nelida [facility] Start: 09-08-2007 End: 09-08-2007 Patient encounter procedure Afsaneh Nelida [facility] Start: 09-07-2007 End: 09-07-2007 Patient encounter procedure Afsanehavis Renaeon [facility] Start: 09-06-2007 End: 09-06-2007 Patient encounter procedure Afsaneh Nelida [facility] Start: 09-05-2007 End: 09-05-2007 Office outpatient visit 15 minutes Afsaneh Green [facility] Start: 09-04-2007 End: 09-04-2007 Patient encounter procedure Afsaneh Green [facility] Start: 09-01-2007 End: 09-01-2007 Patient encounter procedure Afsaneh Green [facility] Start: 08-31-2007 End: 08-31-2007 Office outpatient visit 15 minutes Afsaneh Green [facility] Start: 08-30-2007 End: 08-30-2007 Patient encounter procedure Afsaneh Green [facility] Start: 08-29-2007 End: 08-29-2007 Patient encounter procedure Afsaneh Green [facility] Start: 08-28-2007 End: 08-28-2007 Patient encounter procedure Afsaneh Green [facility] Start: 08-25-2007 End: 08-28-2007 Patient encounter procedure Afsaneh Green [facility] Start: 08-24-2007 End: 08-24-2007 Patient encounter procedure Afsaneh Renaeon [facility] Start: 08-23-2007 End: 08-23-2007 Patient encounter procedure Afsaneh Renaeon [facility] Start: 08-22-2007 End: 08-22-2007 Patient encounter procedure Afsaneh Renaeon [facility] Start: 08-21-2007 End: 08-21-2007 Patient encounter procedure Afsaneh Renaeon [facility] Start: 08-18-2007 End: 08-18-2007 Patient encounter procedure Afsaneh Renaeon [facility] Start: 08-17-2007 End: 08-17-2007 Patient encounter procedure Afsaneh Green [facility] Start: 08-16-2007 End: 08-16-2007 Patient encounter procedure Afsanehavis Renaeon [facility] Start: 08-15-2007 End: 08-15-2007 Patient encounter procedure Afsaneh Renaeon [facility] Start: 08-14-2007 End: 08-14-2007 Patient encounter procedure Afsaneh Green [facility] Start: 08-11-2007 End: 08-14-2007 Patient encounter procedure Afsanehavis Renaeon [facility] Start: 08-10-2007 End: 08-10-2007 Patient encounter procedure Afsaneh Green [facility] Start: 08-10-2007 End: 08-10-2007 Historical Summary Afsaneh Green [facility] Director Transportation al Medicine Start: 08-09-2007 End: 08-09-2007 Patient encounter procedure Afsanehavis Renaeon [facility] Start: 08-08-2007 End: 08-08-2007 Patient encounter procedure Afsaneh Green [facility] Start: 08-07-2007 End: 08-07-2007 Patient encounter procedure Afsaneh Green [facility] Start: 08-06-2007 End: 08-06-2007 Patient encounter procedure Afsaneh Green [facility] Start: 08-05-2007 End: 08-06-2007 Patient encounter procedure Afsaneh Green [facility] Start: 08-04-2007 End: 08-04-2007 Patient encounter procedure Afsaneh Green [facility] Start: 08-03-2007 End: 08-03-2007 Office outpatient visit 15 minutes Afsanehavis Green [facility] Start: 08-02-2007 End: 08-02-2007 Patient encounter procedure Afsaneh Green [facility] Start: 08-01-2007 End: 08-01-2007 Patient encounter procedure Afsaneh Green [facility] Start: 07-31-2007 End: 07-31-2007 Patient encounter procedure Afsaneh Renaeon [facility] Start: 07-27-2007 End: 07-27-2007 Patient encounter procedure Afsaneh Green [facility] Start: 07-26-2007 End: 07-26-2007 Patient encounter procedure Afsaneh Green [facility] Start: 07-25-2007 End: 07-25-2007 Patient encounter procedure Afsaneh Green [facility] Start: 07-24-2007 End: 07-24-2007 Office outpatient visit 25 minutes Afsanehomari Green [facility] Start: 07-20-2007 End: 07-20-2007 Patient encounter procedure Afsaneh Green [facility] Start: 07-19-2007 End: 07-19-2007 Patient encounter procedure Afsaneh Green [facility] Start: 07-18-2007 End: 07-18-2007 Patient encounter procedure Afsaneh Green [facility] Start: 07-17-2007 End: 07-17-2007 Office outpatient visit 25 minutes Afsaneh Nelida [facility] Start: 05-25-2007 End: 05-25-2007 Historical Summary Afsaneh Green [facility] Director Transportation al Medicine Start: 05-25-2007 End: 05-25-2007 Historical Summary Afsaneh Green [facility] Director Transportation al Medicine Start: 04-28-2007 End: 04-28-2007 Patient encounter procedure Afsanehomari Green [facility] Start: 04-27-2007 End: 04-28-2007 Patient encounter procedure Afsaneh Green [facility] Start: 04-26-2007 End: 04-26-2007 Patient encounter procedure Afsaneh Green [facility] Start: 04-25-2007 End: 04-25-2007 Patient encounter procedure Afsaneh Green [facility] Start: 04-24-2007 End: 04-24-2007 Patient encounter procedure Afsaneh Green [facility] Start: 04-23-2007 End: 04-23-2007 Patient encounter procedure Afsaneh Green [facility] Start: 04-22-2007 End: 04-22-2007 Patient encounter procedure Afsaneh Green [facility] Start: 04-21-2007 End: 04-21-2007 Patient encounter procedure Afsaneh Green [facility] Start: 04-20-2007 End: 04-20-2007 Patient encounter procedure Afsaneh Green [facility] Start: 04-19-2007 End: 04-19-2007 Patient encounter procedure Afsaneh Green [facility] Start: 01-31-2007 End: 01-31-2007 Patient encounter procedure Afsaneh Green [facility] Start: 01-30-2007 End: 01-30-2007 Patient encounter procedure Afsaneh Green [facility] Start: 01-29-2007 End: 01-29-2007 Patient encounter procedure Afsaneh Green [facility] Start: 01-28-2007 End: 01-28-2007 Patient encounter procedure Afsaneh Green [facility] Start: 01-27-2007 End: 01-27-2007 Patient encounter procedure Afsaneh Green [facility] Start: 01-26-2007 End: 01-26-2007 Office outpatient visit 15 minutes Afsaneh Green [facility] Start: 01-25-2007 End: 01-25-2007 Patient encounter procedure Afsaneh Green [facility] Start: 01-24-2007 End: 01-24-2007 Patient encounter procedure Afsaneh Green [facility] Start: 2007 End: 01-24-2007 Patient encounter procedure Afsaneh Green [facility] Start: 01-12-2007 End: 01-12-2007 Patient encounter procedure Afsanehavis Green [facility] Physical examination Assignment Manager [facility]; [facility] Work Phone: Procedures Date Procedure Procedure Detail Performing Clinician Start: 04-17-2025 Methadone measurement, urine Dr. Afsaneh Green DO Work Phone: Start: 05-02-2024 Radiologic exam chest 2 views Ashutosh Gerhard [employer] Work Phone: Start: 08-27-2015 End: 08-27-2015 Echocardiogram Complete Comments: See Note; NOTES: [facility] [address] [place] [address] Echo Complete 08/27/15 1307 MR#: [id number] Acct: [id number] Name: CONG HARRISON Rep #: [id number] : 1965 50 From: García Burger MD Attending Dr: OUT OF TOWN DOCTOR Status: REG I Ordering Dr: TIM CURRAN Date: 08/27/15 Location: [facility] Sex: M C Admitted: Procedure This was [...] Lat Peak E' Shannan: Med Peak E' Shannan: Ao V2 max: 81.3 cm/sec 9.8 cm/sec [...] Dictated: 08/27/15 1307 Date Transcribed: 08/27/15 141 Dominatrix: Signed Afsaneh Green Start: 07-30-2015 End: 07-30-2015 Emergency Department Summary Comments: See Note; NOTES: [facility] [address] [place] [address] Emergency Department Summary MR#: [id number] Acct: [id number] Name: CONG HARRISON Rep #: [id number] : 1965 50 From: Alvino Mcpherson MD PCP: Afsaneh Green DO [facility] DATE OF SERVICE: 07/27/2015 CHIEF COMPLAINT: Kicks [...] Dr. Alvino Mcpherson MD T: NTS JOB: [id number] 07/30/151 <Electronically signed by Alvino Mcpherson MD> Date Alvino Mcpherson MD Cosigner Signature (If Indicated): Date CC: Afsaneh Green DO Date Dictated: 07/27/152146 Date Transcribed: 07/27/152146 Dominatrix: Signed Afsaneh Green Start: 07-27-2015 End: 07-27-2015 Discharge Instruction Comments: See Note; NOTES: [facility] [address] [place] [address] Discharge Instruction 07/27/152149 MR#: [id number] Acct: [id number] Name: CONG HARRISON Rep #: [id number] : 1965 50 From: Alvino Mcpherson MD PCP: Afsaneh Green DO: [facility] ER ED Disposition - Plan for ED Patient: Chief Complaint: Trauma Instructions: Contusions (Bruises) What to do if you have Problems For any increased pain, shortness of breath, bleeding, nausea or vomiting, chest pain, or any unexpected problems, contact your doctor. Call [facility] ([phone]) or report to the closest Emergency Room. Call 911 if necessary. 07/27/15 2150 <Electronically signed by Alvino Mcpherson MD> Date Alvino Mcpherson MD Cosigner Signature (If Indicated): Date CC: Afsaneh Coronado Start: 07-27-2015 End: 07-28-2015 Elbow min 3 Views Comments: See Note; NOTES: [facility] [address] [place] [address] Radiology Report MR#: [id number] Acct: [id number] Name: CONG HARRISON Rep #: [id number] : 1965 M 50 From: Siddharth Choudhary MD PCP: Afsaneh Green DO Status: [facility] ER Study: Elbow min 3 Views Date of Exam: 07/27/15 Exam# [id number] Ordering Dr: Alvino Mcpherson MD STUDY: X-RAY [...] Siddharth Choudhary MD at 8:37 EDT Tel [phone], Service support [phone], RAD/Elbow min 3 Views IMPRESSION: The spur is seen at the level of the olecranon process of the proximal ulna. Electronically Signed: Siddharth Choudhary MD at 8:37 EDT Tel [phone], Service support [phone], CC: Alvino Mcpherson MD; Afsaneh Green DO Dominatrix: Signed Afsaneh Green Start: 07-27-2015 End: 07-28-2015 Wrist min 3 Views Comments: See Note; NOTES: [facility] [address] [place] [address] Radiology Report MR#: [id number] Acct: [id number] Name: CONG HARRISON Rep #: [id number] : 1965 M 50 From: Siddharth Choudhary MD PCP: Afsaneh Green DO [facility] Study: Wrist min 3 Views Date of Exam: 07/27/15 Exam# [id number] Ordering Dr: Alvino Mcpherson MD STUDY: X-RAY [...] Siddharth Choudhary MD at 8:38 EDT Tel [phone], Service support [phone], RAD/Wrist min 3 Views IMPRESSION: Normal x-ray examination of the wrist. Electronically Signed: Siddharth Choudhary MD at 8:38 EDT Tel [phone], Service support [phone], CC: Alvino Mcpherson MD; Afsaneh Green DO Dominatrix: Signed Afsaneh Green Start: 11-05-2014 End: 11-05-2014 Emergency Department Summary Comments: See Note; NOTES: [facility] [address] [place] [address] Emergency Department Summary MR#: [id number] Acct: [id number] Name: CONG HARRISON Rep #: [id number] : 1965 49 From: Estela Romero MD PCP: Afsaneh Green DO Status: [facility] ER DATE OF SERVICE: 10/31/2014 METHOD [...] MD Scotty Belcher C: Afsaneh Mann T: [facility] JOB: [id number] 11/05/14 0803 <Electronically signed by Estela Romero MD> Date Estela Romero MD CC: Afsaneh Green DO; Estela Pickett Date Dictated: 10/31/14 1331 Date Transcribed: 10/31/141330 Dominatrix: Signed Afsaneh Green Start: 10-31-2014 End: 10-31-2014 Discharge Instruction Comments: See Note; NOTES: [facility] [address] [place] [address] Discharge Instruction 10/31/14 1328 MR#: [id number] Acct: [id number] Name: CONG HARRISON Rep #: [id number] : 1965 49 From: Estela Romero MD [...] problems, contact your doctor. Call [facility] ) or report to the closest Emergency Room. Call 911 if necessary. 10/31/14 1329 <Electronically signed by Estela Romero MD> Date Estela Romero MD Cosigner Signature (If Indicated): Date CC: Afsaneh Coronado Start: 10-31-2014 End: 11-01-2014 Knee 4 or More Views Comments: See Note; NOTES: [facility] [address] [place] [address] Radiology Report MR#: [id number] Acct: [id number] Name: CONG HARRISON Rep #: [id number] : 1965 49 From: Susan Shaw MD PCP: Afsaneh Green DO Status: DEP ER Study: Knee 4 or More Views Date of Exam: 10/31/14 Exam# [id number] Ordering Dr: Estela Romero MD STUDY: X-RAY [...] at 11:20 EST Tel , Service support [phone], CC: Afsaneh Green DO; Estela Romero MD Dominatrix: Signed Afsaneh Green Plan of Treatment Date Care Activity Detail Author Start: 04-07-2028 DTaP/Tdap/Td Vaccine s (2 - Td or Tdap) DTaP/Tdap/Td Vaccines (2 - Td or Tdap) [facility] Start: 04-07-2028 Urine microalbumin profile DTaP,Tdap,Td Vaccine (2 - Td or Tdap) [facility] Start: 04-17-2025 Procedure [facility] Start: 08-28-2024 End: 08-28-2024 Patient encounter procedure 08/28/2024 8:30 AM EDT Office Visit Pain Management [address] [place] [address] Estela Day PA-C [address] [place] [address] FU Pain Management Comment on above: FU Start: 07-01-2024 Covid-19 Vaccine ( season) Covid-19 Vaccine ( season) [facility] Start: 07-01-2024 Covid-19 Vaccine ( season) Covid-19 Vaccine ( season) [facility] Start: 07-01-2024 Influenza vaccination Influenza Vacc ine (#1) [facility] Start: 05-25-2024 End: 05-25-2024 Patient encounter procedure 05/25/2024 8:00 AM EDT Office Visit Pain Management [address] [place] [address] Estela Day, PA-C [address] [place] [address] FOLLOW UP Pain Management Comment on above: FOLLOW UP Start: 04-04-2024 End: 07-04-2024 TOXASSURE FLEX 23, URINE TOXASSURE FLEX 23, URINE Lab Routine Complex regional pain syndrome type 1 of left lower extremity - [facility] Expected: 04/04/2024, Expires: 07/04/2024 [facility] Work Phone: Comment on above: Expected: 04/04/2024 , Expires: 07/04/2024 Start: 04-04-2024 End: 04-04-2024 Patient encounter procedure 04/04/2024 8:15 AM EDT Office Visit Pain Management [address] [place] [address] Dawit Hernandez MD [address] [place] [address] FOLLOW UP Pain Management Comment on above: FOLLOW UP Start: 10-31-2023 Behavioral Health Screening Behavioral Health Screening [facility] Start: 10-31-2023 Depression Assessment Depression Ass essment [facility] Start: 10-05-2023 End: 01-04-2024 TOXASSURE FLEX 23, URINE TOXASSURE FLEX 23, URINE Lab Routine Complex regional pain syndrome type 1 of left lower extremity Complex regional pain syndrome type 1 of right lower extremity Expected: 10/05/2023, Expires: 01/04/2024 [facility] Work Phone: Comment on above: Expected: 10/05/2023 , Expires: 01/04/2024 Start: 07-01-2023 Covid-19 Vaccine () Covid-19 Vaccine () [facility] Start: 07-01-2023 Influenza vaccination [facility] Start: 04-19-2023 End: 04-19-2024 ECG COMPLETE ECG COMPLETE ECG Routine Drug therapy Expected: 04/19/2023, Expires: 04/19/2024 [facility] Work Phone: Comment on above: Expected: 04/19/2023 , Expires: 04/19/2024 Start: 03-09-2023 End: 05-09-2023 TOXASSURE FLEX 23, URINE TOXASSURE FLEX 23, URINE Lab Routine Expected: 03/09/2023, Expires: 05/09/2023 [facility] Work Phone: Comment on above: Expected: 03/09/2023 , Expires: 05/09/2023 Start: 10-31-2022 DEPRESSION ASSESSMENT DEPRESSION ASS ESSMENT [facility] Start: 07-01-2022 Influenza vaccination [facility] Start: 01-07-2022 COVID-19 VACCINE (3 - Booster for Omar series) COVID-19 VACCINE (3 - Booster for Omar series) [facility] Start: 11-04-2021 COVID-19 VACCINE (3 - Booster for Omar series) COVID-19 VACCINE (3 - Booster for Omar series) [facility] Start: 10-31-2021 DEPRESSION ASSESSMENT DEPRESSION ASS ESSMENT [facility] Start: 07-01-2021 Influenza vaccination INFLUENZA (#1) [facility] Start: 2021 PROSTATE CANCER SCREENING DISCUSSION PROSTATE CANCER SCREENING DISCUSSION [facility] Start: 2021 Prostate specific antigen measurement Prostate Cancer Screening Discussion [facility] Start: 01-24-2016 SHINGRIX VACCINE (1 of 2) SHINGRIX VACCINE (1 of 2) [facility] Start: 01-24-2016 Zoster Vaccines (1 o f 2) Zoster Vaccines (1 of 2) [facility] Start: 07-19-2011 Provider Instruction s for [...] Start: 2011 COLOGUARD (FIT-DNA) COLOGUARD (FIT-D NA) [facility] Start: 2011 Colonoscopy COLONOSCOPY [facility] Start: 2011 COLORECTAL CANCER SCREENING COLORECTAL CANCER SCREENING [facility] Start: [address] COLONOGRAPHY [facility] Start: 2011 DIABETES SCREEN DIABETES SCREEN [facility] Start: 2011 Diabetes Screening Diabetes Screenin g [facility] Start: 2011 FECAL OCCULT BLOOD FECAL OCCULT BLOO D [facility] Start: 2011 Screening for malign ant neoplasm of colon [facility] Start: 2011 SIGMOIDOSCOPY SIGMOIDOSCOPY [facility] Start: 03-13-2009 Urnls dip stick/tabl et rgnt non-auto w/o micrscp Urinalysis, Office (12862) [facility] Work Phone: Start: 03-10-2009 Comprehensive metabo lic panel METABOLIC PANEL, COMPREHENSIVE (86228) [facility] Work Phone: Start: 03-10-2009 Blood count manual c ell count each CBC WITH MANUAL DIFF (23737) [facility] Work Phone: Start: 03-10-2009 Cul bact xcpt urine blood/stool aerobic isol COLIN CULTURE-OTHER (03500) [facility] Work Phone: Start: 03-10-2009 Cul bact stool aerob ic isol salmonella&shigell COLIN CULTURE-STOOL (65063) [facility] Work Phone: Start: 03-10-2009 Leukocyte assmt feca l qual/semiquantitative LEUKOCYTE COUNT, FECAL (41862) [facility] Work Phone: Start: 03-10-2009 Ova&parasites direct smears concentration & id OVA & PARASITE DIR SMEAR (71857) [facility] Work Phone: Start: 03-10-2009 Culture bacterial an y source anaerobic iso&id [facility] Work Phone: Start: 12-21-2007 Lipid panel LIPID PANEL (23730) [facility] Work Phone: Comment [...] 08-24-2007 Blood count complete automated CBC (Auto) (09382) [facility] Work Phone: Comment on above: dx drug monitor Start: 08-24-2007 Assay of creatine Creatine (41552) [facility]; [facility] Work Phone: Comment on above: dx drug monitor Start: 08-24-2007 Creatinine [Mass/Vol] Creatine (8254 0) [facility] Work Phone: Comment on above: dx drug monitor Start: 08-16-2007 Provider Instruction s for Treatment FOLLOW UP TOMORROW [facility] Work Phone: Start: 08-14-2007 Glucose [Mass/Vol] Glucose, PP /2 Hour (59416) [facility] Work Phone: Start: 08-14-2007 Glucose quantitative blood xcpt reagent strip Glucose, PP/2 Hour (30589) [facility]; [facility] Work [...] y source anaerobic iso&id BACT CULTURE ANY-ANAEROBIC (77976) [facility] Work Phone: Start: 07-24-2007 Cul bact xcpt urine blood/stool aerobic isol COLIN CULTURE-OTHER (01774) [facility] Work Phone: Start: 07-18-2007 Provider Instruction s for Treatment FOLLOW UP TOMORROW [facility] Work Phone: Start: 01-28-2007 Nursing Care Education IV [facility] Work Phone: Start: 2001 Lipid 1996 panel - Serum or Plasma Lipid Screening [facility] Start: 2001 Lipid panel Lipid Screening [facility] Start: 2001 LIPID SCREEN LIPID SCREEN [facility] Start: 1985 Hepatitis B Vaccine (1 of 3 - 19+ 3-dose series) Hepatitis B Vaccine (1 of 3 - 19+ 3-dose series) [facility] Start: 1985 Hepatitis B Vaccines (1 of 3 - 19+ 3-dose series) Hepatitis B Vaccines (1 of 3 - 19+ 3-dose series) [facility] Start: 1985 Urine microalbumin profile [facility] Start: 1985 Urine screening for protein Diabetes: Urine Protein Screening [facility] Start: 01-24-1984 Anxiety Screening Anxiety Screening [facility] Start: 01-24-1984 Depression Screening Depression Scre ening [facility] Start: 01-24-1984 HEPATITIS C SCREENING HEPATITIS C [facility] Start: 01-24-1984 Hepatitis C screening Hepatitis C [facility] Start: 01-24-1984 HIV SCREENING HIV SCREENING [facility] Start: 01-24-1984 HIV screening HIV Screening [facility] Start: 1978 Adult depression screening assessment DEPRESSION SCREENING [facility] Start: 01-24-1976 Glaucoma screening Diabetes: R etinopathy Screening [facility] Start: 01-24-1972 Pneumococcal Vaccine : Pediatrics (0 to 5 Years) and At-Risk Patients (6 to 64 Years) (1 of 2 - PCV) Pneumococcal Vaccine: Pediatrics (0 to 5 Years) and At-Risk Patients (6 to 64 Years) (1 of 2 - PCV) [facility] Start: 1971 COVID-19 VACCINE (#1) COVID-19 VACCI NE (#1) [facility] Start: 1971 COVID-19 VACCINE (1) COVID-19 VACCIN E (1) [facility] Start: 1967 MMR Vaccines (1 of 1 - Standard series) MMR Vaccines (1 of 1 - Standard series) [facility] Start: 1966 Hemoglobin A1c measurement Diabetes: Hemoglobin A1C [facility] Start: 1966 HEPATITIS B (1 of 3 - 3-dose series) HEPATITIS B (1 of 3 - 3-dose series) [facility] Start: 1966 Hepatitis B Vaccine (1 of 3 - 3-dose series) Hepatitis B Vaccine (1 of 3 - 3-dose series) [facility] Start: 1966 HIV screening HIV Screening [facility] Start: 1966 Lipid panel Lipid Panel [facility] Start: 1966 Screening for malign ant neoplasm of colon [facility] Start: 1966 Yearly Adult Physical Yearly Adult P hysical [facility] End: 08-15-2024 CT for calcium scoring WO contrast and CTA W contrast IV Heart and coronary arteries [facility] Work Phone: Comment on above: [...] Phone: [facility] Work Phone: [facility] Immunizations Immunization Date Immunization Notes Care Provider Merlin rodriguez 09-06-2023 influenza virus vaccine, unspecified formulation Ashutosh Hennessy APRN.CNP Work Phone: [facility] 08-18-2022 influenza virus vaccine, unspecified formulation Estela Day PA-C Work Phone: [facility] Payers Date Payer Category Payer Self-pay [id number] 2023 Managed Care (Private) [facility] PLAN [id number] 2023 Private Health Insurance [id number] 2021 Private Health Insurance [id number] 2011 Private Health Insurance [employer] A ETNA CHOICE POS II [id number] 2011-Present [phone] [address] [place] [address] POS [id number] 2004 Unknown 2004 Unknown [facility] AULTCOMP O [id number] 2004-Present [facility] [id number] 2004 Unknown [id number] 1966 Unknown [id number] Private Health Insurance [employer] [id number] Unknown [facility] AULTCOMP [id number] Unknown [id number] Unknown [id number] Unknown [id number] Unknown 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 Tobacco use: Tobacco use: [facility] Work Phone: Tobacco use: Tobacco use: [facility]; [facility] Work Phone: Start: 11-09-2016 End: 01-28-2018 Tobacco smoking status NHIS Never smoked tobacco [facility] Work Phone: Start: 11-09-2016 End: 12-14-2022 Tobacco use and exposure Smokeless tobacco non-user [facility] Work Phone: Start: 1965 Sex Assigned At Not on file [facility] Start: 03-29-2022 End: 02-07-2024 Alcohol intake Ex-drinker (finding) [facility] Start: 03-29-2022 History SDOH Alcohol Frequency 1 [facility] Start: 04-10-2022 End: 08-15-2024 Exposure to SARS-CoV-2 (event) Not sure [facility] Start: 04-20-2023 End: 02-07-2024 Tobacco use panel [facility] National Score (1-100), lower number is lower risk 54 [facility] Start: 1965 Sex Assigned At Male W [facility] Tobacco smoking status KSIS Tobacco smoking consumption unknown [facility] Work Phone: Clinical Notes 04-20-2022 to [...] will do that. documented in this encounter [facility] 08-23-2024 Telephone encounter Note Stated I already had my appt with Dr Negron, so I am cx the FU for next week at . Confirmed that we will do that. [facility] 07-20-2024 Telephone encounter Note Spoke with pt re: need for new Pain Management Dr that will provide POR status and stated he would like to go to Dr. Roblero - [facility] [place]. Referral created and sent to [facility] (AFSH[facility]) team. [facility] 07-20-2024 Miscellaneous Notes Spoke with pt re: need for new Pain Management Dr that will provide POR status and stated he would like to go to Dr. Roblero - [facility] [place]. Referral created and sent to [facility] ([place]) team. documented in this encounter [facility] 06-28-2024 Telephone encounter Note [employer] approved, pt and pharmacy were informed. [facility] 06-28-2024 Miscellaneous Notes [employer] approved, pt and pharmacy were informed. Renewal PA for movantik submitted on CMM to [facility] . documented in this encounter [facility] 06-28-2024 Telephone encounter Note Renewal PA for movantik submitted on CMM to [facility] . [facility] 06-26-2024 Telephone encounter Note Script went to the wrong pharmacy, updated script attached, please review and send Josette Wong RN June 26, 2024 9:24 AM [facility] 06-26-2024 Miscellaneous Notes Script went to the wrong pharmacy, updated script attached, please review and send Josette Wong RN June 26, 2024 9:24 AM documented in this encounter [facility] 06-25-2024 Telephone encounter Note LM on VM regarding form being mailed out to change POR with [facility]. Fred Jean RN June 25, 2024 11:13 AM [facility] 06-25-2024 Miscellaneous Notes CARMINE on VM regarding form being mailed out to change POR with [facility]. Fred Jean RN June 25, 2024 11:13 AM documented in this encounter [facility] 06-25-2024 Telephone encounter Note Patient phones [...] Last UDS: Opioid/non opioid Agreement signed 11/15/23 [facility] DX 01/25/23 03/09/2023 change nucynta to er 250 mg bid due 03/23/2023 04/11/24- Outside approved (Court approved), [facility], may get through [employer] [facility] No results found for: SUMM, PREGAB No results found for: UQNOTE, OPIATEPNMGT, DRUGSCRPAIN Urine Panel: No results found for: UQCANN, UQBNZL, XRC2HHA, UQAMPH, UQMAMP, UQBUPRE, UQNORBUP, UQMTHD, UQEDDP, UQTRAM, UQDTRM, UQFNTL, UQNFTL, UQCODE, UQMORP, UQDCDN, UQHCOD, UQOXYC, UQHMOR, UQOXYM, UQCREA, UQPH, UQSPGR, UQOXID, UQSPQ @FLOW([id number])@ No results found for: SUMM Summary Report (Summary) Date Value Ref Range Status 08/11/2022 FINAL Final Comment: ==== TOXASSURE COMP DRUG ANALYSIS,UR ==== Test Result Flag Units Drug Present and Declared for Prescription Verification Tapentadol >58675 EXPECTED ng/mg creat Source of tapentadol is [...] Please review and advise. Pam Nguyen RN [facility] 06-25-2024 Miscellaneous Notes Patient phones requesting [...] Panel: No results found for: UQCANN, UQBNZL, GIQ7CIO, UQAMPH, UQMAMP, UQBUPRE, UQNORBUP, UQMTHD, UQEDDP, UQTRAM, UQDTRM, UQFNTL, UQNFTL, UQCODE, UQMORP, UQDCDN, UQHCOD, UQOXYC, UQHMOR, UQOXYM, UQCREA, UQPH, UQSPGR, UQOXID, UQSPQ @FLOW([id number])@ No results found for: SUMM Summary Report (Summary) Date Value Ref Range Status 08/11/2022 FINAL Final Comment: ==== TOXASSURE COMP DRUG ANALYSIS,UR ==== Test Result Flag Units Drug Present and Declared for Prescription Verification Tapentadol >22428 EXPECTED ng/mg creat Source of tapentadol is [...] Pam Nguyen RN documented in this encounter [facility] 05-25-2024 Instructions Estela Day PA-C - [...] if you need to have this reprogrammed [phone]. He will continue with core strengthening and range of motion exercises. Follow-up in the office in 3 months Supervising Physiciain - Dr. Rory Schultz MD documented in this encounter [facility] 05-25-2024 Note HNO ID: [id number] Author: ESTELA DAY PA-C Service: ? Author Type: Physician Records Officer Type: Progress Notes Filed: 05/25/2024 08:26 Note Text: This note was created using [employer] Technology Limited[employer]. Subjective Cong Harrison is a 59 year old male. The patient primarily being seen for left leg pain - [facility] Patient was last seen on: 04/04/24 At [...] if you need to have this reprogrammed [phone]. He will continue with core strengthening and range of motion exercises. Follow-up in the office in 3 months - TAPENTADOL 100 MG TABLET (Two stable chronic illnesses/prescription drug management) 2. Complex regional pain syndrome type 1 of right lower extremity - [facility] - ICD9: 337.22, ICD10: G90.521 3. Osteoarthritis of right knee, unspecified osteoarthritis type - [facility] - ICD9: 715.96, ICD10: M17.11 4. Psychogenic pain - [facility] - ICD9: 307.80, (more content not included)... [facility] 05-25-2024 History of Presen t illness Narrative This note was created using [employer] Limited[employer]. Subjective Cong Harrison is a 59 year old male. The patient primarily being seen for left leg pain - [facility] Patient was last seen on: 04/04/24 At [...] type 1 of left lower extremity - [facility] - ICD9: 337.22, ICD10: G90.522 (primary diagnosis) [...] if you need to have this reprogrammed [phone]. He will continue with core strengthening and range of motion exercises. Follow-up in the office in 3 months - TAPENTADOL 100 MG TABLET (Two stable chronic illnesses/prescription drug management) 2. Complex regional pain syndrome type 1 of right lower extremity - C - ICD9: 337.22, ICD10: G90.521 3. Osteoarthritis of right knee, unspecified osteoarthritis type - [facility] - ICD9: 715.96, ICD10: M17.11 4. Psychogenic pain - [facility] - ICD9: 307.80, ICD10: F45.42 Estela Day PA-C documented in this encounter [facility] 05-25-2024 Nurse Note Nucynta this am/ Cymbalta this am/ Prilosec this am/ Hytrin last pm/ [employer] am Meds help pain Denies side effects SCS, 23/05-helpful Last uds-04/04/24 [facility] 05-25-2024 Nurse Note Nucynta this am/ Cymbalta this am/ Prilosec this am/ Hytrin last pm/ [employer] am Meds help pain Denies side effects SCS, 23/05-helpful Last uds-04/04/24 documented in this encounter [facility] 05-23-2024 Telephone encounter Note No response from [employer] or pt to proceed with C9 for car carrier for scooter. Spoke with pt who stated I haven't heard anything from them either Called and spoke with [employer], stated pt told us he is almost [...] of getting the carrier. Stated I understand. [facility] 05-23-2024 Miscellaneous Notes No response from [employer] or pt to proceed with C9 [...] Spoke with Juanis Morton who suggested calling [employer] for actual equipment code. Called [employer], left message for Rep to send the codes or call back with information to fill out C9. documented in this encounter [facility] 05-08-2024 Telephone encounter Note Spoke with @ [employer] after not hearing from them, asked if there was a decision made on what car carrier and cover were needed for the scooter, stated they were not sure, will look into this and return the call. Direct number given. [facility] 05-02-2024 Telephone encounter Note Talked to patient and he verbally understands his chest xray was remarkable. Joselito Ruffin [facility] 05-02-2024 Miscellaneous Notes Talked to patient and he verbally understands his chest xray was remarkable. Joselito Ruffin Please inform patient that chest x-ray is unremarkable. Prescription sent to [facility]. Ashutosh Hennessy APRN.BRET documented in this encounter [facility] 05-02-2024 Telephone encounter Note Please inform patient that chest x-ray is unremarkable. Prescription sent to [facility]. Ashutosh Hennessy APRN.CNP [facility] 05-02-2024 History of Presen t illness [...] PATIENT PRESENTS WITH AN IMPLANTABLE OR ATTACHED POSTMASTER RELIEF: No RADIOLOGY DEPARTMENT: General X-ray: Exam(s) Completed: Chest X-Ray PERIPHERAL IV DATA: Not applicable SIGNED BY: RT Radha(Dinesh) May 02, 2024 5:53 PM documented in this encounter [facility] 05-02-2024 Note HNO ID: [id number] Author: BANDAR DUPREE RT(R) Service: ? Author Type: Research Recruiter Type: Progress Notes Filed: 05/02/2024 18:01 Note [...] PATIENT PRESENTS WITH AN IMPLANTABLE OR ATTACHED POSTMASTER RELIEF: No RADIOLOGY DEPARTMENT: General X-ray: Exam(s) Completed: Chest X-Ray PERIPHERAL IV DATA: Not applicable SIGNED BY: RT Radha(Dinesh) May 02, 2024 5:53 PM [facility] 05-02-2024 Note HNO ID: [id number] Author: ASHUTOSH HENNESSY APRN.NUTRITION WORKER Service: ? Author Type: Nurse Practitioner Type: [...] worsening, or sympt (more content not included)... [facility] 05-02-2024 History of Presen t illness Narrative [...] of care. This note was generated using Hivelocity software. It may contain errors in wording, punctuation, or spelling. Ashutosh Hennessy APRN.BRET documented in this encounter [facility] 04-26-2024 Telephone encounter Note VM received from pt requesting a C9 for the (approved) scooter carrier and cover. Spoke with Juanis / Selene who suggested calling [employer] for actual equipment code. Called [employer], left message for Rep to send the codes or call back with information to fill out C9. [facility] 04-04-2024 Telephone encounter Note Cong here today for FUOV asking if we heard from [employer] or the [employer] company about his WC. Spoke with Juanis [...] Spoke with pt and informed of update. [facility] 04-04-2024 Miscellaneous Notes Cong here today for FUOV asking if we heard from [employer] or the [employer] company about his WC. Spoke with Juanis [...] informed of update. documented in this encounter [facility] 04-04-2024 Dawit Regalado MD - 04/04/2024 [...] 6 weeks time. documented in this encounter [facility] 04-04-2024 History of Presen t illness Narrative This note was created using [employer]. Subjective Cong Harrison is a 59 year old male. The patient primarily being seen for left leg pain - [facility] Patient was last seen on: 02/07/24 At [...] type 1 of left lower extremity - [facility] - ICD9: 337.22, ICD10: G90.522 (primary diagnosis) - TOXASSURE FLEX 23, URINE 2. Complex regional pain syndrome type 1 of right lower extremity - [facility] - ICD9: 337.22, ICD10: G90.521 3. Osteoarthritis of right knee, unspecified osteoarthritis type - [facility] - ICD9: 715.96, ICD10: M17.11 4. Psychogenic pain - [facility] - ICD9: 307.80, ICD10: F45.42 PLAN: Repeat [...] Dawit Hernandez MD documented in this encounter [facility] 04-04-2024 Note HNO ID: [id number] Author: DAWIT HERNANDEZ MD Service: ? Author Type: Anesthesiologist Type: Progress Notes Filed: 04/05/2024 07:43 Note Text: This note was created using [employer]. Subjective Cong Harrison is a 59 year old male. The patient primarily being seen for left leg pain - [facility] Patient was last seen on: 02/07/24 At [...] errors. Chavez Stinson (more content not included)... [facility] 03-19-2024 Telephone encounter Note The following approved medication requests have been transmitted electronically. Requested Prescriptions Signed Prescriptions Disp Refills tapentadol (NUCYNTA) 100 mg tab 120 tablet 0 Sig: Take 1 tablet by mouth every 6 hours as needed for up to 30 days. Authorizing Provider: ESTELA DAY PA-C [facility] 03-19-2024 Miscellaneous Notes The following approved [...] wrong pharmacy. Called and cancelled script t [facility] pharmacy. New script attached to go to [facility]. Tuyet Randolph RN documented in this encounter [facility] 03-19-2024 Telephone encounter Note Patient called and stated that nucynta script was sent to the wrong pharmacy. Called and cancelled script aqt [facility] pharmacy. New script attached to go to [facility]. Tuyet Randolph RN [facility] 03-19-2024 Telephone encounter Note The following approved medication requests have been transmitted electronically. Requested Prescriptions Signed Prescriptions Disp Refills tapentadol (NUCYNTA) 100 mg tab 120 tablet 0 Sig: Take 1 tablet by mouth every 6 hours as needed for up to 30 days. Authorizing Provider: ESTELA DAY PA-C [facility] 03-19-2024 Miscellaneous Notes The following approved [...] mg bid due 03/23/2023 12/27/23 - See oracle reports developer letter (imported 12/26) for support of power WC 01/25/24 Power wheelchair was denied. No results found for: SUMM, PREGAB No results found for: UQNOTE, OPIATEPNMGT, DRUGSCRPAIN Urine Panel: No results found for: UQCANN, UQBNZL, FFH3PCE, UQAMPH, UQMAMP, UQBUPRE, UQNORBUP, UQMTHD, UQEDDP, UQTRAM, UQDTRM, UQFNTL, UQNFTL, UQCODE, UQMORP, UQDCDN, UQHCOD, UQOXYC, UQHMOR, UQOXYM, UQCREA, UQPH, UQSPGR, UQOXID, UQSPQ @FLOW([id number])@ No results found for: SUMM Summary Report (Summary) Date Value Ref Range Status 08/11/2022 FINAL Final Comment: ==== TOXASSURE COMP DRUG ANALYSIS,UR ==== Test Result Flag Units Drug Present and Declared for Prescription Verification Tapentadol >53784 EXPECTED ng/mg creat Source of tapentadol is [...] Tuyet Randolph RN documented in this encounter [facility] 03-19-2024 Telephone encounter Note Patient phones [...] mg bid due 03/23/2023 12/27/23 - See oracle reports developer letter (imported 12/26) for support of power WC 01/25/24 Power wheelchair was denied. No results found for: SUMM, PREGAB No results found for: UQNOTE, OPIATEPNMGT, DRUGSCRPAIN Urine Panel: No results found for: UQCANN, UQBNZL, [id number], UQAMPH, UQMAMP, UQBUPRE, UQNORBUP, UQMTHD, UQEDDP, UQTRAM, UQDTRM, UQFNTL, UQNFTL, UQCODE, UQMORP, UQDCDN, UQHCOD, UQOXYC, UQHMOR, UQOXYM, UQCREA, UQPH, UQSPGR, UQOXID, UQSPQ @FLOW([id number])@ No results found for: SUMM Summary Report (Summary) Date Value Ref Range Status 08/11/2022 FINAL Final Comment: ==== TOXASSURE COMP DRUG ANALYSIS,UR ==== Test Result Flag Units Drug Present and Declared for Prescription Verification Tapentadol >67072 EXPECTED ng/mg creat Source of tapentadol is [...] Please review and advise. Tuyet Randolph RN [facility] 02-27-2024 Telephone encounter Note The following [...] once daily as needed. Estela Day PA-C [facility] 02-27-2024 Miscellaneous Notes The following approved [...] mg bid due 03/23/2023 12/27/23 - See oracle reports developer letter (imported 12/26) for support of power WC 01/25/24 Power wheelchair was denied. No results found for: SUMM, PREGAB No results found for: UQNOTE, OPIATEPNMGT, DRUGSCRPAIN Urine Panel: No results found for: UQCANN, UQBNZL, NOA4PCY, UQAMPH, UQMAMP, UQBUPRE, UQNORBUP, UQMTHD, UQEDDP, UQTRAM, UQDTRM, UQFNTL, UQNFTL, UQCODE, UQMORP, UQDCDN, UQHCOD, UQOXYC, UQHMOR, UQOXYM, UQCREA, UQPH, UQSPGR, UQOXID, UQSPQ @FLOW([id number])@ No results found for: SUMM Summary Report (Summary) Date Value Ref Range Status 08/11/2022 FINAL Final Comment: ==== TOXASSURE COMP DRUG ANALYSIS,UR ==== Test Result Flag Units Drug Present and Declared for Prescription Verification Tapentadol >56276 EXPECTED ng/mg creat Source of tapentadol is [...] Pam Nguyen RN documented in this encounter [facility] 02-27-2024 Telephone encounter Note Patient phones [...] mg bid due 03/23/2023 2/27/24 - See oracle reports developer letter (imported 12/26) for support of power WC 01/25/24 Power wheelchair was denied. No results found for: SUMM, PREGAB No results found for: UQNOTE, OPIATEPNMGT, DRUGSCRPAIN Urine Panel: No results found for: UQCANN, UQBNZL, [id number], UQAMPH, UQMAMP, UQBUPRE, UQNORBUP, UQMTHD, UQEDDP, UQTRAM, UQDTRM, UQFNTL, UQNFTL, UQCODE, UQMORP, UQDCDN, UQHCOD, UQOXYC, UQHMOR, UQOXYM, UQCREA, UQPH, UQSPGR, UQOXID, UQSPQ @FLOW([id number])@ No results found for: SUMM Summary Report (Summary) Date Value Ref Range Status 08/11/2022 FINAL Final Comment: ==== TOXASSURE COMP DRUG ANALYSIS,UR ==== Test Result Flag Units Drug Present and Declared for Prescription Verification Tapentadol >80098 EXPECTED ng/mg creat Source of tapentadol is [...] Please review and advise. Pam Nguyen RN [facility] 02-07-2024 Instructions Estela Day PA-C - [...] if you need to have this reprogrammed [phone]. He will continue with core strengthening and range of motion exercises. Follow-up in the office in [address] Hernandez I discussed the patient with Dr. Hernandez who agrees with my assessment and plan. All of the above is to improve functionality and quality of life. No evidence of drug abuse or diversion is seen at this time. documented in this encounter [facility] 02-07-2024 History of Presen t illness Narrative This note was created using [employer]. Subjective Cong Harrison is a 59 year old male. The patient primarily being seen for left leg pain - [facility] Patient was last seen on: 12/27/23 At [...] if you need to have this reprogrammed [phone]. He will continue with core strengthening and range of motion exercises. Follow-up in the office in [address] Hernandez 2. Complex regional pain syndrome type 1 of right lower extremity - ICD9: 337.22, ICD10: G90.521 3. Osteoarthritis of right knee, unspecified osteoarthritis type - [facility] - ICD9: 715.96, ICD10: M17.11 4. Psychogenic pain - [facility] - ICD9: 307.80, ICD10: F45.42 Estela Day PA-C documented in this encounter [facility] 02-07-2024 Note HNO ID: [id number] Author: ESTELA DAY PA-C Service: ? Author Type: Physician Records Officer Type: Progress Notes Filed: 02/07/2024 08:41 Note Text: This note was created using NoteWriter. Subjective Cong Harrison is a 59 year old male. The patient primarily being seen for left leg pain - [facility] Patient was last seen on: 12/27/23 At [...] if you need to have this reprogrammed [phone]. He will continue with core strengthening and range of motion exercises. Follow-up in the office in [address] Hernandez 2. Complex regional pain syndrome type 1 of right lower extremity - ICD9: 337.22, ICD10: G90.521 3. Osteoarthritis of right knee, unspecified osteoarthritis type - [facility] - ICD9: 715.96, ICD10: M17.11 4. Psychogenic pain - [facility] - ICD9: 307.80, ICD10: F45.42 Estela Day PA-C [facility] 01-20-2024 Miscellaneous Notes The following approved medication [...] mg bid due 03/23/2023 12/27/23 - See oracle reports developer letter (imported 12/26) for support of power WC No results found for: SUMM, PREGAB No results found for: UQNOTE, OPIATEPNMGT, DRUGSCRPAIN Urine Panel: No results found for: UQCANN, UQBNZL, TFU2LOS, UQAMPH, UQMAMP, UQBUPRE, UQNORBUP, UQMTHD, UQEDDP, UQTRAM, UQDTRM, UQFNTL, UQNFTL, UQCODE, UQMORP, UQDCDN, UQHCOD, UQOXYC, UQHMOR, UQOXYM, UQCREA, UQPH, UQSPGR, UQOXID, UQSPQ @FLOW([id number])@ No results found for: SUMM Summary Report (Summary) Date Value Ref Range Status 08/11/2022 FINAL Final Comment: ==== TOXASSURE COMP DRUG ANALYSIS,UR ==== Test Result Flag Units Drug Present and Declared for Prescription Verification Tapentadol >27947 EXPECTED ng/mg creat Source of tapentadol is [...] Tuyet Randolph RN documented in this encounter [facility] 01-12-2024 Miscellaneous Notes The following approved [...] mg bid due 03/23/2023 12/27/23 - See oracle reports developer letter (imported 12/26) for support of power WC No results found for: SUMM, PREGAB No results found for: UQNOTE, OPIATEPNMGT, DRUGSCRPAIN Urine Panel: No results found for: UQCANN, UQBNZL, UND9HUV, UQAMPH, UQMAMP, UQBUPRE, UQNORBUP, UQMTHD, UQEDDP, UQTRAM, UQDTRM, UQFNTL, UQNFTL, UQCODE, UQMORP, UQDCDN, UQHCOD, UQOXYC, UQHMOR, UQOXYM, UQCREA, UQPH, UQSPGR, UQOXID, UQSPQ @FLOW([id number])@ No results found for: SUMM Summary Report (Summary) Date Value Ref Range Status 08/11/2022 FINAL Final Comment: ==== TOXASSURE COMP DRUG ANALYSIS,UR ==== Test Result Flag Units Drug Present and Declared for Prescription Verification Tapentadol >49325 EXPECTED ng/mg creat Source of tapentadol is [...] Josette Wong RN documented in this encounter [facility] 12-27-2023 Instructions Estela Day PA-C - [...] if you need to have this reprogrammed [phone]. He will continue with core strengthening and [...] at this time. documented in this encounter [facility] 12-27-2023 Note HNO ID: [id number] Author: ESTELA DAY PA-C Service: ? Author Type: Physician Records Officer Type: Progress Notes Filed: 12/27/2023 08:56 Note Text: This note was created using NoteWriter. Subjective Cong Harrison is a 58 year old male. The patient primarily being seen for left leg pain - [facility] Patient was last seen on: 11/15/23 At [...] He is worried about his medications because [facility]'s payment system is currently down and he [...] with the patien (more content not included)... [facility] 12-27-2023 History of Presen t illness Narrative This note was created using NoteWriter. Subjective Cong Harrison is a 58 year old male. The patient primarily being seen for left leg pain - [facility] Patient was last seen on: 11/15/23 At [...] He is worried about his medications because [facility]'s payment system is currently down and he [...] if you need to have this reprogrammed [phone]. He will continue with core strengthening and range of motion exercises. Follow-up in office in 6 weeks time. We will continue to work on getting a power wheelchair to assist him when he has to walk longer distances. 2. Complex regional pain syndrome type 1 of right lower extremity - ICD9: 337.22, ICD10: G90.521 3. Osteoarthritis of right knee, unspecified osteoarthritis type - [facility] - ICD9: 715.96, ICD10: M17.11 4. Psychogenic pain - [facility] - ICD9: 307.80, ICD10: F45.42 Estela Day PA-C documented in this encounter [facility] 11-15-2023 Note HNO ID: [id number] Author: ESTELA DAY PA-C Service: ? Author Type: Physician Records Officer Type: Progress Notes Filed: 11/15/2023 09:00 Note Text: This note was created using [employer]. Subjective Cong Harrison is a 58 year old male. The patient primarily being seen for left leg pain [facility] Patient was last seen on: 10/05/23 At [...] if you need to have this reprogrammed [phone]. He will continue with core strengthening and range of motion exercises. Follow-up in office in 6 weeks time. We will continue to work on getting a power wheelchair to assist him when he has to walk longer distances. - TAPENTADOL 100 MG TABLET (Two stable chronic illnesses/prescription d (more content not included)... [facility] 10-05-2023 Instructions Estela Day PA-C - 10/05/2023 [...] if you need to have this reprogrammed [phone]. He will continue with core strengthening and [...] at this time. documented in this encounter [facility] 10-05-2023 Note HNO ID: [id number] Author: Estela Day PA-C Service: ? Author Type: Physician Records Officer Type: Progress Notes Filed: 10/05/2023 8:25 AM Note Text: This note was created using [employer]. Subjective Cong Harrison is a 58 year old male. The patient primarily being seen for left leg pain-[facility] Patient was last seen on: 08/24/23 [...] if you need to have this reprogrammed [phone]. He w (more content not included)... [facility] 10-05-2023 History of Presen t illness Narrative This note was created using [employer]. Subjective Cong Harrison is a 58 year old male. The patient primarily being seen for left leg pain-[facility] Patient was last seen on: 08/24/23 [...] if you need to have this reprogrammed [phone]. He will continue with core strengthening and [...] 715.96, ICD10: M17.11 4. Psychogenic pain - [facility] - ICD9: 307.80, ICD10: F45.42 Estela Day PA-C documented in this encounter [facility] 09-26-2023 Miscellaneous Notes The following approved [...] Norma Sharma RN documented in this encounter [facility] 09-20-2023 Miscellaneous Notes Addended by: ESTELA DAY on: 09/20/2023 12:41 PM Modules accepted: Orders Call was received from [facility] that they need an order for PT for the wheelchair evaluation, not OT. The order was changed and faxed to [phone]. Order with approval was faxed to [facility] per pt request, 09/16/23 @ [id number]. Pt informed. Noted, and signed. Process for [facility] coverage of powerchair request started and per [facility], needs a OT Eval 1st before request can be made for powerchair. Also stated [facility] will decide on powerchair company once request is made. Explained to pt who requested OT Eval be done at [facility] (fax for order [phone]). Just needs order signed. documented in this encounter [facility] 07-19-2023 Miscellaneous Notes The following approved [...] Ashley Stratton RN documented in this encounter [facility] 07-13-2023 Instructions Estela Day PA-C - [...] if you need to have this reprogrammed [phone]. He will continue with core strengthening and [...] at this time. documented in this encounter [facility] 07-13-2023 History of Presen t illness Narrative This note was created using [employer]. Subjective Cong Harrison is a 58 year old male. The patient primarily being seen for left leg pain-[facility] Patient was last seen on: 06/01/23 [...] if you need to have this reprogrammed [phone]. He will continue with core strengthening and [...] Estela Day PA-C documented in this encounter [facility] 06-01-2023 Instructions Estela Day PA-C - [...] if you need to have this reprogrammed [phone]. He will continue with core strengthening and range of motion exercises. Follow-up in office in 6 weeks time. I discussed the patient with Dr. Hernandez who agrees with my assessment and plan. All of the above is to improve functionality and quality of life. No evidence of drug abuse or diversion is seen at this time. documented in this encounter [facility] 06-01-2023 History of Presen t illness Narrative This note was created using [employer] / [employer]. Subjective Cong Harrison is a 58 year old male. The patient primarily being seen for left leg pain-[facility] Patient was last seen on: 04/20/23 [...] type 1 of left lower extremity - [facility] - ICD9: 337.22, ICD10: G90.522 (primary diagnosis) The [facility] report has been reviewed and is consistent with the patients medical history and medication intake. He will continue with Nucynta, duloxetine, terazosin, omeprazole, eszopiclone, Movantik, and MiraLAX. Patient was encouraged to increase fluid and fiber intake. He will continue using his spinal cord stimulator. Call Maggy if you need to have this reprogrammed [phone]. He will continue with core strengthening and range of motion exercises. Follow-up in office in 6 weeks time. 2. Complex regional pain syndrome type 1 of right lower extremity - [facility] - ICD9: 337.22, ICD10: G90.521 3. Osteoarthritis of right knee, unspecified osteoarthritis type - [facility] - ICD9: 715.96, ICD10: M17.11 4. Psychogenic pain - [facility] - ICD9: 307.80, ICD10: F45.42 Estela Day PA-C documented in this encounter [facility] 05-30-2023 Miscellaneous Notes The following approved [...] Norma Sharma, RN documented in this encounter [facility] 04-22-2023 Miscellaneous Notes The following approved medication requests have been transmitted electronically. Requested Prescriptions Pending Prescriptions Disp Refills tapentadol (NUCYNTA) 100 mg tab 120 tablet 0 Sig: Take 1 tablet by mouth every 6 hours as needed for up to 30 days. Estela Day PA-C Med should be at [facility] documented in this encounter [facility] 04-21-2023 Miscellaneous Notes Pt informed methadone should not be filled, switched back to nucynta IR documented in this encounter [facility] 04-21-2023 Miscellaneous Notes The following approved [...] go back to previous dosing, and that [facility] said the nucynta ER denial would need appealed with the oracle reports developer, stated ok. Go back to nucynta 100 mg q 6 VM received stating I need a PA for my methadone. Explained per EKG, is now contraindicated (prolonged Q wave), cannot take this. Called [facility] pharmacy and explained this and 4 other preferred medications were tried and failed you can try the tramadol er or hysingla, per Pharmacy. Explained tramadol would not be strong enough and with Hysingla, per [facility] Pharmacist, the maufacturer only has a limited supply, is getting harder to get. Discussed this with [facility] who stated we are seeing this too, we need proof that he was on norco (this was over 10 years ago, records no longer available, this should be in their billing records) and norco didn't help him in the past, the ER would most likely not help either, who then stated he can appeal the nucynta ER with his oracle reports developer, the nucynta IR is still available. What should he be on next? documented in this encounter [facility] 04-20-2023 Instructions Dawit Hernandez MD - [...] 6 weeks time. documented in this encounter [facility] 04-20-2023 History of Presen t illness Narrative This note was created using [employer]. Subjective Cong Harrison is a 58 year old male. The patient primarily being seen for left leg pain - [facility] Patient was last seen on: 03/09/23 At that time, the treatment plan was: see notes Current Meds: Nucynta - last dose 4 days ago - [facility] wants med switched to Methadone - he [...] type 1 of left lower extremity - [facility] - ICD9: 337.22, ICD10: G90.522 (primary diagnosis) 2. Osteoarthritis of right knee, unspecified osteoarthritis type - [facility] - ICD9: 715.96, ICD10: M17.11 3. Psychogenic pain - [facility] - ICD9: 307.80, ICD10: F45.42 PLAN: Patient [...] Dawit Hernandez MD documented in this encounter [facility] 04-19-2023 Miscellaneous Notes Pt went to [facility] to have EKG done but EKG person not there after 2pm. Suggested having it done at [facility] in the am when here for FU, stated he would do that. Spoke with pt and explained medication switch to methadone, and that EKG is needed 1st (requesting to have done @ [facility]), will send order over today, to [...] needed), resent 04/15, no reply until today ([facility] closed 04/18), pt has been out of this med since Sat.. [facility] is still denying it saying he has [...] a day to get in), and the asbestos pipe supervisor has a very low inventory of the 100 and 120mg). What can he be switched to? documented in this encounter [facility] 04-15-2023 Miscellaneous Notes The following approved [...] Norma Sharma RN documented in this encounter [facility] 03-10-2023 Miscellaneous Notes The following approved medication requests have been transmitted electronically. Requested Prescriptions Pending Prescriptions Disp Refills naloxone 4 mg/actuation nasal spray (NARCAN) 1 Each 0 Sig: Use 1 spray in one nostril as needed for overdose. May repeat every 2 to 3 min in alternating nostrils until medical assistance is available Estela Day PA-C Sent to [facility] pharmacy Patient phones requesting refills as follows: Requested Prescriptions Pending Prescriptions Disp Refills naloxone 4 mg/actuation nasal spray (NARCAN) 1 Each 0 Sig: Use 1 spray in one nostril as needed for overdose. May repeat every 2 to 3 min in alternating nostrils until medical assistance is available Please review and advise. Ashley Stratton RN documented in this encounter [facility] 03-09-2023 Instructions Dawit Hernandez MD - [...] 6 weeks time. documented in this encounter [facility] 03-09-2023 History of Presen t illness Narrative This note was created using [employer]. Subjective Cong Harrison is a 58 year old male. The patient primarily being seen for left leg pain - [facility] Patient was last seen on: 01/26/23 At [...] type 1 of left lower extremity - [facility] - ICD9: 337.22, ICD10: G90.522 (primary diagnosis) 2. Osteoarthritis of right knee, unspecified osteoarthritis type - [facility] - ICD9: 715.96, ICD10: M17.11 3. Psychogenic pain - [facility] - ICD9: 307.80, ICD10: F45.42 PLAN: Repeat [...] Dawit Hernandez MD documented in this encounter [facility] 02-21-2023 Miscellaneous Notes The following approved [...] Norma Sharma RN documented in this encounter [facility] 01-26-2023 Instructions Dawit Hernandez MD - 01/26/2023 8:24 AM EDT The patient will continue with Nucynta, Cymbalta, terazosin, omeprazole, Lunesta, and Movantik. He was encouraged to increase fluid and fiber intake. Continue with core strengthening and range of motion exercises. Weight reduction. We will arrange reprogramming with [employer] employee's representative. He would like to have his spinal cord stimulator therapy optimized before we make any changes on his medications. Follow-up in office in 6 weeks time. documented in this encounter [facility] 01-26-2023 History of Presen t illness Narrative This note was created using [employer]. Subjective Cong Harrison is a 58 year old male. The patient primarily being seen for left leg pain - [facility] Patient was last seen on: 12/14/22 At [...] its own. He is supposed to meet [employer] employee's representative for reprogramming Review of Systems Constitutional: [...] Reflex sympathetic dystrophy of right leg - [facility] - ICD9: 337.22, ICD10: G90.521 (primary diagnosis) The patient will continue with Nucynta, Cymbalta, terazosin, omeprazole, Lunesta, and Movantik. He was encouraged to increase fluid and fiber intake. Continue with core strengthening and range of motion exercises. Weight reduction. We will arrange reprogramming with [employer] employee's representative. He would like to have his spinal cord stimulator therapy optimized before we make any changes on his medications. Follow-up in office in 6 weeks time. 2. Complex regional pain syndrome type 1 of left lower extremity - [facility] - ICD9: 337.22, ICD10: G90.522 3. Osteoarthritis of right knee, unspecified osteoarthritis type - [facility] - ICD9: 715.96, ICD10: M17.11 31 minute visit Greater than two stable chronic illness and prescription medication management. This document was transcribed using a voice recognition software and may contain minor errors. Dawit Hernandez MD documented in this encounter [facility] 01-12-2023 Miscellaneous Notes The following approved [...] Ashley Stratton RN documented in this encounter [facility] 12-21-2022 Miscellaneous Notes The following approved [...] Ashley Stratton RN documented in this encounter [facility] 12-14-2022 Instructions Estela Day PA-C - [...] at this time. documented in this encounter [facility] 12-14-2022 History of Presen t illness Narrative This note was created using [employer]. Subjective Cong Harrison is a 57 year old male. The patient primarily being seen for [facility] left leg pain Patient was last seen [...] Estela Day PA-C documented in this encounter [facility] 11-02-2022 Instructions Estela Day PA-C - [...] at this time. documented in this encounter [facility] 11-02-2022 History of Presen t illness Narrative This note was created using NoteWriter. Subjective Cong E Harrison is a 57 year old male. The patient primarily being seen for left leg pain - [facility] Patient was last seen on: At that [...] Estela Day PA-C documented in this encounter [facility] 10-26-2022 Miscellaneous Notes The following approved [...] Norma Sharma RN documented in this encounter [facility] 10-18-2022 Miscellaneous Notes The following approved [...] Ashley Stratton RN documented in this encounter [facility] 08-24-2022 Miscellaneous Notes The following approved [...] Ashley Stratton RN documented in this encounter [facility] 07-12-2022 Miscellaneous Notes The following approved [...] Ashley Stratton RN documented in this encounter [facility] 07-01-2022 Miscellaneous Notes The following approved [...] as needed. Estela Day PA-C Sent to [facility] pharmacy 06/30/22 Requested Prescriptions Pending Prescriptions Disp [...] Ashley Stratton RN documented in this encounter [facility] 06-30-2022 Miscellaneous Notes The following approved [...] Ashley Stratton RN documented in this encounter [facility] 06-28-2022 Instructions Estela Day PA-C - [...] at this time. documented in this encounter [facility] 06-28-2022 History of Presen t illness Narrative This note was created using [employer]. Subjective Cong Harrison is a 57 year old male. The patient primarily being seen for left leg pain - [facility] Patient was last seen on: 05/17/22 At [...] Estela Day PA-C documented in this encounter [facility] 06-22-2022 Miscellaneous Notes The following approved [...] Ashley Stratton RN documented in this encounter [facility] 05-17-2022 Miscellaneous Notes Summary: handicap placard An order was sent for a handicap placard for the patient. Pt request order for handicap placard mailed to him Please review and advise. Ashley Stratton RN documented in this encounter [facility] 05-17-2022 Instructions Estela Day PA-C - [...] at this time. documented in this encounter [facility] 05-17-2022 History of Presen t illness Narrative This note was created using [employer]. Subjective Cong Harrison is a 57 year old male. The patient primarily being seen for left leg pain - [facility] Patient was last seen on: 03/08/22 At [...] Reflex sympathetic dystrophy of right leg - [facility] - ICD9: 337.22, ICD10: G90.521 (primary diagnosis) [...] Estela Day PA-C documented in this encounter [facility] 04-20-2022 Miscellaneous Notes The following approved [...] Ashley Stratton RN documented in this encounter [facility] Evaluation note Diagnosis Reflex sympathetic dystrophy of right leg- Primary Reflex sympathetic dystrophy of the lower limb [facility] Reflex sympathetic dystrophy of right leg - [facility]- Primary Reflex sympathetic dystrophy of the lower limb Complex regional pain syndrome type 1 of left lower extremity Osteoarthritis of right knee, unspecified osteoarthritis type [facility] Diagnosis Reflex sympathetic dystrophy of right leg- Primary Reflex sympathetic dystrophy of the lower limb [facility] Reflex sympathetic dystrophy of right leg Reflex sympathetic dystrophy of the lower limb [facility] Diagnosis Complex regional pain syndrome type 1 of left lower extremity- Primary Osteoarthritis of right knee, unspecified osteoarthritis type [facility] Diagnosis Reflex sympathetic dystrophy of right leg Reflex sympathetic dystrophy of the lower limb [facility] Diagnosis Complex regional pain syndrome type 1 of left lower extremity- Primary Reflex sympathetic dystrophy of right leg Reflex sympathetic dystrophy of the lower limb Osteoarthritis of right knee, unspecified osteoarthritis type [facility] Diagnosis Reflex sympathetic dystrophy of right leg Reflex sympathetic dystrophy of the lower limb [facility] Diagnosis Reflex sympathetic dystrophy of right leg - [facility]- Primary Reflex sympathetic dystrophy of the lower limb Complex regional pain syndrome type 1 of left lower extremity - [facility] Osteoarthritis of right knee, unspecified osteoarthritis type - [facility] Diagnosis Reflex sympathetic dystrophy of right leg Reflex sympathetic dystrophy of the lower limb [facility] Diagnosis Complex regional pain syndrome type 1 of left lower extremity - [facility]- Primary Osteoarthritis of right knee, unspecified osteoarthritis type - [facility] Psychogenic pain - [facility] Psychogenic pain, site unspecified [facility] Diagnosis Complex regional pain syndrome type 1 of left lower extremity- Primary Reflex sympathetic dystrophy of right leg Reflex sympathetic dystrophy of the lower limb [facility] Diagnosis Drug therapy- Primary Encounter for long-term (current) use of other medications Reflex sympathetic dystrophy of right leg Reflex sympathetic dystrophy of the lower limb [facility] Diagnosis Complex regional pain syndrome type 1 of left lower extremity - [facility]- Primary Osteoarthritis of right knee, unspecified osteoarthritis type - BWC Psychogenic pain - BWC Psychogenic pain, site unspecified [facility] Diagnosis Complex regional pain syndrome type 1 of right lower extremity- Primary [facility] Diagnosis Complex regional pain syndrome type 1 of right lower extremity [facility] Diagnosis Complex regional pain syndrome type 1 of left lower extremity- Primary [facility] Diagnosis Complex regional pain syndrome type 1 of left lower extremity - BWC- Primary Complex regional pain syndrome type 1 of right lower extremity - BWC Osteoarthritis of right knee, unspecified osteoarthritis type - BWC Psychogenic pain - BWC Psychogenic pain, site unspecified [facility] Diagnosis Complex regional pain syndrome type 1 of left lower extremity- Primary Complex regional pain syndrome type 1 of right lower extremity - BWC Osteoarthritis of right knee, unspecified osteoarthritis type - BWC Psychogenic pain - BWC Psychogenic pain, site unspecified [facility] Diagnosis Complex regional pain syndrome type 1 of right lower extremity- Primary Complex regional pain syndrome type 1 of left lower extremity Other secondary osteoarthritis of right knee [facility] Diagnosis Complex regional pain syndrome type 1 of left lower extremity [facility] Diagnosis Complex regional pain syndrome type 1 of left lower extremity- Primary Complex regional pain syndrome type 1 of right lower extremity Osteoarthritis of right knee, unspecified osteoarthritis type - BWC Psychogenic pain - BWC Psychogenic pain, site unspecified [facility] Diagnosis Complex regional pain syndrome type 1 of left lower extremity- Primary Complex regional pain syndrome type 1 of right lower extremity Osteoarthritis of right knee, unspecified osteoarthritis type - BWC Psychogenic pain - B[facility] Psychogenic pain, site unspecified [facility] Diagnosis Complex regional pain syndrome type 1 of left lower extremity documented in this encounter [facility] noteNo assessment information availableWUniversity [facility] Work Phone: Evaluation note* Diagnosis Subacute cough- Primary Cough Subacute cough Cough documented in this encounter [facility] note* Diagnosis Complex regional pain syndrome type 1 of left lower extremity - BWC- Primary Complex regional pain syndrome type 1 of right lower extremity - BWC Osteoarthritis of right knee, unspecified osteoarthritis type - BWC Psychogenic pain - BWC Psychogenic pain, site unspecified [facility] Diagnosis Subacute cough Cough documented in this encounter [facility] note* Diagnosis Type 2 diabetes mellitus with hyperglycemia (Multi) documented in this encounter [facility] Work Phone: Reason for referral (narrative)* Outpatient Procedure (Routine) - Pending Review Specialty Diagnoses / Procedures Referred By Iris carson Referred To [facility] Diagnoses Drug therapy Procedures ECG COMPLETE ECG ROUTINE ECG W/LEAST 12 LDS W/I&R Dawit Hernandez MD [address] [place] [address] [facility] [place] [address] [place] [address] Referral ID Status Reason Start Date Expiration Date Visits Requested Visits Authorized [id number] Pending Review Auto-Generat ed Referral 04/19/2023 04/18/2024 1 1 * Medication Prior Authorization - Closed Specialty Diagnoses / Procedures Referred By Iris carson Referred To Contact Diagnoses Reflex sympathetic dystrophy of right leg Dawit Hernandez MD [address] [place] [address] Referral ID Status Reason Start Date Expiration Date Visits Re quested Visits Authorized [id number] Closed 1 1 [facility] for referral (narrative)No reason for referral information availableWUniversity [facility] Work Phone: Reason for visit Narrative* Imaging (Routine) - Pending Review Specialty Diagnoses / Procedures Referred By Iris carson Referred To Contact Radiology Diagnoses Type 2 diabetes mellitus with hyperglycemia (Multi) Procedures CT cardiac scoring wo IV contrast Afsaneh Green, DO [address] [address] Phone: tel: fax: Referral ID Status Reason Start Date Expiration Date Visits Requested Visits Authorized [id number] Pending Review Perform Procedure 07/11/2024 07/11/2025 1 1 [facility] Work Phone: Family History No Family [...] of right leg Estela Day PA-C [address] [place] [address] Referral ID Status Reason Start Date Expiration Date V isits Requested Visits Authorized [id number] Pending Review 1 1 Referral ID Status Reason Start Date Expiration Date V isits Requested Visits Authorized [id number] Pending Review 1 1 Referral ID Status Reason Start Date Expiration Date V isits Requested Visits Authorized [id number] Pending Review 1 1 Referral ID Status Reason Start Date Expiration Date V isits Requested Visits Authorized [id number] Pending Review 1 1 Specialty Diagnoses / Procedures Referred By Iris t Referred To Contact [facility] Diagnoses Complex regional pain syndrome type 1 of right lower extremity Complex regional pain syndrome type 1 of left lower extremity Other secondary osteoarthritis of right knee Procedures CONSULT TO PHYSICAL THERAPY PHYSICAL THERAPY EVALUATION HIGH COMPLEX 45 MINS Estela Day PA-C [address] [place] [address] [facility] [place] [address] [place] [id number] Referral ID Status Reason Start Date Expiration Date Visits Requested Visits Authorized [id number] Pending Review Auto-Generat ed Referral 3 09/19/2024 1 1 Specialty Diagnoses / Procedures Referred By Iris carson Referred To Contact Occupational Therapy Diagnoses Complex regional pain syndrome type 1 of right lower extremity Complex regional pain syndrome type 1 of left lower extremity Other secondary osteoarthritis of right knee Procedures CONSULT TO WALLPAPER HANGER Estela Day PA-C [address] [place] [address] Referral ID Status Reason Start Date Expiration Date Visits Requested Visits Authorized [id number] Ref Not Required PCP Requested Referral 3 [...] CREATED AUTHOR 12/03/2020 [facility] DATE CREATED AUTHOR AUTHOR'S ORGANIZ ATION 05/04/2024 [facility] DATE CREATED AUTHOR AUTHOR'S ORGANIZ ATION 08/22/2024 [facility] DATE CREATED AUTHOR AUTHOR'S ORGANIZ ATION 08/24/2024 [facility] DATE CREATED AUTHOR AUTHOR'S ORGANIZ ATION 05/18/2025 [facility] Source Comments (unrecognize d section and content) In the event this informatio n is protected by the Federal Confidentiality of Alcohol and Drug Abuse Patient Records regulations: The Federal rules restrict any use of the information to criminally investigate or prosecute any alcohol or drug abuse patient.[facility] HospitalIn the event this information is protected by the Federal Confidentiality of Alcohol and Drug Abuse Patient Records regulations: The Federal rules restrict any use of the information to criminally investigate or prosecute any alcohol or drug abuse patient.[facility] HospitalIn the event this information is protected by the Federal Confidentiality of Alcohol and Drug Abuse Patient Records regulations: The Federal rules restrict any use of the information to criminally investigate or prosecute any alcohol or drug abuse patient.[facility] HospitalIn the event this information is protected by the Federal Confidentiality of Alcohol and Drug Abuse Patient Records regulations: The Federal rules restrict any use of the information to criminally investigate or prosecute any alcohol or drug abuse patient.[facility] HospitalIn the event this information is protected by the Federal Confidentiality of Alcohol and Drug Abuse Patient Records regulations: The Federal rules restrict any use of the information to criminally investigate or prosecute any alcohol or drug abuse patient.[facility] HospitalIn the event this information is protected by the Federal Confidentiality of Alcohol and Drug Abuse Patient Records regulations: The Federal rules restrict any use of the information to criminally investigate or prosecute any alcohol or drug abuse patient.[facility] HospitalIn the event this information is protected by the Federal Confidentiality of Alcohol and Drug Abuse Patient Records regulations: The Federal rules restrict any use of the information to criminally investigate or prosecute any alcohol or drug abuse patient.[facility] HospitalIn the event this information is protected by the Federal Confidentiality of Alcohol and Drug Abuse Patient Records regulations: The Federal rules restrict any use of the information to criminally investigate or prosecute any alcohol or drug abuse patient.[facility] HospitalIn the event this information is protected by the Federal Confidentiality of Alcohol and Drug Abuse Patient Records regulations: The Federal rules restrict any use of the information to criminally investigate or prosecute any alcohol or drug abuse patient.[facility] HospitalIn the event this information is protected by the Federal Confidentiality of Alcohol and Drug Abuse Patient Records regulations: The Federal rules restrict any use of the information to criminally investigate or prosecute any alcohol or drug abuse patient.[facility] HospitalIn the event this information is protected by the Federal Confidentiality of Alcohol and Drug Abuse Patient Records regulations: The Federal rules restrict any use of the information to criminally investigate or prosecute any alcohol or drug abuse patient.[facility] HospitalIn the event this information is protected by the Federal Confidentiality of Alcohol and Drug Abuse Patient Records regulations: The Federal rules restrict any use of the information to criminally investigate or prosecute any alcohol or drug abuse patient.[facility] HospitalIn the event this information is protected by the Federal Confidentiality of Alcohol and Drug Abuse Patient Records regulations: The Federal rules restrict any use of the information to criminally investigate or prosecute any alcohol or drug abuse patient.[facility] HospitalIn the event this information is protected by the Federal Confidentiality of Alcohol and Drug Abuse Patient Records regulations: The Federal rules restrict any use of the information to criminally investigate or prosecute any alcohol or drug abuse patient.[facility] HospitalIn the event this information is protected by the Federal Confidentiality of Alcohol and Drug Abuse Patient Records regulations: The Federal rules restrict any use of the information to criminally investigate or prosecute any alcohol or drug abuse patient.[facility] HospitalIn the event this information is protected by the Federal Confidentiality of Alcohol and Drug Abuse Patient Records regulations: The Federal rules restrict any use of the information to criminally investigate or prosecute any alcohol or drug abuse patient.[facility] HospitalIn the event this information is protected by the Federal Confidentiality of Alcohol and Drug Abuse Patient Records regulations: The Federal rules restrict any use of the information to criminally investigate or prosecute any alcohol or drug abuse patient.[facility] HospitalIn the event this information is protected by the Federal Confidentiality of Alcohol and Drug Abuse Patient Records regulations: The Federal rules restrict any use of the information to criminally investigate or prosecute any alcohol or drug abuse patient.[facility] HospitalIn the event this information is protected by the Federal Confidentiality of Alcohol and Drug Abuse Patient Records regulations: The Federal rules restrict any use of the information to criminally investigate or prosecute any alcohol or drug abuse patient.[facility] HospitalIn the event this information is protected by the Federal Confidentiality of Alcohol and Drug Abuse Patient Records regulations: The Federal rules restrict any use of the information to criminally investigate or prosecute any alcohol or drug abuse patient.[facility] HospitalIn the event this information is protected by the Federal Confidentiality of Alcohol and Drug Abuse Patient Records regulations: The Federal rules restrict any use of the information to criminally investigate or prosecute any alcohol or drug abuse patient.[facility] HospitalIn the event this information is protected by the Federal Confidentiality of Alcohol and Drug Abuse Patient Records regulations: The Federal rules restrict any use of the information to criminally investigate or prosecute any alcohol or drug abuse patient.[facility] HospitalIn the event this information is protected by the Federal Confidentiality of Alcohol and Drug Abuse Patient Records regulations: The Federal rules restrict any use of the information to criminally investigate or prosecute any alcohol or drug abuse patient.[facility] HospitalIn the event this information is protected by the Federal Confidentiality of Alcohol and Drug Abuse Patient Records regulations: The Federal rules restrict any use of the information to criminally investigate or prosecute any alcohol or drug abuse patient.[facility] HospitalIn the event this information is protected by the Federal Confidentiality of Alcohol and Drug Abuse Patient Records regulations: The Federal rules restrict any use of the information to criminally investigate or prosecute any alcohol or drug abuse patient.[facility] HospitalIn the event this information is protected by the Federal Confidentiality of Alcohol and Drug Abuse Patient Records regulations: The Federal rules restrict any use of the information to criminally investigate or prosecute any alcohol or drug abuse patient.[facility] HospitalIn the event this information is protected by the Federal Confidentiality of Alcohol and Drug Abuse Patient Records regulations: The Federal rules restrict any use of the information to criminally investigate or prosecute any alcohol or drug abuse patient.[facility] HospitalIn the event this information is protected by the Federal Confidentiality of Alcohol and Drug Abuse Patient Records regulations: The Federal rules restrict any use of the information to criminally investigate or prosecute any alcohol or drug abuse patient.[facility] HospitalIn the event this information is protected by the Federal Confidentiality of Alcohol and Drug Abuse Patient Records regulations: The Federal rules restrict any use of the information to criminally investigate or prosecute any alcohol or drug abuse patient.[facility] HospitalIn the event this information is protected by the Federal Confidentiality of Alcohol and Drug Abuse Patient Records regulations: The Federal rules restrict any use of the information to criminally investigate or prosecute any alcohol or drug abuse patient.[facility] HospitalIn the event this information is protected by the Federal Confidentiality of Alcohol and Drug Abuse Patient Records regulations: The Federal rules restrict any use of the information to criminally investigate or prosecute any alcohol or drug abuse patient.[facility] HospitalIn the event this information is protected by the Federal Confidentiality of Alcohol and Drug Abuse Patient Records regulations: The Federal rules restrict any use of the information to criminally investigate or prosecute any alcohol or drug abuse patient.[facility] HospitalIn the event this information is protected by the Federal Confidentiality of Alcohol and Drug Abuse Patient Records regulations: The Federal rules restrict any use of the information to criminally investigate or prosecute any alcohol or drug abuse patient.[facility] HospitalIn the event this information is protected by the Federal Confidentiality of Alcohol and Drug Abuse Patient Records regulations: The Federal rules restrict any use of the information to criminally investigate or prosecute any alcohol or drug abuse patient.[facility] HospitalIn the event this information is protected by the Federal Confidentiality of Alcohol and Drug Abuse Patient Records regulations: The Federal rules restrict any use of the information to criminally investigate or prosecute any alcohol or drug abuse patient.[facility] HospitalIn the event this information is protected by the Federal Confidentiality of Alcohol and Drug Abuse Patient Records regulations: The Federal rules restrict any use of the information to criminally investigate or prosecute any alcohol or drug abuse patient.[facility] HospitalIn the event this information is protected by the Federal Confidentiality of Alcohol and Drug Abuse Patient Records regulations: The Federal rules restrict any use of the information to criminally investigate or prosecute any alcohol or drug abuse patient.[facility] HospitalIn the event this information is protected by the Federal Confidentiality of Alcohol and Drug Abuse Patient Records regulations: The Federal rules restrict any use of the information to criminally investigate or prosecute any alcohol or drug abuse patient.[facility] HospitalIn the event this information is protected by the Federal Confidentiality of Alcohol and Drug Abuse Patient Records regulations: The Federal rules restrict any use of the information to criminally investigate or prosecute any alcohol or drug abuse patient.[facility] HospitalIn the event this information is protected by the Federal Confidentiality of Alcohol and Drug Abuse Patient Records regulations: The Federal rules restrict any use of the information to criminally investigate or prosecute any alcohol or drug abuse patient.[facility] HospitalIn the event this information is protected by the Federal Confidentiality of Alcohol and Drug Abuse Patient Records regulations: The Federal rules restrict any use of the information to criminally investigate or prosecute any alcohol or drug abuse patient.[facility] HospitalIn the event this information is protected by the Federal Confidentiality of Alcohol and Drug Abuse Patient Records regulations: The Federal rules restrict any use of the information to criminally investigate or prosecute any alcohol or drug abuse patient.[facility] HospitalIn the event this information is protected by the Federal Confidentiality of Alcohol and Drug Abuse Patient Records regulations: The Federal rules restrict any use of the information to criminally investigate or prosecute any alcohol or drug abuse patient.[facility] HospitalIn the event this information is protected by the Federal Confidentiality of Alcohol and Drug Abuse Patient Records regulations: The Federal rules restrict any use of the information to criminally investigate or prosecute any alcohol or drug abuse patient.[facility] HospitalIn the event this information is protected by the Federal Confidentiality of Alcohol and Drug Abuse Patient Records regulations: The Federal rules restrict any use of the information to criminally investigate or prosecute any alcohol or drug abuse patient.[facility] HospitalIn the event this information is protected by the Federal Confidentiality of Alcohol and Drug Abuse Patient Records regulations: The Federal rules restrict any use of the information to criminally investigate or prosecute any alcohol or drug abuse patient.[facility] HospitalIn the event this information is protected by the Federal Confidentiality of Alcohol and Drug Abuse Patient Records regulations: The Federal rules restrict any use of the information to criminally investigate or prosecute any alcohol or drug abuse patient.[facility] HospitalIn the event this information is protected by the Federal Confidentiality of Alcohol and Drug Abuse Patient Records regulations: The Federal rules restrict any use of the information to criminally investigate or prosecute any alcohol or drug abuse patient.[facility] HospitalIn the event this information is protected by the Federal Confidentiality of Alcohol and Drug Abuse Patient Records regulations: The Federal rules restrict any use of the information to criminally investigate or prosecute any alcohol or drug abuse patient.[facility] HospitalIn the event this information is protected by the Federal Confidentiality of Alcohol and Drug Abuse Patient Records regulations: The Federal rules restrict any use of the information to criminally investigate or prosecute any alcohol or drug abuse patient.[facility] HospitalIn the event this information is protected by the Federal Confidentiality of Alcohol and Drug Abuse Patient Records regulations: The Federal rules restrict any use of the information to criminally investigate or prosecute any alcohol or drug abuse patient.[facility] HospitalIn the event this information is protected by the Federal Confidentiality of Alcohol and Drug Abuse Patient Records regulations: The Federal rules restrict any use of the information to criminally investigate or prosecute any alcohol or drug abuse patient.[facility] HospitalIn the event this information is protected by the Federal Confidentiality of Alcohol and Drug Abuse Patient Records regulations: The Federal rules restrict any use of the information to criminally investigate or prosecute any alcohol or drug abuse patient.[facility] HospitalIn the event this information is protected by the Federal Confidentiality of Alcohol and Drug Abuse Patient Records regulations: The Federal rules restrict any use of the information to criminally investigate or prosecute any alcohol or drug abuse patient.[facility] HospitalIn the event this information is protected by the Federal Confidentiality of Alcohol and Drug Abuse Patient Records regulations: The Federal rules restrict any use of the information to criminally investigate or prosecute any alcohol or drug abuse patient.[facility] HospitalIn the event this information is protected by the Federal Confidentiality of Alcohol and Drug Abuse Patient Records regulations: The Federal rules restrict any use of the information to criminally investigate or prosecute any alcohol or drug abuse patient.[facility] HospitalIn the event this information is protected by the Federal Confidentiality of Alcohol and Drug Abuse Patient Records regulations: The Federal rules restrict any use of the information to criminally investigate or prosecute any alcohol or drug abuse patient.[facility] HospitalIn the event this information is protected by the Federal Confidentiality of Alcohol and Drug Abuse Patient Records regulations: The Federal rules restrict any use of the information to criminally investigate or prosecute any alcohol or drug abuse patient.[facility] HospitalIn the event this information is protected by the Federal Confidentiality of Alcohol and Drug Abuse Patient Records regulations: The Federal rules restrict any use of the information to criminally investigate or prosecute any alcohol or drug abuse patient.[facility] Care Teams (unrecognized sec tion and content) Stripper Machine Operator Relationship Specialty Start Date End Date Danna Barrera [facility] [address] [place] [address] [address] [place], [place] [id number] PCP - General Optometry 03/29/22 Stripper Machine Operator Relationship Specialty Start Date End Date Danna Barrera [facility] [address] [place] [address] [address] [place], [place] [id number] PCP - General Optometry 03/29/22 Stripper Machine Operator Relationship Specialty Start Date End Date Danna Barrera [facility] [facility] [address] [place], [place] [id number] PCP - General Optometry 03/29/22 Stripper Machine Operator Relationship Specialty Start Date End Date Danna Barrera [facility] [facility] [place] [address] PCP - General Optometry 03/29/22 Stripper Machine Operator Relationship Specialty Start Date End Date Danna Barrera [facility] [facility] [place] [address] PCP - General Optometry 03/29/22 Stripper Machine Operator Relationship Specialty Start Date End Date Danna Barrera [facility] [facility] [place] [address] PCP - General Optometry 03/29/22 Stripper Machine Operator Relationship Specialty Start Date End Date Danna Barrera [facility] [facility] [place] [address] PCP - General Optometry 03/29/22 Stripper Machine Operator Relationship Specialty Start Date End Date Danan Barrera [facility] [facility] [place] [address] PCP - General Optometry 03/29/22 Stripper Machine Operator Relationship Specialty Start Date End Date Danna Barrera [facility] [facility] [place] [address] PCP - General Optometry 03/29/22 Stripper Machine Operator Relationship Specialty Start Date End Date Danna Barrera [facility] [facility] [place] [address] PCP - General Optometry 03/29/22 Stripper Machine Operator Relationship Specialty Start Date End Date Danna Barrera [facility] [facility] [place] [address] PCP - General Optometry 03/29/22 Stripper Machine Operator Relationship Specialty Start Date End Date Danna Barrera [facility] [address] [place] [address] [place] [address] PCP - General Optometry 03/29/22 Stripper Machine Operator Relationship Specialty Start Date End Date Danna Barrera [facility] [address] [place] [address] [place] [address] PCP - General Optometry 03/29/22 Stripper Machine Operator Relationship Specialty Start Date End Date Danna Barrera [facility] [address] [place] [address] [place] [address] PCP - General Optometry 03/29/22 Stripper Machine Operator Relationship Specialty Start Date End Date Danna Barrera NPI: [facility] [address] [place] [address] [place] [address] PCP - General Optometry 03/29/22 Stripper Machine Operator Relationship Specialty Start Date End Date Danna Barrera NPI: [facility] [address] [place] [address] [place] [address] PCP - General Optometry 03/29/22 Stripper Machine Operator Relationship Specialty Start Date End Date Danna Barrera NPI: [facility] [address] [place] [address] [place] [address] PCP - General Optometry 03/29/22 Stripper Machine Operator Relationship Specialty Start Date End Date Danna Barrera NPI: [facility] [address] [place] [address] [place] [address] PCP - General Optometry 03/29/22 Stripper Machine Operator Relationship Specialty Start Date End Date Danna Barrera NPI: [facility] [address] [place] [address] [place] [address] PCP - General Optometry 03/29/22 Stripper Machine Operator Relationship Specialty Start Date End Date Danna Barrera NPI: [facility] [facility] [place] [address] PCP - General Optometry 03/29/22 Stripper Machine Operator Relationship Specialty Start Date End Date Danna Barrera NPI: [facility] [facility] [place] [address] PCP - General Optometry 03/29/22 Stripper Machine Operator Relationship Specialty Start Date End Date Danna Barrera NPI: [facility] [facility] [place] [address] PCP - General Optometry 03/29/22 Stripper Machine Operator Relationship Specialty Start Date End Date Danna Barrera NPI: [facility] [facility] [place] [address] PCP - General Optometry 03/29/22 Stripper Machine Operator Relationship Specialty Start Date End Date Danna Barrera NPI: [facility] [facility] [place] [address] PCP - General Optometry 03/29/22 Stripper Machine Operator Relationship Specialty Start Date End Date Danna Barrera NPI: [facility] [facility] [place] [address] PCP - General Optometry 03/29/22 Stripper Machine Operator Relationship Specialty Start Date End Date Danna Barrera NPI: [facility] [facility] [place] [address] PCP - General Optometry 03/29/22 Stripper Machine Operator Relationship Specialty Start Date End Date Danna Barrera NPI: [facility] [facility] [place] [address] PCP - General Optometry 03/29/22 Stripper Machine Operator Relationship Specialty Start Date End Date Afsaneh Green DO [address] [address] PCP - General Internal Medicine 08/15/24 Team [...] pain Specialty Diagnoses / Procedures Referred By Iris carson Referred To Contact PAIN MANAGEMENT Diagnoses S82.52XA, S82.852A, S93.05XA, F45.42, F43.23,G90.522, L03.116, T81.31XA, L97.929, T70.0XXA, T81.89XA, A49.01, A49.02, M86.8X7, H90.3, M86.8X6, S88.112A, S83.241A, L90.5, M17.11, G90.521, M23.41, M23.91 Procedures REFERRAL TO [facility] Estela Day PA-C [address] [place] [address] [facility] [address] [place] [address] Referral ID Status Reason Start Date Expiration Date Visits Re quested Visits Authorized [id number] Closed 12/27/2023 12/27/2023 1 1 Reason Comments Leg Pain Left-[facility] Specialty Diagnoses / Procedures Referred By Contac t Referred To Contact Pain Management / PAIN MANAGEMENT Diagnoses FOLLOW UP [facility] Procedures REFERRAL TO [facility]SEL[facility] EST PATIENT Danna Barrera [facility] [address] [place] [address] [place] [address] Estela Day PA-C [address] [place] [address] Referral ID Status Reason Start Date Expiration Date Visits Re quested Visits Authorized [id number] Closed 06/01/2023 06/01/2023 1 1 Specialty Diagnoses / Procedures Referred By Contact Referred To Contact Anesthesiology / PAIN MANAGEMENT Diagnoses FOLLOW UP Procedures EST PATIENT Dawit Hernandez MD [address] [place] [address] Dawit Hernandez MD [address] [place] [address] Referral ID Status Reason Start Date Expiration Date V isits Requested Visits Authorized [id number] Closed Patient Cleared - Admin/Chairm an/Director advise to proceed 01/26/2023 01/26/2023 1 1 Reason Onset Date Comments Refill Request 04/20/2022 Reason Comments Pain Specialty Diagnoses / Procedures Referred By Contac t Referred To Contact Pain Management / PAIN MANAGEMENT Diagnoses follow up Procedures FOLLOW-UP/REASSESSMENT EST PATIENT Danna Barrera [facility] [address] [place] [address] [place] [address] Estela Day, PAAziza [address] [place] [address] Referral ID Status Reason Start Date Expiration Date Visits Requested Visits Authorized [id number] Pending Review OON/Self Pay Override Patient Cleared - Admin/Chair man/Directo r advise to proceed 05/17/2022 08/15/2022 1 1 Reason Comments Orders Reason Onset Date Comments Refill Request 06/22/2022 Referral ID Status Reason Start Date Expiration Date Visits Re quested Visits Authorized [id number] Closed 06/28/2022 08/27/2022 1 1 Reason Onset [...] Management / PAIN MANAGEMENT Diagnoses FOLLOW UP [facility] Procedures EST PATIENT Dawit Hernandez MD [address] [place] [address] Estela Day PA-C [address] [place] [address] Referral ID Status Reason Start Date Expiration Date Visits Re quested Visits Authorized [id number] Closed 11/02/2022 11/02/2022 1 1 Reason Comments Pain Left leg [facility] Specialty Diagnoses / Procedures Referred By Contac t Referred To Contact Pain Management / PAIN MANAGEMENT Diagnoses FOLLOW UP Procedures EST PATIENT Estela Day PA-C [address] [place] [address] Estela Day PA-C [address] [place] [address] Referral ID Status Reason Start Date Expiration Date Visits Requested Visits Authorized [id number] Pending Review Patient Cleared - Admin/Chair man/Directo r advise to proceed 12/14/2022 03/14/2023 1 1 Reason Onset Date Comments Refill Request 12/21/2022 Reason Onset Date Comments Refill Request 01/12/2023 Reason Onset Date Comments Refill Request 02/21/2023 Referral ID Status Reason Start Date Expiration Date Visits Requested Visits Authorized [id number] Pending Review Patient Cleared - Admin/Chair man/Directo r advise to proceed 01/26/2023 04/26/2023 1 1 Reason Onset Date Comments Refill Request 03/10/2023 Reason Onset Date Comments Refill Request 04/15/2023 Reason Comments Nucynta denied - [facility] Referral ID Status Reason Start Date Expiration Date V isits Requested Visits Authorized [id number] Closed Patient Cleared - Admin/Chairm an/Director advise [...] Management / PAIN MANAGEMENT Diagnoses FOLLOW UP [facility] Procedures EST PATIENT Estela Day PA-C [address] [place] [address] Estela Day PA-C [address] [place] [address] Referral ID Status Reason Start Date Expiration Date V isits Requested Visits Authorized [id number] Closed Patient Cleared - Admin/Chairm an/Director advise to proceed or did not respond 07/13/2023 10/11/2023 1 1 Reason Onset Date Comments Refill Request 07/19/2023 Reason Comments Request for OT Eval Reason Onset Date Comments Refill Request 09/26/2023 Specialty Diagnoses / Procedures Referred By Contac t Referred To Contact PAIN MANAGEMENT Diagnoses Follow-up exam Procedures FOLLOW-UP/REASSESSMENT Estela Day PA-C [address] [place] [address] [address] [facility] [address] [place] [address] Referral ID Status Reason Start Date Expiration Date Visits Re quested Visits Authorized [id number] Closed 10/05/2023 10/05/2023 1 1 Reason Onset [...] TO [facility] Estela Day PA-C [address] [place] [address] [address] Referral ID Status Reason Start Date Expiration Date Visits Re quested Visits Authorized [id number] Closed 04/04/2024 04/04/2024 1 1 Reason Comments Results Reason Comments Cough Runny nose x1 mth Reason Comments Request for C9 - scooter left & cover Specialty Diagnoses / Procedures Referred By Contac t Referred To Contact PAIN MANAGEMENT Diagnoses G90.522 G90.521 M17.11 F45.42 Procedures REFERRAL TO [facility] Estela Day PA-C [address] [place] [address] [address] Referral ID Status Reason Start Date Expiration Date Visits Re quested Visits Authorized [id number] Closed 05/25/2024 05/25/2024 1 1 Reason Comments [...] UP Procedures EST PATIENT Estela Day PA-C [address] [place] [address] Estela Day PA-C [address] [place] [address] Referral ID Status Reason Start Date Expiration Date Visits Re quested Visits Authorized [id number] Closed 02/07/2024 02/07/2024 1 1 Goals (unrecognized [...] BE BASED ON THE PRIMARY CLINICAL RECORDS. [facility] [employer] [facility]. provides no warranty or guarantee of the accuracy or completeness of information in this document.
[2025-06-10 07:28] LABS: Mucous, Urine 0 SEEN /hpf (<or=2+); Red Blood Cells-Urine 0 SEEN /hpf (0-5); Squamous Epithelial Cells - UA 0 SEEN /hpf (0-5)
[2025-06-10 08:05] LABS: Color, Urine Yellow (Yellow); Glucose, Dipstick Normal (Normal); Ketone-Dipstick Negative (Negative); Leukocyte Esterase-Dipstick Negative /ul (Negative); Nitrite-Dipstick Negative (Negative); Occult Blood-Urine Negative /ul (Negative); Protein-Dipstick 15 mg/dl (Negative); Specific Gravity, Urine 1.015 (1.002-1.030); Urine Bilirubin Dipstick Negative (Negative)
[2025-06-10 08:14] LABS: Hematocrit 38.1 % (40-54); Hemoglobin 12.6 g/dL (13.0-16.5); Immature Granulocytes Count 0.050 X10^3/uL (0.0-0.0); Mean Corp Hgb Conc 33.1 g/dL (32-36); Mean Corpuscular Volume 90.9 fL (80-94); Mean Platelet Vol. 9.8 fl (6.2-12.0); NRBC Flagged by Analyzer 0 % (0-5); Platelet Count 357 K/mm3 (150-450); RBC Distribution Width CV 13.1 % (11.6-14.6); RBC Distribution Width SD 43.6 fl (35.1-43.9); Red Blood Count 4.19 M/mm3 (4.6-6.2); White Blood Count 11.4 K/mm3 (4.4-11.0)
[2025-06-10 08:24] LABS: Creatinine, Urine (random) 152.00 mg/dL (39.00-259.00); Microalbumin,Random Urine 32.4 mg/L (<20 mg/L)
[2025-06-10 09:04] LABS: AST(SGOT) 22 U/L (<=37); Alanine Aminotransfer ALT/SGPT 26 U/L (<=46); Albumin, Serum 4.1 g/dL (3.5-5.0); Alkaline Phosphatase 71 U/L (40-129); Anion Gap 12 (5-15); BUN 21 mg/dL (4-19); BUN/Creat Ratio 24.7 RATIO (10-20); Calcium,Total 9.5 mg/dL (7.6-11.0); Carbon Dioxide 26.1 mmol/L (21.0-32.0); Chloride 101 mmol/L (98-108); Globulin 2.9 g/dL (2.2-4.2); Glucose 100 mg/dL (70-99); Potassium 4.3 mmol/L (3.3-5.1)
[2025-06-10 09:19] LABS: Vitamin B12 726 pg/mL (180-914); Vitamin D,25 Hydroxy 68.8 ng/mL (30-100)
== END | disposition home or self-care (01) ==
LOC: LAB 07:19
PROVIDERS: PCP Internal Medicine; Referring Provider Internal Medicine; Visit Provider Internal Medicine
DX: R20.2 Paresthesia of skin (principal); E11.65 Type 2 diabetes mellitus with hyperglycemia; E55.9 Vitamin D deficiency, unspecified
CPT/HCPCS: 36415; 80053; 81001; 82043; 82306; 82570; 82607; 84443; 85025; 85652

== ENCOUNTER 2025-08-23 07:20 | Day surgery (SDC) | payer OTHER, SELFPAY ==
--- NOTE | 2025-08-06 16:18 | PAT.ANE_ITS ---
Pre-Assessment Diagnosis/Proposed Procedure Planned Operative Procedure(s): Colonoscopy - Open Access Anesthesia History Anesthesia History - frozen yogurt maker: Anesthesia History - frozen yogurt maker Hx Hospitalization No 08/06/25 16:01 Any Problems With Anesthesia No 08/06/25 16:01 Cholinesterase deficiency No 08/06/25 16:01 You/Your Family Experience No 08/06/25 16:01 fever (hyperthermia) with Relationship Recent Exposure to Contagious Disease Does patient have nerve Yes 08/06/25 16:01 stimulator Patient instructed to have device shut off --Does patient have Pacemaker or ICD? When Was Last Pacemaker Check QUESTION #4 FULL TEXT: You/Your Family Experience fever (hyperthermia) with Anesthesia Last Oral Intake Last Oral intake: Last Oral Intake NPO since Meds taken in AM with sips of water? Meds patient instructed to take am of surgery PONV PONV - frozen yogurt maker: PONV - frozen yogurt maker Female No 08/06/25 16:01 HX of Motion Sickness No 08/06/25 16:01 HX of N/V After Surgery No 08/06/25 16:01 Non-Smoker Yes 08/06/25 16:01 Duration of Surgery greater No 08/06/25 16:01 than 60 minutes Number of Risk Factors 1 08/06/25 16:01 PONV Score Low Risk 08/06/25 16:01 Height & Weight Height & Weight: Anesthesia: Height & Weight Height 5 ft 7 in 07/29/25 10:15 Respiratory Assessment Respiratory Assessment - frozen yogurt maker: Respiratory Tract Infection Hx - frozen yogurt maker Hx Respiratory Tract Infection No 08/06/25 16:01 STOP Sleep Apnea STOP Sleep Apnea - frozen yogurt maker: STOP Sleep Apnea - frozen yogurt maker Hx Hypertension No 08/06/25 16:01 Hx Sleep Apnea No 08/06/25 16:01 CPAP BIPAP Do you snore loudly (louder No 08/06/25 16:01 than talking or can be heard Do you often feel tired/ No 08/06/25 16:01 fatigued/ sleepy during daytime? Has anyone observed you stop No 08/06/25 16:01 breathing during sleep? STOP Results Negative 08/06/25 16:01 QUESTION #5 FULL TEXT : Do you snore loudly (louder than talking or can be heard through closed doors)? Tobacco Use History Tobacco Use History - frozen yogurt maker: Tobacco Use History - frozen yogurt maker Tobacco Use Smoking Status Never smoker 08/06/25 16:01 Hx Tobacco Use No 08/06/25 16:01 Years Smoking Packs Smoked per Day Smoking Cessation Date was within the last 15 years Hx Smoking Cessation Date Hx Smoking Cessation Counseling Hematologic Medial History Hematologic Hx - frozen yogurt maker: Hematologic Medical Hx - wrapper opener Hx of Blood Transfusion No 08/06/25 16:01 Hx of Transfusion in last 3 No 08/06/25 16:01 Months Date of Last Transfusion (if within last 3 months) Ever experience any problems No 08/06/25 16:01 with transfusion(s)? Specify any problems Hx of Preganancy in last 3 N/A 08/06/25 16:01 Months Nurse Filling Out Transfusion JZOLLINGE 08/06/25 16:01 & Questions: Date: 08/06/25 08/06/25 16:01 Time: 16:02 08/06/25 16:01 Patient unable to answer at this time (ie. confused, unrespo /Reproduction History /Reproductive History - frozen yogurt maker: /Reproductive Hx- frozen yogurt maker Hx Now No 08/06/25 16:01 Gestational Age (in weeks): EDC: Hx Hx Para Hx Section SAB No 08/06/25 16:01 [facility] Medical History (Updated 08/06/25 @ 16:01 by Nora Crocker) Wears hearing aid Wears glasses Wears dentures Wears partial dentures Arthritis Dietary restriction Non-smoker MGUS (monoclonal gammopathy of unknown significance) Hearing loss, bilateral Traumatic injury of lower leg GERD (gastroesophageal reflux disease) Anemia Vitamin D deficiency, unspecified Hypercalcemia Hyperkalemia Insomnia, unspecified Complex regional pain syndrome I, unspecified Sensorineural hearing loss, bilateral Diabetes Abnormal blood cell count Home Medications Medication Instructions Recorded Last Taken Type ascorbic acid (vitamin C) 1,000 mg 1,000 mg PO DAILY 0 01/28/18 Unknown History tablet (Vitamin C) duloxetine 60 mg capsule,delayed 60 mg PO BID 01/28/18 Unknown History release multivitamin (Daily Multiple 1 ea PO DAILY 01/28/18 Un known History tablet) naloxegol 25 mg tablet (Movantik) 25 mg PO DAILY Const ipation 01/28/18 Unknown History omeprazole 40 mg capsule,delayed 40 mg PO BID 03/31/18 Unknown History release mecobalamin (vitamin B12) 1,000 1,000 mcg PO QDAY 07/02 01/22 Unknown History mcg lozenges metformin 500 mg tablet 500 mg PO BID 07/23/25 Unkno wn History terazosin 1 mg capsule 1 mg PO QDAY 07/23/25 Unknow n History cholecalciferol (vitamin D3) 125 125 mcg PO QDAY 07/29 Unknown History mcg (5,000 unit) capsule tapentadol 100 mg tablet (Nucynta) 100 mg PO BID 07/29 Unknown History Allergy/AdvReac Type Severity Reaction Status Date / Time adhesive tape AdvReac Rash Verified 08/06/25 15:53 Family History Mother Cancer cervical Other Diabetes Heart disease Hypertension Surgical History (Updated 08/06/25 @ 16:01 by Nora Crocker) History of insertion of nerve stimulator Hx of amputation below knee Hx of vasectomy Social History (Updated 07/29/25 @ 10:06 by Ivette Beck) Smoking Status: Never smoker alcohol intake: never substance use type: does not use Audit: Pertinent Findings Pertinent Findings Echo (EF%) pertinent findings: 08/27/2015. EF 65%. Right PA pressure 22. Recommendation Anesthesia Recommendation Anesthesia recommendation: OPTIMIZED for anesthesia
[2025-08-23] VITALS (10 sets, daily range): BP systolic 89–129; BP diastolic 68–90; PULSE 83–109; RESP 14–18; TEMP 26.6–36.3; O2SAT 97–100; BMI 27.3
--- OUTSIDE RECORDS SUMMARY | 2025-08-23 07:40 | XMS RPT_ITS | CCD ---
Author Organization [facility] Care Team Providers Care Supervisor Special Education Name Role Phone Afsaneh Green Unavailable Afsaneh Green Unavailable Patricia Ash Unavailable Unavailable Josette Hoffman Unavailable Unavailable Senior Functional Analyst, System Unavailable Unavailable Unavailable Unavailable Unavailable Primary Care Provider UnavailDanna Basilio Primary Care Provider Danna Barrera Primary Care Provider Danna Barrera Primary Care Provider Danna Barrera Primary Care Provider [phone] Danna Barrera Primary Care Provider ASHUTOSH HENNESSY Referring Unavailable DANNA BARRERA Primary Care Unavailable DANNA BARRERA Primary Care Unavailable Afsaneh Green DO Primary Care Provider [phone] AFSANEH GREEN Referring Unavailable AFSANEH GREEN Primary [...] Provider Bethany ROLLINS, Dr. Valadez Attending Provider Dr. Rory Sims MD Referring Provider Nelida VIVAS, Dr. Shelby Attending Provider Nelida VIVAS, Dr. Shelby Referring Provider Nelida VIVAS, Dr. Shelby Primary Care Physician Bethany ROLLINS, Dr. Valadez Attending Physician Nelida VIVAS, Dr. Shelby Attending Physician Ivette Beck Attending Physician Unavailable Carol ROLLINS, Dr. Mcnamara Attending Physician Nelida, Afsaneh Primary Care Unavailable Nelida, Afsaneh Referring Unavailable Anders Medina Attending Unavailable Nelida, Afsaneh Primary Care Unavailable Nelida, Afsaneh Referring Unavailable Martinez Rodriguez Attending Unavailable Nelida, Afsaneh Primary Care Unavailable PraysRory aponte Referring Unavailable Rory Sims Attending Unavailable Nelida, Afsaneh Primary Care Unavailable Nelida, Afsaneh Referring Unavailable NelidaAfsaneh aponte Attending Unavailable NelidaAfsaneh Referring Unavailable NelidaAfsaneh Attending Unavailable Nelida, Afsaneh Primary Care Unavailable Nelida, Afsaneh Primary Care Unavailable Ivette Beck Attending Unavailable Allergies Allergy Classification Reported Allergen(s) Allergy Type Date of Onset Reaction(s) Facility Adhesive Tape (2 sources) Adhesive Tape Substance Allergy 8 [facility] Work Phone: (2 sources) Adhesive Tape allergy to substance [facility] Work Phone: Comment on above: blisters (20 sources) Adhesive Tape; Translations: [ADHESIVE TAPE (ROSINS)] Propensity to adverse reactions 8 [facility] Work Phone: (1 source) ALLERGIES NOT ON FILE; Translations: [ALLERGIES NOT ON FILE] Propensity to adverse reactions (disorder) [facility] 2 Repository (1 source) Adhesive Tape Drug allergy (disorder) [address] [place] [address] Repository Medications Current Medications Medication Drug Class(es) Dates Sig (Normalized) Sig (Original) ascorbic acid 1000 mg oral tablet (20 sources) Vitamin C Start: 01-28-2018 take 1 tablet by mouth once daily take 1 tablet by mouth once aguilar y Ascorbic Acid 100 mg chew Take 1 tablet by mouth once daily. Active Comment on above: Take 1 tablet by nash once daily. benzonatate 100 mg oral capsule [...] on above: Take 1 capsule by mo meh three times daily as needed. Take 2 capsules by m outh three times daily as needed for Cough. cholecalciferol 0.125 mg oral capsule (1 source) Vitamin D Start: 07-29-20 25 take 1 capsule by mouth once daily citalopram 10 mg oral tablet (12 sources) Serotonin Reuptake Inhibitor Start: 11-17-19 08 End: 06-28-20 22 CITALOPRAM 10 MG TAB Take by mouth. [...] on above: 30mg bid Take by mouth. doxycycline hyclate 100 mg oral tablet (9 sources) Tetracycline-cl ass Drug Start: 05-02-2024 End: 05-09-2024 take 1 tablet by mouth twice daily [...] take 1 capsule by mouth twice daily Comment on above: Take 60 mg by mouth twice daily. Take 1 capsule by mo ut twice daily. Take 1 capsule by mo [facility] two times a day. mecobalamin 1 mg oral lozenge (1 source) Start: 07-23-2025 take 1000 ug by mouth once daily metFORMIN hydrochloride 500 mg oral tablet (1 source) Biguanide Start: 07-23-2025 take 1 tablet by mouth twice daily 24 hr morphine sulfate 60 mg extended release oral capsule (12 sources) Opioid Agonist Start: 09-06-2007 End: 06-28-2022 morphine sulfate(AVINZA 60 MG 24 HR CAP) Take by mouth. 0 11/17/2007 06/28/2022 Discontinued (Other) Comment on above: Take one(1) tablet d aily at bedtime. Take by mouth. Multivitamin (Daily Multiple Vitamin) 1 EACH tablet (4 sources) Start: 01-28-2018 take 1 tablet by mouth once daily Start: 01-28-2018 take 1 tablet by nash [...] oral tablet (20 sources) Opioid Antagonist Start: 6 End: 4 take 1 tablet by mouth once daily as needed for constipation Comment on above: Take 25 mg by mouth once daily as needed. Take 1 tablet by nash once daily as needed. naloxone 4 mg/actuation nasal spray (NARCAN) (13 sources) Start: 3 naloxone 4 mg/actuation nasal spray (NARCAN) Use [...] take 1 capsule by mouth twice daily Comment on above: Take 40 mg by mouth twice daily. Take 1 capsule by [facility] twice daily. Take 1 capsule by [facility] two times a day. oxyCODONE hydrochloride 5 [...] 1-2 every 8 hours Take by mouth. pregabalin 100 mg oral capsule (12 sources) Start: 11-17-2007 End: 06-28-2022 pregabalin(LYRICA 100 MG CAP) Take by mouth. [...] 5 Inhibitor Start: 10-05-20 23 End: 02-02-20 sildenafil (VIAGRA) 50 mg tablet Take 1 tablet by mouth as needed (30-60 minutes before sexual intercourse). TAKE 30-60 MINUTES BEFORE SEXUAL INTERCOURSE NEEDED. 10 tablet 3 10/05/2023 02/02/2024 Active Comment on above: Take 1 tablet by nash th as needed (30-60 minutes before sexual intercourse). TAKE 30-60 MINUTES BEFORE SEXUAL INTERCOURSE NEEDED. tadalafil 10 mg oral tablet (20 sources) Phosphodiesterase 5 Inhibitor Start: 11-15-19 End: 03-14-20 24 take 1 tablet by mouth once [...] oral tablet (20 sources) Opioid Agonist Start: 07-29-20 take 1 tablet by mouth twice daily Start: 03-24-2024 End: 07-29-2025 take 1 tablet by mouth four times daily Tapentadol (Nucynta) 100 mg tablet Discontinued 100 mg PO 4 TIMES DAILY 0 March 24, 2024 12:00am July 29, 2025 10:05am Start: 11-15-2023 End: 06-24-2024 take 1 tablet [...] as needed. Take 1 tablet by nash every 6 hours as needed for up to 30 days. Take 1 tablet by nash twice daily for 30 days. Do not start before March 23, 2023. Take 1 tablet by nash th twice daily for 30 days. Take 1 tablet by nash th every 6 hours as needed for up to 30 days. Do not start before June 29, 2023. terazosin 1 mg oral capsule (20 sources) alpha-Adrenergic [place] Start: 07-23-2025 take 1 capsule by mouth once daily Start: 11-03-2016 End: 07-18-2024 take 1 capsule [...] Take by mouth. Take 1 capsule by [facility] once daily. traZODone (20 sources) Serotonin Reuptake [...] Sig (Original) ALPRAZolam 0.5 mg oral tablet (16 sources) Benzodiazepine Start: 10-11-2016 End: 07-23-2025 take 1 tablet by mouth once daily Alprazolam 0.5 MG tablet Discontinued 0.5 mg PO DAILY January 28, 2018 12:00am July 23, 2025 4:52pm Comment on above: Take 0.5 mg by mouth once daily as needed. amoxicillin 875 mg / clavulanate 125 mg oral tablet (5 sources) Penicillin-class Antibacterial Start: 03-24-2024 End: 03-29-2024 Amoxicillin-Pot Clavulanate 875-125 mg tablet Discontinued 1 {tbl} PO TWICE A DAY 10 5 0 March 24, 2024 12:00am March 28, 2024 [...] Antibacterial Clindamycin HCl 1 qi d Active cyclobenzaprine hydrochloride 10 mg oral tablet (4 sources) Muscle Relaxant Start: End: take 1 tablet by mouth three times daily as needed for muscle spasms Cyclobenzaprine 10 MG tablet Discontinued 10 mg PO THREE TIMES A DAY as needed for Muscle Spasm 0 January 28, 2018 12:00am July 23, 2025 4:52pm eszopiclone 3 mg oral tablet (20 sources) Start: 017 End: 025 take 1 tablet by mouth at bedtime Eszopiclone 3 MG tablet Discontinued 3 mg PO AT BEDTIME January 28, 2018 12:00am July 23, 2025 4:52pm Comment on above: Take 3 mg by mouth a t bedtime as needed. ferrous sulfate 325 mg oral tablet (2 sources) Start: 011 End: 011 take 1 tablet by mouth once daily IRON, 325 (65 Fe)MG (Oral Tablet) 1 Tablet qd for 30 days Quantity: 30 {Tablet} Refills: 0 Ordered: 10-Mar-2011 Patricia Ash RN Start : 10-Mar-2011 End : 09-Apr-2011 Inactive gabapentin 800 mg oral tablet (2 sources) Anti-epileptic Agent End: 007 take 1 tablet by mouth every eight hours NEURONTIN, 800MG (Oral Tablet) 1 q8hr for 0 days Refills: 0 Ordered: 15-Sep-2007 Danna Miller End : 19-Apr-2007 Inactive HYDROmorphone hydrochloride 4 mg oral tablet (20 sources) Opioid Agonist Start: 018 End: 024 take 2 mg by mouth every eight [...] 0 days Refills: 0 Ordered: 10-Mar-2011 Patricia sAh RN End : 10-Mar-2011 Inactive methadone hydrochloride [...] days Refills: 0 Ordered: 30-Jul-2009 Patricia Ash [employer] Active naloxone hydrochloride 40 mg/ml nasal spray [...] 0 Ordered: 30-Jul-2009 Patricia Ash RN Active 12 hr oxyMORphone hydrochloride 40 mg extended release oral tablet (20 sources) Opioid Agonist Start: 11-03-2016 End: 07-23-2025 take 1 tablet by mouth every twelve hours Oxymorphone 40 MG tablet extended release 12 hr Discontinued 40 mg PO Q12H January 28, 2018 12:00am July 23, 2025 4:52pm promethazine hydrochloride 25 mg oral tablet (2 [...] days Refills: 0 Ordered: 05-Sep-2007 Patricia Ash [employer] Start : 05-Sep-2007 End : 25-Sep-2007 Inactive Comments: 1g mixed and given through pic line by Chavez Sultana. Lot [id number] DDdd exp04-10-09 Comment on above: 1g mixed and given t hrough pic line by [employer] Sultana. Lot [id number] DDdd exp04-10-09 vancomycin 1000 mg injection (2 sources) Glycopeptide Antibacterial Start: 03-13-2011 End: 03-14-2011 VANCOMYCIN HCL, 1000MG (Intravenous Solution Reconstituted) 1g For Solution qd for 1 days Quantity: 1 {For_Solution} Refills: 0 Ordered: 13-Mar-2011 Afsaneh Green DO, DO, Kathleen Start : 13-Mar-2011 End : 14-Mar-2011 Inactive Comments: eileen [id number] 05/11 Start: 09-05-2007 End: 09-25-2007 VANCOCIN HCL, 1GM/200ML (Int ravenous Solution) Solution for 0 days Refills: 0 Ordered: 05-Sep-2007 Patricia Ash RN Start : 05-Sep-2007 End : 25-Sep-2007 Inactive Comments: 1g mixed and given through pic line by Chavez Sultana. Lot [id number] DDdd exp04-10-09 Comment on above: 1g mixed and given t hrough pic line by Chavez Sultana. Lot [id number] DDdd 04-10-09 lot [id number] 05/11 VANCOMYCIN HCL, 1000MG (Intravenous Solution Reconstituted) (1 source) Start: 03-13-2011 End: 03-14-2011 VANCOMYCIN HCL, 1000MG (Intravenous Solution Reconstituted) 1g For Solution qd for 1 days Quantity: 1 {For_Solution} Refills: 0 Ordered: 13-Mar-2011 Afsaneh Green DO, DO, Kathleen Start : 13-Mar-2011 End : 14-Mar-2011 Inactive Comments: lot [id number] 05/11 Comment on above: lot [id number] 05/11 VITAMIN C CR, 1000-100MG (Oral Tablet [...] disease and bronchiectasis Diabetes mellitus with complications (5 sources) Hyperglycemia due to type 2 diabetes mellitus; Translations: [Type 2 diabetes mellitus with hyperglycemia] Onset: 08-15-2024 08-15-2024 Chronic Esophageal disorders (1 source) Erosive [...] [Nausea & vomiting] Resolved: 03-27-2009 10-02-2015 Episodic Neoplasms of unspecified nature or uncertain behavior (2 sources) Monoclonal gammopathy of uncertain significance; Translations: [Monoclonal gammopathy] 07-29-2025 Chronic Open wounds of extremities (2 sources) Traumatic amputation of leg(s) (complete) (partial), unilateral, below knee, without mention of complication; Translations: [AMPUT TRAUM LEG BELOW KNEE UNILT W/O COMPL] 07-19-2011 Chronic Osteoarthritis (20 sources) Osteoarthritis of right knee joint; Translations: [Unilateral primary osteoarthritis, right knee] Onset: 05-15-2022 Chronic Other aftercare (1 source) Patient encounter status; Translations: [Other long-term (current) drug therapy] Episodic Other ear and [...] right lower extremity] Onset: 04-04-2024 Chronic Other nervous system disorders (1 source) Paresthesia of skin; Translations: [Paresthesia of skin] Onset: 07-11-2025 Episodic Other upper respiratory infections (3 sources) Sinusitis; Translations: [Chronic sinusitis, unspecified] 03-24-2024 Chronic [...] related to RSD R Sprains and strains (4 sources) Injury of abdominal wall; Translations: [Strain [...] current use of drug therapy; Translations: [Other meterman (current) drug therapy] Onset: 07-31-2020 03-29-2022 Episodic [...] Test Name Value Interpretation Reference Range Facility MR/PATAleks 08-06-2025 MR/PAT.BHARATH [facility] Medical Records Department [address] [place] [address] PAT - Anesthesia 08/06/25 1618 MR#: [id number] Acct: [id number] Name: CONG HARRISON Rep #: [id number] : 1965 60 From: Ori Morgan MD PCP: Dr. Afsaneh Green, DO Status:PRE ALC Y Race: C Location: [facility] Pre-Assessment Diagnosis/Proposed Procedure Planned Operative Procedure(s): Colonoscopy - Open Access Anesthesia History Anesthesia History - pt sitter: Anesthesia History - pt sitter Hx Hospitalization No 08/06/25 16:01 Any Problems With Anesthesia No 08/06/25 16:01 Cholinesterase deficiency No 08/06/25 16:01 You/Your Family Experience No 08/06/25 16:01 fever (hyperthermia) with Relationship Recent Exposure to Contagious Disease Does patient have nerve Yes 08/06/25 16:01 stimulator Patient instructed to have device shut off --Does patient have Pacemaker or ICD? When Was Last Pacemaker Check QUESTION #4 FULL TEXT: You/Your Family Experience fever (hyperthermia) with Anesthesia Last Oral Intake Last Oral intake: Last Oral Intake NPO since Meds taken in AM with sips of water? Meds patient instructed to take am of surgery PONV PONV - pt sitter: PONV - pt sitter Female No 08/06/25 16:01 HX of Motion Sickness No 08/06/25 16:01 HX of N/V After Surgery No 08/06/25 16:01 Non-Smoker Yes 08/06/25 16:01 Duration of Surgery greater No 08/06/25 16:01 than 60 minutes Number of Risk Factors 1 08/06/25 16:01 PONV Score Low Risk 08/06/25 16:01 Height Weight Height Weight: Anesthesia: Height Weight Height 5 ft 7 in 07/29/25 10:15 Respiratory Assessment Respiratory Assessment - pt sitter: Respiratory Tract Infection Hx - pt sitter Hx Respiratory Tract Infection No 08/06/25 16:01 STOP Sleep Apnea STOP Sleep Apnea - pt sitter: STOP Sleep Apnea - pt sitter Hx Hypertension No 08/06/25 16:01 Hx Sleep Apnea No 08/06/25 16:01 CPAP BIPAP Do you snore loudly (louder No 08/06/25 16:01 than talking or can be heard Do you often feel tired/ No 08/06/25 16:01 fatigued/ sleepy during daytime? Has anyone observed you stop No 08/06/25 16:01 breathing during sleep? STOP Results Negative 08/06/25 16:01 QUESTION #5 FULL TEXT : Do you snore loudly (louder than talking or can be heard through closed doors)? Tobacco Use History Tobacco Use History - pt sitter: Tobacco Use History - pt sitter Tobacco Use Smoking Status Never smoker 08/06/25 16:01 Hx Tobacco Use No 08/06/25 16:01 Years Smoking Packs Smoked per Day Smoking Cessation Date was within the last 15 years Hx Smoking Cessation Date Hx Smoking Cessation Counseling Hematologic Medial History Hematologic Hx - pt sitter: Hematologic Medical Hx - assembling fabricator Hx of Blood Transfusion No 08/06/25 16:01 Hx of Transfusion in last 3 No 08/06/25 16:01 Months Date of Last Transfusion (if within last 3 months) Ever experience any problems No 08/06/25 16:01 with transfusion(s)? Specify any problems Hx of Preganancy in last 3 N/A 08/06/25 16:01 Months Nurse Filling Out Transfusion JZODELANO 08/06/25 16:01 Questions: Date: 08/06/25 08/06/25 16:01 Time: 16:02 08/06/25 16:01 Patient unable to answer at this time (ie. confused, unrespo /Reproduction History /Reproductive History - pt sitter: /Reproductive Hx- pt sitter Hx Now No 08/06/25 16:01 Gestational Age (in weeks): EDC: Hx Hx Para Hx Section SAB No 08/06/25 16:01 [facility] Medical History (Updated 08/06/25 @ 16:01 by Nora Crocker) Wears hearing aid Wears glasses Wears dentures Wears partial dentures Arthritis Dietary restriction Non-smoker MGUS (monoclonal gammopathy of unknown significance) Hearing loss, bilateral Traumatic injury of lower leg GERD (gastroesophageal reflux disease) Anemia Vitamin D deficiency, unspecified Hypercalcemia Hyperkalemia Insomnia, unspecified Complex regional pain syndrome I, unspecified Sensorineural hearing loss, bilateral Diabetes Abnormal blood cell count Home Medications ???Medication ???Instructions ???Recorded ???Last Taken ???Type ascorbic acid (vitamin C) 1,000 mg 1,000 mg PO DAILY 01/28/18 Unkno wn History tablet (Vitamin C) duloxetine 60 mg capsule,delayed 60 mg PO BID 01/28/18 Unknown Hist ory release multivitamin (Daily Multiple 1 ea PO DAILY 01/28/18 Unknown His tory tablet) naloxegol 25 mg tablet (Movantik) 25 mg PO DAILY Constipation 01/28 (more content not included)... Normal [facility] Oncology Visit Reporton 07-02 Oncology Visit Report [facility] [place] [address] OFFICE VISIT Date of Service: 07/29/25 0959 MR#: [id number] Acct: [id number] Name: OCNG HARRISON Rep #: [id number] : 1965 From: Anders Medina MD Age/Sex: 60/M Location: [facility] [place] Status: Signed HPI Subjective Date of Service 07/29/25 Chief Complaint Abnormal protein in blood on testing, MGUS History of Present Illness 60-year-old male with incidental finding of low level, 0.3 g per DL monoclonal M spike. [facility] Medical History (Updated 07/29/25 @ 10:[address] Anders Medina MD) MGUS (monoclonal gammopathy of unknown significance) Hearing loss, bilateral Traumatic injury of lower leg GERD (gastroesophageal reflux disease) Anemia Vitamin D deficiency, unspecified Hypercalcemia Hyperkalemia Insomnia, unspecified Complex regional pain syndrome I, unspecified Sensorineural hearing loss, bilateral Diabetes Abnormal blood cell count Surgical History Hx of amputation below knee Hx of vasectomy Family History Mother Cancer cervical Other Diabetes Heart disease Hypertension Social History (Updated 07/29/25 @ 10:06 by Ivette Beck) Smoking Status: Never smoker alcohol intake: never substance use type: does not use ROS Constitutional Constitutional: Reports systems reviewed and no addt'l complaints, except as documented; Denies fever(s), night sweats or weight loss Eyes Eyes: Reports systems reviewed and no addt'l complaints, except as documented ENT HEENT: Reports systems reviewed and no addt'l complaints, except as documented; Denies mouth lesions Cardiovascular Cardiovascular: Reports systems reviewed and no addt'l complaints, except as documented; Denies chest pain with activity or edema Respiratory/Chest Respiratory/Chest: Reports systems reviewed and no addt'l complaints, except as documented and cough; Denies dyspnea Gastrointestinal Gastrointestinal: Reports systems reviewed and no addt'l complaints, except as documented and constipation; Denies change in bowel habits, dysphagia, hematochezia or melena Genitourinary Genitourinary: Reports systems reviewed and no addt'l complaints, except as documented; Denies dysuria Musculoskeletal Musculoskeletal: Reports systems reviewed and no addt'l complaints, except as documented; Denies back pain Integumentary Integumentary: Reports systems reviewed and no addt'l complaints, except as documented, dry skin and pruritus; Denies new lesions Neurologic Neurologic: Reports systems reviewed and no addt'l complaints, except as documented; Denies focal weakness or paresthesias Psychiatric Psychiatric: Reports systems reviewed and no addt'l complaints, except as documented Endocrine Endocrinology: Reports systems reviewed and no addt'l complaints, except as documented Hematologic/Lymphatic Hematologic/Lymphatic: Reports systems reviewed and no addt'l complaints, except as documented; Denies lymphadenopathy Allergic/Immunologic Allergic/Immunologic: Reports systems reviewed and no addt'l complaints, except as documented Intake Vital Signs 07/29/25 10:01 07/29/25 10:15 Height 5 ft 7 in 5 ft 7 in Weight: 83.178 kg BMI 28.7 BP 122/82 H Blood Pressure Location Lt brachial Position Sitting Respiration 16 Pulse 101 H Pulse Source Monitor Temp 97.8 F Temperature Source Temporal Artery Pulse Oximetry (%) 98 Oxygen Delivery Method room air Intake Is patient in pain?: Yes (chronic pain in legs and back ) Pain scale (1-10): 7 Allergies adhesive tape Adverse Reaction (Verified 07/29/25 10:04) Rash Medications ???Medication ???Instructions ???Recorded ???Confirmed ???Type ascorbic acid (vitamin C) 1,000 mg 1,000 mg PO DAILY 01/28/1807/29 History tablet (Vitamin C) duloxetine 60 mg capsule,delayed 60 mg PO BID 01/28/18 07/29/25 His tory release multivitamin (Daily Multiple 1 ea PO DAILY 01/28/18 07/29/25 Hi story tablet) naloxegol 25 mg tablet (Movantik) 25 mg PO DAILY PRN Constipation 0 01/28/18 07/29/25 History omeprazole 40 mg capsule,delayed 40 mg PO BID 01/28/18 07/29/25 His tory release mecobalamin (vitamin B12) 1,000 1,000 mcg PO QDAY 07/23/25 5 History mcg lozenges metformin 500 mg tablet 500 mg PO BID 07/23/25 07/29/25 Hi story terazosin 1 mg capsule 1 mg PO QDAY 07/23/25 07/29/25 His tory cholecalciferol (vitamin D3) 125 125 mcg PO QDAY 07/29/25 07/29/25 History mcg (5,000 unit) capsule tapentadol 100 mg tablet (Nucynta) 100 mg PO BID 07/29/25 07/29/25 History Have you fallen in the past year?: No Central Venous Access Central Venous Access: No Outside (more content not included)... Normal [facility] [id number] 06-13-2025 [facility] Normal . [facility] Comment on above: Order Comment: [id number] TAPENTADOL URINE Result Comment: Test Ordered: [id number] Apolipoprotein B Apolipoprotein B 73 mg/dL BN Reference Range: <90 Desirable < 90 Borderline High 90 - 99 High 100 - 130 Very High >130 ASCVD RISK THERAPEUTIC TARGET CATEGORY APO B (mg/dL) Very High Risk <80 (if extreme risk <70) High Risk <90 Moderate Risk <90 Performed at: - [facility], [place], [place] [id number] Community Outreach Worker: Jay Clinton MD, Phone: [phone] Performed at: - [facility] [address] [id number] Community Outreach Worker: Catrachito Armas PhD, Phone: [phone] Performed By: #### L 505.5000, L3410.9992 #### [facility] [address] [place], [address] Absolute lymphocyte countOrd ered By: Afsaneh Green on 06-10-2025 Lymphocytes Auto (Unsp spec) [#/Vol] 2.16 10*3/uL 0.83-4.51 [facility] Absolute neutrophil countOrd ered By: Afsaneh Green on 06-10-2025 Neutrophils (Bld) [#/Vol] 8.0 10*3/uL High 2.0-7.7 [facility] Anion gap in Serum or Plasma Ordered By: Afsaneh Green on 06-10-2025 Anion gap [Moles/Vol] 12 mmol/L 5-15 [facility] Automated lymphocyte count a s percentage of total leukocytesOrdered By: Afsaneh Green on 06-10-2025 Lymphocytes/100 WBC Auto (Unsp spec) 19.0 % 19-41 [facility] BUN/creatinine ratioOrdered By: Afsaneh Green on 06-10-2025 Urea nitrogen/Creatinine [Mass ratio] 24.7 mg/mg High 10-20 [facility] Basophil percentageOrdered B y: Afsaneh Green on 06-10-2025 Basophils/100 WBC (Bld) 0.8 % 0-1 [facility] Bilirubin Test strip Ql (U)O rdered By: Afsaneh Green on 06-10-2025 Bilirubin Ql (U) Negative Negative [facility] Bilirubin, totalOrdered By: Afsaneh Green on 06-10-2025 Bilirubin [Mass/Vol] 0.22 mg/dL 0.00-1.30 [facility] CBC W/Diff, Automatedon 08-10 31-2024 Absolute Lymph 2.16 X10 3/uL Normal 0.83-4.51 [facility] Comment on above: Performed By: #### L 100.0100, L503.0106, L101.9900, L3410.9992, L506.1001, L400.0001, L502.0250, L500.4050, L501.9520 #### [facility] [address] [place], [address] Absolute Neut 8.0 X10 3/uL High 2.0-7.7 [facility] Comment on above: Performed By: #### L 100.0100, L503.0106, L101.9900, L3410.9992, L506.1001, L400.0001, L502.0250, L500.4050, L501.9520 #### [facility] [address] [place], [address] Basophils/100 WBC (Bld) 0.8 % Normal 0-1 [facility] Comment on above: Performed By: #### L 100.0100, L503.0106, L101.9900, L3410.9992, L506.1001, L400.0001, L502.0250, L500.4050, L501.9520 #### [facility] [address] [place], [address] Eosinophils/100 WBC (Bld) 2.1 % Normal 0-5 [facility] Comment on above: Performed By: #### L 100.0100, L503.0106, L101.9900, L3410.9992, L506.1001, L400.0001, L502.0250, L500.4050, L501.9520 #### [facility] [address] [place], [address] Erythrocyte distribution width (RBC) [Ratio] 13.1 % Normal 11.6-14.6 [facility] Comment on above: Performed By: #### L 100.0100, L503.0106, L101.9900, L3410.9992, L506.1001, L400.0001, L502.0250, L500.4050, L501.9520 #### [facility] [address] [place], [address] Hematocrit (Bld) [Volume fraction] 38.1 % Low 40-54 [facility] Comment on above: Performed By: #### L 100.0100, L503.0106, L101.9900, L3410.9992, L506.1001, L400.0001, L502.0250, L500.4050, L501.9520 #### [facility] [address] [place], [address] Hemoglobin (Bld) [Mass/Vol] 12.6 g/dL Low 13.0-16.5 [facility] Comment on above: Performed By: #### L 100.0100, L503.0106, L101.9900, L3410.9992, L506.1001, L400.0001, L502.0250, L500.4050, L501.9520 #### [facility] [address] [place], [address] IG% 0.400 Normal 0.0-0.9 [facility] Comment on above: Result Comment: IG% - Immature Granulocytes (promyelocytes, myelocytes and metamyelocytes) > 1% indicates that a LEFT SHIFT is Present. Performed By: #### L 100.0100, L503.0106, L101.9900, L3410.9992, L506.1001, L400.0001, L502.0250, L500.4050, L501.9520 #### [facility] [address] [place], [address] Lymphocytes/100 WBC (Bld) 19.0 % Normal 19-41 [facility] Comment on above: Performed By: #### L 100.0100, L503.0106, L101.9900, L3410.9992, L506.1001, L400.0001, L502.0250, L500.4050, L501.9520 #### [facility] [address] [place], [address] MCH (RBC) [Entitic mass] 30.1 pg Normal 27.0-32.0 [facility] Comment on above: Performed By: #### L 100.0100, L503.0106, L101.9900, L3410.9992, L506.1001, L400.0001, L502.0250, L500.4050, L501.9520 #### [facility] [address] [place], [address] MCHC (RBC) [Mass/Vol] 33.1 g/dL Normal 32-36 [facility] Comment on above: Performed By: #### L 100.0100, L503.0106, L101.9900, L3410.9992, L506.1001, L400.0001, L502.0250, L500.4050, L501.9520 #### [facility] [address] [place], [address] MCV (RBC) [Entitic vol] 90.9 fL Normal 80-94 [facility] Comment on above: Performed By: #### L 100.0100, L503.0106, L101.9900, L3410.9992, L506.1001, L400.0001, L502.0250, L500.4050, L501.9520 #### [facility] [address] [place], [address] Monocytes/100 WBC (Bld) 7.3 % Normal 0-10 [facility] Comment on above: Performed By: #### L 100.0100, L503.0106, L101.9900, L3410.9992, L506.1001, L400.0001, L502.0250, L500.4050, L501.9520 #### [facility] [address] [place], [address] Neutrophils/100 WBC (Bld) 70.4 % High 47-70 [facility] Comment on above: Performed By: #### L 100.0100, L503.0106, L101.9900, L3410.9992, L506.1001, L400.0001, L502.0250, L500.4050, L501.9520 #### [facility] [address] [place], [address] Nucleated RBC (Bld) [#/Vol] 0 10*3/uL Normal 0-5 [facility] Comment on above: Performed By: #### L 100.0100, L503.0106, L101.9900, L3410.9992, L506.1001, L400.0001, L502.0250, L500.4050, L501.9520 #### [facility] [address] [place], [address] Platelet mean volume (Bld) [Entitic vol] 9.8 fL Normal 6.2-12.0 [facility] Comment on above: Performed By: #### L 100.0100, L503.0106, L101.9900, L3410.9992, L506.1001, L400.0001, L502.0250, L500.4050, L501.9520 #### [facility] [address] [place], [address] Platelets (Bld) [#/Vol] 357 10*3/uL Normal 150-450 [facility] Comment on above: Performed By: #### L 100.0100, L503.0106, L101.9900, L3410.9992, L506.1001, L400.0001, L502.0250, L500.4050, L501.9520 #### [facility] [address] [place], [address] RBC (Bld) [#/Vol] 4.19 10*6/uL Low 4.6-6.2 [facility] Comment on above: Performed By: #### L 100.0100, L503.0106, L101.9900, L3410.9992, L506.1001, L400.0001, L502.0250, L500.4050, L501.9520 #### [facility] [address] [place], [address] (667) RDW SD 43.6 fl Normal 35.1-43.9 [facility] Comment on above: Performed By: #### L 100.0100, L503.0106, L101.9900, L3410.9992, L506.1001, L400.0001, L502.0250, L500.4050, L501.9520 #### [facility] [address] [place], [address] WBC (Bld) [#/Vol] 11.4 10*3/uL High 4.4-11.0 [facility] Comment on above: Performed By: #### L 100.0100, L503.0106, L101.9900, L3410.9992, L506.1001, L400.0001, L502.0250, L500.4050, L501.9520 #### [facility] [address] [place], [address] Carbon dioxide, total [Moles /volume] in Central venous bloodOrdered By: Afsaneh Green on 06-10-2025 CO2 [Moles/Vol] 26.1 mmol/L 21.0-32.0 [facility] Chloride assayOrdered By: Lisa Green on 06-10-2025 Chloride [Moles/Vol] 101 mmol/L 98-108 [facility] Comprehensive Metabolic Prof ilon 06-10-2025 Albumin [Mass/Vol] 4.1 g/dL Normal 3.5-5.0 [facility] Comment on above: Performed By: #### L 100.0100, L503.0106, L101.9900, L3410.9992, L506.1001, L400.0001, L502.0250, L500.4050, L501.9520 #### [facility] [address] [place], [address] Albumin/Globulin [Mass ratio] 1.4 {ratio} Normal 0.9-2.4 [facility] Comment on above: Performed By: #### L 100.0100, L503.0106, L101.9900, L3410.9992, L506.1001, L400.0001, L502.0250, L500.4050, L501.9520 #### [facility] [address] [place], [place], [id number] (432) ALK PHOS 71 U/L Normal 40-129 [facility] Comment on above: Performed By: #### L 100.0100, L503.0106, L101.9900, L3410.9992, L506.1001, L400.0001, L502.0250, L500.4050, L501.9520 #### [facility] [address] [place], [place], [phone] (879) ALT [Catalytic activity/Vol] 26 U/L Normal <=46 [facility] Comment on above: Performed By: #### L 100.0100, L503.0106, L101.9900, L3410.9992, L506.1001, L400.0001, L502.0250, L500.4050, L501.9520 #### [facility] [address] [place], [place], [phone] (135) AST [Catalytic activity/Vol] 22 U/L Normal <=37 [facility] Comment on above: Performed By: #### L 100.0100, L503.0106, L101.9900, L3410.9992, L506.1001, L400.0001, L502.0250, L500.4050, L501.9520 #### [facility] [address] [place], [address] Bilirubin [Mass/Vol] 0.22 mg/dL Normal 0.00-1.30 [facility] Comment on above: Performed By: #### L 100.0100, L503.0106, L101.9900, L3410.9992, L506.1001, L400.0001, L502.0250, L500.4050, L501.9520 #### [facility] [address] [place], [address] BUN/CRE 24.7 RATIO High 10-20 [facility] Comment on above: Performed By: #### L 100.0100, L503.0106, L101.9900, L3410.9992, L506.1001, L400.0001, L502.0250, L500.4050, L501.9520 #### [facility] [address] [place], [address] Calcium [Mass/Vol] 9.5 mg/dL Normal 7.6-11.0 [facility] Comment on above: Performed By: #### L 100.0100, L503.0106, L101.9900, L3410.9992, L506.1001, L400.0001, L502.0250, L500.4050, L501.9520 #### [facility] [address] [place], [address] Chloride [Moles/Vol] 101 mmol/L Normal 98-108 [facility] Comment on above: Performed By: #### L 100.0100, L503.0106, L101.9900, L3410.9992, L506.1001, L400.0001, L502.0250, L500.4050, L501.9520 #### [facility] [address] [place], [place], [phone] (476) CO2 [Moles/Vol] 26.1 mmol/L Normal 21.0-32.0 [facility] Comment on above: Performed By: #### L 100.0100, L503.0106, L101.9900, L3410.9992, L506.1001, L400.0001, L502.0250, L500.4050, L501.9520 #### [facility] [address] [place], [place], [id number] (595) Creatinine [Mass/Vol] 0.87 mg/dL Normal 0.70-1.20 [facility] Comment on above: Performed By: #### L 100.0100, L503.0106, L101.9900, L3410.9992, L506.1001, L400.0001, L502.0250, L500.4050, L501.9520 #### [facility] [address] [place], [place], [id number] GAP 12 Normal 5-15 [facility] Comment on above: Performed By: #### L 100.0100, L503.0106, L101.9900, L3410.9992, L506.1001, L400.0001, L502.0250, L500.4050, L501.9520 #### [facility] [address] [place], [place], [phone] (781) GFR/1.73 sq M.predicted among non-blacks MDRD (S/P/Bld) [Vol rate/Area] 100 mL/min/{1.73_m2} Normal >60 [facility] Comment on above: Result Comment: mL/m in/1.73m2 CKD-EPI Creatinine Equation (2020) Performed By: #### L 100.0100, L503.0106, L101.9900, L3410.9992, L506.1001, L400.0001, L502.0250, L500.4050, L501.9520 #### [facility] [address] [place], [address] Globulin (S) [Mass/Vol] 2.9 g/dL Normal 2.2-4.2 [facility] Comment on above: Performed By: #### L 100.0100, L503.0106, L101.9900, L3410.9992, L506.1001, L400.0001, L502.0250, L500.4050, L501.9520 #### [facility] [address] [place], [address] Glucose [Mass/Vol] 100 mg/dL High 70-99 [facility] Comment on above: Performed By: #### L 100.0100, L503.0106, L101.9900, L3410.9992, L506.1001, L400.0001, L502.0250, L500.4050, L501.9520 #### [facility] [address] [place], [address] Potassium [Moles/Vol] 4.3 mmol/L Normal 3.3-5.1 [facility] Comment on above: Performed By: #### L 100.0100, L503.0106, L101.9900, L3410.9992, L506.1001, L400.0001, L502.0250, L500.4050, L501.9520 #### [facility] [address] [place], [address] Sodium [Moles/Vol] 139 mmol/L Normal 133-145 [facility] Comment on above: Performed By: #### L 100.0100, L503.0106, L101.9900, L3410.9992, L506.1001, L400.0001, L502.0250, L500.4050, L501.9520 #### [facility] [address] [place], [address] T PROT 7.1 g/dL Normal 5.9-8.4 [facility] Comment on above: Performed By: #### L 100.0100, L503.0106, L101.9900, L3410.9992, L506.1001, L400.0001, L502.0250, L500.4050, L501.9520 #### [facility] [address] [place], [address] Urea nitrogen [Mass/Vol] 21 mg/dL High 4-19 [facility] Comment on above: Performed By: #### L 100.0100, L503.0106, L101.9900, L3410.9992, L506.1001, L400.0001, L502.0250, L500.4050, L501.9520 #### [facility] [address] [place], [address] Eosinophil percentageOrdered By: Afsaneh Green on 06-10-2025 Eosinophils/100 WBC (Bld) 2.1 % 0-5 [facility] Erythrocyte Sed Rateon 06-10 SED RATE 3 mm/hr Normal 0-20 [facility] Comment on above: Performed By: #### L 100.0100, L503.0106, L101.9900, L3410.9992, L506.1001, L400.0001, L502.0250, L500.4050, L501.9520 #### [facility] [address] [place], [address] Erythrocyte distribution wid th ratioOrdered By: Afsaneh Green on 06-10-2025 Erythrocyte distribution width (RBC) [Ratio] 13.1 % 11.6-14.6 [facility] Erythrocyte distribution wid th standard deviationOrdered By: Afsaneh Green on 06-10-2025 Erythrocyte distribution width (RBC) [Ratio] 43.6 fl 35.1-43.9 [facility] Erythrocyte sedimentation ra teOrdered By: Afsaneh Green on 06-10-2025 ESR (Bld) [Velocity] 3 mm/h 0-20 [facility] Glomerular filtration rate ( GFR) estimation/1.73 sq m using serum, plasma, or whole bOrdered By: Afsaneh Green on 06-10-2025 GFR/1.73 sq M.predicted among non-blacks MDRD (S/P/Bld) [Vol rate/Area] 100 mL/min/{1.73_m2} >60 [facility] Comment on above: mL/min/1.73m2 CKD-EP I Creatinine Equation (2020) Hematocrit Auto (Bld) [Volum e fraction]Ordered By: Afsaneh Green on 06-10-2025 Hematocrit (Bld) [Volume fraction] 38.1 % Low 40-54 [facility] Hemoglobin measurementOrdere d By: Afsaneh Green on 06-10-2025 Hemoglobin (Bld) [Mass/Vol] 12.6 g/dL Low 13.0-16.5 [facility] Immature granulocytes/100 WB C Auto (Bld)Ordered By: Afsaneh Green on 06-10-2025 Immature granulocytes/100 WBC (Bld) 0.400 % 0.0-0.9 [facility] Comment on above: IG% - Immature Granu locytes (promyelocytes, myelocytes and metamyelocytes) > 1% indicates that a LEFT SHIFT is Present. Ketones Test strip Ql (U)Ord ered By: Afsaneh Green on 06-10-2025 Ketones Ql (U) Negative Negative [facility] - Chemistry and C hemistry - challengeOrdered By: Afsaneh Green on 06-10-2025 AST [Catalytic activity/Vol] 22 U/L <38 [facility] MCV (mean corpuscular volume ) determinationOrdered By: fAsaneh Green on 06-10-2025 MCV (RBC) [Entitic vol] 90.9 fL 80-94 [facility] Mean corpuscular hemoglobin (MCH) determinationOrdered By: Afsaneh Green on 06-10-2025 MCH (RBC) [Entitic mass] 30.1 pg 27.0-32.0 [facility] Mean corpuscular hemoglobin concentration (MCHC) determinationOrdered By: Afsaneh Green on 06-10-2025 MCHC (RBC) [Mass/Vol] 33.1 g/dL 32-36 [facility] Mean platelet volume determi nationOrdered By: Afsaneh Geren on 06-10-2025 Platelet mean volume (Bld) [Entitic vol] 9.8 fL 6.2-12.0 [facility] Microalb:Creat Ratio,Random URon 06-10-2025 Creatinine [Mass/Vol] 152.00 mg/dL Normal 39.00- 259.0 0 [facility] Comment on above: Performed By: #### L 100.0100, L503.0106, L101.9900, L3410.9992, L506.1001, L400.0001, L502.0250, L500.4050, L501.9520 #### [facility] [address] [place], [address] MALB:CREAT 21.3 mg/g CRE Normal <30 mg/g CRE [facility] Comment on above: Performed By: #### L 100.0100, L503.0106, L101.9900, L3410.9992, L506.1001, L400.0001, L502.0250, L500.4050, L501.9520 #### [facility] [address] [place], [address] MICROALBUMIN,UR 32.4 mg/L Normal <20 mg/L [facility] Comment on above: Performed By: #### L 100.0100, L503.0106, L101.9900, L3410.9992, L506.1001, L400.0001, L502.0250, L500.4050, L501.9520 #### [facility] [address] [place], [address] Microscopic analysis of urin e for red blood cells (RBC)Ordered By: Afsaneh Green on 06-10-2025 Microscopic analysis of urine for red blood cells (RBC) 0 SEEN /hpf 0-5 [facility] Monocyte percentageOrdered B y: Afsaneh Green on 06-10-2025 Monocytes/100 WBC (Bld) 7.3 % 0-10 [facility] Mucus LM Ql (Urine sed)Order ed By: Afsaneh Green on 06-10-2025 Mucus Ql (Urine sed) 0 SEEN /hpf [facility] Neutrophil percentageOrdered By: Afsaneh Green on 06-10-2025 Neutrophils/100 WBC (Bld) 70.4 % High 47-70 [facility] Nitrite Test strip Ql (U)Ord ered By: Afsaneh Green on 06-10-2025 Nitrite Ql (U) Negative Negative [facility] Nucleated red blood cell per centageOrdered By: Afsaneh Green on 06-10-2025 Nucleated RBC/100 WBC (Bld) [Ratio] 0 % 0-5 [facility] Platelet countOrdered By: Lisa Green on 06-10-2025 Platelets (Bld) [#/Vol] 357 10*3/uL 150-450 [facility] Potassium measurement (mass/ volume)Ordered By: Afsaneh Green on 06-10-2025 Potassium (Unsp spec) [Mass/Vol] 4.3 mmol/L 3.3-5.1 [facility] Protein Test strip Ql (U)Ord ered By: Afsaneh Green on 06-10-2025 Protein Ql (U) 15 mg/dl High Negative [facility] RBC Auto (Bld) [#/Vol]Ordere d By: Afsaneh Green on 06-10-2025 RBC (Bld) [#/Vol] 4.19 10*6/uL Low 4.6-6.2 [facility] Random urine creatinine monica urement (mass/volume)Ordered By: Afsaneh Green on 06-10-2025 Creatinine Unsp time (U) [Mass/Vol] 152.00 mg/dL 39.00-259.0 0 [facility] Serum creatinine measurement (mass/volume)Ordered By: Afsaneh Green on 06-10-2025 Creatinine [Mass/Vol] 0.87 mg/dL 0.70-1.20 [facility] Serum globulin measurementOr dered By: Afsaneh Green on 06-10-2025 Globulin (S) [Mass/Vol] 2.9 g/dL 2.2-4.2 [facility] Serum glucose measurement (m ass/volume)Ordered By: Afsaneh Green on 06-10-2025 Glucose [Mass/Vol] 100 mg/dL High 70-99 [facility] Serum or plasma alanine boswell otransferase (ALT) measurementOrdered By: Afsaneh Green on 06-10-2025 ALT [Catalytic activity/Vol] 26 U/L <47 [facility] Serum or plasma albumin monica urement (mass/volume)Ordered By: Afsaneh Green on 06-10-2025 Albumin [Mass/Vol] 4.1 g/dL 3.5-5.0 [facility] Serum or plasma albumin/glob ulin mass ratioOrdered By: Afsaneh Green on 06-10-2025 Albumin/Globulin [Mass ratio] 1.4 {ratio} 0.9-2.4 [facility] Serum or plasma alkaline kulwinder sphatase measurementOrdered By: Afsaneh Green on 06-10-2025 ALP [Catalytic activity/Vol] 71 U/L 40-129 [facility] Serum or plasma calcium monica urement (mass/volume)Ordered By: Afsaneh Green on 06-10-2025 Calcium [Mass/Vol] 9.5 mg/dL 7.6-11.0 [facility] Serum or plasma urea nitroge n measurement (mass/volume)Ordered By: Afsaneh Green on 06-10-2025 Urea nitrogen [Mass/Vol] 21 mg/dL High 4-19 [facility] Sodium levelOrdered By: Dilcia Green on 06-10-2025 Sodium [Moles/Vol] 139 mmol/L 133-145 [facility] Squamous epithelial cells de tection in urine sediment by light microscopyOrdered By: Afsaneh Green on 06-10-2025 Epithelial cells.squamous LM Ql (Urine sed) 0 SEEN /hpf 0-5 [facility] TSH DL <= 0.005 mIU/L QnOrde red By: Afsaneh Green on 06-10-2025 TSH Qn 2.120 uIU/mL 0.300-4.200 [facility] Thyroid Stim Hormone (TSH)on 06-10-2025 TSH 2.120 uIU/mL Normal 0.300-4.200 [facility] Comment on above: Performed By: #### L 100.0100, L503.0106, L101.9900, L3410.9992, L506.1001, L400.0001, L502.0250, L500.4050, L501.9520 #### [facility] [address] [place], [address] Total proteinOrdered By: Neris Green on 06-10-2025 Protein [Mass/Vol] 7.1 g/dL 5.9-8.4 [facility] Urinalysis, Completeon 06-10 BACTERIA 0 SEEN Normal None Seen [facility] Comment on above: Order Comment: Urine , Random Performed By: #### L 100.0100, L503.0106, L101.9900, L3410.9992, L506.1001, L400.0001, L502.0250, L500.4050, L501.9520 #### [facility] [address] [place], [address] EPI,SQUAMOUS 0 SEEN Normal 0-5 [facility] Comment on above: Order Comment: Urine , Random Performed By: #### L 100.0100, L503.0106, L101.9900, L3410.9992, L506.1001, L400.0001, L502.0250, L500.4050, L501.9520 #### [facility] [address] [place], [address] Mucus Ql (Urine sed) 0 SEEN Normal [facility] Comment on above: Order Comment: Urine , Random Performed By: #### L 100.0100, L503.0106, L101.9900, L3410.9992, L506.1001, L400.0001, L502.0250, L500.4050, L501.9520 #### [facility] [address] [place], [address] RBC 0 SEEN Normal 0-5 [facility] Comment on above: Order Comment: Urine , Random Performed By: #### L 100.0100, L503.0106, L101.9900, L3410.9992, L506.1001, L400.0001, L502.0250, L500.4050, L501.9520 #### [facility] [address] [place], [address] WBC 0 SEEN Normal 0-5 [facility] Comment on above: Order Comment: Urine , Random Performed By: #### L 100.0100, L503.0106, L101.9900, L3410.9992, L506.1001, L400.0001, L502.0250, L500.4050, L501.9520 #### [facility] [address] [place], [address] Urine albumin measurement [facility] detection limit of 20 mg/L or less (mass/volume)Ordered By: Afsaneh Green on 06-10-2025 Albumin DL <= 20 mg/L (U) [Mass/Vol] 32.4 mg/L <20 mg/L [facility] Urine clarityOrdered By: Neris Green on 06-10-2025 Clarity (U) Clear Clear [facility] Urine color determinationOrd ered By: Afsaneh Green on 06-10-2025 Color (U) Yellow Yellow [facility] Urine glucose detectionOrder ed By: Afsaneh Green on 06-10-2025 Glucose Ql (U) Normal mg/dl Normal [facility] Urine leukocyte esterase det ection by dipstickOrdered By: Afsaneh Green on 06-10-2025 Leukocyte esterase Test strip Ql (U) Negative Negative [facility] Urine pHOrdered By: Afsaneh Green on 06-10-2025 pH (U) 6.0 [pH] 5.0 - 8.0 [facility] Urine sediment bacteria coun t by microscopy (number/high power field)Ordered By: Afsaneh Green on 06-10-2025 Bacteria LM.HPF (Urine sed) [#/Area] 0 /[HPF] None Seen [facility] Urine specific gravity measu rementOrdered By: Afsaneh Green on 06-10-2025 Specific gravity (U) [Rel density] 1.015 1.002-1.030 [facility] Urine urobilinogen measureme ntOrdered By: Afsaneh Green on 06-10-2025 Urobilinogen Ql (U) 1 mg/dl High Normal [facility] Vitamin B12on 06-10-2025 Cobalamin (Vitamin B12) [Mass/Vol] 726 pg/mL Normal 180-914 [facility] Comment on above: Performed By: #### L 505.5000, [id number] #### [facility] [address], [place], [id number] Vitamin B12 ser/plasOrdered By: Afsaneh Green on 06-10-2025 Cobalamin (Vitamin B12) [Mass/Vol] 726 pg/mL 180-914 [facility] Vitamin D,25 Hydroxyon 06-10 Vitamin D 25-OH 68.8 ng/mL Normal 30-100 [facility] Comment on above: Result Comment: Juliann min D Status Deficiency: <20 ng/mL (50nmol/L) Insufficiency: 20-30 ng/mL (50-75 nmol/L) Sufficiency: 30-100 ng/mL (75-250 nmol/L) Toxicity: >100 ng/mL (>250 nmol/L) Performed By: #### L 505.5000, L3410.9992 #### [facility] [address] [place], [place], [id number] White blood cell (WBC) count Ordered By: Afsaneh Green on 06-10-2025 WBC (Bld) [#/Vol] 11.4 10*3/uL High 4.4-11.0 [facility] White blood cell countOrdere d By: Afsaneh Green on 06-10-2025 White blood cell count 0 SEEN /hpf 0-5 [facility] L3410.9992on 04-28-2025 [facility] Misc. COMMENT Normal . [facility] Comment on above: Order Comment: [id number] TAPENTADOL URINE Result Comment: Test Ordered: [id number] Tapentadol, Urine Tapentadol, Urine Note: ng/mL UI See Final Results Reference Range: Prlpvt=552 This test was developed and its performance characteristics determined by [facility]. It has not been cleared or approved by the Food and Drug Administration. Tapentadol Positive [A ] UI Reference Range: Ixntbq=771 Tapentadol Conf, [place], [place] >[address] ng/mL UI Reference Range: Smcbsl=652 Tapentadol detected; this finding is consistent with use of medication Nucynta, or generic formulations. Performed at: [address] [id number] Community Outreach Worker: Nicolas Griffin PhD, Phone: [phone] Performed at: [address] [id number] Community Outreach Worker: Catrachito Armas PhD, Phone: [phone] Performed By: #### L 505.5000, L3410.9992 #### [facility], [address] Amphetamine detection with 1 000 ng/mL as cutoffOrdered By: Rory Sims on 04-17-2025 Amphetamines Screen method >1000 ng/mL Ql (U) Negative < 200 ng/mL [facility] No Panel InformationOrdered By: Rory Sims on 04-17-2025 Urine Buprenorphine Qualitative Negative < 200 ng/mL [facility] Urine Oxycodone Screen Negative < 100 ng/mL [facility] Quantitative urine opiates m easurementOrdered By: Rory Sims on 04-17-2025 Opiates Ql (U) Negative < 300 ng/mL [facility] Screening urine fentanyl roberth surementOrdered By: Rory Sims on 04-17-2025 fentaNYL Screen Ql (U) Negative [facility] Urine Drug Screen (VISTA)on 04-17-2025 AMPHETAMINES Negative Normal <1000 ng/mL [facility] Comment on above: Order Comment: PAIN MANAGMENT Performed By: #### L 505.5000, L3410.9992 #### [facility] [address] [place], [address] BARBITIURATES Negative Normal < 200 ng/mL [facility] Comment on above: Order Comment: PAIN MANAGMENT Performed By: #### L 505.5000, L3410.9992 #### [facility] [address] [place], [address] BENZODIAZIPINE Negative Normal < 200 ng/mL [facility] Comment on above: Order Comment: PAIN MANAGMENT Performed By: #### L 505.5000, L3410.9992 #### [facility] [address] [place], [address] BUP Ur Drug Scr Negative Normal < 200 ng/mL [facility] Comment on above: Order Comment: PAIN MANAGMENT Performed By: #### L 505.5000, L3410.9992 #### [facility] [address] [place], [address] COCAINE Negative Normal < 300 ng/mL [facility] Comment on above: Order Comment: PAIN MANAGMENT Performed By: #### L 505.5000, L3410.9992 #### [facility] [address] [place], [address] Fentanyl Negative Normal [facility] Comment on above: Order Comment: PAIN MANAGMENT Performed By: #### L 505.5000, L3410.9992 #### [facility] [address] [place], [address] METHADONE Negative Normal < 300 ng/mL [facility] Comment on above: Order Comment: PAIN MANAGMENT Performed By: #### L 505.5000, L3410.9992 #### [facility] [address] [place], [address] OPIATES Negative Normal < 300 ng/mL [facility] Comment on above: Order Comment: PAIN MANAGMENT Performed By: #### L 505.5000, L3410.9992 #### [facility] [address] [place], [address] OXYCODONE Negative Normal < 100 ng/mL [facility] Comment on above: Order Comment: PAIN MANAGMENT Performed By: #### L 505.5000, L3410.9992 #### [facility] [address] [place], [address] PCP Negative Normal < 25 ng/mL [facility] Comment on above: Order Comment: PAIN MANAGMENT Performed By: #### L 505.5000, L3410.9992 #### [facility] [address] [place], [address] THC Negative Normal < 50 ng/mL [facility] Comment on above: Order Comment: PAIN MANAGMENT Performed By: #### L 505.5000, L3410.9992 #### [facility] [address] [place], [address] Urine benzodiazepine levelOr dered By: Rory Sims on 04-17-2025 Benzodiazepines Ql (U) Negative < 200 ng/mL [facility] Urine cocaine levelOrdered B y: Rory Sims on 04-17-2025 Cocaine Ql (U) Negative < 300 ng/mL [facility] Urine ylwhm-2-nhjwlalhovsnxf abinol (THC) measurementOrdered By: Rory Sims on 04-17-2025 Cannabinoids Screen Ql (U) Negative < 50 ng/mL [facility] Urine phencyclidine (PCP) de tectionOrdered By: Rory Sims on 04-17-2025 Phencyclidine Ql (U) Negative < 25 ng/mL [facility] CBC W/Diff, Automatedon 02-2 Absolute Lymph 2.12 X10 3/uL Normal 0.83-4.51 [facility] Comment on above: Performed By: #### L 505.5000, L3410.9992 #### [facility] [address] [place], [address] Absolute Neut 7.3 X10 3/uL Normal 2.0-7.7 [facility] Comment on above: Performed By: #### L 505.5000, L3410.9992 #### [facility] [address] [place], [address] Basophils/100 WBC (Bld) 0.8 % Normal 0-1 [facility] Comment on above: Performed By: #### L 505.5000, L3410.9992 #### [facility] [address] [place], [address] Eosinophils/100 WBC (Bld) 1.6 % Normal 0-5 [facility] Comment on above: Performed By: #### L 505.5000, L3410.9992 #### [facility] [address] [place], [address] Erythrocyte distribution width (RBC) [Ratio] 12.8 % Normal 11.6-14.6 [facility] Comment on above: Performed By: #### L 505.5000, L3410.9992 #### [facility] [address] [place], [address] Hematocrit (Bld) [Volume fraction] 41.1 % Normal 40-54 [facility] Comment on above: Performed By: #### L 505.5000, L3410.9992 #### [facility] [address] [place], [address] Hemoglobin (Bld) [Mass/Vol] 13.4 g/dL Normal 13.0-16.5 [facility] Comment on above: Performed By: #### L 505.5000, L3410.9992 #### [facility] [address] [place], [address] IG% 0.600 Normal 0.0-0.9 [facility] Comment on above: Result Comment: IG% - Immature Granulocytes (promyelocytes, myelocytes and metamyelocytes) > 1% indicates that a LEFT SHIFT is Present. Performed By: #### L 505.5000, L3410.9992 #### [facility] [address] [place], [address] Lymphocytes/100 WBC (Bld) 20.4 % Normal 19-41 [facility] Comment on above: Performed By: #### L 505.5000, L3410.9992 #### [facility] [address] [place], [address] MCH (RBC) [Entitic mass] 28.9 pg Normal 27.0-32.0 [facility] Comment on above: Performed By: #### L 505.5000, L3410.9992 #### [facility] [address] [place], [address] MCHC (RBC) [Mass/Vol] 32.6 g/dL Normal 32-36 [facility] Comment on above: Performed By: #### L 505.5000, L3410.9992 #### [facility] [address] [place], [address] MCV (RBC) [Entitic vol] 88.8 fL Normal 80-94 [facility] Comment on above: Performed By: #### L 505.5000, L3410.9992 #### [facility] [address] [place], [address] Monocytes/100 WBC (Bld) 6.8 % Normal 0-10 [facility] Comment on above: Performed By: #### L 505.5000, L3410.9992 #### [facility] [address] [place], [address] Neutrophils/100 WBC (Bld) 69.8 % Normal 47-70 [facility] Comment on above: Performed By: #### L 505.5000, L3410.9992 #### [facility] [address] [place], [address] Nucleated RBC (Bld) [#/Vol] 0 10*3/uL Normal 0-5 [facility] Comment on above: Performed By: #### L 505.5000, L3410.9992 #### [facility] [address] [place], [address] Platelet mean volume (Bld) [Entitic vol] 9.2 fL Normal 6.2-12.0 [facility] Comment on above: Performed By: #### L 505.5000, L3410.9992 #### [facility] [address] [place], [address] Platelets (Bld) [#/Vol] 368 10*3/uL Normal 150-450 [facility] Comment on above: Performed By: #### L 505.5000, L3410.9992 #### [facility] [address] [place], [address] RBC (Bld) [#/Vol] 4.63 10*6/uL Normal 4.6-6.2 [facility] Comment on above: Performed By: #### L 505.5000, L3410.9992 #### [facility] [address] [place], [address] RDW SD 41.6 fl Normal 35.1-43.9 [facility] Comment on above: Performed By: #### L 505.5000, L3410.9992 #### [facility] [address] [place], [address] WBC (Bld) [#/Vol] 10.4 10*3/uL Normal 4.4-11.0 [facility] Comment on above: Performed By: #### L 505.5000, L3410.9992 #### [facility] [address] [place], [address] Comprehensive Metabolic Prof ilon 12-21-2024 Albumin [Mass/Vol] 3.7 g/dL Normal 3.2-5.0 [facility] Comment on above: Performed By: #### L 505.5000, L3410.9992 #### [facility] [address] [place], [address] Albumin/Globulin [Mass ratio] 0.9 {ratio} Normal 0.9-2.4 [facility] Comment on above: Performed By: #### L 505.5000, L3410.9992 #### [facility] [address] [place], [address] ALK P 70 U/L Normal 45-117 [facility] Comment on above: Performed By: #### L 505.5000, L3410.9992 #### [facility] [address] [place], [address] ALT [Catalytic activity/Vol] 34 U/L Normal 16-61 [facility] Comment on above: Performed By: #### L 505.5000, L3410.9992 #### [facility] [address] [place], [address] AST [Catalytic activity/Vol] 12 U/L Low 15-37 [facility] Comment on above: Performed By: #### L 505.5000, L3410.9992 #### [facility] [address] [place], [address] Bilirubin [Mass/Vol] 0.50 mg/dL Normal 0.20-1.00 [facility] Comment on above: Result Comment: For patients on eltrombopag therapy, use of Dimension Taberg TBIL is not recommended. Performed By: #### L 505.5000, L3410.9992 #### [facility] [address] [place], [address] BUN/CRE 19.0 RATIO Normal 10-20 [facility] Comment on above: Performed By: #### L 505.5000, L3410.9992 #### [facility] [address] [place], [address] CA,Total 9.8 mg/dL Normal 8.5-10.1 [facility] Comment on above: Performed By: #### L 505.5000, L3410.9992 #### [facility] [address] [place], [address] Chloride [Moles/Vol] 105 mmol/L Normal 98-107 [facility] Comment on above: Performed By: #### L 505.5000, L3410.9992 #### [facility] [address] [place], [address] CO2 [Moles/Vol] 29.0 mmol/L Normal 21.0-32.0 [facility] Comment on above: Performed By: #### L 505.5000, L3410.9992 #### [facility] [address] [place], [address] Creatinine [Mass/Vol] 0.84 mg/dL Normal 0.70-1.30 [facility] Comment on above: Result Comment: The validity of the calculated GFR GFRAA in patients over 70 years has not been determined. Clinical correlation is essential. Performed By: #### L 505.5000, L3410.9992 #### [facility] [address] [place], [address] EST GFR - AA 120 mL/min Normal >60 [facility] Comment on above: Result Comment: Afri can [place] GFR Calc Performed By: #### L 505.5000, L3410.9992 #### [facility] [address] [place], [address] GAP 5 Normal 5-15 [facility] Comment on above: Performed By: #### L 505.5000, L3410.9992 #### [facility] [address] [place], [address] GFR/1.73 sq M.predicted among non-blacks MDRD (S/P/Bld) [Vol rate/Area] 99 mL/min/{1.73_m2} Normal >60 [facility] Comment on above: Result Comment: Non- GFR Calc Performed By: #### L 505.5000, L3410.9992 #### [facility] [address] [place], [address] Globulin (S) [Mass/Vol] 3.9 g/dL Normal 2.2-4.2 [facility] Comment on above: Performed By: #### L 505.5000, L3410.9992 #### [facility] [address] [place], [address] Glucose [Mass/Vol] 111 mg/dL High 74-106 [facility] Comment on above: Result Comment: Fast ing Glucose result from 100 to 125 mg/dL suggests IMPAIRED HOMEOSTASIS per A.D.A. criteria. Performed By: #### L 505.5000, L3410.9992 #### [facility] [address] [place], [address] Potassium [Moles/Vol] 4.1 mmol/L Normal 3.5-5.1 [facility] Comment on above: Performed By: #### L 505.5000, L3410.9992 #### [facility] [address] [place], [address] Sodium [Moles/Vol] 139 mmol/L Normal 136-145 [facility] Comment on above: Performed By: #### L 505.5000, L3410.9992 #### [facility] [address] [place], [address] T PROT 7.6 g/dL Normal 6.4-8.2 [facility] Comment on above: Performed By: #### L 505.5000, L3410.9992 #### [facility] [address] [place], [address] Urea nitrogen [Mass/Vol] 16 mg/dL Normal 7-18 [facility] Comment on above: Performed By: #### L 505.5000, L3410.9992 #### [facility] [address] [place], [address] Lipid Profileon 12-21-2024 Cholesterol [Mass/Vol] 145 mg/dL Normal 200 [facility] Comment on above: Result Comment: <200 mg/dL Desirable 200-240 mg/dL Borderline >240 mg/dL High Risk Performed By: #### L 505.5000, L3410.9992 #### [facility] [address] [place], [address] Cholesterol in HDL [Mass/Vol] 50 mg/dL Normal [facility] Comment on above: Result Comment: The drugs N-Acetylcysteine and Metamizole may falsely depress this assay. Reference Range HDL <40 mg/dL Low HDL Cholesterol HDL >or= 60 mg/dL High HDL Cholesterol Performed By: #### L 505.5000, L3410.9992 #### [facility] [address] [place], [address] Cholesterol in LDL [Mass/Vol] 81 mg/dL Normal 0-130 [facility] Comment on above: Performed By: #### L 505.5000, L3410.9992 #### [facility] [address] [place], [address] Cholesterol in VLDL [Mass/Vol] 14 mg/dL Normal 5-40 [facility] Comment on above: Performed By: #### L 505.5000, L3410.9992 #### [facility] [address] [place], [address] Triglyceride [Mass/Vol] 69 mg/dL Normal [facility] Comment on above: Result Comment: The drugs N-Acetylcysteine and Metamizole may falsely depress this assay. Serum Triglycerides Reference Interval Normal <150 mg/dL Borderline high 150 - 199 mg/dL High 200 - 499 mg/dL Very High > or = 500 mg/dL Performed By: #### L 505.5000, L3410.9992 #### [facility] [address] [place], [place], [address] Microalb:Creat Ratio,Random URon 12-21-2024 Creatinine [Mass/Vol] 108.00 mg/dL Normal NO RAN GE EST. [facility] Comment on above: Performed By: #### L 506.1000, L500.4050, L500.4100, L400.0001, L501.9520, L502.0250, L100.0100, L503.0105 ####[facility] [address] [place], [address] MALB:CRE 13.0 mg/g CRE Normal <30 mg/g CRE [facility] Comment on above: Performed By: #### L 506.1000, L500.4050, L500.4100, L400.0001, L501.9520, L502.0250, L100.0100, L503.0105 ####[facility] [address] [place], [address] MICROALBUMIN,UR 14.0 mg/L Normal NO RANGE EST. [facility] Comment on above: Performed By: #### L 506.1000, L500.4050, L500.4100, L400.0001, L501.9520, L502.0250, L100.0100, L503.0105 ####[facility] [address] [place], [address] Thyroid Stim Hormone (TSH)on 12-21-2024 TSH 2.010 uIU/mL Normal 0.358-3.740 [facility] Comment on above: Performed By: #### L 505.5000, L3410.9992 #### [facility] [address] [place], [address] Urinalysis, Completeon 12-21 RBC 0-5 SEEN Normal 0-5 [facility] Comment on above: Order Comment: 57741 0 TAPENTADOL URINE Performed By: #### L 505.5000, L3410.9992 #### [facility] [address] [place], [address] BACTERIA 0 SEEN Normal None Seen [facility] Comment on above: Order Comment: 10151 0 TAPENTADOL URINE Performed By: #### L 505.5000, L3410.9992 #### [facility] [address] [place], [address] EPI,SQUAMOUS 0 SEEN Normal 0-5 [facility] Comment on above: Order Comment: 04187 0 TAPENTADOL URINE Performed By: #### L 505.5000, L3410.9992 #### [facility] [address] [place], [address] Mucus Ql (Urine sed) 0 SEEN Normal [facility] Comment on above: Order Comment: 09153 0 TAPENTADOL URINE Performed By: #### L 505.5000, L3410.9992 #### [facility] [address] [place], [address] WBC 0 SEEN Normal 0-5 [facility] Comment on above: Order Comment: 00171 0 TAPENTADOL URINE Performed By: #### L 505.5000, L3410.9992 #### [facility] [address] [place], [address] Vitamin B12on 12-21-2024 Cobalamin (Vitamin B12) [Mass/Vol] 405 pg/mL Normal 211-911 [facility] Comment on above: Performed By: #### L 505.5000, L3410.9992 #### [facility] [address] [place], [address] Vitamin D,25 Hydroxyon 12-21 Vitamin D 25-OH 65.4 ng/mL Normal [facility] Comment on above: Result Comment: Juliann min D 25(OH) Status Range Deficiency <20 ng/mL (50nmol/L) Insufficiency 20 - 30 ng/mL (50 - 75 nmol/L) Sufficiency 30 - 100 ng/mL (75 - 250 nmol/L) Toxicity >100 ng/mL (>250 nmol/L) Performed By: #### L 505.5000, L3410.9992 #### [facility] [address] [place], [address] [facility] ([id number]) 1965 M Date Time Provider Department 08/23/24 ESTELA DAY During your visit today, we recorded the following information about you: Tova Juarez LPN 08/23/2024 9:30 AM Signed Stated "I already had my appt with Dr Negron, so I am cx the FU for next week at ". Confirmed that we will do that. Allergies [...] As Of Date 08/23/2024 Noted Resolved Other long-term (current) drug therapy [Z79.899]07/31/2020 Reflex sympathetic dystrophy of right leg - [facility]*05/15/2022 Complex regional pain syndrome type 1 of right *05/15/2022 Osteoarthritis of right knee - [facility] [M17.11] 05/15/2022 Psychogenic pain - [facility] [F45.42] 03/09/2023 Encounter Status:Closed by TOVA JUAREZ on 08/23/[address] [facility] [address] CARDIAC SCORING WO IV CON TRASTon 08-15-2024 CT CARDIAC SCORING WO IV CONTRAST Interpreted By: Boubacar Barrett, STUDY: CT CARDIAC SCORING WO IV CONTRAST; 08/15/2024 5:01 pm INDICATION: Signs/Symptoms:CARDIAC SCREENING HIGH RISK CAD DM 2 W/ HYPERGLYCEMIA. ,E11.65 Type 2 diabetes mellitus with hyperglycemia (Multi) COMPARISON: None. ACCESSION NUMBER(S): [id number] ORDERING CLINICIAN: AFSANEH GREEN TECHNIQUE: Using prospective [...] coronary heart disease events. According to the [place] [employer] Clinical Expert Consensus [...] modify other non-lipid coronary risk factors. Reference: [place]mouth P et al. Circulation. 2007; 115:402-426 MACRO: None Signed by: Boubacar Barrett 08/20/2024 1:54 PM Dictation workstation: [id number] [facility] Keith 07-20-2024 [facility] Telephone (CHRISTIE) CONG HARRISON ([id number]) 1965 M Date Time Provider Department 07/20/24 ESTELA DAY During your visit today, we recorded the following information about you: Tova Juarez LPN 07/20/2024 2:30 PM Signed Spoke with pt re: need for new Pain Management Dr that will provide POR status and stated he would like to go to Dr. Roblero - Pain [facility]. Referral created and sent to [facility] ([facility]) team. Allergies As of Date: 07/20/2024 [...] As Of Date 07/20/2024 Noted Resolved Other long-term (current) drug therapy [Z79.899]07/31/2020 Reflex sympathetic dystrophy of right leg - [facility]*05/15/2022 Complex regional pain syndrome type 1 of right *05/15/2022 Osteoarthritis of right knee - [facility] [M17.11] 05/15/2022 Psychogenic pain - [facility] [F45.42] 03/09/2023 Encounter Status:Closed by TOVA JUAREZ on 07/20/24 [facility] Keith 06-28-2024 CNPN Telephone (CHRISTIE) CONG HARRISON ([id number]) 1965 M Date Time Provider Department 06/28/24 ESTELA DAY During your visit today, we recorded the following information about you: Tova Juarez LPN 06/28/2024 10:41 AM Signed Renewal PA for movantik submitted on CMM to [facility] . Tova Juarez LPN 06/28/2024 3:30 PM Signed Kendrick approved, pt and pharmacy were informed. Allergies As of Date: 06/28/2024 Noted Allergy Reaction ADHESIVE TAPE (ROSINS) 11/17/2007 Date Reviewed: 05/25/2024 Reviewed by: Estela Day PATjC - Fully Assessed Reason for Visit: Kendrick [...] As Of Date 06/28/2024 Noted Resolved Other long-term (current) drug therapy [Z79.899]07/31/2020 Reflex sympathetic dystrophy of right leg - [facility]*05/15/2022 Complex regional pain syndrome type 1 of right *05/15/2022 [facility] [facility] [M17.11] 05/15/2022 Psychogenic pain - [facility] [F45.42] 03/09/2023 Encounter Status:Closed by TOVA JUAREZ on 06/28/24 [facility] Keith 06-25-2024 BRETN Telephone (VICENTE) CONG HARRISON ([id number]) 1965 M Date Time Provider Department 06/25/24 RORY SCHULTZ During your visit today, we recorded the following information about you: Fred Jean RN 06/25/2024 11:13 AM Signed LM on regarding form being mailed out to change POR with [facility]. Fred Jean RN June 25, 2024 11:13 AM Allergies As of Date: 06/25/2024 Noted Allergy Reaction ADHESIVE TAPE (ROSINS) 11/17/2007 Date Reviewed: 05/25/2024 Reviewed by: Estela Day PA-C - Fully Assessed Reason for Visit: Change in POR for [facility] [Other] Prescriptions as of 06/25/2024 - tapentadol [...] As Of Date 06/25/2024 Noted Resolved Other meterman (current) drug therapy [Z79.899]07/31/2020 Reflex sympathetic dystrophy of right leg - [facility]*05/15/2022 Complex regional pain syndrome type 1 of right *05/15/2022 Osteoarthritis of right knee - [facility] [M17.11] 05/15/2022 Psychogenic pain - [facility] [F45.42] 03/09/2023 Encounter Status:Closed by FRED JEAN [facility]STIE [facility] CONG HARRISON ([id number]) 1965 M Date Time Provider Department 05/25/24 [...] seen for left leg pain - [facility] Patient was last seen on: 04/04/24 At [...] 1 of left lower extremity - [facility] - ICD9: 337.22, ICD10: G90.522 (primary diagnosis) [...] have this reprogrammed (more content not included)... Normal [facility] CNOVon 05-02-2024 CNOV Office Visit (UCWSTR ) CONG HARRISON ([id number]) 1965 M Date Time Provider Department 05/02/24 5:30 PM ASHUTOSH HENNESSY [facility] During your visit today, we recorded the following information about you: Temperature Pulse Respiration Blood pressure 97.6 degrees 96/minute 18/minute 160/88 Weight 87.4 kg Ashutosh Hennessy APRN.OIL FIRE SPECIALIST 05/02/2024 6:50 PM Signed Subjective HPI Nontoxic-appearing [...] cough. Due (more content not included)... Normal [facility] 05-02-2024 [facility] Telephone (UCWSTR) CONG HARRISON ([id number]) 1965 M Date Time Provider Department 05/02/24 ASHUTOSH HENNESSY [facility] During your visit today, we recorded the following information about you: Ashutosh Hennessy APRN.CNP 05/02/2024 6:09 PM Signed Please inform patient that chest x-ray is unremarkable. Prescription sent to [facility]. Ashutosh Hennessy APRN.Joselito Lugo 05/02/2024 6:43 PM Signed Talked to patient and he verbally understands his chest xray was remarkable. Joselito Ruffin Allergies As of Date: 05/02/2024 Noted Allergy Reaction ADHESIVE TAPE (ROSINS) 11/17/2007 Date Reviewed: 05/02/2024 Reviewed by: Ashutosh Hennessy APRN.CNP - Fully Assessed Reason for Visit: Results [...] As Of Date 05/02/2024 Noted Resolved Other long-term (current) drug therapy [Z79.899]07/31/2020 Reflex sympathetic dystrophy of right leg - [facility]*05/15/2022 Complex regional pain syndrome type 1 of right *05/15/2022 Osteoarthritis of right knee - [facility] [M17.11] 05/15/2022 Psychogenic pain - [facility] [F45.42] 03/09/2023 Encounter Status:Closed by JOSELITO RUFFIN on 05/02/24 Normal [facility] XR CHEST 2V FRONTAL/LATon XR [...] thoracic spine.. IMPRESSION: No acute radiographic abnormality. Specimen Transporter: [facility] Transcribe Date/Time: May 02 2024 6:02P Dictated by : SIDNEY RUSSO MD This examination was interpreted and the report reviewed and electronically signed by: SIDNEY RUSSO MD on May 02 2024 6:03PM EST [id number] Normal [facility] XR Chest PA and Lateralon IMPRESSION: No acute radiographic abnormality. Specimen Transporter: [facility] Transcribe Date/Time: May 02 2024 6:02P Dictated by : SIDNEY RUSSO MD This examination was interpreted and the report reviewed and electronically signed by: SIDNEY RUSSO MD on May 02 2024 6:03PM [facility] DIVISION OF RADIOLOGY * * *Final [...] the thoracic spine.. DIVISION OF RADIOLOGY Provider, Temi Johanna Horn - 05/02/2024 * * *Final Report* * [...] spine.. IMPRESSION IMPRESSION: No acute radiographic abnormality. Specimen Transporter: HARJIT Transcribe Date/Time: May 02 2024 6:02P Dictated by : SIDNEY RUSSO MD This examination was interpreted and the report reviewed and electronically signed by: SIDNEY RUSSO MD on May 02 2024 6:03PM [facility] Radiology Study observation (narrative) [facility] XR Chest PA and LateralOrder ed By: Ccf Provider on 05-02-2024 [facility] CNPNon 04-26-2024 [facility] Telephone (CHRISTIE) CONG HARRISON ([id number]) 1965 M Date Time Provider Department 04/26/24 ESTELA DAY During your visit today, we recorded the following information about you: Tova Juarez LPN 04/26/2024 11:16 AM Signed VM received from pt requesting a C9 for the (approved) scooter carrier and cover. Spoke with Juanis Morton who suggested calling [employer] for actual equipment code. Called [employer], left message for Rep to send the codes or call back with information to fill out C9. Tova Juarez LPN 05/08/2024 5:28 PM Signed Spoke with Rep @ [employer] after not hearing from them, asked if there was a decision made on what car carrier and cover were needed for the scooter, stated they were not sure, will look into this and return the call. Direct number given. Tova Juarez, CLUB LICENSEE 05/23/2024 11:16 AM Signed No response from [employer] or pt to proceed with C9 for car carrier for scooter. Spoke with pt who stated "I haven't heard anything from them either" Called and spoke with Dina Environmental Adviser, stated pt told us he is almost done with the lease on his car and will be getting another one soon, so we didn't want to proceed until this until pt has his next car, to make sure of getting the correct carrier". Explained pt never told us this was the holdup. Discussed that [employer] will generate a C9 and send it to us when he has his new car. Spoke with pt and updated on process of getting the carrier. Stated "I understand". Allergies As of Date: 04/26/2024 Noted Allergy [...] As Of Date 04/26/2024 Noted Resolved Other meterman (current) drug therapy [Z79.899]07/31/2020 Reflex sympathetic dystrophy of right leg - [facility]*05/15/2022 Complex regional pain syndrome type 1 of right *05/15/2022 Osteoarthritis of right knee - [facility] [M17.11] 05/15/2022 Psychogenic pain - [facility] [F45.42] 03/09/2023 Encounter Status:Closed by TOVA JUAREZ on 05/23/24 [facility]OVfay 04-04-[facility] (CHRISTIE ) CONG HARRISON ([id number]) 1965 M Date Time Provider Department 04/04/24 [...] seen for left leg pain - [facility] Patient was last seen on: 02/07/24 At that time, the treatment plan was: see notes Current Meds: Nucynta - last dose this am, Cymbalta - this am, Prilosec - this am, Hytrin - last pm, Movantik - this am Efficacy: "help to a certain degree" Side effects: none TENS unit: has SCS [...] (Temporal) Resp 20 Ht 170.2 cm (5' 7") Wt 88.5 kg (195 lb) SpO2 99% [...] 1 of left lower extremity - [facility] - ICD9: 337.22, ICD10: G90.522 (primary diagnosis) - TOXASSURE? FLEX 23, URINE 2. Complex regional pain syndrome type 1 of right lower extremity - C - ICD9: 337.22, ICD10: G90.521 3. Osteoarthritis of right knee, unspecified osteoarthritis type - [facility] - ICD9: 715.96, ICD10: M17.11 4. Psychogenic pain - [facility] - ICD9: 307.80, ICD10: F45.42 PLAN: Repeat urine drug screen this visit. The patient will continue with Nucynta, duloxetine, terazosin, omeprazole, Movantik, and MiraLAX. He was encouraged to increase fluid and fiber intake. He will continue using his spinal cord stimulator. Patient will continue with core strengthening and range of motion exercises. He was encouraged to lose weight. F (more content not included)... [facility] Keith 04-04-2024 GARTH Telephone (PAMMJK) HARRISONCONG ([id number]) 1965 M Date Time Provider Department 04/04/24 DAWIT HERNANDEZ During your visit today, we recorded the following information about you: Tova Juarez LPN 04/04/2024 9:38 AM Signed Cong here today for FUOV asking if we heard from [employer] or the [employer] about his WC. Spoke with Juanis ([facility]) who stated "we are trying to come to an agreement with the [employer] on the correct type of chair [...] Fully Assessed Reason for Visit: Update on [facility] [Other] Prescriptions as of 04/04/2024 - [...] As Of Date 04/04/2024 Noted Resolved Other long-term (current) drug therapy [Z79.899]07/31/2020 Reflex sympathetic dystrophy of right leg - [facility]*05/15/2022 Complex regional pain syndrome type 1 of right *05/15/2022 Osteoarthritis of right knee - [facility] [M17.11] 05/15/2022 Psychogenic pain - [facility] [F45.42] 03/09/2023 Encounter Status:Closed by TOVA JUAREZ on 04/04/24 [facility] Keith 03-19-2024 CNPN Telephone (VICENTE) CONG HARRISON ([id number]) 1965 M Date Time Provider Department 03/19/24 ESTELA DAY During your visit today, we recorded the following information about you: Tuyet Randolph RN 03/19/2024 1:13 PM Signed Patient called and stated that nucynta script was sent to the wrong pharmacy. Called and cancelled script [facility] pharmacy. New script attached to go to [facility]. SANKET Billy Michael R, PA-C 03/19/2024 [...] As Of Date 03/19/2024 Noted Resolved Other meterman (current) drug therapy [Z79.899]07/31/2020 Reflex sympathetic dystrophy of right leg - [facility]*05/15/2022 Complex regional pain syndrome of left lower ex*05/15/2022 Osteoarthritis of right knee - [facility] [M17.11] 05/15/2022 Psychogenic pain - [facility] [F45.42] 03/09/2023 Prescriptions ordered this encounter Disp Refills Start End TAPENTADOL 100 MG TABLET 120 * 0 03/19/2024 04/18/2024 Cmt: [id number] Route: ORAL Sig: Take 1 tablet by mouth every 6 hours as needed for up to 30 days. Medications Discontinued During This Encounter Prescriptions - tapentadol (NUCYNTA) 100 mg tab (Discontinued) Take 1 tablet by mouth every 6 hours as needed for up to 30 days. Encounter Status:Closed by ESTELA DAY on 03/19/24 [facility]OVon 02-07-2024 [facility] (PAMMJK ) CONG HARRISON ([id number]) 1965 M Date Time Provider Department 02/07/24 8:30 AM ESTELA DAYJK During your visit today, we recorded the following information about you: Temperature Pulse Respiration Blood pressure 97.3 degrees 84/minute 20/minute 139/73 Weight Height 88.9 kg 1.702 m Estela Day PA-C 02/07/2024 8:41 AM Signed This note was created using [employer] ([employer]) Coriter. Subjective Cong Harrison is a 59 year old male. The patient primarily being seen for left leg pain - [facility] Patient was last seen on: 12/27/23 At [...] (Temporal) Resp 20 Ht 170.2 cm (5' 7") Wt 88.9 kg (196 lb) SpO2 99% [...] if you need to have this reprogrammed [phone]. He will continue with core strengthening and range of motion exercises. Follow-up in the office in [address] Hernandez 2. Complex regional pain syndrome type 1 (more content not included)... [facility]on 12-27-2023 [facility] (CHRISTIE ) HUMZA HARRISONDio Wharton ([id number]) 1965 M Date Time Provider Department 12/27/23 8:30 AM ESTELA DAY During your visit today, we recorded the following information about you: Temperature Pulse Respiration Blood pressure 97.5 degrees 93/minute 20/minute 125/76 Weight Height 88.9 kg 1.702 m Estela Day PA-C 12/27/2023 8:56 AM Signed This note was created using [employer] ([employer] Cor[employer]. Subjective Cong Harrison is a 58 year old male. The patient primarily being seen for left leg pain - [facility] Patient was last seen on: 11/15/23 At [...] is worried about his medications because [facility]'s payment system is currently down and he [...] He also has issues with the leg "giving out" when he is on it for longer [...] (Temporal) Resp 20 Ht 170.2 cm (5' 7") Wt 88.9 kg (196 lb) SpO2 97% [...] (more content not included)... Normal [facility] CNOVon 11-15-2023 CNOV Office Visit (PAMMJK ) CONG HARRISON ([id number]) 1965 M Date Time Provider Department 11/15/23 8:30 AM ESTELA DAY During your visit today, we recorded the following information about you: Temperature Pulse Respiration Blood pressure 97.6 degrees 108/minute 18/minute 135/84 Estela Day PA-C 11/15/2023 9:00 AM Signed This note was created using [employer]. Subjective Cong Harrison is a 58 year old male. The patient primarily being seen for left leg pain [facility] Patient was last seen on: 10/05/23 At [...] if you need to have this reprogrammed [phone]. He will continue with (more content not included)... [facility]OVon 10-05-2023 [facility] (PAMMJK ) CONG HARRISON ([id number]) 1965 M Date Time Provider Department 10/05/23 8:15 AM ESTELA DAY During your visit today, we recorded the following information about you: Temperature Pulse Respiration Blood pressure 97.2 degrees 120/minute 18/minute 120/77 Estela Day PA-C 10/05/2023 8:25 AM Signed This note was created using [employer]. Subjective Cong Harrison is a 58 year old male. The patient primarily being seen for left leg pain-[facility] Patient was last seen on: 08/24/23 At [...] will continue with (more content not included)... [facility] Keith 09-16-2023 [facility]AR[facility] Telephone (CHRISTIE) CONG HARRISON ([id number]) 1965 M Date Time Provider Department 09/16/23 ESTELA DAY During your visit today, we recorded the following information about you: Tova Juarez LPN 09/16/2023 2:14 PM Signed Process for [facility] coverage of powerchair request started and per [facility], needs a OT Eval 1st before request can be made for powerchair. Also stated [facility] will decide on powerchair company once request is made. Explained to pt who requested OT Eval be done at [facility] (fax for order [phone]). Just needs order signed. Estela Day PA-C 09/16/2023 2:22 PM Signed Noted, and signed. Tova Juarez LPN 09/20/2023 11:11 AM Signed Order with approval was faxed to [facility] per pt request, 09/16/23 @ 1552. Pt informed. Estela Day PA-C 09/20/2023 12:41 PM [facility]igned [facility] for the wheelchair evaluation, not OT. The order was changed and faxed to [phone]. Estela Day PA-C 09/20/2023 12:41 PM Signed [...] osteoarthritis of right knee [M17.5] Order(s):CONSULT TO PHOTOGRAPHY SPOTTER [496500] Order #: [id number]: 1 FUTURE CONSULT TO PHYSICAL THERAPY [9032] Order #: [id number]: 1 FUTURE Prescriptions as of 09/28/2023 - [...] As Of Date 09/16/2023 Noted Resolved Other meterman (current) drug therapy [Z79.899]07/31/2020 Reflex sympathetic dystrophy of right leg - [facility]*05/15/2022 Complex regional pain syndrome of left lower ex*05/15/2022 Osteoarthritis of right knee - 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 Normal [facility] MRSA PCRon 12-24-2019 MRSA PCR Negative Normal NEGATIVE [facility] Comment on above: Order Comment: Drake brewster: Chavez Result Comment: ANGIE LEONE NOTE: TESTING DONE BY PCR TECHNOLOGY. Performed By: #### L [id number] #### [facility] [address] [place] [address]# [phone] SA PCR Negative Normal NEGATIVE [facility] Comment on above: Order Comment: Drake s: Chavez Result Comment: ANGIE LEONE NOTE: TESTING DONE BY PCR TECHNOLOGY. Performed By: #### L [id number] #### [facility] [address] [place] [address] OR.OPRPTon 12-24-2019 Operative Report Normal [facility] OR.OPRPT [facility] Patient Name: CONG HARRISON [address] [address] [facility] [address] Date of : 67 [place], [place] [address] Unit Number: [id number] Operative Report Patient Status: REG SDC Attending Doctor: Ashutosh Hopkins DO Service Date: 12/24/19 1228 Operative Report Procedure Date: 12/24/19 Attending Physician: Ashutosh Hopkins DO Procedure: Preoperative Diagnosis: 1. Nonfunctioning spinal cord stimulator system 2. Reflect sympathetic dystrophy Postoperative Diagnosis: Same Procedure Type: 1. T12 partial laminectomy for removal of spinal cord stimulator lead 2. Implant Tripole 16 spinal cord stimulator lead ([employer]) 3. Program and activate spinal cord stimulator [...] Ashutosh Hopkins DO Verified/Reviewed by 12/24/19 1245 [facility] AMYLASE ([id number])Ordered By: Chavez Sultana on 03-12-2009 Amylase [Catalytic activity/Vol] 49 U/L Normal 31-124 [facility] Work Phone: Comment on above: Please note refere nce interval change PATIENT NOT FASTINGP ERFORMED BY: [id number] [facility] [id number] CBC with manual diff ([id number]) Ordered By: Hollie Sultana on 03-12-2009 Basophils (Bld) [#/Vol] 0.1 {x10E3/uL} Normal 0.0-0.2 [facility] Work Phone: Comment on above: PATIENT NOT FASTINGC linical Information: ADD DRAW FEE [id number] ADD J 66580 PERFORMED BY: [employer] [facility] [id number] Basophils (Bld) [#/Vol] 0.1 10*3/uL Normal 0.0-0.2 [facility]; [facility] Work Phone: Comment on above: PATIENT NOT FASTINGC linical Information: ADD DRAW FEE [id number] ADD J 63353 PERFORMED BY: [employer] [facility] [id number] Basophils/100 WBC (Bld) 1 % Normal 0-3 [facility] Work Phone: Comment on above: PATIENT NOT FASTINGC linical Information: ADD DRAW FEE [id number] ADD J 49362 PERFORMED BY: [facility] [facility] [id number] Eosinophils (Bld) [#/Vol] 0.0 {x10E3/uL} Normal 0.0-0.4 [facility] Work Phone: Comment on above: PATIENT NOT FASTINGC linical Information: ADD DRAW FEE [id number] ADD J 89605 PERFORMED BY: [address] [id number] Eosinophils (Bld) [#/Vol] 0.0 10*3/uL Normal 0.0-0.4 [facility]; [facility] Work Phone: Comment on above: PATIENT NOT FASTINGC linical Information: ADD DRAW FEE 165610 ADD J 28788 PERFORMED BY: [address] [id number] Eosinophils/100 WBC (Bld) 0 % Normal 0-7 [facility] Work Phone: Comment on above: PATIENT NOT FASTINGC linical Information: ADD DRAW FEE 494235 ADD J 12350 PERFORMED BY: [address] [id number] Erythrocyte distribution width (RBC) [Ratio] 15.9 % Abnormal 11.7-15.0 [facility] Work Phone: Comment on above: PATIENT NOT FASTINGC linical Information: ADD DRAW FEE 327263 ADD J 74253 PERFORMED BY: [address] [id number] Hematocrit (Bld) [Volume fraction] 42.3 % Normal 36.0-50.0 [facility] Work Phone: Comment on above: PATIENT NOT FASTINGC linical Information: ADD DRAW FEE 384361 ADD J 50572 PERFORMED BY: [address] [id number] Hemoglobin (Bld) [Mass/Vol] 14.4 g/dL Normal 12.5-17.0 [facility] Work Phone: Comment on above: PATIENT NOT FASTINGC linical Information: ADD DRAW FEE 515281 ADD J 30992 PERFORMED BY: MINE [place] [id number] [facility] [id number] Lymphocytes (Bld) [#/Vol] 1.6 {x10E3/uL} Normal 0.7-4.5 [facility] Work Phone: Comment on above: PATIENT NOT FASTINGC linical Information: ADD DRAW FEE 385255 ADD J 81495 PERFORMED BY: [address] [id number] Lymphocytes (Bld) [#/Vol] 1.6 10*3/uL Normal 0.7-4.5 [facility]; [facility] Work Phone: Comment on above: PATIENT NOT FASTINGC linical Information: ADD DRAW FEE 507859 ADD J 90904 PERFORMED BY: MINE [address] [id number] Lymphocytes/100 WBC (Bld) 14 % Normal 14-46 [facility] Work Phone: Comment on above: PATIENT NOT FASTINGC linical Information: ADD DRAW FEE [id number] ADD J 53714 PERFORMED BY: MINE [address] [id number] MCH (RBC) [Entitic mass] 28.3 pg Normal 27.0-34.0 [facility] Work Phone: Comment on above: PATIENT NOT FASTINGC linical Information: ADD DRAW FEE [id number] ADD J 23517 PERFORMED BY: [address] [id number] MCHC (RBC) [Mass/Vol] 34.1 g/dL Normal 32.0-36.0 [facility] Work Phone: Comment on above: PATIENT NOT FASTINGC linical Information: ADD DRAW FEE 810057 ADD J 47613 PERFORMED BY: [address] [id number] MCV (RBC) [Entitic vol] 83 fL Normal 80-98 [facility] Work Phone: Comment on above: PATIENT NOT FASTINGC linical Information: ADD DRAW FEE [id number] ADD J 23238 PERFORMED BY: [facility] [id number] [facility] [id number] Monocytes (Bld) [#/Vol] 0.9 {x10E3/uL} Normal 0.1-1.0 [facility] Work Phone: Comment on above: PATIENT NOT FASTINGC linical Information: ADD DRAW FEE [id number] ADD J 95776 PERFORMED BY: M[facility] [id number] [facility] [id number] Monocytes (Bld) [#/Vol] 0.9 10*3/uL Normal 0.1-1.0 [facility]; [facility] Work Phone: Comment on above: PATIENT NOT FASTINGC linical Information: ADD DRAW FEE 896013 ADD J 35769 PERFORMED BY: [facility] Sanhvq[address] [id number] Monocytes/100 WBC (Bld) 8 % Normal 4-13 [facility] Work Phone: Comment on above: PATIENT NOT FASTINGC linical Information: ADD DRAW FEE [id number] ADD J 37314 PERFORMED BY: M[facility] [id number] [facility] [id number] Neutrophils (Bld) [#/Vol] 8.7 {x10E3/uL} Abnormal 1.8-7.8 [facility] Work Phone: Comment on above: PATIENT NOT FASTINGC linical Information: ADD DRAW FEE 737105 ADD J 96222 PERFORMED BY: [place] [id number] [facility] [id number] Neutrophils (Bld) [#/Vol] 8.7 10*3/uL Abnormal 1.8-7.8 [facility]; [facility] Work Phone: Comment on above: PATIENT NOT FASTINGC linical Information: ADD DRAW FEE 995342 ADD J 51448 PERFORMED BY: MINE [address] [id number] Neutrophils/100 WBC (Bld) 77 % Abnormal 40-74 [facility] Work Phone: Comment on above: PATIENT NOT FASTINGC linical Information: ADD DRAW FEE [id number] ADD J 74664 PERFORMED BY: MINE [employer] [id number] [facility] [id number] Platelets (Bld) [#/Vol] 342 {x10E3/uL} Normal 140-415 [facility] Work Phone: Comment on [...] NOT FASTINGC linical Information: ADD DRAW FEE 039672 ADD J 90549 PERFORMED BY: MINE Tarisa [facility] [id number] Platelets (Bld) [#/Vol] 342 10*3/uL Normal 140-415 [facility]; [facility] Work Phone: Comment on [...] NOT FASTINGC linical Information: ADD DRAW FEE 072182 ADD J 00757 PERFORMED BY: MINE [employer] [id number] [facility] [id number] RBC (Bld) [#/Vol] 5.11 {x10E6/uL} Normal 4.10-5.60 [facility] Internal Medicine Work Phone: Comment on above: PATIENT NOT FASTINGC linical Information: ADD DRAW FEE [id number] ADD J [id number] PERFORMED BY: [employer] [id number] [facility] [id number] RBC (Bld) [#/Vol] 5.11 10*6/uL Normal 4.10-5.60 [facility] Internal Medicine; [facility] Work Phone: Comment on above: PATIENT NOT FASTINGC linical Information: ADD DRAW FEE [id number] ADD J [id number] PERFORMED BY: MINE [facility]Corewell [facility]6370 [facility] [id number] WBC (Bld) [#/Vol] 11.3 {x10E3/uL} Abnormal 4.0-10.5 [facility] Internal Medicine Work Phone: Comment on above: PATIENT NOT FASTINGC linical Information: ADD DRAW FEE [id number] ADD J [id number] PERFORMED BY: MINE LabLuis [id number] [facility] [id number] WBC (Bld) [#/Vol] 11.3 10*3/uL Abnormal 4.0-10.5 [facility] Internal Medicine; [facility] Work Phone: Comment on above: PATIENT NOT FASTINGC linical Information: ADD DRAW FEE [id number] ADD J [id number] PERFORMED BY: MINE [facility]Corewell [facility]6370 [facility] [id number] LIPASE ([id number])Ordered By: Jaclyn Sultana on 03-12-2009 Lipase [Catalytic activity/Vol] 30 U/L Normal 0-59 [facility] Internal Medicine Work Phone: Comment on above: PATIENT NOT FASTINGP ERFORMED BY: MINE [facility]Corewell [facility]6370 [facility] [id number] Metabolic Panel, Comprehensi ve ([id number])Ordered By: Hollie Sultana on 03-12-2009 Albumin [Mass/Vol] 4.5 g/dL Normal 3.5-5.5 [facility] Internal Medicine Work Phone: Comment on above: PATIENT NOT FASTINGP ERFORMED BY: MINE [facility]Corewell [facility]6370 [facility] [id number] Albumin/Globulin [Mass ratio] 1.5 {ratio} Normal 1.1-2.5 [facility] Internal Medicine Work Phone: Comment on above: PATIENT NOT FASTINGP ERFORMED BY: MINE LabKelsi [id number] [address]as RoadDublin [place] [id number] ALP [Catalytic activity/Vol] 102 [iU]/L Normal 25-150 [facility] Work Phone: Comment on above: PATIENT NOT FASTINGP ERFORMED BY: CB [facility] [id number] Rodas RoadDublin [place] [id number] ALP [Catalytic activity/Vol] 102 U/L Normal 25-150 [facility]; [facility] Work Phone: Comment on above: PATIENT NOT FASTINGP ERFORMED BY: CB [facility] [id number] Rodas RoadDublin [place] [id number] ALT [Catalytic activity/Vol] 39 [iU]/L Normal 0-55 [facility] Work Phone: Comment on above: PATIENT NOT FASTINGP ERFORMED BY: [facility] [id number] [address] RoadDublin [place] [id number] ALT [Catalytic activity/Vol] 39 U/L Normal 0-55 [facility]; [facility] Work Phone: Comment on above: PATIENT NOT FASTINGP ERFORMED BY: [facility] [id number] [address] RoadDublin [place] [id number] AST [Catalytic activity/Vol] 23 [iU]/L Normal 0-40 [facility] Work Phone: Comment on above: PATIENT NOT FASTINGP ERFORMED BY: [facility] [id number] [address] RoadDublin [place] [id number] AST [Catalytic activity/Vol] 23 U/L Normal 0-40 [facility]; [facility] Work Phone: Comment on above: PATIENT NOT FASTINGP ERFORMED BY: CB [facility] [id number] [address] RoadDublin [place] [id number] Bilirubin [Mass/Vol] 0.5 mg/dL Normal 0.1-1.2 [facility] Work Phone: Comment on above: PATIENT NOT FASTINGP ERFORMED BY: CB [facility] [id number] [address] RoadDublin [place] [id number] Calcium [Mass/Vol] 10.5 mg/dL Normal 8.5-10.6 [facility] Internal Medicine Work Phone: Comment on above: PATIENT NOT FASTINGP ERFORMED BY: MINE LabCo [id number] [address] [facility] [id number] Chloride [Moles/Vol] 101 mmol/L Normal 97-108 Comp re[facility]ive Internal Medicine Work Phone: Comment on above: PATIENT NOT FASTINGP ERFORMED BY: CB [facility] [id number] [address] [facility] [id number] CO2 [Moles/Vol] 26 mmol/L Normal 20-32 [facility] Internal Medicine Work Phone: Comment on above: PATIENT NOT FASTINGP ERFORMED BY: MINE LabCo [id number] [facility] [id number] Creatinine [Mass/Vol] 0.90 mg/dL Normal 0.76-1.27 [facility] Work Phone: Comment on above: PATIENT NOT FASTINGP ERFORMED BY: MINE LabCo [id number] [facility] [id number] GFR/1.73 sq M predicted among blacks MDRD (S/P/Bld) [Vol rate/Area] mL/min/{1.73_m2} Normal [facility] Work Phone: Comment on above: Note: Persistent red uction for 3 months or more in an eGFR<60 mL/min/1.73 m2 defines CKD. Patients with eGFR values>/=60 mL/min/1.73 m2 may also have CKD if evidence of persistentproteinuria is present. Additional information may be found [email or web address]. PATIENT NOT FASTINGP ERFORMED BY: CB [facility] [id number] [facility] [id number] GFR/1.73 sq M.predicted MDRD (S/P/Bld) [Vol rate/Area] mL/min/{1.73_m2} Normal [facility] Work Phone: Comment on above: PATIENT NOT FASTINGP ERFORMED BY: CB [facility] [id number] Rodas RoadEcu Health Medical Centerin [place] [id number] Globulin (S) [Mass/Vol] 3.1 g/dL Normal 1.5-4.5 [facility] Internal Medicine Work Phone: Comment on above: PATIENT NOT FASTINGP ERFORMED BY: CB [facility] [id number] [address] RoadDublin [place] [id number] Glucose [Mass/Vol] 94 mg/dL Normal 65-99 [facility] Internal Medicine Work Phone: Comment on above: PATIENT NOT FASTINGP ERFORMED BY: CB [facility] [id number] Rod[address] Roadblin [place] [id number] Potassium [Moles/Vol] 4.0 mmol/L Normal 3.5-5.2 [facility] Internal Medicine Work Phone: Comment on above: PATIENT NOT FASTINGP ERFORMED BY: MINE LabCo [id number] [address] [facility] [id number] Protein [Mass/Vol] 7.6 g/dL Normal 6.0-8.5 [facility] Internal Medicine Work Phone: Comment on above: PATIENT NOT FASTINGP ERFORMED BY: MINE [facility] [id number] [address] [facility]in [place] [id number] Sodium [Moles/Vol] 139 mmol/L Normal 135-145 [facility] Internal Medicine Work Phone: Comment on above: PATIENT NOT FASTINGP ERFORMED BY: MINE [facility] [id number] [address] [facility] [id number] Urea nitrogen [Mass/Vol] 13 mg/dL Normal 5-26 [facility] Internal Medicine Work Phone: Comment on above: PATIENT NOT FASTINGP ERFORMED BY: CB [facility] [id number] [address] RoadDublin [place] [id number] Urea nitrogen/Creatinine [Mass ratio] 14 mg/mg Normal 8-27 [facility] Internal Medicine Work Phone: Comment on above: PATIENT NOT FASTINGP ERFORMED BY: MINE [facility] [id number] [address] [facility] [place] [id number] Urinalysis, Office ([id number])Or dered By: Danna Miller on 03-12-2009 Bilirubin [...] [facility] Work Phone: Rapid Flu ([phone] x 2)Ordered By: Tuyet Kyle on 03-10-2009 FLUAV Ag IA Ql (Throat) Negative Normal [facility] Work Phone: FLUAV Ag IA Ql (Throat) Negative Normal [facility]; [facility] Work Phone: Vital Signs Date Time Vital Sign Value Performing Clinician Facility 07-29-2025 10:15-0400 Body height 170.[address] Afsaneh Green DO Work Phone: [facility] 07-29-2025 10:15-0400 Body mass index (BMI) [Ratio] 28.7 kg/m2 Dr. Afsaneh Green DO Work Phone: [facility] 07-29-2025 10:15-0400 Body temperature 97.8 [degF] Dr. Afsaneh Green DO Work Phone: [facility] 07-29-2025 10:15-0400 Body weight 83.[address] Afsaneh Green DO Work Phone: [facility] 07-29-2025 10:15-0400 Diastolic blood pressure 82 mm[Hg] Dr. Afsaneh Green DO Work Phone: [facility] 07-29-2025 10:15-0400 Heart rate 101 /min Dr. Afsaneh Green DO Work Phone: [facility] 07-29-2025 10:15-0400 Respiratory rate 16 /min Dr. Afsaneh Green DO Work Phone: [facility] 07-29-2025 10:15-0400 SaO2% (BldA) [Mass fraction] 98 % Dr. Afsaneh Green DO Work Phone: [facility] 07-29-2025 10:15-0400 Systolic blood pressure 122 mm[Hg] Dr. Afsaneh Green DO Work Phone: [facility] 05-25-2024 08:09-0400 Body mass index (BMI) [Ratio] 30.38 kg/m2 Estela Day PA-C Work Phone: [facility] 05-25-2024 08:09-0400 Body weight 88 kg Estela Day PA-C Work Phone: [facility] 05-25-2024 08:09-0400 Diastolic blood pressure 70 mm[Hg] Estela Day PA-C Work Phone: [facility] 05-25-2024 08:09-0400 Heart rate 101 /min Estela Day PA-C Work Phone: [facility] 05-25-2024 08:09-0400 Respiratory rate 18 /min Estela Day PA-C Work Phone: [facility] 05-25-2024 08:09-0400 SaO2% (BldA) [Mass fraction] 99 % Estela Day PA-C Work Phone: [facility] 05-25-2024 08:09-0400 Systolic blood pressure 123 mm[Hg] Estela Day PA-C Work Phone: [facility] 05-02-2024 17:37-0400 Body mass index (BMI) [Ratio] 30.18 kg/m2 Ashutosh Hennessy [employer] FIRE SPECIALIST Work Phone: [facility] 05-02-2024 17:37-0400 Body temperature 97.59 [degF] Ashutosh Hennessy [employer].OIL FIRE SPECIALIST Work Phone: [facility] 05-02-2024 17:37-0400 Body weight 87.4 kg Ashutosh Hennessy [employer].OIL FIRE SPECIALIST Work Phone: [facility] 05-02-2024 17:37-0400 Diastolic blood pressure 88 mm[Hg] Ashutosh Hennessy [employer].OIL FIRE SPECIALIST Work Phone: [facility] 05-02-2024 17:37-0400 Heart rate 96 /min Ashutosh Hennessy [employer].OIL FIRE SPECIALIST Work Phone: [facility] 05-02-2024 17:37-0400 Respiratory rate 18 /min Ashutosh Hennessy [employer].OIL FIRE SPECIALIST Work Phone: [facility] 05-02-2024 17:37-0400 SaO2% (BldA) [Mass fraction] 98 % Ashutosh Hennessy [employer].OIL FIRE SPECIALIST Work Phone: [facility] 05-02-2024 17:37-0400 Systolic blood pressure 160 mm[Hg] Ashutosh Hennessy [employer].OIL FIRE SPECIALIST Work Phone: [facility] 04-04-2024 08:05-0400 Body height 170.2 cm Dawit Hernandez MD Work Phone: [facility] 04-04-2024 08:05-0400 Body mass index (BMI) [Ratio] 30.54 kg/m2 Dawit Hernandez MD Work Phone: [facility] 04-04-2024 08:05-0400 Body temperature 97.39 [degF] Dawit Hernandez MD Work Phone: [facility] 04-04-2024 08:05-0400 Body weight 88.45 kg Dawit Hernandez MD Work Phone: [facility] 04-04-2024 08:05-0400 Diastolic blood pressure 74 mm[Hg] Dawit Hernandez MD Work Phone: [facility] 04-04-2024 08:05-0400 Heart rate 101 /min Dawit Hernandez MD Work Phone: [facility] 04-04-2024 08:05-0400 Respiratory rate 20 /min Dawit Hernandez MD Work Phone: [facility] 04-04-2024 08:05-0400 SaO2% (BldA) [Mass fraction] 99 % Dawit Hernandez MD Work Phone: [facility] 04-04-2024 08:05-0400 Systolic blood pressure 124 mm[Hg] Dawit Hernandez MD Work Phone: [facility] 02-07-2024 08:17-0400 Body height 170.2 cm Estela Day PA-C Work Phone: [facility] 02-07-2024 08:17-0400 Body temperature 97.3 [degF] Estela Day PA-C Work Phone: [facility] 02-07-2024 08:17-0400 Body weight 88.91 kg Estela Day PA-C Work Phone: [facility] 02-07-2024 08:17-0400 Diastolic blood pressure 73 mm[Hg] Estela Day PA-C Work Phone: [facility] 02-07-2024 08:17-0400 Heart rate 84 /min Estela Day PA-C Work Phone: [facility] 02-07-2024 08:17-0400 Respiratory rate 20 /min Estela Day PA-C Work Phone: [facility] 02-07-2024 08:17-0400 SaO2% (BldA) [Mass fraction] 99 % Estela Day PA-C Work Phone: [facility] 02-07-2024 08:17-0400 Systolic blood pressure 139 mm[Hg] Estela Day PA-C Work Phone: [facility] 12-27-2023 08:26-0500 Body height 170.2 cm Estela Day PA-C Work Phone: [facility] 12-27-2023 08:26-0500 Body temperature 97.5 [degF] Estela Day PA-C Work Phone: [facility] 12-27-2023 08:26-0500 Body weight 88.91 kg Estela Day PA-C Work Phone: [facility] 12-27-2023 08:26-0500 Diastolic blood pressure 76 mm[Hg] Estela Day PA-C Work Phone: [facility] 12-27-2023 08:26-0500 Heart rate 93 /min Estela Day PA-C Work Phone: [facility] 12-27-2023 08:26-0500 Respiratory rate 20 /min Estela Day PA-C Work Phone: [facility] 12-27-2023 08:26-0500 SaO2% (BldA) [Mass fraction] 97 % Estela Day PA-C Work Phone: [facility] 12-27-2023 08:26-0500 Systolic blood pressure 125 mm[Hg] Estela Day PA-C Work Phone: [facility] 10-05-2023 08:03-0500 Body temperature 97.2 [degF] Estela Day PA-C Work Phone: [facility] 10-05-2023 08:03-0500 Diastolic blood pressure 77 mm[Hg] Etsela Day PA-C Work Phone: [facility] 10-05-2023 08:03-0500 Heart rate 120 /min Estela Day PA-C Work Phone: [facility] 10-05-2023 08:03-0500 Respiratory rate 18 /min Estela Day PA-C Work Phone: [facility] 10-05-2023 08:03-0500 SaO2% (BldA) [Mass fraction] 98 % Estela Day PA-C Work Phone: [facility] 10-05-2023 08:03-0500 Systolic blood pressure 120 mm[Hg] Estela Day PA-C Work Phone: [facility] 07-13-2023 08:23-0400 Body temperature 97.81 [degF] Estela Day PA-C Work Phone: [facility] 07-13-2023 08:23-0400 Diastolic blood pressure 79 mm[Hg] Estela Day PA-C Work Phone: [facility] 07-13-2023 08:23-0400 Heart rate 108 /min Estela Day PA-C Work Phone: [facility] 07-13-2023 08:23-0400 Respiratory rate 18 /min Estela Day PA-C Work Phone: [facility] 07-13-2023 08:23-0400 SaO2% (BldA) [Mass fraction] 98 % Estela Day PA-C Work Phone: [facility] 07-13-2023 08:23-0400 Systolic blood pressure 114 mm[Hg] Estela aDy PA-C Work Phone: [facility] 06-01-2023 08:10-0400 Body temperature 96.6 [degF] Estela Day PA-C Work Phone: [facility] 06-01-2023 08:10-0400 Diastolic blood pressure 74 mm[Hg] Estela PEPE-C Work Phone: [facility] 06-01-2023 08:10-0400 Heart rate 90 /min Estela PEPE-C Work Phone: [facility] 06-01-2023 08:10-0400 Respiratory rate 18 /min Estela PEPE-C Work Phone: [facility] 06-01-2023 08:10-0400 SaO2% (BldA) [Mass fraction] 98 % Estela PEPE-C Work Phone: [facility] 06-01-2023 08:10-0400 Systolic blood pressure 121 mm[Hg] Estela PEPE-C Work Phone: [facility] 04-20-2023 08:33-0400 Body height 170.2 cm Dawit Hernandez MD Work Phone: [facility] 04-20-2023 08:33-0400 Body temperature 97.11 [degF] Dawit Hernandez MD Work Phone: [facility] 04-20-2023 08:33-0400 Body weight 85.28 kg Dawit Hernandez MD Work Phone: [facility] 04-20-2023 08:33-0400 Diastolic blood pressure 69 mm[Hg] Dawit Hernandez MD Work Phone: [facility] 04-20-2023 08:33-0400 Heart rate 98 /min Dawit Hernandez MD Work Phone: [facility] 04-20-2023 08:33-0400 SaO2% (BldA) [Mass fraction] 98 % Dawit Hernandez MD Work Phone: [facility] 04-20-2023 08:33-0400 Systolic blood pressure 104 mm[Hg] Dawit Hernandez MD Work Phone: [facility] 03-09-2023 08:07-0400 Body height 170.2 cm Dawit Hernandez MD Work Phone: [facility] 03-09-2023 08:07-0400 Body temperature 97.81 [degF] Dawit Hernandez MD Work Phone: [facility] 03-09-2023 08:07-0400 Body weight 85.28 kg Dawit Hernandez MD Work Phone: [facility] 03-09-2023 08:07-0400 Diastolic blood pressure 70 mm[Hg] Dawit Hernandez MD Work Phone: [facility] 03-09-2023 08:07-0400 Heart rate 98 /min Dawit Hernandez MD Work Phone: [facility] 03-09-2023 08:07-0400 Respiratory rate 20 /min Dawit Hernandez MD Work Phone: [facility] 03-09-2023 08:07-0400 SaO2% (BldA) [Mass fraction] 99 % Dawit Hernandez MD Work Phone: [facility] 03-09-2023 08:07-0400 Systolic blood pressure 117 mm[Hg] Dawit Hernandez MD Work Phone: [facility] 01-26-2023 08:04-0400 Diastolic blood pressure 68 mm[Hg] Dawit Hernandez MD Work Phone: [facility] 01-26-2023 08:04-0400 Heart rate 116 /min Dawit Hernandez MD Work Phone: [facility] 01-26-2023 08:04-0400 Systolic blood pressure 121 mm[Hg] Dawit Hernandez MD Work Phone: [facility] 01-26-2023 08:01-0400 Body height 170.2 cm Dawit Hernandez MD Work Phone: [facility] 01-26-2023 08:01-0400 Body temperature 97.2 [degF] Dawit Hernandez MD Work Phone: [facility] 01-26-2023 08:01-0400 Body weight 89.36 kg Dawit Hernandez MD Work Phone: [facility] 01-26-2023 08:01-0400 Respiratory rate 20 /min Dawit Hernandez MD Work Phone: [facility] 01-26-2023 08:01-0400 SaO2% (BldA) [Mass fraction] 97 % Dawit Hernandez MD Work Phone: [facility] 12-14-2022 08:14-0500 Body height 170.2 cm Estela Day PA-C Work Phone: [facility] 12-14-2022 08:14-0500 Body temperature 97 [degF] Estela Day PA-C Work Phone: [facility] 12-14-2022 08:14-0500 Body weight 89.81 kg Estela Day PA-C Work Phone: [facility] 12-14-2022 08:14-0500 Diastolic blood pressure 75 mm[Hg] Estela Day PA-C Work Phone: [facility] 12-14-2022 08:14-0500 Heart rate 128 /min Estela Day PA-C Work Phone: [facility] 12-14-2022 08:14-0500 Respiratory rate 20 /min Estela Day PA-C Work Phone: [facility] 12-14-2022 08:14-0500 SaO2% (BldA) [Mass fraction] 97 % Estela Day PA-C Work Phone: [facility] 12-14-2022 08:14-0500 Systolic blood pressure 126 mm[Hg] Estela Day PA-C Work Phone: [facility] 11-02-2022 08:01-0500 Body height 170.2 cm Estela Day PA-C Work Phone: [facility] 11-02-2022 08:01-0500 Body temperature 97.7 [degF] Estela Day PA-C Work Phone: [facility] 11-02-2022 08:01-0500 Body weight 89.36 kg Estela Day PA-C Work Phone: [facility] 11-02-2022 08:01-0500 Diastolic blood pressure 75 mm[Hg] Estela Day PA-C Work Phone: [facility] 11-02-2022 08:01-0500 Heart rate 103 /min Estela Day PA-C Work Phone: [facility] 11-02-2022 08:01-0500 Respiratory rate 20 /min Estela Day PA-C Work Phone: [facility] 11-02-2022 08:01-0500 SaO2% (BldA) [Mass fraction] 98 % Estela Day PA-C Work Phone: [facility] 11-02-2022 08:01-0500 Systolic blood pressure 127 mm[Hg] Estela Day PA-C Work Phone: [facility] 06-28-2022 08:22-0400 Body height 170.2 cm Estela Day PA-C Work Phone: [facility] 06-28-2022 08:22-0400 Body temperature 97.3 [degF] Estela Day PA-C Work Phone: [facility] 06-28-2022 08:22-0400 Body weight 90.27 kg Estela Day PA-C Work Phone: [facility] 06-28-2022 08:22-0400 Diastolic blood pressure 73 mm[Hg] Estela Day PA-C Work Phone: [facility] 06-28-2022 08:22-0400 Heart rate 109 /min Estela Day PA-C Work Phone: [facility] 06-28-2022 08:22-0400 Respiratory rate 20 /min Estela Day PA-C Work Phone: [facility] 06-28-2022 08:22-0400 SaO2% (BldA) [Mass fraction] 96 % Estela Day PA-C Work Phone: [facility] 06-28-2022 08:22-0400 Systolic blood pressure 112 mm[Hg] Estela Day PA-C Work Phone: [facility] 05-17-2022 08:52-0400 Body height 170.2 cm Estela Day PA-C Work Phone: [facility] 05-17-2022 08:52-0400 Body temperature 97.3 [degF] Estela Day PA-C Work Phone: [facility] 05-17-2022 08:52-0400 Body weight 89.81 kg Estela Day PA-C Work Phone: [facility] 05-17-2022 08:52-0400 Diastolic blood pressure 81 mm[Hg] Estela Day PA-C Work Phone: [facility] 05-17-2022 08:52-0400 Heart rate 96 /min Estela Day PA-C Work Phone: [facility] 05-17-2022 08:52-0400 Respiratory rate 20 /min Estela Day PA-C Work Phone: [facility] 05-17-2022 08:52-0400 SaO2% (BldA) [Mass fraction] 97 % Estela Day PA-C Work Phone: [facility] 05-17-2022 08:52-0400 Systolic blood pressure 128 mm[Hg] Estela Day PA-C Work Phone: [facility] 03-08-2022 08:20-0400 Body height 170.2 cm Dawit Hernandez MD Work Phone: [facility] 03-08-2022 08:20-0400 Body temperature 97.7 [degF] Dawit Hernandez MD Work Phone: [facility] 03-08-2022 08:20-0400 Body weight 88.45 kg Dawit Hernandez MD Work Phone: [facility] 03-08-2022 08:20-0400 Diastolic blood pressure 71 mm[Hg] Dawit Hernandez MD Work Phone: [facility] 03-08-2022 08:20-0400 Heart rate 100 /min Dawit Hernandez MD Work Phone: [facility] 03-08-2022 08:20-0400 Respiratory rate 18 /min Dawit Hernandez MD Work Phone: [facility] 03-08-2022 08:20-0400 Systolic blood pressure 129 mm[Hg] Dawit Hernandez MD Work Phone: [facility] 07-19-2011 11:55-0400 BMI (Body Mass Index) [...] Mass Index) 34.16 kg/m2 Manisha Ribera RN [facility] Internal Medicine Work Phone: 03-14-2011 09:20-0400 Body [...] BMI (Body Mass Index) 33.79 kg/m2 Fred Shirley [facility] Internal Medicine Work Phone: 03-12-2009 15:06-0400 Body Temperature 98.2 [degF] Fred Fern [facility] Internal Medicine Work Phone: Comment on above: Method: Oral 03-12-2009 15:06-0400 Body weight 99.34 kg Fred [facility] Internal Medicine Work Phone: 03-12-2009 15:06-0400 BP Diastolic 78 mm[Hg] Fred [facility] Internal Medicine Work Phone: Comment on above: Patient Position: Sitting; Cuff Location : Left Arm; Cuff Size: Standard 03-12-2009 15:06-0400 BP Systolic 112 mm[Hg] Fred [facility] Internal Medicine Work Phone: Comment on above: Patient Position: Sitting; Cuff Location : Left Arm; Cuff Size: Standard 03-12-2009 15:06-0400 BSA (Body Surface Area) 2.11 m2 Fred [facility] Internal Medicine Work Phone: 03-12-2009 15:06-0400 Head Circumference 0 cm Afsaneh Green [facility] Internal Medicine Work Phone: 03-12-2009 15:06-0400 Head Occipital-frontal circumference 0 cm Fred [facility] Internal Medicine; [facility] Work Phone: 03-12-2009 15:06-0400 Height 171.45 cm Fred [facility] Internal Medicine Work Phone: 03-12-2009 15:06-0400 Pulse (Heart Rate) 82 /min Fred [facility] Internal Medicine Work Phone: Comment on above: Pattern: Regular 03-12-2009 15:06-0400 Respiratory Rate 18 /min Fred [facility] Internal Medicine Work Phone: Comment on above: Pattern: Unlabored 03-10-2009 08:10-0400 Body Temperature 98.5 [degF] Tuyet Kyle [facility] Internal Medicine Work Phone: Comment on above: Method: Undefined 03-10-2009 08:10-0400 Body weight 0 kg Tuyet Kyle [facility] Internal Medicine Work Phone: 03-10-2009 08:10-0400 BP Diastolic 76 mm[Hg] Tuyet Kyle [facility] Internal Medicine Work Phone: Comment on above: Patient Position: Sitting; Cuff Location : Left Arm; Cuff Size: Large 03-10-2009 08:10-0400 BP Systolic 114 mm[Hg] Tuyet Saroj [facility] Internal Medicine Work Phone: Comment on above: Patient Position: Sitting; Cuff Location : Left Arm; Cuff Size: Large 03-10-2009 08:10-0400 Head Circumference 0 cm Afsaneh Green [facility] Internal Medicine Work Phone: 03-10-2009 08:10-0400 Head Occipital-frontal circumference 0 cm Tuyet Kyle [facility]; [facility] Work Phone: 03-10-2009 08:10-0400 Height 0 cm Tuyet Kyle [facility] Internal Medicine Work Phone: 03-10-2009 08:10-0400 Pulse (Heart Rate) 88 /min [facility] Work Phone: Comment on above: Pattern: Regular 03-10-2009 08:10-0400 Respiratory Rate 18 /min Tuyet Kyle [facility] Internal Medicine Work Phone: Comment on above: Pattern: Undefined 03-20-2008 15:47-0400 BMI (Body Mass Index) 33.79 kg/m2 Patricia Ash RN [facility] Internal Medicine Work Phone: 03-20-2008 15:47-0400 Body [...] Phone: 03-20-2008 15:47-0400 Head Circumference 0 cm Afsanehavis Renaeon [facility] Work Phone: 03-20-2008 15:47-0400 [...] 12-21-2007 15:42-0500 Head Circumference 0 cm Afsaneh Nelida [facility] Work Phone: 12-21-2007 15:42-0500 [...] 12:20-0500 Head Circumference 0 cm Afsaneh Green [facility] Internal Medicine Work Phone: 09-25-2007 12:20-0500 Head Occipital-frontal circumference 0 cm Patricia Ash RN [facility]; [facility] Work Phone: 09-25-2007 12:20-0500 Height 171.45 cm Patricia Ash RN [facility] Work Phone: 09-25-2007 12:20-0500 Pulse (Heart Rate) 80 /min Patricia Ash RN [facility] Internal Medicine Work Phone: Comment on above: Pattern: Regular 09-25-2007 12:20-0500 Respiratory Rate 20 /min Patricia Ash RN [facility] Internal Medicine Work Phone: Comment on above: Pattern: Unlabored 09-15-2007 09:16-0500 BMI (Body Mass Index) 32.1 kg/m2 [facility] Internal Medicine Work Phone: 09-15-2007 09:16-0500 Body Temperature 98.9 [degF] [facility] Internal Medicine Work Phone: Comment on above: Method: Oral 09-15-2007 09:16-0500 Body weight 94.35 kg [facility] Internal Medicine Work Phone: 09-15-2007 09:16-0500 BP Diastolic 68 mm[Hg] [facility] Internal Medicine Work Phone: Comment on above: Patient Position: Sitting; Cuff Location : Right Arm; Cuff Size: Standard 09-15-2007 09:16-0500 BP Systolic 130 mm[Hg] [facility] Internal Medicine Work Phone: Comment on above: Patient Position: Sitting; Cuff Location : Right Arm; Cuff Size: Standard 09-15-2007 09:16-0500 BSA (Body Surface Area) 2.07 m2 [facility] Internal Medicine Work Phone: 09-15-2007 09:16-0500 Head Circumference 0 cm Afsaneh Green [facility] Work Phone: 09-15-2007 09:16-0500 Head Occipital-frontal circumference 0 cm [facility]; [facility] Work Phone: 09-15-2007 09:16-0500 Height 171.45 cm [facility] Internal Medicine Work Phone: 09-15-2007 09:16-0500 Pulse (Heart Rate) 84 /min [facility] Internal Medicine Work Phone: Comment on above: Pattern: Regular 09-15-2007 09:16-0500 Respiratory Rate 18 /min [facility] Internal Medicine Work Phone: Comment [...] Phone: 09-14-2007 11:51-0500 Head Circumference 0 cm Afsanehavis Green [facility] Work Phone: 09-14-2007 11:51-0500 [...] 09-13-2007 11:45-0500 Body Temperature 98.2 [degF] Patti Ambrocio [facility] Internal Medicine Work Phone: Comment on above: Method: Oral 09-13-2007 11:45-0500 Body weight 0 kg Patti Almanzarman [facility] Internal Medicine Work Phone: 09-13-2007 11:45-0500 BP Diastolic 76 mm[Hg] [facility] Work Phone: Comment on above: Patient Position: Sitting; Cuff Location : Right Arm; Cuff Size: Standard 09-13-2007 11:45-0500 BP Systolic 104 mm[Hg] [facility] Work Phone: Comment on above: Patient Position: Sitting; Cuff Location : Right Arm; Cuff Size: Standard 09-13-2007 11:45-0500 Head Circumference 0 cm Afsaneh Green [facility] Work Phone: 09-13-2007 11:45-0500 Head Occipital-frontal circumference 0 cm Patticarole AlmanzarAmbrocio [facility]; [facility] Work Phone: 09-13-2007 11:45-0500 Height 0 cm Patti Almanzarman [facility] Medicine Work Phone: 09-13-2007 11:45-0500 Pulse (Heart Rate) 84 /min Patti Almanzarman [facility] Internal Medicine Work Phone: Comment on above: Pattern: Regular 09-13-2007 11:45-0500 Respiratory Rate 18 /min Patticarole AlmanzarAmbrocio [facility] Internal Medicine Work Phone: Comment on above: Pattern: Unlabored 09-12-2007 12:04-0500 BMI (Body Mass Index) 32.1 kg/m2 Danna [facility] Internal Medicine Work Phone: 09-12-2007 12:04-0500 Body Temperature 98.1 [degF] [facility] Internal Medicine Work Phone: Comment on above: Method: Oral 09-12-2007 12:04-0500 Body weight 94.35 kg [facility] Internal Medicine Work Phone: 09-12-2007 12:04-0500 BP Diastolic 60 mm[Hg] [facility] Internal Medicine Work Phone: Comment on above: Patient Position: Sitting; Cuff Location : Right Arm; Cuff Size: Standard 09-12-2007 12:04-0500 BP Systolic 110 mm[Hg] [facility] Internal Medicine Work Phone: Comment on above: Patient Position: Sitting; Cuff Location : Right Arm; Cuff Size: Standard 09-12-2007 12:04-0500 BSA (Body Surface Area) 2.07 m2 [facility] Internal Medicine Work Phone: 09-12-2007 12:04-0500 Head Circumference 0 cm Afsaneh Green [facility] Medicine Work Phone: 09-12-2007 12:04-0500 Head Occipital-frontal circumference 0 cm [facility]; [facility] Work Phone: 09-12-2007 12:04-0500 Height 171.45 cm [facility] Internal Medicine Work Phone: 09-12-2007 12:04-0500 Pulse (Heart Rate) 112 /min [facility] Internal Medicine Work Phone: Comment on above: Pattern: Regular 09-12-2007 12:04-0500 Respiratory Rate 18 /min [facility] Internal Medicine Work Phone: Comment [...] 09-05-2007 11:44-0500 Body Temperature 98.4 [degF] [facility] Work Phone: Comment on above: Method: Oral 09-05-2007 11:44-0500 Body weight 0 kg [facility] Work Phone: 09-05-2007 11:44-0500 BP Diastolic 62 mm[Hg] [facility] Work Phone: Comment on above: Patient Position: Sitting; Cuff Location : Left Arm; Cuff Size: Standard 09-05-2007 11:44-0500 BP Systolic 100 mm[Hg] [facility] Work Phone: Comment on above: Patient Position: Sitting; Cuff Location : Left Arm; Cuff Size: Standard 09-05-2007 11:44-0500 Head Circumference 0 cm Afsaneh Green [facility] Work Phone: 09-05-2007 11:44-0500 Head Occipital-frontal circumference 0 cm [facility]; [facility] Work Phone: 09-05-2007 11:44-0500 Height 0 cm [facility] Work Phone: 09-05-2007 11:44-0500 Pulse (Heart Rate) 64 /min [facility] Work Phone: Comment on above: Pattern: Regular 09-05-2007 11:44-0500 Respiratory Rate 18 /min Patti Ambrocio [facility] Work Phone: [...] Phone: 08-30-2007 15:39-0400 Head Circumference 0 cm Afsanehavis Green [facility] Work Phone: 08-30-2007 [...] : Left Arm; Cuff Size: Standard 08-25-2007 09:290400 BSA (Body Surface Area) 2.07 m2 Patricia [...] 09:29-0400 Pulse (Heart Rate) 68 /min Patricia sAh RN [facility] [...] [facility] Work Phone: 08-24-2007 10:12-0400 Head Circumference 0 cm Afsaneh Green [facility] Work Phone: 08-24-2007 10:12-0400 Head Occipital-frontal circumference 0 cm Patricia Ash [...] Neff LPN [facility] Work Phone: 08-22-2007 09:01-0400 Body Temperature 98.8 [degF] Carey Neff LPN [facility] Work Phone: Comment on above: Method: Oral 08-22-2007 09:01-0400 Body weight 94.35 kg Carey Tawanda LOZA [facility] Work Phone: 08-22-2007 09:01-0400 BP Diastolic 80 mm[Hg] Carey Neff LPN [facility] Work Phone: Comment on above: Patient Position: Sitting; Cuff Location : Left Arm; Cuff Size: Standard 08-22-2007 09:01-0400 BP Systolic 120 mm[Hg] Carey Neff LPN [facility] Work Phone: Comment on above: Patient Position: Sitting; Cuff Location : Left Arm; Cuff Size: Standard 08-22-2007 09:01-0400 BSA (Body Surface Area) 2.07 m2 Carey Neff DENIA [facility] Work Phone: 08-22-2007 09:010400 Head Circumference 0 cm Afsaneh Green [facility] Work Phone: 08-22-2007 09:0400 Head Occipital-frontal circumference 0 cm Carey Neff DENIA [facility]; [facility] Work Phone: 08-22-2007 09:0400 Height 171.45 cm Carey Neff [employer] [facility] Work Phone: 08-22-2007 09:01-0400 Pulse (Heart Rate) 70 /min Carey Neff [employer] [facility] Work Phone: Comment on above: Pattern: Regular 08-22-2007 09:-0400 Respiratory Rate 17 /min Carey Neff DENIA [...] 08-21-2007 16:10-0400 Head Circumference 0 cm Afsaneh Nelida [facility] Work Phone: 08-21-2007 16:10-0400 [...] 09:42-0400 Respiratory Rate 16 /min Afsaneh Green [facility] Work Phone: Comment on above: Pattern: Unlabored 08-17-2007 10:57-0400 Body Temperature 97.8 [degF] Patti Ambrocio [facility] Work Phone: Comment on above: Method: Oral 08-17-2007 10:57-0400 Body weight 0 kg Patti Ambrocio [facility] Work Phone: 08-17-2007 10:57-0400 BP Diastolic 76 mm[Hg] Patti Ambrocio [facility] Work Phone: Comment on above: Patient Position: Sitting; Cuff Location : Right Arm; Cuff Size: Standard 08-17-2007 10:57-0400 BP Systolic 124 mm[Hg] Patti Ambrocio [facility] Work Phone: Comment on above: Patient Position: Sitting; Cuff Location : Right Arm; Cuff Size: Standard 08-17-2007 10:57-0400 Head Circumference 0 cm Afsaneh Green [facility] Work Phone: 08-17-2007 10:57-0400 Head Occipital-frontal circumference 0 cm Patti Ambrocio [facility]; [facility] Work Phone: 08-17-2007 10:57-0400 Height 0 cm Patti Ambrocio [facility] Work Phone: 08-17-2007 10:57-0400 Pulse (Heart Rate) 78 /min Patti Ambrocio [facility] Work Phone: Comment on above: Pattern: Regular 08-17-2007 10:57-0400 Respiratory Rate 18 /min Patti Ambrocio [facility] Work Phone: Comment on above: Pattern: Unlabored 08-16-2007 10:09-0400 Body Temperature 98.6 [degF] SOFIE Zamora LPN [facility] Work Phone: Comment on above: Method: Oral 08-16-2007 10:09-0400 Body weight 0 kg SOFIE Zamora LPN [facility] Work Phone: 08-16-2007 10:09-0400 BP Diastolic 78 mm[Hg] SOFIE Zamora LPN [facility] Work Phone: Comment on above: Patient Position: Sitting; Cuff Location : Left Arm; Cuff Size: Standard 08-16-2007 10:09-0400 BP Systolic 122 mm[Hg] SOFIE Zamora LPN [facility] Work Phone: Comment on above: Patient Position: Sitting; Cuff Location : Left Arm; Cuff Size: Standard 08-16-2007 10:09-0400 Head Circumference 0 cm Afsaneh Green [facility] Work Phone: 08-16-2007 10:09-0400 Head Occipital-frontal circumference 0 cm SOFIE Zamora [facility]; [facility] Work Phone: 08-16-2007 10:-0400 Height 0 cm SOFIE Zamora [employer] [facility] Work Phone: 08-16-2007 10:09-0400 Pulse (Heart Rate) 70 /min SOFIE Zamora [facility] Work Phone: Comment on above: Pattern: Regular 08-16-2007 10:09-0400 Respiratory Rate 18 /min SOFIE Zamora LPN [facility] Work Phone: Comment on above: Pattern: Unlabored 08-15-2007 11:26-0400 BMI (Body Mass Index) 32.1 kg/m2 Carey Neff [facility] Work Phone: 08-15-2007 11:26-0400 Body weight 94.35 kg Carey Neff [facility] Work Phone: 08-15-2007 11:26-0400 BP Diastolic 72 mm[Hg] Carey Neff [facility] Work Phone: Comment on above: Patient Position: Sitting; Cuff Location : Left Arm; Cuff Size: Standard 08-15-2007 11:26-0400 BP Systolic 122 mm[Hg] Carey Neff LPN [facility] Work Phone: Comment on above: Patient Position: Sitting; Cuff Location : Left Arm; Cuff Size: Standard 08-15-2007 11:26-0400 BSA (Body Surface Area) 2.07 m2 Carey Neff LPN [facility] Work Phone: 08-15-2007 11:26-0400 Head Circumference 0 cm Afsaneh Green [facility] Work Phone: 08-15-2007 11:26-0400 Head Occipital-frontal circumference 0 cm Carey Neff [employer] [facility]; [facility] Work Phone: 08-15-2007 11:26-0400 Height 171.45 cm Carey Neff LPN [facility] Work Phone: 08-15-2007 11:26-0400 Pulse (Heart Rate) 82 /min Carey Neff LPN [facility] Work Phone: Comment on above: Pattern: Regular 08-15-2007 11:26-0400 Respiratory Rate 17 /min Carey Neff LPN [...] 08-14-2007 16:07-0400 Head Circumference 0 cm Afsaneh Green [facility] Work Phone: 08-14-2007 16:07-0400 [...] 08-11-2007 09:58-0400 Head Circumference 0 cm Afsaneh Renaeon [facility] Work Phone: 08-11-2007 09:58-0400 [...] Work Phone: 08-10-2007 12:19-0400 Height 171.45 cm Ptaricia Ash RN [facility] Work Phone: [...] 09:28-0400 Body Temperature 99.2 [degF] Afsaneh Green [facility] Work Phone: Comment on above: Method: Oral 08-07-2007 09:28-0400 Body weight 0 kg Afsaneh Green [facility] Work Phone: 08-07-2007 09:28-0400 BP [...] 08-06-2007 12:33-0400 BP Diastolic 70 mm[Hg] Afsaneh Nelida DO Work Phone: [facility] Work Phone: Comment on above: Patient Position: Sitting; Cuff Location : Undefined; Cuff Size: Undefined 08-06-2007 12:33-0400 BP Systolic 118 mm[Hg] Afsaneh Nelida DO Work Phone: [facility] Work Phone: Comment on above: Patient Position: Sitting; Cuff Location : Undefined; Cuff Size: Undefined 08-06-2007 12:33-0400 Head Circumference 0 cm Afsaneh Nelida [facility] Work Phone: 08-06-2007 12:33-0400 [...] 09:25-0400 Body weight 0 kg [employer] Work Phone: [facility] Work Phone: 08-05-2007 09:25-0400 BP Diastolic 72 mm[Hg] [employer] Work Phone: [facility] Work Phone: Comment on above: Patient Position: Sitting; Cuff Location : Undefined; Cuff Size: Undefined 08-05-2007 09:25-0400 BP Systolic 122 mm[Hg] [employer] Work Phone: [facility] Work Phone: Comment on above: Patient Position: Sitting; Cuff Location : Undefined; Cuff Size: Undefined 08-05-2007 09:25-0400 Head Circumference 0 cm Afsaneh Green [facility] Work Phone: 08-05-2007 09:25-0400 Head Occipital-frontal circumference 0 cm [employer] Work Phone: [facility]; [facility] Work Phone: 08-05-2007 09:25-0400 Height 0 cm [employer] Work Phone: [facility] Work Phone: [...] 08-03-2007 11:54-0400 Body Temperature 97.1 [degF] [facility] Work Phone: Comment on above: Method: Oral 08-03-2007 11:54-0400 Body weight 0 kg [facility]atticarole [facility] Work Phone: 08-03-2007 11:54-0400 BP Diastolic 70 mm[Hg] [facility] Work Phone: Comment on above: Patient Position: Sitting; Cuff Location : Left Arm; Cuff Size: Standard 08-03-2007 11:54-0400 BP Systolic 122 mm[Hg] Patti [facility] Work Phone: Comment on above: Patient Position: Sitting; Cuff Location : Left Arm; Cuff Size: Standard 08-03-2007 11:54-0400 Head Circumference 0 cm Afsaneh Green [facility] Work Phone: 08-03-2007 11:54-0400 Head Occipital-frontal circumference 0 cm Patti [facility]; [facility] Work Phone: 08-03-2007 11:54-0400 Height 0 cm [facility] Work Phone: 08-03-2007 11:54-0400 Pulse (Heart Rate) 74 /min Patti Ambrocio [facility] Work Phone: Comment on above: Pattern: Regular 08-03-2007 11:54-0400 Respiratory Rate 16 /min Patti Ambrocio [facility] Work Phone: [...] 08-02-2007 12:44-0400 Head Circumference 0 cm Afsaneh Green [facility] Work Phone: 08-02-2007 12:44-0400 Head Occipital-frontal circumference 0 cm Carey Neff LPN [facility]; [facility] Work Phone: 08-02-2007 12:44-0400 Height 171.45 cm Carey Neff LPN [facility] Work Phone: 08-02-2007 12:44-0400 Pulse (Heart Rate) 76 /min Carey Nfef LPN [facility] Work Phone: Comment on above: Pattern: Regular 08-02-2007 12:44-0400 Respiratory Rate 16 /min Carey Neff LPN [facility] Work Phone: Comment on above: Pattern: Unlabored 08-01-2007 11:21-0400 BMI (Body Mass Index) 32.1 kg/m2 Carey Neff LPN [facility] Work Phone: 08-01-2007 11:-0400 Body Temperature 98.4 [degF] Carey Neff LPN [facility] Work Phone: Comment on above: Method: Oral 08-01-2007 11:040 Body weight 94.35 kg Carey Neff LPN [facility] Work Phone: 08-01-2007 11:-0400 BP Diastolic 68 mm[Hg] Carey Neff LPN [facility] Work Phone: Comment on above: Patient Position: Sitting; Cuff Location : Left Arm; Cuff Size: Standard 08-01-2007 11:210400 BP Systolic 120 mm[Hg] Carey Neff LPN [facility] Work Phone: Comment on above: Patient Position: Sitting; Cuff Location : Left Arm; Cuff Size: Standard 08-01-2007 11:0400 BSA (Body Surface Area) 2.07 m2 Carey Neff LPN [facility] Work Phone: 08-01-2007 11:-0400 Head Circumference 0 cm Afsaneh Green [facility] Work Phone: 08-01-2007 11:-0400 Head Occipital-frontal circumference 0 cm Carey Neff [...] 07-25-2007 10:54-0400 Body Temperature 98.4 [degF] Carey Neff LPN [facility] Work Phone: Comment on above: Method: Oral 07-25-2007 10:54-0400 Body weight 94.35 kg Carey Neff LPN [facility] Work Phone: 07-25-2007 10:54-0400 BP Diastolic 68 mm[Hg] Carey Neff LPN [facility] Work Phone: Comment on above: Patient Position: Sitting; Cuff Location : Left Arm; Cuff Size: Standard 07-25-2007 10:54-0400 BP Systolic 116 mm[Hg] Carey Neff DENIA [facility] Work Phone: Comment on above: Patient Position: Sitting; Cuff Location : Left Arm; Cuff Size: Standard 07-25-2007 10:54-0400 BSA (Body Surface Area) 2.07 m2 Carey Neff DENIA [facility] Work Phone: 07-25-2007 10:54-0400 Head Circumference 0 cm Afsaneh Green [facility] Work Phone: 07-25-2007 10:54-0400 Head Occipital-frontal circumference 0 cm Carey Neff DENIA [facility]; [facility] Work Phone: 07-25-2007 10:54-0400 Height 171.45 cm Carey Neff DENIA [facility] Work Phone: 07-25-2007 10:54-0400 Pulse (Heart Rate) 66 /min Carey Neff DENIA [facility] [...] 14:23-0400 Head Circumference 0 cm Afsaneh Green [facility] Work Phone: 07-24-2007 14:23-0400 Head [...] Respiratory Rate 16 /min Patricia Ash RN [facility] Work Phone: Comment on above: Pattern: Unlabored 07-20-2007 09:24-0400 BMI (Body Mass Index) 32.1 kg/m2 [facility] Work Phone: 07-20-2007 09:24-0400 Body Temperature 97.3 [degF] [facility] Work Phone: Comment on above: Method: Oral 07-20-2007 09:24-0400 Body weight 94.35 kg [facility] Work Phone: 07-20-2007 09:24-0400 BP Diastolic 80 mm[Hg] [facility] Work Phone: Comment on above: Patient Position: Sitting; Cuff Location : Left Arm; Cuff Size: Standard 07-20-2007 09:24-0400 BP Systolic 130 mm[Hg] [facility] Work Phone: Comment on above: Patient Position: Sitting; Cuff Location : Left Arm; Cuff Size: Standard 07-20-2007 09:24-0400 BSA (Body Surface Area) 2.07 m2 [facility] Work Phone: 07-20-2007 09:24-0400 Head Circumference 0 cm Afsaneh Green [facility] Work Phone: 07-20-2007 09:24-0400 Head Occipital-frontal circumference 0 cm [facility]; [facility] Work Phone: 07-20-2007 09:24-0400 Height 171.45 cm [facility] Work Phone: 07-20-2007 09:24-0400 Pulse (Heart Rate) 80 /min [facility] Work Phone: Comment on above: Pattern: Regular 07-20-2007 09:24-0400 Respiratory Rate 18 /min [facility] Work Phone: Comment on above: Pattern: Unlabored 07-19-2007 09:29-0400 Body Temperature 97.6 [degF] SOFIE Zamora [facility] Work Phone: Comment on above: Method: Oral 07-19-2007 09:29-0400 Body weight 0 kg SOFIEGEOFFREY Zamora [facility] Work Phone: 07-19-2007 09:29-0400 BP Diastolic 78 mm[Hg] SOFIEGEOFFREY Zamora [facility] Internal Medicine Work Phone: Comment on above: Patient Position: Sitting; Cuff Location : Left Arm; Cuff Size: Standard 07-19-2007 09:29-0400 BP Systolic 116 mm[Hg] SOFIEGEOFFREY Zamora [facility] Medicine Work Phone: Comment on above: Patient Position: Sitting; Cuff Location : Left Arm; Cuff Size: Standard 07-19-2007 09:29-0400 Head Circumference 0 cm Afsaneh Green [facility] Internal Medicine Work Phone: 07-19-2007 09:29-0400 Head Occipital-frontal circumference 0 cm SOFIE Zamora LPN [facility] Internal Medicine; [facility] Work Phone: 07-19-2007 09:29-0400 Height 0 cm SOFIE Zamora [facility] Internal Medicine Work Phone: 07-19-2007 09:29-0400 Pulse (Heart Rate) 70 /min SOFIE Zamora LPN [facility] Internal Medicine Work Phone: Comment on above: Pattern: Regular 07-19-2007 09:29-0400 Respiratory Rate 20 /min SOFIE Zamora LPN [facility] Internal Medicine Work Phone: Comment on above: Pattern: Unlabored 07-18-2007 09:44-0400 Body Temperature 98.8 [degF] SOFIE Zamora LPN [facility] Internal Medicine Work Phone: Comment on above: Method: Oral 07-18-2007 09:44-0400 Body weight 0 kg SOFIE Zamora LPN [facility] Internal Medicine Work Phone: 07-18-2007 09:44-0400 BP Diastolic 74 mm[Hg] SOFIE Zamora [facility] Internal Medicine Work Phone: Comment on above: Patient Position: Sitting; Cuff Location : Left Arm; Cuff Size: Standard 07-18-2007 09:44-0400 BP Systolic 118 mm[Hg] SOFIE Zamora [facility] Internal Medicine Work Phone: Comment on above: Patient Position: Sitting; Cuff Location : Left Arm; Cuff Size: Standard 07-18-2007 09:44-0400 Head Circumference 0 cm Afsaneh Green [facility] Work Phone: 07-18-2007 09:44-0400 Head Occipital-frontal circumference 0 cm SOFIE Zamora [facility] Internal Medicine; [facility] Work Phone: 07-18-2007 09:44-0400 Height 0 cm SOFIE Zamora [employer] [facility] Work Phone: 07-18-2007 09:44-0400 Pulse (Heart Rate) 74 /min SOFIE Zamora [employer] [facility] Internal Medicine Work Phone: Comment on above: Pattern: Regular 07-18-2007 09:44-0400 Respiratory Rate 20 /min SOFIE Zamora LPN [facility] Work Phone: Comment on above: Pattern: Unlabored 07-17-2007 16:03-0400 BMI (Body Mass Index) 32.1 kg/m2 Carey Neff LPN [facility] Work Phone: 07-17-2007 16:03-0400 Body Temperature 98.5 [degF] Carey Neff LPN [facility] [...] 07:54-0400 Body Temperature 98.1 [degF] Leticia Navarro [facility] Internal Medicine Work Phone: Comment on above: Method: Oral 04-28-2007 07:54-0400 Body weight 0 kg Leticia Navarro [facility] Internal Medicine Work Phone: 04-28-2007 07:54-0400 Head Circumference 0 cm Afsaneh Green [facility] Internal Medicine Work Phone: 04-28-2007 07:54-0400 Head Occipital-frontal circumference 0 cm Leticia Navarro [facility] Internal Medicine; [facility] Work Phone: 04-28-2007 07:54-0400 Height 0 cm Leticia Navarro [facility] Internal Medicine Work Phone: 04-28-2007 07:54-0400 Pulse (Heart Rate) 78 /min Leticia Navarro [facility] Internal Medicine Work Phone: Comment on above: Pattern: Regular 04-28-2007 07:54-0400 Respiratory Rate 16 /min Leticia Navarro [facility] Internal Medicine Work Phone: Comment on above: Pattern: Unlabored 04-27-2007 08:41-0400 Body Temperature 98.3 [degF] Patricia Ash [facility] Internal Medicine Work Phone: Comment on above: Method: Oral 04-27-2007 08:41-0400 Body weight 0 kg Patricia Ash [facility] Internal Medicine Work Phone: 04-27-2007 08:41-0400 BP Diastolic 64 mm[Hg] Patricia Ash [facility] Internal Medicine Work Phone: Comment on above: Patient Position: Sitting; Cuff Location : Right Arm; Cuff Size: Standard 04-27-2007 08:41-0400 BP Systolic 118 mm[Hg] Patricia Ash [facility] Internal Medicine Work Phone: Comment on above: Patient Position: Sitting; Cuff Location : Right Arm; Cuff Size: Standard 04-27-2007 08:41-0400 Head Circumference 0 cm Afsaneh Green [facility] Internal Medicine Work Phone: 04-27-2007 08:41-0400 Head Occipital-frontal circumference 0 cm Patricia Ash [facility] Internal Medicine; [facility] Work Phone: 04-27-2007 08:41-0400 Height 0 cm Patricia Ash [facility] Internal Medicine Work Phone: 04-27-2007 08:41-0400 Pulse (Heart Rate) 72 /min Patricia Ash [facility] Internal Medicine Work Phone: Comment on above: Pattern: Regular 04-27-2007 08:41-0400 Respiratory Rate 20 /min Patricia Ash [facility] Internal Medicine Work Phone: Comment on above: Pattern: Unlabored 04-26-2007 08:22-0400 Body Temperature 97.9 [degF] Patricia Ash [facility] Internal Medicine Work Phone: Comment on above: Method: Oral 04-26-2007 08:22-0400 Body weight 0 kg Patricia Ash [facility] Internal Medicine Work Phone: 04-26-2007 08:22-0400 BP Diastolic 70 mm[Hg] Patricia Ash [facility] Internal Medicine Work Phone: Comment on above: Patient Position: Sitting; Cuff Location : Right Arm; Cuff Size: Standard 04-26-2007 08:22-0400 BP Systolic 124 mm[Hg] Patricia Ash [facility] Internal Medicine Work Phone: Comment on above: Patient Position: Sitting; Cuff Location : Right Arm; Cuff Size: Standard 04-26-2007 08:22-0400 Head Circumference 0 cm Afsaneh Green [facility] Internal Medicine Work Phone: 04-26-2007 08:22-0400 Head Occipital-frontal circumference 0 cm Patricia Ash [facility] Internal Medicine; [facility] Work Phone: 04-26-2007 08:22-0400 Height 0 cm Patricia Ash [facility] Internal Medicine Work Phone: 04-26-2007 08:22-0400 Pulse (Heart Rate) 84 /min Patricia Ash [facility] Internal Medicine Work Phone: Comment on above: Pattern: Regular 04-26-2007 08:22-0400 Respiratory Rate 20 /min Patricia Ash [facility] Internal Medicine Work Phone: Comment on above: Pattern: Unlabored 04-25-2007 08:27-0400 Body Temperature 98.1 [degF] Leticia Navarro [facility] Internal Medicine Work Phone: Comment on above: Method: Oral 04-25-2007 08:27-0400 Body weight 0 kg Leticia Navarro [facility] Internal Medicine Work Phone: 04-25-2007 08:27-0400 BP Diastolic 60 mm[Hg] Leticia [facility] Internal Medicine Work Phone: Comment on above: Patient Position: Sitting; Cuff Location : Left Arm; Cuff Size: Standard 04-25-2007 08:27-0400 BP Systolic 124 mm[Hg] Leticia Navarro [facility] Internal Medicine Work Phone: Comment on above: Patient Position: Sitting; Cuff Location : Left Arm; Cuff Size: Standard 04-25-2007 08:27-0400 Head Circumference 0 cm Afsaneh Green [facility] Internal Medicine Work Phone: 04-25-2007 08:27-0400 Head Occipital-frontal circumference 0 cm Leticia Navarro [facility] Internal Medicine; [facility] Work Phone: 04-25-2007 08:27-0400 Height 0 cm Leticia Navarro [facility] Internal Medicine Work Phone: 04-25-2007 08:27-0400 Pulse (Heart Rate) 80 /min Leticia [facility] Internal Medicine Work Phone: Comment on above: Pattern: Regular 04-25-2007 08:27-0400 Respiratory Rate 16 /min Leticia Navarro [facility] Internal Medicine Work Phone: Comment on above: Pattern: Unlabored 04-24-2007 10:39-0400 Body Temperature 97.5 [degF] Leticia Navarro [facility] Internal Medicine Work Phone: Comment on above: Method: Oral 04-24-2007 10:39-0400 Body weight 0 kg Leticia Navarro [facility] Internal Medicine Work Phone: 04-24-2007 10:39-0400 Head Circumference 0 cm Afsaneh Green [facility] Internal Medicine Work Phone: 04-24-2007 10:39-0400 Head Occipital-frontal circumference 0 cm Leticia Navarro [facility] Internal Medicine; [facility] Work Phone: 04-24-2007 10:39-0400 Height 0 cm Leticia Navarro [facility] Internal Medicine Work Phone: 04-24-2007 10:39-0400 Pulse (Heart Rate) 68 /min Leticia Navarro [facility] Work Phone: Comment on above: Pattern: Regular 04-24-2007 10:39-0400 Respiratory Rate 16 /min Leticia Navarro [facility] Work Phone: Comment on [...] 08:18-0400 Body Temperature 97 [degF] Leticia Navarro [facility] Work Phone: Comment on above: Method: Oral 04-21-2007 08:18-0400 Body weight 0 kg Leticia Navarro [facility] Work Phone: 04-21-2007 08:18-0400 BP Diastolic 62 mm[Hg] Leticia Navarro [facility] Internal Medicine Work Phone: Comment on above: Patient Position: Sitting; Cuff Location : Right Arm; Cuff Size: Standard 04-21-2007 08:18-0400 BP Systolic 110 mm[Hg] Leticia Navarro [facility] Internal Medicine Work Phone: Comment on above: Patient Position: Sitting; Cuff Location : Right Arm; Cuff Size: Standard 04-21-2007 08:18-0400 Head Circumference 0 cm Afsaneh Green [facility] Internal Medicine Work Phone: 04-21-2007 08:18-0400 Head Occipital-frontal circumference 0 cm Leticia Navarro [facility] Internal Medicine; [facility] Work Phone: 04-21-2007 08:18-0400 Height 0 cm Leticia Navarro [facility] Internal Medicine Work Phone: 04-21-2007 08:18-0400 Pulse (Heart Rate) 64 /min Leticia Navarro [facility] Internal Medicine Work Phone: Comment on above: Pattern: Regular 04-21-2007 08:18-0400 Respiratory Rate 16 /min Leticia Navarro [facility] Internal Medicine Work Phone: Comment on above: Pattern: Unlabored 04-20-2007 09:16-0400 BMI (Body Mass Index) 32.1 kg/m2 Patricia Ash [facility] Internal Medicine Work Phone: 04-20-2007 09:16-0400 Body Temperature 98.5 [degF] Patricia Nilsa [facility] Internal Medicine Work Phone: Comment on above: Method: Oral 04-20-2007 09:16-0400 Body weight 94.35 kg Patricia Nilsa [facility] Internal Medicine Work Phone: 04-20-2007 09:16-0400 BP Diastolic 60 mm[Hg] Patricia Nilsa [facility] Internal Medicine Work Phone: Comment on above: Patient Position: Sitting; Cuff Location : Left Arm; Cuff Size: Standard 04-20-2007 09:16-0400 BP Systolic 120 mm[Hg] Patricia Nilsa [facility] Internal Medicine Work Phone: Comment on above: Patient Position: Sitting; Cuff Location : Left Arm; Cuff Size: Standard 04-20-2007 09:16-0400 BSA (Body Surface Area) 2.07 m2 Patricia Ash [facility] Internal Medicine Work Phone: 04-20-2007 09:16-0400 Head Circumference 0 cm Afsaneh Green [facility] Internal Medicine Work Phone: 04-20-2007 09:16-0400 Head Occipital-frontal circumference 0 cm Patricia Ash [facility] Internal Medicine; [facility] Work Phone: 04-20-2007 09:16-0400 Height 171.45 cm Patricia Ash [facility] Internal Medicine Work Phone: 04-20-2007 09:16-0400 Pulse (Heart Rate) 64 /min Patricia Ash [facility] Internal Medicine Work Phone: Comment on above: Pattern: Regular 04-20-2007 09:16-0400 Respiratory Rate 16 /min Patricia Ash [facility] Internal Medicine Work Phone: Comment on above: Pattern: Unlabored 04-19-2007 08:13-0400 BMI (Body Mass Index) 33.33 kg/m2 Carey Neff [employer] [facility] Work Phone: 04-19-2007 08:13-0400 Body Temperature 98.6 [degF] Carey Neff [employer] [facility] Work Phone: Comment on above: Method: Oral 04-19-2007 08:130400 Body weight 97.98 kg Carey Neff [employer] [facility] Work Phone: 04-19-2007 08:13-0400 BP Diastolic 74 mm[Hg] Carey Neff [employer] [facility] Work Phone: Comment on above: Patient Position: Sitting; Cuff Location : Left Arm; Cuff Size: Standard 04-19-2007 08:13-0400 BP Systolic 122 mm[Hg] Carey Neff [employer] [facility] Work Phone: Comment on above: Patient Position: Sitting; Cuff Location : Left Arm; Cuff Size: Standard 04-19-2007 08:13-0400 BSA (Body Surface Area) 2.1 m2 Carey Neff LPN [facility] Work Phone: 04-19-2007 08:130400 Head Circumference 0 cm Afsaneh Green [facility] Internal Medicine Work Phone: 04-19-2007 08:13-0400 [...] Respiratory Rate 19 /min Carey Neff LPN [facility] Internal Medicine Work Phone: Comment on above: Pattern: Unlabored 01-31-2007 10:11-0400 Body Temperature 97.6 [degF] SOFIE Zamroa LPN [facility] Work Phone: Comment on above: Method: Oral 01-31-2007 10:0400 Body weight 0 kg SOFIE Zamora LPN [facility] Internal Medicine Work Phone: 01-31-2007 10:11-0400 BP Diastolic 74 mm[Hg] SOFIE Zamora [employer] [facility] Internal Medicine Work Phone: Comment on above: Patient Position: Sitting; Cuff Location : Left Arm; Cuff Size: Standard 01-31-2007 10:11-0400 BP Systolic 124 mm[Hg] SOFIE Zamoar LPN [facility] Work Phone: Comment on above: Patient Position: Sitting; Cuff Location : Left Arm; Cuff Size: Standard 01-31-2007 10:11-0400 Head Circumference 0 cm Afsaneh Green [facility] Internal Medicine Work Phone: 01-31-2007 10:11-0400 Head Occipital-frontal circumference 0 cm SOFIE Zamora [employer] [facility] Internal Medicine; [facility] Work Phone: 01-31-2007 10:11-0400 Height 0 cm SOFIE Zamora LPN [facility] Work Phone: 01-31-2007 10:11-0400 Pulse (Heart Rate) 76 /min SOFIE Zamora LPN [facility] [...] 01-29-2007 09:05-0400 Body weight 0 kg Afsaneh Nelida DO [...] 01-28-2007 09:33-0400 Head Circumference 0 cm Afsaneh Nelida [facility] Work Phone: 01-28-2007 09:33-0400 Head Occipital-frontal circumference 0 cm Afsaneh Nelida DO Work Phone: [facility]; [facility] Work Phone: 01-28-2007 09:33-0400 Height 0 cm Afsaneh Nelida DO Work Phone: [facility] Work Phone: 01-28-2007 09:33-0400 Pulse (Heart Rate) 76 /min Afsaneh Nelida DO Work Phone: [facility] Work Phone: Comment on above: Pattern: Regular 01-28-2007 09:33-0400 Respiratory Rate 10 /min Afsaneh Nelida DO Work Phone: [facility] Work Phone: Comment on above: Pattern: Undefined 01-27-2007 09:41-0400 Body Temperature 97.7 [degF] SOFIE Zamora DENAI [facility] Internal Medicine Work Phone: Comment on above: Method: Oral 01-27-2007 09:41-0400 Body weight 0 kg SOFIE Noah LOZA [facility] Internal Medicine Work Phone: 01-27-2007 09:41-0400 BP Diastolic 80 mm[Hg] SOFIE Noah [employer] [facility] Work Phone: Comment on above: Patient Position: Sitting; Cuff Location : Left Arm; Cuff Size: Standard 01-27-2007 09:41-0400 BP Systolic 120 mm[Hg] SOFIE Zamora [facility] Internal Medicine Work Phone: Comment on above: Patient Position: Sitting; Cuff Location : Left Arm; Cuff Size: Standard 01-27-2007 09:41-0400 Head Circumference 0 [facility] Work Phone: 01-27-2007 09:41-0400 Head Occipital-frontal circumference 0 cm SOFIE Zamora [facility] Internal Medicine; [facility] Work Phone: 01-27-2007 09:41-0400 Height 0 cm SOFIE Zamora [facility] Internal Medicine Work Phone: 01-27-2007 09:41-0400 Pulse (Heart Rate) 80 /min SOFIE Zamora [facility] Internal Medicine Work Phone: Comment on above: Pattern: Regular 01-27-2007 09:41-0400 Respiratory Rate 20 /min SOFIE Zamora [facility] Internal Medicine Work Phone: Comment on above: Pattern: Unlabored 01-26-2007 09:43-0400 Body Temperature 97.7 [degF] SOFIE Zamora [facility] Internal Medicine Work Phone: Comment on above: Method: Oral 01-26-2007 09:43-0400 Body weight 0 kg SOFIE Zamora [facility] Internal Medicine Work Phone: 01-26-2007 09:43-0400 BP Diastolic 82 mm[Hg] SOFIE Zamora [facility] Internal Medicine Work Phone: Comment on above: Patient Position: Sitting; Cuff Location : Left Arm; Cuff Size: Standard 01-26-2007 09:43-0400 BP Systolic 124 mm[Hg] SOFIE Zamora [facility] Internal Medicine Work Phone: Comment on above: Patient Position: Sitting; Cuff Location : Left Arm; Cuff Size: Standard 01-26-2007 09:43-0400 Head Circumference 0 [facility] Work Phone: 01-26-2007 09:43-0400 Head Occipital-frontal circumference 0 cm SOFIE Zamora [employer] [facility]; [facility] Work Phone: 01-26-2007 09:43-0400 Height 0 cm SOFIE Zamora LPN [facility] Work Phone: 01-26-2007 09:43-0400 Pulse (Heart Rate) 88 /min SOFIE Zamora LPN [facility] Work Phone: Comment on above: Pattern: Regular 01-26-2007 09:43-0400 Respiratory Rate 20 /min SOFIE Zamora LPN [facility] Work Phone: Comment on above: Pattern: Unlabored 01-25-2007 09:27-0400 BMI (Body Mass Index) 33.33 kg/m2 Carey Neff DENIA [facility] Work Phone: 01-25-2007 09:27-0400 Body Temperature 97.5 [degF] Carey Neff DENIA [facility] Work Phone: Comment on above: Method: Oral 01-25-2007 09:27-0400 Body weight 97.98 kg Carey Neff DENIA [facility] Work Phone: 01-25-2007 09:27-0400 BP Diastolic 74 mm[Hg] Carey Neff DENIA [facility] Work Phone: Comment on above: Patient Position: Sitting; Cuff Location : Left Arm; Cuff Size: Standard 01-25-2007 09:27-0400 BP Systolic 124 mm[Hg] Carey Neff DENIA [facility] Work Phone: Comment on above: Patient Position: Sitting; Cuff Location : Left Arm; Cuff Size: Standard 01-25-2007 09:27-0400 BSA (Body Surface Area) 2.1 m2 Carey Neff DENIA [facility] Work Phone: 01-25-2007 09:27-0400 Head Circumference 0 cm Afsaneh Green [facility] Work Phone: 01-25-2007 09:27-0400 Head Occipital-frontal circumference 0 cm Carey Tawanda LOZA [facility]; [facility] Work Phone: 01-25-2007 09:27-0400 Height 171.45 cm Carey Neff LPN [facility] [...] Phone: Comment on above: Method: Oral 01-24-2007 09:28-0400 Body weight 97.98 kg Carey Neff LPN [...] Left Arm; Cuff Size: Standard 01-24-2007 09:28-0400 BSA (Body Surface Area) 2.1 m2 Carey Neff LPN [facility] Work Phone: 01-24-2007 09:28-0400 Head Circumference 0 cm Afsaneh Green [facility] Work Phone: 01-24-2007 09:28-0400 Head Occipital-frontal circumference 0 cm Carey Neff [employer] [facility]; [facility] Work Phone: 01-24-2007 09:28-0400 Height 171.45 cm Carey Neff LPN [facility] Work Phone: 01-24-2007 09:28-0400 Pulse (Heart Rate) 62 /min Carey Neff LPN [facility] Work Phone: Comment on above: Pattern: Regular 01-24-2007 09:28-0400 Respiratory Rate 17 /min Carey Neff LPN [...] 2007 11:34-0400 Height 0 cm Afsaneh Green [facility] Work Phone: 2007 11:34-0400 Pulse (Heart Rate) 60 /min Afsaneh Green [facility] Work Phone: Comment on above: Pattern: Regular 2007 11:34-0400 Respiratory Rate 20 /min Afsaneh Green [facility] Internal Medicine Work Phone: Comment on above: Pattern: Undefined 01-12-2007 13:05-0400 BMI (Body Mass Index) 33.33 kg/m2 [facility] Work Phone: 01-12-2007 13:05-0400 Body Temperature 98.6 [degF] Afsaneh Green [facility] Internal Medicine Work Phone: Comment on above: Method: Undefined 01-12-2007 13:05-0400 Body weight 97.98 kg Afsaneh Green [facility] Internal Medicine Work Phone: 01-12-2007 13:05-0400 BP Diastolic 76 mm[Hg] Afsaneh Green [facility] Internal Medicine Work Phone: Comment on above: Patient Position: Sitting; Cuff Location : Left Arm; Cuff Size: Standard 01-12-2007 13:05-0400 BP Systolic 114 mm[Hg] Afsaneh Green [facility] Internal Medicine Work Phone: Comment on above: Patient Position: Sitting; Cuff Location : Left Arm; Cuff Size: Standard 01-12-2007 13:05-0400 BSA (Body Surface Area) 2.1 m2 Afsaneh Green [facility] Internal Medicine Work Phone: 01-12-2007 13:05-0400 Head Circumference 0 cm Afsaneh Green [facility] Internal Medicine Work Phone: 01-12-2007 13:05-0400 Head Occipital-frontal circumference 0 cm Afsaneh Green DO Work Phone: [facility]; [facility] Work Phone: 01-12-2007 13:05-0400 Height 171.45 cm Afsaneh Green [facility] Internal Medicine Work Phone: 01-12-2007 13:05-0400 Pulse (Heart Rate) 72 /min Afsaneh Green [facility] Internal Medicine Work Phone: Comment on above: Pattern: Regular 01-12-2007 13:05-0400 Respiratory Rate 16 /min Afsaneh Green [facility] Internal Medicine Work Phone: Comment on above: Pattern: Undefined Encounters Encounter Date Encounter Type Care Provider Facility Start: 08-23-2025 ambulatory Afsaneh Green Facilit y:[facility] Start: 07-29-2025 End: 07-29-[address] Anders Medina MD -[facility] Work Phone: Start: 07-29-2025 End: 07-29-[address] Afsaneh Green DO Work Phone: -[facility] Start: 07-23-2025 Non-patient / Non-visit Ivette Banda -[facility] Work Phone: Start: 07-23-2025 ambulatory Afsaneh Green Facilit y:[facility] Start: 06-10-2025 End: 06-10-[address] Afsaneh Green DO Work Phone: -Laboratory Start: 06-10-2025 End: 06-10-[address] Afsaneh Green DO -Laboratory Work Phone: Start: 06-10-2025 End: 06-10-2025 ambulatory Afsaneh Green Facility:[facility] Start: 04-17-2025 End: 04-17-[address] Afsaneh Green DO Work Phone: [facility] Work Phone: Start: 04-17-2025 End: 04-17-[address] Rory Sims MD -Laboratory Work Phone: Start: 04-17-2025 End: 04-17-2025 ambulatory Afsaneh Green Facility:[facility] Start: 12-21-2024 End: 12-21-2024 ambulatory Afsaneh Green Facility:[facility] Start: 08-23-2024 End: 08-23-2024 Telephone encounter Estela Day PA-C Work Phone: Pain Management Comment on above: Appointment (Cx) Start: 08-15-2024 End: 08-15-2024 Subsequent hospital visit by physician Macario Rodrigues [facility] Comment on above: Type 2 diabetes antony itus with hyperglycemia (Multi) Start: 08-15-2024 End: 08-15-2024 ambulatory AFSANEH GREEN [facility] Start: 08-09-2024 End: 08-09-2024 Patient encounter procedure [facility] Provider [facility] Start: 07-20-2024 End: 07-20-2024 Telephone encounter Estela Day PA-C Work Phone: Pain Management Comment on above: New POR referral Start: 06-28-2024 End: 06-28-2024 Telephone encounter Estela Dya PA-C Work Phone: Pain Management Comment on above: [employer] PA Start: 06-26-2024 End: 06-26-2024 Refill Rory Schultz MD Work Phone: Pain Management Comment on above: Refill Request Start: 06-25-2024 End: 06-25-2024 Telephone encounter Rory Schultz MD Work Phone: Pain Management Comment on above: Change in POR for BW C Refill Request Start: 06-06-2024 Patient encounter procedure [facility] Provider [facility] Start: 05-25-2024 End: 05-25-2024 ambulatory ESTELA DAY Facility:[id number] Start: 05-25-2024 End: 05-25-2024 Patient encounter procedure [...] End: 05-02-2024 Subsequent hospital visit by physician Ahmet Lyon Work Phone: Radiology Comment on above: Subacute cough [R05. 2] Start: 05-02-2024 End: 05-02-2024 ambulatory DANNA BARRERA Facility:[facility] Start: 05-02-2024 End: 05-02-2024 Office outpatient visit 25 minutes Ashutosh Hennessy BACK TENDER INSULATION BOARD.OIL FIRE SPECIALIST Work Phone: [facility] Comment on above: Subacute cough (Prim arian Dx) Start: 05-02-2024 Telephone encounter Ashutoshavi garcia BACK TENDER INSULATION BOARD.OIL FIRE SPECIALIST Work Phone: [facility] Comment on above: Results Start: [...] Start: 04-04-2024 End: 04-04-2024 ambulatory DAWIT HERNANDEZ Facility:[id number] Start: 03-19-2024 Refill Estela christina PA-C Work [...] Start: 02-07-2024 End: 02-07-2024 ambulatory ESTELA DAY Facility:[id number] Start: 01-20-2024 Refill Estela BASSC Work Phone: Pain Management Comment on above: Refill Request Start: 01-12-2024 Refill Estela PEPE-C Work Phone: Pain Management [...] Start: 12-27-2023 End: 12-27-2023 ambulatory ESTELA DAY Facility:[id number] Start: 11-15-2023 End: 11-15-2023 ambulatory ESTELA DAY Facility:[id number] Start: 10-05-2023 End: 10-05-2023 Patient encounter procedure Estela Day PA-C Work Phone: Pain Management Comment on above: 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); Complex regional pain syndrome type 1 of right lower extremity; Osteoarthritis of right knee, unspecified osteoarthritis type - BWC; Psychogenic pain - BWC Start: 10-05-2023 End: 10-05-2023 ambulatory ESTELA DAY Facility:[id number] Start: 09-26-2023 Refill Estela christina PA-C Work Phone: Pain Management Comment on above: Refill Request Start: 09-16-2023 Telephone encounter Estela BASSC Work Phone: Pain Management Comment on above: Request for OT Eval Start: 07-19-2023 Refill Estela BASSC Work Phone: Pain Management Comment [...] pain - BWC Start: 02-21-2023 Refill Estela PEPE-C Work Phone: Pain Management [...] type - BWC Start: 01-12-2023 Refill Estela PEPE-C Work Phone: Pain Management Comment on above: Refill Request Start: 12-21-2022 Refill Estela PEPE-C Work Phone: Pain Management Comment on above: Refill Request Start: 12-14-2022 End: 12-14-2022 Patient encounter procedure Estela Day PA-C Work Phone: Pain Management Comment on above: 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); Reflex sympathetic dystrophy of right leg; Osteoarthritis of right knee, unspecified osteoarthritis type Start: 11-02-2022 End: 11-02-2022 Patient encounter procedure Estela Day PA-C Work Phone: Pain Management Comment on above: 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); Reflex sympathetic dystrophy of right leg; Osteoarthritis of right knee, unspecified osteoarthritis type Start: 10-26-2022 Refill Estela PEPE-C Work Phone: Pain Management Comment on above: Refill Request Start: 10-18-2022 Refill Estela PEPE-C Work Phone: Pain Management Comment on above: Refill Request Start: 08-24-2022 Refill Estela BASSC Work Phone: Pain Management Comment on above: Refill Request Start: 07-12-2022 Refill Estela christina PA-C Work Phone: Pain Management Comment on above: Refill Request Start: 07-01-2022 Refill Estela PEPE-C Work Phone: Pain Management Comment on above: Refill Request Start: 06-30-2022 Refill Estela PEPE-C Work Phone: Pain Management Comment on above: Refill Request Start: 06-28-2022 End: 06-28-2022 Patient encounter procedure Estela Day PA-C Work Phone: Pain Management Comment on above: 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); Osteoarthritis of right knee, unspecified osteoarthritis type Start: 06-22-2022 Refill Estela christina PA-C Work Phone: Pain Management Comment on above: Refill Request Start: 05-17-2022 Telephone encounter Estela Day PA-C Work Phone: [...] Start: 04-27-2022 Patient encounter procedure [facility] Provider [facility] Department Start: 04-20-2022 Refill Estela christina [...] 03-13-2011 End: 03-13-2011 Patient encounter procedure Afsaneh Nelida [facility] Start: 03-12-2011 End: 03-12-2011 Patient encounter procedure Afsaneh Green [facility] Start: 03-11-2011 End: 03-11-2011 Patient encounter procedure Afsaneh Nelida [facility] Start: 03-10-2011 End: 03-10-2011 Patient encounter procedure Afsaneh Nelida [facility] Start: 07-30-2009 End: 07-30-2009 Patient encounter procedure Afsaneh Nelida [facility] Start: 03-13-2009 End: 03-13-2009 Annotation/Addendum Afsaneh Chakraborty [facility] Start: 03-12-2009 End: 03-12-2009 Office outpatient visit 25 minutes Afsaneh Chakraborty [facility] Start: 03-10-2009 End: 03-12-2009 Patient encounter procedure Afsaneh Green [facility] Start: 07-16-2008 End: 07-16-2008 Historical Summary Afsaneh Green [facility] Start: 03-20-2008 End: 03-20-2008 Patient encounter procedure Afsaneh Chakraborty [facility] Start: 12-21-2007 End: 12-21-2007 Patient encounter procedure Afsaneh Nelida [facility] Start: 11-15-2007 End: 11-15-2007 Patient encounter procedure Afsaneh Green [facility] Start: 10-18-2007 End: 10-18-2007 Patient encounter procedure Afsaneh Green [facility] Start: 10-05-2007 End: 10-05-2007 Patient encounter procedure Afsaneh Green [facility] Start: 09-25-2007 End: 09-25-2007 Patient encounter procedure Afsaneh Green [facility] Start: 09-15-2007 End: 09-15-2007 Patient encounter procedure Afsaneh Green [facility] Start: 09-14-2007 End: 09-14-2007 Patient encounter procedure Afsaneh Green [facility] Start: 09-13-2007 End: 09-13-2007 Patient encounter procedure Afsaneh Green [facility] Start: 09-12-2007 End: 09-13-2007 Office outpatient visit 10 minutes Afsanehavis Green [facility] Start: 09-11-2007 End: 09-11-2007 Patient encounter procedure Afsaneh Green [facility] Start: 09-08-2007 End: 09-08-2007 Patient encounter procedure Afsaneh Green [facility] Start: 09-07-2007 End: 09-07-2007 Patient encounter procedure Afsanehavis Renaeon [facility] Start: 09-06-2007 End: 09-06-2007 Patient encounter procedure Afsaneh Green [facility] Start: 09-05-2007 End: 09-05-2007 Office outpatient visit 15 minutes Afsanehavis Green [facility] Start: 09-04-2007 End: 09-04-2007 Patient encounter procedure Afsaneh Green [facility] Start: 09-01-2007 End: 09-01-2007 Patient encounter procedure Afsaneh Green [facility] Start: 08-31-2007 End: 08-31-2007 Office outpatient visit 15 minutes Afsanehavis Green [facility] Start: 08-30-2007 End: 08-30-2007 Patient encounter procedure Afsaneh Green [facility] Start: 08-29-2007 End: 08-29-2007 Patient encounter procedure Afsaneh Green [facility] Start: 08-28-2007 End: 08-28-2007 Patient encounter procedure Afsaneh Green [facility] Start: 08-25-2007 End: 08-28-2007 Patient encounter procedure Afsaneh Renaeon [facility] Start: 08-24-2007 End: 08-24-2007 Patient encounter procedure Afsanehavis Renaeon [facility] Start: 08-23-2007 End: 08-23-2007 Patient encounter procedure Afsanehavis Renaeon [facility] Start: 08-22-2007 End: 08-22-2007 Patient encounter procedure Afsaneh Green [facility] Start: 08-21-2007 End: 08-21-2007 Patient encounter procedure Afsaneh Green [facility] Start: 08-18-2007 End: 08-18-2007 Patient encounter procedure Afsaneh Green [facility] Start: 08-17-2007 End: 08-17-2007 Patient encounter procedure Afsaneh Green [facility] Start: 08-16-2007 End: 08-16-2007 Patient encounter procedure Afsaneh Green [facility] Start: 08-15-2007 End: 08-15-2007 Patient encounter procedure Afsaneh Renaeon [facility] Start: 08-14-2007 End: 08-14-2007 Patient encounter procedure Afsanehavis Renaeon [facility] Start: 08-11-2007 End: 08-14-2007 Patient encounter procedure Afsaneh Nelida [facility] Start: 08-10-2007 End: 08-10-2007 Patient encounter procedure Afsaneh Nelida [facility] Start: 08-10-2007 End: 08-10-2007 Historical Summary Afsaneh Nelida [facility] Medicine Start: 08-09-2007 End: 08-09-2007 Patient encounter procedure Afsanehavis Renaeon [facility] Start: 08-08-2007 End: 08-08-2007 Patient encounter procedure Afsanehavis Renaeon [facility] Start: 08-07-2007 End: 08-07-2007 Patient encounter procedure Afsaneh Nelida [facility] Start: 08-06-2007 End: 08-06-2007 Patient encounter procedure Afsaneh Nelida [facility] Start: 08-05-2007 End: 08-06-2007 Patient encounter procedure Afsanehavis Green [facility] Start: 08-04-2007 End: 08-04-2007 Patient encounter procedure Afsaneh Nelida [facility] Start: 08-03-2007 End: 08-03-2007 Office outpatient visit 15 minutes Afsaneh Green [facility] Start: 08-02-2007 End: 08-02-2007 Patient encounter procedure Afsaneh Nelida [facility] Start: 08-01-2007 End: 08-01-2007 Patient encounter procedure Afsaneh Nelida [facility] Start: 07-31-2007 End: 07-31-2007 Patient encounter procedure Afsaneh Green [facility] Start: 07-27-2007 End: 07-27-2007 Patient encounter procedure Afsaneh Green [facility] Start: 07-26-2007 End: 07-26-2007 Patient encounter procedure Afsaneh Green [facility] Start: 07-25-2007 End: 07-25-2007 Patient encounter procedure Afsaneh Green [facility] Start: 07-24-2007 End: 07-24-2007 Office outpatient visit 25 minutes Afsaneh Green [facility] Start: 07-20-2007 End: 07-20-2007 Patient encounter procedure Afsaneh Green [facility] Start: 07-19-2007 End: 07-19-2007 Patient encounter procedure Afsaneh Green [facility] Start: 07-18-2007 End: 07-18-2007 Patient encounter procedure Afsaneh Green [facility] Start: 07-17-2007 End: 07-17-2007 Office outpatient visit 25 minutes Afsanheavis Green [facility] Start: 05-25-2007 End: 05-25-2007 Historical Summary Afsanehomari Green [facility] Start: 05-25-2007 End: 05-25-2007 Historical Summary Afsaneh Green [facility] Start: 04-28-2007 End: 04-28-2007 Patient encounter procedure Afsaneh Green [facility] Start: 04-27-2007 End: 04-28-2007 Patient encounter procedure Afsaneh Green [facility] Start: 04-26-2007 End: 04-26-2007 Patient encounter procedure Afsaneh Green [facility] Start: 04-25-2007 End: 04-25-2007 Patient encounter procedure Afsaneh Green [facility] Start: 04-24-2007 End: 04-24-2007 Patient encounter procedure Afsaneh Green [facility] Start: 04-23-2007 End: 04-23-2007 Patient encounter procedure Afsaneh Green [facility] Start: 04-22-2007 End: 04-22-2007 Patient encounter procedure Afsaneh Green [facility] Start: 04-21-2007 End: 04-21-2007 Patient encounter procedure Afsaneh Green [facility] Start: 04-20-2007 End: 04-20-2007 Patient encounter procedure Afsaneh Green [facility] Start: 04-19-2007 End: 04-19-2007 Patient encounter procedure Afsaneh Green [facility] Start: 01-31-2007 End: 01-31-2007 Patient encounter procedure Afsaneh Green [facility] Start: 01-30-2007 End: 01-30-2007 Patient encounter procedure Afsaneh Chakraborty [facility] Start: 01-29-2007 End: 01-29-2007 Patient encounter procedure Afsaneh Green [facility] Start: 01-28-2007 End: 01-28-2007 Patient encounter procedure Afsaneh Green [facility] Start: 01-27-2007 End: 01-27-2007 Patient encounter procedure Afsaneh Green [facility] Start: 01-26-2007 End: 01-26-2007 Office outpatient visit 15 minutes Afsaneh Chakraborty [facility] Start: 01-25-2007 End: 01-25-2007 Patient encounter procedure Afsaneh Chakraborty [facility] Start: 01-24-2007 End: 01-24-2007 Patient encounter procedure Afsaneh Green [facility] Start: 2007 End: 01-24-2007 Patient encounter procedure Afsaneh Green [facility] Start: 01-12-2007 End: 01-12-2007 Patient encounter procedure Afsaneh Green [facility] Physical examination Tetryl Blender Operator [facility]; [facility] Work Phone: Procedures Date Procedure Procedure Detail Performing Clinician Start: 06-10-[address] Afsaneh Green DO Work Phone: Comment on above: Test Ordered: [id number] Apolipoprotein BApo lipoprotein B 73 mg/dL BN Reference Range: <90 Desirable < 90 Borderline High 90 - 99 High 100 - 130 Very High >130 ASCVD RISK THERAPEUTIC TARGET CATEGORY APO B (mg/dL) Very High Risk <80 (if extreme risk <70) High Risk <90 Moderate Risk <90Performed at: [facility] [id number] Director: Jay Clinton MD, Phone: [phone] at: [facility] [id number] Director: Catrachito Armas PhD, Phone: [phone] Start: 06-10-2025 Urine microalbumin/creatinine ratio measurement Dr. Afsaneh Green DO Work Phone: Start: 06-10-2025 Urnls dip stick/tablet reagent auto microscopy Dr. Afsaneh Green DO Work Phone: Start: 06-10-2025 Vitamin D, 25-hydroxy measurement Dr. Afsaneh Green DO Work Phone: Comment on above: Vitamin D StatusDeficiency: <20 ng/mL (5 0nmol/L)Insufficiency: 20-30 ng/mL (50-75 nmol/L)Sufficiency: 30-100 ng/mL (75-250 nmol/L)Toxicity: >100 ng/mL (>250 nmol/L) Start: 04-17-2025 Methadone measurement, urine Dr. Sofia Green DO Work Phone: Start: 04-17-[address] Afsaneh Green DO Work Phone: Comment on above: Test Ordered: [id number] Tapentadol, UrineTa pentadol, Urine Note: ng/mL UI See Final Results Reference Range: Llakkw=155Ritb test was developed and its performance characteristicsdetermined by [employer] It has not been cleared orapproved by the Food and Drug Administration.Tapentadol Positive [A ] UI Reference Range: Leqrxf=619Ahvbihmybh Conf, MS, UR >57757 ng/mL UI Reference Range: Minnpw=434Cpskfktytb detected; this finding is consistent with use ofmedication Nucynta, or generic formulations.Performed at: [facility] [id number] [facility], [place], [place] [id number] Director: Nicolas Griffin PhD, Phone: [phone] at: [facility] [place], [place] [id number] Director: Catrachito Armas PhD, Phone: [phone] Start: 05-02-2024 Radiologic exam chest 2 views Ashutosh Hennessy BACK TENDER INSULATION BOARD.OIL FIRE SPECIALIST Work Phone: Start: 08-27-2015 End: 08-27-2015 Echocardiogram Complete Comments: See Note; NOTES: [facility] Cardiovascular Services [address] [place] [address] Echo Complete 08/27/15 1307 MR#: [id number] Acct: [id number] Name: CONG HARRISON Rep #: [id number] : 1965 50 From: García Burger MD Attending Dr: OUT OF TOWN DOCTOR Status: REG CLI Ordering Dr: TIM CURRAN Date: 08/27/15 Location: [facility] Sex: M C Admitted: Procedure This [...] Tim Curran Referring Physician: OTD Performed By: Josep, Michelle, RDCS, RVT 08/27/15 1418 Date García Burger MD CC: Afsaneh Green DO; TIM BINA Date Dictated: 08/27/15 1307 Date Transcribed: 08/27/15 1418 Specimen Transporter: Signed Afsaneh Green Start: 07-30-2015 End: 07-30-2015 Emergency Department Summary Comments: See Note; NOTES: [facility] Medical Records Department [address] [place] [address] Emergency Department Summary MR#: [id number] Acct: [id number] Name: CONG HARRISON Rep #: [id number] : 1965 50 From: Alvino Mcpherson MD PCP: Afsaneh Green DO Status: [facility] ER DATE OF SERVICE: 07/27/2015 CHIEF COMPLAINT: Kicks [...] Dr. Alvino Mcpherson MD T: NTS JOB: [id number] 07/30/15220 <Electronically signed by Alvino Mcpherson MD> Date Alvino Mcpherson MD Cosigner Signature (If Indicated): Date CC: Afsaneh Green DO Date Dictated: 07/27/152146 Date Transcribed: 07/27/152146 Specimen Transporter: Signed Afsaneh Green Start: 07-27-2015 End: 07-27-2015 Discharge Instruction Comments: See Note; NOTES: [facility] Medical Records Department [address] [place] [address] Discharge Instruction 07/27/152149 MR#: [id number] Acct: [id number] Name: CONG HARRISON Rep #: [id number] : 1965 50 From: Alvino Mcpherson MD PCP: Afsaneh Green DO Status: [facility] ER ED Disposition - Plan for ED Patient: Chief Complaint: Trauma Instructions: Contusions (Bruises) What to do if you have Problems For any increased pain, shortness of breath, bleeding, nausea or vomiting, chest pain, or any unexpected problems, contact your doctor. Call [facility] ([phone]) or report to the closest Emergency Room. Call 911 if necessary. 07/27/15 5340 <Electronically signed by Alvino Mcpherson MD> Date Alvino Mcpherson MD Cosigner Signature (If Indicated): Date CC: Afsaneh Coronado Start: 07-27-2015 End: 07-28-2015 Elbow min 3 Views Comments: See Note; NOTES: [facility] Imaging Services [address] [place] [address] Radiology Report MR#: [id number] Acct: [id number] Name: CONG HARRISON Rep #: [id number] : 1965 M 50 From: Siddharth Choudhary MD PCP: Afsaneh Green DO Status: DEP ER Study: Elbow min 3 Views Date of Exam: 07/27/15 Exam# [id number] Ordering Dr: Alvino Mcpherson MD STUDY: X-RAY [...] Siddharth Choudhary MD at 8:37 EDT Tel [phone], Service support [phone], RAD/Elbow min 3 Views IMPRESSION: The spur is seen at the level of the olecranon process of the proximal ulna. Electronically Signed: Siddharth Choudhary MD at 8:37 EDT Tel [phone], Service support [phone], CC: Alvino Mcpherson MD; Afsaneh Green DO Specimen Transporter: Signed Afsaneh Green Start: 07-27-2015 End: 07-28-2015 Wrist min 3 Views Comments: See Note; NOTES: [facility] Imaging Services [address] [place] [address] Radiology Report MR#: [id number] Acct: [id number] Name: CONG HARRISON Rep #: [id number] : 1965 M 50 From: Siddharth Choudhary MD PCP: Afsaneh Green DO Status: DEP ER Study: Wrist min 3 Views Date of Exam: 07/27/15 Exam# [id number] Ordering Dr: Alvino Mcpherson MD STUDY: X-RAY [...] Siddharth Choudhary MD at 8:38 EDT Tel [phone], Service support [phone], RAD/Wrist min 3 Views IMPRESSION: Normal x-ray examination of the wrist. Electronically Signed: Siddharth Choudhary MD at 8:38 EDT Tel [phone], Service support [phone], CC: Alvino Mcpherson MD; Afsaneh Green DO Specimen Transporter: Signed Afsaneh Green Start: 11-05-2014 End: 11-05-2014 Emergency Department Summary Comments: See Note; NOTES: [facility] Medical Records Department [address] [place] [address] Emergency Department Summary MR#: [id number] Acct: [id number] Name: CONG HARRISON Rep #: [id number] : 1965 49 From: Estela Romero MD PCP: Afsaneh Green DO Status: [facility] ER DATE OF SERVICE: 10/31/2014 METHOD OF [...] MD Scotty Belcher C: Afsaneh Mann T: [facility] JOB: [id number] 11/05/14 0803 <Electronically signed by Estela Romero MD> Date Estela Romero MD CC: Afsaneh Green DO; Estela Pickett Date Dictated: 10/31/14 1331 Date Transcribed: 10/31/141330 Specimen Transporter: Signed Afsaneh Green Start: 10-31-2014 End: 10-31-2014 Discharge Instruction Comments: See Note; NOTES: [facility] Medical Records Department [address] [place] [address] Discharge Instruction 10/31/14 1328 MR#: [id number] Acct: [id number] Name: CONG HARRISON Rep #: [id number] : 1965 49 From: Estela Romero MD [...] any unexpected problems, contact your doctor. Call [facility] ) or report to the closest Emergency Room. Call 911 if necessary. 10/31/14 1329 <Electronically signed by Estela Romero MD> Date Estela Romero MD Cosigner Signature (If Indicated): Date __ CC: Afsaneh Coronado Start: 10-31-2014 End: 11-01-2014 Knee 4 or More Views Comments: See Note; NOTES: [facility] Imaging Services [address] [place] [address] Radiology Report MR#: [id number] Acct: [id number] Name: CONG HARRISON Rep #: [id number] : 1965 M 49 From: Susan Shaw MD PCP: Afsaneh Green DO Status: DEP ER Study: Knee 4 or More Views Date of Exam: 10/31/14 Exam# [id number] Ordering Dr: Estela Romero MD STUDY: X-RAY [...] at 11:20 EST Tel , Service support [phone], CC: Afsaneh Green DO; Estela Romero MD Specimen Transporter: Signed Afsaneh Green Plan of Treatment Date Care Activity Detail Author Start: 04-07-2028 DTaP/Tdap/Td Vaccine s (2 - Td or Tdap) DTaP/Tdap/Td Vaccines (2 - Td or Tdap) [facility] Start: 04-07-2028 Urine microalbumin profile DTaP,Tdap,Td Vaccine (2 - Td or Tdap) [facility] Start: 11-18-2025 Serum immunofixation [facility] Start: 11-18-2025 [facility] Start: 04-17-2025 Procedure [facility] Start: 08-28-2024 End: 08-28-2024 Patient encounter procedure 08/28/2024 8:30 AM EDT Office Visit Pain Management [address] [place] [address] Estela Day, PA-C [address] [facility] [place] [address] FU Pain Management Comment on above: FU Start: 07-01-2024 Covid-19 Vaccine ( season) Covid-19 Vaccine ( season) [facility] Start: 07-01-2024 Covid-19 Vaccine ( season) Covid-19 Vaccine ( season) [facility] Start: 07-01-2024 Influenza vaccination Influenza Vacc ine (#1) [facility] Start: 05-25-2024 End: 05-25-2024 Patient encounter procedure 05/25/2024 8:00 AM EDT Office Visit Pain Management [address] [place] [address] Estela Day, PA-C [address] [place] [address] FOLLOW UP Pain Management Comment on above: FOLLOW UP Start: 04-04-2024 End: 07-04-2024 TOXASSURE FLEX 23, URINE TOXASSURE FLEX 23, URINE Lab Routine Complex regional pain syndrome type 1 of left lower extremity - [facility] Expected: 04/04/2024, Expires: 07/04/2024 [facility] Work Phone: Comment on above: Expected: 04/04/2024 , Expires: 07/04/2024 Start: 04-04-2024 End: 04-04-2024 Patient encounter procedure 04/04/2024 8:15 AM EDT Office Visit Pain Management [address] [place] [address] Dawit Hernandez MD [address] [place] [address] FOLLOW UP Pain Management Comment on above: FOLLOW UP Start: 10-31-2023 Behavioral Health Screening Behavioral Health Screening [facility] Start: 10-31-2023 Depression Assessment Depression Ass essment [facility] Start: 10-05-2023 End: 01-04-2024 TOXASSURE FLEX 23, URINE TOXASSURE FLEX 23, URINE Lab Routine Complex regional pain syndrome type 1 of left lower extremity Complex regional pain syndrome type 1 of right lower extremity Expected: 10/05/2023, Expires: 01/04/2024 [facility] Work Phone: Comment on above: Expected: 10/05/2023 , Expires: 01/04/2024 Start: 07-01-2023 Covid-19 Vaccine ( season) Covid-19 Vaccine () [facility] Start: 07-01-2023 Influenza vaccination C [facility] Start: 04-19-2023 End: 04-19-2024 ECG COMPLETE ECG COMPLETE ECG Routine Drug therapy Expected: 04/19/2023, Expires: 04/19/2024 [facility] Work Phone: Comment on above: Expected: 04/19/2023 , Expires: 04/19/2024 Start: 03-09-2023 End: 05-09-2023 TOXASSURE FLEX 23, URINE TOXASSURE FLEX 23, URINE Lab Routine Expected: 03/09/2023, Expires: 05/09/2023 [facility] Work Phone: Comment on above: Expected: 03/09/2023 , Expires: 05/09/2023 Start: 10-31-2022 DEPRESSION ASSESSMENT DEPRESSION ASS ESSMENT [facility] Start: 07-01-2022 Influenza vaccination C [facility] Start: 01-07-2022 COVID-19 VACCINE (3 - Booster for Omar series) COVID-19 VACCINE (3 - Booster for Omar series) [facility] Start: 11-04-2021 COVID-19 VACCINE (3 - Booster for Omar series) COVID-19 VACCINE (3 - Booster for Omar series) [facility] Start: 10-31-2021 DEPRESSION ASSESSMENT DEPRESSION ASS ESSMENT [facility] Start: 07-01-2021 Influenza vaccination INFLUENZA (#1) [facility] Start: 2021 PROSTATE CANCER SCREENING DISCUSSION PROSTATE CANCER SCREENING DISCUSSION [facility] Start: 2021 Prostate specific antigen measurement Prostate Cancer Screening Discussion [facility] Start: 01-24-2016 SHINGRIX VACCINE (1 of 2) SHINGRIX VACCINE (1 of 2) [facility] Start: 01-24-2016 Zoster Vaccines (1 of 2) Zoste r Vaccines (1 of 2) [facility] Start: 07-19-2011 Provider Instruction s for [...] Start: 2011 COLOGUARD (FIT-DNA) COLOGUARD (FIT-D NA) [facility] Start: 2011 Colonoscopy COLONOSCOPY [facility] Start: 2011 COLORECTAL CANCER SCREENING COLORECTAL CANCER SCREENING [facility] Start: [address] COLONOGRAPHY [facility] Start: 2011 DIABETES SCREEN DIABETES SCREEN [facility] Start: 2011 Diabetes Screening Diabetes Screenin g [facility] Start: 2011 FECAL OCCULT BLOOD FECAL OCCULT BLOO D [facility] Start: 2011 Screening for malign ant neoplasm of colon [facility] Start: 2011 SIGMOIDOSCOPY SIGMOIDOSCOPY [facility] Start: 03-13-2009 Urnls dip stick/tabl et rgnt non-auto w/o micrscp Urinalysis, Office (16128) [facility] Work Phone: Start: 03-10-2009 Comprehensive metabo lic panel METABOLIC PANEL, COMPREHENSIVE (33726) [facility] Work Phone: Start: 03-10-2009 Blood count manual c ell count each CBC WITH MANUAL DIFF (76156) [facility] Work Phone: Start: 03-10-2009 Cul bact xcpt urine blood/stool aerobic isol COLIN CULTURE-OTHER (56018) [facility] Work Phone: Start: 03-10-2009 Cul bact stool aerob ic isol salmonella&shigell COLIN CULTURE-STOOL (15561) [facility] Work Phone: Start: 03-10-2009 Leukocyte assmt feca l qual/semiquantitative LEUKOCYTE COUNT, FECAL (87653) [facility] Work Phone: Start: 03-10-2009 Ova&parasites direct smears concentration & id OVA & PARASITE DIR SMEAR (36495) [facility] Work Phone: Start: 03-10-2009 Culture bacterial an y source anaerobic iso&id [facility] Work Phone: Start: 12-21-2007 Lipid panel LIPID PANEL (35714) [facility] Work Phone: Comment [...] 08-24-2007 Blood count complete automated CBC (Auto) (67882) [facility] Work Phone: Comment on above: dx drug monitor Start: 08-24-2007 Assay of creatine Creatine (99015) [facility]; [facility] Work Phone: Comment on above: dx drug monitor Start: 08-24-2007 Creatinine [Mass/Vol] Creatine (8254 0) [facility] Work Phone: Comment on above: dx drug monitor Start: 08-16-2007 Provider Instruction s for Treatment FOLLOW UP TOMORROW [facility] Work Phone: Start: 08-14-2007 Glucose [Mass/Vol] Glucose, PP /2 Hour (79198) [facility] Work Phone: Start: 08-14-2007 Glucose quantitative blood xcpt reagent strip Glucose, PP/2 Hour (50369) [facility]; [facility] Work [...] y source anaerobic iso&id BACT CULTURE ANY-ANAEROBIC (50307) [facility] Work Phone: Start: 07-24-2007 Cul bact xcpt urine blood/stool aerobic isol COLIN CULTURE-OTHER (81387) [facility] Work Phone: Start: 07-18-2007 Provider Instruction s for Treatment FOLLOW UP TOMORROW [facility] Work Phone: Start: 01-28-2007 Nursing Care Education IV [facility] Work Phone: Start: 2001 Lipid 1996 panel - S ethan or Plasma Lipid Screening [facility] Start: 2001 Lipid panel Lipid Screening [facility] Start: 2001 LIPID SCREEN LIPID SCREEN [facility] Start: 1985 Hepatitis B Vaccine (1 of 3 - 19+ 3-dose series) Hepatitis B Vaccine (1 of 3 - 19+ 3-dose series) [facility] Start: 1985 Hepatitis B Vaccines (1 of 3 - 19+ 3-dose series) Hepatitis B Vaccines (1 of 3 - 19+ 3-dose series) [facility] Start: 1985 Urine microalbumin profile [facility] Start: 1985 Urine screening for protein Diabetes: Urine Protein Screening [facility] Start: 01-24-1984 Anxiety Screening Anxiety Screening [facility] Start: 01-24-1984 Depression Screening Depression Scre ening [facility] Start: 01-24-1984 HEPATITIS C SCREENING HEPATITIS C [facility] Start: 01-24-1984 Hepatitis C screening Hepatitis C [facility] Start: 01-24-1984 HIV SCREENING HIV SCREENING [facility] Start: 01-24-1984 HIV screening HIV Screening [facility] Start: 1978 Adult depression screening assessment DEPRESSION SCREENING [facility] Start: 01-24-1976 Glaucoma screening Diabetes: R etinopathy Screening [facility] Start: 01-24-1972 Pneumococcal Vaccine : Pediatrics (0 to 5 Years) and At-Risk Patients (6 to 64 Years) (1 of 2 - PCV) Pneumococcal Vaccine: Pediatrics (0 to 5 Years) and At-Risk Patients (6 to 64 Years) (1 of 2 - PCV) [facility] Start: 1971 COVID-19 VACCINE (#1) COVID-19 VACCI NE (#1) [facility] Start: 1971 COVID-19 VACCINE (1) COVID-19 VACCIN E (1) [facility] Start: 1967 MMR Vaccines (1 of 1 - Standard series) MMR Vaccines (1 of 1 - Standard series) [facility] Start: 1966 Hemoglobin A1c measurement Diabetes: Hemoglobin A1C [facility] Start: 1966 HEPATITIS B (1 of 3 - 3-dose series) HEPATITIS B (1 of 3 - 3-dose series) [facility] Start: 1966 Hepatitis B Vaccine (1 of 3 - 3-dose series) Hepatitis B Vaccine (1 of 3 - 3-dose series) [facility] Start: 1966 HIV [facility] Start: 1966 Lipid panel Lipid Panel [facility] Start: 1966 Screening for malign ant neoplasm of colon [facility] Start: 1966 Yearly Adult Physical Yearly Adult P hysical [facility] CBC W Auto Different ial panel - Blood [facility] Comprehensive metabo lic 2000 panel - Serum or Plasma [facility] End: 08-15-2024 CT for calcium scoring WO contrast and CTA W contrast IV Heart and coronary arteries [facility] Service Area Work Phone: Comment on above: Once for 1 Occurrenc es starting 08/15/2024 until 08/15/2024 Lactate dehydrogenas e measurement [facility] Work Phone: [facility] [...] Phone: [facility] Work Phone: [facility] Immunizations Immunization Date Immunization Notes Care Provider Merlin rodriguez 09-06-2023 influenza virus vaccine, unspecified formulation Ashutosh Hennessy BACK TENDER INSULATION BOARD.OIL FIRE SPECIALIST Work Phone: [facility] 08-18-2022 influenza virus vaccine, unspecified formulation Estela Day PA-C Work Phone: [facility] Payers Date Payer Category Payer Self-pay [id number] 2023 Managed Care (Private) [facility] [id number] 2023 Private Health Insurance [id number] 2021 Private Health Insurance [id number] 2011 Private Health Insurance [employer] A ETNA CHOICE POS II [id number] 2011-Present [phone] [address] [place] [address] POS [id number] [facility] AULTCOMP O [id number] 2004-Present [facility] [id number] 2004 Unknown [id number] 1966 Unknown [id number] Private Health Insurance [id number] Unknown [id number] Unknown [id number] Unknown [id number] Unknown [id number] Unknown [id number] Unknown [id number] Unknown 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 Tobacco use: Tobacco use: [facility] Work Phone: Tobacco use: Tobacco use: [facility]; [facility] Work Phone: Start: 11-09-2016 End: 07-29-2025 Tobacco smoking status NHIS Never smoked tobacco [facility] Work Phone: Start: 11-09-2016 End: 12-14-2022 Tobacco use and exposure Smokeless tobacco non-user [facility] Work Phone: Start: 1965 Sex Assigned At Not on file [facility] Start: 03-29-2022 End: 02-07-2024 Alcohol intake Ex-drinker (finding) [facility] Start: 03-29-2022 History SDOH Alcohol Frequency 1 [facility] Start: 04-10-2022 End: 08-15-2024 Exposure to SARS-CoV-2 (event) Not sure [facility] Start: 04-20-2023 End: 02-07-2024 Tobacco use panel [facility] National Score (1-100), lower number is lower risk 54 [facility] Start: 1965 Sex Assigned At Male W [facility] Tobacco smoking status NHIS Tobacco smoking consumption unknown [facility] Work Phone: Clinical Notes 04-20-2022 to 07-29-2025 Telephone Encounter - Tova Juarez LPN - 08/23/2024 9:15 AM EDTTelephone Encounter - Tova Juarez LPN - 08/23/2024 9:15 AM EDTTelephone Encounter - Tova Juarez LPN - 07/20/2024 2:28 PM EDT Note Date & Type Note Facility 07-29-2025 Progress note [facility] 08-23-2024 Miscellaneous Notes Stated "I already had my appt with Dr Negron, so I am cx the FU for next week at ". Confirmed that we will do that. documented in this encounter [facility] 08-23-2024 Telephone encounter Note Stated "I already had my appt with Dr Negron, so I am cx the FU for next week at ". Confirmed that we will do that. [facility] 07-20-2024 Telephone encounter Note Spoke with pt re: need for new Pain Management Dr that will provide POR status and stated he would like to go to Dr. Roblero - [facility] [place]. Referral created and sent to [facility] ([place]) team. [facility] 07-20-2024 Miscellaneous Notes Spoke with pt re: need for new Pain Management Dr that will provide POR status and stated he would like to go to Dr. Roblero - [facility] [place] [facility] [place]. Referral created and sent to [facility] ([place]) team. documented in this encounter [facility] 06-28-2024 Telephone encounter Note [employer] approved, pt and pharmacy were informed. [facility] 06-28-2024 Miscellaneous Notes [employer] approved, pt and pharmacy were informed. Renewal PA for movantik submitted on CMM to [facility] . documented in this encounter [facility] 06-28-2024 Telephone encounter Note Renewal PA for movantik submitted on CMM to [facility] . [facility] 06-26-2024 Telephone encounter Note Script went to the wrong pharmacy, updated script attached, please review and send Josette Wong RN June 26, 2024 9:24 AM [facility] 06-26-2024 Miscellaneous Notes Script went to the wrong pharmacy, updated script attached, please review and send Josette Wong RN June 26, 2024 9:24 AM documented in this encounter [facility] 06-25-2024 Telephone encounter Note LM on VM regarding form being mailed out to change POR with [facility]. Fred Jean RN June 25, 2024 11:13 AM [facility] 06-25-2024 Miscellaneous Notes LM on VM regarding form being mailed out to change POR with [facility]. Fred Jean RN June 25, 2024 11:13 AM documented in this encounter [facility] 06-25-2024 Telephone encounter Note Patient phones [...] UDS: Opioid/non opioid Agreement signed 11/15/23 [facility] DX 01/25/23 03/09/2023 change nucynta to er 250 mg bid due 03/23/2023 04/11/24- Outside approved (Court approved), [facility] No results found for: "SUMM", PREGAB No results found for: "UQNOTE", "OPIATEPNMGT", "DRUGSCRPAIN" Urine Panel: No results found for: "UQCANN", "UQBNZL", "SBQ3CDE", "UQAMPH", "UQMAMP", "UQBUPRE", "UQNORBUP", "UQMTHD", "UQEDDP", "UQTRAM", "UQDTRM", "UQFNTL", "UQNFTL", "UQCODE", "UQMORP", "UQDCDN", "UQHCOD", "UQOXYC", "UQHMOR", "UQOXYM", "UQCREA", "UQPH", "UQSPGR", "UQOXID", "UQSPQ" @FLOW([id number])@ No results found for: "SUMM" Summary Report (Summary) Date Value Ref Range Status 08/11/2022 FINAL Final Comment: ==== TOXASSURE COMP DRUG ANALYSIS,UR ==== Test Result Flag Units Drug Present and Declared for Prescription Verification Tapentadol >19611 EXPECTED ng/mg creat Source of tapentadol is [...] Please review and advise. Pam Nguyen RN [facility] 06-25-2024 Miscellaneous Notes Patient phones requesting [...] 250 mg bid due 03/23/2023 04/11/24- Outside WC approved (Court approved), per Selene, may get through [employer] [facility] No results found for: "SUMM", PREGAB No results found for: "UQNOTE", "OPIATEPNMGT", "DRUGSCRPAIN" Urine Panel: No results found for: "UQCANN", "UQBNZL", "WGY1RTM", "UQAMPH", "UQMAMP", "UQBUPRE", "UQNORBUP", "UQMTHD", "UQEDDP", "UQTRAM", "UQDTRM", "UQFNTL", "UQNFTL", "UQCODE", "UQMORP", "UQDCDN", "UQHCOD", "UQOXYC", "UQHMOR", "UQOXYM", "UQCREA", "UQPH", "UQSPGR", "UQOXID", "UQSPQ" @FLOW([id number])@ No results found for: "SUMM" Summary Report (Summary) Date Value Ref Range Status 08/11/2022 FINAL Final Comment: ==== TOXASSURE COMP DRUG ANALYSIS,UR ==== Test Result Flag Units Drug Present and Declared for Prescription Verification Tapentadol >43579 EXPECTED ng/mg creat Source of tapentadol is [...] Pam Nguyen RN documented in this encounter [facility] 05-25-2024 Instructions Estela Day PA-C - [...] if you need to have this reprogrammed [phone]. He will continue with core strengthening and range of motion exercises. Follow-up in the office in 3 months Supervising Physiciain - Dr. Rory Schultz MD documented in this encounter [facility] 05-25-2024 Note HNO ID: [id number] Author: ESTELA DAY PA-C Service: ? Author Type: Physician District Plant Supervisor Type: Progress Notes Filed: 05/25/2024 08:26 Note Text: This note was created using [employer] ([employer]) Coriter. Subjective Cong Harrison is a 59 year old male. The patient primarily being seen for left leg pain - [facility] Patient was last seen on: 04/04/24 At [...] if you need to have this reprogrammed [phone]. He will continue with core strengthening and range of motion exercises. Follow-up in the office in 3 months - TAPENTADOL 100 MG TABLET (Two stable chronic illnesses/prescription drug management) 2. Complex regional pain syndrome type 1 of right lower extremity - [facility] - ICD9: 337.22, ICD10: G90.521 3. Osteoarthritis of right knee, unspecified osteoarthritis type - [facility] - ICD9: 715.96, ICD10: M17.11 4. Psychogenic pain - [facility] - ICD9: 307.80, (more content not included)... [facility] 05-25-2024 History of Presen t illness Narrative This note was created using [employer] ([employer] Coriter. Subjective Cong Harrison is a 59 year old male. The patient primarily being seen for left leg pain - [facility] Patient was last seen on: 04/04/24 At [...] 1 of left lower extremity - [facility] - ICD9: 337.22, ICD10: G90.522 (primary diagnosis) [...] if you need to have this reprogrammed [phone]. He will continue with core strengthening and range of motion exercises. Follow-up in the office in 3 months - TAPENTADOL 100 MG TABLET (Two stable chronic illnesses/prescription drug management) 2. Complex regional pain syndrome type 1 of right lower extremity - [facility] - ICD9: 337.22, ICD10: G90.521 3. Osteoarthritis of right knee, unspecified osteoarthritis type - [facility] - ICD9: 715.96, ICD10: M17.11 4. Psychogenic pain - [facility] - ICD9: 307.80, ICD10: F45.42 Estela Day PA-C documented in this encounter [facility] 05-25-2024 Nurse Note Nucynta this am/ Cymbalta this am/ Prilosec this am/ Hytrin last pm/ [employer] am Meds help pain Denies side effects SCS, 23/05-helpful Last uds-04/04/24 [facility] 05-25-2024 Nurse Note Nucynta this am/ Cymbalta this am/ Prilosec this am/ Hytrin last pm/ Mov[employer]ik am Meds help pain Denies side effects SCS, 23/05-helpful Last uds-04/04/24 documented in this encounter [facility] 05-23-2024 Telephone encounter Note No response from [employer] or pt to proceed with C9 for car carrier for scooter. Spoke with pt who stated "I haven't heard anything from them either" Called and spoke with Karla Burgess, stated "pt told us he is almost done with the lease on his car and will be getting another one soon, so we didn't want to proceed until this until pt has his next car, to make sure of getting the correct carrier". Explained pt never told us this was the holdup. Discussed that [employer] will generate a C9 and send it to us when he has his new car. Spoke with pt and updated on process of getting the carrier. Stated "I understand". [facility] 05-23-2024 Miscellaneous Notes No response from [employer] or pt to proceed with C9 for car carrier for scooter. Spoke with pt who stated "I haven't heard anything from them either" Called and spoke with Karla Burgess, stated "pt told us he is almost done with the lease on his car and will be getting another one soon, so we didn't want to proceed until this until pt has his next car, to make sure of getting the correct carrier". Explained pt never told us this was the holdup. Discussed that [employer] will generate a C9 and send it to us when he has his new car. Spoke with pt and updated on process of getting the carrier. Stated "I understand". Spoke with Rep @ [employer] after not hearing from them, asked [...] fill out C9. documented in this encounter [facility] 05-08-2024 Telephone encounter Note Spoke with Rep @ [employer] after not hearing from them, asked if there was a decision made on what car carrier and cover were needed for the scooter, stated they were not sure, will look into this and return the call. Direct number given. [facility] 05-02-2024 Telephone encounter Note Talked to patient and he verbally understands his chest xray was remarkable. Joselito Ruffin [facility] 05-02-2024 Miscellaneous Notes Talked to patient and he verbally understands his chest xray was remarkable. Joselito Ruffin Please inform patient that chest x-ray is unremarkable. Prescription sent to [facility]. Ashutosh Hennessy APRN.OIL FIRE SPECIALIST documented in this encounter [facility] 05-02-2024 Telephone encounter Note Please inform patient that chest x-ray is unremarkable. Prescription sent to [facility] pharmacy. Ashutosh Hennessy APRN.CNP [facility] 05-02-2024 History of Presen t illness [...] PATIENT PRESENTS WITH AN IMPLANTABLE OR ATTACHED TRANSPLANT WORKER: No RADIOLOGY DEPARTMENT: General X-ray: Exam(s) Completed: Chest X-Ray PERIPHERAL IV DATA: Not applicable SIGNED BY: EDITA Garcia) May 02, 2024 5:53 PM documented in this encounter [facility] 05-02-2024 Note HNO ID: [id number] Author: BANDAR DUPREE RT(R) Service: ? Author Type: Heavy Threader Type: Progress Notes Filed: 05/02/2024 18:01 Note [...] PATIENT PRESENTS WITH AN IMPLANTABLE OR ATTACHED TRANSPLANT WORKER: No RADIOLOGY DEPARTMENT: General X-ray: Exam(s) Completed: Chest X-Ray PERIPHERAL IV DATA: Not applicable SIGNED BY: RT Radha(Dinesh) May 02, 2024 5:53 PM [facility] 05-02-2024 Note HNO ID: [id number] Author: ASHUTOSH HENNESSY APRN.OIL FIRE SPECIALIST Service: ? Author Type: Nurse Practitioner Type: [...] worsening, or sympt (more content not included)... [facility] 05-02-2024 History of Presen t [...] of care. This note was generated using [employer] software. It may contain errors in wording, punctuation, or spelling. Ashutosh Hennessy APRN.BRET documented in this encounter [facility] 04-26-2024 Telephone encounter Note VM received from pt requesting a C9 for the (approved) scooter carrier and cover. Spoke with Juanis / Selene who suggested calling [employer] for actual equipment code. Called [employer], left message for Rep to send the codes or call back with information to fill out C9. [facility] 04-04-2024 Telephone encounter Note Cong here today for FUOV asking if we heard from [employer] or the [employer] about his WC. Spoke with Juanis (MIHAI) who stated "we are trying to come to an agreement with the [employer] on the correct type of chair for him, so I am waiting to hear back from them (some of this was delayed due to her time off and the holiday), and then I will give him a call. Spoke with pt and informed of update. [facility] 04-04-2024 Miscellaneous Notes Cong here today for FUOV asking if we heard from [employer] or the [employer] about his WC. Spoke with Juanis (MIHAI) who stated "we are trying to come to an agreement with the [employer] on the correct type of chair for him, so I am waiting to hear back from them (some of this was delayed due to her time off and the holiday), and then I will give him a call. Spoke with pt and informed of update. [facility] [facility] 04-04-2024 Instructions Dawit Hernandez MD - 04/04/2024 8:19 AM EDT Repeat [...] 6 weeks time. documented in this encounter [facility] 04-04-2024 History of Presen t illness Narrative This note was created using [employer] Coriter. Subjective Cong Harrison is a 59 year old male. The patient primarily being seen for left leg pain - [facility] Patient was last seen on: 02/07/24 At that time, the treatment plan was: see notes Current Meds: Nucynta - last dose this am, Cymbalta - this am, Prilosec - this am, Hytrin - last pm, Movantik - this am Efficacy: "help to a certain degree" Side effects: none TENS unit: has SCS [...] (Temporal) Resp 20 Ht 170.2 cm (5' 7") Wt 88.5 kg (195 lb) SpO2 99% [...] right knee, unspecified osteoarthritis type - [facility] - ICD9: 715.96, ICD10: M17.11 4. Psychogenic pain - [facility] - ICD9: 307.80, ICD10: F45.42 PLAN: Repeat [...] Dawit Hernandez MD documented in this encounter [facility] 04-04-2024 Note HNO ID: [id number] Author: DAWIT HERNANDEZ MD Service: ? Author Type: Anesthesiologist Type: Progress Notes Filed: 04/05/2024 07:43 Note Text: This note was created using NoteWriter. Subjective Cong Harrison is a 59 year old male. The patient primarily being seen for left leg pain - [facility] Patient was last seen on: 02/07/24 At that time, the treatment plan was: see notes Current Meds: Nucynta - last dose this am, Cymbalta - this am, Prilosec - this am, Hytrin - last pm, Movantik - this am Efficacy: "help to a certain degree" Side effects: none TENS unit: has SCS [...] (Temporal) Resp 20 Ht 170.2 cm (5' 7") Wt 88.5 kg (195 lb) SpO2 99% [...] ICD10: M17.11 4. Psychogenic pain - [facility] - ICD9: 307.80, ICD10: F45.42 PLAN: Repeat [...] [place] (more content not included)... [facility] 03-19-2024 Telephone encounter Note The following approved medication requests have been transmitted electronically. Requested Prescriptions Signed Prescriptions Disp Refills tapentadol (NUCYNTA) 100 mg tab 120 tablet 0 Sig: Take 1 tablet by mouth every 6 hours as needed for up to 30 days. Authorizing Provider: ESTELA DAY PA-C [facility] 03-19-2024 Miscellaneous Notes The following approved [...] wrong pharmacy. Called and cancelled script t [facility] pharmacy. New script attached to go to [facility]. Tuyet Randolph RN documented in this encounter [facility] 03-19-2024 Telephone encounter Note Patient called and stated that nucynta script was sent to the wrong pharmacy. Called and cancelled script t [facility] pharmacy. New script attached to go to [facility]. Tuyet Randolph RN [facility] 03-19-2024 Telephone encounter Note The following approved medication requests have been transmitted electronically. Requested Prescriptions Signed Prescriptions Disp Refills tapentadol (NUCYNTA) 100 mg tab 120 tablet 0 Sig: Take 1 tablet by mouth every 6 hours as needed for up to 30 days. Authorizing Provider: ESTELA DAY PA-C [facility] 03-19-2024 Miscellaneous Notes The following approved [...] UDS: Opioid/non opioid Agreement signed 11/15/23 [facility] DX 01/25/23 03/09/2023 change nucynta to er 250 mg bid due 03/23/2023 12/27/23 - See title lawyer letter (imported 12/26) for support of power WC 01/25/24 Power wheelchair was denied. No results found for: "SUMM", PREGAB No results found for: "UQNOTE", "OPIATEPNMGT", "DRUGSCRPAIN" Urine Panel: No results found for: "UQCANN", "UQBNZL", "DXH6TIJ", "UQAMPH", "UQMAMP", "UQBUPRE", "UQNORBUP", "UQMTHD", "UQEDDP", "UQTRAM", "UQDTRM", "UQFNTL", "UQNFTL", "UQCODE", "UQMORP", "UQDCDN", "UQHCOD", "UQOXYC", "UQHMOR", "UQOXYM", "UQCREA", "UQPH", "UQSPGR", "UQOXID", "UQSPQ" @FLOW([id number])@ No results found for: "SUMM" Summary Report (Summary) Date Value Ref Range Status 08/11/2022 FINAL Final Comment: ==== TOXASSURE COMP DRUG ANALYSIS,UR ==== Test Result Flag Units Drug Present and Declared for Prescription Verification Tapentadol >36197 EXPECTED ng/mg creat Source of tapentadol is [...] Tuyet Randolph RN documented in this encounter [facility] 03-19-2024 Telephone encounter Note Patient phones [...] mg bid due 03/23/2023 12/27/23 - See title lawyer letter (imported 12/26) for support of power WC 01/25/24 Power wheelchair was denied. No results found for: "SUMM", PREGAB No results found for: "UQNOTE", "OPIATEPNMGT", "DRUGSCRPAIN" Urine Panel: No results found for: "UQCANN", "UQBNZL", "NRI2INF", "UQAMPH", "UQMAMP", "UQBUPRE", "UQNORBUP", "UQMTHD", "UQEDDP", "UQTRAM", "UQDTRM", "UQFNTL", "UQNFTL", "UQCODE", "UQMORP", "UQDCDN", "UQHCOD", "UQOXYC", "UQHMOR", "UQOXYM", "UQCREA", "UQPH", "UQSPGR", "UQOXID", "UQSPQ" @FLOW([id number])@ No results found for: "SUMM" Summary Report (Summary) Date Value Ref Range Status 08/11/2022 FINAL Final Comment: ==== TOXASSURE COMP DRUG ANALYSIS,UR ==== Test Result Flag Units Drug Present and Declared for Prescription Verification Tapentadol >94817 EXPECTED ng/mg creat Source of tapentadol is [...] Please review and advise. Tuyet Randolph RN [facility] 02-27-2024 Telephone encounter Note The following [...] once daily as needed. Estela Day PA-C [facility] 02-27-2024 Miscellaneous Notes The following approved [...] mg bid due 03/23/2023 12/27/23 - See title lawyer letter (imported 12/26) for support of power WC 01/25/24 Power wheelchair was denied. No results found for: "SUMM", PREGAB No results found for: "UQNOTE", "OPIATEPNMGT", "DRUGSCRPAIN" Urine Panel: No results found for: "UQCANN", "UQBNZL", "[id number]", "UQAMPH", "UQMAMP", "UQBUPRE", "UQNORBUP", "UQMTHD", "UQEDDP", "UQTRAM", "UQDTRM", "UQFNTL", "UQNFTL", "UQCODE", "UQMORP", "UQDCDN", "UQHCOD", "UQOXYC", "UQHMOR", "UQOXYM", "UQCREA", "UQPH", "UQSPGR", "UQOXID", "UQSPQ" @FLOW([id number])@ No results found for: "SUMM" Summary Report (Summary) Date Value Ref Range Status 08/11/2022 FINAL Final Comment: ==== TOXASSURE COMP DRUG ANALYSIS,UR ==== Test Result Flag Units Drug Present and Declared for Prescription Verification Tapentadol >30393 EXPECTED ng/mg creat Source of tapentadol is [...] effective date: 11/15/2023 Please review and advise. aPm Nguyen RN documented in this encounter [facility] 02-27-2024 Telephone encounter Note Patient phones [...] mg bid due 03/23/2023 12/27/23 - See title lawyer letter (imported 12/26) for support of power WC 01/25/24 Power wheelchair was denied. No results found for: "SUMM", PREGAB No results found for: "UQNOTE", "OPIATEPNMGT", "DRUGSCRPAIN" Urine Panel: No results found for: "UQCANN", "UQBNZL", "GSF9HSO", "UQAMPH", "UQMAMP", "UQBUPRE", "UQNORBUP", "UQMTHD", "UQEDDP", "UQTRAM", "UQDTRM", "UQFNTL", "UQNFTL", "UQCODE", "UQMORP", "UQDCDN", "UQHCOD", "UQOXYC", "UQHMOR", "UQOXYM", "UQCREA", "UQPH", "UQSPGR", "UQOXID", "UQSPQ" @FLOW([id number])@ No results found for: "SUMM" Summary Report (Summary) Date Value Ref Range Status 08/11/2022 FINAL Final Comment: ==== TOXASSURE COMP DRUG ANALYSIS,UR ==== Test Result Flag Units Drug Present and Declared for Prescription Verification Tapentadol >58665 EXPECTED ng/mg creat Source of tapentadol is [...] Please review and advise. Pam Nguyen RN [facility] 02-07-2024 Instructions Estela Day PA-C - [...] if you need to have this reprogrammed [phone]. He will continue with core strengthening and range of motion exercises. Follow-up in the office in [address] Hernandez I discussed the patient with Dr. Hernandez who agrees with my assessment and plan. All of the above is to improve functionality and quality of life. No evidence of drug abuse or diversion is seen at this time. documented in this encounter [facility] 02-07-2024 History of Presen t illness Narrative This note was created using [employer]. Subjective Cong Harrison is a 59 year old male. The patient primarily being seen for left leg pain - [facility] Patient was last seen on: 12/27/23 At [...] (Temporal) Resp 20 Ht 170.2 cm (5' 7") Wt 88.9 kg (196 lb) SpO2 99% [...] if you need to have this reprogrammed [phone]. He will continue with core strengthening and range of motion exercises. Follow-up in the office in [address] Hernandez 2. Complex regional pain syndrome type 1 of right lower extremity - ICD9: 337.22, ICD10: G90.521 3. Osteoarthritis of right knee, unspecified osteoarthritis type - [facility] - ICD9: 715.96, ICD10: M17.11 4. Psychogenic pain - [facility] - ICD9: 307.80, ICD10: F45.42 Estela Day PA-C documented in this encounter [facility] 02-07-2024 Note HNO ID: [id number] Author: ESTELA DAY PA-C Service: ? Author Type: Physician District Plant Supervisor Type: Progress Notes Filed: 02/07/2024 08:41 Note Text: This note was created using [employer]. Subjective Cong Harrison is a 59 year old male. The patient primarily being seen for left leg pain - [facility] Patient was last seen on: 12/27/23 At [...] (Temporal) Resp 20 Ht 170.2 cm (5' 7") Wt 88.9 kg (196 lb) SpO2 99% [...] continue using his spinal cord stimulator. Call [employer] if you need to have this reprogrammed [phone]. He will continue with core strengthening and range of motion exercises. Follow-up in the office in [address] Hernandez 2. Complex regional pain syndrome type 1 of right lower extremity - ICD9: 337.22, ICD10: G90.521 3. Osteoarthritis of right knee, unspecified osteoarthritis type - [facility] - ICD9: 715.96, ICD10: M17.11 4. Psychogenic pain - [facility] - ICD9: 307.80, ICD10: F45.42 Estela Day PA-C [facility] 01-20-2024 Miscellaneous Notes The following approved medication requests have been transmitted electronically. Requested Prescriptions Pending Prescriptions Disp Refills terazosin (HYTRIN) 1 mg capsule 90 capsule 1 Sig: Take 1 capsule by mouth once daily. Estela Day PA-C Patient phones requesting refills as follows: Requested Prescriptions No prescriptions requested or ordered in this encounter Last UDS: Opioid/non opioid Agreement signed 11/15/23 [facility] DX 01/25/23 03/09/2023 change nucynta to er 250 mg bid due 03/23/2023 12/27/23 - See title lawyer letter (imported 12/26) for support of power WC No results found for: "SUMM", PREGAB No results found for: "UQNOTE", "OPIATEPNMGT", "DRUGSCRPAIN" Urine Panel: No results found for: "UQCANN", "UQBNZL", "PDI6FVG", "UQAMPH", "UQMAMP", "UQBUPRE", "UQNORBUP", "UQMTHD", "UQEDDP", "UQTRAM", "UQDTRM", "UQFNTL", "UQNFTL", "UQCODE", "UQMORP", "UQDCDN", "UQHCOD", "UQOXYC", "UQHMOR", "UQOXYM", "UQCREA", "UQPH", "UQSPGR", "UQOXID", "UQSPQ" @FLOW([id number])@ No results found for: "SUMM" Summary Report (Summary) Date Value Ref Range Status 08/11/2022 FINAL Final Comment: ==== TOXASSURE COMP DRUG ANALYSIS,UR ==== Test Result Flag Units Drug Present and Declared for Prescription Verification Tapentadol >36371 EXPECTED ng/mg creat Source of tapentadol is [...] Tuyet Randolph RN documented in this encounter [facility] 01-12-2024 Miscellaneous Notes The following approved [...] mg bid due 03/23/2023 12/27/23 - See title lawyer letter (imported 12/26) for support of power WC No results found for: "SUMM", PREGAB No results found for: "UQNOTE", "OPIATEPNMGT", "DRUGSCRPAIN" Urine Panel: No results found for: "UQCANN", "UQBNZL", "WPX2OAC", "UQAMPH", "UQMAMP", "UQBUPRE", "UQNORBUP", "UQMTHD", "UQEDDP", "UQTRAM", "UQDTRM", "UQFNTL", "UQNFTL", "UQCODE", "UQMORP", "UQDCDN", "UQHCOD", "UQOXYC", "UQHMOR", "UQOXYM", "UQCREA", "UQPH", "UQSPGR", "UQOXID", "UQSPQ" @FLOW([id number])@ No results found for: "SUMM" Summary Report (Summary) Date Value Ref Range Status 08/11/2022 FINAL Final Comment: ==== TOXASSURE COMP DRUG ANALYSIS,UR ==== Test Result Flag Units Drug Present and Declared for Prescription Verification Tapentadol >84552 EXPECTED ng/mg creat Source of tapentadol is [...] Josette Wong RN documented in this encounter [facility] 12-27-2023 Instructions Estela Day PA-C - [...] if you need to have this reprogrammed [phone]. He will continue with core strengthening and [...] at this time. documented in this encounter [facility] 12-27-2023 Note HNO ID: [id number] Author: ESTELA DAY PA-C Service: ? Author Type: Physician District Plant Supervisor Type: Progress Notes Filed: 12/27/2023 08:56 Note Text: This note was created using [employer]. Subjective Cong Harrison is a 58 year old male. The patient primarily being seen for left leg pain - [facility] Patient was last seen on: 11/15/23 At [...] is worried about his medications because [facility]'s payment system is currently down and he [...] He also has issues with the leg "giving out" when he is on it for longer [...] (Temporal) Resp 20 Ht 170.2 cm (5' 7") Wt 88.9 kg (196 lb) SpO2 97% [...] patien (more content not included)... [facility] 12-27-2023 History of Presen t illness Narrative This note was created using [employer]. Subjective Cong Harrison is a 58 year old male. The patient primarily being seen for left leg pain - [facility] Patient was last seen on: 11/15/23 At [...] is worried about his medications because [facility]'s payment system is currently down and he [...] He also has issues with the leg "giving out" when he is on it for longer [...] (Temporal) Resp 20 Ht 170.2 cm (5' 7") Wt 88.9 kg (196 lb) SpO2 97% [...] if you need to have this reprogrammed [phone]. He will continue with core strengthening and [...] right knee, unspecified osteoarthritis type - [facility] - ICD9: 715.96, ICD10: M17.11 4. Psychogenic pain - [facility] - ICD9: 307.80, ICD10: F45.42 Estela Day PA-C documented in this encounter [facility] 11-15-2023 Note HNO ID: [id number] Author: ESTELA DAY PA-C Service: ? Author Type: Physician District Plant Supervisor Type: Progress Notes Filed: 11/15/2023 09:00 Note Text: This note was created using [employer]. Subjective Cong Harrison is a 58 year old male. The patient primarily being seen for left leg pain [facility] Patient was last seen on: 10/05/23 At [...] if you need to have this reprogrammed [phone]. He will continue with core strengthening and range of motion exercises. Follow-up in office in 6 weeks time. We will continue to work on getting a power wheelchair to assist him when he has to walk longer distances. - TAPENTADOL 100 MG TABLET (Two stable chronic illnesses/prescription d (more content not included)... [facility] 10-05-2023 Estela Pagan PA-C - 10/05/2023 8:08 AM EST The [...] if you need to have this reprogrammed [phone]. He will continue with core strengthening and [...] at this time. documented in this encounter [facility] 10-05-2023 Note HNO ID: [id number] Author: Estela Day PA-C Service: ? Author Type: Physician District Plant Supervisor Type: Progress Notes Filed: 10/05/2023 8:25 AM Note Text: This note was created using [employer]. Subjective Cong Harrison is a 58 year old male. The patient primarily being seen for left leg pain-[facility] Patient was last seen on: 08/24/23 At [...] if you need to have this reprogrammed [phone]. He w (more content not included)... [facility] 10-05-2023 History of Presen t illness Narrative This note was created using [employer]. Subjective Cong Harrison is a 58 year old male. The patient primarily being seen for left leg pain-[facility] Patient was last seen on: 08/24/23 At [...] if you need to have this reprogrammed [phone]. He will continue with core strengthening and [...] ICD10: M17.11 4. Psychogenic pain - [facility] - ICD9: 307.80, ICD10: F45.42 Estela Day PA-C documented in this encounter [facility] 09-26-2023 Miscellaneous Notes The following approved [...] Norma Sharma RN documented in this encounter [facility] 09-20-2023 Miscellaneous Notes Addended by: ESTELA DAY on: 09/20/2023 12:41 PM Modules accepted: Orders Call was received from [facility] that they need an order for PT for the wheelchair evaluation, not OT. The order was changed and faxed to [phone]. Order with approval was faxed to [facility] per pt request, 09/16/23 @ 9902. Pt informed. Noted, and signed. Process for [facility] coverage of powerchair request started and per [facility], needs a OT Eval 1st before request can be made for powerchair. Also stated [facility] will decide on powerchair company once request is made. Explained to pt who requested OT Eval be done at [facility] (fax for order [phone]). Just needs order signed. documented in this encounter [facility] 07-19-2023 Miscellaneous Notes The following approved [...] Ashley Stratton RN documented in this encounter [facility] 07-13-2023 Instructions Estela Day PA-C - [...] if you need to have this reprogrammed [phone]. He will continue with core strengthening and [...] at this time. documented in this encounter [facility] 07-13-2023 History of Presen t illness Narrative This note was created using [employer]. Subjective Cong Harrison is a 58 year old male. The patient primarily being seen for left leg pain-[facility] Patient was last seen on: 06/01/23 At [...] if you need to have this reprogrammed [phone]. He will continue with core strengthening and range of motion exercises. Follow-up in office in 6 weeks time. Find out where you can go and what the script needs to say for a power chair to use when he goes longer distances outdoors. We will submit a C-9 for this. 2. Complex regional pain syndrome type 1 of right lower extremity - [facility] - ICD9: 337.22, ICD10: G90.521 3. Osteoarthritis of right knee, unspecified osteoarthritis type - [facility] - ICD9: 715.96, ICD10: M17.11 4. Psychogenic pain - [facility] - ICD9: 307.80, ICD10: F45.42 Estela Day PA-C documented in this encounter [facility] 06-01-2023 Instructions Estela Day PA-C - [...] if you need to have this reprogrammed [phone]. He will continue with core strengthening and range of motion exercises. Follow-up in office in 6 weeks time. I discussed the patient with Dr. Hernandez who agrees with my assessment and plan. All of the above is to improve functionality and quality of life. No evidence of drug abuse or diversion is seen at this time. documented in this encounter [facility] 06-01-2023 History of Presen t illness Narrative This note was created using [employer]. Subjective Cong Harrison is a 58 year old male. The patient primarily being seen for left leg pain-[facility] Patient was last seen on: 04/20/23 At [...] if you need to have this reprogrammed [phone]. He will continue with core strengthening and range of motion exercises. Follow-up in office in 6 weeks time. 2. Complex regional pain syndrome type 1 of right lower extremity - [facility] - ICD9: 337.22, ICD10: G90.521 3. Osteoarthritis of right knee, unspecified osteoarthritis type - [facility] - ICD9: 715.96, ICD10: M17.11 4. Psychogenic pain - [facility] - ICD9: 307.80, ICD10: F45.42 Estela Day PA-C documented in this encounter [facility] 05-30-2023 Miscellaneous Notes The following approved [...] Norma Sharma RN documented in this encounter [facility] 04-22-2023 Miscellaneous Notes The following approved medication requests have been transmitted electronically. Requested Prescriptions Pending Prescriptions Disp Refills tapentadol (NUCYNTA) 100 mg tab 120 tablet 0 Sig: Take 1 tablet by mouth every 6 hours as needed for up to 30 days. Estela Day PA-C Med should be at [facility] documented in this encounter [facility] 04-21-2023 Miscellaneous Notes Pt informed methadone should not be filled, switched back to nucynta IR documented in this encounter [facility] 04-21-2023 Miscellaneous Notes The following approved [...] back to previous dosing, and that [facility] said the nucynta ER denial would need appealed with the title lawyer, stated "ok". Go back to nucynta 100 mg q 6 received stating "I need a PA for my methadone". Explained per EKG, is now contraindicated (prolonged Q wave), cannot take this. Called [facility] pharmacy and explained this and 4 other preferred medications were tried and failed "you can try the tramadol er or hysingla", per Pharmacy. Explained tramadol would not be strong enough and with Hysingla, per [facility] Pharmacist, "the maufacturer only has a limited supply, is getting harder to get". Discussed this with [facility] who stated "we are seeing this too, we need proof that he was on norco (this was over 10 years ago, records no longer available, this should be in their billing records) and norco didn't help him in the past, the ER would most likely not help either, who then stated "he can appeal the nucynta ER with his title lawyer, the nucynta IR is still available". What should he be on next? documented in this encounter [facility] 04-20-2023 Instructions Dawit Hernandez MD - [...] 6 weeks time. documented in this encounter [facility] 04-20-2023 History of Presen t illness Narrative This note was created using [employer]. Subjective Cong Harrison is a 58 year old male. The patient primarily being seen for left leg pain - [facility] Patient was last seen on: 03/09/23 At that time, the treatment plan was: see notes Current Meds: Nucynta - last dose 4 days ago - [facility] wants med switched to Methadone - he [...] (97.1 F) (Temporal) Ht 170.2 cm (5' 7") Wt 85.3 kg (188 lb) SpO2 98% [...] - C - ICD9: 715.96, ICD10: M17.11 3. Psychogenic pain - [facility] - ICD9: 307.80, ICD10: F45.42 PLAN: Patient [...] Dawit Hernandez MD documented in this encounter [facility] 04-19-2023 Miscellaneous Notes Pt went to [facility] to have EKG done but EKG person not there after 2pm. Suggested having it done at [facility] in the am when here for FU, stated he would do that. Spoke with pt and explained medication switch to methadone, and that EKG is needed 1st (requesting to have done @ [facility]), will send order over today, to have done 1st before starting medication. Stated "I am in a lot of pain". C9 to be submitted for EKG also. May try methadone 5 mg twice daily after obtaining baseline EKG We are only able to help him as much as his insurance would allow us to Nucynta ER required a PA, sent 04/14, denied (for tried and failed medications needed), resent 04/15, no reply until today ([facility] closed 04/18), pt has been out of this med since Sat.. [facility] is still denying it saying he has [...] a day to get in), and the logging superintendent has a very low inventory of the 100 and 120mg). What can he be switched to? documented in this encounter [facility] 04-15-2023 Miscellaneous Notes The following approved [...] Norma Sharma RN documented in this encounter [facility] 03-10-2023 Miscellaneous Notes The following approved medication requests have been transmitted electronically. Requested Prescriptions Pending Prescriptions Disp Refills naloxone 4 mg/actuation nasal spray (NARCAN) 1 Each 0 Sig: Use 1 spray in one nostril as needed for overdose. May repeat every 2 to 3 min in alternating nostrils until medical assistance is available Estela Day PA-C Sent to wrong pharmacy Patient phones requesting refills as follows: Requested Prescriptions Pending Prescriptions Disp Refills naloxone 4 mg/actuation nasal spray (NARCAN) 1 Each 0 Sig: Use 1 spray in one nostril as needed for overdose. May repeat every 2 to 3 min in alternating nostrils until medical assistance is available Please review and advise. Ashley Stratton RN documented in this encounter [facility] 03-09-2023 Instructions Dawit Hernandez MD - [...] 6 weeks time. documented in this encounter [facility] 03-09-2023 History of Presen t illness Narrative This note was created using [employer] ([employer] Coriter. Subjective Cong Harrison is a 58 year old male. The patient primarily being seen for left leg pain - [facility] Patient was last seen on: 01/26/23 At that time, the treatment plan was: see notes Current Meds: Nucynta - last dose this am, Cymbalta - this am, Prilosec - this am, Hytrin - last pm, Movantik - this am Efficacy: "help to a degree" Side effects: constipation - relieved with Movantik [...] (Temporal) Resp 20 Ht 170.2 cm (5' 7") Wt 85.3 kg (188 lb) SpO2 99% [...] 1 of left lower extremity - [facility] - ICD9: 337.22, ICD10: G90.522 (primary diagnosis) 2. Osteoarthritis of right knee, unspecified osteoarthritis type - [facility] - ICD9: 715.96, ICD10: M17.11 3. Psychogenic pain - [facility] - ICD9: 307.80, ICD10: F45.42 PLAN: Repeat [...] Dawit Hernandez MD documented in this encounter [facility] 02-21-2023 Miscellaneous Notes The following approved [...] Norma Sharma RN documented in this encounter [facility] 01-26-2023 Instructions Daiwt Hernandez MD - 01/26/2023 8:24 AM EDT The patient will continue with Nucynta, Cymbalta, terazosin, omeprazole, Lunesta, and Movantik. He was encouraged to increase fluid and fiber intake. Continue with core strengthening and range of motion exercises. Weight reduction. We will arrange reprogramming with [employer] customer response representative. He would like to have his spinal cord stimulator therapy optimized before we make any changes on his medications. Follow-up in office in 6 weeks time. documented in this encounter [facility] 01-26-2023 History of Presen t illness Narrative This note was created using NoteWriter. Subjective Cong Harrison is a 58 year old male. The patient primarily being seen for left leg pain - [facility] Patient was last seen on: 12/14/22 At [...] its own. He is supposed to meet [employer] customer response representative for reprogramming Review of Systems Constitutional: [...] (Temporal) Resp 20 Ht 170.2 cm (5' 7") Wt 89.4 kg (197 lb) SpO2 97% [...] Reflex sympathetic dystrophy of right leg - [facility] - ICD9: 337.22, ICD10: G90.521 (primary diagnosis) The patient will continue with Nucynta, Cymbalta, terazosin, omeprazole, Lunesta, and Movantik. He was encouraged to increase fluid and fiber intake. Continue with core strengthening and range of motion exercises. Weight reduction. We will arrange reprogramming with [employer] customer response representative. He would like to have his spinal cord stimulator therapy optimized before we make any changes on his medications. Follow-up in office in 6 weeks time. 2. Complex regional pain syndrome type 1 of left lower extremity - [facility] - ICD9: 337.22, ICD10: G90.522 3. Osteoarthritis of right knee, unspecified osteoarthritis type - [facility] - ICD9: 715.96, ICD10: M17.11 31 minute visit Greater than two stable chronic illness and prescription medication management. This document was transcribed using a voice recognition software and may contain minor errors. Dawit Hernandez MD documented in this encounter [facility] 01-12-2023 Miscellaneous Notes The following approved [...] Ashley Stratton RN documented in this encounter [facility] 12-21-2022 Miscellaneous Notes The following approved [...] Ashley Stratton RN documented in this encounter [facility] 12-14-2022 Instructions Estela Day PA-C - [...] at this time. documented in this encounter [facility] 12-14-2022 History of Presen t illness Narrative This note was created using [email or web address]. Subjective Cong Harrison is a 57 year old male. The patient primarily being seen for [facility] left leg pain Patient was last seen [...] F) Resp 20 Ht 170.2 cm (5' 7") Wt 89.8 kg (198 lb) SpO2 97% [...] Estela Day PA-C documented in this encounter [facility] 11-02-2022 Instructions Estela Day PA-C - [...] at this time. documented in this encounter [facility] 11-02-2022 History of Presen t illness Narrative This note was created using [employer]. Subjective Cong Harrison is a 57 year old male. The patient primarily being seen for left leg pain - [facility] Patient was last seen on: At that time, the treatment plan was: see notes Current Meds: Nucynta - last dose this am, Cymbalta - this anm Prilosec - this am, Hytrin - last pm, Movantik - this am Efficacy: "help to a certain degree" Side effects: constipation - relieved with Miralax [...] (Temporal) Resp 20 Ht 170.2 cm (5' 7") Wt 89.4 kg (197 lb) SpO2 98% [...] Estela Day PA-C documented in this encounter [facility] 10-26-2022 Miscellaneous Notes The following approved [...] Norma Sharma RN documented in this encounter [facility] 10-18-2022 Miscellaneous Notes The following approved [...] Ashley Stratton RN documented in this encounter [facility] 08-24-2022 Miscellaneous Notes The following approved [...] Ashley Stratton RN documented in this encounter [facility] 07-12-2022 Miscellaneous Notes The following approved [...] Ashley Stratton RN documented in this encounter [facility] 07-01-2022 Miscellaneous Notes The following approved [...] as needed. Estela Day PA-C Sent to [facility] 06/30/22 Requested Prescriptions Pending Prescriptions [...] Ashley Stratton RN documented in this encounter [facility] 06-30-2022 Miscellaneous Notes The following approved [...] Ashley Stratton RN documented in this encounter [facility] 06-28-2022 Instructions Estela Day PA-C - [...] at this time. documented in this encounter [facility] 06-28-2022 History of Presen t illness Narrative This note was created using [email or web address]. Subjective Cong Harrison is a 57 year old male. The patient primarily being seen for left leg pain - [facility] Patient was last seen on: 05/17/22 At [...] (Temporal) Resp 20 Ht 170.2 cm (5' 7") Wt 90.3 kg (199 lb) SpO2 96% [...] Estela Day PA-C documented in this encounter [facility] 06-22-2022 Miscellaneous Notes The following approved [...] Ashley Stratton RN documented in this encounter [facility] 05-17-2022 Miscellaneous Notes Summary: handicap placard An order was sent for a handicap placard for the patient. Pt request order for khushbu falk mailed to him Please review and advise. Ashley Stratton RN documented in this encounter [facility] 05-17-2022 Instructions Estela Day PA-C - [...] at this time. documented in this encounter [facility] 05-17-2022 History of Presen t illness Narrative This note was created using [employer]. Subjective Cong Harrison is a 57 year old male. The patient primarily being seen for left leg pain - [facility] Patient was last seen on: 03/08/22 At [...] (Temporal) Resp 20 Ht 170.2 cm (5' 7") Wt 89.8 kg (198 lb) SpO2 97% [...] Reflex sympathetic dystrophy of right leg - [facility] - ICD9: 337.22, ICD10: G90.521 (primary diagnosis) [...] Estela Day PA-C documented in this encounter [facility] 04-20-2022 Miscellaneous Notes The following approved [...] Ashley Stratton RN documented in this encounter [facility] Evaluation note Diagnosis Reflex sympathetic dystrophy of right leg- Primary Reflex sympathetic dystrophy of the lower limb [facility] Diagnosis Reflex sympathetic dystrophy of right leg - [facility]- Primary Reflex sympathetic dystrophy of the lower limb Complex regional pain syndrome type 1 of left lower extremity Osteoarthritis of right knee, unspecified osteoarthritis type [facility] Diagnosis Reflex sympathetic dystrophy of right leg- Primary Reflex sympathetic dystrophy of the lower limb [facility] Diagnosis Reflex sympathetic dystrophy of right leg Reflex sympathetic dystrophy of the lower limb [facility] Diagnosis Complex regional pain syndrome type 1 of left lower extremity- Primary Osteoarthritis of right knee, unspecified osteoarthritis type [facility] Diagnosis Reflex sympathetic dystrophy of right leg Reflex sympathetic dystrophy of the lower limb [facility] Diagnosis Complex regional pain syndrome type 1 of left lower extremity- Primary Reflex sympathetic dystrophy of right leg Reflex sympathetic dystrophy of the lower limb Osteoarthritis of right knee, unspecified osteoarthritis type [facility] Diagnosis Reflex sympathetic dystrophy of right leg Reflex sympathetic dystrophy of the lower limb [facility] Diagnosis Reflex sympathetic dystrophy of right leg - [facility]- Primary Reflex sympathetic dystrophy of the lower limb Complex regional pain syndrome type 1 of left lower extremity - [facility] Osteoarthritis of right knee, unspecified osteoarthritis type - [facility] Diagnosis Reflex sympathetic dystrophy of right leg Reflex sympathetic dystrophy of the lower limb [facility] Diagnosis Complex regional pain syndrome type 1 of left lower extremity - [facility]- Primary Osteoarthritis of right knee, unspecified osteoarthritis type - [facility] Psychogenic pain - [facility] Psychogenic pain, site unspecified [facility] Diagnosis Complex regional pain syndrome type 1 of left lower extremity- Primary Reflex sympathetic dystrophy of right leg Reflex sympathetic dystrophy of the lower limb [facility] Diagnosis Drug therapy- Primary Encounter for long-term (current) use of other medications Reflex sympathetic dystrophy of right leg Reflex sympathetic dystrophy of the lower limb [facility] Diagnosis Complex regional pain syndrome type 1 of left lower extremity - [facility]- Primary Osteoarthritis of right knee, unspecified osteoarthritis type - [facility] Psychogenic pain - [facility] Psychogenic pain, site unspecified [facility] Diagnosis Complex regional pain syndrome type 1 of right lower extremity- Primary [facility] Diagnosis Complex regional pain syndrome type 1 of right lower extremity [facility] Diagnosis Complex regional pain syndrome type 1 of left lower extremity- Primary [facility] Diagnosis Complex regional pain syndrome type 1 of left lower extremity - [facility]- Primary Complex regional pain syndrome type 1 of right lower extremity - [facility] Osteoarthritis of right knee, unspecified osteoarthritis type - [facility] Psychogenic pain - [facility] Psychogenic pain, site unspecified [facility] Diagnosis Complex regional pain syndrome type 1 of left lower extremity- Primary Complex regional pain syndrome type 1 of right lower extremity - [facility] Osteoarthritis of right knee, unspecified osteoarthritis type - [facility] Psychogenic pain - [facility] Psychogenic pain, site unspecified [facility] Diagnosis Complex regional pain syndrome type 1 of right lower extremity- Primary Complex regional pain syndrome type 1 of left lower extremity Other secondary osteoarthritis of right knee [facility] Diagnosis Complex regional pain syndrome type 1 of left lower extremity [facility] Diagnosis Complex regional pain syndrome type 1 of left lower extremity- Primary Complex regional pain syndrome type 1 of right lower extremity Osteoarthritis of right knee, unspecified osteoarthritis type - [facility] Psychogenic pain - [facility] Psychogenic pain, site unspecified [facility] Diagnosis Complex regional pain syndrome type 1 of left lower extremity- Primary Complex regional pain syndrome type 1 of right lower extremity Osteoarthritis of right knee, unspecified osteoarthritis type - [facility] Psychogenic pain - [facility] Psychogenic pain, site unspecified [facility] Diagnosis Complex regional pain syndrome type 1 of left lower extremity [facility] noteNo assessment information availableWTriHealth Good [facility] Work Phone: Evaluation note* Diagnosis Subacute cough- Primary Cough Subacute cough Cough [facility] Diagnosis Complex regional pain syndrome type 1 of left lower extremity - [facility]- Primary Complex regional pain syndrome type 1 of right lower extremity - [facility] Osteoarthritis of right knee, unspecified osteoarthritis type - [facility] Psychogenic pain - [facility] Psychogenic pain, site unspecified [facility] Subacute cough Cough [facility] Diagnosis Type 2 diabetes mellitus with hyperglycemia (Multi) documented in this encounter [facility] Work Phone: Evaluation note* Diagnosis Onset Date Resolution Status Admit Date MGUS (monoclonal gammopathy of unknown significance) acute Septemb er 2024 9:55am [facility] Work Phone: Progress note Author Anders Medina [facility] Note Date/Time July 29, 2025 10:35am [facility] [address] [place] [place] [address] OFFICE VISIT Date of Service: 07/29/25 0959 MR#: [id number] Acct: [id number] Name: CONG HARRISON Rep #: [id number] : 1965 From: Anders allison MD Age/Sex: 60/M Location: [facility] [place] Status: Signed HPI Subjective Date of Service 07/29/25 Chief Complaint Abnormal protein in blood on testing, MGUS History of Present Illness 60-year-old male with incidental finding of low level, 0.3 g per DL monoclonal Mspike. [facility] Medical History (Updated 07/29/25 @ 10:[address] Anders Medina MD) MGUS (monoclonal gammopathy of unknown significance) Hearing loss, bilateral Traumatic injury of lower leg GERD (gastroesophageal reflux disease) Anemia Vitamin D deficiency, unspecified Hypercalcemia Hyperkalemia Insomnia, unspecified Complex regional pain syndrome I, unspecified Sensorineural hearing loss, bilateral Diabetes Abnormal blood cell count Surgical History Hx of amputation below knee Hx of vasectomy Family History Mother Cancer cervical Other Diabetes Heart disease Hypertension Social History (Updated 07/29/25 @ 10:06 by Ivette Beck) Smoking Status: Never smoker alcohol intake: never substance use type: does not use ROS Constitutional Constitutional: Reports systems reviewed and no addt'l complaints, except as documented; Denies fever(s), night sweats or weight loss Eyes Eyes: Reports systems reviewed and no addt'l complaints, except as documented ENT HEENT: Reports systems reviewed and no addt'l complaints, except as documented; Denies mouth lesions Cardiovascular Cardiovascular: Reports systems reviewed and no addt'l complaints, except as documented; Denies chest pain with activity or edema Respiratory/Chest Respiratory/Chest: Reports systems reviewed and no addt'l complaints, except as documented and cough; Denies dyspnea Gastrointestinal Gastrointestinal: Reports systems reviewed and no addt'l complaints, except as documented and constipation; Denies change in bowel habits, dysphagia, hematochezia or melena Genitourinary Genitourinary: Reports systems reviewed and no addt'l complaints, except as documented; Denies dysuria Musculoskeletal Musculoskeletal: Reports systems reviewed and no addt'l complaints, except as documented; Denies back pain Integumentary Integumentary: Reports systems reviewed and no addt'l complaints, except as documented, dry skin and pruritus; Denies new lesions Neurologic Neurologic: Reports systems reviewed and no addt'l complaints, except as documented; Denies focal weakness or paresthesias Psychiatric Psychiatric: Reports systems reviewed and no addt'l complaints, except as documented Endocrine Endocrinology: Reports systems reviewed and no addt'l complaints, except as documented Hematologic/Lymphatic Hematologic/Lymphatic: Reports systems reviewed and no addt'l complaints, exceptas documented; Denies lymphadenopathy Allergic/Immunologic Allergic/Immunologic: Reports systems reviewed and no addt'l complaints, except as documented Intake Vital Signs 07/29/25 10:01 07/29/25 10:15 Height 5 ft 7 in 5 ft 7 in Weight: 83.178 kg BMI 28.7 BP 122/82 H Blood Pressure Location Lt brachial Position Sitting Respiration 16 Pulse 101 H Pulse Source Monitor Temp 97.8 F Temperature Source Temporal Artery Pulse Oximetry (%) 98 Oxygen Delivery Method room air Intake Is patient in pain?: Yes (chronic pain in legs and back ) Pain scale (1-10): 7 Allergies adhesive tape Adverse Reaction (Verified 07/29/25 10:04) Rash Medications ?Medication ?Instructions ?Recorded ?Confirmed ?Type ascorbic acid (vitamin C) 1,000 mg 1,000 mg PO DAILY 0 01/28/18 07/29/25 History tablet (Vitamin C) duloxetine 60 mg capsule,delayed 60 mg PO BID 01/28/18 07/29/25 History release multivitamin (Daily Multiple 1 ea PO DAILY 01/28/18 History tablet) naloxegol 25 mg tablet (Movantik) 25 mg PO DAILY PRN C onstipation 01/28/18 07/29/25 History omeprazole 40 mg capsule,delayed 40 mg PO BID 01/28/18 07/29/25 History release mecobalamin (vitamin B12) 1,000 1,000 mcg PO QDAY 07/0207/29/25 History mcg lozenges metformin 500 mg tablet 500 mg PO BID 07/23/2507/29 History terazosin 1 mg capsule 1 mg PO QDAY 07/23/25 History cholecalciferol (vitamin D3) 125 125 mcg PO QDAY 07/2907/29/25 History mcg (5,000 unit) capsule tapentadol 100 mg tablet (Nucynta) 100 mg PO BID 07/2907/29/25 History Have you fallen in the past year?: No Central Venous Access Central Venous Access: No Outside labs reviewed will be scanned into EMR. CBC CMP are unremarkable calcium is normal and serum protein electrophoresis July 2025 showed the 0.3 M spike was not further characterized by Exam Physical Exam Narrative ECOG 1 Const alert, oriented x3 and no apparent distress General Appearance: cooperative and comfortable HEENT Face and Sinus: normal facial exam Eyes General Eye: normal appearance of both eyes Neck no lymphadenopathy and no JVD Lymph Lymphatic: no lymphadenopathy noted Resp clear to auscultation bilaterally Cardio regular rate and regular rhythm Jugular Venous Distention: Negative for JVD GI soft to palpation, non-tender and non-distended; Negative for hepatosplenomegaly Back/Spine no thoracic nor lumbar tenderness Extremity no clubbing, cyanosis or edema Extremity Narrative: Left below-knee amputee, wearing prosthesis Skin no rashes or lesions noted Neuro oriented x3 and CN's II-XII intact bilaterally Coordination / Balance: [id number]-no-[id number] test normal Speech: speech normal Gait (Neuro): normal gait Psych mental status grossly normal Coding Level of Care Code Off vis,new,level 4 Exam Problem Focused Diagnoses MGUS (monoclonal gammopathy of unknown significance) D47.2 Assessment and Plan Assessment and Plan (1) MGUS (monoclonal gammopathy of unknown significance): Status: Acute Plan 60-year-old male with incidental finding of low-level 0.3 g per DL M spike, was not further characterized on routine blood testing. History physical and labs (CBC and chemistry panel) do not suggest endorgan damage by a plasma cell dyscrasia. Chronic comorbid conditions: Diabetes, right below knee amputation from prior trauma. Plan: 1. Repeat CBC, chemistry panel and serum protein electrophoresis studies in at least 3 months to confirm persistence of the abnormality. 2. No indication for further workup at this time. Impression and recommendation discussed with patient and . Anders Medina MD Cigarette Making Machine Operator, [facility] Divisions of Medical Oncology & Hematology Department of Internal Medicine [place] [phone] This note was generated using a voice recognition system software. Although itwas reviewed by the author prior to finalization, it may still contain incorrectwords, spelling, and punctuation that were not noted when reviewing prior to saving. If a clinically significant typo or inaccurately typed phrase is noted, please notify the author. Clinical Quality Measures Falls Risk Screening/Assistive Devices Have you fallen in the past year?: No 07/29/25 1035 <Electronically signed by Anders high MD> Date _ Anders Medina MD Cosigner Signature: Date (if applicable) CC: Dr. Afsaneh Green DO ~ [place] [email or web address] Work Phone: Reason for referral (narrative)* Outpatient Procedure (Routine) - Pending Review Specialty Diagnoses / Procedures Referred By Contac t Referred To Contact [facility] Diagnoses Drug therapy Procedures ECG COMPLETE ECG ROUTINE ECG W/LEAST 12 LDS W/I&R Dawit Hernandez MD [address] [place] [address] [facility] [address] [place] [address] Referral ID Status Reason Start Date Expiration Date Visits Requested Visits Authorized [id number] Pending Review Auto-Generat ed Referral 04/19/2023 04/18/2024 1 1 * Medication Prior Authorization - Closed Specialty Diagnoses / Procedures Referred By Iris carson Referred To Contact Diagnoses Reflex sympathetic dystrophy of right leg Dawit Hernandez MD [address] [place] [address] Referral ID Status Reason Start Date Expiration Date Visits Re quested Visits Authorized [id number] [facility] (narrative)No reason for referral information availableWTriHealth Good [facility] Work Phone: Reason for visit Narrative* Imaging (Routine) - Pending Review Specialty Diagnoses / Procedures Referred By Iris carson Referred To Contact Radiology Diagnoses Type 2 diabetes mellitus with hyperglycemia (Multi) Procedures CT cardiac scoring wo IV contrast Afsaneh Green, DO [address] [address] Phone: tel: fax: Referral ID Status Reason Start Date Expiration Date Visits Requested Visits Authorized [id number] Pending Review Perform Procedure 07/11/2024 07/11/[address] [facility] Work Phone: Family History No Family History Records FoundUnknown Family Member Name Dates Details First Degree Relatives Comments:DM, Heart/Lung, HBP , high cholesterol Status:Active Unknown Family Member Name Dates Details First Degree Relatives Comments:DM, Heart/Lung, HBP , high cholesterol Status:Active Relationship Condition Age at Onset Recorded Date/T lashell Not Specified Diabetes mellitus Unknown Cardiac disease Unknown Hypertension Unknown mother Malignant neoplasm Unknown Summary Purpose Advance Directives No Advanced Directives Records FoundNo Advanced Directives Records FoundNo Advanced Directives Records FoundNo Advanced Directives Records FoundNo Advanced Directives Records Found Reason for Referral Specialty Diagnoses / Procedures Referred By Iris carson Referred To Contact Diagnoses Reflex sympathetic dystrophy of right leg Estela Day PA-C [address] [place] [address] Referral ID Status Reason Start Date Expiration Date V isits Requested Visits Authorized [id number] Pending Review 1 1 Referral ID Status Reason Start Date Expiration Date V isits Requested Visits Authorized [id number] Pending Review 1 1 Referral ID Status Reason Start Date Expiration Date V isits Requested Visits Authorized [id number] Pending Review 1 1 Referral ID Status Reason Start Date Expiration Date V isits Requested Visits Authorized [id number] Pending Review 1 1 Specialty Diagnoses / Procedures Referred By Iris carson Referred To Contact [facility] Diagnoses Complex regional pain syndrome type 1 of right lower extremity Complex regional pain syndrome type 1 of left lower extremity Other secondary osteoarthritis of right knee Procedures CONSULT TO PHYSICAL THERAPY PHYSICAL THERAPY EVALUATION HIGH COMPLEX 45 MINS Estela Day PA-C [address] [place] [address] [facility] [address] [address] Referral ID Status Reason Start Date Expiration Date Visits Requested Visits Authorized [id number] Pending Review Auto-Generat ed Referral 3 09/19/2024 1 1 Specialty Diagnoses / Procedures Referred By Iris carson Referred To Contact Occupational Therapy Diagnoses Complex regional pain syndrome type 1 of right lower extremity Complex regional pain syndrome type 1 of left lower extremity Other secondary osteoarthritis of right knee Procedures CONSULT TO PHOTOGRAPHY SPOTTER Estela Day PA-C [address] [place] [address] Referral ID Status Reason Start Date Expiration Date Visits Requested Visits Authorized [id number] Ref Not Required PCP Requested Referral 3 09/15/2024 1 1 Chief Complaint and Reason for Visit Chief Complaint Admit Date URINE April 17, 2025 9:52 am Chief Complaint Admit Date URINE April 17, 2025 9:52 am Amb Documentation July 23, 2025 4:47pm MSPIKE July 29, 2025 9:55am Reason for Visit Admit Date MGUS (monoclonal gammopathy of unknown s ignificance) July 29, 2025 9:55am Additional Source Comments (unrecognized sect ion and content) No Status Records FoundNo Status Records FoundNo Status Records FoundNo Status Records FoundNo Status Records Found INFORMATION SOURCE (unrecogn ized section and content) DATE CREATED AUTHOR 12/03/2020 [facility] [place] DATE CREATED AUTHOR AUTHOR'S ORGANIZ ATION 05/04/2024 [facility] DATE CREATED AUTHOR AUTHOR'S ORGANIZ ATION 08/22/2024 [facility] DATE CREATED AUTHOR AUTHOR'S ORGANIZ ATION 08/24/2024 [facility] DATE CREATED AUTHOR AUTHOR'S ORGANIZ ATION [facility] Source Comments (unrecognize d section and content) In the event this informatio n is protected by the Federal Confidentiality of Alcohol and Drug Abuse Patient Records regulations: The Federal rules restrict any use of the information to criminally investigate or prosecute any alcohol or drug abuse patient.[facility] the event this information is protected by the Federal Confidentiality of Alcohol and Drug Abuse Patient Records regulations: The Federal rules restrict any use of the information to criminally investigate or prosecute any alcohol or drug abuse patient.[facility] HospitalIn the event this information is protected by the Federal Confidentiality of Alcohol and Drug Abuse Patient Records regulations: The Federal rules restrict any use of the information to criminally investigate or prosecute any alcohol or drug abuse patient.[facility] HospitalIn the event this information is protected by the Federal Confidentiality of Alcohol and Drug Abuse Patient Records regulations: The Federal rules restrict any use of the information to criminally investigate or prosecute any alcohol or drug abuse patient.[facility] HospitalIn the event this information is protected by the Federal Confidentiality of Alcohol and Drug Abuse Patient Records regulations: The Federal rules restrict any use of the information to criminally investigate or prosecute any alcohol or drug abuse patient.[facility] HospitalIn the event this information is protected by the Federal Confidentiality of Alcohol and Drug Abuse Patient Records regulations: The Federal rules restrict any use of the information to criminally investigate or prosecute any alcohol or drug abuse patient.[facility] HospitalIn the event this information is protected by the Federal Confidentiality of Alcohol and Drug Abuse Patient Records regulations: The Federal rules restrict any use of the information to criminally investigate or prosecute any alcohol or drug abuse patient.[facility] HospitalIn the event this information is protected by the Federal Confidentiality of Alcohol and Drug Abuse Patient Records regulations: The Federal rules restrict any use of the information to criminally investigate or prosecute any alcohol or drug abuse patient.[facility] HospitalIn the event this information is protected by the Federal Confidentiality of Alcohol and Drug Abuse Patient Records regulations: The Federal rules restrict any use of the information to criminally investigate or prosecute any alcohol or drug abuse patient.[facility] HospitalIn the event this information is protected by the Federal Confidentiality of Alcohol and Drug Abuse Patient Records regulations: The Federal rules restrict any use of the information to criminally investigate or prosecute any alcohol or drug abuse patient.[facility] HospitalIn the event this information is protected by the Federal Confidentiality of Alcohol and Drug Abuse Patient Records regulations: The Federal rules restrict any use of the information to criminally investigate or prosecute any alcohol or drug abuse patient.[facility] HospitalIn the event this information is protected by the Federal Confidentiality of Alcohol and Drug Abuse Patient Records regulations: The Federal rules restrict any use of the information to criminally investigate or prosecute any alcohol or drug abuse patient.[facility] HospitalIn the event this information is protected by the Federal Confidentiality of Alcohol and Drug Abuse Patient Records regulations: The Federal rules restrict any use of the information to criminally investigate or prosecute any alcohol or drug abuse patient.[facility] HospitalIn the event this information is protected by the Federal Confidentiality of Alcohol and Drug Abuse Patient Records regulations: The Federal rules restrict any use of the information to criminally investigate or prosecute any alcohol or drug abuse patient.[facility] HospitalIn the event this information is protected by the Federal Confidentiality of Alcohol and Drug Abuse Patient Records regulations: The Federal rules restrict any use of the information to criminally investigate or prosecute any alcohol or drug abuse patient.[facility] HospitalIn the event this information is protected by the Federal Confidentiality of Alcohol and Drug Abuse Patient Records regulations: The Federal rules restrict any use of the information to criminally investigate or prosecute any alcohol or drug abuse patient.[facility] HospitalIn the event this information is protected by the Federal Confidentiality of Alcohol and Drug Abuse Patient Records regulations: The Federal rules restrict any use of the information to criminally investigate or prosecute any alcohol or drug abuse patient.[facility] HospitalIn the event this information is protected by the Federal Confidentiality of Alcohol and Drug Abuse Patient Records regulations: The Federal rules restrict any use of the information to criminally investigate or prosecute any alcohol or drug abuse patient.[facility] HospitalIn the event this information is protected by the Federal Confidentiality of Alcohol and Drug Abuse Patient Records regulations: The Federal rules restrict any use of the information to criminally investigate or prosecute any alcohol or drug abuse patient.[facility] HospitalIn the event this information is protected by the Federal Confidentiality of Alcohol and Drug Abuse Patient Records regulations: The Federal rules restrict any use of the information to criminally investigate or prosecute any alcohol or drug abuse patient.[facility] HospitalIn the event this information is protected by the Federal Confidentiality of Alcohol and Drug Abuse Patient Records regulations: The Federal rules restrict any use of the information to criminally investigate or prosecute any alcohol or drug abuse patient.[facility] HospitalIn the event this information is protected by the Federal Confidentiality of Alcohol and Drug Abuse Patient Records regulations: The Federal rules restrict any use of the information to criminally investigate or prosecute any alcohol or drug abuse patient.[facility] HospitalIn the event this information is protected by the Federal Confidentiality of Alcohol and Drug Abuse Patient Records regulations: The Federal rules restrict any use of the information to criminally investigate or prosecute any alcohol or drug abuse patient.[facility] HospitalIn the event this information is protected by the Federal Confidentiality of Alcohol and Drug Abuse Patient Records regulations: The Federal rules restrict any use of the information to criminally investigate or prosecute any alcohol or drug abuse patient.[facility] HospitalIn the event this information is protected by the Federal Confidentiality of Alcohol and Drug Abuse Patient Records regulations: The Federal rules restrict any use of the information to criminally investigate or prosecute any alcohol or drug abuse patient.[facility] HospitalIn the event this information is protected by the Federal Confidentiality of Alcohol and Drug Abuse Patient Records regulations: The Federal rules restrict any use of the information to criminally investigate or prosecute any alcohol or drug abuse patient.[facility] HospitalIn the event this information is protected by the Federal Confidentiality of Alcohol and Drug Abuse Patient Records regulations: The Federal rules restrict any use of the information to criminally investigate or prosecute any alcohol or drug abuse patient.[facility] HospitalIn the event this information is protected by the Federal Confidentiality of Alcohol and Drug Abuse Patient Records regulations: The Federal rules restrict any use of the information to criminally investigate or prosecute any alcohol or drug abuse patient.[facility] HospitalIn the event this information is protected by the Federal Confidentiality of Alcohol and Drug Abuse Patient Records regulations: The Federal rules restrict any use of the information to criminally investigate or prosecute any alcohol or drug abuse patient.[facility] HospitalIn the event this information is protected by the Federal Confidentiality of Alcohol and Drug Abuse Patient Records regulations: The Federal rules restrict any use of the information to criminally investigate or prosecute any alcohol or drug abuse patient.[facility] HospitalIn the event this information is protected by the Federal Confidentiality of Alcohol and Drug Abuse Patient Records regulations: The Federal rules restrict any use of the information to criminally investigate or prosecute any alcohol or drug abuse patient.[facility] HospitalIn the event this information is protected by the Federal Confidentiality of Alcohol and Drug Abuse Patient Records regulations: The Federal rules restrict any use of the information to criminally investigate or prosecute any alcohol or drug abuse patient.[facility] HospitalIn the event this information is protected by the Federal Confidentiality of Alcohol and Drug Abuse Patient Records regulations: The Federal rules restrict any use of the information to criminally investigate or prosecute any alcohol or drug abuse patient.[facility] HospitalIn the event this information is protected by the Federal Confidentiality of Alcohol and Drug Abuse Patient Records regulations: The Federal rules restrict any use of the information to criminally investigate or prosecute any alcohol or drug abuse patient.[facility] HospitalIn the event this information is protected by the Federal Confidentiality of Alcohol and Drug Abuse Patient Records regulations: The Federal rules restrict any use of the information to criminally investigate or prosecute any alcohol or drug abuse patient.[facility] HospitalIn the event this information is protected by the Federal Confidentiality of Alcohol and Drug Abuse Patient Records regulations: The Federal rules restrict any use of the information to criminally investigate or prosecute any alcohol or drug abuse patient.[facility] HospitalIn the event this information is protected by the Federal Confidentiality of Alcohol and Drug Abuse Patient Records regulations: The Federal rules restrict any use of the information to criminally investigate or prosecute any alcohol or drug abuse patient.[facility] HospitalIn the event this information is protected by the Federal Confidentiality of Alcohol and Drug Abuse Patient Records regulations: The Federal rules restrict any use of the information to criminally investigate or prosecute any alcohol or drug abuse patient.[facility] HospitalIn the event this information is protected by the Federal Confidentiality of Alcohol and Drug Abuse Patient Records regulations: The Federal rules restrict any use of the information to criminally investigate or prosecute any alcohol or drug abuse patient.[facility] HospitalIn the event this information is protected by the Federal Confidentiality of Alcohol and Drug Abuse Patient Records regulations: The Federal rules restrict any use of the information to criminally investigate or prosecute any alcohol or drug abuse patient.[facility] HospitalIn the event this information is protected by the Federal Confidentiality of Alcohol and Drug Abuse Patient Records regulations: The Federal rules restrict any use of the information to criminally investigate or prosecute any alcohol or drug abuse patient.[facility] HospitalIn the event this information is protected by the Federal Confidentiality of Alcohol and Drug Abuse Patient Records regulations: The Federal rules restrict any use of the information to criminally investigate or prosecute any alcohol or drug abuse patient.[facility] HospitalIn the event this information is protected by the Federal Confidentiality of Alcohol and Drug Abuse Patient Records regulations: The Federal rules restrict any use of the information to criminally investigate or prosecute any alcohol or drug abuse patient.[facility] HospitalIn the event this information is protected by the Federal Confidentiality of Alcohol and Drug Abuse Patient Records regulations: The Federal rules restrict any use of the information to criminally investigate or prosecute any alcohol or drug abuse patient.[facility] HospitalIn the event this information is protected by the Federal Confidentiality of Alcohol and Drug Abuse Patient Records regulations: The Federal rules restrict any use of the information to criminally investigate or prosecute any alcohol or drug abuse patient.[facility] HospitalIn the event this information is protected by the Federal Confidentiality of Alcohol and Drug Abuse Patient Records regulations: The Federal rules restrict any use of the information to criminally investigate or prosecute any alcohol or drug abuse patient.[facility] HospitalIn the event this information is protected by the Federal Confidentiality of Alcohol and Drug Abuse Patient Records regulations: The Federal rules restrict any use of the information to criminally investigate or prosecute any alcohol or drug abuse patient.[facility] HospitalIn the event this information is protected by the Federal Confidentiality of Alcohol and Drug Abuse Patient Records regulations: The Federal rules restrict any use of the information to criminally investigate or prosecute any alcohol or drug abuse patient.[facility] HospitalIn the event this information is protected by the Federal Confidentiality of Alcohol and Drug Abuse Patient Records regulations: The Federal rules restrict any use of the information to criminally investigate or prosecute any alcohol or drug abuse patient.[facility] the event this information is protected by the Federal Confidentiality of Alcohol and Drug Abuse Patient Records regulations: The Federal rules restrict any use of the information to criminally investigate or prosecute any alcohol or drug abuse patient.[facility] HospitalIn the event this information is protected by the Federal Confidentiality of Alcohol and Drug Abuse Patient Records regulations: The Federal rules restrict any use of the information to criminally investigate or prosecute any alcohol or drug abuse patient.[facility] HospitalIn the event this information is protected by the Federal Confidentiality of Alcohol and Drug Abuse Patient Records regulations: The Federal rules restrict any use of the information to criminally investigate or prosecute any alcohol or drug abuse patient.[facility] HospitalIn the event this information is protected by the Federal Confidentiality of Alcohol and Drug Abuse Patient Records regulations: The Federal rules restrict any use of the information to criminally investigate or prosecute any alcohol or drug abuse patient.[facility] HospitalIn the event this information is protected by the Federal Confidentiality of Alcohol and Drug Abuse Patient Records regulations: The Federal rules restrict any use of the information to criminally investigate or prosecute any alcohol or drug abuse patient.[facility] HospitalIn the event this information is protected by the Federal Confidentiality of Alcohol and Drug Abuse Patient Records regulations: The Federal rules restrict any use of the information to criminally investigate or prosecute any alcohol or drug abuse patient.[facility] HospitalIn the event this information is protected by the Federal Confidentiality of Alcohol and Drug Abuse Patient Records regulations: The Federal rules restrict any use of the information to criminally investigate or prosecute any alcohol or drug abuse patient.[facility] HospitalIn the event this information is protected by the Federal Confidentiality of Alcohol and Drug Abuse Patient Records regulations: The Federal rules restrict any use of the information to criminally investigate or prosecute any alcohol or drug abuse patient.[facility] HospitalIn the event this information is protected by the Federal Confidentiality of Alcohol and Drug Abuse Patient Records regulations: The Federal rules restrict any use of the information to criminally investigate or prosecute any alcohol or drug abuse patient.[facility] HospitalIn the event this information is protected by the Federal Confidentiality of Alcohol and Drug Abuse Patient Records regulations: The Federal rules restrict any use of the information to criminally investigate or prosecute any alcohol or drug abuse patient.[facility] Care Teams (unrecognized sec tion and content) Supervisor Special Education Relationship Specialty Start Date End Date Danna Barrera [facility] [address] [place] [address] [place] [address] PCP - General Optometry 03/29/22 Supervisor Special Education Relationship Specialty Start Date End Date Danna Barrera [facility] [facility] [address] PCP - General Optometry 03/29/22 Supervisor Special Education Relationship Specialty Start Date End Date Danna Barrera [facility] [facility] [place] [address] PCP - General Optometry 03/29/22 Supervisor Special Education Relationship Specialty Start Date End Date Danna Barrera [facility] [facility] [place] [address] PCP - General Optometry 03/29/22 Supervisor Special Education Relationship Specialty Start Date End Date Danna Barrera [facility] [facility] [place] [address] PCP - General Optometry 03/29/22 Supervisor Special Education Relationship Specialty Start Date End Date Danna Barrera [facility] [facility] [place] [address] PCP - General Optometry 03/29/22 Supervisor Special Education Relationship Specialty Start Date End Date Danna Barrera [facility] [facility] [place] [address] PCP - General Optometry 03/29/22 Supervisor Special Education Relationship Specialty Start Date End Date Danna Barrera [facility] [place] [address] PCP - General Optometry 03/29/22 Supervisor Special Education Relationship Specialty Start Date End Date Danna Barrera [facility] [facility] [place] [address] PCP - General Optometry 03/29/22 Supervisor Special Education Relationship Specialty Start Date End Date Danna Barrera [facility] [facility] [place] [address] PCP - General Optometry 03/29/22 Supervisor Special Education Relationship Specialty Start Date End Date Danna Barrera [facility] [facility] [place] [address] PCP - General Optometry 03/29/22 Supervisor Special Education Relationship Specialty Start Date End Date Danna Barrera [facility] [facility] [place] [address] PCP - General Optometry 03/29/22 Supervisor Special Education Relationship Specialty Start Date End Date Danna Barrera [facility] [facility] [place] [address] PCP - General Optometry 03/29/22 Supervisor Special Education Relationship Specialty Start Date End Date Danna Barrera [facility] [address] [place] [address] [place] [address] PCP - General Optometry 03/29/22 Supervisor Special Education Relationship Specialty Start Date End Date Danna Barrera NPI: [facility] [address] [place] [address] [place] [address] PCP - General Optometry 03/29/22 Supervisor Special Education Relationship Specialty Start Date End Date Danna Barrera NPI: [facility] [address] [place] [address] [place] [address] PCP - General Optometry 03/29/22 Supervisor Special Education Relationship Specialty Start Date End Date Danna Barrera NPI: [facility] [address] [place] [address] [place] [address] PCP - General Optometry 03/29/22 Supervisor Special Education Relationship Specialty Start Date End Date Danna Barrera NPI: [facility] [address] [place] [address] [place] [address] PCP - General Optometry 03/29/22 Supervisor Special Education Relationship Specialty Start Date End Date Danna Barrera NPI: [facility] [facility] [place] [address] PCP - General Optometry 03/29/22 Supervisor Special Education Relationship Specialty Start Date End Date Danna Barrera NPI: [facility] [facility] [place] [address] PCP - General Optometry 03/29/22 Supervisor Special Education Relationship Specialty Start Date End Date Danna Barrera NPI: [facility] [place] [address] PCP - General Optometry 03/29/22 Supervisor Special Education Relationship Specialty Start Date End Date Danna Barrera NPI: [facility] [facility] [place] [address] PCP - General Optometry 03/29/22 Supervisor Special Education Relationship Specialty Start Date End Date Danna Barrera NPI: [facility] [place] [address] PCP - General Optometry 03/29/22 Supervisor Special Education Relationship Specialty Start Date End Date Danna Barrera NPI: [facility] [place] [address] PCP - General Optometry 03/29/22 Supervisor Special Education Relationship Specialty Start Date End Date Danna Barrera NPI: [facility] [place] [address] PCP - General Optometry 03/29/22 Supervisor Special Education Relationship Specialty Start Date End Date Danna Barrera NPI: [facility] [place] [address] PCP - General Optometry 03/29/22 Supervisor Special Education Relationship Specialty Start Date End Date Danna Barrera [facility] [address] [facility] [place] [address] PCP - General Optometry 03/29/22 Supervisor Special Education Relationship Specialty Start Date End Date Afsaneh Green DO [address] [facility] [address] [place] [address] PCP - General Internal Medicine 08/15/24 Team [...] April 17, 2025 End: April 17, 2025 Team Status: Active Member Role/Relationship Status Dates Dr. Afsaneh Green DO Family Provider Active Dr. Afsaneh Green DO Primary Care Provider Active Team Status: Inactive Member Role/Relationship Status Dates Dr. Afsaneh Green DO Primary Care Provider Active Start: April 17, 2025 End: April 17, 2025 Dr. Rory Sims MD Attending Provider Active Start: April 17, 2025 End: April 17, 2025 Dr. Rory Sims MD Referring Provider Active Start: April 17, 2025 End: April 17, 2025 Team Status: Inactive Member Role/Relationship Status Dates Dr. Afsaneh Green DO Primary Care Provider Active Start: June 10, 2025 End: June 10, 2025 Dr. Afsaneh Green DO Attending Provider Active Start: June 10, 2025 End: June 10, 2025 Dr. Afsaneh Green DO Referring Provider Active Start: June 10, 2025 End: June 10, 2025 Team Status: Active Member Role/Relationship Status Dates Dr. Afsaneh Green DO Primary care physician Active Team Status: Inactive Member Role/Relationship Status Dates Dr. Afsaneh Green DO Primary care physician Active Start: April 17, 2025 End: April 17, 2025 Dr. Rory Sims MD Attending physician Active Start: April 17, 2025 End: April 17, 2025 Dr. Rory Sims MD Referring Provider Active Start: April 17, 2025 End: April 17, 2025 Team Status: Inactive Member Role/Relationship Status Dates Dr. Afsaneh Green DO Primary care physician Active Start: June 10, 2025 End: June 10, 2025 Dr. Afsaneh Green DO Attending physician Active Start: June 10, 2025 End: June 10, 2025 Dr. Afsaneh Green DO Referring Provider Active Start: June 10, 2025 End: June 10, 2025 Team Status: Active Member Role/Relationship Status Dates Dr. Afsaneh Green DO Primary care physician Active Start: July 23, 2025 Ivette Beck Attending physician Active Start: July 23, 2025 Team Status: Inactive Member Role/Relationship Status Dates Dr. Afsaneh Green DO Primary care physician Active Start: July 29, 2025 End: July 29, 2025 Dr. Afsaneh Green DO Referring Provider Active Start: July 29, 2025 End: July 29, 2025 Dr. Anders Medina MD Attending physician Active Start: July 29, 2025 End: July 29, 2025 Reason for Visit (unrecogniz ed section and content) Reason Comments Pain Left leg pain Specialty Diagnoses / Procedures Referred By Contliz t Referred To Contact PAIN MANAGEMENT Diagnoses S82.52XA, S82.852A, S93.05XA, F45.42, F43.23,G90.522, L03.116, T81.31XA, L97.929, T70.0XXA, T81.89XA, A49.01, A49.02, M86.8X7, H90.3, M86.8X6, S88.112A, S83.241A, L90.5, M17.11, G90.521, M23.41, M23.91 Procedures REFERRAL TO [facility] Estela Day PA-C [address] [place] [address] Pain Lizzy Montague [address] [place] [id number] Referral ID Status Reason Start Date Expiration Date Visits Re quested Visits Authorized [id number] Closed 12/27/2023 12/27/2023 1 1 Reason Comments Leg Pain Left-[facility] Specialty Diagnoses / Procedures Referred By Contac t Referred To Contact Pain Management / PAIN MANAGEMENT Diagnoses FOLLOW UP [facility] Procedures REFERRAL TO [facility] EST PATIENT Danna Barrera [facility] [facility] [place] [address] Estela Day PA-C [address] [place] [address] Referral ID Status Reason Start Date Expiration Date Visits Re quested Visits Authorized [id number] Closed 06/01/2023 06/01/2023 1 1 Specialty Diagnoses / Procedures Referred By Contact Referred To Contact Anesthesiology / PAIN MANAGEMENT Diagnoses FOLLOW UP Procedures EST PATIENT Dawit Hernandez MD [address] [place] [address] Dawit Hernandez MD [address] [place] [address] Referral ID Status Reason Start Date Expiration Date V isits Requested Visits Authorized [id number] Closed Patient Cleared - Admin/Chairm an/Director advise to proceed 01/26/2023 01/26/2023 1 1 Reason Onset Date Comments Refill Request 04/20/2022 Reason Comments Pain Specialty Diagnoses / Procedures Referred By Contac t Referred To Contact Pain Management / PAIN MANAGEMENT Diagnoses follow up Procedures FOLLOW-UP/REASSESSMENT EST PATIENT Danna Barrera [facility] [address] [place] [address] Estela Day PA-C [address] [place] [address] Referral ID Status Reason Start Date Expiration Date Visits Requested Visits Authorized [id number] Pending Review OON/Self Pay Override Patient Cleared - Admin/Chair man/Directo r advise to proceed 05/17/2022 08/15/2022 1 1 Reason Comments Orders Reason Onset Date Comments Refill Request 06/22/2022 Referral ID Status Reason Start Date Expiration Date Visits Re quested Visits Authorized [id number] Closed 06/28/2022 08/27/2022 1 1 Reason Onset [...] / PAIN MANAGEMENT Diagnoses FOLLOW UP [facility] Procedures EST PATIENT Dawit Hernandez MD [address] [place] [address] Estela Day PA-C [address] [place] [address] Referral ID Status Reason Start Date Expiration Date Visits Re quested Visits Authorized [id number] Closed 11/02/2022 11/02/2022 1 1 Reason Comments Pain Left leg [facility] Specialty Diagnoses / Procedures Referred By Contac t Referred To Contact Pain Management / PAIN MANAGEMENT Diagnoses FOLLOW UP Procedures EST PATIENT Estela Day PA-C [address] [place] [address] Estela Day PA-C [address] [place] [address] Referral ID Status Reason Start Date Expiration Date Visits Requested Visits Authorized [id number] Pending Review Patient Cleared - Admin/Chair man/Directo r advise to proceed 12/14/2022 03/14/2023 1 1 Reason Onset Date Comments Refill Request 12/21/2022 Reason Onset Date Comments Refill Request 01/12/2023 Reason Onset Date Comments Refill Request 02/21/2023 Referral ID Status Reason Start Date Expiration Date Visits Requested Visits Authorized [id number] Pending Review Patient Cleared - Admin/Chair man/Directo r advise to proceed 01/26/2023 04/26/2023 1 1 Reason Onset Date Comments Refill Request 03/10/2023 Reason Onset Date Comments Refill Request 04/15/2023 Reason Comments Nucynta denied - [facility] Referral ID Status Reason Start Date Expiration Date V isits Requested Visits Authorized [id number] Closed Patient Cleared - Admin/Chairm an/Director advise [...] / PAIN MANAGEMENT Diagnoses FOLLOW UP [facility] Procedures EST PATIENT Estela Day PA-C [address] [place] [address] Estela Day PA-C [address] [place] [address] Referral ID Status Reason Start Date Expiration Date V isits Requested Visits Authorized [id number] Closed Patient Cleared - Admin/Chairm an/Director advise to proceed or did not respond 07/13/2023 10/11/2023 1 1 Reason Onset Date Comments Refill Request 07/19/2023 Reason Comments Request for OT Eval Reason Onset Date Comments Refill Request 09/26/2023 Specialty Diagnoses / Procedures Referred By Contac t Referred To Contact PAIN MANAGEMENT Diagnoses Follow-up exam Procedures FOLLOW-UP/REASSESSMENT Estela Day PA-C [address] [place] [address] [address] Referral ID Status Reason Start Date Expiration Date Visits Re quested Visits Authorized [id number] Closed 10/05/2023 10/05/2023 1 1 Reason Onset Date Comments Refill Request 01/12/2024 Reason Onset Date Comments Refill Request 01/20/2024 Reason Onset Date Comments Refill Request 02/27/2024 Reason Onset Date Comments Refill Request 03/19/2024 Reason Comments Medication Problem Reason Comments Update on rickreallW Reason Comments Pain Right leg pain Specialty Diagnoses / Procedures Referred By Contac t Referred To Contact PAIN MANAGEMENT Diagnoses M17.11 G90.521 F45.42 Procedures REFERRAL TO [facility] Estela Day PA-C [address] [place] [address] [address] Referral ID Status Reason Start Date Expiration Date Visits Re quested Visits Authorized [id number] Closed 04/04/2024 04/04/2024 1 1 Reason Comments Results Reason Comments Cough Runny nose x1 mth Reason Comments Request for C9 - scooter left & cover Specialty Diagnoses / Procedures Referred By Contac t Referred To Contact PAIN MANAGEMENT Diagnoses G90.522 G90.521 M17.11 F45.42 Procedures REFERRAL TO [facility] Estela Day PA-C [address] [place] [address] [address] Referral ID Status Reason Start Date Expiration Date Visits Re quested Visits Authorized [id number] Closed 05/25/2024 05/25/2024 1 1 Reason Comments Change in POR for BWC Reason Onset Date Comments Refill Request 06/25/2024 Reason Onset Date Comments Refill Request 06/26/2024 Reason Comments Kendrick PEPE Reason Comments New POR referral Reason Comments Appointment Cx Specialty Diagnoses / Procedures Referred By Contac t Referred To Contact Pain Management / PAIN MANAGEMENT Diagnoses FOLLOW UP Procedures EST PATIENT Estela Day PA-C [address] [place] [address] Estela Day PA-C [address] [place] [address] Referral ID Status Reason Start Date Expiration Date Visits Re quested Visits Authorized [id number] Closed 02/07/2024 02/07/2024 1 1 Goals (unrecognized section and content) Goals may be documented in a n alternate sectionGoals may be documented in an alternate sectionGoals may be documented in an alternate sectionGoals may be documented in an [...] BE BASED ON THE PRIMARY CLINICAL RECORDS. [employer] provides no warranty or guarantee of the accuracy or completeness of information in this document.
[2025-08-23] MEDS: Lactated Ringers 1,000 ML 15 ML IV (07:57)
--- NOTE | 2025-08-23 08:11 | PRE.ANES_ITS ---
ASA Classification* ASA Classification ASA Classification: 2 Assessment & Plan Anesthesia* Anesthesia Assessment Anesthesia Assessment: Discussed sedation and/or anesthesia options, risks, benefits, and alternatives with patient/parents/legal guardian/POA. Questions invited. The patient/parents/legal guardian/POA seems to understand and agrees to proceed with anesthesia plan. Reviewed the physical assessment, medical history, allergy history and patient home medications list prior to surgery/procedure/anesthetic and documented any changes. Performed airway and anesthesia risk assessments. Anesthesia Type Anesthesia Type: MAC History Source History Obtained from:: Patient and Chart Anesthesia Focused Assessment* Temperature: 79.8 F Pulse Rate: 109 Blood Pressure: 129/90 Respiratory Rate: 18 Pulse Ox: 100 Oxygen Delivery Method: Room Air Airway Assessment Mouth opens: >3 cm Mallampati Score: III Teeth Condition: Dentures (Patient has full upper dentures which are out.) and Partial (Partial lower dentures are out.) Neck Range of motion (ROM): Limited ROM (Slight Decrease) Labs Anesthesia Preop lab: CBC WBC, (4.4-11.0) 11.4 K/mm3 H 06/10/25, 07:24 RBC, (4.6-6.2) 4.19 M/mm3 L 06/10/25, 07:24 Hgb, (13.0-16.5) 12.6 g/dL L 06/10/25, 07:24 Hct, (40-54) 38.1 % L 06/10/25, 07:24 Plt Count, (150-450) 357 K/mm3 06/10/25, 07:24 CHEMISTRY Potassium, (3.3-5.1) 4.3 mmol/L 06/10/25, 07:24 Sodium, (133-145) 139 mmol/L 06/10/25, 07:24 BUN, (4-19) 21 mg/dL H 06/10/25, 07:24 Creatinine, (0.70-1.20) 0.87 mg/dL 06/10/25, 07:24 Glucose, (70-99) 100 mg/dL H 06/10/25, 07:24 TSH, (0.300-4.200) 2.120 uIU/mL 06/10/25, 07:24 COAG Pre-Assessment Diagnosis/Proposed Procedure Planned Operative Procedure(s): Colonoscopy - Open Access Anesthesia History Anesthesia History - stave block splitter: Anesthesia History - stave block splitter Hx Hospitalization No 08/06/25 16:01 Any Problems With Anesthesia No 08/06/25 16:01 Cholinesterase deficiency No 08/06/25 16:01 You/Your Family Experience No 08/06/25 16:01 fever (hyperthermia) with Relationship Recent Exposure to Contagious Disease Does patient have nerve Yes 08/06/25 16:01 stimulator Patient instructed to have device shut off --Does patient have Pacemaker No 08/23/25 07:45 or ICD? When Was Last Pacemaker Check QUESTION #4 FULL TEXT: You/Your Family Experience fever (hyperthermia) with Anesthesia Last Oral Intake Last Oral intake: Last Oral Intake NPO since 0000 08/23/25 07:45 Meds taken in AM with sips of No 08/23/25 07:45 water? Meds patient instructed to take am of surgery Any additional information?: Yes NPO since: 00:00 Meds taken in AM with sips of water?: No PONV PONV - stave block splitter: PONV - stave block splitter Female No 08/06/25 16:01 HX of Motion Sickness No 08/06/25 16:01 HX of N/V After Surgery No 08/06/25 16:01 Non-Smoker Yes 08/06/25 16:01 Duration of Surgery greater No 08/06/25 16:01 than 60 minutes Number of Risk Factors 1 08/06/25 16:01 PONV Score Low Risk 08/06/25 16:01 Height & Weight Height & Weight: Anesthesia: Height & Weight Height 5 ft 7 in 08/23/25 07:45 Weight: 79.2 kg 08/23/25 07:45 Body Mass Index (BMI) 27.3 08/23/25 07:45 Respiratory Assessment Respiratory Assessment - stave block splitter: Respiratory Tract Infection Hx - stave block splitter Hx Respiratory Tract Infection No 08/06/25 16:01 STOP Sleep Apnea STOP Sleep Apnea - stave block splitter: STOP Sleep Apnea - stave block splitter Hx Hypertension No 08/06/25 16:01 Hx Sleep Apnea No 08/06/25 16:01 CPAP BIPAP Do you snore loudly (louder No 08/06/25 16:01 than talking or can be heard Do you often feel tired/ No 08/06/25 16:01 fatigued/ sleepy during daytime? Has anyone observed you stop No 08/06/25 16:01 breathing during sleep? STOP Results Negative 08/06/25 16:01 QUESTION #5 FULL TEXT : Do you snore loudly (louder than talking or can be heard through closed doors)? 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 Specify any problems Hx of Preganancy in last 3 N/A 08/06/25 16:01 Months Nurse Filling Out Transfusion JZOLLINGE 08/06/25 16:01 & Questions: Date: 08/06/25 08/06/25 16:01 Time: 16:02 08/06/25 16:01 Patient unable to answer at this time (ie. confused, unrespo /Reproduction History /Reproductive History - stave block splitter: /Reproductive Hx- stave block splitter Hx Now No 08/06/25 16:01 Gestational Age (in weeks): EDC: Hx Hx Para Hx Section SAB No 08/06/25 16:01 Active Medications Active Medications: Current Medications Generic Name Dose Route Start Last Admin Trade Name Freq PRN Reason Stop Dose Admin Lactated Ringer's 1,000 mls @ 15 mls/hr 08/23/25 07:45 08/23/25 07:57 IV 15 mls/hr .Q48H DAILY Administration PFSH Medical History Wears hearing aid Wears glasses Wears dentures Wears partial dentures Arthritis Dietary restriction Non-smoker MGUS (monoclonal gammopathy of unknown significance) Hearing loss, bilateral Traumatic injury of lower leg GERD (gastroesophageal reflux disease) Anemia Vitamin D deficiency, unspecified Hypercalcemia Hyperkalemia Insomnia, unspecified Complex regional pain syndrome I, unspecified Sensorineural hearing loss, bilateral Diabetes Abnormal blood cell count Home Medications Medication Instructions Recorded Last Taken Type ascorbic acid (vitamin C) 1,000 mg 1,000 mg PO DAILY 0 01/28/18 Unknown History tablet (Vitamin C) duloxetine 60 mg capsule,delayed 60 mg PO BID 01/28/18 Unknown History release multivitamin (Daily Multiple 1 ea PO DAILY 01/28/18 Un known History tablet) naloxegol 25 mg tablet (Movantik) 25 mg PO DAILY Const ipation 01/28/18 Unknown History omeprazole 40 mg capsule,delayed 40 mg PO BID 01/28/18 Unknown History release mecobalamin (vitamin B12) 1,000 1,000 mcg PO QDAY 07/02 01/22 Unknown History mcg lozenges metformin 500 mg tablet 500 mg PO BID 07/23/25 Unkno wn History terazosin 1 mg capsule 1 mg PO QDAY 07/23/25 Unknow n History cholecalciferol (vitamin D3) 125 125 mcg PO QDAY 07/29 Unknown History mcg (5,000 unit) capsule tapentadol 100 mg tablet (Nucynta) 100 mg PO BID 07/29 Unknown History Allergy/AdvReac Type Severity Reaction Status Date / Time adhesive tape AdvReac Rash Verified 08/23/25 07:44 Family History Mother Cancer cervical Other Diabetes Heart disease Hypertension Surgical History History of insertion of nerve stimulator Hx of amputation below knee Hx of vasectomy Social History Smoking Status: Never smoker alcohol intake: never substance use type: does not use Review of Systems (Anesthesia) ROS Narrative System reviewed and no additional complaints, except as documented.
--- NOTE | 2025-08-23 08:47 | HP.PCM_ITS ---
HPI - General HPI Narrative CONG STEVENS, is a 60 M who presents for screening colonoscopy. He has never had a colonoscopy in the past. He denies abdominal pain or blood in the stool. No family history of colon cancer. COUNT INCLUDES THE [facility] Medical History Wears hearing aid Wears glasses Wears dentures Wears partial dentures Arthritis Dietary restriction Non-smoker MGUS (monoclonal gammopathy of unknown significance) Hearing loss, bilateral Traumatic injury of lower leg GERD (gastroesophageal reflux disease) Anemia Vitamin D deficiency, unspecified Hypercalcemia Hyperkalemia Insomnia, unspecified Complex regional pain syndrome I, unspecified Sensorineural hearing loss, bilateral Diabetes Abnormal blood cell count Home Medications Medication Instructions Recorded Last Taken Type ascorbic acid (vitamin C) 1,000 mg 1,000 mg PO DAILY 0 01/28/18 Unknown History tablet (Vitamin C) duloxetine 60 mg capsule,delayed 60 mg PO BID 01/28/18 Unknown History release multivitamin (Daily Multiple 1 ea PO DAILY 01/28/18 Un known History tablet) naloxegol 25 mg tablet (Movantik) 25 mg PO DAILY Const ipation 01/28/18 Unknown History omeprazole 40 mg capsule,delayed 40 mg PO BID 01/28/18 Unknown History release mecobalamin (vitamin B12) 1,000 1,000 mcg PO QDAY 07/02 01/22 Unknown History mcg lozenges metformin 500 mg tablet 500 mg PO BID 07/23/25 Unkno wn History terazosin 1 mg capsule 1 mg PO QDAY 07/23/25 Unknow n History cholecalciferol (vitamin D3) 125 125 mcg PO QDAY 07/29 Unknown History mcg (5,000 unit) capsule tapentadol 100 mg tablet (Nucynta) 100 mg PO BID 07/29 Unknown History Allergy/AdvReac Type Severity Reaction Status Date / Time adhesive tape AdvReac Rash Verified 08/23/25 07:44 Family History Mother Cancer cervical Other Diabetes Heart disease Hypertension Surgical History History of insertion of nerve stimulator Hx of amputation below knee Hx of vasectomy Social History Smoking Status: Never smoker alcohol intake: never substance use type: does not use Past Medical/Surgical History Planned Operation Planned Operative Procedure(s): Colonoscopy - Open Access Previous Hospitalizations/Surgeries HX Hospitalizations: No Any Problems With Anesthesia: No You/Your Family Experience Fever (Hyperthermia) With Anes: No Cholinesterase deficiency: No Cardiovascular Hx Chest Pain within Last 2 months: No Hx of Irregular Heartbeat and/or Afib: No Hx Heart Attack: No Hx Congestive Heart Failure: No Hx Hypertension: No Hx Pacemaker: No Hx Cardiac Surgery/Stents/Etc.: No Respiratory Hx Chronic Obstructive Pulmonary Disease (COPD): No Hx Asthma: No Hx Emphysema: No Hx Sleep Apnea: No Hx Respiratory Tract Infection/Cold (presently): No Do You Snore Loudly (louder than talking or can be heard): No Do You Often Feel Tired/ Fatigued/ Sleepy Dring Daytime?: No Has Anyone Observed You Stop Breathing During Sleep?: No Result (for STOP score): Negative Smoking Status: Never smoker Gastrointestinal Hx Ulcer: No Special diet followed at home: No Neurological Hx Seizures: No Hx Multiple Sclerosis: No Hx Parkinson's Disease: No Hx Head/Neck Injury: No Hx Headaches: Yes Hx Back Injury/Pain: No Does patient have nerve stimulator: Yes Blood Disorder Hx Anemia: No Reproduction : No Genitourinary Hx Dialysis: No Musculoskeletal Hx Arthritis: Yes Hx Rheumatoid Arthritis: No Endocrine Hx Diabetes: No Thyroid Disease: No Psycho/Social Hx Anxiety: No Hx Depression: Yes Hx Dementia: No Miscellaneous Hx Cancer: No Allergies adhesive tape Adverse Reaction (Verified 08/23/25 07:44) Rash Discharge Is Pt Admitted From a Longterm, or a [place] [facility]: No After D/C, Where Do you Plan to Go: Return Home Vital Signs Vital Signs Vital Signs: 08/23/25 07:45 08/23/25 07:45 08/23/25 08:17 Temperature 79.8 F L 79.8 F L Temperature Source Temporal Pulse Rate 109 H 109 H Respiratory Rate 18 18 Respiratory Pattern Normal Blood Pressure 129/90 H 129/90 H Blood Pressure Mean 103 Blood Pressure Source Monitor Blood Pressure Position Semi-Fowlers Blood Pressure Location Left Arm Pulse Ox 100 100 Oxygen Delivery Method Room Air Room Air Weight Weight: 174 lb 9.698 oz Body Mass Index (BMI) 27.3 Physical Exam Const alert and oriented x3 HEENT normocephalic Eyes PERRL Resp normal respiratory effort and normal air movement Cardio regular rate and regular rhythm GI soft to palpation, non-tender and non-distended Extremity normal to inspection Assessment & Plan Assessment/Plan (1) Screen for colon cancer: PLAN: I explained endoscopy in detail to the patient. I explained the risks including but not limited to stroke or heart attack with anesthesia, perforation of the GI tract, bleeding, infection. I explained that any of these could necessitate further emergency surgery. The patient understands and all questions were answered sufficiently. The patient wishes to proceed with procedure. Martinez Rodriguez MD Pager: [facility] [address] [place] [address] [address] [place] [address] Office: Surgery Risks - Colonoscopy Risks Include but are not Limited To: Risks include but are not limited to: Bleeding, perforation requiring further surgery, inability to complete colonoscopy requiring barium enema.
--- NOTE | 2025-08-23 09:16 | OP.COLON_ITS ---
Patient Name: Zac Harrison Procedure Date: 08/23/2025 8:50 AM Date of : 1965 Age: 60 Procedure: Colonoscopy Indications: Screening for colorectal malignant neoplasm Providers: Martinez Rodriguez MD Referring MD: Afsaneh Krause Medicines: Propofol per Anesthesia Patient Profile: This is a 60 year old male. Refer to note in patient chart for documentation of history and physical. Last Colonoscopy: none. The patient's first colonoscopy is today. Complications: No immediate complications. Procedure: Pre-Anesthesia Assessment: - Prior to the procedure, a History and Physical was performed, and patient medications and allergies were reviewed. The patient's tolerance of previous anesthesia was also reviewed. The risks and benefits of the procedure and the sedation options and risks were discussed with the patient. All questions were answered, and informed consent was obtained. Prior Anticoagulants: The patient has taken no anticoagulant or antiplatelet agents. After reviewing the risks and benefits, the patient was deemed in satisfactory condition to undergo the procedure. After I obtained informed consent, the scope was passed under direct vision. Throughout the procedure, the patient's blood pressure, pulse, and oxygen saturations were monitored continuously. The Colonoscope was introduced through the anus and advanced to the cecum, identified by appendiceal orifice and ileocecal valve. The colonoscopy was performed without difficulty. The patient tolerated the procedure well. The quality of the bowel preparation was good. The ileocecal valve, appendiceal orifice, and rectum were photographed. Scope In: 8:59:57 AM Scope Withdrawal Time 0 hours 5 minutes 21 seconds Scope Out: 9:13:55 AM Total Procedure Duration Time 0 hours 13 minutes 58 seconds Findings: The entire examined colon appeared normal on direct and retroflexion views. Impression: - The entire examined colon is normal on direct and retroflexion views. - No specimens collected. Recommendation: - Discharge patient to home. - Resume previous diet. - Continue present medications. - Repeat colonoscopy in 10 years for screening purposes. Procedure Code(s): --- Professional --- 32039, Colonoscopy, flexible; diagnostic, including collection of specimen(s) by brushing or washing, when performed (separate procedure) Diagnosis Code(s): --- Professional --- Z12.11, Encounter for screening for malignant neoplasm of colon CPT copyright 2021 [employer]. All rights reserved. The codes documented in this report are preliminary and upon senior pharmacy technician review may be revised to meet current compliance requirements. Martinez Rodriguez MD 08/23/2025 9:16:06 AM This report has been signed electronically. Number of Addenda: 0 Note Initiated On: 08/23/2025 8:50 AM
--- NOTE | 2025-08-23 09:16 | OP.PROVAT_ITS ---
08/23/2025 Afsaneh Krause [address] [place] [address] Re : Colonoscopy procedure for Zac Harrison Dear Dr. Krause This procedure was performed on Saturday, August 23, 2025. My impressions and recommendations are as follows: Impressions : - The entire examined colon is normal on direct and retroflexion views. - No specimens collected. Recommendations : - Discharge patient to home. - Resume previous diet. - Continue present medications. - Repeat colonoscopy in 10 years for screening purposes. My findings are described in the full procedure note, which is enclosed. If I can be of further assistance, please feel free to contact me at Doctor phone number(s): , Work: . Sincerely, Martinez Rodriguez MD 08/23/2025 9:16:06 AM This report has been signed electronically.
--- NOTE | 2025-08-23 09:26 | PCM.POST.ANE ---
Anesthesia: Postop Eval I Current Vital Signs Temperature: 97.3 F Pulse Rate: 99 Blood Pressure: 91/68 Respiratory Rate: 16 Pulse Ox: 100 Oxygen Delivery Method: Room Air Assessment Airway patent: Yes Spontaneous unlabored respirations: Yes Mental status: Asleep nausea: No Vomiting: No Anesthesia Complication: No Fluid Hydration Crystalloid volume administer (ml): 500 Total IV fluid infused: 500 Progress Note Anesthesia document: Postop Eval 1 completed: Yes
--- NOTE | 2025-08-23 12:01 | PCM.POSTANE2 ---
Anesthesia Postop Eval I Sum Postop Eval Completion status Anesthesia document: Postop Eval 1 completed: Yes Anesthesia Postop Eval I Summary Anesthesia Postop Eval I Summary: Anesthesia Postop Eval I: Assessment Summary Airway patent Yes 08/23/25 09:27 [email or web address] Spontaneous unlabored Yes 08/23/25 09:27 [email or web address] respirations Mental status Asleep 08/23/25 09:27 [email or web address] nausea No 08/23/25 09:27 [email or web address] Vomiting No 08/23/25 09:27 [email or web address] Anesthesia Postop Eval I: Fluid Summary Crystalloid volume administer 500 08/23/25 09:27 [email or web address] (ml) Colloids volume administered ( ml) Blood Product volume administered (ml) Total IV fluid infused 500 08/23/25 09:27 [email or web address] Anesthesia Postop Eval I: Summary Notes Anesthesia Complication No 08/23/25 09:27 [email or web address] Anesthesia Complication Comment: Post-operative progress note Anesthesia: Postop Eval II Evaluation Mental status: Awake Pain Level: 0 nausea: No Vomiting: No
== END 2025-08-23 10:22 | disposition home or self-care (01) ==
LOC: EN 07:20 → AC 07:21
PROVIDERS: PCP Internal Medicine; Referring Provider Internal Medicine; Visit Provider Surgery
PROC: 0DJD8ZZ Inspection of Lower Intestinal Tract, Via Natural or Artificial Opening Endoscopic (ICD-10-PCS; CPT 45378; principal; 2025-08-23 08:25)
DX: Z12.11 Encounter for screening for malignant neoplasm of colon (principal); E11.9 Type 2 diabetes mellitus without complications; K21.9 Gastro-esophageal reflux disease without esophagitis; Z79.899 Other long term (current) drug therapy; Z79.84 Long term (current) use of oral hypoglycemic drugs; Z98.52 Vasectomy status
CPT/HCPCS: 45378; J2405